=== PATIENT | male | born 1940 | race Caucasian/White ===

== ENCOUNTER 2023-11-18 10:05 | Outpatient (CLI) | payer MEDICARE, SELFPAY ==
--- NOTE | ~2023-11-18 | XR_ITS ---
EXAMINATION: XR chest 2V DATE: 11/18/2023 10:32 INDICATION: PICC line placement TECHNIQUE: frontal and lateral views of the chest were obtained. COMPARISON: None FINDINGS: Right upper extremity peripherally inserted central venous catheter (PICC) tip at the caudal superio r vena cava. Opacities at the bilateral lung bases with blunting of the bilateral costophrenic angle s and posterior sulci consistent with small right and tiny left pleural effusions with associated bas ilar atelectasis. No other airspace opacities, pulmonary edema or pneumothorax. Heart size is normal. Three lead pacemaker seen with leads projecting over the expected locations of the right atrial appe ndage, apex of the right ventricle and overlying the left ventricle likely having traversed the coron yrn sinus. IMPRESSION: 1. Right PICC line tip at the caudal superior vena cava. 2. Small right and very small left pleural effusions with associated basilar atelectasis although pne umonia not excludable. Reviewed, dictated and finalized at location B. IMPRESSION: 1. Right PICC line tip at the caudal superior vena cava. 2. Small right and very small left pleural effusions with associated basilar at electasis although pneumonia not excludable.
== END 2023-11-18 10:06 | disposition home or self-care (01) ==
PROVIDERS: PCP Family Medicine; Visit Provider Family Medicine
DX: Z45.2 Encounter for adjustment and management of vascular access device (principal); J90 Pleural effusion, not elsewhere classified
CPT/HCPCS: 71046

== ENCOUNTER 2024-03-12 14:16 | Outpatient (CLI) | payer MEDICARE, SELFPAY ==
--- NOTE | ~2024-03-12 | CT_ITS ---
EXAMINATION: CT brain wo/w con DATE: 03/12/2024 15:07 INDICATION: Unspecified dementia. TECHNIQUE: Computed tomography (CT) of the head was performed without and with 100 mL Omnipaque 350 i ntravenous contrast. The mA was adjusted according to patient size. Iterative reconstruction techniqu e was employed. The dose-length product was 1664.67 mGy-cm. COMPARISON: None FINDINGS: There is an old infarct in the right basal ganglia and adjacent white matter. There are sca ttered areas of low attenuation in the cerebral white matter. There is no intracranial hemorrhage, ac umkumiut infarction, or abnormal intracranial mass lesion. The ventricles are normal in size. The orbits a re normal. The paranasal sinuses are clear. The mastoid air cells are normal. IMPRESSION: 1. 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 2. Extensive nonspecific cerebral white matter disease, which likely represents chronic small vessel ischemic disease. Reviewed, dictated and finalized at location A. NCE FORCE SENIOR OFFICER
[2024-03-12 14:56] LABS: Estimated Glomerular Filt Rate > 60
== END 2024-03-12 14:17 | disposition home or self-care (01) ==
PROVIDERS: PCP Internal Medicine; Visit Provider Internal Medicine
DX: F03.90 Unspecified dementia, unspecified severity, without behavioral disturbance, psychotic disturbance, mood disturbance, and anxiety (principal); R90.82 White matter disease, unspecified
CPT/HCPCS: 70470; Q9967

== ENCOUNTER 2024-04-18 11:36 | Emergency (ER) | payer MEDICARE, SELFPAY ==
[2024-04-18] VITALS (13 sets, daily range): BP systolic 104–132; BP diastolic 49–64; PULSE 70–90; RESP 14–18; TEMP 36.6–36.7; O2SAT 95–100
--- OUTSIDE RECORDS SUMMARY | 2024-04-18 12:21 | XMS_ITS | Encounter Summary ---
Author Organization [facility] Address [address] [place] [address] Phone Care Team Providers Care Air Traffic Instructor Name Role Phone Jonah Cook MD Primary Care Provider [phone] Margarita Jaimes MD Unavailable [phone] Jeevan Gibson MD PhD Unavailable [phone] Olu Reis MD Unavailable +[phone] Brant Rodriguez DPM Unavailable + [phone] Cathi Freeman MD Unavailable Cesar Morris MD Primary Care Provider [phone] Serjio Pierre MD Primary Care Provider +[phone] Chris Gentile MD Primary Care Provider + [phone] Unknown, Notinfile Primary Care Provider Unavail able Tiana Hilario NP Primary Care Provider [phone] Encounter Details Date Type Department Care Team (Late st Contact Info) Description 04/27/2012 Orders Only [facility] ProviderPreston MD [address] [place] [address] Social History Tobacco Use Types Packs/Day Years Used Date Smoking Tobacco: Never Assessed Sex and Gender Information Value Date Recorded Sex Assigned at Male 05/11/2018 9:16 AM BUFFING MACHINE OPERATOR Legal Sex Male 1:34 AM BUFFING MACHINE OPERATOR Gender Identity Not on file Sexual Orientation Straight 05/11/2018 9: 16 AM BUFFING MACHINE OPERATOR documented as of this encounter Plan of Treatment Not on file documented as of this encounter Procedures Procedure Name Priority Date/Time Associated Diagnosis Comments CARDIOLOGY REPORT 04/27/2012 documented in this encounter Results * CARDIOLOGY REPORT (04/27/2012) Anatomical Region Laterality Modality Other Narrative 04/27/2012 Ordered by an unspecified provider. us Historical Provider [facility] JACOB ARTEAGA Final Result documented in this encounter Visit Diagnoses Not on filedocumented in this encounter Additional Health Concerns Infection Onset Date Last Indicated Resolved Time MDR gram neg/ESBL Comment:Contact 09/10/2021 10/19/2023 RSV, droplet 02/28/2023 02/28/2023 03/14/2023 3:05 AM BUFFING MACHINE OPERATOR COVID: Suspected 03/19/2023 03/19/2023 03/19/2023 9:02 AM BUFFING MACHINE OPERATOR COVID: Suspected 07/08/2023 07/08/2023 07/08/2023 10:20 PM CDT documented as of this encounter Care Teams Air Traffic Instructor Relationship Specialty Start Date End Date Jonah Cook MD [address] [address] PCP - General 01/31/10 02/18/22 Cesar Morris MD [address] [place] [address] PCP - General Internal Medicine 02/19/22 04/03/23 Serjio Pierre MD [address] [place] [address] PCP - General Internal Medicine 04/04/23 05/18/[address] [facility] [address] PCP - General Geriatric Medicine 09/03/23 10/09/23 Unknown, Notinfile PCP - General 10/19/23 01/11/24 Tiana Hilario, IMPORT SPECIALIST [address] [facility] [address] [place] [address] PCP - General Geriatric Medicine 01/12/24 Margarita Jaimes MD [address] [address] Referring Physician Endocrinology Diabetes & Metabolism 08/30/19 Jeevan Gibson MD PhD [address] [address] Referring Physician Cardiology 02/22/20 Olu Reis MD [address] [address] Referring Physician Cardiology 02/22/20 Brant Rodriguez DPM [address] [address] Referring Physician Podiatry 02/22/20 Cathi Freeman MD [address] [facility] [id number] [place] [address] Referring Physician Geriatric Medicine 10/09/20 documented as of this encounter
--- OUTSIDE RECORDS SUMMARY | 2024-04-18 12:21 | XMS_ITS | Encounter Summary ---
Author Organization [facility] Address [address] [place] [address] Phone Care Team Providers Care Front End Engineer Name Role Phone Jonah Cook MD Primary Care Provider [phone] Margarita Jaimes MD Unavailable [phone] Jeevan Gibson MD PhD Unavailable [phone] Olu Reis MD Unavailable +[phone] Brant Rodriguez DPM Unavailable + [phone] Cathi Freeman MD Unavailable Cesar Morris MD Primary Care Provider [phone] Serjio Pierre MD Primary Care Provider [phone] Chris Gentile MD Primary Care Provider + [phone] Unknown, Notinfile Primary Care Provider Unavail able Tiana Hilario NP Primary Care Provider [phone] Encounter Details Date Type Department Care Team (Late st Contact Info) Description 10/10/2014 Orders Only [facility] Provider, MD [facility] [place] [address] Social History Tobacco Use Types Packs/Day Years Used Date Smoking Tobacco: Never Alcohol Use Standard Drinks/Week Comments Yes 0 (1 standard drink = 0.6 oz pur e alcohol) Sex and Gender Information Value Date Recorded Sex Assigned at Male 05/11/2018 9:16 AM MULTIMEDIA PROJECT MANAGER Legal Sex Male 1:34 AM MULTIMEDIA PROJECT MANAGER Gender Identity Not on file Sexual Orientation Straight 05/11/2018 9: 16 AM MULTIMEDIA PROJECT MANAGER documented as of this encounter Plan of Treatment Not on file documented as of this encounter Procedures Procedure Name Priority Date/Time Associated Diagnosis Comments CARDIOLOGY REPORT 10/10/2014 documented in this encounter Results * CARDIOLOGY REPORT (10/10/2014) Anatomical Region Laterality Modality Other Narrative 10/10/2014 Ordered by an unspecified provider. us Historical Provider [facility] JACOB ARTEAGA Final Result documented in this encounter Visit Diagnoses Not on filedocumented in this encounter Additional Health Concerns Infection Onset Date Last Indicated Resolved Time MDR gram neg/ESBL Comment:Contact 09/10/2021 10/19/2023 RSV, droplet 02/28/2023 02/28/2023 03/14/2023 3:05 AM MULTIMEDIA PROJECT MANAGER COVID: Suspected 03/19/2023 03/19/2023 03/19/2023 9:02 AM MULTIMEDIA PROJECT MANAGER COVID: Suspected 07/08/2023 07/08/2023 07/08/2023 10:20 PM CDT documented as of this encounter Care Teams Front End Engineer Relationship Specialty Start Date End Date Jonah Cook MD [address] [facility] [address] [place] [address] PCP - General 01/31/10 02/18/22 Cesar Morris MD [address] [place] [address] PCP - General Internal Medicine 02/19/22 04/03/23 Serjio Pierre MD [address] [place] [address] PCP - General Internal Medicine 04/04/23 05/18/23 Chris Gentile MD [address] [facility] [address] [place] [address] PCP - General Geriatric Medicine 09/03/23 10/09/23 Unknown, Notinfile PCP - General 10/19/23 01/11/24 Tiana Hilario, DOMESTIC HELPER [address] [facility] [address] [place] [address] PCP - General Geriatric Medicine 01/12/24 Margarita Jaimes MD [address] [address] Referring Physician Endocrinology Diabetes & Metabolism 08/30/19 Jeeavn Gibson MD PhD [address] [address] Referring Physician Cardiology 02/22/20 Olu Reis MD [address] [address] Referring Physician Cardiology 02/22/20 Brant Rodriguez DPM [address] [address] Referring Physician Podiatry 02/22/20 Cathi Freeman MD [id number] [place] [address] Referring Physician Geriatric Medicine 10/09/20 documented as of this encounter
--- OUTSIDE RECORDS SUMMARY | 2024-04-18 12:21 | XMS_ITS | Encounter Summary ---
Author Organization [facility] Address [address] [place] [address] Phone Care Team Providers Care Yardmaster Name Role Phone Jonah Cook MD Primary Care Provider [phone] Margarita Jaimes MD Unavailable [phone] Jeevan Gibson MD PhD Unavailable [phone] Olu Reis MD Unavailable +[phone] Brant Rodriguez DPM Unavailable + [phone] Cathi Freeman MD Unavailable Cesar Morris MD Primary Care Provider [phone] Serjio Pierre MD Primary Care Provider [phone] Chris Gentile MD Primary Care Provider + [phone] Unknown, Notinfile Primary Care Provider Unavail able Tiana Hilario NP Primary Care Provider [phone] Encounter Details Date Type Department Care Team (Late st Contact Info) Description 10/14/2013 Orders Only [facility] Provider, MD Preston [facility] [place] [address] Social History Tobacco Use Types Packs/Day Years Used Date Smoking Tobacco: Never Alcohol Use Standard Drinks/Week Comments Yes 0 (1 standard drink = 0.6 oz pur e alcohol) Sex and Gender Information Value Date Recorded Sex Assigned at Male 05/11/2018 9:16 AM FLIPPING MACHINE OPERATOR Legal Sex Male 1:34 AM FLIPPING MACHINE OPERATOR Gender Identity Not on file Sexual Orientation Straight 05/11/2018 9: 16 AM FLIPPING MACHINE OPERATOR documented as of this encounter Plan of Treatment Not on file documented as of this encounter Procedures Procedure Name Priority Date/Time Associated Diagnosis Comments CARDIOLOGY REPORT 10/14/2013 documented in this encounter Results * CARDIOLOGY REPORT (10/14/2013) Anatomical Region Laterality Modality Other Narrative 10/14/2013 Ordered by an unspecified provider. us Historical Provider [facility] JACOB ARTEAGA Final Result documented in this encounter Visit Diagnoses Not on filedocumented in this encounter Additional Health Concerns Infection Onset Date Last Indicated Resolved Time MDR gram neg/ESBL Comment:Contact 09/10/2021 10/19/2023 RSV, droplet 02/28/2023 02/28/2023 03/14/2023 3:05 AM FLIPPING MACHINE OPERATOR COVID: Suspected 03/19/2023 03/19/2023 03/19/2023 9:02 AM FLIPPING MACHINE OPERATOR COVID: Suspected 07/08/2023 07/08/2023 07/08/2023 10:20 PM CDT documented as of this encounter Care Teams Yardmaster Relationship Specialty Start Date End Date Jonah Cook MD [address] [facility] [address] [place] [address] PCP - General 01/31/10 02/18/22 Cesar Morris MD [address] [place] [address] PCP - General Internal Medicine 02/19/22 04/03/23 Serjio Pierre MD [address] [place] [address] PCP - General Internal Medicine 04/04/23 05/18/23 Chris Gentile MD [address] [facility] [address] [place] [address] PCP - General Geriatric Medicine 09/03/23 10/09/23 Unknown, Notinfile PCP - General 10/19/23 01/11/24 Tiana Hilario, BROKERAGE COORDINATOR [address] [facility] [address] [place] [address] PCP - General Geriatric Medicine 01/12/24 Margarita Jaimes MD [address] [address] Referring Physician Endocrinology Diabetes & Metabolism 08/30/19 Jeevan Gibson MD PhD [address] [address] Referring Physician Cardiology 02/22/20 Olu Reis MD [address] [address] Referring Physician Cardiology 02/22/20 Brant Rodriguez DPM [address] [address] Referring Physician Podiatry 02/22/20 Cathi Freeman MD [id number] [place] [address] Referring Physician Geriatric Medicine 10/09/20 documented as of this encounter
--- OUTSIDE RECORDS SUMMARY | 2024-04-18 12:21 | XMS_ITS | Encounter Summary ---
Author Organization [facility] Address [address] [place] [address] Phone Care Team Providers Care Applications Tester Name Role Phone Jonah Cook MD Primary Care Provider [phone] Margarita Jaimes MD Unavailable [phone] Jeevan Gibson MD PhD Unavailable [phone] Olu Reis MD Unavailable +[phone] Brant Rodriguez DPM Unavailable + [phone] Cathi Freeman MD Unavailable Cesar Morris MD Primary Care Provider [phone] Serjio Pierre MD Primary Care Provider [phone] Chris Gentile MD Primary Care Provider + [phone] Unknown, Notinfile Primary Care Provider Unavail able Tiana Hilario NP Primary Care Provider [phone] Encounter Details Date Type Department Care Team (Late st Contact Info) Description 05/23/2015 Orders Only [facility] Provider, MD Preston [address] [place] [address] Social History Tobacco Use Types Packs/Day Years Used Date Smoking Tobacco: Never Alcohol Use Standard Drinks/Week Comments Yes 0 (1 standard drink = 0.6 oz pur e alcohol) Sex and Gender Information Value Date Recorded Sex Assigned at Male 05/11/2018 9:16 AM CRIME LABORATORY ANALYST Legal Sex Male 1:34 AM CRIME LABORATORY ANALYST Gender Identity Not on file Sexual Orientation Straight 05/11/2018 9: 16 AM CRIME LABORATORY ANALYST documented as of this encounter Plan of Treatment Not on file documented as of this encounter Procedures Procedure Name Priority Date/Time Associated Diagnosis Comments CARDIOLOGY REPORT 05/23/2015 documented in this encounter Results * CARDIOLOGY REPORT (05/23/2015) Anatomical Region Laterality Modality Other Narrative 05/23/2015 Ordered by an unspecified provider. us Historical Provider [facility] JACOB ARTEAGA Final Result documented in this encounter Visit Diagnoses Not on filedocumented in this encounter Additional Health Concerns Infection Onset Date Last Indicated Resolved Time MDR gram neg/ESBL Comment:Contact 09/10/2021 10/19/2023 RSV, droplet 02/28/2023 02/28/2023 03/14/2023 3:05 AM CRIME LABORATORY ANALYST COVID: Suspected 03/19/2023 03/19/2023 03/19/2023 9:02 AM CRIME LABORATORY ANALYST COVID: Suspected 07/08/2023 07/08/2023 07/08/2023 10:20 PM CDT documented as of this encounter Care Teams Applications Tester Relationship Specialty Start Date End Date Jonah Cook MD [address] [place] [address] PCP - General 01/31/10 02/18/22 Cesar Morris MD [address] [place] [address] PCP - General Internal Medicine 02/19/22 04/03/23 Serjio Pierre MD [address] [place] [address] PCP - General Internal Medicine 04/04/23 05/18/23 Chris Gentile MD [address] [facility] [address] [place] [address] PCP - General Geriatric Medicine 09/03/23 10/09/23 Unknown, Notinfile PCP - General 10/19/23 01/11/24 Tiana Hilario, ADVANCED REGISTERED NURSE [address] [facility] [address] [place] [address] PCP - General Geriatric Medicine 01/12/24 Margarita Jaimes MD [address] [address] Referring Physician Endocrinology Diabetes & Metabolism 08/30/19 Jeevan Gibson MD PhD [address] [address] Referring Physician Cardiology 02/22/20 Olu Reis MD [address] [address] Referring Physician Cardiology 02/22/20 Brant Rodriguez DPM [address] [address] Referring Physician Podiatry 02/22/20 Cathi Freeman MD [phone] [place] [address] Referring Physician Geriatric Medicine 10/09/20 documented as of this encounter
--- OUTSIDE RECORDS SUMMARY | 2024-04-18 12:21 | XMS_ITS | Encounter Summary ---
Author Organization [facility] Address [address] [place] [address] Phone Care Team Providers Care Terminal Makeup Operator Name Role Phone Jonah Cook MD Primary Care Provider [phone] Margarita Jaimes MD Unavailable [phone] Jeevan Gibson MD PhD Unavailable +[phone] Olu Reis MD Unavailable +[phone] Brant Rodriguez DPM Unavailable + [phone] Cathi Freeman MD Unavailable Cesar Morris MD Primary Care Provider [phone] Serjio Pierre MD Primary Care Provider +[phone] Chris Gentile MD Primary Care Provider + [phone] Unknown, Notinfile Primary Care Provider Unavail able Tiana Hilario NP Primary Care Provider [phone] Encounter Details Date Type Department Care Team (Late st Contact Info) Description 04/18/2014 Orders Only [facility] Provider, MD Preston [facility] [place] [address] Social History Tobacco Use Types Packs/Day Years Used Date Smoking Tobacco: Never Alcohol Use Standard Drinks/Week Comments Yes 0 (1 standard drink = 0.6 oz pur e alcohol) Sex and Gender Information Value Date Recorded Sex Assigned at Male 05/11/2018 9:16 AM SHIPYARD HELPER Legal Sex Male 1:34 AM SHIPYARD HELPER Gender Identity Not on file Sexual Orientation Straight 05/11/2018 9: 16 AM SHIPYARD HELPER documented as of this encounter Plan of Treatment Not on file documented as of this encounter Procedures Procedure Name Priority Date/Time Associated Diagnosis Comments CARDIOLOGY REPORT 04/18/2014 documented in this encounter Results * CARDIOLOGY REPORT (04/18/2014) Anatomical Region Laterality Modality Other Narrative 04/18/2014 Ordered by an unspecified provider. us Historical Provider [facility] JACOB ARTEAGA Final Result documented in this encounter Visit Diagnoses Not on filedocumented in this encounter Additional Health Concerns Infection Onset Date Last Indicated Resolved Time MDR gram neg/ESBL Comment:Contact 09/10/2021 10/19/2023 RSV, droplet 02/28/2023 02/28/2023 03/14/2023 3:05 AM SHIPYARD HELPER COVID: Suspected 03/19/2023 03/19/2023 03/19/2023 9:02 AM SHIPYARD HELPER COVID: Suspected 07/08/2023 07/08/2023 07/08/2023 10:20 PM CDT documented as of this encounter Care Teams Terminal Makeup Operator Relationship Specialty Start Date End Date Jonah Cook MD [address] [facility] [address] [place] [address] PCP - General 01/31/10 02/18/22 Cesar Morris MD [address] [place] [address] PCP - General Internal Medicine 02/19/22 04/03/23 Serjio Pierre MD [address] [place] [address] PCP - General Internal Medicine 04/04/23 05/18/23 Chris Gentile MD [address] [facility] [address] [place] [address] PCP - General Geriatric Medicine 09/03/23 10/09/23 Unknown, Notinfile PCP - General 10/19/23 01/11/24 Tiana Hilario, BULL LADLE TENDER [address] [facility] [address] [place] [address] PCP - General Geriatric Medicine 01/12/24 Margarita Jaimes MD [address] [address] Referring Physician Endocrinology Diabetes & Metabolism 08/30/19 Jeevan Gibson MD PhD [address] [address] Referring Physician Cardiology 02/22/20 Olu Reis MD [address] [address] Referring Physician Cardiology 02/22/20 Brant Rodriguez DPM [address] [address] Referring Physician Podiatry 02/22/20 Cathi Freeman MD [address] [phone] [place] [address] Referring Physician Geriatric Medicine 10/09/20 documented as of this encounter
--- OUTSIDE RECORDS SUMMARY | 2024-04-18 12:21 | XMS_ITS | Data Portability ---
Author Organization [place] [facility], Main Office Address [address] [place] [address] Care Team Providers Care Bootmaker Name Role Phone [facility] OTHER BEV RAMOS Clinical Cardiac Electrophysiolo gist LANDON NAJERA Urologist MILLY SANCHEZ Cement Fittings Maker BLAYNE HUNTER SI Neurologist Assessment Encounter Date Assessment Date Assessment LastModified by Organization Details LastModified Time 05/19/2023 05/19/2023 Patient presente d to office today for their Medicare Annual Wellness Visit. Education was provided on healthy nutrition, including a diet rich in fruits and vegetables, minimizing simple carbohydrates, salt, and saturated fats. Encouraged regular cardiovascular exercise such as walking at least 30 minutes daily, 5 times per week. Emphasized preventive health measures and educated pt on fall prevention and community-based lifestyle interventions to help reduce health risks and promote healthy living. 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 Not available 06/26/2023 18:22:29 Plan of Treatment Reminders Order Date Submit Date Provider Last Modified By Organization Details Last Modified Time Details Appointments None recorded. Lab None recorded. Referral nutritionis t/dietitian referral 2023 024 [email or web address] Not available 4 11:20:05 nutritionis t/dietitian referral 2023 024 [email or web address] Not available 4 11:20:05 physical therapist referral 2023 024 [email or web address] Not available 4 10:45:53 occupationa l therapist referral 2023 024 [email or web address] Not available 4 10:45:53 physical therapist referral 2023 024 [email or web address] Not available 4 11:20:05 occupationa l therapist referral 2023 024 [email or web address] Not available 4 11:20:05 Procedures None recorded. Surgeries None recorded. Imaging None recorded. Medication Orders aspirin 81 mg chewable tablet 2023 024 [email or web address] Not available 4 14:27:27 insulin lispro (U-100) 100 unit/mL subcutaneou s solution 2023 024 Not available 4 18:49:38 Jardiance 10 mg tablet 2023 024 Not available 4 18:49:31 buspirone 5 mg tablet 2023 024 [email or web address] Not available 4 14:27:27 escitalopra m 20 mg tablet 2023 024 [email or web address] Not available 4 14:27:27 quetiapine 25 mg tablet 2023 024 [email or web address] Not available 4 14:27:27 trazodone 50 mg tablet 2023 024 [email or web address] 7 Not available 4 14:27:28 finasteride 5 mg tablet 2023 024 [email or web address] Not available 4 14:27:28 methenamine hippurate 1 gram tablet 2023 024 [email or web address] Not available 4 14:27:27 cholecalcif sarah (vitamin D3) 125 mcg (5,000 unit) capsule 2023 024 [email or web address] Not available 4 14:27:27 sodium chloride 1,000 mg soluble tablet 2023 024 [email or web address] 7 Not available 4 14:27:27 pantoprazol e 40 mg tablet,nancy yed release 2023 024 [email or web address] 7 Not available 4 14:27:28 metoprolol succinate ER 25 mg tablet,exte nded release 24 hr 2023 024 [email or web address] Not available 4 14:27:27 Entresto 24 mg-26 mg tablet 2023 024 [email or web address] Not available 4 14:27:28 furosemide 40 mg tablet 2023 024 Not available 4 15:48:16 potassium chloride ER 20 mEq tablet,exte nded release 2023 024 [email or web address] Not available 4 14:27:27 spironolact one 25 mg tablet 2023 024 [email or web address] Not available 4 14:27:27 acetaminoph en 325 mg tablet 2023 024 [email or web address] Not available 4 11:20:28 trazodone 50 mg tablet 2023 024 ssaleeby Not available 4 11:20:30 methenamine hippurate 1 gram tablet 2023 024 ssaleeby Not available 4 11:20:26 empaglifloz in 25 mg tablet 2023 024 ssaleeby Not available 4 11:20:24 insulin glargine (U-100) 100 unit/mL (3 mL) subcutaneou s pen 2023 024 ssaleeby Not available 4 11:20:25 albuterol sulfate HFA 90 mcg/actuati on aerosol inhaler 2023 024 [email or web address] Not available 4 11:20:27 fluticasone propionate 50 mcg/actuati on nasal spray,suspe nsion 2023 024 ssaleeby Not available 4 11:20:29 pantoprazol e 40 mg tablet,nancy yed release 2023 024 ssaleeby Not available 4 11:20:29 ondansetron 4 mg disintegrat ing tablet 2023 024 ssaleeby Not available 4 11:20:29 sodium chloride 1,000 mg soluble tablet 2023 024 ssaleeby Not available 4 11:20:29 triamcinolo ne acetonide 0.1 % topical cream 2023 024 ssaleeby Not available 4 11:20:29 apixaban 5 mg tablet 2023 024 ssaleeby Not available 4 11:20:25 furosemide 40 mg tablet 2023 024 Not available 4 15:48:16 spironolact one 25 mg tablet 2023 024 ssaleeby Not available 4 11:20:26 sacubitril 24 mg-valsarta n 26 mg tablet 2023 024 ssaleeby Not available 4 11:20:26 potassium chloride ER 20 mEq tablet,exte nded release 2023 024 ssaleeby Not available 4 11:20:27 aspirin 81 mg chewable tablet 2023 024 ssaleeby Not available 4 11:20:27 cholecalcif sarah (vitamin D3) 125 mcg (5,000 unit) capsule 2023 024 ssaleeby Not available 4 11:20:30 metoprolol succinate ER 25 mg tablet,exte nded release 24 hr 2023 024 ssaleeby Not available 4 11:20:26 escitalopra m 20 mg tablet 2023 024 ssaleeby Not available 4 11:20:28 quetiapine 25 mg tablet 2023 024 ssaleeby Not available 4 11:20:25 buspirone 5 mg tablet 2023 024 ssaleeby Not available 4 11:20:28 white petrolatum- mineral oil 83 %-15 % eye ointment 2023 024 [email or web address] Not available 4 11:20:28 polyethylen e glycol 3350 17 gram oral powder packet 2023 024 ssaleeby Not available 4 11:20:28 docusate sodium 100 mg capsule 2023 024 ssaleeby Not available 4 11:20:28 tamsulosin 0.4 mg capsule 2023 024 ssaleeby Not available 4 11:20:26 finasteride 5 mg tablet 2023 024 ssaleeby Not available 4 11:20:27 insulin glargine (U-100) 100 unit/mL (3 mL) subcutaneou s pen 2023 024 [email or web address] Not available 4 16:17:02 nystatin 100,000 unit/gram topical powder 2023 024 [email or web address] Not available 4 16:17:02 nystatin 100,000 unit/gram topical ointment 2023 024 [email or web address] Not available 4 16:17:03 spironolact one 25 mg tablet 2023 024 [email or web address] Not available 4 16:17:02 furosemide 20 mg tablet 2023 024 [email or web address] Not available 16:17:02 Patient TargetsNo targets recorded. Patient Instructions Encounter Date Encounter Id Patient Instructions Last Modified By Organization Details Last Modified Time 05/19/2023 [id number] advance care planning: care instructions Not available 05/19/2023 14:27:28 medicare preventive services guide Not available 05/19/2023 14:27:27 Discussed and explained advance directives such as standard forms to the {{patient* caregiv er patient and caregiver}}. Face to face discussion lasted for a duration of {{less than 30 minutes greater than 30 minutes 19 minutes#}}. Not available 05/19/2023 14:25:25 06/13/2023 [id number] EMR, VS and rece nt labs reviewed. Results discussed with collaborative physician and nursing staff, patient and care team involved in decision making and agreeable to plan of care. I spent {{ 58#}} minutes providing care to the patient today. More than 50% of that time was spent in discussing the expected course of the disease, discussing prognosis, coordinating care and counseling of the patient/family. [email or web address] Not available 06/17/2023 15:13:29 06/20/2023 [id number] I spent {{16 17 18 19 20 2 1 22* 23 24 25}} minutes counseling and discussing advance directives and/or end of life care planning and decisions with the {{patient surrogat e patient and surrogate*}} today. I reviewed the current relevant diagnoses, treatment options, natural history, and prognosis and clarified the patient's goals of care. The patient has advance directives in place, his Marissa is his power of decontamination worker, and he wishes to be DNR per Marissa. Not available 06/26/2023 18:42:52 07/07/2023 [id number] I spent {{ 98#}} minutes providing care to the patient today. More than 50% of that time was spent in discussing the expected course of the disease, discussing prognosis, coordinating care and counseling of the patient/family. Not available 07/08/2023 15:45:05 Reason for Referral Physical Therapist Referral for Fall Referring Physician: Ajay Agrawal Internal Medicine, Encounter Date: 06/20/2023 Occupational Therapist Refer ral for Fall Referring Physician: Ajay Agrawal Internal Medicine, Encounter Date: 06/20/2023 Airline Pilot Flight Instructor/dietitian Refer ral for Diabetes mellitus Referring Physician: Ajay Agrawal Internal Medicine, Encounter Date: 06/20/2023 Airline Pilot Flight Instructor/dietitian Refer ral for Congestive heart failure Referring Physician: Ajay Agrawal Internal Medicine, Encounter Date: 06/20/2023 Physical Therapist Referral for Unable to walk Referring Physician: Ajay Agrawal Internal Medicine, Encounter Date: 06/20/2023 Occupational Therapist Refer ral for Unable to walk Referring Physician: Ajay Agrawal Internal Medicine, Encounter Date: 06/20/2023 Results Created Date Observation Date Name Description Value Unit Range Abnormal Flag Note LastModifiedBy Organization Detail LastModifiedTime 07/08/19 24 07/08/2023 XR, abdom en No observ ation record ed. Not Available 2023 23:04:50 Result Notes None recorded. Procedures Surgical History Date Name Laterality Status Provider Name and Address Organization Details Recorded Time implantation of cardiac [place] [address] [place], [address], [facility] [employer] [facility] 06/20/2023 14:36:44 lumbar puncture completed MAXIMO TRISTAN, ARJUN [address] [place], [address], [facility] [employer] [facility] 04/16/2023 14:54:56 [place] [address] [facility] [place], [address], [place] [facility] 04/16/2023 14:55:09 [place] [address] [place], [address], [facility] 06/26/2023 10:59:35 Imaging Results Imaging Date Name Status LastModified by Organiz ation Details LastModified Time 07/08/2023 XR, abdomen completed Information n ot available 07/08/2023 23:04:50 Procedure Notes None recorded. Medical Equipment None Reported. Allergies Allergen ID Allergen Name Allergen Category Reaction Reaction Severity Criticality Documentation Date Start Date Code Code System Note Provider Name and Address Organization Details Recorded Time 37136 cephalexi n medicatio n Not available Not available Not available 03/27/2023 2231 RxNorm Not Available Not Available Not Available Medications Name Sig Start Date Stop Date Status Note LastModified by Organization Details LastModified Time quetiapine 25 mg tablet Take 0.5 tablets every day by oral route. 2023 active Not Available Not Available Not Avai lable furosemide 40 mg tablet Take 1 tablet every day by oral route. 07/07 completed Not Available Not Available Not Available buspirone 5 mg tablet Take 0.5 tablets every day by oral route. 2023 active Not Available Not Available Not Avai lable acetaminoph en 325 mg tablet Take 2 tablets every 4 hours by oral route as needed. 2023 active Not Available Not Available Not Avai lable trazodone 50 mg tablet Take 0.5 tablets every day by oral route at bedtime. 2023 active Not Available Not Available Not Avai lable polyethylen e glycol 3350 17 gram oral powder packet Take 1 packet every day by oral route as needed. 2023 active Not Available Not Available Not Avai lable nystatin 100,000 unit/gram topical ointment Apply 1 applicati on twice a day by topical route. 2023 active Not Available Not Available Not Avai lable guaifenesin 100 mg/5 mL oral liquid Take 10 mL every 8 hours by oral route as needed. 04/18 completed Not Available Not Available Not Available triamcinolo ne acetonide 0.1 % topical cream Apply 1 applicati on twice a day by topical route as needed. 2023 active Not Available Not Available Not Avai lable spironolact one 25 mg tablet Take 12.5 mg every day by oral route. 2023 active Not Available Not Available Not Avai lable methenamine hippurate 1 gram tablet Take 1 tablet twice a day by oral route. 2023 active Not Available Not Available Not Avai lable ascorbic acid (vitamin C) 500 mg tablet Take 1 tablet twice a day by oral route. 06/25 completed Not Available Not Available Not Available tamsulosin 0.4 mg capsule Take 1 capsule every day by oral route. 2023 active Not Available Not Available Not Avai lable pantoprazol e 40 mg tablet,nancy yed release Take 1 tablet every day by oral route. 2023 active Not Available Not Available Not Avai lable docusate sodium 100 mg capsule Take 1 capsule every day by oral route. 2023 active Not Available Not Available Not Avai lable aspirin 81 mg chewable tablet Chew 1 tablet every day by oral route. 2023 active Not Available Not Available Not Avai lable furosemide 20 mg tablet Take 1 tablet every day by oral route. 2023 active Not Available Not Available Not Avai lable metoprolol succinate ER 25 mg tablet,exte nded release 24 hr Take 1 tablet every day by oral route. 2023 active Not Available Not Available Not Avai lable nystatin 100,000 unit/gram topical powder Apply 1 applicati on twice a day by topical route. 2023 active Not Available Not Available Not Avai lable insulin lispro (U-100) 100 unit/mL subcutaneou s solution Inject 1 sliding scale dose 3 times a day by subcutane ous route. 06/25 completed Not Available Not Available Not Available albuterol sulfate HFA 90 mcg/actuati on aerosol inhaler Inhale 2 puffs every 4 hours by inhalatio n route as needed. 2023 active Not Available Not Available Not Avai lable ondansetron 4 mg disintegrat ing tablet Place 1 tablet every 4 hours by transling ual route as needed. 2023 active Not Available Not Available Not Avai lable fluticasone propionate 50 mcg/actuati on nasal spray,suspe nsion [place] 1 spray every day by intranasa l route as needed. 2023 active Not Available Not Available Not Avai lable cholecalcif sarah (vitamin D3) 125 mcg (5,000 unit) capsule Take 1 capsule every week by oral route. 2023 active Not Available Not Available Not Avai lable finasteride 5 mg tablet Take 1 tablet every day by oral route. 2023 active Not Available Not Available Not Avai lable escitalopra m 20 mg tablet Take 1 tablet every day by oral route. 2023 active Not Available Not Available Not Avai lable sodium chloride 1,000 mg soluble tablet Take 500 mg twice a day by miscell. route. 2023 active Not Available Not Available Not Avai lable insulin glargine (U-100) 100 unit/mL (3 mL) subcutaneou s pen Inject 15 units every day by subcutane ous route. 2023 active Not Available Not Available Not Avai lable white petrolatum- mineral oil 83 %-15 % eye ointment Apply 1 applicati on every 4 hours by ophthalmi c route as needed. 2023 active Not Available Not Available Not Avai lable apixaban 5 mg tablet Take 1 tablet twice a day by oral route. 2023 active Not Available Not Available Not Avai lable menthol 4 % topical gel Apply 1 applicati on twice a day by topical route as needed. 04/18 completed Not Available Not Available Not Available potassium chloride ER 20 mEq tablet,exte nded release Take 1 tablet every day by oral route. 2023 active Not Available Not Available Not Avai lable empaglifloz in 25 mg tablet Take 1 tablet every day by oral route. 2023 active Not Available Not Available Not Avai lable empaglifloz in 10 mg tablet Take 1 tablet every day by oral route. 06/25 completed Not Available Not Available Not Available sacubitril 24 mg-valsarta n 26 mg tablet Take 1 tablet twice a day by oral route. 2023 active Not Available Not Available Not Avai lable Vitals Date Recorded Body height Body mass index (BMI) Body weight Heart rate Oxygen saturation Oxygen saturation in Arterial blood by Pulse oximetry Body temperature Systolic blood pressure Diastolic blood pressure Provider Name and Address Organization Details Last Updated DateTime 4 190.5 cm 29.2 kg/m2 617772. 18 g 76 /min 98 % 98 % 98.6 [degF] 106 mm[Hg] 74 mm[Hg] SOMMER MARTIN [address] [place], [address], [facility] [place] 4 13:56:36 Date Recorded Body height Provider Name an d Address Organization Details Last Updated DateTime 05/27/2023 190.5 cm SOMMER MARTIN [address] [place], [address], [facility] [place] 05/27/2023 21:55:47 Date Recorded Body height Body mass index (BMI) Body weight Heart rate Oxygen saturation Oxygen saturation in Arterial blood by Pulse oximetry Respiratory rate Body temperature Systolic blood pressure Diastolic blood pressure Provider Name and Address Organization Details Last Updated DateTime 4 190.5 cm 29.7 kg/m2 261131. 98 g 68 /min 97 % 97 % 20 /min 97.6 [degF] 108 mm[Hg] 60 mm[Hg] SOMMER MARTIN [address] [place], [address], [facility] [place] 4 11:35:54 Date Recorded Body height Provider Name an d Address Organization Details Last Updated DateTime 06/20/2023 190.5 [place] [address] [place], [address], [facility] [place] 06/20/2023 14:18:15 Date Recorded Body mass index (BMI) Body weight Heart rate Oxygen saturation Oxygen saturation in Arterial blood by Pulse oximetry Respiratory rate Body temperature Systolic blood pressure Diastolic blood pressure Provider Name and Address Organization Details Last Updated DateTime 4 29.6 kg/m2 158973. 39 g 90 /min 97 % 97 % 18 /min 97.9 [degF] 110 mm[Hg] 58 mm[Hg] Alysha Marr [place] - [facility] 4 16:42:28 Date Recorded Body height Heart rate Oxygen saturation Oxygen saturation in Arterial blood by Pulse oximetry Respiratory rate Body temperature Body mass index (BMI) Body weight Systolic blood pressure Diastolic blood pressure Provider Name and Address Organization Details Last Updated DateTime 4 190.5 cm 58 /min 95 % 95 % 18 /min 98.1 [degF] 3.4 kg/m2 22674.9 9 g 118 mm[Hg] 56 mm[Hg] Melida Akers [place] [facility] 4 10:12:35 Social History Question Answer Notes LastModified by Organizat ion Details LastModified Time Tobacco Smoking Status Never Smoker MAXIMO SCHNEIDER, ARJUN [address] [place], [address], [place] [facility] 04/16/2023 14:59:25 Do You Have An Advance Directive? Yes Information not available 06/26/2023 What Is Your Level Of Alcohol Consumption? None [email or web address] Information not available 04/16/2023 What Is Your Code Status? 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 No [email or web address] Information not available 04/16/2023 Live Alone Or With Others? With Others [facility] Since 08/2022 Information not available 06/20/2023 Do You Have A Caregiver? Yes Information not available 06/20/2023 Do You Have A Medical Power Of Hot Room Attendant? Yes Information not available 06/26/2023 What Is Your Relationship Status? Marissa Information not available 06/20/2023 Do You Use Any Illicit Or Recreational Drugs? No [email or web address] Information not available 04/16/2023 Sex: Unknown Functional Status None recorded. Mental Status None recorded. Family History Relationship Description Onset Age of this Age Resolved Age Notes LastModified by Organization Details LastModified Time Mother Primary malignant neoplasm of colon [email or web address] Not available 2023 14:55:43 Brother Type 2 diabetes mellitus Not available 2023 14:56:06 Brother Alcohol abuse [email or web address] Not available 2023 14:56:45 Brother Diabetes mellitus [email or web address] Not available 2023 14:58:27 Father Cerebrovascu lar accident [email or web address] Not available 09/2023 14:58:06 Father Heart disease [email or web address] Not available 2023 14:58:18 Sister Malignant neoplastic disease [email or web address] Not available 2023 14:58:55 Medical History Condition Response Psychiatric -- Anxiety Disorder Y Stroke (CVA) Y Urinary Tract Infection (UTI) Y Atrial Fibrillation Y COPD Y Cancer -- Skin Y Obesity Y Pacemaker / ICD Y Dysphagia Y Vitamin D Deficiency Y Sleep Apnea / GINO Y Cancer -- Prostate Y Parkinson's Disease Y Psychiatric -- Depression Y Back Pain Y Peripheral Vascular Disease (PVD) Y Benign Prostatic Hyperplasia (BPH) Y COVID-19 Y Diabetes Y Congestive Heart Failure (CHF) Y Hyperlipidemia Y Dementia Y Neuropathy Y Pulmonary Embolism Y Hypertension Y Past Encounters Encounter ID Performer Location Encounter Start Date Encounter Closed Date Diagnosis/Indication Diagnosis SNOMED-CT Code Diagnosis ICD10 Code Diagnosis Note [id number] [facility] [address] [place] [address] 04/14/2023 13:39:42 04/29/2023 12:14:05 Essential hypertension 89282023 I10 Metoprolol tartrate 25 mg immediate release - stopped at last hospital visit 42/5 hold parameter on Metoprolol , hold if SBP <100 .Fall in 2023 - ordered orthostati c VS x 1 check2/5 VS reviewed/s table. Asthenia 76963065 R53.1 weakness and incontinen ce - need for therapy.pa tient using wheelchair and sit/stand assist for transfers, non ambulatory recent hospitaliz ation and further worsening of weakness2/ 5 ordered PT/OT per patient and his 's request Infection caused by extended spectrum beta-lactamase producing Escherichia coli 093963131 Z16.12 recent hospitaliz ation for ESBL UTIthree admissions in March 2023 due to recurrent UTI06/2021 + UTI with hydronephr osis09/11/19 22 + UTI02/20/ 3 >100,000 E.Coli ESBL confirmed, not sensitive to any PO, required IV antibiotic 03/27/23 >100,000 E.coli ESBL confirmed, not sensitive to any PO, required IV antibiotic s Open wound of right lower leg [id number] 0716196 S81.801D two dime sized wounds on frost of right lower leg.patien t and said it is from hitting the sit to stand during transfers. on 02/21/23 - [facility] for care of these wounds and for getting a skin biopsy of the RLE.Wound Ulcer described as RLE 100% hypergranu lation 1x0.8 cm with scant exudate, sero-sangu ineous. Mechanical Debridemen t completed with NS and 4x4's.Curr ent Tx: Every 3 days and PRN: Clean with wound cleanser or NS, apply Xeroform and wrap with Kerlix.Andres lux consulted and following. Specialty Mattress in use.compli cated healing due to DM II with neuropathy .past Arterial Dopplers showed: mild to moderate PAD.On Fall precaution s.On Tylenol 650 mg Q 4 hours PRN for pain Peripheral neuropathy due to type 2 diabetes mellitus 6715240189 107 E11.42 complicate d healing and therapyusi ng wheelchair consistent ly, not ambulating using sit to stand for all transfers Atrial fibrillation 4943 6004 I48.91 trend heart rateson Eliquis 5 mg BID, 81 mg ASA daily, Metoprolol XL 25 mg ext release tab daily.sees Cardiologi st at [facility] on 07/18/22 and possibly on 01/23/23, Dr. Gavino Dewey .persisten t Oskar carrillo CBC, Lipid panel in January 2023.check PT/INR Urinary incontinence 165 269580 R32 chronic urinary incontinen ceApril 2021 - admitted for AMS due to UTIretenti on was >1 L with hydronephr osis present, ended up with Tom for 2 months, removed in August 2021, incontinen ce of urine since.on Flomax 2021, Hiprex started with Vit C.sees Urologist Dr. Landon Najera at [facility] , last visit 11/19/22 for UTI, LUTS, and Prostate Cancer.On Tamsulosin (Flomax) 0.4 mg every evening, Vit C 500mg BID with his Methenamin e(Hiprex) 1 gm BID.F/U visit with Urology on 11/21/23 with Radha Rooney DNP at [facility] in [place], [place] . History of malignant neoplasm of prostate [id number] Z85.46 history of Harley 6 prostate cancerdian osed 2010treate d with phytoestro gen herbal product (ProstaSol ) that caused hypogonadi smenlarge prostate, was [address] scan[address]2012 PSA 0.61/ PSA 0.96 Lower urin yrn tract symptoms due to benign prostatic hypertrophy [id number] 9101 N40.1 Dementia [id number] F03.90 on Lexapro 20mg daily Parkinson's disease 4904 9000 G20.A1 on Buspar 5 mg BIDon Depakote sprinkle/D ivalproex 125 mg BIDneed to check Depakote level on labs. Permanent cardiac pacemaker [id number] 03708 Z95.0 06/24/23 Cardiac device check at 1:15pm with [facility] Bev Ramos, Cardiologi , at that time as well. Congestive heart failure 19392714 I50.9 Albuterol inhaler 2 puffs Q 4 hours PRN for wheezingon Lasix 40 mg Dailyon 20 meq KCL dailyon Entresto (sacubitnl -valsartan 24-26 mg tab) 1 tab BIDon Spironolac tone 25 mg tablet daily Vitamin D deficiency 347 97488 E55.9 On daily Vit D 5,000 units Chronic ur inary tract infection 799397491 N39.0 follow with Urologist - see aboveCipro 500mg daily BID Constipation 12730142 K5 9.00 on Colace 100mg dailyMiral ax 17 gm [id number] Milk of Magneium PRN daily2/ and 2/7 denies constipati on Type 2 surya betes mellitus 28940047 E11.21 on Jardiance 10mg (empaglifl ozin) PO dailyon Lispro SSI starting at glucose 151, call if greater than 351 Benign pro static hyperplasia with outflow obstruction 492549470 N40.1 sees urologist - as noted aboveF/U visit with Dr.Paul Najera's IT APPLICATIONS ANALYST Radha on 11/21/23tak es Proscar (Finasteri de) 5 mg nightlyOn Tamsulosin (Flomax) 0.4 mg every evening, Vit C 500mg BID with his Methenamin e(Hiprex) 1 gm BID. Allergic rhinitis 545326 04 J30.9 on Albuterol PRNon Flonase 1 spray daily PRN Cough 34837318 R05.9 not sure if cough related to Allergies or CHF2/5 no cough heard today during examon Albuterol Inhaler PRNon Guifenesin 20mg/ml syrup, 10ml TID PRN Osteoarthritis 359861383 M19.90 bilateral kneesmenth ol 4% gel BID PRN to both knees Chronic hyponatremia 503 13930 E87.1 on sodium chloride 1 gm tab BID Insomnia 263526622 G47.0 0 discussed the importance of good sleep hygiene, including: * ensuring adequate exposure to natural light* keeping a consistent sleep schedule* limiting daytime naps to 30 minutes* avoiding stimulants such as caffeine close to bedtime* working hard in therapy/ex ercising to promote good quality sleep* steering clear of food right before sleep that can be disruptive * limit exposure to bright light in the evenings* turn off electronic devices at least 30 minutes before bedtimeon Trazadone 25 mg tab nightly [id number] MAXIMO SCHNEIDER, ARJUN [facility] ne: [address] [place] [address] 04/16/2023 17:05:02 04/29/2023 12:15:43 Essential hypertension 91733495 I10 Metoprolol tartrate 25 mg immediate release - stopped at last hospital visit 42/5 hold parameter on Metoprolol , hold if SBP <100 .Fall in 2023 - ordered orthostati c VS x 1 check2/ & 2/ VS reviewed/s table. Asthenia 40095869 R53.1 weakness and incontinen ce - need for therapy.pa tient using wheelchair and sit/stand assist for transfers, non ambulatory recent hospitaliz ation and further worsening of weakness2/ 5 ordered PT/OT per patient and his 's request Infection caused by extended spectrum beta-lactamase producing Escherichia coli 490415417 Z16.12 recent hospitaliz ation for ESBL UTIthree admissions in March 2023 due to recurrent UTI06/2021 + UTI with hydronephr osis09/11/19 22 + UTI 3 >100,000 E.Coli ESBL confirmed, not sensitive to any PO, required IV antibiotic 03/27/23 >100,000 E.coli ESBL confirmed, not sensitive to any PO, required IV antibiotic s2 no s/s of UTI today Open wound of right lower leg [id number] 9560516 S81.801D two dime sized wounds on frost of right lower leg.patien t and said it is from hitting the sit to stand during transfers. on 02/21/23 - [facility] for care of these wounds and for getting a skin biopsy of the RLE.Wound Ulcer described as RLE 100% hypergranu lation 1x0.8 cm with scant exudate, sero-sangu ineous. Mechanical Debridemen t completed with NS and 4x4's.Curr ent Tx: Every 3 days and PRN: Clean with wound cleanser or NS, apply Xeroform and wrap with Kerlix.Andres lux consulted and following. Specialty Mattress in use.compli cated healing due to DM II with neuropathy .past Arterial Dopplers showed: mild to moderate PAD.On Fall precaution s.On Tylenol 650 mg Q 4 hours PRN for pain2/[address] , RLE ulcer with scab in place, no redness. Peripheral neuropathy due to type 2 diabetes mellitus 2792756738 107 E11.42 complicate d healing and therapyusi ng wheelchair consistent ly, not ambulating using sit to stand for all transfers2 /7 recent glucose levels reviewed, A1C ordered for 04/22 Atrial fibrillation 4943 6004 I48.91 trend heart rateson Eliquis 5 mg BID, 81 mg ASA daily, Metoprolol XL 25 mg ext release tab daily.sees Cardiologi st at [facility] on 07/18/22 and possibly on 01/23/23, Dr. Gavino Muse-Sarahi .rosaline carrillo CBC, Lipid panel in January 2023.check PT/INR04/16 VS reviewed, stable. Urinary incontinence 165 130320 R32 chronic urinary incontinen ceApril 2021 - admitted for AMS due to UTIretenti on was >1 L with hydronephr osis present, ended up with Tom for 2 months, removed in August 2021, incontinen ce of urine since.on Flomax 2021, Hiprex started with Vit C.sees Urologist Dr. Landon Najera at [facility] , last visit 11/19/22 for UTI, LUTS, and Prostate Cancer.On Tamsulosin (Flomax) 0.4 mg every evening, Vit C 500mg BID with his Methenamin e(Hiprex) 1 gm BID.F/U visit with Urology on 11/21/23 with Radha Rooney DNP at [facility] surgery in [place], [place] . 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, was 92 [address] on June [address] scan.2012 PSA 0.61/ PSA 0.96 Lower urin yrn tract symptoms due to benign prostatic hypertrophy 1200400626 9101 N40.1 see plan above for urinary retention and UTIs Dementia 83850861 F03.90 on Lexapro 20mg daily04/16 cooperativ e, participat ing in activities , following commands, pleasant Parkinson's disease 4904 9000 G20.A1 on Buspar 5 mg BIDon Depakote sprinkle/D ivalproex 125 mg BIDneed to check Depakote level on labs.04/16 cooperativ e, participat ing in activities , following commands, pleasant Permanent cardiac pacemaker [id number] 04487 Z95.0 06/24/23 Cardiac device check at 1:15pm with [facility] in [facility] Dr. Bev Ramos, Cardiologi , at that time as well.04/16 VS reviewed, HR stable, regular Congestive heart failure 02110108 I50.9 Albuterol inhaler 2 puffs Q 4 hours PRN for wheezingon Lasix 40 mg Dailyon 20 meq KCL dailyon Entresto (sacubitnl -valsartan 24-26 mg tab) 1 tab BIDon Spironolac tone 25 mg tablet daily04/16 no wheezing, no crackles, no edema to BLEon daily weights Vitamin D deficiency 347 26801 E55.9 On daily Vit D 5,000 unitscheck ing level on labs 04/22 Chronic ur inary tract infection 598188167 N39.0 follow with Urologist - see aboveCipro 500mg daily BID completed now04/14 or 04/15 UA Flex collected and sent. Constipation 60655919 K5 9.00 on Colace 100mg dailyMiral ax 17 gm LOE01ev Milk of Magneium PRN daily04/14 and 04/16 denies constipati on Type 2 surya betes mellitus 56305201 E11.21 on Jardiance 10mg (empaglifl ozin) PO dailyon Lispro SSI starting at glucose 151, call if greater than 3512/7 recent glucose levels reviewed, A1C ordered for 04/22 Benign pro static hyperplasia with outflow obstruction 050136860 N40.1 sees urologist - as noted aboveF/U visit with Dr.Paul Najera's IT APPLICATIONS ANALYST Radha on 11/21/23tak es Proscar (Finasteri de) 5 mg nightlyOn Tamsulosin (Flomax) 0.4 mg every evening, Vit C 500mg BID with his Methenamin e(Hiprex) 1 gm BID. Allergic rhinitis 759505 04 J30.9 on Albuterol PRNon Flonase 1 spray daily PRN Cough 91272953 R05.9 not sure if cough related to Allergies or CHF2/5 no cough heard today during examon Albuterol Inhaler PRNon Guifenesin 20mg/ml syrup, 10ml TID PRN2/7 no cough today, no complaints or SOB Osteoarthritis 918788795 M19.90 bilateral kneesmenth ol 4% gel BID PRN to both knees Chronic hyponatremia 503 52425 E87.1 on sodium chloride 1 gm tab BID04/22 checking CMP Insomnia 376472177 G47.0 0 discussed the importance of good sleep hygiene, including: * ensuring adequate exposure to natural light* keeping a consistent sleep schedule* limiting daytime naps to 30 minutes* avoiding stimulants such as caffeine close to bedtime* working hard in therapy/ex ercising to promote good quality sleep* steering clear of food right before sleep that can be disruptive * limit exposure to bright light in the evenings* turn off electronic devices at least 30 minutes before bedtimeon Trazadone 25 mg tab nightly [id number] MAXIMO SCHNEIDER, IT APPLICATIONS ANALYST [facility] [place] ne: [address] [place] [address] 04/18/2023 15:41:01 04/29/2023 12:16:41 Essential hypertension 14942179 I10 Metoprolol tartrate 25 mg immediate release - stopped at last hospital visit 42/5 hold parameter on Metoprolol , hold if SBP <100 .Fall in 2023 - ordered orthostati c VS x 1 check/ & 04/16 VS reviewed/s table. Asthenia 88031600 R53.1 weakness and incontinen ce - need for therapy.pa tient using wheelchair and sit/stand assist for transfers, non ambulatory recent hospitaliz ation and further worsening of weakness04/14 ordered PT/OT per patient and his 's request Infection caused by extended spectrum beta-lactamase producing Escherichia coli 270373904 Z16.12 recent hospitaliz ation for ESBL UTIthree admissions in March 2023 due to recurrent UTI06/2021 + UTI with hydronephr osis09/11/19 22 + UTI 3 >100,000 E.Coli ESBL confirmed, not sensitive to any PO, required IV antibiotic 03/27/23 >100,000 E.coli ESBL confirmed, not sensitive to any PO, required IV antibiotic s2 no s/s of UTI today Open wound of right lower leg 0518175487 9706362 S81.801D two dime sized wounds on frost of right lower leg.patien t and said it is from hitting the sit to stand during transfers. on 02/21/23 - [facility] for care of these wounds and for getting a skin biopsy of the RLE.Wound Ulcer described as RLE 100% hypergranu lation 1x0.8 cm with scant exudate, sero-sangu ineous. Mechanical Debridemen t completed with NS and 4x4's.Curr ent Tx: Every 3 days and PRN: Clean with wound cleanser or NS, apply Xeroform and wrap with Kerlix.Andres lux consulted and following. Specialty Mattress in use.compli cated healing due to DM II with neuropathy .past Arterial Dopplers showed: mild to moderate PAD.On Fall precaution s.On Tylenol 650 mg Q 4 hours PRN for pain2/[address] , RLE ulcer with scab in place, no redness.ne ed to F/U and get biopsy done. Peripheral neuropathy due to type 2 diabetes mellitus 9125934400 107 E11.42 complicate d healing and therapyusi ng wheelchair consistent ly, not ambulating using sit to stand for all transfers recent glucose levels reviewed, A1C ordered for 04/22 Atrial fibrillation 4943 6004 I48.91 trend heart rateson Eliquis 5 mg BID, 81 mg ASA daily, Metoprolol XL 25 mg ext release tab daily.sees Cardiologi st at [facility] on 07/18/22 and possibly on 01/23/23, Dr. Gavino Dewey .persisten t Afibchecksavannah d CBC, Lipid panel in January 2023.check PT/INR04/16 and 04/18 Heart sounds rate and rhythm regular, VS reviewed, stable. Urinary incontinence 165 063153 R32 chronic urinary incontinen ceApril 2021 - admitted for AMS due to UTIretenti on was >1 L with hydronephr osis present, ended up with Tom for 2 months, removed in August 2021, incontinen ce of urine since.on Flomax 2021, Hiprex started with Vit C.sees Urologist Dr. Landon Najera at [facility] , last visit 11/19/22 for UTI, LUTS, and Prostate Cancer.On Tamsulosin (Flomax) 0.4 mg every evening, Vit C 500mg BID with his Methenamin e(Hiprex) 1 gm BID.F/U visit with Urology on 11/21/23 with Radha Rooney DNP at [facility] surgery in [place], [place] . 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, was [address] on [address] scan.2012 PSA 0.61/ PSA 0.96 Lower urin yrn tract symptoms due to benign prostatic hypertrophy 1176779504 9101 N40.1 see plan above for urinary retention and UTIs Dementia 99383442 F03.90 on Lexapro 20mg daily04/16 cooperativ e, participat ing in activities , following commands, pleasant Parkinson's disease 4904 9000 G20.A1 on Buspar 5 mg BID - 04/18trial weanto 2.5mg Buspar BID.on Depakote sprinkle/D ivalproex 125 mg BID - now off Depakotene ed to check Depakote level on labs.04/16 cooperativ e, participat ing in activities , following commands, pleasant Permanent cardiac pacemaker [id number] 66389 Z95.0 06/24/23 Cardiac device check at 1:15pm with [facility] in [facility] at that time as well.04/16 VS reviewed, HR stable, regular Congestive heart failure 82562247 I50.9 Albuterol inhaler 2 puffs Q 4 hours PRN for wheezingon Lasix 40 mg Dailyon 20 meq KCL dailyon Entresto (sacubitnl -valsartan 24-26 mg tab) 1 tab BIDon Spironolac tone 25 mg tablet daily04/16 no wheezing, no crackles, no edema to BLEon daily weights Vitamin D deficiency 347 80155 E55.9 On daily Vit D 5,000 unitscheck ing level on labs 04/22 Chronic ur inary tract infection 588112492 N39.0 follow with Urologist - see aboveCipro 500mg daily BID completed now04/14 or 04/15 UA Flex collected and sent. Constipation 26433388 K5 9.00 on Colace 100mg dailyMiral ax 17 gm FTJ30rx Milk of Magneium PRN daily - discontinu ed, not using, polypharma cy04/14 and 04/16 denies constipati on Type 2 surya betes mellitus 50139476 E11.21 on Jardiance 10mg (empaglifl ozin) PO dailyon Lispro SSI starting at glucose 151, call if greater than 3512/7 recent glucose levels reviewed, A1C ordered for 04/22 Benign pro static hyperplasia with outflow obstruction 476666324 N40.1 sees urologist - as noted aboveF/U visit with Dr.Paul Najera's IT APPLICATIONS ANALYST Radha on 11/21/23tak es Proscar (Finasteri de) 5 mg nightlyOn Tamsulosin (Flomax) 0.4 mg every evening, Vit C 500mg BID with his Hiprex.meek l try to get liquid Vit C as patient has trouble getting down large vit C tabs.Methe namine(Hip pamela) 1 gm BID - per Urology orders. Allergic rhinitis 940462 04 J30.9 on Albuterol PRNon Flonase 1 spray daily PRN - discontinu ed, not using, polypharma cy Cough 75457586 R05.9 not sure if cough related to Allergies or CHF2/5 no cough heard today during examon Albuterol Inhaler PRNon Guifenesin 20mg/ml syrup, 10ml TID PRN - discontinu ed, not using, polypharma cy04/16 no cough today, no complaints or SOB Osteoarthritis 884086459 M19.90 bilateral kneesmenth ol 4% gel BID PRN to both knees - discontinu ed, not using, polypharma cy Chronic hyponatremia 503 38053 E87.1 on sodium chloride 1 gm tab BID04/22 checking CMP Insomnia 626720848 G47.0 0 discussed the importance of good sleep hygiene, including: * ensuring adequate exposure to natural light* keeping a consistent sleep schedule* limiting daytime naps to 30 minutes* avoiding stimulants such as caffeine close to bedtime* working hard in therapy/ex ercising to promote good quality sleep* steering clear of food right before sleep that can be disruptive * limit exposure to bright light in the evenings* turn off electronic devices at least 30 minutes before bedtimeon Trazadone 25 mg tab nightly Gastroesop hageal reflux disease without esophagitis 809470278 K21.9 protonix 40 mg qday - [facility]act ic for stress ulcers due to lots of meds and stress of hospitaliz ation/nichols sitioning. would Discontinu e on 05/09/23 or before if patient continues to improve. [id number] MAXIMO SCHNEIDER NP [facility] [place] ne: [address] [place] [address] 04/28/2023 11:13:28 05/14/2023 02:15:01 Essential hypertension 75168067 I10 Metoprolol tartrate 25 mg immediate release - stopped at last hospital visit 42 hold parameter on Metoprolol , hold if SBP <100 .Fall in 2023 - ordered orthostati c VS x 1 check2/ & 04/16 VS reviewed/s table. Asthenia 08629136 R53.1 weakness and incontinen ce - need for therapy.pa tient using wheelchair and sit/stand assist for transfers, non ambulatory recent hospitaliz ation and further worsening of weakness04/14 ordered PT/OT per patient and his 's request Infection caused by extended spectrum beta-lactamase producing Escherichia coli 679429174 Z16.12 recent hospitaliz ation for ESBL UTIthree admissions in March 2023 due to recurrent UTI06/2021 + UTI with hydronephr osis09/11/19 22 + UTI 3 >100,000 E.Coli ESBL confirmed, not sensitive to any PO, required IV antibiotic 03/27/23 >100,000 E.coli ESBL confirmed, not sensitive to any PO, required IV antibiotic no s/s of UTI today Urine culture results showing ESBL E.Coli >100,000 that was only sensitive to 4 IV antibiotic s.04/26 pt sent to ER for IV antibiotic s due to 04/22 cx results. [facility] sent him back to [facility] with Doxy, no further workup done.04/27 IT APPLICATIONS ANALYST called [facility], spoke w/ED Dr. Montgomery who informed me that last ESBL cx at hospital were sensitive to Doxy. Dr. Montgomery also agreed pt. may need CT scan, ID and Urology consult, and f/u on the culture they collected in the ED on 04/26. Will call the hospital for those UrineCultu re results. no flank pain, no s/s of UTI or urosepsis, A&O x 3, denies dysuria or hematuria, eating and drinking well. CT abd/pelvis scheduled. Open wound of right lower leg [id number] 2647930 S81.801D two dime sized wounds on frost of right lower leg.patien t and said it is from hitting the sit to stand during transfers. on 02/21/23 - [facility] saw [facility] for care of these wounds and for getting a skin biopsy of the RLE.Wound Ulcer described as RLE 100% hypergranu lation 1x0.8 cm with scant exudate, sero-sangu ineous. Mechanical Debridemen t completed with NS and 4x4's.Curr ent Tx: Every 3 days and PRN: Clean with wound cleanser or NS, apply Xeroform and wrap with Kerlix.Andres lux consulted and following. Specialty Mattress in use.compli cated healing due to DM II with neuropathy .past Arterial Dopplers showed: mild to moderate PAD.On Fall precaution s.On Tylenol 650 mg Q 4 hours PRN for pain2/[address] , RLE ulcer with scab in place, no redness.ne ed to F/U and get biopsy done. Peripheral neuropathy due to type 2 diabetes mellitus 3577378985 107 E11.42 complicate d healing and therapyusi ng wheelchair consistent ly, not ambulating using sit to stand for all transfers2 recent glucose levels reviewed, A1C ordered for 04/22 Atrial fibrillation 4943 6004 I48.91 trend heart rateson Eliquis 5 mg BID, 81 mg ASA daily, Metoprolol XL 25 mg ext release tab daily.sees Cardiologi st at [facility] on 07/18/22 and possibly on 01/23/23, Dr. Gavino Dewey .persisten t Oskar d CBC, Lipid panel in January 2023.check PT/INR/7 and 04/18 Heart sounds rate and rhythm regular, VS reviewed, stable. Urinary incontinence 165 967020 R32 chronic urinary incontinen ceApril 2021 - admitted for AMS due to UTIretenti on was >1 L with hydronephr osis present, ended up with Tom for 2 months, removed in August 2021, incontinen ce of urine since.on Flomax 2021, Hiprex started with Vit C.sees Urologist Dr. Landon Najera at [facility] , last visit 11/19/22 for UTI, LUTS, and Prostate Cancer.On Tamsulosin (Flomax) 0.4 mg every evening, Vit C 500mg BID with his Methenamin e(Hiprex) [address] abd/pelvis scheduled. F/U visit with Urology on 11/21/23 with Radha Rooney DNP at [facility] surgery in [place], [place] . 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, was [address] scan.2012 PSA 0.61/ PSA 0.96 Lower urin yrn tract symptoms due to benign prostatic hypertrophy 1443825440 9101 N40.1 see plan above for urinary retention and UTIs Dementia 65917578 F03.90 on Lexapro 20mg daily04/16 cooperativ e, participat ing in activities , following commands, pleasant Parkinson's disease 4904 9000 G20.A1 on Buspar 5 mg BID - 04/18trial weanto 2.5mg Buspar BID.on Depakote sprinkle/D ivalproex 125 mg BID - now off Depakotene ed to check Depakote level on labs.04/16 cooperativ e, participat ing in activities , following commands, pleasant Permanent cardiac pacemaker [id number] 65738 Z95.0 06/24/23 Cardiac device check at 1:15pm with [facility] in [facility] Dr. Bev Ramos, Cardiologi , at that time as well.04/16 VS reviewed, HR stable, regular Congestive heart failure 27612952 I50.9 Albuterol inhaler 2 puffs Q 4 hours PRN for wheezingon Lasix 40 mg Dailyon 20 meq KCL dailyon Entresto (sacubitnl -valsartan 24-26 mg tab) 1 tab BIDon Spironolac tone 25 mg tablet daily04/16 no wheezing, no crackles, no edema to BLEon daily weights Vitamin D deficiency 347 22056 E55.9 On daily Vit D 5,000 unitscheck ing level on labs 04/22 Chronic ur inary tract infection 052795893 N39.0 follow with Urologist - see aboveCipro 500mg daily BID completed now04/14 or 04/15 UA Flex collected and sent. Constipation 96243742 K5 9.00 on Colace 100mg dailyMiral ax 17 gm HEQ65wj Milk of Magneium PRN daily - discontinu ed, not using, polypharma cy04/14 and 04/16 denies constipati on Type 2 surya betes mellitus 06323568 E11.21 on Jardiance 10mg (empaglifl ozin) PO dailyon Lispro SSI starting at glucose 151, call if greater than 3512/7 recent glucose levels reviewed, A1C ordered for 04/22 Benign pro static hyperplasia with outflow obstruction 586658432 N40.1 sees urologist - as noted aboveF/U visit with Dr.Paul Najera's IT APPLICATIONS ANALYST Radha on 11/21/23tak es Proscar (Finasteri de) 5 mg nightlyOn Tamsulosin (Flomax) 0.4 mg every evening, Vit C 500mg BID with his Hiprex.meek l try to get liquid Vit C as patient has trouble getting down large vit C tabs.Methe namine(Hip pamela) 1 gm BID - per Urology orders.05/08 10/31 CT abd/pelvis scheduled. Allergic rhinitis 071762 04 J30.9 on Albuterol PRNon Flonase 1 spray daily PRN - discontinu ed, not using, polypharma cy Cough 28942494 R05.9 not sure if cough related to Allergies or CHF2/5 no cough heard today during examon Albuterol Inhaler PRNon Guifenesin 20mg/ml syrup, 10ml TID PRN - discontinu ed, not using, polypharma cy04/16 no cough today, no complaints or SOB04/28/23 resolved. Osteoarthritis 050028806 M19.90 bilateral kneesmenth ol 4% gel BID PRN to both knees - discontinu ed, not using, polypharma cy Chronic hyponatremia 503 87236 E87.1 on sodium chloride 1 gm tab BID04/22 checking CMP Insomnia 559369615 G47.0 0 discussed the importance of good sleep hygiene, including: * ensuring adequate exposure to natural light* keeping a consistent sleep schedule* limiting daytime naps to 30 minutes* avoiding stimulants such as caffeine close to bedtime* working hard in therapy/ex ercising to promote good quality sleep* steering clear of food right before sleep that can be disruptive * limit exposure to bright light in the evenings* turn off electronic devices at least 30 minutes before bedtimeon Trazadone 25 mg tab nightly Gastroesop hageal reflux disease without esophagitis 214972541 K21.9 protonix 40 mg qday - started [facility] as prophylact ic for stress ulcers due to lots of meds and stress of hospitaliz ation/nichols sitioning. would Discontinu e on 05/09/23 or before if patient continues to improve. [id number] JOEL ANGELES, OMERP-C [facility] [place] ne: [address] [place] [address] 05/19/2023 13:53:59 05/19/2023 14:39:19 Adult health examination [id number] Z00.01 Routine labs ordered and reviewed, continue supportive care on long-term care unit Congestive heart failure 43351005 I50.9 no lower extremity edema on exam, recent increase in Lasix dose, stable today, continue b.i.d. Lasix 40 mg and Entresto, follow-up with cardiology as scheduled, recheck renal function Type 2 surya betes mellitus 12974093 Z79.4 recent A1c 8.0% not at goal, recent blood sugars reviewed and 140-160, will hold on adding basal dosing for now to avoid hypoglycem ia, continue Jardiance with mealtime sliding scale, repeat A1c in 3 months Major depr essive disorder 066487583 F32.9 mood and affect appropriat e on exam, continue Lexapro, Seroquel daily and buspirone and trazodone HS; consider GDR due to age and frailty History of malignant neoplasm of prostate 551097080 Z85.46 stable, denies symptoms, repeat PSA, follow-up urology Vitamin D deficiency 347 70787 E55.9 continue daily supplement , repeat vitamin-D level with routine labs History of cerebrovascular accident 040630070 Z86.73 functional impairment on exam, continue supportive care, daily aspirin, check lipid panel, maintain glycemic and BP control Essential hypertension 32744187 I10 continue metoprolol for BP goal less than 150 over less than 90 Gastroesop hageal reflux disease without esophagitis 826556824 K21.9 well controlled on PPI, continue Hyponatremia 85933476 E8 7.1 sodium 140 on recent labs, continue to monitor [id number] SOMMER MARTIN [facility] [place] ne: [address] [place] [address] 05/27/2023 21:55:06 06/06/2023 09:26:05 Suprapubic pain 402427808 R10.[address] reviewed, noted R hydronephr osisis with non obstructin g stone, no bladder scan available in facility, will have staff check post void residual via straight cath, urology f/u scheduled, does not feel he needs pain medication , will recheck UA and culture, continue finasterid e and flomax History of malignant neoplasm of prostate 687276292 Z85.46 follows with MD najera, stable of recent, continue to monitor output, notify provider of straight cath results post void, continue flomax and finasterid e Benign pro static hyperplasia without outflow obstruction 013533231 N40.0 continue flomax and finasterid e, monitor output and post void residual with urology f/u as scheduled Type 2 surya betes mellitus 89094551 Z79.4 stable on jardiance and mealtime SSI, most recent A1c 8.0% not at goal, recent blood sugars reviewed, no changes in regimen today [id number] SOMMER MARTIN [facility] [place] ne: The [address] [place] [address] 06/13/2023 12:31:12 06/29/2023 12:28:30 Paroxysmal atrial fibrillation 743185064 I48.0 rate controlled on metoprolol 25mg ER, will resume eliquis today as benefits outweight risk; will need held prior to urology procedure, this has been discussed with and patient, continue to follow with cardiology as scheduled Benign pro static hyperplasia 511938349 N40.1 stable on flomax and finasterid e with frequent UTIs, follows with urology Chronic di astolic heart failure 571943769 I50.32 known NICM with reduced EF, tolerating entresto and jardiance, continue spirinolac tone and lasix, monitor renal function, continue weekly weights and low salt diet, s/p AICD with risk for ventricula r arrhythmia Type 2 surya betes mellitus 07676537 Z79.4 stable on jardiance and mealtime SSI, most recent A1c 8.0% not at goal, recent blood sugars reviewed and stable, repeat HA1c 3mos from previous Calculus o f kidney and ureter 770874702 N20.2 f/u scheduled with MD Najera, recent CT with hydronephr osis, 9mm non obstructin g stone on R, straight cath post void with minimal urinary retention, continue to monitor output pending definitive stone treatment, eliquis will need held for this, continue flomax and finasterid e [id number] Ajay Agrawal MD [facility] ne: [address] [place] [address] 06/20/2023 11:48:55 06/29/2023 12:30:00 Dysphagia 99064549 R13.10 long-stand ing history of dysphagia patient was seen by [facility] Otolaryngo logy in June 2014 and Gastroente rology in December 2014 for dysphagia and an abnormal barium esophagram showing esophageal dysmotilit y with delayed esophageal emptying -- EGD was recommende d but it is unclear if he ever went through with the procedure Parkinson' s disease also on the differenti al speech therapy evaluation revealed aspiration by report and the patient was recommende d for minced and moist diet and a barium swallow patient and his have adamantly refused to downgrade his diet despite understand ing the risks of aspiration , infection, respirator y distress, and Fall R29.6 several falls non-injury falls recently, including this week poor safety awareness no apparent injuries on examinatio n neurologic checks per facility protocol patient currently on cholecalci ferol 5000 units twice a day vitamin D level 71 on 04-23-2023 decrease cholecalci ferol to 5000 units once a week repeat vitamin D3 level in the Fall therapy referral Diabetes mellitus 875711 09 E13.9 fingerstic k blood glucose log reviewed -- blood glucose readings are running on the high side but not extremely high hemoglobin A1c:8.0% on 04-23-2023 patient recently started on low-dose Lantus increase Jardiance to 25 mg once daily discontinu e insulin sliding scale check FSBS TID diabetic diet Dementia w ith behavioral disturbance 9847096324 103 F03.918 Marissa says that the patient has had cognitive impairment for >10 years but has not had a steep decline in his mental status history of possible normal pressure hydrocepha vee? I recommende d that the patient's and schedule neurology follow up for further evaluation Atrial fibrillation 3837 2166 I48.91 it was recently discovered that the patient's apixaban was discontinu ed by his primary prior primary care physician for unclear reasons apixaban recently restarted trend heart rates check CBC follow up with electrophy siology as directed Congestive heart failure 20418468 I50.9 echocardio gram on April 01, 2022 was remarkable for moderately reduced left ventricula r systolic function with an ejection fraction of 30-35%, moderate to severe global hypokinesi s, borderline reduced right ventricula r systolic function, aortic stenosis, and mild-to-mo derate mitral and tricuspid regurgitat ion. sodium chloride tablets not helping CHF decrease sodium chloride tablets to 500 mg twice daily, consider discontinu ing if sodium remains stable check weights frequently as per facility protocol cardiac diet check BMP check BNP Hypertensive disorder 38 418608 I10 trend blood pressures Recurrent urinary tract infection 908330349 N39.0 sees urology for BPH, recurrent urinary tract infections , and prostate cancer follow up with urology as directed Benign pro static hyperplasia with outflow obstruction 312587519 N40.1 sees urology for BPH, recurrent urinary tract infections , and prostate cancer follow up with urology as directed Unable to walk 305385778 R26.2 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 Marissa says that the patient stopped walking a few years ago after he contracted a severe COVID infection early on in the pandemic and has not walked since etiology unclear I recommende d that the patient's and schedule neurology follow up for further evaluation therapy referral Complete atrioventricular block 73406526 I44.2 history of complete heart block status post FOUNTAIN DISPENSER-D placement Peripheral angiopathy due to diabetes mellitus 945330810 E11.51 details unclear risks of aspirin therapy in addition to apixaban likely greater than benefit in this patient who falls frequently I asked patient's to ask his cardiologi st next week if he can discontinu e aspirin History of cerebrovascular accident 293319106 Z86.73 details unclear follow up with neurology as directed History of malignant neoplasm of prostate 028059600 Z85.46 sees urology for BPH, recurrent urinary tract infections , and prostate cancer follow up with urology as directed History of SARS-CoV-2 29 37124509 95550033 Z86.16 Marissa says that the patient stopped walking a few years ago after he contracted a severe COVID infection early on in the pandemic and has not walked since Chronic ob structive pulmonary disease 76279423 J44.9 details unclear patient never smoked by report Osteoarthritis 730499773 M19.90 Anxiety 93301110 F41.9 Major depr essive disorder 689717389 F32.9 Dry eyes 752418864 H04.1 23 Constipation 16800631 K5 9.00 discontinu e Milk of Magnesia start polyethyle ne glycol 17 g once daily as needed At [facility] risk of polypharmacy 451699163 Z91.89 decrease sodium chloride tablets to 500 mg twice daily, consider discontinu ing if sodium remains stable discontinu e insulin sliding scale decrease cholecalci ferol to 5000 units once a week discontinu e vitamin C discontinu e Milk of Magnesia consider discontinu ing medication s below Insomnia 242976764 G47.0 0 Parkinson's disease 4904 9000 G20.A1 details unclear does not seem to have typical signs and symptoms of Parkinson' s on examinatio n I recommende d that the patient's and schedule neurology follow up for further evaluation Normal pre ssure hydrocephalus 89432595 G91.2 concern for possible normal pressure hydrocepha vee for >10 years -- patient previously underwent a large volume spinal tap without lasting improvemen t patient was seen by neurosurge ry in April 2014 and possible shunt placement was discussed but not recommende d at the time patient was scheduled for follow up in about 4 months but it is unclear if he ever saw neurosurge ry again I recommende d that the patient's and schedule neurology follow up for further evaluation Neuropathy 257150389 G62 .9 details unclear follow up with neurology as directed Obstructiv e sleep apnea syndrome 70730681 G47.33 History of pulmonary embolus 867704189 Z86.711 details unclear continue apixaban Hyperlipidemia 01104764 E78.5 not currently on treatment check lipid profile with next blood draw [id number] Ajay Agrawal MD [facility] [place] ne: [address] [place] [address] 07/07/2023 09:38:05 07/12/2023 22:47:58 Normal pressure hydrocephalus 47868547 G91.2 concern for possible normal pressure hydrocepha vee for >10 years -- patient previously underwent a large volume spinal tap without lasting improvemen t patient was seen by neurosurge edwina in April 2014 and possible shunt placement was discussed but not recommende d at the time patient was scheduled for follow up in about 4 months but it is unclear if he ever saw neurosurge ry again I recommende d that the patient's Marissa schedule neurology follow up for further evaluation Marissa recently made an appointmen t with neurologis t Dr. Blayne Hunter at [facility] I will fax Dr. Hunter my recent Progress Notes to assist with his evaluation Parkinson's disease 7683 6689 G20.A1 details unclear does not seem to have typical signs and symptoms of Parkinson' s on examinatio n patient is currently not on any medication s for Parkinson' s I recommende d that the patient's Marissa schedule neurology follow up for further evaluation Marissa recently made an appointmen t with neurologrosales t Dr. Blayne Hunter at [facility] I will fax Dr. Hunter my recent Progress Notes to assist with his evaluation Hypotensive episode 6776 3001 I95.9 nursing staff report that his blood pressures have been running soft in the mornings patient has also had poor oral intake recently decrease furosemide 20 mg once daily decrease spironolac tone to 12.5 mg once daily encourage fluids Diabetes mellitus 416305 09 E13.9 insulin sliding scale recently discontinu ed and Jardiance increased to 25 mg once daily patient currently on insulin glargine 8 units once daily fingerstic k blood glucose log reviewed -- blood glucose readings are running on the high increase insulin glargine to 15 units once daily hemoglobin A1c:8.0% on 04-23-2023 check FSBS TID diabetic diet I recommende d repeating a hemoglobin A1c after the patient is on a stable diabetes regimen for 3 months Nausea and vomiting 3 1999 R11.2 etiology unclear differenti al includes aspiration secondary to dysphagia versus infection versus dehydratio n patient appears non-toxic and has no complaints , abdominal exam re-assurin g check CBC check CMP check CRP check amylase check lipase check CXR check KUB check urinalysis with reflex check SARS-CoV-2 rapid antigen test Congestive heart failure 26527801 I50.9 echocardio gram on April 01, 2022 was remarkable for moderately reduced left ventricula r systolic function with an ejection fraction of 30-35%, moderate to severe global hypokinesi s, borderline reduced right ventricula r systolic function, aortic stenosis, and mild-to-mo derate mitral and tricuspid regurgitat ion. patient appears somewhat dry at present decrease furosemide 20 mg once daily decrease spironolac tone to 12.5 mg once daily discontinu e sodium chloride tablets check weights frequently as per facility protocol cardiac diet check BNP At [facility] risk of polypharmacy 091161528 Z91.89 discontinu e sodium chloride tablets insulin sliding scale discontinu ed cholecalci ferol decreased to 5000 units once a week vitamin C discontinu ed Milk of Magnesia discontinu ed Candidiasi s of urogenital site 075132806 B37.49 nursing reports that the patient is constantly urinating and his perineal area is always wet extensive excoriated rash in his perineal area noted start nystatin ointment and powder twice daily Hyperkalemia 65853121 E8 7.5 potassium 5.0 likely secondary to a combinatio n of chronic kidney disease and medication effect decrease spironolac tone to 12.5 mg once daily encourage fluids Health Concerns Section Related Observation LastModified by Organization Detai ls LastModified Time None Recorded Concern Status LastModified by Organization Details LastModified Time None Recorded Advance Directives Directive Y: Payers Encounter Date Sequence Insurance Name Policy Number Policy Lopez Covered Member ID Lopez Member ID Guarantor Name 05/19/2023 2 [place]) [id number] Maida S Zipfel [id number] Maida Zipfel 05/19/2023 1 [place] Maida S Zipfel [id number] Maida Zipfel 05/27/2023 2 [place] [id number] Maida S Zipfel [id number] Maida Zipfel 05/27/2023 1 [place] Maida S Zipfel [id number] Maida Zipfel 06/13/2023 2 [place] [id number] Maida Delacruz Zipfel [id number] Maida Zipfel 06/13/2023 1 [place] Maida Delacruz Zipfel [id number] Maida Zipfel 06/20/2023 2 [place] [id number] Maida Delacruz Zipfel [id number] Maida Zipfel 06/20/2023 1 [place] Maida Delacruz Zipfel [id number] Maida Zipfel 07/07/2023 2 [place] [id number] Maida Delacruz Zipfel [id number] Maida Zipfel 07/07/2023 1 [place] Maida Delacruz Zipfel [id number] Maida Zipfel Notes Date Note Type Note Provider Name and Address Organization Details Recorded Time 05/19/2023 text/html Medicare Annual Wellness VisitReported bypatient.Diet and Nutrition:healthy diet Fracture Risk:no history of fractures Depression Risk:never feels sad, empty, or tearful Orientation:no disorientation to time; no disorientation to date; no disorientation to place Concentration and Memory:no decreased concentrating ability;memory lapses or loss Hearing:getting progressively worse Vision:worsening Instrumental Activities of Daily Living:unable to manage medications without assistance;unable to to prepare meals without assistance Falls Risk Assessment:no fall since last visit Home Safety:reviewed sun protection; has hand bars in the bathroom/shower; good lighting in the home patient seen for Medicare annual wellness visit today, he is sitting in wheelchair and common area on exam, awake and alert, denies complaints. Resides on long-term care unit due to functional impairments, CHF. Vital signs and weight reviewed and stable, routine labs ordered with recent results reviewed. No new concerns or issues per nursing staff. Patient able to answer screening questions appropriately and participate in exam.check CBCcheck CMPcheck fasting lipid profilecheck hemoglobin Z4Mdpdix TSHcheck vitamin Dcheck vitamin A35yecva folate SHEBA MARTIN-C [address] [place], [address], [facility] 05/19/2023 14:27:36 05/27/2023 text/html pt seen today fo r f/u on suprapubic pain, he is resting in bed on exam, awake and alert, reports lower abd pressure with urination, had outpatient abd/pelvis CT ordered by urology due to h/o recurrent UTIs, BPH, recent hospitalizations for UTI complications, completed PO doxycycline in april most recently for esbl Ecoli. Imaging shows moderate R hydronephrosis with no concern for obstructing stones. He has not followed up with urology since imaging. Denies fevers or chills, does get up at night to void. SOMMER MARTIN [address] [facility], [place], [address], [employer] [facility] 06/02/2023 21:23:45 06/13/2023 text/html Pt seen for foll ow up visit today , he is sitting in WC in common area on exam, awake and alert. This is an 83 y/o gentleman with known NICM, hypertension, atrial fibrillation, BPH and recurrent UTIs . He is followed by Dr Mcclain cardiology and Dr ramos s/p PPM with AICD. he was recently started on enresto and jardiance with severely reduced EF to 35%; he has tolerated meds well and renal function stable despite recent 9mm ureteral stone, plans for definitive stone tx per MD Najera.He did have hospitalizations x 2 this year for complicated UTI. Pt is seen today at request of who noticed on pt med list from facility that his eliquis was stopped on 04/04; this was prior to Dr Agrawal taking over primary care of facility; facility chart and Epic notes reviewed in depth with no clear reason for discontinuation of eliquis in pt with known Afib and h/o CVA.Pt denies complaints today, there has been no reported hematuria, fevers or other concerns per nursing staff. 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 The patient has a long-standing history of dementia. He was followed by [facility] neuromuscular clinic for gait instability, cognitive impairment, and peripheral neuropathy as far back as [address] Cathie Thrasher. There was concern for possible normal pressure hydrocephalus and he underwent a large volume spinal tap without lasting improvement. He was seen by neurosurgery in April 2014 and possible shunt placement was discussed but not recommended at the time. He was scheduled for follow up in about 4 months but it is unclear if he ever saw neurosurgery again. He was seen by [facility] Otolaryngology in June 2014 and Gastroenterology in December 2014 for dysphagia and an abnormal barium esophagram showing esophageal dysmotility with delayed esophageal emptying. An EGD was recommended but it is unclear if he ever went through with the procedure. The patient was seen at the [facility] by Dr. Cathi Freeman as recently as November 2020 for vascular dementia with behavioral disturbance, Parkinson's disease, and dysphagia. The patient has had multiple recent hospitalizations at [facility]. He was hospitalized from February 23-2022 for an ESBL E. coli UTI on a urine culture at [facility] and treated with intravenous meropenem even though he was reportedly asymptomatic, hypokalemia, and hypocalcemia. He was rehospitalized from March 05 to March 10 for altered mental status and hematuria, diagnosed with acute cystitis and RSV infection, and again treated with intravenous antibiotics. He was seen in the emergency department on March 19 after a fall. A head CT on March 19 showed no acute intracranial hemorrhage, evidence of chronic microvascular ischemic disease, and mild prominence of the ventricles which can be seen in the setting of normal pressure hydrocephalus. He was diagnosed with an urinary tract infection during this emergency department visit and treated with fosfomycin. He was re-hospitalized from April 03-2023 for an ESBL E. coli UTI on a urine culture at [facility] treated with intravenous meropenem and fosfomycin even though he was reportedly asymptomatic. He was again sent to the emergency department on April 26 for an ESBL E. coli UTI on a urine culture at [facility] and discharged on doxycycline. Of note, an echocardiogram on April 01, 2022 was remarkable for moderately reduced left ventricular systolic function with an ejection fraction of 30-35%, moderate to severe global hypokinesis, borderline reduced right ventricular systolic function, aortic stenosis, and [id number] mitral and tricuspid regurgitation. The patient is pleasantly confused and has no complaints today. I spoke at length with the patient's and power of decontamination worker Marissa, who says that the patient has had cognitive impairment for >10 years but has not had a steep decline in his mental status. From a physical perspective, Marissa says that the patient stopped walking a few years ago after he contracted a severe COVID infection early on in the pandemic and has not walked since. Nursing staff report that over the past few weeks the patient has had 2 episodes of severe choking during meals. Speech therapy evaluation revealed aspiration by report and the patient was recommended for minced and moist diet and a barium swallow. The patient and his have adamantly refused to downgrade his diet despite understanding the risks of aspiration, infection, respiratory distress, and . The patient has also had several falls non-injury falls and episodes of disruptive behaviors recently. Lastly, it was recently discovered that the patient's apixaban was discontinued by his primary prior primary care physician for unclear reasons. Laboratory data on April 22 was remarkable for a white count 7.6, hemoglobin 12.9, BNP 162, hemoglobin A1c 8.0%, TSH 4.565, vitamin D 71, valproic acid level <10, magnesium 1.9, BUN 33, [place] [address] [place], [address], [facility] 06/26/2023 18:49:06 07/07/2023 text/html I saw the patien t urgently today because nursing staff notified me of nausea and vomiting yesterday. Per the nurse's note: Resident c/o nausea and was observed spitting up clear emesis. findings reported to Dr. Agrawal. new orders received for zofran 4mg tid x1 day. dr agrawal expressed he would be in facility to see resident on 07/06. marissa present and aware of clinical situation and new orders. I also saw the patient today in follow up of his diabetes and normal pressure hydrocephalus and Parkinson's. His diabetes medication regimen was recently adjusted in an effort to get him off and insulin sliding scale. I interviewed the patient in the presence of his Marissa, who reports that she recently made an appointment with neurologist Dr. Blayne Hunter at [facility]. Marissa had many questions about the patient's care, which I answered. The patient is pleasantly confused and has no complaints today. Nursing staff report that his blood pressures have been running soft in the mornings and that he has had recent poor oral intake. Nursing also reports that the patient is constantly urinating and has an excoriated rash in his perineal area. Marissa is concerned that the patient has an urinary tract infection. Laboratory data on June 30 was remarkable for a white count 7.8, hemoglobin 13.6, BNP 101, lipid profile within normal limits except for HDL 104, sodium 137, potassium 5.0, BUN 26, and creatinine 1.1. Of note, the patient's sodium chloride tablets were decreased to 500 mg twice daily on June 19[place] [address] [place], [address], [facility] [place] - [facility] 07/08/2023 15:45:43
--- OUTSIDE RECORDS SUMMARY | 2024-04-18 12:21 | XMS_ITS | Data Portability ---
Author Organization [facility] SHADYBijan Robison Address [address] [facility] [address] Care Team Providers Care Supervising Law Enforcement Analyst Name Role Phone EILEEN TRIPATHI Primary Care Provider Assessment Encounter Date Assessment Date Assessment LastModified by Organization Details LastModified Time 03/26/2023 03/26/2023 83-year-old gentleman who has a history of nonischemic cardiomyopathy with severely impaired left-ventricular static function action fraction of 30 to 35% has no symptoms of shortness of breath. I will continue to treat him with spironolactone, Entresto, metoprolol and Lasix. I will check a basic metabolic profile in 1 week. I will repeat basic metabolic profile again in 3 months before follow-up. Hypertension, blood pressure is well-controlled. Permanent atrial fibrillation, continue beta-brett along with oral anticoagulation. 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 [email or web address] Not available 03/27/2023 13:42:50 Plan of Treatment Reminders Order Date Submit Date Provider Last Modified By Organization Details Last Modified Time Details Appointments None recorded . Lab BMP, serum or plasma 024 [facility], [address], [address], [place], [address], 4 08:39:05 CMP, serum or plasma 024 [facility]HENA[facility]X [employer] [facility] [employer] [facility], [address], [address], [place], [address], 4 09:33:46 CBC w/ auto diff 024 024 [facility] [employer] [facility], [address], [address], [place], [address], 4 09:33:46 lipid panel, serum 024 024 [facility] [employer] [facility], [address], [address], [place], [address], 4 09:33:45 Referral None recorded . Procedures None recorded . Surgeries None recorded . Imaging None recorded . Medication Orders None recorded . Patient TargetsNo targets recorded. Patient InstructionsNo instructions recorded. Reason for Referral None Reported. Medical Equipment None Reported. Medications Name Sig Start Date Stop Date Status Note LastModified by Organization Details LastModified Time quetiapine 25 mg tablet active Not Available Not Available Not Available furosemide 40 mg tablet active Not Available Not Available Not Available buspirone 5 mg tablet active Not Available Not Available Not Available trazodone 50 mg tablet active Not Available Not Available Not Available ciprofloxacin 500 mg tablet active Not Available Not Availabl e Not Available triamcinolone acetonide 0.1 % topical cream active Not Available Not Availabl e Not Available spironolactone 25 mg tablet active Not Available Not Available Not Available ceftriaxone 1 gram solution for injection active Not Available Not Availabl e Not Available methenamine hippurate 1 gram tablet active Not Available Not Available Not Available potassium chloride ER 20 mEq tablet,extended release(part/cry st) active Not Available Not Available Not Available tamsulosin 0.4 mg capsule active Not Available Not Available N ot Available metoprolol succinate ER 25 mg tablet,extended release 24 hr active Not Available Not Availabl e Not Available albuterol sulfate HFA 90 mcg/actuation aerosol inhaler active Not Available Not Availa ble Not Available ondansetron 4 mg disintegrating tablet active Not Available Not Available Not Available fluticasone propionate 50 mcg/actuation nasal spray,suspension active Not Available Not Avail able Not Available divalproex 125 mg capsule,delayed release sprinkle active Not Available Not Avail able Not Available doxycycline hyclate 100 mg tablet 06/15 completed Not Available Not Available Not Available finasteride 5 mg tablet active Not Available Not Available Not Available tobramycin 0.3 %-dexamethasone 0.1 % eye drops,suspension active Not Available Not Avail able Not Available escitalopram 10 mg tablet active Not Available Not Available No t Available escitalopram 20 mg tablet active Not Available Not Available No t Available metoprolol tartrate 25 mg tablet active Not Available Not Available Not Available spironolactone active Not Available No t Available Not Available ciprofloxacin 06/15 completed Not Available Not Available Not Available Humalog KwikPen (U-100) Insulin 100 unit/mL subcutaneous active Not Available Not Available Not Available BD AutoShield Duo Pen Needle 30 gauge x 05/23 active Not Available Not Avail able Not Available Eliquis 5 mg tablet active Not Available Not Available Not Available Jardiance 10 mg tablet active Not Available Not Available Not Available empagliflozin active Not Available Not Available Not Available Entresto 24 mg-26 mg tablet active Not Available Not Availa ble Not Available sacubitril-valsa rtan active Not Available Not Available Not Available Vitals Date Recorded Body weight Body mass index (BMI) Body height Systolic blood pressure Diastolic blood pressure Provider Name and Address Organization Details Last Updated DateTime 03/26/2023 94532.4 g 26.6 kg/m2 189.23 cm 124 mm[Hg] 84 mm[Hg] Karen Cutler MA [facility] 14:39:23 Social History Question Answer Notes LastModified by Organizat ion Details LastModified Time Tobacco Smoking Status Never Smoker Karen Cutler MA null, [facility] 03/26/2023 14:30:38 What Was The Date Of Your Most Recent Tobacco Screening? 03/26/2023 [email or web address] Information not available 03/26/2023 Sex: Unknown Functional Status None recorded. Mental Status None recorded. Family History Nothing Reported. Medical History No medical history recorded. Past Encounters Encounter ID Performer Location Encounter Start Date Encounter Closed Date Diagnosis/Indication Diagnosis SNOMED-CT Code Diagnosis ICD10 Code Diagnosis Note [id number] Gavino Dewey MD [facility] [place] [facility] [address] [facility] [place] [address] 03/26/2023 14:10:58 04/08/2023 14:41:44 Congestive heart failure 18070848 I50.9 Chronic at rial fibrillation 441315236 I48.20 Permanent cardiac pacemaker 3333367508 82648 Z95.0 Essential hypertension 02091989 I10 Health Concerns Section Related Observation LastModified by Organization Detai ls LastModified Time None Recorded Concern Status LastModified by Organization Details LastModified Time None Recorded Advance Directives Directive None Recorded Payers Encounter Date Sequence Insurance Name Policy Number Policy Lopez Covered Member ID Lopez Member ID Guarantor Name 03/26/2023 1 [place] Maida Sevillafel [id number] Maida Delacruz Zipfel 03/26/2023 1 [place] [id number] Maida Delacruz Zipfel [id number] Maida Sevillafel Notes Date Note Type Note Provider Name and Address Organization Details Recorded Time 03/26/2023 text/html 83-year-old gentleman who has a history of permanent atrial fibrillation, cardiomyopathy ejection fraction 30 to 35% and status post permanent pacemaker placement. He had an echocardiogram in March 2022 at that time ejection fraction was 30 to 35% with moderate to severe global hypokinesis. He also has a history of COVID.Today he denies complaints of chest pain tightness or pressure. He has no shortness of breath. No orthopnea and paroxysmal dyspnea. Gavino Dewey MD Attn: Accounting[address] [place], [address], [facility] [place] 03/27/2023 13:43:44
--- OUTSIDE RECORDS SUMMARY | 2024-04-18 12:21 | XMS_ITS | Encounter Summary ---
Author Organization [facility] Address [address] [place] [address] Phone Care Team Providers Care Production Line Technician Name Role Phone Jonah Cook MD Primary Care Provider [phone] Margarita Jaimes MD Unavailable [phone] Jeevan Gibson MD PhD Unavailable [phone] Olu Reis MD Unavailable [phone] Brant Rodriguez DPM Unavailable + [phone] Cathi Freeman MD Unavailable Cesar Morris MD Primary Care Provider [phone] Serjio Pierre MD Primary Care Provider [phone] Chris Gentile MD Primary Care Provider + [phone] Unknown, Notinfile Primary Care Provider Unavail able Tiana Hilario NP Primary Care Provider [phone] Encounter Details Date Type Department Care Team (Late st Contact Info) Description 04/16/2013 Orders Only [facility] Provider, MD [place] [address] Social History Tobacco Use Types Packs/Day Years Used Date Smoking Tobacco: Never Alcohol Use Standard Drinks/Week Comments Yes 0 (1 standard drink = 0.6 oz pur e alcohol) Sex and Gender Information Value Date Recorded Sex Assigned at Male 05/11/2018 9:16 AM BIODIESEL PLANT OPERATIONS ENGINEER Legal Sex Male 1:34 AM BIODIESEL PLANT OPERATIONS ENGINEER Gender Identity Not on file Sexual Orientation Straight 05/11/2018 9: 16 AM BIODIESEL PLANT OPERATIONS ENGINEER documented as of this encounter Plan of Treatment Not on file documented as of this encounter Procedures Procedure Name Priority Date/Time Associated Diagnosis Comments CARDIOLOGY REPORT 04/16/2013 documented in this encounter Results * CARDIOLOGY REPORT (04/16/2013) Anatomical Region Laterality Modality Other Narrative 04/16/2013 Ordered by an unspecified provider. us Historical Provider [facility] JACOB ARTEAGA Final Result documented in this encounter Visit Diagnoses Not on filedocumented in this encounter Additional Health Concerns Infection Onset Date Last Indicated Resolved Time MDR gram neg/ESBL Comment:Contact 09/10/2021 10/19/2023 RSV, droplet 02/28/2023 02/28/2023 03/14/2023 3:05 AM BIODIESEL PLANT OPERATIONS ENGINEER COVID: Suspected 03/19/2023 03/19/2023 03/19/2023 9:02 AM BIODIESEL PLANT OPERATIONS ENGINEER COVID: Suspected 07/08/2023 07/08/2023 07/08/2023 10:20 PM CDT documented as of this encounter Care Teams Production Line Technician Relationship Specialty Start Date End Date Jonah Cook MD [address] [facility] [address] [place] [address] PCP - General 01/31/10 02/18/22 Cesar Morris MD [address] [place] [address] PCP - General Internal Medicine 02/19/22 04/03/23 Serjio Pierre MD [address] [place] [address] PCP - General Internal Medicine 04/04/23 05/18/23 Chris Gentile MD [address] [place] [address] PCP - General Geriatric Medicine 09/03/23 10/09/23 Unknown, Notinfile PCP - General 10/19/23 01/11/24 Tiana Hilario, CREDIT CONTROL CLERK [address] [place] [address] PCP - General Geriatric Medicine 01/12/24 Margarita Jaimes MD [address] [address] Referring Physician Endocrinology Diabetes & Metabolism 08/30/19 Jeevan Gibson MD PhD [address] [address] Referring Physician Cardiology 02/22/20 Olu Reis MD [address] [address] Referring Physician Cardiology 02/22/20 Brant Rodriguez DPM [address] [address] Referring Physician Podiatry 02/22/20 Cathi Freeman MD [id number] [place] [address] Referring Physician Geriatric Medicine 10/09/20 documented as of this encounter
--- OUTSIDE RECORDS SUMMARY | 2024-04-18 12:21 | XMS_ITS | Encounter Summary ---
Author Organization [facility] Address [address] [place] [address] Phone Care Team Providers Care Certified Alcohol And Drug Counselor Name Role Phone Jonah Cook MD Primary Care Provider [phone] Margarita Jaimes MD Unavailable [phone] Jeevan Gibson MD PhD Unavailable [phone] Olu Reis MD Unavailable +[phone] Brant Rodriguez DPM Unavailable + [phone] Cathi Freeman MD Unavailable Cesar Morris MD Primary Care Provider [phone] Serjio Pierre MD Primary Care Provider [phone] Chris Gentile MD Primary Care Provider + [phone] Unknown, Notinfile Primary Care Provider Unavail able Tiana Hilario NP Primary Care Provider [phone] Encounter Details Date Type Department Care Team (Late st Contact Info) Description 05/24/2013 Orders Only [facility] Provider, MD Preston [facility] [place] [address] Social History Tobacco Use Types Packs/Day Years Used Date Smoking Tobacco: Never Alcohol Use Standard Drinks/Week Comments Yes 0 (1 standard drink = 0.6 oz pur e alcohol) Sex and Gender Information Value Date Recorded Sex Assigned at Male 05/11/2018 9:16 AM CASE FITTER Legal Sex Male 1:34 AM CASE FITTER Gender Identity Not on file Sexual Orientation Straight 05/11/2018 9: 16 AM CASE FITTER documented as of this encounter Plan of Treatment Not on file documented as of this encounter Procedures Procedure Name Priority Date/Time Associated Diagnosis Comments CARDIOLOGY REPORT 05/24/2013 documented in this encounter Results * CARDIOLOGY REPORT (05/24/2013) Anatomical Region Laterality Modality Other Narrative 05/24/2013 Ordered by an unspecified provider. us Historical Provider [facility] ARTEAGA Final Result documented in this encounter Visit Diagnoses Not on filedocumented in this encounter Additional Health Concerns Infection Onset Date Last Indicated Resolved Time MDR gram neg/ESBL Comment:Contact 09/10/2021 10/19/2023 RSV, droplet 02/28/2023 02/28/2023 03/14/2023 3:05 AM CASE FITTER COVID: Suspected 03/19/2023 03/19/2023 03/19/2023 9:02 AM CASE FITTER COVID: Suspected 07/08/2023 07/08/2023 07/08/2023 10:20 PM CDT documented as of this encounter Care Teams Certified Alcohol And Drug Counselor Relationship Specialty Start Date End Date Jonah Cook MD [address] [facility] [address] [place] [address] PCP - General 01/31/10 02/18/22 Cesar Morris MD [address] [place] [address] PCP - General Internal Medicine 02/19/22 04/03/23 Serjio Pierre MD [address] [place] [address] PCP - General Internal Medicine 04/04/23 05/18/23 Chris Gentile MD [address] [facility] [address] [place] [address] PCP - General Geriatric Medicine 09/03/23 10/09/23 Unknown, Notinfile PCP - General 10/19/23 01/11/24 Tiana Hilario, CASINO CASHIER [address] [facility] [address] [place] [address] PCP - General Geriatric Medicine 01/12/24 Margarita Jaimes MD [address] [address] Referring Physician Endocrinology Diabetes & Metabolism 08/30/19 Jeevan Gibson MD PhD [address] [address] Referring Physician Cardiology 02/22/20 Olu Reis MD [address] [address] Referring Physician Cardiology 02/22/20 Brant Rodriguez DPM [address] [address] Referring Physician Podiatry 02/22/20 Cathi Freeman MD [phone] [place] [address] Referring Physician Geriatric Medicine 10/09/20 documented as of this encounter
--- OUTSIDE RECORDS SUMMARY | 2024-04-18 12:21 | XMS_ITS | Encounter Summary ---
Author Organization [facility] Address [address] [place] [address] Phone Care Team Providers Care Hematology Specialist Name Role Phone Jonah Cook MD Primary Care Provider [phone] Margarita Jaimes MD Unavailable [phone] Jeevan Gibson MD PhD Unavailable [phone] Olu Reis MD Unavailable [phone] Brant Rodriguez DPM Unavailable + [phone] Catih Freeman MD Unavailable Cesar Morris MD Primary Care Provider [phone] Serjio Pierre MD Primary Care Provider [phone] Chris Gentile MD Primary Care Provider + [phone] Unknown, Notinfile Primary Care Provider Unavail able Tiana Hilario NP Primary Care Provider [phone] Encounter Details Date Type Department Care Team (Late st Contact Info) Description 10/16/2015 Orders Only [facility] Provider, MD Preston [facility] [place] [address] Social History Tobacco Use Types Packs/Day Years Used Date Smoking Tobacco: Never Alcohol Use Standard Drinks/Week Comments Yes 0 (1 standard drink = 0.6 oz pur e alcohol) Sex and Gender Information Value Date Recorded Sex Assigned at Male 05/11/2018 9:16 AM PLANNING AND ANALYSIS MANAGER Legal Sex Male 1:34 AM PLANNING AND ANALYSIS MANAGER Gender Identity Not on file Sexual Orientation Straight 05/11/2018 9: 16 AM PLANNING AND ANALYSIS MANAGER documented as of this encounter Plan of Treatment Not on file documented as of this encounter Procedures Procedure Name Priority Date/Time Associated Diagnosis Comments CARDIOLOGY REPORT 10/16/2015 documented in this encounter Results * CARDIOLOGY REPORT (10/16/2015) Anatomical Region Laterality Modality Other Narrative 10/16/2015 Ordered by an unspecified provider. us Historical Provider [facility]ACOB ARTEAGA Final Result documented in this encounter Visit Diagnoses Not on filedocumented in this encounter Additional Health Concerns Infection Onset Date Last Indicated Resolved Time MDR gram neg/ESBL Comment:Contact 09/10/2021 10/19/2023 RSV, droplet 02/28/2023 02/28/2023 03/14/2023 3:05 AM PLANNING AND ANALYSIS MANAGER COVID: Suspected 03/19/2023 03/19/2023 03/19/2023 9:02 AM PLANNING AND ANALYSIS MANAGER COVID: Suspected 07/08/2023 07/08/2023 07/08/2023 10:20 PM CDT documented as of this encounter Care Teams Hematology Specialist Relationship Specialty Start Date End Date Jonah Cook MD [address] [facility] [address] [place] [address] PCP - General 01/31/10 02/18/22 Cesar Morris MD [address] [place] [address] PCP - General Internal Medicine 02/19/22 04/03/23 Serjio Pierre MD [address] [place] [address] PCP - General Internal Medicine 04/04/23 05/18/23 Chris Gentile MD [address] [facility] [address] [place] [address] PCP - General Geriatric Medicine 09/03/23 10/09/23 Unknown, Notinfile PCP - General 10/19/23 01/11/24 Tiana Hilario, SPEEDOMETER INSPECTOR [address] [facility] [address] [place] [address] PCP - General Geriatric Medicine 01/12/24 Margarita Jaimes MD [address] [address] Referring Physician Endocrinology Diabetes & Metabolism 08/30/19 Jeevan Gibson MD PhD [address] [address] Referring Physician Cardiology 02/22/20 Olu Reis MD [address] [address] Referring Physician Cardiology 02/22/20 Brant Rodriguez DPM [address] [address] Referring Physician Podiatry 02/22/20 Cathi Freeman MD [phone] [place] [address] Referring Physician Geriatric Medicine 10/09/20 documented as of this encounter
--- OUTSIDE RECORDS SUMMARY | 2024-04-18 12:21 | XMS_ITS | Clinical Summary ---
Author Organization [facility] Address [address] [place] [address] Care Team Providers Care Passenger Service Agent Name Role Phone Jonah Cook MD Primary Care Provider Allergies No known active allergies Medications aspirin EC (ASPIRIN EC) 81 MG tablet Take 81 mg by mouth daily. Active atorvastatin 40 MG tablet Take 40 mg by mouth nightly at bedtime. Active carbidopa-levodopa 25-100 MG disintegrating tablet Take 1 tablet by mouth 3 (three) times daily. Active vitamin D3, cholecalciferol, 5000 UNITS capsule Take 5,000 Units by mouth daily. Active coenzyme Q-10 (CO Q-10) 100 MG capsule Take 200 mg by mouth daily. Active fluticasone propionate 50 MCG/ACT nasal spray 1 spray by Nasal route daily as needed for Rhinitis. Active insulin glargine 100 UNIT/ML injection (VIAL) Inject 36 Units into the skin nightly at bedtime. Active metoprolol tartrate 25 MG tablet Take 25 mg by mouth 2 (two) times daily. Active insulin aspart 100 UNIT/ML injection (VIAL) Inject 15 Units into the skin 3 (three) times daily before meals. 1 unit per every 25 points over 150 with a max daily dose of 110. 10 mL Active Active Problems Problem Noted Date Diagnosed Date Falls 03/07/2021 Diabetes mellitus ([facility]) 07/04/2020 Overview (03/07/2021): Last Assessment & Plan: Continue insulin. Dermatitis 04/27/2019 Overview (03/07/2021): Last Assessment & Plan: No evidence of cellulitis. Moisturize with vaseline. Use OTC cortisone OTC. Myalgia 04/27/2019 Acute cystitis 01/20/2019 Low back pain 01/19/2019 Overview (03/07/2021): Last Assessment & Plan: Will check urinalysis with reflex to culture Obesity (BMI 30-39.9) 08/28/2018 Neuropathy 03/24/2018 Weakness generalized 02/27/2018 Hyperlipidemia associated wi th type 2 diabetes mellitus ([facility]) 11/26/2017 Overview (03/07/2021): Last Assessment & Plan: Continue statin, work on glycemic control Parkinsonism ([facility]) 11/26/2017 Overview (03/07/2021): Last Assessment & Plan: Continue sinemet. Follow with Neurology. Adjustment and management of cardiac pacemaker 0 11/03/2017 Basal cell carcinoma (BCC) of skin of ear 2017 Basal cell carcinoma (BCC) of druze region 10/2017 History of nonmelanoma skin cancer 02/25/2017 Neoplastic disease 02/25/2017 Seborrheic keratoses 02/25/2017 Laryngopharyngeal reflux 08/26/2016 Obstructive sleep apnea syndrome 08/26/2016 Uncontrolled type 2 diabetes mellitus with hyperglycemia ([facility]) 05/22/2016 Overview (03/07/2021): Last Assessment & Plan: Glucoses within a reasonable margin of safety, so would not make any changes in his regimen at this time Muscle weakness of lower extremity 03/20/2016 Urinary incontinence 07/07/2015 Vitamin D deficiency 07/03/2015 Overview (03/07/2021): Last Assessment & Plan: Continue long-term supplement History of fall 06/20/2015 Overview (03/07/2021): Last Assessment & Plan: Patient has a history of falls and potential movement disorder, but has not been formally evaluated. In addition to getting a safer home, we are referring him to Neurology. This might also help explain why he has been fidgity. This will also guide on continuing his Sinemet. Vascular dementia ([facility]) 06/20/2015 Overview (03/07/2021): Last Assessment & Plan: Patient may experience some deficits with stress or electrolyte disturbances as was with his left leaning episodes. Will continue to monitor and emphasize safety to family. Achalasia of esophagus 12/28/2014 Dysphagia 06/30/2014 Overview (03/07/2021): Last Assessment & Plan: Patient is having chocking episodes and the is having to bend him over and push to get it out. This is dangerous and she was advised to call EMS next time. Patient would benefit from speech evaluation and modified barium swallow. Hydrocephalus ([facility]) 05/03/2014 Dementia ([facility]) 02/18/2014 Overview (03/07/2021): Last Assessment & Plan: As the patient continues to have functional decline, it will be important for his safety to be in a space that allows everything to be on one floor. This was reiterated to both the patient and his , and she seems to be motivated to find a new place. Hypertension 07/24/2013 Overview (03/07/2021): HYPERTENSION NOS Last Assessment & Plan: Hypertension is controlled. Continue current regimen. 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 Continue anticoagualtion. Complete atrioventricular block ([facility] ) 07/24/2010 Overview (03/07/2021): Last Assessment & Plan: S/P pacemaker. Follow with cardiology. Immunizations Name Administration Dates Next Due Tdap (Boostrix) 03/07/2021 Social History Tobacco Use Types Packs/Day Years Used Date Smoking Tobacco: Former Smokeless Tobacco: Never Alcohol Use Standard Drinks/Week Comments Never 0 (1 standard drink = 0.6 oz pur e alcohol) Sex and Gender Information Value Date Recorded Sex Assigned at Not on file Legal Sex Male 8:35 PM CDT Gender Identity Not on file Sexual Orientation Not on file Last Filed Vital Signs Vital Sign Reading Time Taken Comments Blood Pressure 152/88 03/09/2021 11:10 AM PROP WORKER Pulse 83 03/09/2021 11:10 AM PROP WORKER Temperature 36.7 C (98.1 F) 03/09/2021 11:10 AM PROP WORKER Respiratory Rate 22 03/09/2021 11:10 AM PROP WORKER Oxygen Saturation 94% 03/09/2021 11:10 AM PROP WORKER Inhaled Oxygen Concentration - - Weight 126 kg (277 lb 12.5 oz) 03/08/2021 4:18 A M PROP WORKER Height 190.5 cm (6' 3 ) 03/06/2021 11:23 PM PROP WORKER Body Mass Index 34.72 03/06/2021 11:23 PM PROP WORKER Plan of Treatment Health Maintenance Due Date Last Done Comments Diabetes: Retinopathy Eye Exam 01/26/1958 Zoster Vaccines (1 of 2) 01/26/1988 Annual Medicare Wellness Visit 2003 RSV Immunization or 60+ Years (1 - 1-dose 75+ series) 2013 Lipid Panel 01/15/2022 01/15/2021 Hemoglobin A1C 03/08/2022 09/06/2021, 02/09, 01/15/2021, Additional history exists COVID-19 Vaccine ( - season) 2023 Influenza Adult (#1) 2023 12/04/2018, 01/23/2018, 12/20/2016, Additional history exists PHQ-2 ([employer]) 03/10/2024 DTaP, Tdap and Td Vaccines (2 - Td or Tdap) 03/07/2031 03/07/2021 Pneumococcal Vaccine: 65+ Years Completed 07/17/2015, 11/15/2010 Meningococcal B Vaccine Aged Out No l onger eligible based on patient's age to complete this topic Meningococcal Vaccine Aged Out No gill lindsey eligible based on patient's age to complete this topic RSV Immunizations Under 20 Months Aged Out No longer eligible based on patient's age to complete this topic Procedures Procedure Name Priority Date/Time Associated Diagnosis Comments HEMOGLOBIN, GLYCOSYLATED Routine 09/06/2021 6:20 PM CDT DM hyperosmolarity type II ([facility]) from Last 3 Months or Most Recently Relevant to Health Maintenance Results * (ABNORMAL) HEMOGLOBIN, GLYCOSYLATED (09/06/2021 6:20 PM CDT) HGB A1C 6.3(H) <5.7 % 09/07/2021 12:52 AM CDT [facility] Comment: ADA GUIDELINES 2010 5.7 TO 6.4% INCREASED RISK OF DIABETES > OR = 6.5% CONSISTENT WITH DIABETES ESTIMATED AVG GLUCOSE 134 mg/dL 09/07/2021 12:52 AM CDT [facility] 09/06/2021 6:20 PM CDT Deborah Francois [employer] Final Result [facility] [address] [place] [address], from Last 3 Months or Most Recently Relevant to Health Maintenance Additional Health Concerns Infection Onset Date Last Indicated ESBL - Extended Spectrum Bet a-lactamase Comment:09/06/21 +ESBL Urine 09/09/2021 09/09/[address] [place] [address] MEDICARE [facility] Advance Directives Documents on File Type Date Recorded Patient Time Cycle Operator Expl anation Advance Directives and Living Will 03/11/2021 4:34 PM 06/23/2014 Signed PO A for Health Care * Full Code (Latest Code Status on File) Date Activated Date Inactivated Comments 03/07/2021 2:43 AM 03/09/2021 6:24 PM Care Teams Passenger Service Agent Relationship Specialty Start Date End Date Jonah Cook MD [address] [facility] [address] [place] [address] [facility] - General 06/13/15
--- NOTE | 2024-04-18 12:22 | ED_ITS ---
HPI - Male Genitourinary General Chief complaint: Urogenital-Male Stated complaint: blood in urine Time Seen by Provider: 04/18/24 12:03 History of Present Illness HPI Narrative: 84-year-old male with a past medical history including paroxysmal AFib on Eliquis, diabetes, CHF. Patient presents from his local [facility] for concerns of hematuria. Patient is alert oriented times 1-2 which is his baseline mentation from dementia. Patient herself has no acute complaints and denies any abdominal pain, back pain, penile pain or discharge. Denies any urinary tract infection symptoms such as dysuria, urgency, hesitancy. No testicular pain or swelling. No fever chills. Patient himself has no acute complaints at this time and otherwise appears well. No trauma or falls according to himself. Related Data Home Medications ?Medication ?Instructions ?Recorded ?Confirmed ?Last Taken ?Type divalproex 125 mg tablet,delayed 125 mg PO Q8H 10/29/23 02/18/24 Unknown History release (Depakote) Allergies Allergy/AdvReac Type Severity Reaction Status Date / Time cephalexin Allergy Unknown Verified 11/18/23 09:19 Review of Systems Review of Systems: As reviewed above in HPI [facility] Social History Social History Smoking status: Never smoker Exam Narrative: GENERAL: [Well-appearing, well-nourished, and in no acute distress.] HEAD: [Normocephalic, atraumatic.] EYES: [PERRLA and EOMI.] ENT: Nares clear, no rhinorrhea or epistaxis. Mucous membranes moist. NECK: Supple. CHEST: [Clear to auscultation. No respiratory distress.] HEART: [Regular rate and rhythm]. No murmur heard. [Normal peripheral pulses.] ABDOMEN: [Soft, nondistended], [nontender], [No rigidity or guarding] GENITOURINARY: No penile tenderness or erythema, no exudates or bleeding from the urethral meatus, no testicular pain, swelling or masses, no phimosis. No inguinal lymphadenopathy. EXTREMITIES: Normal range of motion. [No edema.] SKIN: Warm, dry, no rash. NEURO: [No focal deficits]. Alert and oriented [x1-2 at baseline.] PSYCH: [Normal mood and affect.] Course Vital Signs Vital signs: Vital Signs Temperature 36.7 C 04/18/24 11:54 Pulse Rate 77 04/18/24 11:54 Respiratory Rate 16 04/18/24 11:54 Blood Pressure 107/55 L 04/18/24 11:54 Pulse Oximetry 100 04/18/24 11:54 Oxygen Delivery Room Air 04/18/24 11:54 Temperature 36.7 C 04/18/24 11:54 Pulse Rate 77 04/18/24 11:54 Respiratory Rate 16 04/18/24 11:54 Blood Pressure 107/55 L 04/18/24 11:54 Pulse Oximetry 100 04/18/24 11:54 Oxygen Delivery Room Air 04/18/24 11:54 MDM - Male Genitourinary MDM Narrative Medical decision making narrative: 84-year-old male presenting from his [facility] facility for concerns of potential hematuria. Patient himself has no complaints and otherwise feels in his normal health. Denies any dysuria, urgency, frequency. No abdominal pain, back pain, flank pain. No fever. He is not sure why he was brought to the hospital. He is alert oriented times 1-2 at baseline but otherwise pleasant, calm cooperative. Not any distress. Examination is benign, no genitourinary lesions or masses on exam. Urinalysis was ordered to assess for hematuria or other concerns such as infection. Urinalysis shows copious white blood cells, bacteria and blood. Likely secondary to urinary tract infection with possible component of hemorrhagic cystitis. Culture sent. Patient was started on Bactrim, safe for discharge home given his stable vital signs, lack of acute complaints and overall benign exam. He will be sent home with 7 day course and instructed to follow up with his regular outpatient primary care provider or return with any new concerns. Medical Records Attestation: I reviewed the patient's medical records. Lab Data Attestation: I reviewed the patient's lab results. Labs: Lab Results 04/18/24 Range/Units 13:35 Urine Color Red H (Yellow) Urine Appearance Turbid H (Clear) Urine pH 6.0 (5.0-9.0) Ur Specific [place] 1.009 (1.001-1.035) Urine Protein 2+ H (Negative) mg/dL Urine Glucose (UA) Negative (Negative) mg/dL Urine Ketones Negative (Negative) mg/dL Ur Blood (Man) 3+ H (Negative) Urine Nitrate Negative (Negative) Urine Bilirubin Negative (Negative) Urine Urobilinogen 0.2 (<2.0) mg/dL Leukocyte Esterase Rfl 3+ H (Negative) IMELDA/UL Urine RBC >100 H (0-2) /hpf Urine WBC >100 H (0-3) /hpf Ur Squamous Epith Cells None seen (Few) /hpf Urine Bacteria 4+ H /hpf Urine Casts 0-2 Discharge Plan Discharge Clinical Impression: Acute UTI, Hematuria Patient Disposition: Home, Self-Care Condition: Stable Instructions: Antibiotic Form, Urinary Tract Infection in Men (ED), Hematuria (ED) Additional Instructions: Your urine appears to have a urinary tract infection with lots of white blood cells, bacteria and blood. We will treat this with an antibiotic and prescribed a 7 day course. Follow-up with your regular doctor, return with any new or worsening concerns such as developing fevers, abdominal pain, flank pain, difficulty urinating, any other concerns. Patient Language: Sinhala Prescriptions: New sulfamethoxazole-trimethoprim [Bactrim DS] 800-160 mg tablet 1 tablet PO Q12H Qty: 14 0RF No Action divalproex [Depakote] 125 mg tablet,delayed release (DR/EC) 125 mg PO Q8H Follow-up/Referrals: Lanny,Jonah Arthur DO [Primary Care Provider] - Time of Disposition: 14:04
--- OUTSIDE RECORDS SUMMARY | 2024-04-18 12:22 | XMS_ITS ---
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) ACTIVE 03/09/2021 HYPERLIPIDEMIA, UNSPECIFIED (E78.5 - ICD-10-CM) ACTIVE 03/09/2021 CYSTITIS, UNSPECIFIED WITHOU T HEMATURIA (N30.90 - ICD-10-CM) ACTIVE 03/09/2021 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 - ICD-10-CM) ACTI VE 03/09/2021 PAROXYSMAL ATRIAL FIBRILLATION (I48.0 - ICD-10-CM) ACT JOSE 03/09/2021 MALIGNANT NEOPLASM OF PROSTATE (C61 - ICD-10-CM) ACTIV E 03/09/2021 DERMATITIS, UNSPECIFIED (L30.9 - ICD-10-CM) ACTIVE 04/27/2019 MYALGIA, UNSPECIFIED SITE (M79.10 - ICD-10-CM) ACTIVE 04/27/2019 OBESITY, UNSPECIFIED (E66.9 - ICD-10-CM) ACTIVE 08/28/2018 POLYNEUROPATHY, UNSPECIFIED (G62.9 - ICD-10-CM) ACTIVE 03/24/2018 PARKINSON'S DISEASE (G20 - ICD-10-CM) ACTIVE 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 (C44.211 - ICD-10-CM) ACTIVE 03/17/2017 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 (C44.319 - ICD-10-CM) ACTIVE 03/17/2017 OTHER SEBORRHEIC KERATOSIS (L82.1 - ICD-10-CM) ACTIVE 02/25/2017 OBSTRUCTIVE SLEEP APNEA (VIJAYA LT) (PEDIATRIC) (G47.33 - ICD-10-CM) ACTIVE 08/26/2016 GASTRO-ESOPHAGEAL REFLUX DIS EASE WITHOUT ESOPHAGITIS (K21.9 - ICD-10-CM) ACTIVE 08/26/2016 VITAMIN D DEFICIENCY, UNSPECIFIED (E55.9 - ICD-10-CM) ACTIVE 07/03/2015 VASCULAR DEMENTIA, UNSPECIFI ED SEVERITY, WITHOUT BEHAVIORAL DISTURBANCE, PSYCHOTIC DISTURBANCE, MOOD DISTURBANCE, AND ANXIETY (F01.50 - ICD-10-CM) ACTIVE 06/20/2015 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, [address] [facility] [address] Component Value Range Date BILIRUBIN, TOTAL 0.9 mg/dL 0.2-1.2 05/29/2021 03:30 pm EDT GLUCOSE 69 05/29/2021 03:3 0 pm EDT CALCIUM 8.1 mg/dL 8.6-10.3mg/dL 05/29/2021 03: 30 pm EDT * CBC W/DIFF Performed by: [address], [place] [address] Component Value Range Date ANISOCYTOSIS 1+ NEGATIVE 05/29/2021 03:3 0 pm EDT NUCLEATED RBC 0.1 NRBC/100 WBC <1.0 05/29/2021 03:30 pm EDT * CMP-COMPREHENSIVE METABOLIC PNL Performed by: [address], [place] [address] Component Value Range Date CREATININE 2.4 mg/dL 0.7-1.3mg/dL 05/29/2021 03:3 0 pm EDT * CBC W/DIFF Performed by: [address], [place] [address] Component Value Range Date MPV 9.2 fL 6.5-12.0 05/29/2021 03:3 0 pm EDT * CMP-COMPREHENSIVE METABOLIC PNL Performed by: [address], [place] [address] Component Value Range Date BUN/CREATININE RATIO 12 6-25 022 03:30 pm EDT * CBC W/DIFF Performed by: [address], [place] [address] Component Value Range Date NEUTS (ABSOLUTE) 5.30 K/uL 1.50-7.60 05/29/2021 03:30 pm EDT EOS (ABSOLUTE) 0.30 K/uL 0.20-0.80 05/29/2021 03 :30 pm EDT MONOCYTES (ABSOLUTE) 0.90 K/uL 0.15-1.10 022 03:30 pm EDT * CMP-COMPREHENSIVE METABOLIC PNL Performed by: [address], [place] [address] Component Value Range Date A/G RATIO 0.8 0.8-2.0 05/29/2021 03:3 0 pm EDT * CBC W/DIFF Performed by: [address], [place] [address] Component Value Range Date RDW 17.0 % 11.0-16.0 05/29/2021 03:3 0 pm EDT NEUTROPHILS 66.5 % 40.0-80.0 05/29/2021 03:3 0 pm EDT BASO (ABSOLUTE) 0.10 K/uL 0.00-0.30 05/29/2021 0 3:30 pm EDT * CMP-COMPREHENSIVE METABOLIC PNL Performed by: [address], [place] [address] Component Value Range Date GYI-FQC-[id number] 26 mL/min/1.73 m2 >60 05/29/2021 03:30 pm EDT GFR- 31 mL/min/1.73 m2 >60 03:30 pm EDT * CBC W/DIFF Performed by: [address], [place] [address] Component Value Range Date MCV 92.4 fL 80.0-100.0 05/29/2021 03:3 0 pm EDT LYMPHS (ABSOLUTE) 1.40 K/uL 0.90-5.50 05/29/2021 03:30 pm EDT MONOCYTES 10.8 % 2.0-12.0 05/29/2021 03:3 0 pm EDT LYMPHS 17.0 % 13.0-48.0 05/29/2021 03:3 0 pm EDT BASO 1.6 % 0.0-2.0 05/29/2021 03:3 0 pm EDT EOS 4.1 % 0.0-8.0 05/29/2021 03:3 0 pm EDT * CMP-COMPREHENSIVE METABOLIC PNL Performed by: [address], [place] [address] Component Value Range Date POTASSIUM 3.9 mEq/L 3.5-5.3 05/29/2021 03:3 0 pm EDT * CBC W/DIFF Performed by: [address], [place] [address] Component Value Range Date HEMOGLOBIN 12.4 g/dL 14.0-18.0 05/29/2021 03:3 0 pm EDT * CMP-COMPREHENSIVE METABOLIC PNL Performed by: [address], [place] [address] Component Value Range Date BUN (UREA NITROGEN) 29 mg/dL 7-25 05/30/19 03:30 pm EDT SODIUM 139 mEq/L 135-145 05/29/2021 03:3 0 pm EDT * CBC W/DIFF Performed by: [address], [place] [address] Component Value Range Date RBC 4.22 M/cmm 4.00-6.60 05/29/2021 03:3 0 pm EDT MCHC 31.9 g/dL 31.0-36.5 05/29/2021 03:3 0 pm EDT * CMP-COMPREHENSIVE METABOLIC PNL Performed by: [address], [place] [address] Component Value Range Date CHLORIDE 100 mEq/L 98-110 05/29/2021 03:3 0 pm EDT CARBON DIOXIDE (CO2) 26 mEq/L 21-33 022 03:30 pm EDT * CBC W/DIFF Performed by: [address], [place] [address] Component Value Range Date MCH 29.4 pg 26.0-35.0 05/29/2021 03:3 0 pm EDT HEMATOCRIT 39.0 % 42.0-54.0 05/29/2021 03:3 0 pm EDT WBC 8.0 K/cmm 4.5-10.8 05/29/2021 03:3 0 pm EDT * CMP-COMPREHENSIVE METABOLIC PNL Performed by: [address], [place] [address] Component Value Range Date ALT (SGPT) 7 IU/L 4-55 05/29/2021 03:3 0 pm EDT * CBC W/DIFF Performed by: [address], [place] [address] Component Value Range Date PLATELET 224 K/cmm 150-450 05/29/2021 03:3 0 pm EDT * CMP-COMPREHENSIVE METABOLIC PNL Performed by: [address], [place] [address] Component Value Range Date AST (SGOT) 11 IU/L 4-40 05/29/2021 03:3 0 pm EDT ALBUMIN 2.5 g/dL 3.5-5.5 05/29/2021 03:3 0 pm EDT PROTEIN, TOTAL 5.6 g/dL 6.0-8.3 05/29/2021 03 :30 pm EDT ALKALINE PHOS 78 IU/L 34-136 05/29/2021 03: 30 pm EDT * URINALYSIS Performed by: [place] [address] [facility] [address], [address] [facility] [address] Component Value Range Date LEUKOCYTES,UR 3+ NEGATIVE 05/28/2021 04: 00 pm EDT PROTEIN,UR NEGATIVE NEGATIVE 05/28/2021 04:0 0 pm EDT RBC,UR 6-20 /HPF <6 05/28/2021 04:0 0 pm EDT BLOOD,UR 3+ NEGATIVE 05/28/2021 04:0 0 pm EDT WBC,UR 21-50 /HPF <6 05/28/2021 04:0 0 pm EDT NITRITE,UR NEGATIVE NEGATIVE 05/28/2021 04:0 0 pm EDT COLOR YELLOW YELLOW 05/28/2021 04:0 0 pm EDT EPITHELIAL CELL FEW NEGATIVE 05/28/2021 0 4:00 pm EDT HYALINE CASTS NEGATIVE NEGATIVE 05/28/2021 04: 00 pm EDT BACTERIA,UR MODERATE NEGATIVE 05/28/2021 04:0 0 pm EDT WBC CLUMPS PRESENT ABSENT 05/28/2021 04:0 0 pm EDT GLUCOSE,UR NEGATIVE NEGATIVE 05/28/2021 04:0 0 pm EDT SPECIFIC GRAVITY 1.008 1.001-1.030 05/28/2021 04:00 pm EDT UROBILINOGEN,UR NEGATIVE NEGATIVE 05/28/2021 0 4:00 pm EDT BILIRUBIN,UR NEGATIVE NEGATIVE 05/28/2021 04:0 0 pm EDT CLARITY HAZY CLEAR 05/28/2021 04:0 0 pm EDT PH, URINE 6.0 5.0-8.5 05/28/2021 04:0 0 pm EDT KETONES,UR NEGATIVE NEGATIVE 05/28/2021 04:0 0 pm EDT * Individual Tests: URINALYSIS / CULTURE, URINE Performed by: [address], [address] [facility] [id number] Component Value Range Date CULTURE, URINE . 05/28/2021 04 :00 pm EDT * CMP-COMPREHENSIVE METABOLIC PNL Performed by: [address] [address] Component Value Range Date CALCIUM 8.4 mg/dL 8.6-10.3mg/dL 05/07/2021 02: 11 pm EST GLUCOSE 92 05/07/2021 02:1 1 pm EST BILIRUBIN, TOTAL 0.7 mg/dL 0.2-1.2 05/07/2021 02:11 pm EST CREATININE 0.6 mg/dL 0.7-1.3mg/dL 05/07/2021 02:1 1 pm EST * CBC W/O DIFF Performed by: [place] [id number] Component Value Range Date MPV 9.7 fL 6.5-12.0 05/07/2021 02:1 1 pm EST * CMP-COMPREHENSIVE METABOLIC PNL Performed by: [address] [address] Component Value Range Date BUN/CREATININE RATIO 13 6-25 022 02:11 pm EST A/G RATIO 0.8 0.8-2.0 05/07/2021 02:1 1 pm EST * CBC W/O DIFF Performed by: [address] [address] Component Value Range Date MCV 91.1 fL 80.0-100.0 05/07/2021 02:1 1 pm EST * CMP-COMPREHENSIVE METABOLIC PNL Performed by: [address] [address] Component Value Range Date GFR- 156 mL/min/1.73 m2 >60 0 05/07/2021 02:11 pm EST KPT-XMG-FECSDER 129 mL/min/1.73 m2 >60 05/07/2021 02:11 pm EST ALKALINE PHOS 93 IU/L 34-136 05/07/2021 02: 11 pm EST * CBC W/O DIFF Performed by: [place] [id number] Component Value Range Date RDW 16.0 % 11.0-16.0 05/07/2021 02:1 1 pm EST * CMP-COMPREHENSIVE METABOLIC PNL Performed by: [address] [address] Component Value Range Date ALBUMIN 2.7 g/dL 3.5-5.5 05/07/2021 02:1 1 pm EST PROTEIN, TOTAL 6.2 g/dL 6.0-8.3 05/07/2021 02 :11 pm EST AST (SGOT) 16 IU/L 4-40 05/07/2021 02:1 1 pm EST * CBC W/O DIFF Performed by: [address] [address] Component Value Range Date PLATELET 190 K/cmm 150-450 05/07/2021 02:1 1 pm EST * CMP-COMPREHENSIVE METABOLIC PNL Performed by: [address] [address] Component Value Range Date ALT (SGPT) 11 IU/L 4-55 05/07/2021 02:1 1 pm EST * CBC W/O DIFF Performed by: [address] [address] Component Value Range Date WBC 7.2 K/cmm 4.5-10.8 05/07/2021 02:1 1 pm EST HEMATOCRIT 40.8 % 42.0-54.0 05/07/2021 02:1 1 pm EST MCH 29.8 pg 26.0-35.0 05/07/2021 02:1 1 pm EST MCHC 32.7 g/dL 31.0-36.5 05/07/2021 02:1 1 pm EST * CMP-COMPREHENSIVE METABOLIC PNL Performed by: [address] [address] Component Value Range Date CARBON DIOXIDE (CO2) 30 mEq/L 21-33 022 02:11 pm EST CHLORIDE 99 mEq/L 98-110 05/07/2021 02:1 1 pm EST * CBC W/O DIFF Performed by: [address] [address] Component Value Range Date RBC 4.48 M/cmm 4.00-6.60 05/07/2021 02:1 1 pm EST * CMP-COMPREHENSIVE METABOLIC PNL Performed by: [place] [id number] Component Value Range Date SODIUM 139 mEq/L 135-145 05/07/2021 02:1 1 pm EST BUN (UREA NITROGEN) 8 mg/dL 7-25 05/07/19 02:11 pm EST * CBC W/O DIFF Performed by: [place] [address] Component Value Range Date HEMOGLOBIN 13.3 g/dL 14.0-18.0 05/07/2021 02:1 1 pm EST * CMP-COMPREHENSIVE METABOLIC PNL Performed by: [place] [address] Component Value Range Date POTASSIUM 3.7 mEq/L 3.5-5.3 05/07/2021 02:1 1 pm EST * URINALYSIS Performed by: [place] [id number] Component Value Range Date COLOR MELISSA YELLOW 05/06/2021 04:3 4 pm EST LEUKOCYTES,UR 2+ NEGATIVE 05/06/2021 04: 34 pm EST BLOOD,UR 2+ NEGATIVE 05/06/2021 04:3 4 pm EST PROTEIN,UR NEGATIVE NEGATIVE 05/06/2021 04:3 4 pm EST WBC,UR >50 /HPF <6 05/06/2021 04:3 4 pm EST RBC,UR 6-20 /HPF <6 05/06/2021 04:3 4 pm EST NITRITE,UR POSITIVE NEGATIVE 05/06/2021 04:3 4 pm EST UROBILINOGEN,UR 2+ NEGATIVE 05/06/2021 0 4:34 pm EST SPECIFIC GRAVITY 1.018 1.001-1.030 05/06/2021 04:34 pm EST MUCOUS PRESENT ABSENT 05/06/2021 04:3 4 pm EST GLUCOSE,UR NEGATIVE NEGATIVE 05/06/2021 04:3 4 pm EST EPITHELIAL CELL FEW NEGATIVE 05/06/2021 0 4:34 pm EST KETONES,UR NEGATIVE NEGATIVE 05/06/2021 04:3 4 pm EST AMORPHOUS PRESENT ABSENT 05/06/2021 04:3 4 pm EST BACTERIA,UR FEW NEGATIVE 05/06/2021 04:3 4 pm EST CLARITY CLOUDY CLEAR 05/06/2021 04:3 4 pm EST HYALINE CASTS NEGATIVE NEGATIVE 05/06/2021 04: 34 pm EST WBC CLUMPS PRESENT ABSENT 05/06/2021 04:3 4 pm EST PH, URINE 5.0 5.0-8.5 05/06/2021 04:3 4 pm EST BILIRUBIN,UR NEGATIVE NEGATIVE 05/06/2021 04:3 4 pm EST * Individual Tests: URINALYSIS / CULTURE, URINE Performed by: [place] [id number] Component Value Range Date CULTURE, URINE . 05/06/2021 04 :34 pm EST * CMP-COMPREHENSIVE METABOLIC PNL Performed by: [place] [id number] Component Value Range Date CALCIUM 8.2 mg/dL 8.6-10.3mg/dL 05/03/2021 02: 07 pm EST BILIRUBIN, TOTAL 1.3 mg/dL 0.2-1.2 05/03/2021 02:07 pm EST CREATININE 0.6 mg/dL 0.7-1.3mg/dL 05/03/2021 02:0 7 pm EST GLUCOSE 102 05/03/2021 02:0 7 pm EST * CBC W/O DIFF Performed by: [place] [id number] Component Value Range Date MPV 9.5 fL 6.5-12.0 05/03/2021 02:0 7 pm EST HEMOGLOBIN 13.5 g/dL 14.0-18.0 05/03/2021 02:0 7 pm EST * CMP-COMPREHENSIVE METABOLIC PNL Performed by: [place] [id number] Component Value Range Date POTASSIUM 3.7 mEq/L 3.5-5.3 05/03/2021 02:0 7 pm EST BUN (UREA NITROGEN) 11 mg/dL 7-25 05/03/19 02:07 pm EST SODIUM 139 mEq/L 135-145 05/03/2021 02:0 7 pm EST * CBC W/O DIFF Performed by: [place] [id number] Component Value Range Date RBC 4.56 M/cmm 4.00-6.60 05/03/2021 02:0 7 pm EST * CMP-COMPREHENSIVE METABOLIC PNL Performed by: [place] [id number] Component Value Range Date CARBON DIOXIDE (CO2) 28 mEq/L 21-33 022 02:07 pm EST CHLORIDE 100 mEq/L 98-110 05/03/2021 02:0 7 pm EST * CBC W/O DIFF Performed by: [address] [address] Component Value Range Date MCH 29.6 pg 26.0-35.0 05/03/2021 02:0 7 pm EST MCHC 32.4 g/dL 31.0-36.5 05/03/2021 02:0 7 pm EST HEMATOCRIT 41.6 % 42.0-54.0 05/03/2021 02:0 7 pm EST WBC 6.2 K/cmm 4.5-10.8 05/03/2021 02:0 7 pm EST * CMP-COMPREHENSIVE METABOLIC PNL Performed by: [address] [address] Component Value Range Date ALT (SGPT) 11 IU/L 4-55 05/03/2021 02:0 7 pm EST * CBC W/O DIFF Performed by: [place] [id number] Component Value Range Date PLATELET 194 K/cmm 150-450 05/03/2021 02:0 7 pm EST * CMP-COMPREHENSIVE METABOLIC PNL Performed by: [address] [address] Component Value Range Date AST (SGOT) 15 IU/L 4-40 05/03/2021 02:0 7 pm EST ALBUMIN 2.6 g/dL 3.5-5.5 05/03/2021 02:0 7 pm EST PROTEIN, TOTAL 5.6 g/dL 6.0-8.3 05/03/2021 02 :07 pm EST ALKALINE PHOS 87 IU/L 34-136 05/03/2021 02: 07 pm EST * CBC W/O DIFF Performed by: [place] [id number] Component Value Range Date RDW 16.3 % 11.0-16.0 05/03/2021 02:0 7 pm EST * CMP-COMPREHENSIVE METABOLIC PNL Performed by: [address] [address] Component Value Range Date RUF-ORQ-DFDTZUB 129 mL/min/1.73 m2 >60 05/03/2021 02:07 pm EST GFR- 156 mL/min/1.73 m2 >60 0 05/03/2021 02:07 pm EST * CBC W/O DIFF Performed by: [address] [address] Component Value Range Date MCV 91.2 fL 80.0-100.0 05/03/2021 02:0 7 pm EST * CMP-COMPREHENSIVE METABOLIC PNL Performed by: [address] [address] Component Value Range Date BUN/CREATININE RATIO 18 6-25 022 02:07 pm EST A/G RATIO 0.9 0.8-2.0 05/03/2021 02:0 7 pm EST * Individual Tests: [facility] [place] Performed by: [address] [address] Component Value Range Date [facility], [place] * 04/10/2021 05:06 pm EST * Individual Tests: CULTURE, URINE Performed by: [place], [place] [address] [facility] [address] [facility] [address] Component Value Range Date CULTURE, URINE . 04/03/2021 02 :00 pm EST * CMP-COMPREHENSIVE METABOLIC PNL Performed by: [address] [address] Component Value Range Date CALCIUM 8.6 mg/dL 8.4-10.2 03/27/2021 06:0 6 pm EST BILIRUBIN, TOTAL 1.6 mg/dL 0.2-1.2 03/27/2021 06:06 pm EST CREATININE 0.6 mg/dL 0.6-1.3 03/27/2021 06:0 6 pm EST GLUCOSE 92 03/27/2021 06:0 6 pm EST * CBC W/DIFF Performed by: [address] [address] Component Value Range Date NUCLEATED RBC 0.1 NRBC/100 WBC <1.0 03/27/2021 06:06 pm EST MPV 9.8 fL 6.5-12.0 03/27/2021 06:0 6 pm EST * CMP-COMPREHENSIVE METABOLIC PNL Performed by: [address] [address] Component Value Range Date A/G RATIO 1.0 0.8-2.0 03/27/2021 06:0 6 pm EST * CBC W/DIFF Performed by: [address] [address] Component Value Range Date MCV 90.2 fL 80.0-100.0 03/27/2021 06:0 6 pm EST * CMP-COMPREHENSIVE METABOLIC PNL Performed by: [address] [address] Component Value Range Date BUN/CREATININE RATIO 20 6-34 022 06:06 pm EST * CBC W/DIFF Performed by: [place] [id number] Component Value Range Date EOS (ABSOLUTE) 0.10 K/uL 0.20-0.80 03/27/2021 06 :06 pm EST MONOCYTES (ABSOLUTE) 0.90 K/uL 0.15-1.10 022 06:06 pm EST EOS 1.7 % 0.0-8.0 03/27/2021 06:0 6 pm EST NEUTS (ABSOLUTE) 6.50 K/uL 1.50-7.60 03/27/2021 06:06 pm EST LYMPHS 14.3 % 13.0-48.0 03/27/2021 06:0 6 pm EST BASO 0.9 % 0.0-2.0 03/27/2021 06:0 6 pm EST LYMPHS (ABSOLUTE) 1.30 K/uL 0.90-5.50 03/27/2021 06:06 pm EST MONOCYTES 9.9 % 2.0-12.0 03/27/2021 06:0 6 pm EST * CMP-COMPREHENSIVE METABOLIC PNL Performed by: [address] [address] Component Value Range Date GFR- 156 mL/min/1.73 m2 >60 0 03/27/2021 06:06 pm EST * CBC W/DIFF Performed by: [place] [id number] Component Value Range Date BASO (ABSOLUTE) 0.10 K/uL 0.00-0.30 03/27/2021 0 6:06 pm EST * CMP-COMPREHENSIVE METABOLIC PNL Performed by: [place] [id number] Component Value Range Date UCE-LFM-JQICRDC 129 mL/min/1.73 m2 >60 03/27/2021 06:06 pm EST * CBC W/DIFF Performed by: [place] [id number] Component Value Range Date NEUTROPHILS 73.2 % 40.0-80.0 03/27/2021 06:0 6 pm EST RDW 14.3 % 11.0-16.0 03/27/2021 06:0 6 pm EST * CMP-COMPREHENSIVE METABOLIC PNL Performed by: [place] [id number] Component Value Range Date ALKALINE PHOS 97 IU/L 34-136 03/27/2021 06: 06 pm EST PROTEIN, TOTAL 6.2 g/dL 6.0-8.3 03/27/2021 06 :06 pm EST ALBUMIN 3.1 g/dL 3.5-5.5 03/27/2021 06:0 6 pm EST AST (SGOT) 24 IU/L 4-40 03/27/2021 06:0 6 pm EST * CBC W/DIFF Performed by: [address] [address] Component Value Range Date PLATELET 179 K/cmm 150-450 03/27/2021 06:0 6 pm EST HEMATOCRIT 45.2 % 42.0-54.0 03/27/2021 06:0 6 pm EST * CMP-COMPREHENSIVE METABOLIC PNL Performed by: [place] [id number] Component Value Range Date ALT (SGPT) 5 IU/L 4-55 03/27/2021 06:0 6 pm EST * CBC W/DIFF Performed by: [place] [id number] Component Value Range Date WBC 8.8 K/cmm 4.5-10.8 03/27/2021 06:0 6 pm EST MCHC 32.9 g/dL 31.0-36.5 03/27/2021 06:0 6 pm EST MCH 29.7 pg 26.0-35.0 03/27/2021 06:0 6 pm EST * CMP-COMPREHENSIVE METABOLIC PNL Performed by: [place] [id number] Component Value Range Date CHLORIDE 101 mEq/L 98-110 03/27/2021 06:0 6 pm EST * CBC W/DIFF Performed by: [place] [id number] Component Value Range Date RBC 5.01 M/cmm 4.00-6.60 03/27/2021 06:0 6 pm EST * CMP-COMPREHENSIVE METABOLIC PNL Performed by: [place] [id number] Component Value Range Date BUN (UREA NITROGEN) 12 mg/dL 7-25 03/27/19 22 06:06 pm EST CARBON DIOXIDE (CO2) 29 mEq/L 21-33 022 06:06 pm EST POTASSIUM 3.9 mEq/L 3.5-5.3 03/27/2021 06:0 6 pm EST SODIUM 140 mEq/L 136-145 03/27/2021 06:0 6 pm EST * CBC W/DIFF Performed by: [place] [id number] Component Value Range Date HEMOGLOBIN 14.9 g/dL 14.0-18.0 03/27/2021 06:0 6 pm EST * CBC W/DIFF Performed by: [address] [id number] Component Value Range Date HEMOGLOBIN 15.6 g/dL 14.0-18.0 03/15/2021 11:0 5 pm EST * CMP-COMPREHENSIVE METABOLIC PNL Performed by: [place] [id number] Component Value Range Date POTASSIUM 4.9 mEq/L 3.5-5.3 03/15/2021 11:0 5 pm EST SODIUM 132 mEq/L 136-145 03/15/2021 11:0 5 pm EST BUN (UREA NITROGEN) 14 mg/dL 7-25 03/15/19 22 11:05 pm EST CARBON DIOXIDE (CO2) 28 mEq/L 21-33 022 11:05 pm EST * CBC W/DIFF Performed by: [place] [id number] Component Value Range Date RBC 5.16 M/cmm 4.00-6.60 03/15/2021 11:0 5 pm EST * CMP-COMPREHENSIVE METABOLIC PNL Performed by: [place] [id number] Component Value Range Date CHLORIDE 93 mEq/L 98-110 03/15/2021 11:0 5 pm EST * CBC W/DIFF Performed by: [place] [id number] Component Value Range Date MCHC 34.1 g/dL 31.0-36.5 03/15/2021 11:0 5 pm EST MCH 30.2 pg 26.0-35.0 03/15/2021 11:0 5 pm EST HEMATOCRIT 45.8 % 42.0-54.0 03/15/2021 11:0 5 pm EST WBC 8.1 K/cmm 4.5-10.8 03/15/2021 11:0 5 pm EST * CMP-COMPREHENSIVE METABOLIC PNL Performed by: [place] [id number] Component Value Range Date ALT (SGPT) 30 IU/L 4-55 03/15/2021 11:0 5 pm EST * CBC W/DIFF Performed by: [place] [id number] Component Value Range Date PLATELET 135 K/cmm 150-450 03/15/2021 11:0 5 pm EST * CMP-COMPREHENSIVE METABOLIC PNL Performed by: [place] [id number] Component Value Range Date AST (SGOT) 38 IU/L 4-40 03/15/2021 11:0 5 pm EST ALBUMIN 3.2 g/dL 3.5-5.5 03/15/2021 11:0 5 pm EST PROTEIN, TOTAL 6.2 g/dL 6.0-8.3 03/15/2021 11 :05 pm EST ALKALINE PHOS 68 IU/L 34-136 03/15/2021 11: 05 pm EST * CBC W/DIFF Performed by: [place] [id number] Component Value Range Date RDW 13.8 % 11.0-16.0 03/15/2021 11:0 5 pm EST NEUTROPHILS 76.8 % 40.0-80.0 03/15/2021 11:0 5 pm EST * CMP-COMPREHENSIVE METABOLIC PNL Performed by: [place] [id number] Component Value Range Date TUU-DTI-VIMXWCR 159 mL/min/1.73 m2 >60 03/15/2021 11:05 pm EST GFR- 192 mL/min/1.73 m2 >60 0 03/15/2021 11:05 pm EST * CBC W/DIFF Performed by: [place] [id number] Component Value Range Date MCV 88.7 fL 80.0-100.0 03/15/2021 11:0 5 pm EST LYMPHS (ABSOLUTE) 1.00 K/uL 0.90-5.50 03/15/2021 11:05 pm EST MONOCYTES 8.2 % 2.0-12.0 03/15/2021 11:0 5 pm EST LYMPHS 12.3 % 13.0-48.0 03/15/2021 11:0 5 pm EST BASO 0.5 % 0.0-2.0 03/15/2021 11:0 5 pm EST EOS 2.2 % 0.0-8.0 03/15/2021 11:0 5 pm EST NEUTS (ABSOLUTE) 6.20 K/uL 1.50-7.60 03/15/2021 11:05 pm EST EOS (ABSOLUTE) 0.20 K/uL 0.20-0.80 03/15/2021 11 :05 pm EST MONOCYTES (ABSOLUTE) 0.70 K/uL 0.15-1.10 022 11:05 pm EST * CMP-COMPREHENSIVE METABOLIC PNL Performed by: [place] [id number] Component Value Range Date BUN/CREATININE RATIO 28 6-34 022 11:05 pm EST A/G RATIO 1.1 0.8-2.0 03/15/2021 11:0 5 pm EST * GLYCO-HGBA1C Performed by: [place] [id number] Component Value Range Date GLYCOHEMOGLOBIN-HGBA1C 8.0 % 4.1-6.1 03/15 11:05 pm EST * Individual Tests: CMP-COMPREHENSIVE METABOLIC PNL / LIPID PROFILE w/calc LDL / MAGNESIUM / GLYCO-HGBA1C / CBC W/DIFF / TSH 3-UL / VITAMIN D 25-OH TOTAL / TIQ-SAMPLE INTEGRITY ISSUE #2 Performed by: [place] [id number] Component Value Range Date TSH 3-UL 3.184 uIU/mL 0.340-5.600 03/15/2021 11:0 5 pm EST * CBC W/DIFF Performed by: [place] [id number] Component Value Range Date MPV 10.8 fL 6.5-12.0 03/15/2021 11:0 5 pm EST NUCLEATED RBC 1.2 NRBC/100 WBC <1.0 03/15/2021 11:05 pm EST * CMP-COMPREHENSIVE METABOLIC PNL Performed by: [place] [id number] Component Value Range Date CREATININE 0.5 mg/dL 0.6-1.3 03/15/2021 11:0 5 pm EST * LIPID PROFILE w/calc LDL Performed by: [place] [id number] Component Value Range Date CHOLESTEROL 111 mg/dL <200 03/15/2021 11:0 5 pm EST TRIGLYCERIDE 111 mg/dL <150 03/15/2021 11:0 5 pm EST HDL 32 mg/dL >40 03/15/2021 11:0 5 pm EST LDL CALCULATED 57 mg/dL <100 03/15/2021 11 :05 pm EST LDLc/HDL RATIO 1.8 <4:1 03/15/2021 11 :05 pm EST * GLYCO-HGBA1C Performed by: [address] [id number] Component Value Range Date eAG (Mean Glucose) 183 mg/dL <136 11:05 pm EST * LIPID PROFILE w/calc LDL Performed by: [address] [id number] Component Value Range Date VLDLc 22 mg/dL 5-40 03/15/2021 11:0 5 pm EST * Individual Tests: CMP-COMPREHENSIVE METABOLIC PNL / LIPID PROFILE w/calc LDL / MAGNESIUM / GLYCO-HGBA1C / CBC W/DIFF / TSH 3-UL / VITAMIN D 25-OH TOTAL / TIQ-SAMPLE INTEGRITY ISSUE #2 Performed by: [address] [id number] Component Value Range Date MAGNESIUM 1.9 mg/dL 1.5-2.5 03/15/2021 11:0 5 pm EST * TIQ-SAMPLE INTEGRITY ISSUE #2 Performed by: [address] [id number] Component Value Range Date TEST NAME BNP 03/15/2021 11:0 5 pm EST PROBLEM: SAMPLE INTEGRITY 03/15/2021 11:05 pm EST RESOLUTION: . 03/15/2021 11:0 5 pm EST LAB WILL REDRAW (DATE): SEE NOTES 08/2021 11:05 pm EST * CMP-COMPREHENSIVE METABOLIC PNL Performed by: [address] [id number] Component Value Range Date GLUCOSE 215 03/15/2021 11:0 5 pm EST CALCIUM 8.2 mg/dL 8.4-10.2 03/15/2021 11:0 5 pm EST BILIRUBIN, TOTAL 0.9 mg/dL 0.2-1.2 03/15/2021 11:05 pm EST * Individual Tests: CMP-COMPREHENSIVE METABOLIC PNL / LIPID PROFILE w/calc LDL / MAGNESIUM / GLYCO-HGBA1C / CBC W/DIFF / TSH 3-UL / VITAMIN D 25-OH TOTAL / TIQ-SAMPLE INTEGRITY ISSUE #2 Performed by: [place] [address] [facility] [id number] Component Value Range Date VITAMIN D, 25-OH TOTAL 26 30-100 03/15 11:05 pm EST * BILATERAL LOWER ARTERIAL DOPPLER Performed by: [facility] Component Value Range Date BILATERAL LOWER ARTERIAL DOPPLER Bilateral lower extremity arteries:TECHNIQUE: Adhikari scale, color flow and Doppler waveform analysis.COMPARISON: None.FINDINGS:Right: Mild plaque is noted within visualized arteriesARTERY VELOCITY WAVEFORMCFA 70 cm/sec BiphasicPFA 52 cm/sec BiphasicSFA 69 cm/sec TriphasicPopliteal 51 cm/sec TriphasicPost-Tib 57 cm/sec TriphasicLeft: Mild plaque is noted within visualized arteriesARTERY VELOCITY WAVEFORMCFA 65 cm/sec TriphasicPFA 50 cm/sec BiphasicSFA 51 cm/sec BiphasicPopliteal 44 cm/sec TriphasicPost-Tib 67 cm/sec TriphasicSurrounding soft tissues show no evidence of masses. There is no popliteal cyst. Visualized muscular tissue appears within normal limits. No inguinal or thigh lymph nodes are identified.IMPRESSION:1. Findings consistent with mild peripheral vascular disease without occlusion, right lower extremity.2. Findings consistent with mild peripheral vascular disease without occlusion, left lower extremity.3. Mild plaque is noted within visualized arteries, bilaterally.NNEKA:TECHNIQUE: Arterial pressures measured for upper and lower extremities.COMPARISON: None.FINDINGS:RightUpper Extremity Pressure (mmHg) : 128Lower Extremity Pressure (mmHg) : 159ABI : 1.14LeftUpper Extremity Pressure (mmHg) : 139Lower Extremity Pressure (mmHg) : 152ABI : 1.09IMPRESSION:See Note1. Right NNEKA of 1.14 compatible with normal right Ankle-Brachial Index. May represent a false negative result due to lack of compressibility of heavily calcified vessels given patient age. Correlation with Doppler is recommended.See Note2. Left NNEKA of 1.09 compatible with normal left Ankle-Brachial Index. May represent a false negative result due to lack of compressibility of heavily calcified vessels given patient age. Correlation with Doppler is recommended. 05/09/2021 05:23 am EST * R-FOOT Performed by: [facility] Component Value Range Date R-FOOT PROCEDURE RIGHT FOOT X-RAYS 4 viewsSee NoteFINDINGS RIGHT FOOT : Examination reveals mild soft tissue swelling and mild hallux valgus deformity with dorsiflexion of the toes and a small inferior calcaneal spur no evidence of recent fracture or dislocation . Clinical correlation is requested.IMPRESSION RIGHT FOOT : No recent fracture or dislocation. 03/29/2021 05:03 am EST * CHEST XRAY AP ONLY X-RAY Performed by: [facility] Component Value Range Date CHEST XRAY AP ONLY X-RAY Technique: Ches t, single viewComparison: None.See NoteFindings: A left sided pacemaker is present with dual leads. The cardiomediastinal silhouette is mildly prominent. Pulmonary vascularity is unremarkable. There are no focal infiltrates. The costophrenic angles are sharp with no pleural effusion. The bony mineralization is mildly decreased. Mild degenerative changes are noted in the gleno-humeral joints.Impression:1. No radiographic evidence of acute cardiopulmonary disease.2. Mild cardiomegaly.3. Mild degree of osteopenia.4. Mild osteoarthritis. 03/28/2021 02:27 am EST Encounters Encounter Performer Performer Role Encounter Diagnoses Location Date Discharge - Discharged / Transferred to [facility] - [place]) - Acute care [facility] [place] 03/09/2021 05:56 pm EST - 05/30/2021 07:30 pm EDT Reason For Referral Altered Mental Status Immunizations Vaccine Date SARS-COV-2 (COVID-19) Social History
--- OUTSIDE RECORDS SUMMARY | 2024-04-18 12:22 | XMS_ITS ---
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 Continue apixaban 5 mg p.o. b.i.d. Assessment & Plan (10/07/2023 4:17 PM CDT): Currently stable without evidence of RVR. Continue apixaban 5 mg p.o. b.i.d. Assessment & Plan (09/27/2023 7:30 AM CDT): Cont apixaban Assessment & Plan (07/30/2023 1:25 PM CDT): Chronic, stable; cont rx apixaban Unspecified diastolic (congestive) heart failure 04/15/2022 Dysphagia, oropharyngeal phase 04/10/2022 Difficulty in walking, not elsewhere classified 04/08/2022 Weakness 04/08/2022 Unspecified lack of coordination 02/07/2022 Personal history of COVID-19 12/27/2021 Moderate malnutrition (CMS/HCC) 09/17/2021 Unsteadiness on feet 07/06/2021 Chronic obstructive pulmonary disease, unspecifi ed 06/24/2021 Acute embolism and thrombosi s of unspecified deep veins of lower extremity, bilateral 06/18/2021 Cerebral infarction, unspecified 06/18/2021 Esophageal obstruction 06/18/2021 Neuromuscular dysfunction of bladder, unspecifie d 06/18/2021 Unspecified malignant neoplasm of skin, unspecif ied 06/18/2021 Acute kidney failure with tubular necrosis (CMS/ HCC) 06/18/2021 Typical atrial flutter (CMS/HCC) 06/18/2021 Benign prostatic hyperplasia with lower urinary tract symptoms 06/18/2021 Dysphagia following cerebral infarction 06/19/19 Presence of cardiac pacemaker 06/18/2021 Essential (primary) hypertension 06/18/2021 Hydrocephalus, unspecified 06/18/2021 Hyperlipidemia, unspecified 06/18/2021 Unspecified severe protein-calorie malnutrition 06/18/2021 Hereditary and idiopathic neuropathy, unspecifie d 06/18/2021 Obstructive sleep apnea (adult) (pediatric) 06/08 Parkinson's disease 06/18/2021 Chronic atrial fibrillation, unspecified 022 Peripheral vascular disease, unspecified 022 Type 2 diabetes mellitus with unspecified compli cations 06/18/2021 Major depressive disorder, recurrent, unspecifie d 06/17/2021 Unspecified abnormalities of gait and mobility 0 06/17/2021 Other lack of coordination 06/17/2021 Sinus tachycardia 05/31/2021 Recurrent UTI 05/30/2021 Assessment & Plan (10/08/2023 10:28 AM CDT): Chronic and stable. Continue methenamine Assessment & Plan (09/22/2023 10:40 AM CDT): Urology fu outpt. Continue Hiprex. Assessment & Plan (09/15/2023 11:48 AM CDT): Abx completed. Fu Urology outpt. Assessment & Plan (09/12/2023 10:55 AM CDT): Meropenum complete. IV line dc. Monitor for reoccurance. Fu outpt. Assessment & Plan (09/05/2023 1:38 PM CDT): Based on Urology procedure/notes will add 5 days to Meropenum. Does have ho recurrent UTI & Dr. Dickens wanting Jardiance dc. Can attempt to remove stent with helton next week. Dr. Dickens does recommend assisted helton but patient is resistant at this time. Assessment & Plan (09/01/2023 12:48 PM CDT): Continue Meropenum per cx. Have stent removal scheduled for 09/02. Repeat Ucx NGTD. Urology alerted. Assessment & Plan (08/28/2023 12:47 PM CDT): Multi-drug resistant. Will start on IV Meropenum per c/s. Have notified Dr. Chu of results & orders. Patient will need to fu with Urology for stent removal again dt UTI. Patient is urinating on own without pain or s/s of UTI. Assessment & Plan (08/27/2023 1:24 PM CDT): The urine culture is growing greater than 100,000 colonies of E coli, sensitivity pending. I have initiated Macrobid 100 mg p.o. b.i.d. x7 days. Assessment & Plan (08/11/2023 12:13 PM CDT): Started on Amoxicillin per prior to stent removal. Started 08/08. Assessment & Plan (08/05/2023 11:24 AM CDT): Repeat UCx shows +Enterococcus, discussed with Dr. Chu and he needs no treatment unless having sx. He denies sx. Will need abx prior to Urology procedure. Assessment & Plan (07/30/2023 1:29 PM CDT): Per this is chronic. Cont rx methenamine; is wondering if this can now be stopped. He has an appt w Dr Dickens in 2-3w and I encourage her to disc this w his . Assessment & Plan (04/29/2022 12:59 PM ASSISTED LIVING COORDINATOR): -Has had 1 confirmed, possibly 2-3 other UTI's in the last year requiring hospitalization. -Marissa () asked about medication to reduce occurrence. We discussed methenamine with vit C and they would like to try. I informed them that UTI's cannot be cured but sometimes can reduce frequency. They VU. PLAN: -Start methenamine 1g BID with vitamin C 500mg BID. -Will f/u in about 6 months. PVD (peripheral vascular disease) 05/17/2021 Assessment & Plan (10/08/2023 10:26 AM CDT): Chronic and stable. Continue apixaban Assessment & Plan (05/17/2021 10:47 AM ASSISTED LIVING COORDINATOR): Assessment/plan: Continue ASA and statin therapy. Bilateral segmental with ABIs ordered. Follow-up in 1-2 weeks. (Idiopathic) normal pressure hydrocephalus 03/09 Other abnormalities of gait and mobility 021 Assessment & Plan (09/29/2023 11:39 AM CDT): DC pending of ECF placement. Continues at baseline. Assessment & Plan (08/05/2023 11:28 AM CDT): Continue PT/OT. [facility]. COVID-19 virus vaccination refused 10/10/2020 Diabetes mellitus 07/04/2020 Assessment & Plan (10/08/2023 10:27 AM CDT): Chronic and currently stable. Continue insulin glargine and insulin lispro. Assessment & Plan (10/07/2023 4:17 PM CDT): Currently stable, continue insulin glargine and lispro. Assessment & Plan (09/15/2023 11:50 AM CDT): BS 107-250. Continue Lantus + SSI. Jardiance dc d/t recurrent UTIs/elevated glucose in urine. Assessment & Plan (07/31/2023 11:35 AM CDT): A1c 10. Continue Lantus + SSI + Jardiance. BS 110-185. Assessment & Plan (07/30/2023 1:29 PM CDT): Chronic, stable, monitor bg and follow up lab ordered. Cont rx insulin glargine and lispro. Assessment & Plan (05/17/2021 10:46 AM ASSISTED LIVING COORDINATOR): Assessment/plan: Insulin strict glucose control Assessment & Plan (07/04/2020 7:05 AM CDT): Continue insulin. Polyneuropathy, unspecified 03/24/2018 Hyperlipidemia associated with type 2 diabetes perlita santos 11/26/2017 Assessment & Plan (10/10/2020 8:02 AM CDT): Continue statin, work on glycemic control Assessment & Plan (07/04/2020 7:02 AM CDT): Continue insulin and Endocrinology care. Reviewed proper diet. Continue statin therapy;reviewed LDL was 84 on 12/29/19. Assessment & Plan (12/29/2019 2:04 PM CDT): Continue insulin and Endocrinology care. Reviewed proper diet. Continue statin therapy. Assessment & Plan (12/04/2018 1:54 PM CDT): Continue insulin and Endocrinology care. Reviewed proper diet. Continue statin therapy. Start aspirin. Assessment & Plan (07/03/2018 9:35 AM CDT): Continue statin, glycemic control Assessment & Plan (11/26/2017 7:07 AM CDT): Reviewed proper diet. Continue statin therapy. Reviewed recent LDL, 77,at goal. Parkinsonism 11/26/2017 Assessment & Plan (07/04/2020 7:02 AM CDT): Continue sinemet. Follow with Neurology. Assessment & Plan (12/29/2019 2:06 PM CDT): Continue sinemet. Follow with Neurology. Assessment & Plan (12/04/2018 1:37 PM CDT): Continue Sinemet and Neurology care. Assessment & Plan (11/26/2017 7:05 AM CDT): Continue Sinemet and follow with Neurology. Adjustment and management of cardiac pacemaker 0 11/03/2017 Basal cell carcinoma (BCC) of hinduism region 10/2017 Basal cell carcinoma (BCC) of skin of ear 2017 Neoplastic disease 02/25/2017 History of nonmelanoma skin cancer 02/25/2017 Laryngopharyngeal reflux 08/26/2016 Obstructive sleep apnea syndrome 08/26/2016 Gastroesophageal reflux disease without esophagi tis 08/26/2016 Incontinence of urine 07/07/2015 Assessment & Plan (10/22/2021 12:28 PM CDT): -Marissa reports he is also incontinent of stool. -Discussed possible addition of bladder medication for incontinence but discussed his incontinence if likely mostly related to memory, decreased ambulation and that medication may help reduce how much incontinence is occurring but not fully stop. I discussed that it is less common but can cause retention. -Decision made to hold off on additional medication. PLAN: -He is currently in rehab working with PT/OT. We will discuss possible trial of bladder medication if his ambulation improves. Vitamin D deficiency 07/03/2015 Assessment & Plan (10/10/2020 8:02 AM CDT): Continue long-term supplement Assessment & Plan (02/23/2020 10:37 AM ASSISTED LIVING COORDINATOR): Continue daily supplement Assessment & Plan (09/01/2019 8:28 AM CDT): Continue supplement Assessment & Plan (01/19/2019 1:00 PM ASSISTED LIVING COORDINATOR): Continue supplement, recheck labs Assessment & Plan (07/03/2018 9:35 AM CDT): Continue supplement History of fall 06/20/2015 Assessment & Plan (08/15/2023 1:04 PM CDT): Patient did slip from bed 6 & has been complaining of L rib pain since. Will obtain XR to ro. He does report better but asking for XR. Assessment & Plan (05/19/2020 5:35 AM ASSISTED LIVING COORDINATOR): Patient has a history of falls and potential movement disorder, but has not been formally evaluated. In addition to getting a safer home, we are referring him to Neurology. This might also help explain why he has been fidgity. This will also guide on continuing his Sinemet. Vascular dementia, unspecifi ed severity, without behavioral disturbance, psychotic disturbance, mood disturbance, and anxiety 06/20/2015 Assessment & Plan (09/29/2023 11:41 AM CDT): Memory at baseline. Stable on Lexapro & Trazodone, controlling anxiety & depression well. Assessment & Plan (08/11/2023 12:12 PM CDT): Memory continues to fluctuate. WC mobile thru facility. Behaviors stable. Continue Lexapro & Trazodone. Assessment & Plan (07/30/2023 1:38 PM CDT): His MOCA is 6/30 and I am informing him/. As previously discussed, needs to have this information as she meets w soc services for future planning. Cont rx lexapro and trazodone. wants us to avoid psychotrophics (except as a last resort). He was previously on seroquel and she is happy that he isn't currently on this. Achalasia of esophagus 12/28/2014 Essential (primary) hypertension 07/24/2013 Overview (06/12/2016): HYPERTENSION NOS Assessment & Plan (10/08/2023 10:27 AM CDT): Chronic and stable. Continue valsartan Assessment & Plan (09/27/2023 7:30 AM CDT): Stable, chronic; cont rx lasix, valsartan Assessment & Plan (09/22/2023 10:42 AM CDT): BP stable. Continue Lasix, Entresto. Assessment & Plan (09/15/2023 11:51 AM CDT): BP stable. DC Metoprolol. Assessment & Plan (09/12/2023 10:58 AM CDT): BP remains controlled as does pulse & volume status. Continue to hold Metoprolol. Jardiance dc by DAVONTE. Pt will need to fu with Cardio outpt. Assessment & Plan (09/01/2023 12:49 PM CDT): BP stable. Soft at times. Continue to monitor. Assessment & Plan (08/28/2023 12:49 PM CDT): BP stable. Continue Entresto, Lasix. Metoprolol on hold dt soft BP. Assessment & Plan (08/27/2023 1:25 PM CDT): This is currently stable and chronic problem. Continue valsartan. Assessment & Plan (08/26/2023 12:52 PM CDT): BP improved. Continue to hold metoprolol, continue lasix, entersto. Monitor. Assessment & Plan (08/18/2023 11:31 AM CDT): BP soft at times. Metoprolol on hold. Continues on Lasix, Entresto, Finasteride. Entresto held today. Will monitor. Assessment & Plan (08/11/2023 12:16 PM CDT): BP soft. Currently on Lasix, Metoprolol, Entresto. Will hold Metoprolol at this time. Monitor. Assessment & Plan (07/30/2023 1:26 PM CDT): Chronic, stable; cont rx metoprolol, valsartan Assessment & Plan (07/04/2020 7:01 AM CDT): Hypertension is controlled. Continue current regimen. Assessment & Plan (12/29/2019 2:04 PM CDT): Hypertension is controlled. Continue current regimen. Assessment & Plan (04/27/2019 12:44 PM ASSISTED LIVING COORDINATOR): Hypertension is controlled. Continue current regimen. Assessment & Plan (12/04/2018 1:36 PM CDT): Hypertension is controlled. Continue current regimen. Assessment & Plan (07/03/2018 9:35 AM CDT): Blood pressure within target, managed by other doctors. Assessment & Plan (11/26/2017 7:05 AM CDT): Hypertension is controlled. Continue current regimen. Class 2 severe obesity due t o excess calories with serious comorbidity and body mass index (BMI) of 36.0 to 36.9 in adult 08/28/2012 Assessment & Plan (11/26/2017 12:59 PM CDT): BMI is more than 30, reviewed calorie restrictions. Gonadotropin deficiency 05/22/2012 Malignant neoplasm of prostate 08/07/2010 Complete atrioventricular block ([facility]/HCC) 2010 Assessment & Plan (11/26/2017 7:06 AM CDT): S/P pacemaker. Follow with cardiology. Atrial flutter ([facility]) 07/24/2010 SSS (sick sinus syndrome) ([facility]) Chronic combined systolic an d diastolic congestive heart failure ([facility]) Assessment & Plan (10/07/2023 4:18 PM CDT): Currently stable. Please continue Entresto and furosemide Assessment & Plan (09/27/2023 7:30 AM CDT): Stable, cont rx entresto Assessment & Plan (09/22/2023 10:41 AM CDT): Compensated. Continue Lasix + Entresto. Will need Cardiology fu. Assessment & Plan (09/15/2023 11:50 AM CDT): Compensated.Continue Lasix + Entresto. Assessment & Plan (09/05/2023 1:40 PM CDT): Jardiance dc d/t recurrent UTIs elevated urine glucose. Will fu with Cardiology outpt. Continue Entersto + Lasix. Compensated. Assessment & Plan (07/30/2023 1:30 PM CDT): Chronic, stable; cont rx entresto, jardiance, lasix. Anxiety and depression History of pulmonary embolism Current Oncology Plans No current plan information found. Past Plans No past plan information found. Radiation Treatments * No radiation treatments are documented for this patient in [facility]. Treatments may have been administered in another system. Lifetime Dose Tracking * Chemical Lifetime Dose Automatic Entry Manual Entr y Fluoro Time 61.778 minutes 61.778 minutes 0 minutes Air kerma at the reference point (Ka,r) 2,939.55 mGy 2 ,387.55 mGy 552 mGy DLP 3,311 mGycm 3,311 mGycm 0 mGycm Resolved Problems Problem Noted Date Diagnosed Date Resolved Date Kidney stone 08/29/2023 09/05/2023 Rib pain 08/15/2023 09/05/2023 Assessment & Plan (08/18/2023 11:29 AM CDT): XR negative. Pain improved. Renal stone 07/18/2023 09/15/2023 Assessment & Plan (08/15/2023 1:03 PM CDT): FU Urology [facility] for 08/24. Keep. SS aware & scheduling. 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 Obstructive nephropathy 07/13/202309/07 Assessment & Plan (09/15/2023 11:49 AM CDT): Stent & helton removed 09/11. Voiding well on own. DC bladder scans. Assessment & Plan (09/12/2023 10:56 AM CDT): Stent & helton removed 09/11. Eliquis placed on hold for weekend. Voiding trial ordered. Assessment & Plan (09/08/2023 1:08 PM CDT): Will remove stent & helton 09/11. Urology is not wanting termite treater helper helton but patient is not. Will discuss with patient & prior to Friday. Will complete abx tomorrow for UTI & will dc midline after. Hematuria resolved will resume Eliquis. Assessment & Plan (09/05/2023 1:39 PM CDT): Hematuria noted after Urologic procedure will hold Eliquis & monitor. Assessment & Plan (08/26/2023 12:49 PM CDT): Patient had urology appt for stent removal 08/25. Unable to be done d/t cloudy urine & UA suggestive for UTI. He denies any s/s of infection. Will order labs for am, waiting for Ucx from appt to finalize & start abx. Monior closely. Assessment & Plan (08/11/2023 12:14 PM CDT): Stent removal 08/[address] Chu. Assessment & Plan (08/05/2023 11:24 AM CDT): S/p stent placed in right ureteral. Helton removed & voiding well s/p transfer. Patient to continue methenamine & fu with Urology 08/11 for removal. Patient will require amoxicillin bid x5days 4 days prior - ordered entered. Assessment & Plan (07/31/2023 11:35 AM CDT): S/p stent placed in right ureteral. Helton removed & voiding well s/p transfer. Patient to continue methenamine & fu with Urology 08/11 for removal. Patient will require amoxicillin bid x5days 4 days prior. Assessment & Plan (07/30/2023 1:40 PM CDT): asks for this visit to disc management of R ureteral stent. She has spoken w Dr Dickens's office and they are planning to see him in 2-3 wks. In turn, I have notified Evie in [facility] so this appt and transportation can be scheduled. He needs to cont rx methanmine until seeing Dr Dickens. Follow up lab ordered. Assessment & Plan (07/30/2023 1:24 PM CDT): This is subacute and improving. Will order follow up lab to monitor renal function and lytes. Will encourage follow up w DAVONTE Dickens in 2-3 wks for management of retained R ureteral stent. Fungemia 07/12/2023 07/31/2023 E coli bacteremia 07/10/2023 07/31/2023 Assessment & Plan (07/31/2023 11:28 AM CDT): Completed abx. Repeat CX NGTD. Hyperkalemia 07/09/2023 08/05/2023 Hyponatremia 07/09/2023 08/05/2023 Sepsis, due to unspecified o rganism, unspecified whether acute organ dysfunction present 07/08/2023 07/31/2023 UTI due to extended-spectrum beta lactamase (ESBL) producing Escherichia coli 04/03/20232023 Hematuria 03/06/2023 07/31/2023 Urinary tract infection in male 02/23/2023 07/31/2023 Pedal edema 03/31/2022 07/31/2023 Acute on chronic systolic heart failure 03/31/2022 02/23/2023 Orthostatic hypotension 07/18/202107/09 Severe malnutrition 05/31/2021 08/05/19 FLORINDA (acute kidney injury) 05/31/2021 Assessment & Plan (07/31/2023 11:29 AM CDT): Repeat labs pending for am. Monitor. Sepsis associated hypotension 05/31/2021 07/31/2023 Multiple open wounds of ankle 05/17/2021 02/23/2023 Assessment & Plan (05/17/2021 10:51 AM ASSISTED LIVING COORDINATOR): Assessment/plan: Pressure ulceration the lateral ankles likely from his bed. Continue local wound care with Betadine paint and offloading. Eventually he will likely need an MRI to rule out osteomyelitis. Cognitive communication deficit 03/09/2021 07/31/2023 Myalgia 04/27/2019 02/23/2023 Dermatitis 04/27/2019 02/23/2023 Assessment & Plan (04/27/2019 1:50 PM ASSISTED LIVING COORDINATOR): No evidence of cellulitis. Moisturize with vaseline. Use OTC cortisone OTC. Acute cystitis 01/20/2019 07/31/2023 Low back pain 01/19/2019 09/22/2023 Assessment & Plan (01/19/2019 1:19 PM ASSISTED LIVING COORDINATOR): Will check urinalysis with reflex to culture Obesity (BMI 30-39.9) 08/28/20182022 Neuropathy 03/24/2018 07/31/2023 Generalized weakness 02/27/2018 023 Actinic keratosis 02/25/2017 09/29/2023 Seborrheic keratoses 02/25/2017 024 Alzheimer's disease 10/01/2016 11/27/19 18 Uncontrolled type 2 diabetes mellitus with hyperglycemia 05/22/2016 02/23/2023 Assessment & Plan (10/10/2020 8:02 AM CDT): Glucoses within a reasonable margin of safety, so would not make any changes in his regimen at this time Assessment & Plan (02/23/2020 10:38 AM ASSISTED LIVING COORDINATOR): Glucoses a little high, but he has some cognitive issues and prone to falling, so need to minimize risk of hypoglycemia. We could safely increase his basal insulin a little, however. Assessment & Plan (09/01/2019 8:31 AM CDT): Most glucoses within a good range, one day had high afternoon glucoses. He needs to check more often, particularly in the afternoons and have some follow-up labs Assessment & Plan (01/19/2019 1:00 PM ASSISTED LIVING COORDINATOR): Glucoses within a good margin of safety, but a little high so he would benefit from a little more basal insulin Assessment & Plan (07/03/2018 9:35 AM CDT): Mild hyperglycemia, but maintaining a good margin of safety. I would not change therapy at this time Muscle weakness of lower extremity 03/20/2016 02/23/2023 Vascular dementia 06/20/2015 02/23/2023 Assessment & Plan (05/19/2020 5:38 AM ASSISTED LIVING COORDINATOR): Patient may experience some deficits with stress or electrolyte disturbances as was with his left leaning episodes. Will continue to monitor and emphasize safety to family. Assessment & Plan (02/23/2020 10:37 AM ASSISTED LIVING COORDINATOR): He is supported by his . Need to minimize risk of hypoglycemia Dysphagia 06/30/2014 09/08/2023 Assessment & Plan (05/19/2020 5:36 AM ASSISTED LIVING COORDINATOR): Patient is having chocking episodes and the is having to bend him over and push to get it out. This is dangerous and she was advised to call EMS next time. Patient would benefit from speech evaluation and modified barium swallow. Hydrocephalus 05/03/2014 07/31/2023 Dementia 02/18/2014 08/05/2023 Assessment & Plan (07/30/2023 1:27 PM CDT): His MOCA is 6/30 and advised. Cont rx trazodone. Assessment & Plan (05/19/2020 5:31 AM ASSISTED LIVING COORDINATOR): As the patient continues to have functional decline, it will be important for his safety to be in a space that allows everything to be on one floor. This was reiterated to both the patient and his , and she seems to be motivated to find a new place. Assessment & Plan (11/26/2017 7:05 AM CDT): Reviewed note from geriatric medication. Continue 24 hour care. PAF (paroxysmal atrial fibri llation) ([facility]) 07/24/2013 09/17/2022 Overview (06/14/2016): ATRIAL FIBRILLATION Assessment & Plan (05/17/2021 10:46 AM ASSISTED LIVING COORDINATOR): Assessment/plan: Metoprolol Assessment & Plan (04/27/2019 12:44 PM ASSISTED LIVING COORDINATOR): Continue rate control. Continue anticoagualtion. Assessment & Plan (12/04/2018 1:38 PM CDT): Continue metoprolol. S/p pacemaker. Assessment & Plan (11/26/2017 7:05 AM CDT): Continue rate control. Continue anticoagualtion. Diabetic hypoglycemia (CMS/HCC) 03/26/2013 02/23/2023 Pacemaker at end of battery life 10/27/2012 07/31/2023 Skin callus 05/04/2012 09/29/2023 Onychomycosis due to dermatophyte 05/04/2012 02/23/2023 BPH with obstruction/lower u rinary tract symptoms 02/23/2023 Assessment & Plan (04/29/2022 12:57 PM ASSISTED LIVING COORDINATOR): -On flomax. -PVR today was 13 mL. No signs of retention. -He is typically incontinent of urine. PLAN: -Continue tamsulosin. Assessment & Plan (10/22/2021 12:24 PM CDT): -He is now incontinent of urine. -PVR today was low at 22mL. -He has not symptoms of UTI (Marissa reports he typically has urgency and burning in penis with UTI's.) -He is incontinent of urine most of the time but if given urinal when he needs to void, he will use it. -Recent UTI likely catheter and diarrhea related. PLAN: -Continue flomax. -Encouraged pushing fluids (mostly water). -Good hygeine. -Will f/u in 6 months for further eval. Hypokalemia 07/31/2023 ESBL (extended spectrum beta -lactamase) producing bacteria infection 07/31/2023 Memory loss 07/31/2023
--- OUTSIDE RECORDS SUMMARY | 2024-04-18 12:22 | XMS_ITS ---
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) ACTIVE 06/18/2021 CEREBRAL INFARCTION, UNSPECIFIED (I63.9 - ICD-10-CM) A CTIVE 06/18/2021 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) ACTIVE 06/18/2021 DYSPHAGIA, OROPHARYNGEAL PHASE (R13.12 - ICD-10-CM) AC TIVE 04/10/2022 DIFFICULTY IN WALKING, NOT E LSEWHERE CLASSIFIED (R26.2 - ICD-10-CM) ACTIVE 04/08/2022 WEAKNESS (R53.1 - ICD-10-CM) ACTIVE 04/08/2022 UNSPECIFIED LACK OF COORDINATION (R27.9 - ICD-10-CM) A CTIVE 02/07/2022 UNSTEADINESS ON FEET (R26.81 - ICD-10-CM) ACTIVE 07/06/2021 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 - ICD-10-CM) ACTIVE 07/06/2021 OTHER ABNORMALITIES OF GAIT AND MOBILITY (R26.89 - ICD-10-CM) ACTIVE 07/05/2021 OTHER LACK OF COORDINATION (R27.8 - ICD-10-CM) ACTIVE 06/17/2021 UNSPECIFIED ABNORMALITIES OF GAIT AND MOBILITY (R26.9 - ICD-10-CM) ACTIVE 06/17/2021 PNEUMONIA, UNSPECIFIED ORGANISM (J18.9 - ICD-10-CM) AC TIVE 05/08/2022 PERSONAL HISTORY OF COVID-19 (Z86.16 - ICD-10-CM) ACTI VE 12/27/2021 TYPE 2 DIABETES MELLITUS WIT H UNSPECIFIED COMPLICATIONS (E11.8 - ICD-10-CM) ACTIVE 06/18/2021 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 - ICD-10-CM) ACTI VE 06/18/2021 MALIGNANT NEOPLASM OF PROSTATE (C61 - ICD-10-CM) ACTIV E 06/18/2021 ESSENTIAL (PRIMARY) HYPERTENSION (I10 - ICD-10-CM) ACT JOSE 06/18/2021 NEUROMUSCULAR DYSFUNCTION OF BLADDER, 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) ACTIVE 06/18/2021 UNSPECIFIED MALIGNANT NEOPLA SM OF SKIN, 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) ACTIVE 06/18/2021 CHRONIC ATRIAL FIBRILLATION, UNSPECIFIED (I48.20 - ICD-10-CM) ACTIVE 06/18/2021 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 - ICD-10-CM) ACTIVE 06/18/2021 HYDROCEPHALUS, 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 - ICD-10-CM) ACTIVE 06/18/2021 HYPERLIPIDEMIA, UNSPECIFIED (E78.5 - ICD-10-CM) ACTIVE 06/18/2021 OBSTRUCTIVE SLEEP APNEA (VIJAYA LT) (PEDIATRIC) (G47.33 - ICD-10-CM) ACTIVE 06/18/2021 HEREDITARY AND IDIOPATHIC NE UROPATHY, 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) ACTIVE 06/18/2021 PERIPHERAL VASCULAR DISEASE, UNSPECIFIED (I73.9 - ICD-10-CM) ACTIVE 06/18/2021 ACUTE KIDNEY FAILURE WITH TU BULAR NECROSIS (N17.0 - ICD-10-CM) ACTIVE 06/18/2021 BENIGN PROSTATIC HYPERPLASIA WITH LOWER URINARY TRACT SYMPTOMS (N40.1 - ICD-10-CM) ACTIVE 06/18/2021 PARKINSON'S DISEASE (G20 - ICD-10-CM) ACTIVE 01/2022 ESOPHAGEAL OBSTRUCTION (K22.2 - ICD-10-CM) ACTIVE 06/18/2021 ACUTE EMBOLISM AND THROMBOSI S OF UNSPECIFIED DEEP VEINS OF LOWER EXTREMITY, BILATERAL (I82.403 - ICD-10-CM) ACTIVE 06/18/2021 MAJOR DEPRESSIVE DISORDER, R ECURRENT, UNSPECIFIED (F33.9 - ICD-10-CM) ACTIVE 06/17/2021 Results * Individual Tests: [facility] [place] Performed by: [place] [address] [facility], [address] [place] [id number] Component Value Range Date [facility] [place] * 08/06/2022 01:08 pm EDT * BASIC MET PNL INCL GFR (BMP) Performed by: [place], [place] [id number] [place] [address], [address] [address] Component Value Range Date BUN/CREATININE RATIO 23 6-25 023 02:48 pm EDT GFR- 130 mL/min/1.73 m2 >60 0 07/25/2022 02:48 pm EDT FUJ-XWX-ZMNKYVT 107 mL/min/1.73 m2 >60 07/25/2022 02:48 pm EDT CARBON DIOXIDE (CO2) 30 mEq/L 21-33 023 02:48 pm EDT CHLORIDE 99 mEq/L 98-110 07/25/2022 02:4 8 pm EDT POTASSIUM 4.1 mEq/L 3.5-5.3 07/25/2022 02:4 8 pm EDT SODIUM 139 mEq/L 136-145 07/25/2022 02:4 8 pm EDT BUN (UREA NITROGEN) 16 mg/dL 7-25 07/26/19 23 02:48 pm EDT * Individual Tests: BASIC MET PNL INCL GFR (BMP) / GLYCO-HGBA1C / VITAMIN B12 / VITAMIN D 25-OH TOTAL Performed by: [place], [place] [id number] [place] [address], [address] [address] Component Value Range Date VITAMIN B12 304 pg/mL 211-911 07/25/2022 02:4 8 pm EDT * GLYCO-HGBA1C Performed by: [place], [place] [id number] [place] [address], [address] [facility] [address] Component Value Range Date eAG (Mean Glucose) 77 mg/dL 70-120 02:48 pm EDT * Individual Tests: BASIC MET PNL INCL GFR (BMP) / GLYCO-HGBA1C / VITAMIN B12 / VITAMIN D 25-OH TOTAL Performed by: [address], [place] [id number] Component Value Range Date VITAMIN D 25-OH TOTAL 51 ng/mL 30-100 2022 02:48 pm EDT * GLYCO-HGBA1C Performed by: [address], [place] [id number] Component Value Range Date GLYCOHEMOGLOBIN-HGBA1C 4.3 % 4.1-6.1 07/25 02:48 pm EDT * BASIC MET PNL INCL GFR (BMP) Performed by: [address], [address] [address] Component Value Range Date GLUCOSE 121 mg/dL 07/25/2022 02:4 8 pm EDT CALCIUM 9.2 mg/dL 8.6-10.3 07/25/2022 02:4 8 pm EDT CREATININE 0.7 mg/dL 0.7-1.3 07/25/2022 02:4 8 pm EDT * CBC W/DIFF Performed by: [address], [place] [id number] Component Value Range Date NUCLEATED RBC 0.1 NRBC/100 WBC <1.0 07/09/2022 01:28 pm EDT * CMP-COMPREHENSIVE METABOLIC PNL Performed by: [address], [place] [id number] Component Value Range Date CREATININE 0.8 mg/dL 0.7-1.3 07/09/2022 01:2 8 pm EDT BILIRUBIN, TOTAL 0.8 mg/dL 0.2-1.2 07/09/2022 01:28 pm EDT * LIPID PROFILE w/calc LDL Performed by: [address], [place] [id number] Component Value Range Date CHOLESTEROL 138 mg/dL <200 07/09/2022 01:2 8 pm EDT TRIGLYCERIDE 66 mg/dL <150 07/09/2022 01:2 8 pm EDT HDL 37 mg/dL >40 07/09/2022 01:2 8 pm EDT * CMP-COMPREHENSIVE METABOLIC PNL Performed by: [address], [place] [id number] Component Value Range Date CALCIUM 9.0 mg/dL 8.6-10.3 07/09/2022 01:2 8 pm EDT GLUCOSE 104 07/09/2022 01:2 8 pm EDT * CBC W/DIFF Performed by: [address], [place] [address] Component Value Range Date MPV 10.3 fL 6.5-12.0 07/09/2022 01:2 8 pm EDT * CMP-COMPREHENSIVE METABOLIC PNL Performed by: [address], [place] [address] Component Value Range Date A/G RATIO 1.0 0.8-2.0 07/09/2022 01:2 8 pm EDT * LIPID PROFILE w/calc LDL Performed by: [address], [place] [id number] Component Value Range Date VLDLc 13 mg/dL 5-40 07/09/2022 01:2 8 pm EDT * CBC W/DIFF Performed by: [address], [place] [address] Component Value Range Date ANISOCYTOSIS 1+ NEGATIVE 07/09/2022 01:2 8 pm EDT * LIPID PROFILE w/calc LDL Performed by: [address], [place] [address] Component Value Range Date LDL CALCULATED 88 mg/dL <100 07/09/2022 01 :28 pm EDT LDLc/HDL RATIO 2.4 <4:1 07/09/2022 01 :28 pm EDT * CBC W/DIFF Performed by: [address], [place] [address] Component Value Range Date RBC 3.99 M/cmm 4.00-6.60 07/09/2022 01:2 8 pm EDT MCHC 32.9 g/dL 31.0-36.5 07/09/2022 01:2 8 pm EDT MCH 29.4 pg 26.0-35.0 07/09/2022 01:2 8 pm EDT HEMATOCRIT 35.6 % 42.0-54.0 07/09/2022 01:2 8 pm EDT WBC 6.9 K/cmm 4.5-10.8 07/09/2022 01:2 8 pm EDT * CMP-COMPREHENSIVE METABOLIC PNL Performed by: [address], [place] [id number] Component Value Range Date ALT (SGPT) 12 IU/L 4-55 07/09/2022 01:2 8 pm EDT * CBC W/DIFF Performed by: [address], [place] [id number] Component Value Range Date PLATELET 146 K/cmm 150-450 07/09/2022 01:2 8 pm EDT * CMP-COMPREHENSIVE METABOLIC PNL Performed by: [address], [place] [id number] Component Value Range Date AST (SGOT) 16 IU/L 4-40 07/09/2022 01:2 8 pm EDT SODIUM 140 mEq/L 136-145 07/09/2022 01:2 8 pm EDT * CBC W/DIFF Performed by: [address], [place] [id number] Component Value Range Date HEMOGLOBIN 11.7 g/dL 14.0-18.0 07/09/2022 01:2 8 pm EDT * CMP-COMPREHENSIVE METABOLIC PNL Performed by: [address], [place] [id number] Component Value Range Date POTASSIUM 4.0 mEq/L 3.5-5.3 07/09/2022 01:2 8 pm EDT CHLORIDE 102 mEq/L 98-110 07/09/2022 01:2 8 pm EDT CARBON DIOXIDE (CO2) 30 mEq/L 21-33 023 01:28 pm EDT BUN (UREA NITROGEN) 22 mg/dL 7-25 07/10/19 23 01:28 pm EDT ALBUMIN 3.0 g/dL 3.5-5.5 07/09/2022 01:2 8 pm EDT PROTEIN, TOTAL 6.0 g/dL 6.0-8.3 07/09/2022 01 :28 pm EDT * CBC W/DIFF Performed by: [address], [place] [address] Component Value Range Date NEUTROPHILS 53.4 % 40.0-80.0 07/09/2022 01:2 8 pm EDT BASO (ABSOLUTE) 0.10 K/uL 0.00-0.30 07/09/2022 0 1:28 pm EDT * CMP-COMPREHENSIVE METABOLIC PNL Performed by: [address], [place] [address] Component Value Range Date ALKALINE PHOS 68 IU/L 34-136 07/09/2022 01: 28 pm EDT * CBC W/DIFF Performed by: [address], [place] [address] Component Value Range Date RDW 17.6 % 11.0-16.0 07/09/2022 01:2 8 pm EDT * CMP-COMPREHENSIVE METABOLIC PNL Performed by: [address], [place] [address] Component Value Range Date WZX-LVE-NITOFCW 92 mL/min/1.73 m2 >60 07/09/2022 01:28 pm EDT GFR- 111 mL/min/1.73 m2 >60 0 07/09/2022 01:28 pm EDT * CBC W/DIFF Performed by: [address], [place] [address] Component Value Range Date MCV 89.3 fL 80.0-100.0 07/09/2022 01:2 8 pm EDT LYMPHS (ABSOLUTE) 2.00 K/uL 0.90-5.50 07/09/2022 01:28 pm EDT BASO 1.0 % 0.0-2.0 07/09/2022 01:2 8 pm EDT EOS 5.8 % 0.0-8.0 07/09/2022 01:2 8 pm EDT MONOCYTES 10.6 % 2.0-12.0 07/09/2022 01:2 8 pm EDT LYMPHS 29.2 % 13.0-48.0 07/09/2022 01:2 8 pm EDT NEUTS (ABSOLUTE) 3.70 K/uL 1.50-7.60 07/09/2022 01:28 pm EDT EOS (ABSOLUTE) 0.40 K/uL 0.20-0.80 07/09/2022 01 :28 pm EDT MONOCYTES (ABSOLUTE) 0.70 K/uL 0.15-1.10 023 01:28 pm EDT * CMP-COMPREHENSIVE METABOLIC PNL Performed by: [address], [place] [address] Component Value Range Date BUN/CREATININE RATIO 28 6-25 023 01:28 pm EDT * UA W/CULTURE IF INDICATED Performed by: [address], [place] [address] Component Value Range Date UA TO CX TRIGGER CULTURE INDICATED 2022 03:33 pm EDT * Individual Tests: UA W/CULTURE IF INDICATED / CULTURE, URINE Performed by: [address], [place] [id number] Component Value Range Date CULTURE, URINE . 06/21/2022 03 :33 pm EDT * UA W/CULTURE IF INDICATED Performed by: [address], [place] [address] Component Value Range Date NITRITE,UR NEGATIVE NEGATIVE 06/21/2022 03:3 3 pm EDT COLOR YELLOW YELLOW 06/21/2022 03:3 3 pm EDT LEUKOCYTES,UR NEGATIVE NEGATIVE 06/21/2022 03: 33 pm EDT WBC,UR 21-50 /HPF <6 06/21/2022 03:3 3 pm EDT BLOOD,UR 3+ NEGATIVE 06/21/2022 03:3 3 pm EDT PROTEIN,UR NEGATIVE NEGATIVE 06/21/2022 03:3 3 pm EDT HYALINE CASTS NEGATIVE NEGATIVE 06/21/2022 03: 33 pm EDT EPITHELIAL CELL FEW NEGATIVE 06/21/2022 0 3:33 pm EDT BACTERIA,UR NEGATIVE NEGATIVE 06/21/2022 03:3 3 pm EDT RBC,UR >50 /HPF <6 06/21/2022 03:3 3 pm EDT GLUCOSE,UR NEGATIVE NEGATIVE 06/21/2022 03:3 3 pm EDT UROBILINOGEN,UR 2+ NEGATIVE 06/21/2022 0 3:33 pm EDT SPECIFIC GRAVITY 1.010 1.001-1.030 06/21/2022 03:33 pm EDT PH, URINE 7.0 5.0-8.5 06/21/2022 03:3 3 pm EDT KETONES,UR NEGATIVE NEGATIVE 06/21/2022 03:3 3 pm EDT CLARITY CLEAR CLEAR 06/21/2022 03:3 3 pm EDT BILIRUBIN,UR NEGATIVE NEGATIVE 06/21/2022 03:3 3 pm EDT * CMP-COMPREHENSIVE METABOLIC PNL Performed by: [address], [address] [address] Component Value Range Date BUN/CREATININE RATIO 23 6-25 023 12:54 pm EDT * CBC W/DIFF Performed by: [address], [address] [address] Component Value Range Date MONOCYTES (ABSOLUTE) 0.60 K/uL 0.15-1.10 023 12:54 pm EDT EOS 4.6 % 0.0-8.0 06/21/2022 12:5 4 pm EDT EOS (ABSOLUTE) 0.30 K/uL 0.20-0.80 06/21/2022 12 :54 pm EDT NEUTS (ABSOLUTE) 3.20 K/uL 1.50-7.60 06/21/2022 12:54 pm EDT LYMPHS 29.4 % 13.0-48.0 06/21/2022 12:5 4 pm EDT MONOCYTES 9.5 % 2.0-12.0 06/21/2022 12:5 4 pm EDT BASO 1.4 % 0.0-2.0 06/21/2022 12:5 4 pm EDT LYMPHS (ABSOLUTE) 1.70 K/uL 0.90-5.50 06/21/2022 12:54 pm EDT MCV 88.1 fL 80.0-100.0 06/21/2022 12:5 4 pm EDT * CMP-COMPREHENSIVE METABOLIC PNL Performed by: [address], [place] [id number] Component Value Range Date IJB-SIG-JHJGHAG 78 mL/min/1.73 m2 >60 06/21/2022 12:54 pm EDT * CBC W/DIFF Performed by: [address], [place] [address] Component Value Range Date BASO (ABSOLUTE) 0.10 K/uL 0.00-0.30 06/21/2022 1 2:54 pm EDT * CMP-COMPREHENSIVE METABOLIC PNL Performed by: [address], [place] [address] Component Value Range Date GFR- 95 mL/min/1.73 m2 >60 12:54 pm EDT ALKALINE PHOS 62 IU/L 34-136 06/21/2022 12: 54 pm EDT * CBC W/DIFF Performed by: [address], [place] [address] Component Value Range Date RDW 18.7 % 11.0-16.0 06/21/2022 12:5 4 pm EDT NEUTROPHILS 55.1 % 40.0-80.0 06/21/2022 12:5 4 pm EDT * CMP-COMPREHENSIVE METABOLIC PNL Performed by: [address], [place] [address] Component Value Range Date ALBUMIN 3.1 g/dL 3.5-5.5 06/21/2022 12:5 4 pm EDT PROTEIN, TOTAL 5.8 g/dL 6.0-8.3 06/21/2022 12 :54 pm EDT BUN (UREA NITROGEN) 16 mg/dL 7-25 06/22/19 23 12:54 pm EDT CARBON DIOXIDE (CO2) 29 mEq/L 21-33 023 12:54 pm EDT CHLORIDE 105 mEq/L 98-110 06/21/2022 12:5 4 pm EDT POTASSIUM 4.2 mEq/L 3.5-5.3 06/21/2022 12:5 4 pm EDT * CBC W/DIFF Performed by: [address], [place] [address] Component Value Range Date HEMOGLOBIN 11.0 g/dL 12.0-16.0 06/21/2022 12:5 4 pm EDT * CMP-COMPREHENSIVE METABOLIC PNL Performed by: [address], [place] [id number] Component Value Range Date SODIUM 142 mEq/L 136-145 06/21/2022 12:5 4 pm EDT AST (SGOT) 13 IU/L 4-40 06/21/2022 12:5 4 pm EDT * CBC W/DIFF Performed by: [address], [place] [address] Component Value Range Date PLATELET 148 K/cmm 150-450 06/21/2022 12:5 4 pm EDT * CMP-COMPREHENSIVE METABOLIC PNL Performed by: [address], [place] [address] Component Value Range Date ALT (SGPT) 9 IU/L 4-55 06/21/2022 12:5 4 pm EDT * CBC W/DIFF Performed by: [address], [place] [id number] Component Value Range Date WBC 5.8 K/cmm 4.5-10.8 06/21/2022 12:5 4 pm EDT HEMATOCRIT 33.3 % 36.0-48.0 06/21/2022 12:5 4 pm EDT MCH 29.2 pg 26.0-35.0 06/21/2022 12:5 4 pm EDT RBC 3.78 M/cmm 3.90-5.40 06/21/2022 12:5 4 pm EDT MCHC 33.1 g/dL 31.0-36.5 06/21/2022 12:5 4 pm EDT * CMP-COMPREHENSIVE METABOLIC PNL Performed by: [address], [place] [id number] Component Value Range Date CREATININE 0.7 mg/dL 0.6-1.2 06/21/2022 12:5 4 pm EDT * CBC W/DIFF Performed by: [address], [place] [address] Component Value Range Date NUCLEATED RBC 0.1 NRBC/100 WBC <1.0 06/21/2022 12:54 pm EDT * CMP-COMPREHENSIVE METABOLIC PNL Performed by: [address], [address] [address] Component Value Range Date GLUCOSE 118 06/21/2022 12:5 4 pm EDT CALCIUM 8.7 mg/dL 8.6-10.3 06/21/2022 12:5 4 pm EDT BILIRUBIN, TOTAL 1.3 mg/dL 0.2-1.2 06/21/2022 12:54 pm EDT * Individual Tests: CMP-COMPREHENSIVE METABOLIC PNL / CBC W/DIFF / B-NATRIURETIC PEP (BNP) Performed by: [address], [address] [address] Component Value Range Date B-NATRIURETIC PEP (BNP) 616 pg/mL 0-100 06/08 12:54 pm EDT * CBC W/DIFF Performed by: [address], [address] [address] Component Value Range Date MPV 10.2 fL 6.5-12.0 06/21/2022 12:5 4 pm EDT * CMP-COMPREHENSIVE METABOLIC PNL Performed by: [address], [address] [address] Component Value Range Date A/G RATIO 1.1 0.8-2.0 06/21/2022 12:5 4 pm EDT * CBC W/DIFF Performed by: [address], [address] [address] Component Value Range Date ANISOCYTOSIS 1+ NEGATIVE 06/21/2022 12:5 4 pm EDT * BASIC MET PNL INCL GFR (BMP) Performed by: [address], [address] [address] Component Value Range Date CALCIUM 8.6 mg/dL 8.6-10.3 05/21/2022 07:0 3 pm EDT GLUCOSE 112 05/21/2022 07:0 3 pm EDT CREATININE 0.8 mg/dL 0.7-1.3 05/21/2022 07:0 3 pm EDT SODIUM 142 mEq/L 136-145 05/21/2022 07:0 3 pm EDT POTASSIUM 3.5 mEq/L 3.5-5.3 05/21/2022 07:0 3 pm EDT CHLORIDE 101 mEq/L 98-110 05/21/2022 07:0 3 pm EDT CARBON DIOXIDE (CO2) 31 mEq/L - 023 07:03 pm EDT BUN (UREA NITROGEN) 12 mg/dL 7-05/22/19 23 07:03 pm EDT GFR- 111 mL/min/1.73 m2 >60 0 05/21/2022 07:03 pm EDT [id number]-JEW-[id number] 92 mL/min/1.73 m2 >60 05/21/2022 07:03 pm EDT BUN/CREATININE RATIO 15 6-25 023 07:03 pm EDT * Individual Tests: B-NATRIURETIC PEP (BNP) Performed by: [place], [place] [id number] [place] [address] LN, [address] [facility] [address] Component Value Range Date B-NATRIURETIC PEP (BNP) 527 pg/mL 0-100 04/11 01:25 pm EST * BASIC MET PNL INCL GFR (BMP) Performed by: [place], [place] [id number] [place] [address] LN, [address] [facility] [address] Component Value Range Date CREATININE 0.8 mg/dL 0.6-1.2 04/29/2022 01:1 7 pm EST GLUCOSE 129 04/29/2022 01:1 7 pm EST CALCIUM 8.8 mg/dL 8.6-10.3 04/29/2022 01:1 7 pm EST BUN/CREATININE RATIO 20 6- 023 01:17 pm EST GFR- 81 mL/min/1.73 m2 >60 01:17 pm EST [id number]-IHJ-BQIMBOL 67 mL/min/1.73 m2 >60 04/29/2022 01:17 pm EST BUN (UREA NITROGEN) 16 mg/dL 7-04/29/19 23 01:17 pm EST CARBON DIOXIDE (CO2) 30 mEq/L - 023 01:17 pm EST CHLORIDE 100 mEq/L 98-110 04/29/2022 01:1 7 pm EST POTASSIUM 3.7 mEq/L 3.5-5.3 04/29/2022 01:1 7 pm EST SODIUM 142 mEq/L 136-145 04/29/2022 01:1 7 pm EST * BASIC MET PNL INCL GFR (BMP) Performed by: [address], [address] [address] Component Value Range Date SODIUM 140 mEq/L 136-145 04/26/2022 04:3 1 pm EST POTASSIUM 3.5 mEq/L 3.5-5.3 04/26/2022 04:3 1 pm EST CHLORIDE 95 mEq/L 98-110 04/26/2022 04:3 1 pm EST CARBON DIOXIDE (CO2) 38 mEq/L - 023 04:31 pm EST BUN (UREA NITROGEN) 17 mg/dL -04/26/19 04:31 pm EST [id number]-BXO-[id number] 92 mL/min/1.73 m2 >60 04/26/2022 04:31 pm EST GFR- 111 mL/min/1.73 m2 >60 0 04/26/2022 04:31 pm EST BUN/CREATININE RATIO 21 - 023 04:31 pm EST GLUCOSE 114 04/26/2022 04:3 1 pm EST CALCIUM 8.4 mg/dL 8.6-10.3mg/dL 04/26/2022 04: 31 pm EST CREATININE 0.8 mg/dL 0.7-1.3 04/26/2022 04:3 1 pm EST * Individual Tests: BASIC MET PNL INCL GFR (BMP) / ProBNP Performed by: [address], [address] [id number] Component Value Range Date ProBNP 7805 pg/mL 04/26/2022 04:3 1 pm EST * CMP-COMPREHENSIVE METABOLIC PNL Performed by: [address], [address] [address] Component Value Range Date CREATININE 0.7 mg/dL 0.6-1.2 04/19/2022 02:0 7 pm EST BILIRUBIN, TOTAL 1.1 mg/dL 0.2-1.2 04/19/2022 02:07 pm EST CALCIUM 9.0 mg/dL 8.6-10.3mg/dL 04/19/2022 02: 07 pm EST GLUCOSE 192 04/19/2022 02:0 7 pm EST A/G RATIO 1.0 0.8-2.0 04/19/2022 02:0 7 pm EST BUN/CREATININE RATIO 20 6-25 023 02:07 pm EST PROTEIN, TOTAL 6.4 g/dL 6.0-8.3 04/19/2022 02 :07 pm EST ALBUMIN 3.2 g/dL 3.5-5.5 04/19/2022 02:0 7 pm EST ALKALINE PHOS 67 IU/L 34-136 04/19/2022 02: 07 pm EST GFR- 95 mL/min/1.73 m2 >60 02:07 pm EST [id number] 79 mL/min/1.73 m2 >60 04/19/2022 02:07 pm EST ALT (SGPT) 11 IU/L 4-55 04/19/2022 02:0 7 pm EST AST (SGOT) 17 IU/L 4-40 04/19/2022 02:0 7 pm EST BUN (UREA NITROGEN) 14 mg/dL 7-25 04/19/19 23 02:07 pm EST CARBON DIOXIDE (CO2) 31 mEq/L 21-33 023 02:07 pm EST CHLORIDE 93 mEq/L 98-110 04/19/2022 02:0 7 pm EST POTASSIUM 3.6 mEq/L 3.5-5.3 04/19/2022 02:0 7 pm EST SODIUM 137 mEq/L 136-145 04/19/2022 02:0 7 pm EST * Individual Tests: UA W/CULTURE IF INDICATED / CULTURE, URINE Performed by: [address], [address] [id number] Component Value Range Date CULTURE, URINE . 04/14/2022 03 :08 pm EST * UA W/CULTURE IF INDICATED Performed by: [address], [address] [id number] Component Value Range Date UA TO CX TRIGGER CULTURE INDICATED 2022 03:08 pm EST GLUCOSE,UR NEGATIVE NEGATIVE 04/14/2022 03:0 8 pm EST SPECIFIC GRAVITY 1.015 1.001-1.030 04/14/2022 03:08 pm EST MUCOUS PRESENT ABSENT 04/14/2022 03:0 8 pm EST UROBILINOGEN,UR NEGATIVE NEGATIVE 04/14/2022 0 3:08 pm EST PROTEIN,UR 2+ NEGATIVE 04/14/2022 03:0 8 pm EST RBC,UR >50 /HPF <6 04/14/2022 03:0 8 pm EST HYALINE CASTS NEGATIVE NEGATIVE 04/14/2022 03: 08 pm EST EPITHELIAL CELL NEGATIVE NEGATIVE 04/14/2022 0 3:08 pm EST BLOOD,UR 3+ NEGATIVE 04/14/2022 03:0 8 pm EST WBC,UR 21-50 /HPF <6 04/14/2022 03:0 8 pm EST LEUKOCYTES,UR NEGATIVE NEGATIVE 04/14/2022 03: 08 pm EST COLOR MELISSA YELLOW 04/14/2022 03:0 8 pm EST NITRITE,UR NEGATIVE NEGATIVE 04/14/2022 03:0 8 pm EST CLARITY CLEAR CLEAR 04/14/2022 03:0 8 pm EST BILIRUBIN,UR NEGATIVE NEGATIVE 04/14/2022 03:0 8 pm EST CALCIUM OXALATE CRYSTAL PRESENT ABSENT 07/2022 03:08 pm EST KETONES,UR NEGATIVE NEGATIVE 04/14/2022 03:0 8 pm EST BACTERIA,UR FEW NEGATIVE 04/14/2022 03:0 8 pm EST PH, URINE 7.0 5.0-8.5 04/14/2022 03:0 8 pm EST * CMP-COMPREHENSIVE METABOLIC PNL Performed by: [address], [address] [id number] Component Value Range Date GLUCOSE 140 04/11/2022 03:5 1 pm EST CREATININE 0.6 mg/dL 0.7-1.3 04/11/2022 03:5 1 pm EST * CBC W/DIFF Performed by: [address], [address] [id number] Component Value Range Date NUCLEATED RBC 0.1 NRBC/100 WBC <1.0 04/11/2022 03:51 pm EST * CMP-COMPREHENSIVE METABOLIC PNL Performed by: [address], [address] [id number] Component Value Range Date CALCIUM 8.8 mg/dL 8.6-10.3mg/dL 04/11/2022 03: 51 pm EST BILIRUBIN, TOTAL 1.0 mg/dL 0.2-1.2 04/11/2022 03:51 pm EST BUN/CREATININE RATIO 23 6-25 023 03:51 pm EST A/G RATIO 1.2 0.8-2.0 04/11/2022 03:5 1 pm EST * GLYCO-HGBA1C Performed by: [address], [place] [id number] Component Value Range Date GLYCOHEMOGLOBIN-HGBA1C 7.2 % 4.1-6.1 04/11 03:51 pm EST * CBC W/DIFF Performed by: [address], [place] [id number] Component Value Range Date MPV 10.4 fL 6.5-12.0 04/11/2022 03:5 1 pm EST * GLYCO-HGBA1C Performed by: [address], [place] [id number] Component Value Range Date eAG (Mean Glucose) 160 mg/dL <136 03:51 pm EST * Individual Tests: CMP-COMPREHENSIVE METABOLIC PNL / GLYCO-HGBA1C / CBC W/DIFF / VITAMIN D 25-OH TOTAL / UTO-SPECIMEN NOT COLLECTED Performed by: [address], [place] [id number] Component Value Range Date VITAMIN D, 25-OH TOTAL 26 SEE BELOW 04/11 03:51 pm EST * UTO-SPECIMEN NOT COLLECTED Performed by: [address], [place] [id number] Component Value Range Date NOTIFIED NURSE(NAME): NURSE UNSPECIFIED 0 04/11/2022 03:51 pm EST LAB WILL REDRAW (DATE): NURSE TO RESCHEDULE 04/11/2022 03:51 pm EST TESTS ORDERED: UA W/CULTURE IF INDICATED 04/11/2022 03:51 pm EST * CMP-COMPREHENSIVE METABOLIC PNL Performed by: [address], [address] [id number] Component Value Range Date SODIUM 137 mEq/L 136-145 04/11/2022 03:5 1 pm EST POTASSIUM 3.4 mEq/L 3.5-5.3 04/11/2022 03:5 1 pm EST * CBC W/DIFF Performed by: [address], [place] [id number] Component Value Range Date HEMOGLOBIN 11.9 g/dL 14.0-18.0 04/11/2022 03:5 1 pm EST * CMP-COMPREHENSIVE METABOLIC PNL Performed by: [address], [place] [id number] Component Value Range Date BUN (UREA NITROGEN) 14 mg/dL 7-25 04/11/19 23 03:51 pm EST CARBON DIOXIDE (CO2) 41 mEq/L 21-33 023 03:51 pm EST CHLORIDE 87 mEq/L 98-110 04/11/2022 03:5 1 pm EST * CBC W/DIFF Performed by: [address], [place] [id number] Component Value Range Date RBC 4.28 M/cmm 4.00-6.60 04/11/2022 03:5 1 pm EST MCHC 30.8 g/dL 31.0-36.5 04/11/2022 03:5 1 pm EST MCH 27.8 pg 26.0-35.0 04/11/2022 03:5 1 pm EST HEMATOCRIT 38.7 % 42.0-54.0 04/11/2022 03:5 1 pm EST * CMP-COMPREHENSIVE METABOLIC PNL Performed by: [address], [place] [id number] Component Value Range Date AST (SGOT) 17 IU/L 4-40 04/11/2022 03:5 1 pm EST * CBC W/DIFF Performed by: [address], [place] [id number] Component Value Range Date PLATELET 163 K/cmm 150-450 04/11/2022 03:5 1 pm EST * CMP-COMPREHENSIVE METABOLIC PNL Performed by: [address], [place] [id number] Component Value Range Date ALT (SGPT) 8 IU/L 4-55 04/11/2022 03:5 1 pm EST * CBC W/DIFF Performed by: [address], [place] [id number] Component Value Range Date WBC 6.9 K/cmm 4.5-10.8 04/11/2022 03:5 1 pm EST * CMP-COMPREHENSIVE METABOLIC PNL Performed by: [address], [place] [id number] Component Value Range Date GFR- 155 mL/min/1.73 m2 >60 0 04/11/2022 03:51 pm EST [id number] 128 mL/min/1.73 m2 >60 04/11/2022 03:51 pm EST * CBC W/DIFF Performed by: [address], [place] [id number] Component Value Range Date BASO (ABSOLUTE) 0.10 K/uL 0.00-0.30 04/11/2022 0 3:51 pm EST RDW 15.3 % 11.0-16.0 04/11/2022 03:5 1 pm EST * CMP-COMPREHENSIVE METABOLIC PNL Performed by: [address], [place] [id number] Component Value Range Date ALKALINE PHOS 60 IU/L 34-136 04/11/2022 03: 51 pm EST * CBC W/DIFF Performed by: [address], [place] [id number] Component Value Range Date NEUTROPHILS 67.5 % 40.0-80.0 04/11/2022 03:5 1 pm EST * CMP-COMPREHENSIVE METABOLIC PNL Performed by: [address], [place] [id number] Component Value Range Date ALBUMIN 3.2 g/dL 3.5-5.5 04/11/2022 03:5 1 pm EST PROTEIN, TOTAL 5.9 g/dL 6.0-8.3 04/11/2022 03 :51 pm EST * CBC W/DIFF Performed by: [address], [place] [address] Component Value Range Date MCV 90.3 fL 80.0-100.0 04/11/2022 03:5 1 pm EST LYMPHS (ABSOLUTE) 1.40 K/uL 0.90-5.50 04/11/2022 03:51 pm EST MONOCYTES 8.3 % 2.0-12.0 04/11/2022 03:5 1 pm EST BASO 0.9 % 0.0-2.0 04/11/2022 03:5 1 pm EST LYMPHS 20.0 % 13.0-48.0 04/11/2022 03:5 1 pm EST EOS (ABSOLUTE) 0.20 K/uL 0.20-0.80 04/11/2022 03 :51 pm EST EOS 3.3 % 0.0-8.0 04/11/2022 03:5 1 pm EST NEUTS (ABSOLUTE) 4.70 K/uL 1.50-7.60 04/11/2022 03:51 pm EST MONOCYTES (ABSOLUTE) 0.60 K/uL 0.15-1.10 023 03:51 pm EST * CMP-COMPREHENSIVE METABOLIC PNL Performed by: [place] [address] [facility], [place] [address] [facility] [address] Component Value Range Date ALBUMIN 3.6 g/dL 3.5-5.5 03/18/2022 05:2 2 pm EST ALKALINE PHOS 60 IU/L 34-136 03/18/2022 05: 22 pm EST PROTEIN, TOTAL 6.2 g/dL 6.0-8.3 03/18/2022 05 :22 pm EST ZYK-XNH-[id number] 107 mL/min/1.73 m2 >60 03/18/2022 05:22 pm EST GFR- 130 mL/min/1.73 m2 >60 0 03/18/2022 05:22 pm EST ALT (SGPT) 11 IU/L 4-55 03/18/2022 05:2 2 pm EST AST (SGOT) 13 IU/L 4-40 03/18/2022 05:2 2 pm EST CHLORIDE 98 mEq/L 98-110 03/18/2022 05:2 2 pm EST BUN (UREA NITROGEN) 12 mg/dL 7-25 03/18/19 23 05:22 pm EST CARBON DIOXIDE (CO2) 32 mEq/L 21-33 023 05:22 pm EST POTASSIUM 3.8 mEq/L 3.5-5.3 03/18/2022 05:2 2 pm EST SODIUM 138 mEq/L 136-145 03/18/2022 05:2 2 pm EST A/G RATIO 1.4 0.8-2.0 03/18/2022 05:2 2 pm EST BUN/CREATININE RATIO 17 6-25 023 05:22 pm EST BILIRUBIN, TOTAL 0.7 mg/dL 0.2-1.2 03/18/2022 05:22 pm EST CALCIUM 8.9 mg/dL 8.6-10.3mg/dL 03/18/2022 05: 22 pm EST CREATININE 0.7 mg/dL 0.7-1.3mg/dL 03/18/2022 05:2 2 pm EST GLUCOSE 158 03/18/2022 05:2 2 pm EST * CMP-COMPREHENSIVE METABOLIC PNL Performed by: [address], [address] [address] Component Value Range Date CREATININE 0.6 mg/dL 0.6-1.2mg/dL 03/07/2022 12:1 9 pm EST CALCIUM 8.7 mg/dL 8.6-10.3mg/dL 03/07/2022 12: 19 pm EST GLUCOSE 134 03/07/2022 12:1 9 pm EST BILIRUBIN, TOTAL 0.6 mg/dL 0.2-1.2 03/07/2022 12:19 pm EST * CBC W/DIFF Performed by: [address], [address] [address] Component Value Range Date MPV 10.1 fL 6.5-12.0 03/07/2022 12:1 9 pm EST * GLYCO-HGBA1C Performed by: [address], [address] [address] Component Value Range Date GLYCOHEMOGLOBIN-HGBA1C 6.5 % 4.1-6.1 03/07 12:19 pm EST * CMP-COMPREHENSIVE METABOLIC PNL Performed by: [address], [address] [address] Component Value Range Date BUN/CREATININE RATIO 20 6-25 022 12:19 pm EST A/G RATIO 1.3 0.8-2.0 03/07/2022 12:1 9 pm EST * GLYCO-HGBA1C Performed by: [address], [place] [address] Component Value Range Date eAG (Mean Glucose) 140 mg/dL <136 12:19 pm EST * CMP-COMPREHENSIVE METABOLIC PNL Performed by: [address], [place] [address] Component Value Range Date POTASSIUM 4.2 mEq/L 3.5-5.3 03/07/2022 12:1 9 pm EST SODIUM 136 mEq/L 136-145 03/07/2022 12:1 9 pm EST * CBC W/DIFF Performed by: [address], [place] [address] Component Value Range Date HEMOGLOBIN 11.4 g/dL 12.0-16.0 03/07/2022 12:1 9 pm EST * CMP-COMPREHENSIVE METABOLIC PNL Performed by: [address], [place] [address] Component Value Range Date BUN (UREA NITROGEN) 12 mg/dL 7-25 03/07/20 22 12:19 pm EST CARBON DIOXIDE (CO2) 30 mEq/L 21-33 022 12:19 pm EST CHLORIDE 98 mEq/L 98-110 03/07/2022 12:1 9 pm EST * CBC W/DIFF Performed by: [address], [place] [address] Component Value Range Date RBC 3.87 M/cmm 3.90-5.40 03/07/2022 12:1 9 pm EST HEMATOCRIT 35.5 % 36.0-48.0 03/07/2022 12:1 9 pm EST MCH 29.5 pg 26.0-35.0 03/07/2022 12:1 9 pm EST MCHC 32.2 g/dL 31.0-36.5 03/07/2022 12:1 9 pm EST PLATELET 188 K/cmm 150-450 03/07/2022 12:1 9 pm EST * CMP-COMPREHENSIVE METABOLIC PNL Performed by: [address], [place] [address] Component Value Range Date ALBUMIN 3.4 g/dL 3.5-5.5 03/07/2022 12:1 9 pm EST * CBC W/DIFF Performed by: [address], [place] [address] Component Value Range Date WBC 7.1 K/cmm 4.5-10.8 03/07/2022 12:1 9 pm EST * CMP-COMPREHENSIVE METABOLIC PNL Performed by: [address], [place] [address] Component Value Range Date ALT (SGPT) 10 IU/L 4-55 03/07/2022 12:1 9 pm EST GFR- 114 mL/min/1.73 m2 >60 1 12:19 pm EST * CBC W/DIFF Performed by: [address], [place] [address] Component Value Range Date RDW 14.2 % 11.0-16.0 03/07/2022 12:1 9 pm EST BASO (ABSOLUTE) 0.10 K/uL 0.00-0.30 03/07/2022 1 2:19 pm EST * CMP-COMPREHENSIVE METABOLIC PNL Performed by: [address], [place] [address] Component Value Range Date BVY-IVA-[id number] 94 mL/min/1.73 m2 >60 03/07/2022 12:19 pm EST * CBC W/DIFF Performed by: [address], [place] [address] Component Value Range Date NEUTROPHILS 54.8 % 40.0-80.0 03/07/2022 12:1 9 pm EST * CMP-COMPREHENSIVE METABOLIC PNL Performed by: [address], [place] [address] Component Value Range Date PROTEIN, TOTAL 6.1 g/dL 6.0-8.3 03/07/2022 12 :19 pm EST ALKALINE PHOS 62 IU/L 34-136 03/07/2022 12: 19 pm EST AST (SGOT) 14 IU/L 4-40 03/07/2022 12:1 9 pm EST * CBC W/DIFF Performed by: [facility], [place] [id number] [place] [address], [address] [address] Component Value Range Date MONOCYTES (ABSOLUTE) 0.60 K/uL 0.15-1.10 022 12:19 pm EST EOS (ABSOLUTE) 0.30 K/uL 0.20-0.80 03/07/2022 12 :19 pm EST NEUTS (ABSOLUTE) 3.90 K/uL 1.50-7.60 03/07/2022 12:19 pm EST EOS 4.3 % 0.0-8.0 03/07/2022 12:1 9 pm EST LYMPHS 31.6 % 13.0-48.0 03/07/2022 12:1 9 pm EST MONOCYTES 8.0 % 2.0-12.0 03/07/2022 12:1 9 pm EST BASO 1.3 % 0.0-2.0 03/07/2022 12:1 9 pm EST LYMPHS (ABSOLUTE) 2.30 K/uL 0.90-5.50 03/07/2022 12:19 pm EST MCV 91.7 fL 80.0-100.0 03/07/2022 12:1 9 pm EST * CBC W/DIFF Performed by: [address], [address] [address] Component Value Range Date MCV 91.2 fL 80.0-100.0 12/07/2021 01:4 4 pm EDT LYMPHS (ABSOLUTE) 2.40 K/uL 0.90-5.50 12/07/2021 01:44 pm EDT BASO 0.2 % 0.0-2.0 12/07/2021 01:4 4 pm EDT MONOCYTES 8.4 % 2.0-12.0 12/07/2021 01:4 4 pm EDT LYMPHS 33.7 % 13.0-48.0 12/07/2021 01:4 4 pm EDT NEUTS (ABSOLUTE) 3.70 K/uL 1.50-7.60 12/07/2021 01:44 pm EDT EOS 5.4 % 0.0-8.0 12/07/2021 01:4 4 pm EDT EOS (ABSOLUTE) 0.40 K/uL 0.20-0.80 12/07/2021 01 :44 pm EDT MONOCYTES (ABSOLUTE) 0.60 K/uL 0.15-1.10 022 01:44 pm EDT * CMP-COMPREHENSIVE METABOLIC PNL Performed by: [address], [address] [address] Component Value Range Date AST (SGOT) 13 IU/L 4-40 12/07/2021 01:4 4 pm EDT ALBUMIN 3.3 g/dL 3.5-5.5 12/07/2021 01:4 4 pm EDT PROTEIN, TOTAL 5.8 g/dL 6.0-8.3 12/07/2021 01 :44 pm EDT ALKALINE PHOS 53 IU/L 34-136 12/07/2021 01: 44 pm EDT * CBC W/DIFF Performed by: [address], [place] [id number] Component Value Range Date NEUTROPHILS 52.3 % 40.0-80.0 12/07/2021 01:4 4 pm EDT * CMP-COMPREHENSIVE METABOLIC PNL Performed by: [address], [address] [address] Component Value Range Date JCC-LAY-CTJOSHT 79 mL/min/1.73 m2 >60 12/07/2021 01:44 pm EDT * CBC W/DIFF Performed by: [address], [address] [address] Component Value Range Date RDW 14.4 % 11.0-16.0 12/07/2021 01:4 4 pm EDT * CMP-COMPREHENSIVE METABOLIC PNL Performed by: [address], [address] [address] Component Value Range Date GFR- 95 mL/min/1.73 m2 >60 01:44 pm EDT ALT (SGPT) 8 IU/L 4-55 12/07/2021 01:4 4 pm EDT * CBC W/DIFF Performed by: [address], [address] [address] Component Value Range Date WBC 7.0 K/cmm 4.5-10.8 12/07/2021 01:4 4 pm EDT PLATELET 179 K/cmm 150-450 12/07/2021 01:4 4 pm EDT MCHC 34.2 g/dL 31.0-36.5 12/07/2021 01:4 4 pm EDT MCH 31.2 pg 26.0-35.0 12/07/2021 01:4 4 pm EDT HEMATOCRIT 34.7 % 36.0-48.0 12/07/2021 01:4 4 pm EDT RBC 3.81 M/cmm 3.90-5.40 12/07/2021 01:4 4 pm EDT * CMP-COMPREHENSIVE METABOLIC PNL Performed by: [address], [place] [id number] Component Value Range Date CHLORIDE 100 mEq/L 98-110 12/07/2021 01:4 4 pm EDT CARBON DIOXIDE (CO2) 29 mEq/L 21-33 022 01:44 pm EDT BUN (UREA NITROGEN) 10 mg/dL 7-25 12/08/19 01:44 pm EDT * CBC W/DIFF Performed by: [address], [address] [address] Component Value Range Date HEMOGLOBIN 11.9 g/dL 12.0-16.0 12/07/2021 01:4 4 pm EDT * CMP-COMPREHENSIVE METABOLIC PNL Performed by: [address], [address] [address] Component Value Range Date SODIUM 138 mEq/L 136-145 12/07/2021 01:4 4 pm EDT POTASSIUM 4.0 mEq/L 3.5-5.3 12/07/2021 01:4 4 pm EDT BUN/CREATININE RATIO 14 6-25 022 01:44 pm EDT A/G RATIO 1.3 0.8-2.0 12/07/2021 01:4 4 pm EDT * CBC W/DIFF Performed by: [address], [address] [address] Component Value Range Date MPV 9.9 fL 6.5-12.0 12/07/2021 01:4 4 pm EDT * CMP-COMPREHENSIVE METABOLIC PNL Performed by: [facility], [place] [id number] [place] [address] LN, [address] [address] Component Value Range Date BILIRUBIN, TOTAL 0.4 mg/dL 0.2-1.2 12/07/2021 01:44 pm EDT CALCIUM 8.9 mg/dL 8.6-10.3mg/dL 12/07/2021 01: 44 pm EDT CREATININE 0.7 mg/dL 0.6-1.2mg/dL 12/07/2021 01:4 4 pm EDT GLUCOSE 129 12/07/2021 01:4 4 pm EDT * CBC W/DIFF Performed by: [facility], [place] [id number] [place] [address] LN, [address] [address] Component Value Range Date NUCLEATED RBC 0.2 NRBC/100 WBC <1.0 12/07/2021 01:44 pm EDT * GLYCO-HGBA1C Performed by: [address], [address] [address] Component Value Range Date eAG (Mean Glucose) 148 mg/dL <136 10:50 am EDT * Individual Tests: CMP-COMPREHENSIVE METABOLIC PNL / LIPID PROFILE w/calc LDL / GLYCO-HGBA1C / CBC W/DIFF / TSH 3-UL / VITAMIN D 25-OH TOTAL Performed by: [address], [address] [address] Component Value Range Date VITAMIN D, 25-OH TOTAL 25 SEE BELOW 10/26 10:50 am EDT * LIPID PROFILE w/calc LDL Performed by: [address], [address] [address] Component Value Range Date LDLc/HDL RATIO 3.0 <4:1 10/26/2021 10 :50 am EDT HDL 34 mg/dL >40 10/26/2021 10:5 0 am EDT LDL CALCULATED 100 mg/dL <100 10/26/2021 10 :50 am EDT VLDLc 20 mg/dL 5-40 10/26/2021 10:5 0 am EDT * CMP-COMPREHENSIVE METABOLIC PNL Performed by: [place] [address] [address], [facility] [address] [facility] [address] Component Value Range Date GLUCOSE 118 10/26/2021 10:5 0 am EDT CREATININE 0.8 mg/dL 0.6-1.2 10/26/2021 10:5 0 am EDT CALCIUM 9.1 mg/dL 8.4-10.2 10/26/2021 10:5 0 am EDT BILIRUBIN, TOTAL 0.5 mg/dL 0.2-1.2 10/26/2021 10:50 am EDT * LIPID PROFILE w/calc LDL Performed by: [address] [place], [facility] [address] [facility] [address] Component Value Range Date CHOLESTEROL 154 mg/dL <200 10/26/2021 10:5 0 am EDT TRIGLYCERIDE 98 mg/dL <150 10/26/2021 10:5 0 am EDT * Individual Tests: CMP-COMPREHENSIVE METABOLIC PNL / LIPID PROFILE w/calc LDL / GLYCO-HGBA1C / CBC W/DIFF / TSH 3-UL / VITAMIN D 25-OH TOTAL Performed by: [address] [place], [address] [address] Component Value Range Date TSH 3-UL 3.264 uIU/mL 0.340-5.600 10/26/2021 10:5 0 am EDT * CBC W/DIFF Performed by: [address], [address] [address] Component Value Range Date MPV 9.8 fL 6.5-12.0 10/26/2021 10:5 0 am EDT * GLYCO-HGBA1C Performed by: [address] [place], [address] [address] Component Value Range Date GLYCOHEMOGLOBIN-HGBA1C 6.8 % 4.1-6.1 10/26 10:50 am EDT * CMP-COMPREHENSIVE METABOLIC PNL Performed by: [address], [facility] [address] [facility] [address] Component Value Range Date BUN/CREATININE RATIO 11 6-25 022 10:50 am EDT A/G RATIO 1.3 0.8-2.0 10/26/2021 10:5 0 am EDT SODIUM 139 mEq/L 136-145 10/26/2021 10:5 0 am EDT * CBC W/DIFF Performed by: [address], [address] [address] Component Value Range Date HEMOGLOBIN 12.7 g/dL 14.0-18.0 10/26/2021 10:5 0 am EDT * CMP-COMPREHENSIVE METABOLIC PNL Performed by: [address], [address] [address] Component Value Range Date CARBON DIOXIDE (CO2) 26 mEq/L 21-33 10:50 am EDT POTASSIUM 4.1 mEq/L 3.5-5.3 10/26/2021 10:5 0 am EDT BUN (UREA NITROGEN) 9 mg/dL 7-25 10/27/19 10:50 am EDT CHLORIDE 104 mEq/L 98-110 10/26/2021 10:5 0 am EDT * CBC W/DIFF Performed by: [address], [address] [address] Component Value Range Date RBC 4.04 M/cmm 4.00-6.60 10/26/2021 10:5 0 am EDT MCH 31.3 pg 26.0-35.0 10/26/2021 10:5 0 am EDT MCHC 34.0 g/dL 31.0-36.5 10/26/2021 10:5 0 am EDT * CMP-COMPREHENSIVE METABOLIC PNL Performed by: [address], [address] [address] Component Value Range Date ALBUMIN 3.1 g/dL 3.5-5.5 10/26/2021 10:5 0 am EDT * CBC W/DIFF Performed by: [address], [address] [address] Component Value Range Date PLATELET 210 K/cmm 150-450 10/26/2021 10:5 0 am EDT WBC 9.1 K/cmm 4.5-10.8 10/26/2021 10:5 0 am EDT HEMATOCRIT 37.3 % 42.0-54.0 10/26/2021 10:5 0 am EDT * CMP-COMPREHENSIVE METABOLIC PNL Performed by: [place] [id number] Component Value Range Date ALT (SGPT) 9 IU/L 4-55 10/26/2021 10:5 0 am EDT * CBC W/DIFF Performed by: [place] [address] Component Value Range Date RDW 14.2 % 11.0-16.0 10/26/2021 10:5 0 am EDT * CMP-COMPREHENSIVE METABOLIC PNL Performed by: [place] [id number] Component Value Range Date TTX-MNY-JVOCUVX 92 mL/min/1.73 m2 >60 10/26/2021 10:50 am EDT * CBC W/DIFF Performed by: [place] [id number] Component Value Range Date BASO (ABSOLUTE) 0.10 K/uL 0.00-0.30 10/26/2021 1 0:50 am EDT NEUTROPHILS 52.9 % 40.0-80.0 10/26/2021 10:5 0 am EDT * CMP-COMPREHENSIVE METABOLIC PNL Performed by: [address], [place] [id number] Component Value Range Date PROTEIN, TOTAL 5.5 g/dL 6.0-8.3 10/26/2021 10 :50 am EDT ALKALINE PHOS 50 IU/L 34-136 10/26/2021 10: 50 am EDT AST (SGOT) 12 IU/L 4-40 10/26/2021 10:5 0 am EDT * CBC W/DIFF Performed by: [address] [place] [address] Component Value Range Date MONOCYTES (ABSOLUTE) 0.60 K/uL 0.15-1.10 022 10:50 am EDT EOS (ABSOLUTE) 0.50 K/uL 0.20-0.80 10/26/2021 10 :50 am EDT NEUTS (ABSOLUTE) 4.80 K/uL 1.50-7.60 10/26/2021 10:50 am EDT LYMPHS 34.0 % 13.0-48.0 10/26/2021 10:5 0 am EDT EOS 5.2 % 0.0-8.0 10/26/2021 10:5 0 am EDT BASO 1.3 % 0.0-2.0 10/26/2021 10:5 0 am EDT MONOCYTES 6.6 % 2.0-12.0 10/26/2021 10:5 0 am EDT LYMPHS (ABSOLUTE) 3.10 K/uL 0.90-5.50 10/26/2021 10:50 am EDT MCV 92.2 fL 80.0-100.0 10/26/2021 10:5 0 am EDT * CMP-COMPREHENSIVE METABOLIC PNL Performed by: [address], [address] [address] Component Value Range Date GFR- 112 mL/min/1.73 m2 >60 0 10/26/2021 10:50 am EDT * Individual Tests: [facility] [place] Performed by: [address], [address] [address] Component Value Range Date [facility] [place] * 10/17/2021 01:07 pm EDT * URINALYSIS Performed by: [address], [address] [address] Component Value Range Date COLOR YELLOW YELLOW 08/10/2021 05:3 9 pm EDT NITRITE,UR NEGATIVE NEGATIVE 08/10/2021 05:3 9 pm EDT WBC,UR >50 /HPF <6 08/10/2021 05:3 9 pm EDT LEUKOCYTES,UR 3+ NEGATIVE 08/10/2021 05: 39 pm EDT BLOOD,UR 1+ NEGATIVE 08/10/2021 05:3 9 pm EDT SPECIFIC GRAVITY 1.017 1.001-1.030 08/10/2021 05:39 pm EDT MUCOUS PRESENT ABSENT 08/10/2021 05:3 9 pm EDT GLUCOSE,UR NEGATIVE NEGATIVE 08/10/2021 05:3 9 pm EDT PROTEIN,UR 3+ NEGATIVE 08/10/2021 05:3 9 pm EDT RBC,UR >50 /HPF <6 08/10/2021 05:3 9 pm EDT UROBILINOGEN,UR NEGATIVE NEGATIVE 08/10/2021 0 5:39 pm EDT EPITHELIAL CELL NEGATIVE NEGATIVE 08/10/2021 0 5:39 pm EDT HYALINE CASTS NEGATIVE NEGATIVE 08/10/2021 05: 39 pm EDT KETONES,UR NEGATIVE NEGATIVE 08/10/2021 05:3 9 pm EDT AMORPHOUS PRESENT ABSENT 08/10/2021 05:3 9 pm EDT BACTERIA,UR MANY NEGATIVE 08/10/2021 05:3 9 pm EDT PH, URINE 9.0 5.0-8.5 08/10/2021 05:3 9 pm EDT BILIRUBIN,UR NEGATIVE NEGATIVE 08/10/2021 05:3 9 pm EDT CLARITY TURBID CLEAR 08/10/2021 05:3 9 pm EDT * Individual Tests: URINALYSIS / CULTURE, URINE Performed by: [facility], [place] [id number] [place] [address], [place] [facility] [address] Component Value Range Date CULTURE, URINE . 08/10/2021 05 :39 pm EDT * BASIC MET PNL INCL GFR (BMP) Performed by: [address], [facility] [address] [facility] [address] Component Value Range Date CALCIUM 9.0 mg/dL 8.6-10.3mg/dL 07/09/2021 12: 37 pm EDT GLUCOSE 105 07/09/2021 12:3 7 pm EDT CREATININE 0.8 mg/dL 0.7-1.3mg/dL 07/09/2021 12:3 7 pm EDT BUN/CREATININE RATIO 15 6-25 022 12:37 pm EDT GFR- 112 mL/min/1.73 m2 >60 0 07/09/2021 12:37 pm EDT RJY-ULR-AAEIQNO 92 mL/min/1.73 m2 >60 07/09/2021 12:37 pm EDT CHLORIDE 95 mEq/L 98-110 07/09/2021 12:3 7 pm EDT BUN (UREA NITROGEN) 12 mg/dL 7-25 07/10/19 22 12:37 pm EDT CARBON DIOXIDE (CO2) 29 mEq/L 21-33 022 12:37 pm EDT POTASSIUM 4.4 mEq/L 3.5-5.3 07/09/2021 12:3 7 pm EDT SODIUM 137 mEq/L 135-145 07/09/2021 12:3 7 pm EDT * LIPID PROFILE w/calc LDL Performed by: [address], [place] [address] Component Value Range Date VLDLc 27 mg/dL 5-40 06/25/2021 08:1 1 pm EDT HDL 39 mg/dL >40 06/25/2021 08:1 1 pm EDT LDL CALCULATED 99 mg/dL <100 06/25/2021 08 :11 pm EDT LDLc/HDL RATIO 2.5 <4:1 06/25/2021 08 :11 pm EDT CHOLESTEROL 165 mg/dL <200 06/25/2021 08:1 1 pm EDT TRIGLYCERIDE 137 mg/dL <150 06/25/2021 08:1 1 pm EDT * CBC W/DIFF Performed by: [address], [place] [id number] Component Value Range Date HEMOGLOBIN 12.6 g/dL 14.0-18.0 06/22/2021 04:0 9 pm EDT * CMP-COMPREHENSIVE METABOLIC PNL Performed by: [address], [address] [address] Component Value Range Date POTASSIUM 4.1 mEq/L 3.5-5.3 06/22/2021 04:0 9 pm EDT SODIUM 135 mEq/L 135-145 06/22/2021 04:0 9 pm EDT BUN (UREA NITROGEN) 11 mg/dL 7-25 06/23/19 22 04:09 pm EDT CARBON DIOXIDE (CO2) 32 mEq/L 21-33 022 04:09 pm EDT * CBC W/DIFF Performed by: [address], [place] [address] Component Value Range Date RBC 4.30 M/cmm 4.00-6.60 06/22/2021 04:0 9 pm EDT * CMP-COMPREHENSIVE METABOLIC PNL Performed by: [address], [place] [address] Component Value Range Date CHLORIDE 91 mEq/L 98-110 06/22/2021 04:0 9 pm EDT * CBC W/DIFF Performed by: [address], [place] [address] Component Value Range Date MCHC 31.9 g/dL 31.0-36.5 06/22/2021 04:0 9 pm EDT MCH 29.4 pg 26.0-35.0 06/22/2021 04:0 9 pm EDT HEMATOCRIT 39.6 % 42.0-54.0 06/22/2021 04:0 9 pm EDT WBC 6.5 K/cmm 4.5-10.8 06/22/2021 04:0 9 pm EDT * CMP-COMPREHENSIVE METABOLIC PNL Performed by: [address], [place] [id number] Component Value Range Date ALT (SGPT) 19 IU/L 4-55 06/22/2021 04:0 9 pm EDT * CBC W/DIFF Performed by: [address], [place] [id number] Component Value Range Date PLATELET 232 K/cmm 150-450 06/22/2021 04:0 9 pm EDT * CMP-COMPREHENSIVE METABOLIC PNL Performed by: [address], [place] [address] Component Value Range Date AST (SGOT) 38 IU/L 4-40 06/22/2021 04:0 9 pm EDT ALBUMIN 3.0 g/dL 3.5-5.5 06/22/2021 04:0 9 pm EDT PROTEIN, TOTAL 6.5 g/dL 6.0-8.3 06/22/2021 04 :09 pm EDT ALKALINE PHOS 70 IU/L 34-136 06/22/2021 04: 09 pm EDT * CBC W/DIFF Performed by: [address], [place] [id number] Component Value Range Date RDW 18.3 % 11.0-16.0 06/22/2021 04:0 9 pm EDT NEUTROPHILS 45.3 % 40.0-80.0 06/22/2021 04:0 9 pm EDT BASO (ABSOLUTE) 0.10 K/uL 0.00-0.30 06/22/2021 0 4:09 pm EDT * CMP-COMPREHENSIVE METABOLIC PNL Performed by: [address], [place] [id number] Component Value Range Date VVZ-VEX-HTAMNEB 108 mL/min/1.73 m2 >60 06/22/2021 04:09 pm EDT GFR- 130 mL/min/1.73 m2 >60 0 06/22/2021 04:09 pm EDT * CBC W/DIFF Performed by: [address], [place] [id number] Component Value Range Date MCV 92.1 fL 80.0-100.0 06/22/2021 04:0 9 pm EDT LYMPHS (ABSOLUTE) 2.30 K/uL 0.90-5.50 06/22/2021 04:09 pm EDT MONOCYTES 12.5 % 2.0-12.0 06/22/2021 04:0 9 pm EDT LYMPHS 34.9 % 13.0-48.0 06/22/2021 04:0 9 pm EDT BASO 1.3 % 0.0-2.0 06/22/2021 04:0 9 pm EDT EOS 6.0 % 0.0-8.0 06/22/2021 04:0 9 pm EDT NEUTS (ABSOLUTE) 2.90 K/uL 1.50-7.60 06/22/2021 04:09 pm EDT EOS (ABSOLUTE) 0.40 K/uL 0.20-0.80 06/22/2021 04 :09 pm EDT MONOCYTES (ABSOLUTE) 0.80 K/uL 0.15-1.10 022 04:09 pm EDT * CMP-COMPREHENSIVE METABOLIC PNL Performed by: [address], [place] [id number] Component Value Range Date BUN/CREATININE RATIO 16 6-25 022 04:09 pm EDT A/G RATIO 0.9 0.8-2.0 06/22/2021 04:0 9 pm EDT * GLYCO-HGBA1C Performed by: [address], [place] [id number] Component Value Range Date GLYCOHEMOGLOBIN-HGBA1C 6.2 % 4.1-6.1 06/22 04:09 pm EDT * Individual Tests: CMP-COMPREHENSIVE METABOLIC PNL / GLYCO-HGBA1C / CBC W/DIFF / TSH 3-UL / VITAMIN D 25-OH TOTAL Performed by: [address], [place] [id number] Component Value Range Date TSH 3-UL 8.415 uIU/mL 0.340-5.600 06/22/2021 04:0 9 pm EDT * CBC W/DIFF Performed by: [address], [place] [id number] Component Value Range Date MPV 9.6 fL 6.5-12.0 06/22/2021 04:0 9 pm EDT * CMP-COMPREHENSIVE METABOLIC PNL Performed by: [address], [place] [id number] Component Value Range Date CREATININE 0.7 mg/dL 0.7-1.3mg/dL 06/22/2021 04:0 9 pm EDT GLUCOSE 82 06/22/2021 04:0 9 pm EDT CALCIUM 9.1 mg/dL 8.6-10.3mg/dL 06/22/2021 04: 09 pm EDT BILIRUBIN, TOTAL 0.8 mg/dL 0.2-1.2 06/22/2021 04:09 pm EDT * GLYCO-HGBA1C Performed by: [address], [place] [id number] Component Value Range Date eAG (Mean Glucose) 131 mg/dL <136 04:09 pm EDT * CBC W/DIFF Performed by: [facility] [place] [id number] [place] [address] LN, [address] [address] Component Value Range Date ANISOCYTOSIS 1+ NEGATIVE 06/22/2021 04:0 9 pm EDT * Individual Tests: CMP-COMPREHENSIVE METABOLIC PNL / GLYCO-HGBA1C / CBC W/DIFF / TSH 3-UL / VITAMIN D 25-OH TOTAL Performed by: [facility] [place] [place] [id number] [place] [address] LN, [facility] [address] [facility] [id number] Component Value Range Date VITAMIN D, 25-OH TOTAL 28 SEE BELOW 06/22 04:09 pm EDT Encounters Encounter Performer Performer Role Encounter Diagnoses Location Date [facility] 06/17/2021 08:10 pm EDT - 07/18/2021 05:53 pm EDT Leave - [facility] 07/24/2021 10:24 pm EDT - 09/10/2021 03:30 pm EDT Discharge - Discharged / Transferred to [facility] [place] 09/18/2021 06:40 pm EDT - 03/31/2022 04:45 pm EST Discharge - Discharged / Transferred to [facility] 04/08/2022 03:45 pm EST - 06/06/2022 07:40 am EDT Discharge - Discharged / Transferred to [facility] 06/13/2022 07:10 pm EDT - 08/26/2022 11:15 am EDT Immunizations Vaccine Date Influenza 12/20/2021 01:00 am EDT Influenza 12/29/2019 01:00 am EDT TB 1 Step [place] (PPD) 12/07/2021 01:00 am EDT PCV-13/Prevnar 13 11/14/2021 10:06 am EDT COVID Dose 1 06/25/2021 12:45 pm EDT COVID Dose 2 07/27/2021 01:00 am EDT COVID Booster 12/07/2021 01:00 am EDT Social History
--- OUTSIDE RECORDS SUMMARY | 2024-04-18 12:22 | XMS_ITS | Clinical Summary ---
Author Organization [facility] [place] Lenz [place] nsion Address [address] [place] [address] Care Team Providers [employer]ica Name Role Phone Margarita Jaimes MD Unavailable [phone] Jeevan Gibson MD PhD Unavailable [phone] Olu Reis MD Unavailable [phone] Brant Rodriguez DPM Unavailable [phone] Cathi Freeman MD Unavailable Tiana Hilario NP Primary Care Provider [phone] Allergies Active Allergy Reactions Criticality Noted Date Comments Cephalexin Unknown 09/10/2021 Per pt's facility pt is allergic to Keflex, pt denies allergy. Patient has tolerated ceftriaxone and cefepime in the past. Medications cholecalciferol (VITAMIN D-3) 5,000 unit capsule Take 1 capsule (5,000 Units total) by mouth once a week Takes on Friday03/16/19 20 Active ondansetron (ZOFRAN) 4 mg tablet Take 1 tablet (4 mg total) by mouth every 4 (four) hours as needed for nausea or vomiting Has not been taking Active insulin lispro (HumaLOG, ADMELOG) 100 unit/mL vial for injection Inject 0-12 Units under the skin 3 (three) times a day before meals Sliding scale BG level: directions 0-70: Notify MD and initiate hypoglycemia protocol < 170: 0 units 170-200: 2 units 201-250: 4 units 251-300: 6 units 301-350: 8 units 351 to 400: 10 units 400 or greater: 10 units and call MD Active acetaminophen (TYLENOL) 325 mg tablet Take 2 tablets (650 mg total) by mouth 3 (three) times a day Active traZODone (DESYREL) 50 mg tablet Take 1 tablet (50 mg total) by mouth nightly PER [facility] [place] MEDICATION LIST Active docusate sodium (COLACE) 100 mg capsule Take 1 capsule (100 mg total) by mouth 2 (two) times a day Active menthol 4 % gel Apply 1 Application topically 2 (two) times a day as needed (bilateral knees) Active triamcinolone (KENALOG) 0.1 % cream Apply 1 g topically 2 (two) times a day as needed for irritation or rash Active finasteride (PROSCAR) 5 mg tablet Take 1 tablet (5 mg total) by mouth nightly Active apixaban (ELIQUIS) 5 mg tablet Take 1 tablet (5 mg total) by mouth 2 (two) times a day Active insulin glargine (LANTUS) 100 unit/mL (3 mL) pen for injection Inject 15 Units under the skin nightly 12 units given HS per surgery instructions Active furosemide (LASIX) 20 mg tablet Take 1 tablet (20 mg total) by mouth daily Active polyethylene glycol (MIRALAX) 17 gram packetIndications:co nstipation Take 1 packet (17 g total) by mouth daily Active nystatin ointment Apply 1 Application topically 2 (two) times a day Tania area Active albuterol HFA (PROVENTIL HFA,VENTOLIN HFA,PROAIR HFA) 90 mcg/actuation inhaler Inhale 2 puffs every 4 (four) hours as needed for wheezing Rescue inhaler - has not had to use 07/26/19 24 Active magnesium hydroxide (CONCENTRATED MILK OF MAGNESIA) suspension 2,400 mg/10 mL Take 15 mL by mouth nightly Active cyanocobalamin (Vitamin B-12) 1,000 mcg/mL injection Inject 1 mL (1,000 mcg total) into the muscle as instructed every 7 days On Fridays Active sacubitriL-valsartan (ENTRESTO) 24-26 mg tabletIndications:ch ronic heart failure Take 1 tablet by mouth 2 (two) times a day Active omeprazole (PriLOSEC) 20 mg capsule Take 1 capsule (20 mg total) by mouth daily Active peg 400-propylene glycol (SYSTANE) 0.4-0.3 % ophthalmic solution Administer 1 drop into both eyes every 4 (four) hours as needed (dry eye) Active citalopram (CeleXA) 10 mg tablet 01/09/[address] (DEPAKOTE) 250 mg EC tablet 01/05/20 24 Active methenamine (HIPREX) 1 gram tablet 01/09/20 24 Active bisacodyl EC (DULCOLAX EC) 5 mg EC tabletIndications:co nstipation Take 4 tablets (20 mg total) by mouth daily for 7 days 28 tablet 01/12/20 24 Active oxyBUTYnin (DITROPAN) 5 mg tablet Take 1 tablet (5 mg total) by mouth 3 (three) times a day for 5 days 15 tablet 01/12/20 24 Active metoprolol XL (TOPROL-XL) 25 mg extended release tabletIndications:Ca rdiac resynchronization therapy pacemaker (HANDWRITING EXPERT-P) in place,PVC's (premature ventricular contractions),Perman ent atrial fibrillation (CMS/HCC) (HCC) Take 1 tablet (25 mg total) by mouth daily 90 tablet 3 01/20/20 24 025 Active Active Problems Problem Noted Date Diagnosed Date Palliative care by specialist 07/10/2023 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 Dr. Dickens does recommend jail [place] but patient is resistant at this [...] . Assessment & Plan (04/29/2022 12:59 PM RESEARCH CONTRACTS SUPERVISOR): -Has had 1 confirmed, possibly 2-3 other [...] apixaban Assessment & Plan (05/17/2021 10:47 AM RESEARCH CONTRACTS SUPERVISOR): Assessment/plan: Continue ASA and statin therapy. Bilateral [...] lispro. Assessment & Plan (05/17/2021 10:46 AM RESEARCH CONTRACTS SUPERVISOR): Assessment/plan: Insulin strict glucose control Assessment & [...] 0 11/03/2017 Basal cell carcinoma (BCC) of advent region 10/2017 Basal cell carcinoma (BCC) of [...] supplement Assessment & Plan (02/23/2020 10:37 AM RESEARCH CONTRACTS SUPERVISOR): Continue daily supplement Assessment & Plan (09/01/2019 8:28 AM CDT): Continue supplement Assessment & Plan (01/19/2019 1:00 PM RESEARCH CONTRACTS SUPERVISOR): Continue supplement, recheck labs Assessment & Plan (07/03/2018 9:35 AM CDT): Continue supplement History of fall 06/20/2015 Assessment & Plan (08/15/2023 1:04 PM CDT): Patient did slip from bed 6/ & has been complaining of L rib pain since. Will obtain XR to ro. He does report better but asking for XR. Assessment & Plan (05/19/2020 5:35 AM RESEARCH CONTRACTS SUPERVISOR): Patient has a history of falls and [...] have this information as she [facility] [place] [facility] [place]. Cont rx lexapro [...] (09/22/2023 10:42 AM CDT): BP stable. Continue Lasalisha, Entresto. Assessment & Plan (09/15/2023 11:51 AM [...] regimen. Assessment & Plan (04/27/2019 12:44 PM RESEARCH CONTRACTS SUPERVISOR): Hypertension is controlled. Continue current regimen. Assessment [...] neoplasm of prostate 08/07/2010 Complete atrioventricular block ([facility]/HCC) 2010 Assessment & Plan (11/26/2017 7:06 AM CDT): S/P pacemaker. Follow with cardiology. Atrial flutter ([facility]) 07/24/2010 SSS (sick sinus syndrome) ([facility]) Chronic combined systolic an d diastolic congestive heart failure ([facility]) Assessment & Plan (10/07/2023 4:18 PM CDT): [...] Anxiety and depression History of pulmonary embolism Resolved Problems Problem Noted Date Diagnosed Date Resolved Date Kidney stone 08/29/2023 09/05/2023 Rib pain 08/15/2023 09/05/2023 Assessment & Plan (08/18/2023 11:29 AM CDT): XR negative. Pain improved. Renal stone 07/18/2023 09/15/2023 Assessment & Plan (08/15/2023 1:03 PM CDT): FU Urology shyann for 08/24. Keep. SS aware & scheduling. [...] [place] 09/11. 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 Will discuss [...] systolic heart failure 03/31/2022 02/23/2023 Orthostatic hypotension 07/18/2021 0505/2023 Severe malnutrition 05/31/2021 08/05/19 FLORINDA (acute kidney injury) 05/31/2021 Assessment & Plan (07/31/2023 11:29 AM CDT): Repeat labs pending for am. Monitor. Sepsis associated hypotension 05/31/2021 07/31/2023 Multiple open wounds of ankle 05/17/2021 02/23/2023 Assessment & Plan (05/17/2021 10:51 AM RESEARCH CONTRACTS SUPERVISOR): Assessment/plan: Pressure ulceration the lateral ankles likely from his bed. Continue local wound care with Betadine paint and offloading. Eventually he will likely need an MRI to rule out osteomyelitis. Cognitive communication deficit 03/09/2021 07/31/2023 Myalgia 04/27/2019 02/23/2023 Dermatitis 04/27/2019 02/23/2023 Assessment & Plan (04/27/2019 1:50 PM RESEARCH CONTRACTS SUPERVISOR): No evidence of cellulitis. Moisturize with vaseline. Use OTC cortisone OTC. Acute cystitis 01/20/2019 07/31/2023 Low back pain 01/19/2019 09/22/2023 Assessment & Plan (01/19/2019 1:19 PM RESEARCH CONTRACTS SUPERVISOR): Will check urinalysis with reflex to culture Obesity (BMI 30-39.9) 08/28/20182022 Neuropathy 03/24/2018 07/31/2023 Generalized weakness 02/27/2018 023 Actinic keratosis 02/25/2017 09/29/2023 Seborrheic keratoses 02/25/2017 07/22/2 024 Alzheimer's disease 10/01/2016 11/27/19 18 Uncontrolled type 2 diabetes mellitus with hyperglycemia 05/22/2016 02/23/2023 Assessment & Plan (10/10/2020 8:02 AM CDT): Glucoses within a reasonable margin of safety, so would not make any changes in his regimen at this time Assessment & Plan (02/23/2020 10:38 AM RESEARCH CONTRACTS SUPERVISOR): Glucoses a little high, but he has [...] labs Assessment & Plan (01/19/2019 1:00 PM RESEARCH CONTRACTS SUPERVISOR): Glucoses within a good margin of safety, but a little high so he would benefit from a little more basal insulin Assessment & Plan (07/03/2018 9:35 AM CDT): Mild hyperglycemia, but maintaining a good margin of safety. I would not change therapy at this time Muscle weakness of lower extremity 03/20/2016 02/23/2023 Vascular dementia 06/20/2015 02/23/2023 Assessment & Plan (05/19/2020 5:38 AM RESEARCH CONTRACTS SUPERVISOR): Patient may experience some deficits with stress or electrolyte disturbances as was with his left leaning episodes. Will continue to monitor and emphasize safety to family. Assessment & Plan (02/23/2020 10:37 AM RESEARCH CONTRACTS SUPERVISOR): He is supported by his . Need to minimize risk of hypoglycemia Dysphagia 06/30/2014 09/08/2023 Assessment & Plan (05/19/2020 5:36 AM RESEARCH CONTRACTS SUPERVISOR): Patient is having chocking episodes and the [...] trazodone. Assessment & Plan (05/19/2020 5:31 AM RESEARCH CONTRACTS SUPERVISOR): As the patient continues to have functional [...] hour care. PAF (paroxysmal atrial fibri llation) ([facility]) 07/24/2013 09/17/2022 Overview (06/14/2016): ATRIAL FIBRILLATION Assessment & Plan (05/17/2021 10:46 AM RESEARCH CONTRACTS SUPERVISOR): Assessment/plan: Metoprolol Assessment & Plan (04/27/2019 12:44 PM RESEARCH CONTRACTS SUPERVISOR): Continue rate control. Continue anticoagualtion. Assessment & Plan (12/04/2018 1:38 PM CDT): Continue metoprolol. S/p pacemaker. Assessment & Plan (11/26/2017 7:05 AM CDT): Continue rate control. Continue anticoagualtion. Diabetic hypoglycemia ([facility]) 03/26/2013 02/23/2023 Pacemaker at end of battery life 10/27/2012 07/31/2023 Skin callus 05/04/2012 09/29/2023 Onychomycosis due to dermatophyte 05/04/2012 02/23/2023 BPH with obstruction/lower u rinary tract symptoms 02/23/2023 Assessment & Plan (04/29/2022 12:57 PM RESEARCH CONTRACTS SUPERVISOR): -On flomax. -PVR today was 13 mL. [...] producing bacteria infection 07/31/2023 Memory loss 07/31/2023 Encounters Date Type Department Care Team Description 02/17/2024 11:00 AM RESEARCH CONTRACTS SUPERVISOR Office Visit [facility] Radiology, Interventional Radiology [address] [place] [id number] Elizabeth Vela PA BPH with obstruction/lower urinary tract symptoms (Primary Dx); Frequent UTI; Urinary retention 01/22/2024 3:40 PM RESEARCH CONTRACTS SUPERVISOR Office Visit [facility] Surgery [address] [place] [address] Landon Dickens MD BPH with obstruction/lower urinary tract symptoms (Primary Dx) 01/22/2024 Telephone [facility] Radiology [address] [place] [address] Franci Luciano RN 01/20/2024 1:00 PM RESEARCH CONTRACTS SUPERVISOR Office Visit [facility] Cardiology [address] [place] [address] Jared Hernandez MD Complete atrioventricular block (CMS/HCC) (HCC) (Primary Dx); Cardiac resynchronization therapy pacemaker (HANDWRITING EXPERT-P) in place; PVC's (premature ventricular contractions); Permanent atrial fibrillation (CMS/HCC) (HCC) 01/20/2024 12:30 PM RESEARCH CONTRACTS SUPERVISOR Ancillary Procedure [facility] Cardiology [facility] [place] [address] SSS (sick sinus syndrome) (CMS/HCC) (HCC); Complete atrioventricular block (CMS/HCC) (HCC); Cardiac resynchronization therapy pacemaker (HANDWRITING EXPERT-P) in place; Permanent atrial fibrillation (CMS/HCC) (HCC); Atrial flutter, unspecified type (HCC) 01/20/2024 Orders Only [facility] Cardiology [facility] [place] [address] Jared Hernandez MD Complete atrioventricular block (CMS/HCC) (HCC) (Primary Dx); SSS (sick sinus syndrome) (CMS/HCC) (HCC); Cardiac resynchronization therapy pacemaker (HANDWRITING EXPERT-P) in place; Permanent atrial fibrillation (CMS/HCC) (HCC); Sinus node dysfunction (CMS/HCC) (HCC) from Last 3 Months Immunizations Name Administration Dates Next Due Influenza, Quadrivalent, Hig h Dose, Preservative Free, Intrr 02/28/2023,12/29/2019 Influenza, Quadrivalent, Spl it, Intramuscular 03/14/2014 Influenza, Quadrivalent, Spl it, Preservative Free, Intramuscular 02/06/2016 Influenza, Trivalent, High D ose, Split, Preservative Free, Intramuscular 12/04/2018,01/23/2018,12/20/2016,12/29 Influenza, Trivalent, Preser vative Free, Intramuscular 02/06/2016,12/16/2012 Pneumococcal Conjugate PCV 13 07/17/2015 Pneumococcal Polysaccharide PPV23 11/15/2010 Surgical History Surgery Date Site/Laterality Comments CARDIAC PACEMAKER PLACEMENT Cardiac pacemaker TONSILLECTOMY Tonsillectomy SD THERAPEUTIC SPINAL PUNCTU RE DRAINAGE CSF Spinal Tap For Drainage Of Fluid - 2012 (Added by TW Conv) CYSTOSCOPY W/ URETEROSCOPY W / LITHOTRIPSY 07/25/2023 Right W/ STENT EXCHANGE CYSTOSCOPY 07/11/2023 Right CYSTOSCOPY PLACEMENT RIGHT URETERAL STENT; RETROGRADE PYELOGRAM EMBOLIZATION ORGAN ISCHEMIA OR INFARCTION 01/12/2024 N/A Medical History Medical History Date Comments Malignant neoplasm of prostate (HCC) Cancer, prostate Malignant neoplasm of skin Cance r, skin Personal history of other me ntal and behavioral disorders History of anxiety - (Added by TW Conv) Encounter for adjustment and management of other part of cardiac pacemaker Fitting and adjustment of ca rdiac pacemaker - (Added by TW Conv) Encounter for adjustment and management of other part of cardiac pacemaker Adjustment and management of cardiac pacemaker - (Added by TW Conv) Hypertension CHF (congestive heart failur e) ([facility]/HCC) (HCC) GERD (gastroesophageal reflux disease) 2021 Benign prostatic hyperplasia 2006 Diabetes mellitus ([facility]) 2004 Type 2 diabetes mellitus ([facility]) Peripheral neuropathy From knees to feet on both legs Dependent on wheelchair Incontinent of urine and stool w ears depends Dementia (HCC) Wound, open, buttock 2023 WOUNDS NOTED IN CHART TO BILATERAL BUTTOCK AND HEEL Broken tooth; Root display 09/01/2023 Per W meghann. To be fixed 09/04/23. Urinary tract infection Arrhythmia Anemia Obesity Sleep apnea Family History Medical History Relation Name Comments Alcohol abuse Brother 1 Edson Diabetes type II Brother 1 Edson Family hist ory of type 2 diabetes mellitus - 2 brothers (Added by TW Conv) Diabetes Brother 2 Family history of diabetes mellitus - (Added by TW Conv) Diabetes Brother 3 Jasbir Heart disease Father Agnellus Family history of cardiac disorder - (Added by TW Conv) Hypertension Father Agnellus Family history of hypertension - (Added by TW Conv) Stroke Father Agnellus Family history of cerebrovascular accident (CVA) - (Added by TW Conv) Colon cancer Mother Cancer, colon; /Colon cancer - (Added by TW Conv) Diabetes type II Other 1 Family hist ory of type 2 diabetes mellitus - 2 brothers (Added by TW Conv) Cancer Other 2 Cancer - (Added by TW Conv) Cancer Sister HOT TOP LINER HELPER Cancer - (Added by TW Conv) Relation Name Status Comments Brother 1 Edson Brother 2 Brother 3 Jasbir Father Agnellus Mother Alive Other 1 Other 2 Sister HOT TOP LINER HELPER Social History Tobacco Use Types Packs/Day Years Used Date Smoking Tobacco: Never Smokeless Tobacco: Never Tobacco Cessation:Counseling Given: Not Answered Alcohol Use Standard Drinks/Week Comments Not Currently 0 (1 standard drink = 0.6 oz pur e alcohol) [facility] Utilities Answer Date Recorded In the past 12 months has th e electric, gas, oil, or water [employer] threatened to shut off services in your home? No 07/09/2023 Social Connection and Isolation Panel [NHANES] A nswer Date Recorded In a typical week, how many times do you talk on the phone with family, friends, or neighbors? Three times a week 07/09/2023 How often do you get togethe r with friends or relatives? Three times a week 07/09/2023 How often do you attend chur ch or yarsani services? Never 07/09/2023 Do you belong to any clubs o r organizations such as baptist groups, unions, fraternal or athletic groups, or school groups? No 07/09/2023 How often do you attend meet ings of the clubs or organizations you belong to? Never 07/09/2023 Are you , , di vorced, , never , or living with a partner? 07/09/2023 AUDIT-C Answer Date Recorded Q1: How often do you have a drink containing alcohol? Never 09/03/2023 Q2: How many drinks containi ng alcohol do you have on a typical day when you are drinking? Patient does not drink Q3: How often do you have si x or more drinks on one occasion? Never 09/03/2023 Overall Financial Resource Strain (CARDIA) Answe r Date Recorded How hard is it for you to pa y for the very basics like food, housing, medical care, and heating? Not hard at all 07/09/2023 PHQ-2 Answer Date Recorded PHQ-2 Total Score (If total score is 3 or more points, staff should administer the PHQ-9) 0 07/04/2020 Hunger Vital Sign Answer Date Recorded Within the past 12 months, y ou worried that your food would run out before you got the money to buy more. Never true 07/09/19 24 Within the past 12 months, t he food you bought just didn't last and you didn't have money to get more. Never true 07/09/2023 PRAPARE - Transportation Answer Date Re corded In the past 12 months, has l ack of transportation kept you from medical appointments or from getting medications? No 03/2023 In the past 12 months, has l ack of transportation kept you from meetings, work, or from getting things needed for daily living? No 07/09/2023 Housing Stability Vital Sign Answer Mendoza e Recorded In the last 12 months, was t here a time when you were not able to pay the mortgage or rent on time? No 07/09/2023 In the last 12 months, how many places have you lived? 1 07/09/2023 In the last 12 months, was t here a time when you did not have a steady place to sleep or slept in a assisted (including now)? No 07/09/2023 Personal Safety Answer Date Recorded Have you ever been in or are you currently in a harmful physical or emotional relationship or is someone making you feel afraid or unsafe? Denies 01/12/2024 Sex and Gender Information Value Date Recorded Sex Assigned at Male 05/11/2018 9:16 AM RESEARCH CONTRACTS SUPERVISOR Legal Sex Male 1:34 AM RESEARCH CONTRACTS SUPERVISOR Gender Identity Not on file Sexual Orientation Straight 05/11/2018 9: 16 AM RESEARCH CONTRACTS SUPERVISOR Obstetrics History Last Filed Vital Signs Vital Sign Reading Time Taken Comments Blood Pressure 104/60 01/20/2024 12:35 PM RESEARCH CONTRACTS SUPERVISOR Pulse 64 01/20/2024 12:35 PM RESEARCH CONTRACTS SUPERVISOR Temperature 36 C (96.8 F) 01/12/2024 1:05 PM RESEARCH CONTRACTS SUPERVISOR Respiratory Rate 14 01/12/2024 2:10 PM RESEARCH CONTRACTS SUPERVISOR Oxygen Saturation 99% 01/20/2024 12:35 PM RESEARCH CONTRACTS SUPERVISOR Inhaled Oxygen Concentration - - Weight 108 kg (238 lb) 02/17/2024 11:07 AM RESEARCH CONTRACTS SUPERVISOR Height 190.5 cm (6' 3 ) 02/17/2024 11:07 AM RESEARCH CONTRACTS SUPERVISOR Body Mass Index 29.75 02/17/2024 11:07 AM RESEARCH CONTRACTS SUPERVISOR Plan of Treatment Health Maintenance Due Date Last Done Comments Dilated Eye Exam 1938 Hepatitis B Screening 01/26/1956 Zoster Vaccine (1 of 2) 01/26/1988 Well Visit 65+ 2003 Albumin Creatinine Ratio, Urine 02/02/2020 02/01/2019, 01/19/2019, 10/01/2017 Foot Exam 12/28/2020 12/29/2019, 01/08, 12/04/2018, Additional history exists Depression Screening 07/04/2021 07/04/2020, 12/04/2018, 11/26/2017, Additional history exists Covid-19 Vaccine (2 - 2023-2 5 season) 2023 06/25/2021 Influenza Vaccine (#1) 2023 , 12/29/2019, 12/04/2018, Additional history exists Hemoglobin A1C 01/09/2024 07/09/2023, 02/07, 04/03/2022, Additional history exists Lipid Panel 06/08/2024 06/09/2023, 11/2022, 01/15/2023, Additional history exists Fall Risk Assessment 01/11/2025 01/12/2024, 07/04/2020, 12/04/2018, Additional history exists eGFR 01/11/2025 01/12/2024, 10/08, 09/08/2023, Additional history exists DTaP/Tdap/Td Vaccine (2 - Td or Tdap) 03/07/2031 03/07/2021 Pneumococcal vaccine 65+ Completed 022, 07/17/2015, 11/15/2010 Medical Devices Implanted Type Area Front Office Developer Device Identifier Shelf Expiration Date Model / Serial / Lot Pacemaker Pacemaker Left: Chest Lead Pacing Acuity X4 Irox [id number] Titanium Dexamethasone Acetate 4 Cm Space L95 Cm Od3.9-5.2 Fr Odsec2.6 Fr Left Ventricular Otw Quadripolar Long Straight Taper Tip Accept .081 In Guide Catheter [id number] Implanted:Qty: 1 on 06/06/2022 by Jared Hernandez MD at [facility] Quipper Anisha [id number] 08/21/2023 [id number] / [id number] / [employer] C.R.M. Valitude X4 Latitude Nxt Hf Perspectiv Easyview 2.6fr 4.45x6.17cm U128 - [id number] - [id number] Implanted:Qty: 1 on 06/06/2022 by Jared Hernandez MD at [facility] Quipper C.R.M. [id number] 10/04/2023 [id number] / [id number] / Medtronic Inc Tyrx Absorbable Antibacterial Envelope-Large 3.3x2.9in [id number] - [id number] Implanted:Qty: 1 on 06/06/2022 by Jared Hernandez MD at [facility] Med[employer]onic Inc [id number] / / [employer]. Medical Anisha Angio-Seal Vip 6fr Closere Device [id number] - [id number] Implanted:Qty: 1 on 01/12/2024 at [facility] [employer] Medical Anisha 05/11/2024 [id number] / / [id number] Quipper Anisha Coil Embo Detach Soft Embold [id number] Sterile Latex-Free [id number] - [id number] Implanted:Qty: 1 on 01/12/2024 at [facility] Quipper Anisha 07/09/2026 [id number] / / [id number] [facility] [employer] Embosphere Prefill Saline Syringe Compressible Nonaggregate S420gh - [id number] Implanted:Qty: 1 on 01/12/2024 at [facility] [employer] 10/23/2026 [id number] / / [id number] Medtronic Inc Coil Embolization Coated Detachable Helical Concerto [id number] Nylon Xz-3-79-Munday - [id number] Implanted:Qty: 1 on 01/12/2024 at [facility] Medtronic Inc 11/07/2025 NV-4-10- HELIX / / [id number] Medtronic Inc Coil Embolization Coated Detachable Helical Concerto 2ioq9xy Nylon Hu-9-8-Munday - [id number] Implanted:Qty: 1 on 01/12/2024 at [facility] Med[employer]onic Inc 06/16/2026 NV-4-8-H ELIX / / [id number] Explanted Type Area Front Office Developer Device Identifier Shelf Expiration Date Model / Serial / Lot [employer] Inc [id number] 6fr 22cm 145cm Radiopaque Positioner Filiform Flexible Tip - [id number] Implanted:Qty: 1 on 07/11/2023 by Dre Chu MD at [facility] Explanted:Qty: 1 on 07/25/2023 by Dre Chu MD Stent Right: Ureter [employer] [id number] 03/21/2026 [id number] / / [id number] [employer] [id number] 6fr 22cm 145cm Radiopaque Positioner Filiform Flexible Tip - [id number] Implanted:Qty: 1 on 07/25/2023 by Dre Chu MD at [facility] [facility] Explanted:08/09 by Landon Dickens MD (Quantity not on file) Right: U[employer] [id number] 03/21/2026 [id number] / / [id number] Description:Removed by patie nt via string [employer] [id number] 6fr 26cm 145cm Radiopaque Positioner Filiform Flexible Tip - [id number] Implanted:Qty: 1 on 09/03/2023 by Landon Dickens MD at [facility] Explanted:Qty: 1 on 09/08/2023 Right: Kidney [employer] [id number] 04/18/2026 [id number] / / [id number] Description:Removed by patie nt at home via string Procedures Procedure Name Priority Date/Time Associated Diagnosis Comments MEASURE POST VOID RESIDUAL Routine 01/22/2024 2:52 PM [employer]EARCH CONTRACTS SUPERVISOR BPH with obstruction/lower urinary tract symptoms EGFR Routine 01/12/2024 7:33 AM [employer]EARCH [employer] SUPERVISOR Atrial flutter, unspecified type (HCC) HEMOGLOBIN A1C Routine 07/09/2023 7:45 AM CDT LIPID PANEL Routine 06/09/2023 1:29 PM CDT Lipid screening ALBUMIN CREATININE RATIO, URINE Routine 02/01/2019 10:44 AM [employer]EARCH CONTRACTS SUPERVISOR Low back pain without sciatica, unspecified back pain laterality, unspecified chronicity from Last 3 Months or Most Recently Relevant to Health Maintenance Results * Measure post void residual (01/22/2024 2:52 PM [employer]EARCH CONTRACTS SUPERVISOR) Narrative Sarah Castro, A - 01/22/2024 2:52 PM [employer]EARCH [employer] SUPERVISOR Measurement of Post Void Residual urine and/or bladder capacity PVR = 50 ml Landon Dickens MD NURSING ASSESSMENTS Final Result * eGFR (01/12/2024 7:33 AM RESEARCH CONTRACTS SUPERVISOR) eGFR 62 >=60 mL/min/1. 73 m2 Comment: Interpretive Data Reference Interval Normal >/= 90 mL/min/1.73m2 Mildly decreased* 60 - 89 mL/min/1.73m2 Mildly to moderately decreased 45 - 59 mL/min/1.73m2 Moderately to severely decreased 30 - 44 mL/min/1.73m2 Severely decreased 15 - 29 mL/min/1.73m2 Kidney Failure < 15 mL/min/1.73m2 *Relative to young adult level Estimated glomerular filtration rate is determined by the 2020 CKD-EPI equation recommended by the National Kidney Foundation (A Unifying Approach to GFR Estimation: Recommendations of the NKF-ASK Task Force on Reassessing the Inclusion of Race in Diagnosing Kidney Disease, JASN 2020). The CKD-EPI equation should not be used for patients with unstable renal function and has not been validated in children and those over 70. Current interpretive data was last reviewed 2021. Blood 01/12/2024 7:33 AM RESEARCH CONTRACTS SUPERVISOR 01/12/2024 8:07 AM RESEARCH CONTRACTS SUPERVISOR us Alton Delaney MD LAB BLOOD ORDERABLES Final Result [facility] [place] [address] * (ABNORMAL) Hemoglobin A1c (07/09/2023 7:45 AM CDT) Hgb A1C 10.0(H) 4.0 - 5.6 % Estimated Average Glucose 240 mg/dL [facility] Comment: The ADA recommends reporting an estimated Average Glucose (eAG) with all Hemoglobin A1c results using the equation derived from a study of 507 normal and diabetic adults. Minority populations were underrepresented and children were not included. (Diabetes Care 31:5765-9178, 2008). The eAG is not equivalent to a fasting glucose. Blood 07/09/2023 7:45 AM CDT 07/09/2023 8:15 AM CDT us Aleksey Dawn MD LAB BLOOD ORDERABLES Final Result [facility] [id number] [facility] Department [place] [address] * Lipid panel (06/09/2023 1:29 PM CDT) Cholesterol 154 30 - 199 mg/dL Comment: Interpretive Data Ages < or = 19 years Acceptable: <170 mg/dL Borderline high: 170-199 mg/dL High: >or= 200 mg/dL Ages > or = 20 years Desirable: <200 mg/dL Borderline high: 200-239 mg/dL High: >or= 240 mg/dL Literature References: 1. Expert Panel on Integrated Guidelines for Cardiovascular Health and Risk Reduction in Children and Adolescents. Pediatrics 2011;128:S213 2. NCEP Expert Panel. Circulation 2004;110:227 Current Interpretive Data was last revised on 2017. Triglycerides 68 <=149 mg/dL PRATIBHA Comment: Interpretive Data Ages < or = 9 years Acceptable: <75 mg/dL Borderline high: 75-99 mg/dL High: >or= 100 mg/dL Ages 10 to 20 years Acceptable: <90 mg/dL Borderline high: 90-129 mg/dL High: >or= 130 mg/dL Ages > or = 20 years Desirable: <150 mg/dL Borderline high: 150-199 mg/dL High: 200-499 mg/dL Very high: >or= 499 mg/dL Literature References: 1. Expert Panel on Integrated Guidelines for Cardiovascular Health and Risk Reduction in Children and Adolescents. Pediatrics 2011;128:S213 2. NCEP Expert Panel. Circulation 2004;110:227 Current Interpretive Data was last revised on 2017. HDL 50 >=40 mg/dL PRAT[facility] Comment: Interpretive Data Ages < or = 19 years Acceptable: >45 mg/dL Borderline low: 40-45 mg/dL Low: <40 mg/dL Ages > or = 20 years Desirable: >or= 60 mg/dL Low: <40 mg/dL Literature References: 1. Expert Panel on Integrated Guidelines for Cardiovascular Health and Risk Reduction in Children and Adolescents. Pediatrics 2011;128:S213 2. NCEP Expert Panel. Circulation 2004;110:227 Current Interpretive Data was last revised on 2017. LDL, calculated 90 <=129 mg/dL PRAT[facility]HA MARS Comment: Interpretive Data Ages < or = 19 years Acceptable: <110 mg/dL Borderline high: 110-129 mg/dL High: >or= 130 mg/dL Ages > or = 20 years Optimal: <100 mg/dL Near optimal: 100-129 mg/dL Borderline high: 130-159 mg/dL High: >160 mg/dL Literature References: 1. Expert Panel on Integrated Guidelines for Cardiovascular Health and Risk Reduction in Children and Adolescents. Pediatrics 2011;128:S213 2. NCEP Expert Panel. Circulation 2004;110:227 Current Interpretive Data was last revised on 2017. Non-HDL Cholesterol 104 mg/dL [facility] MARS Comment: Interpretive Data Ages < or = 19 years Acceptable: <120 mg/dL Borderline high: 120-144 mg/dL High: >145 mg/dL Ages > or = 20 years When triglycerides are >200 mg/dL, Non-HDL cholesterol is a secondary target of therapy with treatment goals that are 30 mg/dL greater than the LDL cholesterol target. Literature References: 1. Expert Panel on Integrated Guidelines for Cardiovascular Health and Risk Reduction in Children and Adolescents. Pediatrics 2011;128:S213 2. NCEP Expert Panel. Circulation 2004;110:227 Current Interpretive Data was last revised on 2017. Chol/HDL ratio 3 [facility] Blood 06/09/2023 1:29 PM CDT 06/09/2023 1:50 PM CDT Narrative [facility] - 06/09/2023 2:27 PM CDT Has the patient been fasting for 8 hours or more?->Yes us Gavino Dewey MD LAB BLOOD ORDERABLES Fi nal Result [facility] [id number] [facility] Department [place] [address] * Albumin Creatinine Ratio, Urine (02/01/2019 10:44 AM RESEARCH CONTRACTS SUPERVISOR) Creatinine ur 151.4 Not Estab. mg/dL [facility] - 01 Microalbumin, ur 12.6 Not Estab. ug/mL [facility] - 01 Microalbumin/cre at ratio 8.3 0.0 - 30.0 mg/g creat [facility] - 01 Comment: Normal: 0.0 - 30.0 Albuminuria: 31.0 - 300.0 Clinical albuminuria: >300.0 Urine 02/01/2019 10:4 4 AM RESEARCH CONTRACTS SUPERVISOR 02/01/2019 Narrative [facility] - 02/05/2019 12:08 PM RESEARCH CONTRACTS SUPERVISOR Performed at: - [facility] [address] [id number] Channel Executive: Percy Aguilar PhD, Phone: [phone] Margarita Jaimes MD LAB URINE ORDERABLES Final Result Performing Organization Address City/State/[facility] Co or Phone Number [facility] from Last 3 Months or Most Recently Relevant to Health Maintenance Additional Health Concerns Infection Onset Date Last Indicated MDR gram neg/ESBL Comment:Contact 09/10/2021 10/19/2023 [place] [address] MEDICARE [facility] MEDICARE SUPPLEMENT MEDICARE [facility] MEDICARE BLUE CROSS MEDICARE SUPPLEMENT Advance Directives For more information, please contact: [phone] Documents on File Type Date Recorded Patient Launch Check Out Expl anation ADVANCE DIRECTIVE 10/21/2023 1:10 PM POLST - Phys Order for PT Preferences ADVANCE DIRECTIVE 09/19/2021 4:04 PM POLST - Phys Order for PT Preferences ADVANCE DIRECTIVE 06/01/2021 3:02 PM Power of Cargo And Ramp Services Manager-Medical ADVANCE DIRECTIVE 03/18/2019 3:08 PM Power of Cargo And Ramp Services Manager - Medical * Full Code (Latest Code Status on File) Date Activated Date Inactivated Comments 01/12/2024 8:07 AM 01/13/2024 5:13 AM * LIMITED - No CPR Date Activated Date Inactivated Comments 07/10/2023 11:23 AM 07/28/2023 3:42 PM Question Answer Comments Provide aggressive medical m anagement before a full cardiopulmonary arrest occurs. Use antibiotics, IV Fluids, and medical treatment unless specifically selected below: No intubationNo non-invasive ventilationNo cardioversionNo internal / external pacemakerNo vasopressors * LIMITED - No CPR Date Activated Date Inactivated Comments 07/09/2023 12:58 AM 07/10/2023 11:23 AM Question Answer Comments Provide aggressive medical m anagement before a full cardiopulmonary arrest occurs. Use antibiotics, IV Fluids, and medical treatment unless specifically selected below: No intubationNo non-invasive ventilation * LIMITED - No CPR Date Activated Date Inactivated Comments 04/04/2023 2:46 AM 04/08/2023 8:06 PM Question Answer Comments Provide aggressive medical m anagement before a full cardiopulmonary arrest occurs. Use antibiotics, IV Fluids, and medical treatment unless specifically selected below: No non-invasive ventilationNo intubationNo cardioversionNo internal / external pacemaker * Comfort Care Only - DO NOT Resuscitate Date Activated Date Inactivated Comments 04/03/2023 10:03 PM 04/04/2023 2:46 AM Care Teams [employer] Relationship Specialty Start Date End Date Tiana Hilario, OPEN END SPINNING OPERATOR [id number] [place] [address] PCP - General Geriatric Medicine 01/12/24 Margarita Jaimes MD Referring Physician Endocrinology Diabetes & Metabolism 08/30/19 Jeevan Gibson MD PhD Referring Physician Cardiology 02/22/20 Oul Reis MD Referring Physician Cardiology 02/22/20 Brant Rodriguez DPM Referring Physician Podiatry 02/22/20 Cathi Freeman MD [address] [facility] [id number] [place] [address] Referring Physician Geriatric Medicine 10/09/20
--- OUTSIDE RECORDS SUMMARY | 2024-04-18 12:22 | XMS_ITS | Referral Summary ---
Author Organization [facility] Carolina Lenz Exte nsion Address [address] [facility] [place] [address] Care Team Providers Care Batter Mixer Name Role Phone Margarita Jaimes MD Unavailable [phone] Jeevan Gibson MD PhD Unavailable [phone] Olu Reis MD Unavailable [phone] Brant Rodriguez DPM Unavailable [phone] Cathi Freeman MD Unavailable Tiana Hilario NP Primary Care Provider [phone] Encounters Date Type Department Care Team Description 02/17/2024 11:00 AM CONTROL CHEMIST Office Visit [facility] Radiology, Interventional Radiology [address] [place] [address] Elizabeth Vela PA BPH with obstruction/lower urinary tract symptoms (Primary Dx); Frequent UTI; Urinary retention 01/22/2024 Telephone [facility] Radiology [address] [place] [address] Franci Luciano, ROLF 01/22/2024 3:40 PM CONTROL CHEMIST Office Visit [facility] Surgery [address] [place] [address] [place] [phone] Landon Dickens MD BPH with obstruction/lower urinary tract symptoms (Primary Dx) 01/20/2024 Orders Only [facility] Cardiology [address] [place] [address] [address] [place] [phone] Jared Hernandez MD Complete atrioventricular block (CMS/HCC) (HCC) (Primary Dx); SSS (sick sinus syndrome) (CMS/HCC) (HCC); Cardiac resynchronization therapy pacemaker (FUR LINER-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; Permanent atrial fibrillation (CMS/HCC) (HCC); Sinus node dysfunction (CMS/HCC) (HCC) 01/20/2024 12:30 PM CONTROL CHEMIST Ancillary Procedure [facility] Cardiology [address] [place] [address] [address] [place] [phone] SSS (sick sinus syndrome) (CMS/HCC) (HCC); Complete atrioventricular block (CMS/HCC) (HCC); Cardiac resynchronization therapy pacemaker (FUR LINER-P) in place; Permanent atrial fibrillation (CMS/HCC) (HCC); Atrial flutter, unspecified type (HCC) 01/20/2024 1:00 PM CONTROL CHEMIST Office Visit [facility] Cardiology [address] [place] [address] [phone] Jared Hernandez MD Complete atrioventricular block (CMS/HCC) (HCC) (Primary Dx); Cardiac resynchronization therapy pacemaker (FUR LINER-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; PVC's (premature ventricular contractions); Permanent atrial fibrillation (CMS/HCC) (HCC) from Last 3 Months Allergies Active Allergy Reactions Criticality Noted Date [...] (50 mg total) by mouth nightly PER [facility] MEDICATION LIST Active docusate sodium (COLACE) 100 [...] extended release tabletIndications:Ca rdiac resynchronization therapy pacemaker (FUR LINER-P) in place,PVC's (premature ventricular contractions),Perman ent atrial fibrillation (CMS/HCC) (HCC) Take 1 tablet (25 mg total) by mouth daily 90 tablet 3 01/20/20 24 025 Active Active Problems Problem Noted Date Diagnosed Date Palliative care by specialist 07/10/2023 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 Dr. Dickens does recommend custodial helton but patient is resistant at this [...] . Assessment & Plan (04/29/2022 12:59 PM CONTROL CHEMIST): -Has had 1 confirmed, possibly 2-3 other [...] apixaban Assessment & Plan (05/17/2021 10:47 AM CONTROL CHEMIST): Assessment/plan: Continue ASA and statin therapy. Bilateral [...] lispro. Assessment & Plan (05/17/2021 10:46 AM CONTROL CHEMIST): Assessment/plan: Insulin strict glucose control Assessment & [...] 0 11/03/2017 Basal cell carcinoma (BCC) of zoroastrian region 10/2017 Basal cell carcinoma (BCC) of [...] supplement Assessment & Plan (02/23/2020 10:37 AM CONTROL CHEMIST): Continue daily supplement Assessment & Plan (09/01/2019 8:28 AM CDT): Continue supplement Assessment & Plan (01/19/2019 1:00 PM CONTROL CHEMIST): Continue supplement, recheck labs Assessment & Plan (07/03/2018 9:35 AM CDT): Continue supplement History of fall 06/20/2015 Assessment & Plan (08/15/2023 1:04 PM CDT): Patient did slip from bed 08/12 & has been complaining of L rib pain since. Will obtain XR to ro. He does report better but asking for XR. Assessment & Plan (05/19/2020 5:35 AM CONTROL CHEMIST): Patient has a history of falls and [...] have this information as she meets w [facility] for future planning. Cont rx lexapro [...] regimen. Assessment & Plan (04/27/2019 12:44 PM CONTROL CHEMIST): Hypertension is controlled. Continue current regimen. Assessment [...] neoplasm of prostate 08/07/2010 Complete atrioventricular block ([facility]/HCC) 2010 Assessment & Plan (11/26/2017 7:06 AM CDT): S/P pacemaker. Follow with cardiology. Atrial flutter ([facility]) 07/24/2010 SSS (sick sinus syndrome) ([facility]) Chronic combined systolic an d diastolic congestive heart failure ([facility]) Assessment & Plan (10/07/2023 4:18 PM CDT): [...] & helton 09/11. Urology is not wanting custodial helton but patient is not. Will discuss [...] 02/23/2023 Assessment & Plan (05/17/2021 10:51 AM CONTROL CHEMIST): Assessment/plan: Pressure ulceration the lateral ankles likely from his bed. Continue local wound care with Betadine paint and offloading. Eventually he will likely need an MRI to rule out osteomyelitis. Cognitive communication deficit 03/09/2021 07/31/2023 Myalgia 04/27/2019 02/23/2023 Dermatitis 04/27/2019 02/23/2023 Assessment & Plan (04/27/2019 1:50 PM CONTROL CHEMIST): No evidence of cellulitis. Moisturize with vaseline. Use OTC cortisone OTC. Acute cystitis 01/20/2019 07/31/2023 Low back pain 01/19/2019 09/22/2023 Assessment & Plan (01/19/2019 1:19 PM CONTROL CHEMIST): Will check urinalysis with reflex to culture [...] time Assessment & Plan (02/23/2020 10:38 AM CONTROL CHEMIST): Glucoses a little high, but he has [...] labs Assessment & Plan (01/19/2019 1:00 PM CONTROL CHEMIST): Glucoses within a good margin of safety, but a little high so he would benefit from a little more basal insulin Assessment & Plan (07/03/2018 9:35 AM CDT): Mild hyperglycemia, but maintaining a good margin of safety. I would not change therapy at this time Muscle weakness of lower extremity 03/20/2016 02/23/2023 Vascular dementia 06/20/2015 02/23/2023 Assessment & Plan (05/19/2020 5:38 AM CONTROL CHEMIST): Patient may experience some deficits with stress or electrolyte disturbances as was with his left leaning episodes. Will continue to monitor and emphasize safety to family. Assessment & Plan (02/23/2020 10:37 AM CONTROL CHEMIST): He is supported by his . Need to minimize risk of hypoglycemia Dysphagia 06/30/2014 09/08/2023 Assessment & Plan (05/19/2020 5:36 AM CONTROL CHEMIST): Patient is having chocking episodes and the [...] trazodone. Assessment & Plan (05/19/2020 5:31 AM CONTROL CHEMIST): As the patient continues to have functional [...] hour care. PAF (paroxysmal atrial fibri llation) ([facility]) 07/24/2013 09/17/2022 Overview (06/14/2016): ATRIAL FIBRILLATION Assessment & Plan (05/17/2021 10:46 AM CONTROL CHEMIST): Assessment/plan: Metoprolol Assessment & Plan (04/27/2019 12:44 PM CONTROL CHEMIST): Continue rate control. Continue anticoagualtion. Assessment & Plan (12/04/2018 1:38 PM CDT): Continue metoprolol. S/p pacemaker. Assessment & Plan (11/26/2017 7:05 AM CDT): Continue rate control. Continue anticoagualtion. Diabetic hypoglycemia ([facility]) 03/26/2013 02/23/2023 Pacemaker at end of battery life 10/27/2012 07/31/2023 Skin callus 05/04/2012 09/29/2023 Onychomycosis due to dermatophyte 05/04/2012 02/23/2023 BPH with obstruction/lower u rinary tract symptoms 02/23/2023 Assessment & Plan (04/29/2022 12:57 PM CONTROL CHEMIST): -On flomax. -PVR today was 13 mL. [...] producing bacteria infection 07/31/2023 Memory loss 07/31/2023 Immunizations Name Administration Dates Next Due Influenza, Quadrivalent, Hig h Dose, Preservative Free, Intrr 02/28/2023,12/29/2019 Influenza, Quadrivalent, Spl it, Intramuscular 03/14/2014 Influenza, Quadrivalent, Spl it, Preservative Free, Intramuscular 02/06/2016 Influenza, Trivalent, High D ose, Split, Preservative Free, Intramuscular 12/04/2018,01/23/2018,12/20/2016,12/29 Influenza, Trivalent, Preser vative Free, Intramuscular 02/06/2016,12/16/2012 Pneumococcal Conjugate PCV 13 07/17/2015 Pneumococcal Polysaccharide PPV23 11/15/2010 Social History Tobacco Use Types Packs/Day Years Used Date Smoking Tobacco: Never Smokeless Tobacco: Never Tobacco Cessation:Counseling Given: Not Answered Alcohol Use Standard Drinks/Week Comments Not Currently 0 (1 standard drink = 0.6 oz pur e alcohol) [facility] Utilities Answer Date Recorded In the past 12 months has [employer], gas, oil, or water Placed threatened to shut off services in your [...] often do you attend chur ch or christian services? Never 07/09/2023 Do you belong to any clubs o r organizations such as pentecostal groups, unions, fraternal or athletic groups, or [...] place to sleep or slept in a chcf (including now)? No 07/09/2023 Personal Safety Answer Date Recorded Have you ever been in or are you currently in a harmful physical or emotional relationship or is someone making you feel afraid or unsafe? Denies 01/12/2024 Sex and Gender Information Value Date Recorded Sex Assigned at Male 05/11/2018 9:16 AM CONTROL CHEMIST Legal Sex Male 1:34 AM CONTROL CHEMIST Gender Identity Not on file Sexual Orientation Straight 05/11/2018 9 :16 AM CONTROL CHEMIST Last Filed Vital Signs Vital Sign Reading Time Taken Comments Blood Pressure 104/60 01/20/2024 12:35 PM CONTROL CHEMIST Pulse 64 01/20/2024 12:35 PM CONTROL CHEMIST Temperature 36 C (96.8 F) 01/12/2024 1:05 PM CONTROL CHEMIST Respiratory Rate 14 01/12/2024 2:10 PM CONTROL CHEMIST Oxygen Saturation 99% 01/20/2024 12:35 PM CONTROL CHEMIST Inhaled Oxygen Concentration - - Weight 108 kg (238 lb) 02/17/2024 11:07 AM CONTROL CHEMIST Height 190.5 cm (6' 3 ) 02/17/2024 11:07 AM CONTROL CHEMIST Body Mass Index 29.75 02/17/2024 11:07 AM CONTROL CHEMIST Plan of Treatment Not on file Medical Devices Implanted Type Area Research Subject Device Identifier Shelf Expiration Date Model / Serial / Lot Pacemaker Pacemaker Left: Chest Lead Pacing Acuity X4 Irox [id number] Titanium Dexamethasone Acetate 4 Cm Space L95 Cm Od3.9-5.2 Fr Odsec2.6 Fr Left Ventricular Otw Quadripolar Long Straight Taper Tip Accept .081 In Guide Catheter Is4-Ll Implanted:Qty: 1 on 06/06/2022 by Jared Hernandez MD at [facility] [employer] Anisha [id number] 08/21/2023 [id number] / [id number] / [place] [employer] C.R.M. Valitude X4 Latitude Nxt Hf Perspectiv Easyview 2.6fr 4.45x6.17cm U128 - [id number] - [id number] Implanted:Qty: 1 on 06/06/2022 by Jared Hernandez MD at [facility] [employer] C.[employer].M. [id number] 10/04/2023 28 / [id number] / Med[employer] Inc Tyrx Absorbable Antibacterial Envelope-Large 3.3x2.9in [id number] - [id number] Implanted:Qty: 1 on 06/06/2022 by Jared Hernandez MD at [facility] [employer] [id number] / / JANZZ Anisha Angio-Seal Vip 6fr Closere Device [id number] - [id number] Implanted:Qty: 1 on 01/12/2024 at [facility] [employer] Anisha 05/11/2024 [id number] / / [id number] Skiin Fundementals Coil Embo Detach Soft Embold 2bsz4vv Sterile Latex-Free [id number] - [id number] Implanted:Qty: 1 on 01/12/2024 at [facility] [employer] Anisha 07/09/2026 [id number] / / [id number] [employer] Embosphere Prefill Saline Syringe Compressible Nonaggregate S420gh - [id number] Implanted:Qty: 1 on 01/12/2024 at [facility] [employer] 10/23/2026 [id number] / / [id number] Medtronic Inc Coil Embolization Coated Detachable Helical Concerto [id number] Nylon De-5-70-[place] - [id number] Implanted:Qty: 1 on 01/12/2024 at [facility] [employer] 11/07/2025 NV-4-10- HELIX / / [id number] Med[employer]onic Inc Coil Embolization Coated Detachable Helical Concerto [id number] Nylon Ae-6-7-[place] - [id number] Implanted:Qty: 1 on 01/12/2024 at [facility] [employer] 06/16/2026 NV-4-8-H ELIX / / [id number] Explanted Type Area Research Subject Device Identifier Shelf Expiration Date Model / Serial / Lot [employer] [id number] 6fr 22cm 145cm Radiopaque Positioner Filiform Flexible Tip - [id number] Implanted:Qty: 1 on 07/11/2023 by Dre Chu MD at [facility] Explanted:Qty: 1 on 07/25/2023 by Dre Chu MD Stent Right: Ureter [employer] [id number] 03/21/2026 [id number] / / [id number] [employer] [id number] 6fr 22cm 145cm Radiopaque Positioner Filiform Flexible Tip - [id number] Implanted:Qty: 1 on 07/25/2023 by Dre Chu MD at [facility] Explanted:08/09 by Landon Dickens MD (Quantity not on file) Right: Ureter [employer] [id number] 03/21/2026 [id number] / / [id number] Description:Removed by patie nt via string [employer] [id number] 6fr 26cm 145cm Radiopaque Positioner Filiform Flexible Tip - [id number] Implanted:Qty: 1 on 09/03/2023 by Landon Dickens MD at [facility] Explanted:Qty: 1 on 09/08/2023 Right: Kidney [employer] [id number] 04/18/2026 [id number] / / [id number] Description:Removed by patie nt at home via string Procedures Procedure Name Priority Date/Time Associated Diagnosis Comments MEASURE POST VOID RESIDUAL Routine 01/22/2024 2:52 PM CONTROL CHEMIST BPH with obstruction/lower urinary tract symptoms EGFR Routine 01/12/2024 7:33 AM CONTROL CHEMIST Atrial flutter, unspecified type (HCC) HEMOGLOBIN A1C Routine 07/09/2023 7:45 AM CDT LIPID PANEL Routine 06/09/2023 1:29 PM CDT Lipid screening ALBUMIN CREATININE RATIO, URINE Routine 02/01/2019 10:44 AM CONTROL CHEMIST Low back pain without sciatica, unspecified back pain laterality, unspecified chronicity from Last 3 Months or Most Recently Relevant to Health Maintenance Results * Measure post void residual (01/22/2024 2:52 PM CONTROL CHEMIST) Narrative Sarah Castro, RMA - 01/22/2024 2:52 PM CONTROL CHEMIST Measurement of Post Void Residual urine and/or bladder capacity PVR = 50 ml us Landon Dickens MD NURSING ASSESSMENTS Final Result * eGFR (01/12/2024 7:33 AM CONTROL CHEMIST) eGFR 62 >=60 mL/min/1. 73 m2 Comment: [...] last reviewed 2021. Blood 01/12/2024 7:33 AM CONTROL CHEMIST 01/12/2024 8:07 AM CONTROL CHEMIST us Alton Delaney MD LAB BLOOD ORDERABLES Final Result [facility] [address] [facility] Department [place] [address] * (ABNORMAL) Hemoglobin A1c (07/09/2023 7:45 AM CDT) Hgb A1C 10.0(H) 4.0 - 5.6 % Estimated Average Glucose 240 mg/dL [facility] Comment: The ADA recommends reporting an estimated Average Glucose (eAG) with all Hemoglobin A1c results using the equation derived from a study of 507 normal and diabetic adults. Minority populations were underrepresented and children were not included. (Diabetes Care 31:0786-2712, 2008). The eAG is not equivalent to a fasting glucose. Blood 07/09/2023 7:45 AM CDT 07/09/2023 8:15 AM CDT Aleksey Dawn MD LAB BLOOD ORDERABLES Final Result [facility] [address] [facility] Department [place] [address] * Lipid panel (06/09/2023 1:29 PM CDT) [...] on 2017. Triglycerides 68 <=149 mg/dL [facility] MARS Comment: Interpretive Data Ages [...] on 2017. HDL 50 >=40 mg/dL [facility] MARS Comment: Interpretive Data Ages [...] 2017. LDL, calculated 90 <=129 mg/dL [facility] Comment: Interpretive Data Ages < [...] on 2017. Non-HDL Cholesterol 104 mg/dL [facility] Comment: Interpretive Data Ages < [...] been fasting for 8 hours or more?->Yes Gavino Nely Dewey MD LAB BLOOD ORDERABLES Fi nal Result Performing Organization Address City/State/[facility] Co de Phone Number [facility] [address] [facility] Department [place] [address] * Albumin Creatinine Ratio, Urine (02/01/2019 10:44 AM CONTROL CHEMIST) Creatinine ur 151.4 Not Estab. mg/dL [facility] - 01 Microalbumin, ur 12.6 Not Estab. ug/mL [facility] - 01 Microalbumin/cre at ratio 8.3 0.0 - 30.0 mg/g creat [facility] - 01 Comment: Normal: 0.0 - 30.0 Albuminuria: 31.0 - 300.0 Clinical albuminuria: >300.0 Urine 02/01/2019 10:4 4 AM CONTROL CHEMIST 02/01/2019 Narrative [facility] - 02/05/2019 12:08 PM CONTROL CHEMIST Performed at: [address] [place], [place] [id number] System Auditor: Percy Aguilar PhD, Phone: [phone] Margarita Jaimes MD LAB URINE ORDERABLES Final Result Performing Organization Address City/[facility] Co de Phone Number [facility] - 01 from Last 3 Months or Most Recently Relevant to Health Maintenance Additional Health Concerns Infection Onset Date Last Indicated MDR gram neg/ESBL Comment:Contact 09/10/2021 10/19/2023 [place] [address] MEDICARE BLUE CROSS MEDICARE SUPPLEMENT MEDICARE [facility] MEDICARE [facility] [place] [address] [place] [address] Advance Directives For more information, please contact: [phone] Documents on File Type Date Recorded Patient Control Tower Radio Operator Expl anation ADVANCE DIRECTIVE 10/21/2023 1:10 PM POLST - Phys Order for PT Preferences ADVANCE DIRECTIVE 09/19/2021 4:04 PM POLST - Phys Order for PT Preferences ADVANCE DIRECTIVE 06/01/2021 3:02 PM Power of Industrial Economist-Medical ADVANCE DIRECTIVE 03/18/2019 3:08 PM Power of Industrial Economist - Medical * Full Code (Latest Code [...] 10:03 PM 04/04/2023 2:46 AM Care Teams Batter Mixer Relationship Specialty Start Date End Date Tiana Hilario, CASEWORK MANAGER [address] [place] [address] PCP - General Geriatric Medicine 01/12/24 Margarita Jaimes MD Referring Physician Endocrinology Diabetes & Metabolism 08/30/19 Jeevan Gibson MD PhD Referring Physician Cardiology 02/22/20 Olu Reis MD Referring Physician Cardiology 02/22/20 Brant Rodriguez DPM Referring Physician Podiatry 02/22/20 Cathi Freeman MD [address] [facility] [phone] [place] [address] Referring Physician Geriatric Medicine 10/09/20
[2024-04-18 13:48] LABS: Bacteria Urine 4+ /hpf; Non Pathogenic Casts 0-2; RBC Urine >100 /hpf (0-2); Squamous Epithelial Cell Urine None Seen /hpf (Few); WBC Urine >100 /hpf (0-3)
[2024-04-18 13:51] LABS: Add Urine Microscopic? YES; Appearance Urine Turbid (Clear); Bilirubin Urine Negative (Negative); Blood Urine 3+ (Negative); Color Urine Red (Yellow); Glucose Urine UA Negative (Negative); Ketones Urine Negative (Negative); Leukocyte Esterase Ur 3+ LEU/UL (Negative); Nitrate Urine Negative (Negative); Protein Urine 2+ mg/dL (Negative); Specific Grav Ur 1.009 (1.001-1.035); Urobilinogen Urine 0.2 mg/dL (<2.0)
[2024-04-18] MEDS: SULFAMETHOXAZOLE/TRIMETHOPRIM 800/160 MG DS TABLET 1 TAB PO (19:23)
== END 2024-04-18 19:36 ==
PROVIDERS: Emergency Provider Student in an Organized Health Care Education/Training Program; PCP Internal Medicine
DX: N39.0 Urinary tract infection, site not specified (principal); R31.9 Hematuria, unspecified; I48.0 Paroxysmal atrial fibrillation; I50.9 Heart failure, unspecified; E11.9 Type 2 diabetes mellitus without complications; Z79.01 Long term (current) use of anticoagulants; Z79.899 Other long term (current) drug therapy
CPT/HCPCS: 81001; 87086; 87186; 99283; A9270

== ENCOUNTER 2024-09-04 08:04 | Inpatient (IN) | payer MEDICARE, SELFPAY ==
--- NOTE | ~2024-09-04 | CT_ITS ---
EXAMINATION: CT brain wo con DATE: 09/04/2024 09:26 INDICATION: Altered mental status TECHNIQUE: Computed tomography (CT) of the head was performed without intravenous contrast. Sagittal and coronal reconstructions were performed. The mA was adjusted according to patient size. Iterative reconstruction technique was employed. The dose-length product was 681.00 mGy-cm. COMPARISON: head CT dated 03/12/2024 FINDINGS: No acute intracranial hemorrhage, acute infarction or abnormal extra axial fluid collection. Unchange d small old lacunar infarcts in the right basal ganglia and adjacent right frontal lobe keene radiat a. There is moderate scattered white matter hypoattenuation consistent with chronic small vessel isch emic disease. Symmetric prominence of the sulci and ventricles consistent with moderate to severe kirstie tral predominantage-appropriate diffuse cerebral volume loss. No mass/mass effect. The orbits, parana darryn sinuses and mastoid air cells are normal. IMPRESSION: 1. 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 No acute intracranial process. 2. Age-related changes including moderate severe central predominant diffuse volume loss and moderate scattered white matter hypoattenuation consistent with chronic small vessel ischemic disease. Reviewed, dictated and finalized at location A. IMPRESSION: 1. Unchanged old infarcts in the right basal ganglia and right frontal lobe cor hayden radiata. No acute intracranial process. 2. Age-related changes including moderate severe central predominant diffuse vo lume loss and moderate scattered white matter hypoattenuation consistent with c hronic small vessel ischemic disease.
--- NOTE | ~2024-09-04 | XR_ITS ---
EXAMINATION: XR chest 1V DATE: 09/04/2024 10:53 INDICATION: Altered mental status TECHNIQUE: frontal view of the chest was obtained. COMPARISON: Chest radiograph dated 11/18/23 FINDINGS: Linear discoid atelectasis/scarring in the right mid and upper lung zones. Blunting at the right cost ophrenic angle which could represent a small right pleural effusion or additional pleural parenchymal scarring. Left lung is clear. No pulmonary edema, pneumothorax or left-sided pleural effusion. Heart size is normal. Three lead pacemaker seen with leads projecting over the expected locations of the r ight atrial appendage, apex of the right ventricle and overlying the left ventricle likely having tra versed the coronary sinus. IMPRESSION: 1. Small right pleural effusion versus pleural parenchymal scarring at the right costophrenic angle w ith additional linear discoid atelectasis/scarring in the right mid and upper lung zones. Reviewed, dictated and finalized at location A. IMPRESSION: 1. Small right pleural effusion versus pleural parenchymal scarring at the righ t costophrenic angle with additional linear discoid atelectasis/scarring in the right mid and upper lung zones.
[2024-09-04 08:06] VITALS: BP 133/69; PULSE 71; RESP 18; TEMP 36.4; O2SAT 99
[2024-09-04 08:57] LABS: Add Urine Microscopic? YES; Appearance Urine Turbid (Clear); Glucose Urine UA Negative (Negative); Leukocyte Esterase Ur 3+ LEU/UL (Negative); Nitrate Urine Positive (Negative); Non Pathogenic Casts 0-2; Specific Grav Ur 1.011 (1.001-1.035)
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
[2024-09-04 10:01] LABS: Hematocrit 39.5 % (42.0-52.0); Hemoglobin 12.5 g/dL (14.0-18.0); Immature Granulocyte Percent A 0.3 % (0-0.5); Lymphocytes Absolute Auto 1.19 K/mm3 (0.9-3.2); Mean Corpuscular HGB Conc 31.6 g/dl (32-36); Mean Corpuscular Hemoglobin 30.6 pg (26-34); Mean Corpuscular Volume 96.6 fl (80-100); Nucleated Red Blood Cells Absolute Auto 0.000 K/mm3 (0.0-0.012); Nucleated Red Blood Cells Perc 0.0 % (0.0-0.2); Platelet Count Result 187 k/mm3 (150-375); Red Blood Count 4.09 M/mm3 (4.6-6.20); White Blood Count 6.4 K/mm3 (4.5-10.0)
[2024-09-04 10:13] LABS: Alanine Aminotransferase 15 U/L (6-50); Albumin Level 3.9 g/dL (3.5-5.1); Alkaline Phosphatase 71 U/L (38-126); Anion Gap 9 mmol/L (4-12); Aspartate Amino Transferase 24 U/L (17-59); Bilirubin,Total 0.4 mg/dL (0.2-1.3); Blood Urea Nitrogen 31 mg/dL (9-20); Calcium 9.3 mg/dL (8.4-10.2); Carbon Dioxide 31 mmol/L (22-30); Chloride 100 mmol/L (98-107); Estimated CRCL calculation 48 ml/min; Estimated Glomerular Filt Rate 59; Glucose 101 mg/dL (65-110); Potassium 4.2 mmol/L (3.4-5.0); Sodium 140 mmol/L (137-145); Total Protein 8.3 g/dL (6.3-8.2)
[2024-09-04] MEDS: MEROPENEM 1 GM/NS 100 ML 1 GM/100 ML BAG IVPB (11:18)
[2024-09-04 11:20] VITALS: BP 142/80; PULSE 70; RESP 20; O2SAT 100
[2024-09-04 11:42] LABS: Influenza A QL RT-PCR Negative (Negative); Influenza B QL RT-PCR Negative (Negative); RSV RNA, RT-PCR Negative (Negative); SARS-CoV-2 RNA PCR Negative (Negative)
--- NOTE | 2024-09-04 12:02 | P.HP_ITS ---
H&P: HPI History of Present Illness Date/Time: 09/04/24 12:02 Chief Complaint: UTI Narrative: 84-year-old male with a PMHx: of anemia, dementia, impaired mobility. Patient is being admitted for altered mental status per long term patient was becoming very combative with staff. Patient is unable to provide history, son by the bedside reports he was told by long term the patient was complaining of having difficulty with urination as well as increased agitation. He reports patient has a history of recurrent urinary tract infections. ED Work-up reveals: UA positive for blood, nitrates, leukocyte Esterase, >100 WBC, 4+ urine bacteria, viral PCR is negative. Chest x-ray reveals small right pleural effusion versus pleural parenchymal scarring at the right costophrenic angle with additional linear discoid atelectasis/scarring in the right mid and upper lung zones. Head CT reveals 1. 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 No acute intracranial process. 2. Age-related changes including moderate severe central predominant diffuse volume loss and moderate scattered white matter hypoattenuation consistent with chronic small vessel ischemic disease. Urine is indicative infection. Patient has history of ESBL that is only sensitive to meropenem. Patient started on meropenem. Will be admitted hospital for IV antibiotics. Review of Systems Review of Systems: ROS unobtainable: Yes unobtainable due to mental status PMFSH Social History Social History Smoking status: Never smoker Meds Home Medications and Allergies Home Medications ?Medication ?Instructions ?Recorded ?Confirmed ?Type divalproex 125 mg tablet,delayed 125 mg PO Q8H 10/29/23 09/04/24 History release (Depakote) albuterol sulfate 90 mcg/actuation 2 puff inhalation Q4H PRN 09/04/24 09/04/24 History aerosol inhaler shortness of breath apixaban 5 mg tablet (Eliquis) 5 mg PO BID 09/04/24 09/04/24 History citalopram 10 mg tablet 10 mg PO .bedtime 09/04/24 09/04/24 History finasteride 5 mg tablet 5 mg PO .evening 09/04/24 09/04/24 History insulin aspart U-100 100 unit/mL 1 sliding scale dose subcut 09/04/24 09/04/24 History subcutaneous solution (Novolog USEASDIRECTD U-100 Insulin aspart) methenamine hippurate 1 gram tablet 1 g PO BID 09/04/24 09/04/24 History metoprolol succinate 25 mg 25 mg PO DAILY 09/04/24 09/04/24 History tablet,extended release 24 hr omeprazole 20 mg capsule,delayed 20 mg PO DAILY 09/04/24 09/04/24 History release sacubitril 24 mg-valsartan 26 mg 1 tablet PO BID 09/04/24 09/04/24 History tablet (Entresto) spironolactone 25 mg tablet 25 mg PO DAILY 09/04/24 09/04/24 History torsemide 10 mg tablet 10 mg PO DAILY 09/04/24 09/04/24 History Allergies Allergy/AdvReac Type Severity Reaction Status Date / Time cephalexin Allergy Unknown Verified 09/04/24 11:17 Vital Signs Vital Signs - 24 hr 09/04/24 08:06 09/04/24 11:20 Temperature 97.5 F L Pulse Rate 71 70 Respiratory Rate 18 20 Blood Pressure 133/69 142/80 H Pulse Oximetry 99 100 Oxygen Delivery Room Air Exam Narrative: APPEARANCE: No apparent distress. Son by the bedside Head: atraumatic. EYES: EOMI, NOSE: Atraumatic NECK: Trachea midline RESPIRATORY: No increased rate of breathing clear to auscultation CARDIOVASCULAR: RRR, no peripheral edema ABDOMINAL: distended tender to palpation MUSCULOSKELETAl: No obvious deformities NEURO: Alert. Moving 4/4 extremities SKIN:: Warm, dry. Normal color PSYCHIATRIC: Normal affect H&P: Results Labs Labs: Short CBC 09/04/24 Range/Units 09:54 WBC 6.4 (4.5-10.0) K/mm3 Hgb 12.5 L (14.0-18.0) g/dL Hct 39.5 L (42.0-52.0) % Plt Count 187 (150-375) k/mm3 [facility] 09/04/24 09:54 Sodium 140 Potassium 4.2 Chloride 100 Carbon Dioxide 31 H BUN 31 H Creatinine 1.17 Glucose 101 Calcium 9.3 Liver Function 09/04/24 Range/Units 09:54 Total Bilirubin 0.4 (0.2-1.3) mg/dL AST 24 (17-59) U/L ALT 15 (6-50) U/L Alkaline Phosphatase 71 (38-126) U/L Albumin 3.9 (3.5-5.1) g/dL Urine 09/04/24 Range/Units 08:46 Urine Color Yellow (Yellow) Urine Appearance Turbid H (Clear) Urine pH 6.0 (5.0-9.0) Ur Specific [place] 1.011 (1.001-1.035) Urine Protein Trace (Negative) mg/dL Urine Glucose (UA) Negative (Negative) mg/dL Pulse Oximetry SpO2 results: 98%l RA Attestation: I personally reviewed and interpreted this pulse oximetry as follo ws: Assessment and Plan Assessment and plan (1) Acute UTI: Code(s): N39.0 - Urinary tract infection, site not specified Status: Acute Assessment and Plan: Urine is indicative infection. hx of ESBL that is only sensitive to meropenem. -continue 1 g meropenem Q 12 -monitor/record I&O -bladder scan q.8 p.r.n. 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: Code(s): Z22.358 - Carrier of other Enterobacterales Status: Acute Assessment and Plan: hx of ESBL urine cultures pending -start meropenem 1gm q 12 hrs (3) Dementia with psychosis: Code(s): F03.92 - Unspecified dementia, unspecified severity, with psychotic disturbance Status: Acute Assessment and Plan: -chronic -initiate safety precautions (4) Abnormality of gait: Code(s): R26.9 - Unspecified abnormalities of gait and mobility Status: Acute (5) Type 2 diabetes mellitus: Code(s): E11.9 - Type 2 diabetes mellitus without complications Status: Acute Assessment and Plan: Unknown last A1c -bedside glucose management -check A1c (6) Chronic systolic heart failure: Code(s): I50.22 - Chronic systolic (congestive) heart failure Status: Acute Assessment and Plan: chronic, stable -continue home medications Plan Continue home medications: hold methenamine (not on formulary) VTE Prophylaxis: Eliquis DIET: Regular Anticipated hospital stay: > 2 days Code Status: DNR Quality VTE Prophylaxis VTE prophylaxis: pharmacologic ordered Hospitalist [facility] Advance Care Plan I have confirmed that the patient's Advanced Care Plan is present, code status is documented, or surrogate decision maker is listed in patient medical record.: Yes Medication Reconciliation I have utilized all available resources to obtain, update and review the patients current medications (includes all prescriptions, OTC, herbals, cannabis, and nutritional supplements).: Yes
[2024-09-04 12:35] VITALS: PULSE 68; RESP 18; O2SAT 98
--- NOTE | 2024-09-04 12:41 | PC.NURSE ---
This RN called [facility] for nurse to nurse report and gave update on pt status and plan of care. Spoke to Consuelo.
[2024-09-04 14:00] VITALS: BP 130/45; PULSE 69; RESP 16; TEMP 36.1; O2SAT 100
[2024-09-04] MEDS: SODIUM CHLORIDE 0.9% IV 1,000 ML 100 ML IV CONT (15:06)
[2024-09-04] MEDS: DIVALPROEX SODIUM DR 125 MG TABEC PO ×2 (18:08→21:10)
[2024-09-04] MEDS: APIXABAN 5 MG TABLET PO (18:08)
[2024-09-04] MEDS: INSULIN ASPART (*BKC) 100 UNITS/ML SUB-Q (18:09)
[2024-09-04] MEDS: CITALOPRAM HYDROBROMIDE 10 MG TABLET PO (21:10)
[2024-09-04] MEDS: FINASTERIDE 5 MG TABLET PO (21:10)
[2024-09-04] MEDS: SACUBITRIL/VALSARTAN 24-26 MG TABLET 1 TAB PO (21:10)
[2024-09-04 22:19] VITALS: BP 141/78; PULSE 94; RESP 18; TEMP 36.3; O2SAT 93
[2024-09-05] MEDS: MEROPENEM 1 GM/NS 100 ML 1 GM/100 ML BAG IVPB ×3 (00:03→21:40)
[2024-09-05] MEDS: DIVALPROEX SODIUM DR 125 MG TABEC PO ×3 (06:02→21:28)
[2024-09-05 06:05] VITALS: BP 125/55; PULSE 70; RESP 13; TEMP 36.2; O2SAT 97
[2024-09-05 07:10] LABS: Hematocrit 36.4 % (42.0-52.0); Hemoglobin 11.5 g/dL (14.0-18.0); Immature Granulocyte Percent A 0.4 % (0-0.5); Lymphocytes Absolute Auto 1.55 K/mm3 (0.9-3.2); Mean Corpuscular HGB Conc 31.6 g/dl (32-36); Mean Corpuscular Hemoglobin 30.3 pg (26-34); Mean Corpuscular Volume 96.0 fl (80-100); Nucleated Red Blood Cells Absolute Auto 0.000 K/mm3 (0.0-0.012); Nucleated Red Blood Cells Perc 0.0 % (0.0-0.2); Platelet Count Result 190 k/mm3 (150-375); Red Blood Count 3.79 M/mm3 (4.6-6.20); White Blood Count 8.5 K/mm3 (4.5-10.0)
[2024-09-05 07:21] LABS: Anion Gap 7 mmol/L (4-12); Blood Urea Nitrogen 27 mg/dL (9-20); Calcium 8.9 mg/dL (8.4-10.2); Carbon Dioxide 27 mmol/L (22-30); Chloride 103 mmol/L (98-107); Estimated CRCL calculation 53 ml/min; Estimated Glomerular Filt Rate > 60; Glucose 172 mg/dL (65-110); Potassium 4.2 mmol/L (3.4-5.0); Sodium 137 mmol/L (137-145)
[2024-09-05 07:35] LABS: Hemoglobin A1C 7.6 % (<5.7)
[2024-09-05] MEDS: SODIUM CHLORIDE 0.9% IV 1,000 ML 100 ML IV CONT (08:06)
[2024-09-05 08:08] VITALS: PULSE 70
[2024-09-05] MEDS: METOPROLOL SUCCINATE EXT REL 25 MG TABCR PO (08:08)
[2024-09-05] MEDS: SPIRONOLACTONE 25 MG TABLET PO (08:08)
[2024-09-05] MEDS: TORSEMIDE 10 MG TABLET PO (08:08)
[2024-09-05] MEDS: APIXABAN 5 MG TABLET PO ×2 (08:08→16:07)
[2024-09-05] MEDS: SACUBITRIL/VALSARTAN 24-26 MG TABLET 1 TAB PO ×2 (08:08→21:28)
[2024-09-05] MEDS: PANTOPRAZOLE 40 MG TABLET PO (08:08)
--- NOTE | 2024-09-05 09:31 | PM.IMPN ---
Progress Note: A&P Assessment and Plan (1) Acute UTI: Code(s): N39.0 - Urinary tract infection, site not specified Status: Acute Assessment and Plan: Patient presented with altered mental status and grossly abnormal UA as well as foul-smelling urine. He is unable to indicate any acute urinary symptoms. WBC is within normal limits. He is afebrile. Urine culture is pending at this time. Currently on meropenem given history of ESBL. This may indicate asymptomatic bacteriuria versus colonization, however given he is unable to provide reliable history, will continue with antibiotics pending urine culture. Monitor urine output He is on methenamine hippurate in for recurrent UTIs. This is non formulary. 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 halfway resident. Mental status is stable at this time with no acute disturbance (4) Type 2 diabetes mellitus: Code(s): E11.9 - Type 2 diabetes mellitus without complications Status: Acute Assessment and Plan: A1c is 7.6. Blood sugar stable during admission. Continue sliding scale insulin, hypoglycemic protocol, diabetic diet. Monitor glucose trends (5) Chronic systolic heart failure: Code(s): I50.22 - Chronic systolic (congestive) heart failure Status: Acute Assessment and Plan: Not in acute exacerbation. Continue home medications including metoprolol, Entresto, spironolactone (6) BPH (benign prostatic hyperplasia): Code(s): N40.0 - Benign prostatic hyperplasia without lower urinary tract symptoms Status: Suspected Assessment and Plan: Suspected BPH given patient is on finasteride. Check bladder scan to ensure he is emptying well. Incomplete emptying can contribute to UTI. Subjective Date/time seen: 09/05/24 09:31 Interval history: Patient is doing well at this time. He is currently eating breakfast. He denies any pain. Denies nausea, vomiting, fever, or chills. Denies shortness of breath, cough, or chest pain. Denies headache, dizziness, lightheadedness. He is unable to indicate any bothersome urinary symptoms. He states he has not urinated since he has been here and he is not sure if he is using depends or how he is voiding. Reports no bowel movements since admission. He is reportedly A&O x1 at baseline. Today he is able to states that he is at [facility] and knows the month and year after 1 missed attempt. He becomes easily frustrated by being asked questions. Review of Systems Review of Systems: All systems reviewed & are unremarkable except as noted in HPI and below Exam Narrative: Neuro: awake, alert and oriented x2, speech clear, no focal neuro deficits noted HEENMT: normocephalic, atraumatic, EOMI, sclerae anicteric, moist oral mucosa Neck: supple, no lymphadenopathy Respiratory: Post expiratory wheeze bilaterally, no crackles or rhonchi, nonlabored breathing Cardio: regular rate, regular rhythm Abdomen: nondistended, normoactive bowel sounds, soft, nontender to palpation Extremities: no edema, erythema, cyanosis, clubbing, or tenderness to palpation, DP pulses 2+ bilaterally Skin: no rashes or lesions, warm and dry Psych: appropriate mood and affect, no agitation, judgment and insight intact Objective Data Vital Signs Vital Signs: Vital Signs - 24 hr 09/04/24 11:20 09/04/24 12:35 09/04/24 14:00 Temperature 96.9 F L Pulse Rate 70 68 69 Respiratory Rate 20 18 16 Blood Pressure 142/80 H 130/45 L Pulse Oximetry 100 98 100 Oxygen Delivery 09/04/24 21:10 09/04/24 22:19 09/05/24 06:05 Temperature 97.4 F L 97.2 F L Pulse Rate 94 70 Respiratory Rate 18 13 Blood Pressure 141/78 H 125/55 L Pulse Oximetry 93 97 Oxygen Delivery Room Air 09/05/24 08:08 Temperature Pulse Rate 70 Respiratory Rate Blood Pressure Pulse Oximetry Oxygen Delivery Intake/Output Intake/Output: Intake & Output 09/02/24 09/03/24 09/04/24 09/05/24 23:59 23:59 23:59 23:59 Intake Total 100 1300 Balance 100 1300 Meds/Results Medications: Active Medications Generic Name Dose Route Start Last Admin Trade Name Freq PRN Reason Stop Dose Admin Albuterol 2 puff 09/04/24 13:51 Albuterol Sulfate (*Sp) Aerosol 1 Puff INHALATION Q4HRT PRN shortness of breath Apixaban 5 mg 09/04/24 17:00 09/05/24 08:08 Apixaban 5 Mg Tablet PO 5 mg BID KEITH Administration Citalopram Hydrobromide 10 mg 09/04/24 21:00 09/04/24 21:10 Citalopram Hydrobromide 10 Mg Tablet PO 10 mg HS KEITH Administration Dextrose 12.5 gm 09/04/24 14:08 Dextrose 50% 25 Gm/50 Ml Syringe IV PUSH PRN PRN Hypoglycemia Protocol Divalproex Sodium 125 mg 09/04/24 14:00 09/05/24 06:[address] 125 Mg Tabec PO 125 mg Q8HR KEITH Administration Finasteride 5 mg 09/04/24 21:00 09/04/24 21:10 Finasteride 5 Mg Tablet PO 5 mg HS KEITH Administration Glucagon 1 mg 09/04/24 14:08 Glucagon For Inj 1 Mg Vial IM PRN PRN Hypoglycemia Protocol Glucose 15 gm 09/04/24 14:08 Glucose Oral Gel 15 Gm Of Glucse In 37.5 Gm Tube PO PRN PRN Hypoglycemia Protocol Meropenem 1 gm in 100 mls @ 200 mls/hr 09/04/24 21:00 09/05/24 08:09 IVPB 200 mls/hr Q12HR KEITH Administration Sodium Chloride 1,000 mls @ 100 mls/hr 09/04/24 13:55 09/05/24 08:06 Normal Saline Iv IV CONT 100 mls/hr .Q10H KEITH Administration Dextrose 1,000 mls @ 100 mls/hr 09/04/24 14:08 Dextrose 5% 1,000 Ml IVPB PRN PRN Hypoglycemia Protocol Insulin Aspart 2 - 5 units 09/04/24 17:00 09/05/24 08:07 Insulin Aspart (*Bkc) 100 Units/Ml SUB-Q Not Given TIDWM KEITH Protocol Insulin Aspart 1 - 2 units 09/04/24 21:00 09/04/24 21:13 Insulin Aspart (*Bkc) 100 Units/Ml SUB-Q Not Given HS KEITH Protocol Metoprolol Succinate 25 mg 09/05/24 09:00 09/05/24 08:08 Metoprolol Succinate Ext Rel 25 Mg Tabcr PO 25 mg DAILY KEITH Administration Pantoprazole Sodium 40 mg 06/29/25 09:00 09/05/24 08:08 Pantoprazole 40 Mg Tablet PO 40 mg QAM KEITH Administration Sacubitril/Valsartan 1 tab 09/04/24 21:00 09/05/24 08:08 Sacubitril/Valsartan 24-26 Mg Tablet PO 1 tab Q12HR KEITH Administration Spironolactone 25 mg 09/05/24 09:00 09/05/24 08:08 Spironolactone 25 Mg Tablet PO 25 mg DAILY KEITH Administration Torsemide 10 mg 09/05/24 09:00 09/05/24 08:08 Torsemide 10 Mg Tablet PO 10 mg DAILY KEITH Administration Radiology Results: ITS Impressions Head CT 09/04/24 09:31 IMPRESSION: 1. 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 No acute intracranial process. 2. Age-related changes including moderate severe central predominant diffuse volume loss and moderate scattered white matter hypoattenuation consistent with chronic small vessel ischemic disease. Chest X-Ray 09/04/24 11:02 IMPRESSION: 1. Small right pleural effusion versus pleural parenchymal scarring at the right costophrenic angle with additional linear discoid atelectasis/scarring in the right mid and upper lung zones. Labs Labs: Laboratory Results - last 24 hr 09/04/24 09/04/24 09/04/24 09:54 11:02 16:46 WBC 6.4 RBC 4.09 L Hgb 12.5 L Hct 39.5 L MCV 96.6 MCH 30.6 MCHC 31.6 L RDW 12.9 Plt Count 187 MPV 10.4 Immature Gran % (Auto) 0.3 Neut % (Auto) 66.5 Lymph % (Auto) 18.5 Rooks % (Auto) 10.3 H Eos % (Auto) 3.6 Baso % (Auto) 0.8 Lymph # (Auto) 1.19 Rooks # (Auto) 0.7 H Eos # (Auto) 0.2 Baso # (Auto) 0.1 Abs Immat Gran (auto) 0.02 Absolute Neuts (auto) 4.3 Absolute Nucleated RBC 0.000 Nucleated RBC % 0.0 Sodium 140 Potassium 4.2 Chloride 100 Carbon Dioxide 31 H Anion Gap 9 BUN 31 H Creatinine 1.17 Estim Creat Clear Calc 48 Estimated GFR 59 Glucose 101 POC Capillary Glucose 212 H Hemoglobin A1c Lactic Acid 1.2 Calcium 9.3 Total Bilirubin 0.4 AST 24 ALT 15 Alkaline Phosphatase 71 Total Protein 8.3 H Albumin 3.9 Influenza A (RT-PCR) Negative Influenza B (RT-PCR) Negative RSV (RT-PCR) Negative SARS-CoV-2 RNA (RT-PCR) Negative 09/04/24 09/05/24 09/05/24 21:12 06:16 08:07 WBC 8.5 RBC 3.79 L Hgb 11.5 L Hct 36.4 L MCV 96.0 MCH 30.3 MCHC 31.6 L RDW 13.2 Plt Count 190 MPV 11.1 H Immature Gran % (Auto) 0.4 Neut % (Auto) 69.3 Lymph % (Auto) 18.3 Rooks % (Auto) 9.9 H Eos % (Auto) 1.7 Baso % (Auto) 0.4 Lymph # (Auto) 1.55 Rooks # (Auto) 0.8 H Eos # (Auto) 0.1 Baso # (Auto) 0.0 Abs Immat Gran (auto) 0.03 Absolute Neuts (auto) 5.9 Absolute Nucleated RBC 0.000 Nucleated RBC % 0.0 Sodium 137 Potassium 4.2 Chloride 103 Carbon Dioxide 27 Anion Gap 7 BUN 27 H Creatinine 1.07 Estim Creat Clear Calc 53 Estimated GFR > 60 Glucose 172 H POC Capillary Glucose 185 H 186 H Hemoglobin A1c 7.6 H Lactic Acid Calcium 8.9 Total Bilirubin AST ALT Alkaline Phosphatase Total Protein Albumin Influenza A (RT-PCR) Influenza B (RT-PCR) RSV (RT-PCR) SARS-CoV-2 RNA (RT-PCR) Quality VTE Prophylaxis VTE prophylaxis: pharmacologic ordered
[2024-09-05] MEDS: INSULIN ASPART (*BKC) 100 UNITS/ML SUB-Q ×2 (12:20→21:28)
[2024-09-05 14:00] VITALS: BP 112/47; PULSE 59; RESP 20; TEMP 36.1; O2SAT 96
[2024-09-05] MEDS: FINASTERIDE 5 MG TABLET PO (21:27)
[2024-09-05] MEDS: CITALOPRAM HYDROBROMIDE 10 MG TABLET PO (21:27)
[2024-09-05 22:00] VITALS: BP 144/58; PULSE 70; RESP 18; TEMP 36.4; O2SAT 98
[2024-09-06] MEDS: DIVALPROEX SODIUM DR 125 MG TABEC PO ×3 (06:15→21:59)
[2024-09-06 06:42] LABS: Hematocrit 37.3 % (42.0-52.0); Hemoglobin 11.8 g/dL (14.0-18.0); Immature Granulocyte Percent A 0.3 % (0-0.5); Lymphocytes Absolute Auto 1.85 K/mm3 (0.9-3.2); Mean Corpuscular HGB Conc 31.6 g/dl (32-36); Mean Corpuscular Hemoglobin 30.6 pg (26-34); Mean Corpuscular Volume 96.6 fl (80-100); Nucleated Red Blood Cells Absolute Auto 0.000 K/mm3 (0.0-0.012); Nucleated Red Blood Cells Perc 0.0 % (0.0-0.2); Platelet Count Result 176 k/mm3 (150-375); Red Blood Count 3.86 M/mm3 (4.6-6.20); White Blood Count 7.7 K/mm3 (4.5-10.0)
[2024-09-06 06:56] LABS: Anion Gap 7 mmol/L (4-12); Blood Urea Nitrogen 23 mg/dL (9-20); Calcium 8.9 mg/dL (8.4-10.2); Carbon Dioxide 27 mmol/L (22-30); Chloride 103 mmol/L (98-107); Estimated CRCL calculation 57 ml/min; Estimated Glomerular Filt Rate > 60; Glucose 172 mg/dL (65-110); Potassium 4.0 mmol/L (3.4-5.0); Sodium 137 mmol/L (137-145)
[2024-09-06] MEDS: SPIRONOLACTONE 25 MG TABLET PO (08:29)
[2024-09-06] MEDS: TORSEMIDE 10 MG TABLET PO (08:29)
[2024-09-06] MEDS: PANTOPRAZOLE 40 MG TABLET PO (08:29)
[2024-09-06] MEDS: APIXABAN 5 MG TABLET PO ×2 (08:29→17:22)
[2024-09-06 08:30] VITALS: PULSE 70
[2024-09-06] MEDS: METOPROLOL SUCCINATE EXT REL 25 MG TABCR PO (08:30)
[2024-09-06] MEDS: SACUBITRIL/VALSARTAN 24-26 MG TABLET 1 TAB PO ×2 (08:30→21:59)
[2024-09-06] MEDS: MEROPENEM 1 GM/NS 100 ML 1 GM/100 ML BAG IVPB ×3 (08:32→22:01)
[2024-09-06] MEDS: INSULIN ASPART (*BKC) 100 UNITS/ML SUB-Q (12:14)
--- NOTE | 2024-09-06 13:03 | P.PNIM_ITS ---
Progress Note: A&P Assessment and Plan (1) Acute UTI: Code(s): N39.0 - Urinary tract infection, site not specified Status: Acute Assessment and Plan: Patient presented with altered mental status and grossly abnormal UA as well as foul-smelling urine. WBC is within normal limits. He is afebrile. -Urine culture with gram neg bacilli. Currently on meropenem given history of ESBL. -This may indicate asymptomatic bacteriuria versus colonization, however given he is unable to provide reliable history, will continue with antibiotics pending urine culture. Monitor urine output -He is on methenamine hippurate in for recurrent UTIs. This is non formulary. Continue upon discharge -He is on Depakote for behavior problems, not seizures. Will not need to cover with Keppra due to seizure lowering threshold of taking Depakote with meropenem. 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 detention resident. -Mental status is stable at this time with no acute disturbance (4) Type 2 diabetes mellitus: Code(s): E11.9 - Type 2 diabetes mellitus without complications Status: Acute Assessment and Plan: -A1c is 7.6. Blood sugar stable during admission. Continue sliding scale insulin, hypoglycemic protocol, diabetic diet. Monitor glucose trends (5) Chronic systolic heart failure: Code(s): I50.22 - Chronic systolic (congestive) heart failure Status: Acute Assessment and Plan: -Not in acute exacerbation. Continue home medications including metoprolol, Entresto, spironolactone (6) BPH (benign prostatic hyperplasia): Code(s): N40.0 - Benign prostatic hyperplasia without lower urinary tract symptoms Status: Suspected Assessment and Plan: -Suspected BPH given patient is on finasteride. Check bladder scan to ensure he is emptying well. -Incomplete emptying can contribute to UTI. Subjective Date/time seen: 09/06/24 13:03 Interval history: Maida, AKAnh Bill, is being treated for UTI with meropenem due to history of E coli ESBL. She waiting on urine culture to finalize. He if he has similar infection he will likely need PICC line and home IV antibiotics at custodial. Waiting for culture to finalize and then he should be okay to discharge. Care coordination aware of this. Exam Narrative: GENERAL: Comfortable, no acute distress HENMT: moist mucous membranes EYES: EOM intact b/l NECK: no lymphadenopathy RESPIRATORY: clear to auscultation, no increased respiratory effort CARDIO: Regular rate and rhythm SKIN/EXTREMITIES: no rashes, no edema, no redness or tenderness NEURO: PROM intact, answers questions appropriately Objective Data Vital Signs Vital Signs: Vital Signs - 24 hr 09/05/24 14:00 09/05/24 21:40 09/05/24 22:00 Temperature 96.9 F L 97.6 F Pulse Rate 59 L 70 Respiratory Rate 20 18 Blood Pressure 112/47 L 144/58 H Pulse Oximetry 96 98 Oxygen Delivery Room Air 09/06/24 08:00 09/06/24 08:30 Temperature Pulse Rate 70 Respiratory Rate Blood Pressure Pulse Oximetry Oxygen Delivery Room Air Intake/Output Intake/Output: Intake & Output 09/03/24 09/04/24 09/05/24 09/06/24 23:59 23:59 23:59 23:59 Intake Total 100 2455 480 Output Total 600 Balance 100 2455 -120 Meds/Results Medications: Active Medications Generic Name Dose Route Start Last Admin Trade Name Freq PRN Reason Stop Dose Admin Albuterol 2 puff 09/04/24 13:51 Albuterol Sulfate (*Sp) Aerosol 1 Puff INHALATION Q4HRT PRN shortness of breath Apixaban 5 mg 09/04/24 17:00 09/06/24 08:29 Apixaban 5 Mg Tablet PO 5 mg BID KEITH Administration Citalopram Hydrobromide 10 mg 09/04/24 21:00 09/05/24 21:27 Citalopram Hydrobromide 10 Mg Tablet PO 10 mg HS KEITH Administration Dextrose 12.5 gm 09/04/24 14:08 Dextrose 50% 25 Gm/50 Ml Syringe IV PUSH PRN PRN Hypoglycemia Protocol Divalproex Sodium 125 mg 09/04/24 14:00 09/06/24 06:[address] 125 Mg Tabec PO 125 mg Q8HR KEITH Administration Finasteride 5 mg 09/04/24 21:00 09/05/24 21:27 Finasteride 5 Mg Tablet PO 5 mg HS KEITH Administration Glucagon 1 mg 09/04/24 14:08 Glucagon For Inj 1 Mg Vial IM PRN PRN Hypoglycemia Protocol Glucose 15 gm 09/04/24 14:08 Glucose Oral Gel 15 Gm Of Glucse In 37.5 Gm Tube PO PRN PRN Hypoglycemia Protocol Dextrose 1,000 mls @ 100 mls/hr 09/04/24 14:08 Dextrose 5% 1,000 Ml IVPB PRN PRN Hypoglycemia Protocol Meropenem 1 gm in 100 mls @ 200 mls/hr 09/06/24 15:00 IVPB 09/10/24 22:29 Q8HR KEITH Insulin Aspart 2 - 5 units 09/04/24 17:00 09/06/24 12:14 Insulin Aspart (*Bkc) 100 Units/Ml SUB-Q 3 units TIDWM KEITH Administration Protocol Insulin Aspart 1 - 2 units 09/04/24 21:00 09/05/24 21:28 Insulin Aspart (*Bkc) 100 Units/Ml SUB-Q 1 units HS KEITH Administration Protocol Levetiracetam 500 mg 09/06/24 09:00 09/06/24 10:12 Levetiracetam 500 Mg Tablet PO 09/12/24 21:01 Not Given Q12HR KEITH Metoprolol Succinate 25 mg 09/05/24 09:00 09/06/24 08:30 Metoprolol Succinate Ext Rel 25 Mg Tabcr PO 25 mg DAILY KEITH Administration Pantoprazole Sodium 40 mg 09/05/24 09:00 09/06/24 08:29 Pantoprazole 40 Mg Tablet PO 40 mg QAM KEITH Administration Sacubitril/Valsartan 1 tab 09/04/24 21:00 09/06/24 08:30 Sacubitril/Valsartan 24-26 Mg Tablet PO 1 tab Q12HR KEITH Administration Spironolactone 25 mg 09/05/24 09:00 09/06/24 08:29 Spironolactone 25 Mg Tablet PO 25 mg DAILY KEITH Administration Torsemide 10 mg 09/05/24 09:00 09/06/24 08:29 Torsemide 10 Mg Tablet PO 10 mg DAILY KEITH Administration Radiology Results: ITS Impressions Head CT 09/04/24 09:31 IMPRESSION: 1. 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 No acute intracranial process. 2. Age-related changes including moderate severe central predominant diffuse volume loss and moderate scattered white matter hypoattenuation consistent with chronic small vessel ischemic disease. Chest X-Ray 09/04/24 11:02 IMPRESSION: 1. Small right pleural effusion versus pleural parenchymal scarring at the right costophrenic angle with additional linear discoid atelectasis/scarring in the right mid and upper lung zones. Labs Labs: Laboratory Results - last 24 hr 09/05/24 09/05/24 09/06/24 16:26 21:00 06:11 WBC 7.7 RBC 3.86 L Hgb 11.8 L Hct 37.3 L MCV 96.6 MCH 30.6 MCHC 31.6 L RDW 13.1 Plt Count 176 MPV 10.8 H Immature Gran % (Auto) 0.3 Neut % (Auto) 60.6 Lymph % (Auto) 24.1 [place] % (Auto) 10.2 H Eos % (Auto) 4.0 Baso % (Auto) 0.8 Lymph # (Auto) 1.85 [place] # (Auto) 0.8 H Eos # (Auto) 0.3 Baso # (Auto) 0.1 Abs Immat Gran (auto) 0.02 Absolute Neuts (auto) 4.7 Absolute Nucleated RBC 0.000 Nucleated RBC % 0.0 Sodium 137 Potassium 4.0 Chloride 103 Carbon Dioxide 27 Anion Gap 7 BUN 23 H Creatinine 0.99 Estim Creat Clear Calc 57 Estimated GFR > 60 Glucose 172 H POC Capillary Glucose 180 H 220 H Calcium 8.9 09/06/24 09/06/24 07:57 11:53 WBC RBC Hgb Hct MCV MCH MCHC RDW Plt Count MPV Immature Gran % (Auto) Neut % (Auto) Lymph % (Auto) [place] % (Auto) Eos % (Auto) Baso % (Auto) Lymph # (Auto) [place] # (Auto) Eos # (Auto) Baso # (Auto) Abs Immat Gran (auto) Absolute Neuts (auto) Absolute Nucleated RBC Nucleated RBC % Sodium Potassium Chloride Carbon Dioxide Anion Gap BUN Creatinine Estim Creat Clear Calc Estimated GFR Glucose POC Capillary Glucose 167 H 262 H Calcium
[2024-09-06 14:00] VITALS: BP 99/55; PULSE 72; RESP 18; TEMP 36.2; O2SAT 99
[2024-09-06] MEDS: FINASTERIDE 5 MG TABLET PO (21:59)
[2024-09-06] MEDS: CITALOPRAM HYDROBROMIDE 10 MG TABLET PO (21:59)
[2024-09-06 22:00] VITALS: BP 101/59; PULSE 76; RESP 18; TEMP 36.4; O2SAT 98
[2024-09-07] MEDS: MEROPENEM 1 GM/NS 100 ML 1 GM/100 ML BAG IVPB ×2 (05:20→13:53)
[2024-09-07] MEDS: DIVALPROEX SODIUM DR 125 MG TABEC PO ×2 (05:20→13:53)
[2024-09-07 06:17] LABS: Hematocrit 37.0 % (42.0-52.0); Hemoglobin 12.0 g/dL (14.0-18.0); Immature Granulocyte Percent A 0.2 % (0-0.5); Lymphocytes Absolute Auto 2.00 K/mm3 (0.9-3.2); Mean Corpuscular HGB Conc 32.4 g/dl (32-36); Mean Corpuscular Hemoglobin 31.1 pg (26-34); Mean Corpuscular Volume 95.9 fl (80-100); Nucleated Red Blood Cells Absolute Auto 0.000 K/mm3 (0.0-0.012); Nucleated Red Blood Cells Perc 0.0 % (0.0-0.2); Platelet Count Result 192 k/mm3 (150-375); Red Blood Count 3.86 M/mm3 (4.6-6.20); White Blood Count 9.9 K/mm3 (4.5-10.0)
[2024-09-07 06:30] LABS: Anion Gap 8 mmol/L (4-12); Blood Urea Nitrogen 24 mg/dL (9-20); Calcium 8.9 mg/dL (8.4-10.2); Carbon Dioxide 29 mmol/L (22-30); Chloride 100 mmol/L (98-107); Estimated CRCL calculation 56 ml/min; Estimated Glomerular Filt Rate > 60; Glucose 176 mg/dL (65-110); Potassium 4.0 mmol/L (3.4-5.0); Sodium 137 mmol/L (137-145)
--- NOTE | 2024-09-07 08:19 | P.PNIM_ITS ---
Progress Note: A&P Assessment and Plan (1) Acute UTI: Code(s): N39.0 - Urinary tract infection, site not specified Status: Acute Assessment and Plan: Patient presented with altered mental status and grossly abnormal UA as well as foul-smelling urine -Drug resistant UTI, on day 3 of meropenem which is sensitive. -remains afebrile, lactic acid nml on admission. No blood cultures needed. Suspect he will need 3-5 days of abx tx -This may indicate asymptomatic bacteriuria versus colonization, however given he is unable to provide reliable history and per nursing staff was not at baseline -He is on methenamine hippurate in for recurrent UTIs. This is non formulary. Continue upon discharge -He is on Depakote for behavior problems, not seizures. Will not need to cover with Keppra due to seizure lowering threshold of taking Depakote with meropenem. 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 alf resident. -Mental status is stable at this time with no acute disturbance (4) Type 2 diabetes mellitus: Code(s): E11.9 - Type 2 diabetes mellitus without complications Status: Acute Assessment and Plan: -Last glucose 170 -A1c is 7.6. - Continue sliding scale insulin, hypoglycemic protocol, diabetic diet. Monitor glucose trends (5) Chronic systolic heart failure: Code(s): I50.22 - Chronic systolic (congestive) heart failure Status: Acute Assessment and Plan: -Not in acute exacerbation. Continue home medications including metoprolol, Entresto, spironolactone (6) BPH (benign prostatic hyperplasia): Code(s): N40.0 - Benign prostatic hyperplasia without lower urinary tract symptoms Status: Suspected Assessment and Plan: -Suspected BPH given patient is on finasteride Time Spent With Patient Time with patient: 25 - 35 minutes Subjective Date/time seen: 09/07/24 08:19 Interval history: Pt is a Review of Systems Review of Systems: All systems reviewed & are unremarkable except as noted in HPI and below Exam Narrative: General: Well developed well nourished patient in NAD HEENT: normocephalic Neck: supple Neuro: Alert and oriented x CV:RRR Resp:CTA Abd: Soft, non distended. No pain to palpation. Positive bowel sounds Extremities: No swelling, erythema, or pain to palpation. Objective Data Vital Signs Vital Signs: Vital Signs - 24 hr 09/06/24 08:30 09/06/24 14:00 09/06/24 21:59 Temperature 97.2 F L Pulse Rate 70 72 Respiratory Rate 18 Blood Pressure 99/55 L Pulse Oximetry 99 Oxygen Delivery Room Air 09/06/24 22:00 Temperature 97.6 F Pulse Rate 76 Respiratory Rate 18 Blood Pressure 101/59 L Pulse Oximetry 98 Oxygen Delivery Intake/Output Intake/Output: Intake & Output 09/04/24 09/05/24 09/06/24 09/07/24 23:59 23:59 23:59 23:59 Intake Total 100 2455 920 500 Output Total 1600 400 Balance 100 2455 -680 100 Meds/Results Medications: Active Medications Generic Name Dose Route Start Last Admin Trade Name Freq PRN Reason Stop Dose Admin Albuterol 2 puff 09/04/24 13:51 Albuterol Sulfate (*Sp) Aerosol 1 Puff INHALATION Q4HRT PRN shortness of breath Apixaban 5 mg 09/04/24 17:00 09/06/24 17:22 Apixaban 5 Mg Tablet PO 5 mg BID KEITH Administration Citalopram Hydrobromide 10 mg 09/04/24 21:00 09/06/24 21:59 Citalopram Hydrobromide 10 Mg Tablet PO 10 mg HS KEITH Administration Dextrose 12.5 gm 09/04/24 14:08 Dextrose 50% 25 Gm/50 Ml Syringe IV PUSH PRN PRN Hypoglycemia Protocol Divalproex Sodium 125 mg 09/04/24 14:00 09/07/24 05:[address] 125 Mg Tabec PO 125 mg Q8HR KEITH Administration Finasteride 5 mg 09/04/24 21:00 09/06/24 21:59 Finasteride 5 Mg Tablet PO 5 mg HS KEITH Administration Glucagon 1 mg 09/04/24 14:08 Glucagon For Inj 1 Mg Vial IM PRN PRN Hypoglycemia Protocol Glucose 15 gm 09/04/24 14:08 Glucose Oral Gel 15 Gm Of Glucse In 37.5 Gm Tube PO PRN PRN Hypoglycemia Protocol Dextrose 1,000 mls @ 100 mls/hr 09/04/24 14:08 Dextrose 5% 1,000 Ml IVPB PRN PRN Hypoglycemia Protocol Meropenem 1 gm in 100 mls @ 200 mls/hr 09/06/24 15:00 09/07/24 05:50 IVPB 09/10/24 22:29 Infused Q8HR KEITH Infusion Insulin Aspart 2 - 5 units 09/04/24 17:00 09/06/24 17:17 Insulin Aspart (*Bkc) 100 Units/Ml SUB-Q Not Given TIDWM KEITH Protocol Insulin Aspart 1 - 2 units 09/04/24 21:00 09/06/24 22:00 Insulin Aspart (*Bkc) 100 Units/Ml SUB-Q Not Given HS KEITH Protocol Levetiracetam 500 mg 09/06/24 09:00 09/06/24 21:59 Levetiracetam 500 Mg Tablet PO 09/12/24 21:01 500 mg Q12HR KEITH Administration Metoprolol Succinate 25 mg 09/05/24 09:00 09/06/24 08:30 Metoprolol Succinate Ext Rel 25 Mg Tabcr PO 25 mg DAILY KEITH Administration Pantoprazole Sodium 40 mg 09/05/24 09:00 09/06/24 08:29 Pantoprazole 40 Mg Tablet PO 40 mg QAM KEITH Administration Sacubitril/Valsartan 1 tab 09/04/24 21:00 09/06/24 21:59 Sacubitril/Valsartan 24-26 Mg Tablet PO 1 tab Q12HR KEITH Administration Spironolactone 25 mg 09/05/24 09:00 09/06/24 08:29 Spironolactone 25 Mg Tablet PO 25 mg DAILY KEITH Administration Torsemide 10 mg 09/05/24 09:00 09/06/24 08:29 Torsemide 10 Mg Tablet PO 10 mg DAILY KEITH Administration Radiology Results: ITS Impressions Head CT 09/04/24 09:31 IMPRESSION: 1. 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 No acute intracranial process. 2. Age-related changes including moderate severe central predominant diffuse volume loss and moderate scattered white matter hypoattenuation consistent with chronic small vessel ischemic disease. Chest X-Ray 09/04/24 11:02 IMPRESSION: 1. Small right pleural effusion versus pleural parenchymal scarring at the right costophrenic angle with additional linear discoid atelectasis/scarring in the right mid and upper lung zones. Labs Labs: Laboratory Results - last 24 hr 09/06/24 09/06/24 09/06/24 11:53 16:59 21:19 WBC RBC Hgb Hct MCV MCH MCHC RDW Plt Count MPV Immature Gran % (Auto) Neut % (Auto) Lymph % (Auto) [place] % (Auto) Eos % (Auto) Baso % (Auto) Lymph # (Auto) [place] # (Auto) Eos # (Auto) Baso # (Auto) Abs Immat Gran (auto) Absolute Neuts (auto) Absolute Nucleated RBC Nucleated RBC % Sodium Potassium Chloride Carbon Dioxide Anion Gap BUN Creatinine Estim Creat Clear Calc Estimated GFR Glucose POC Capillary Glucose 262 H 195 H 182 H Calcium 09/07/24 09/07/24 05:57 07:53 WBC 9.9 RBC 3.86 L Hgb 12.0 L Hct 37.0 L MCV 95.9 MCH 31.1 MCHC 32.4 RDW 12.9 Plt Count 192 MPV 10.4 Immature Gran % (Auto) 0.2 Neut % (Auto) 67.5 Lymph % (Auto) 20.3 [place] % (Auto) 8.6 H Eos % (Auto) 2.8 Baso % (Auto) 0.6 Lymph # (Auto) 2.00 [place] # (Auto) 0.9 H Eos # (Auto) 0.3 Baso # (Auto) 0.1 Abs Immat Gran (auto) 0.02 Absolute Neuts (auto) 6.7 Absolute Nucleated RBC 0.000 Nucleated RBC % 0.0 Sodium 137 Potassium 4.0 Chloride 100 Carbon Dioxide 29 Anion Gap 8 BUN 24 H Creatinine 1.00 Estim Creat Clear Calc 56 Estimated GFR > 60 Glucose 176 H POC Capillary Glucose 170 H Calcium 8.9 Quality VTE Prophylaxis VTE prophylaxis: mechanical ordered
[2024-09-07] MEDS: PANTOPRAZOLE 40 MG TABLET PO (08:25)
[2024-09-07] MEDS: METOPROLOL SUCCINATE EXT REL 25 MG TABCR PO (08:25)
[2024-09-07] MEDS: SPIRONOLACTONE 25 MG TABLET PO (08:25)
[2024-09-07] MEDS: APIXABAN 5 MG TABLET PO (08:25)
[2024-09-07] MEDS: TORSEMIDE 10 MG TABLET PO (08:25)
[2024-09-07] MEDS: SACUBITRIL/VALSARTAN 24-26 MG TABLET 1 TAB PO (08:25)
[2024-09-07 09:30] VITALS: BP 109/54; PULSE 70; RESP 17; TEMP 35.8; O2SAT 99
--- NOTE | 2024-09-07 11:29 | PM.DS ---
DS: Admitting Diagnosis Discharge Date 09/07/24 Admitting Diagnosis UTI DS: Discharge Diagnosis Discharge Diagnosis (1) Acute UTI: Code(s): N39.0 - Urinary tract infection, site not specified Status: Acute Assessment and Plan: Patient presented with altered mental status and grossly abnormal UA as well as foul-smelling urine -Drug resistant UTI, on day 3 of meropenem which is sensitive. -remains afebrile, lactic acid nml on admission. No blood cultures needed. Plan for 7 days total of abx. Midline placed and ertapenem prescribed -He is on methenamine hippurate in for recurrent UTIs. This is non formulary. Continue upon discharge -He is on Depakote for behavior problems, not seizures. Will not need to cover with Keppra due to seizure lowering threshold of taking Depakote with meropenem. 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 [facility] resident. -Mental status is stable at this time with no acute disturbance (4) Type 2 diabetes mellitus: Code(s): E11.9 - Type 2 diabetes mellitus without complications Status: Acute Assessment and Plan: -Last glucose 170 -A1c is 7.6. - Continue home regimen (5) Chronic systolic heart failure: Code(s): I50.22 - Chronic systolic (congestive) heart failure Status: Acute Assessment and Plan: -Not in acute exacerbation. Continue home medications including metoprolol, Entresto, spironolactone (6) BPH (benign prostatic hyperplasia): Code(s): N40.0 - Benign prostatic hyperplasia without lower urinary tract symptoms Status: Suspected Assessment and Plan: -continue finasteride Plan pt states he has a hx of afib and is on eliquis for such DS: Summary Hospital Course Hospital Course: Patient is an 84-year-old male who was admitted to [facility] for altered mental status after becoming very combative with staff at his senior living. Urine culture revealed UTI and antibiotics were started. Patient did well and returned to his baseline with treatment. His urine culture grew ESBL and he will be discharged with a midline to complete his antibiotics with ertapenem once daily for 4 more days. He is to continue all his home medications. He was educated about the worrisome signs and symptoms to come back to emergency room for and was discharged stable condition. I called and discussed the plan of care with Marissa. Time Spent with Patient Time attestation: Total time spent providing and/or coordinating discharge services:35 Time spent: Greater than 30 minutes Exam Narrative: General: Overweight pt in NAD HEENT: normocephalic Neck: supple Neuro: Alert and oriented to self, birthday, place, year and president but not month. CV:RRR Resp:CTA bilaterally Abd: Soft, non distended. No pain to palpation. Positive bowel sounds Extremities: No swelling, erythema, or pain to palpation to LE. DS: Data Data Completed and Pending Labs on day of discharge: Labs from last 24 hours 09/07/24 09/07/24 09/06/24 07:53 05:57 21:19 WBC 9.9 RBC 3.86 L Hgb 12.0 L Hct 37.0 L MCV 95.9 MCH 31.1 MCHC 32.4 RDW 12.9 Plt Count 192 MPV 10.4 Immature Gran % (Auto) 0.2 Neut % (Auto) 67.5 Lymph % (Auto) 20.3 [place] % (Auto) 8.6 H Eos % (Auto) 2.8 Baso % (Auto) 0.6 Lymph # (Auto) 2.00 [place] # (Auto) 0.9 H Eos # (Auto) 0.3 Baso # (Auto) 0.1 Abs Immat Gran (auto) 0.02 Absolute Neuts (auto) 6.7 Absolute Nucleated RBC 0.000 Nucleated RBC % 0.0 Sodium 137 Potassium 4.0 Chloride 100 Carbon Dioxide 29 Anion Gap 8 BUN 24 H Creatinine 1.00 Estim Creat Clear Calc 56 Estimated GFR > 60 Glucose 176 H POC Capillary Glucose 170 H 182 H Calcium 8.9 09/06/24 09/06/24 16:59 11:53 WBC RBC Hgb Hct MCV MCH MCHC RDW Plt Count MPV Immature Gran % (Auto) Neut % (Auto) Lymph % (Auto) [place] % (Auto) Eos % (Auto) Baso % (Auto) Lymph # (Auto) [place] # (Auto) Eos # (Auto) Baso # (Auto) Abs Immat Gran (auto) Absolute Neuts (auto) Absolute Nucleated RBC Nucleated RBC % Sodium Potassium Chloride Carbon Dioxide Anion Gap BUN Creatinine Estim Creat Clear Calc Estimated GFR Glucose POC Capillary Glucose 195 H 262 H Calcium Discharge Plan Discharge Attending physician on discharge: Malik Spicer Discharging Clinician: Jennifer Sarmiento Patient Disposition: SNF Activity: no preference Diet: diabetic Discharge Instructions: General Medicine Discharge Instructions: -Follow up with facility provider in 1-2 weeks about this stay -Monitor for diarrhea and let them know if this starts -Signs and symptoms of low blood sugar include: Shakiness, dizziness, nausea, confusion, sweating, stomach aches and dizziness. If the symptoms occur you need to check your blood sugar. If it is less than 70, drink some juice with sugar in it or eat some sugary candy. Recheck in 20 minutes. If your blood sugar keeps being low (less than 70), come to the emergency room Worrisome signs and symptoms to come back to emergency room for:chest pain, shortness of breath, confusion, fevers 100.4 or great, progressive significant weakness or any other worrisome symptoms Patient Language: Ma[place] Stand Alone Forms: General Discharge Information Discharge Medications: New ertapenem 1 gram [place] 1 g IV DAILY 4 Days Continued divalproex [Depakote] 125 mg tablet,delayed release (DR/EC) 125 mg PO Q8H citalopram 10 mg tablet 10 mg PO .bedtime torsemide 10 mg tablet 10 mg PO DAILY spironolactone 25 mg tablet 25 mg PO DAILY methenamine hippurate 1 gram tablet 1 g PO BID metoprolol succinate 25 mg tablet extended release 24 hr 25 mg PO DAILY albuterol sulfate 90 mcg/actuation HFA aerosol inhaler 2 puff INHALATION Q4H PRN (Reason: shortness of breath) finasteride 5 mg tablet 5 mg PO .evening Eliquis 5 mg tablet 5 mg PO BID Entresto 24-26 mg tablet 1 tablet PO BID omeprazole 20 mg capsule,delayed release(DR/EC) 20 mg PO DAILY insulin aspart U-100 [Novolog U-100 Insulin aspart] 100 unit/mL solution 1 sliding scale dose subcut USEASDIRECTD Rx Instructions: If blood sugar less than 60 call . Blood sugar 170-200 give 2 units, blood sugar 201-250 give 4 units, blood sugar 251-300 give 6 units, blood sugar 301-350 give 8 units, blood sugar 351-400 give 10 units if blood sugar is greater than 400 call MD. Date of admission: 09/04/24 11:40 Primary Care Provider: Lanny,Jonah Arthur Admitting Provider: Kirti Amaro Attending physician on admission: Jennifer Sarmiento Condition: Stable
[2024-09-07] MEDS: INSULIN ASPART (*BKC) 100 UNITS/ML SUB-Q (12:35)
[2024-09-07] MEDS: LIDOCAINE 1% LOCAL INJ 2 ML AMPUL 5 ML INFILTRATE (13:30)
[2024-09-07] MEDS: SALINE LOCK FLUSH 10 ML IV PUSH (14:05)
[2024-09-07 14:07] VITALS: BP 100/53; PULSE 70; RESP 16; TEMP 36.2; O2SAT 98
== END 2024-09-07 15:58 | DRG 690 ==
LOC: ANHED 11:43 → ANH3MEDSUR 12:52
PROVIDERS: Nurse Practitioner; Admitting Provider Internal Medicine; Emergency Provider Emergency Medicine; PCP Internal Medicine; Visit Provider Physician Assistant
DX: N39.0 Urinary tract infection, site not specified (principal); F03.92 Unspecified dementia, unspecified severity, with psychotic disturbance; I50.22 Chronic systolic (congestive) heart failure; Z16.12 Extended spectrum beta lactamase (ESBL) resistance; B96.20 Unspecified Escherichia coli [E. coli] as the cause of diseases classified elsewhere; D64.9 Anemia, unspecified; E11.9 Type 2 diabetes mellitus without complications; I48.91 Unspecified atrial fibrillation; N40.0 Benign prostatic hyperplasia without lower urinary tract symptoms; R26.9 Unspecified abnormalities of gait and mobility; Z20.822 Contact with and (suspected) exposure to COVID-19; Z79.01 Long term (current) use of anticoagulants; Z79.4 Long term (current) use of insulin; Z66 Do not resuscitate
CPT/HCPCS: 36410; 36415; 70450; 71045; 80048; 80053; 81001; 82948; 83036; 83605; 85025; 87086; 87186; 87637; 96365; 99285; A9270; C1751; J1815; J2003; J2185; J7030

== ENCOUNTER 2024-09-09 09:25 | Emergency (ER) | payer MEDICARE, SELFPAY ==
[2024-09-09] VITALS (9 sets, daily range): BP systolic 103–115; BP diastolic 52–64; PULSE 70; RESP 12–21; TEMP 36.4; O2SAT 98–100
--- NOTE | ~2024-09-09 | CT_ITS ---
EXAMINATION: CT abdomen pelvis w con DATE: 09/09/2024 11:17 INDICATION: Lower abdominal pain. Constipation. TECHNIQUE: Computed tomography (CT) of the abdomen and pelvis was performed with 100 mL Omnipaque-350 intravenous contrast. Automated exposure control and iterative reconstruction technique were employe d. The dose-length product was 1663.00 mGy-cm. COMPARISON: 11/02/2015 FINDINGS: Very small right pleural effusion with pleural parenchymal scarring at the periphery of the basilar r ight middle and lower lobes. Additional mild atelectasis/scarring along the left lung base. Mild card iomegaly. No pericardial effusion. Aortic valve calcification. Cardiac pacemaker leads at the right a trium, right ventricle and in a coronary vein overlying the anterior wall of the left ventricle havin g traversed the coronary sinus. There are couple hepatic cysts measuring up to 1.8 cm the left hepatic lobe. Cluster of a few small c alcifications in the left hepatic lobe consistent with sequela of chronic granulomatous disease. Blad yumiko, spleen, pancreas and right adrenal gland are normal. Unchanged 1.2 cm left adrenal adenoma. Bila teral renal cysts the largest a 5.6 exophytic cyst arising from the lateral left kidney. There is mil d scattered colonic diverticulosis without adjacent inflammatory change to suggest diverticulitis. Mo derate amount of predominantly distal colonic stool which measures 7.1 x 6.6 cm maximal diameter at t he rectum consistent with given history of constipation. Small bowel and appendix are normal. Tom c atheter in the incompletely distended bladder. Prostatomegaly measuring 5.4 x 4.9 cm. No free intrape ritoneal gas or fluid. No pathologically enlarged abdominal or pelvic lymphadenopathy. . There is lisa cified atherosclerosis of the normal caliber aorta and many of the other arteries. Moderate thoracic and severe lumbar spondylosis with bridging osteophytes at multiple levels consistent with diffuse id iopathic skeletal hyperostosis (DISH). Stable appearance of a chronic T12 compression fracture with 4 0% anterior vertebral body height loss. IMPRESSION: 1. Moderate amount of predominately distal colonic stool consistent with provided history of constipa tion. No other acute intra-abdominal/pelvic process. 2. Very small right pleural effusion with associated peripheral pleural parenchymal scarring the righ t lower lung. 3. Mild cardiomegaly. 4. Prostatomegaly. Reviewed, dictated and finalized at location B. IMPRESSION: 1. Moderate amount of predominately distal colonic stool consistent with provid ed history of constipation. No other acute intra-abdominal/pelvic process. 2. Very small right pleural effusion with associated peripheral pleural parench ymal scarring the right lower lung. 3. Mild cardiomegaly. 4. Prostatomegaly.
--- OUTSIDE RECORDS SUMMARY | 2024-09-09 09:38 | XMS_ITS | Encounter Summary ---
Author Organization [facility] Address [address] [place] [address] Phone Care Team Providers Care Revenue Research Analyst Name Role Phone Jonah Cook MD Primary Care Provider [phone] Margarita Jaimes MD Unavailable [phone] Jeevan Gibson MD PhD Unavailable [phone] Olu Reis MD Unavailable [phone] Brant Rodriguez DPM Unavailable + [phone] Cathi Freeman MD Unavailable Cesar Morris MD Primary Care Provider [phone] Serjio Pierre MD Primary Care Provider [phone] Chris Gentile MD Primary Care Provider + [phone] Unknown, Notinfile Primary Care Provider Unavail able Tiana Hilario NP Primary Care Provider [phone] Encounter Details Date Type Department Care Team (Late st Contact Info) Description 05/24/2013 Orders Only [facility] Provider, MD [place] [address] Social History Tobacco Use Types Packs/Day Years Used Date Smoking Tobacco: Never Alcohol Use Standard Drinks/Week Comments Yes 0 (1 standard drink = 0.6 oz pur e alcohol) Sex and Gender Information Value Date Recorded Sex Assigned at Male 05/11/2018 9:16 AM E LEARNING DESIGNER Legal Sex Male 1:34 AM E LEARNING DESIGNER Gender Identity Not on file Sexual Orientation Straight 05/11/2018 9: 16 AM E LEARNING DESIGNER documented as of this encounter Plan of [...] RSV, droplet 02/28/2023 02/28/2023 03/14/2023 3:05 AM E LEARNING DESIGNER COVID: Suspected 03/19/2023 03/19/2023 03/19/2023 9:02 AM E LEARNING DESIGNER COVID: Suspected 07/08/2023 07/08/2023 07/08/2023 10:20 PM CDT documented as of this encounter Care Teams Revenue Research Analyst Relationship Specialty Start Date End Date Jonah Cook MD [address] [facility] [address] [place] [address] PCP - General 01/31/10 02/18/22 Cesar Morris MD [address] [place] [address] PCP - General Internal Medicine 02/19/22 04/03/23 Serjio Pierre MD [address] [place] [address] PCP - General Internal Medicine 04/04/23 05/18/23 Chirs Gentile MD [address] [facility] [address] [place] [address] PCP - General Geriatric Medicine 09/03/23 10/09/23 Unknown, Notinfile PCP - General 10/19/23 01/11/24 Tiana Hilario, ACCOUNT DEVELOPMENT ASSOCIATE [address] [facility] [address] [place] [address] PCP - General Geriatric Medicine 01/12/24 Margarita Jaimes MD [address] [address] Referring Physician Endocrinology Diabetes & Metabolism 08/30/19 Jeevan Gibson MD PhD [address] [address] Referring Physician Cardiology 02/22/20 Olu Reis MD [address] [address] Referring Physician Cardiology 02/22/20 Brant Rodriguez DPM [address] [address] Referring Physician Podiatry 02/22/20 Cathi Freeman MD [phone] [place] [address] Referring Physician Geriatric Medicine 10/09/20 documented as of this encounter
--- OUTSIDE RECORDS SUMMARY | 2024-09-09 09:38 | XMS_ITS | Data Portability ---
Author Organization [place] - [facility], Main Office Address [id number] [place] [address] Care Team Providers Care Information Director Name Role Phone [facility] OTHER BEV RAMOS Clinical Cardiac Electrophysiolo gist LANDON NAJERA Urologist MILLY SANCHEZ Career Agent BLAYNE HUNTER SI Neurologist Assessment Encounter Date [...] reduce health risks and promote healthy living. 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 Imaging None recorded. Medication Orders insulin glargine (U-100) 100 unit/mL (3 mL) [...] 2023 024 [email or web address] Not available 4 16:17:02 acetaminoph en 325 mg tablet 2023 024 [...] hr 2023 024 [email or web address] Not available 14:27:27 Entresto 24 mg-26 mg tablet [email or web address] Not available 14:27:28 furosemide 40 mg tablet 2023 Not available 15:48:16 potassium chloride ER 20 mEq tablet,exte nded release [email or web address] Not available 14:27:27 spironolact one 25 mg tablet [email or web address] Not available 14:27:27 Patient TargetsNo targets recorded. Patient Instructions Encounter Date Encounter Id Patient Instructions Last Modified By Organization Details Last Modified Time 05/19/2023 [id number] advance care planning: care instructions Not available 05/19/2023 14:27:28 medicare preventive services guide Not available 05/19/2023 14:27:27 Discussed and explained advance directives such as standard forms to the patient. Face to face discussion lasted for a duration of 19 minutes. [email or web address] Not available 05/19/2023 14:25:25 06/13/2023 [id number] EMR, VS and rece nt labs reviewed. Results discussed with collaborative physician and nursing staff, patient and care team involved in decision making and agreeable to plan of care. I spent 58 minutes providing care to the patient today. More than 50% of that time was spent in discussing the expected course of the disease, discussing prognosis, coordinating care and counseling of the patient/family. [email or web address] Not available 06/17/2023 15:13:29 06/20/2023 [id number] I spent 22 minut es counseling and discussing advance directives and/or end of life care planning and decisions with the patient and surrogate today. I reviewed the current relevant diagnoses, treatment options, natural history, and prognosis and clarified the patient's goals of care. The patient has advance directives in place, his Marissa is his power of mergers and acquisitions attorney, and he wishes to be DNR per Marissa. Not available 06/26/2023 18:42:52 07/07/2023 [id number] I spent 98 minut es providing care to the patient today. More [...] Ajay Agrawal Internal Medicine, Encounter Date: 06/20/2023 Hand Alterations Tailor/dietitian Refer ral for Diabetes mellitus Referring Physician: Ajay Agrawal Internal Medicine, Encounter Date: 06/20/2023 Hand Alterations Tailor/dietitian Refer ral for Congestive heart failure Referring [...] of cardiac [place] [address] [place], [address], [place] 06/20/2023 14:36:44 lumbar puncture completed Maximo Ken [facility] 04/16/2023 14:54:56 tonsillectomy completed Maximo Ken [facility] 04/16/2023 14:55:09 [place] [address] [place], [address], [place] 06/26/2023 10:59:35 Imaging Results None recorded. Procedure Notes None recorded. Medical Equipment None Reported. Allergies Allergen ID Allergen Name Allergen Category Reaction Reaction Severity Criticality Documentation Date Start Date Code Code System Note Provider Name and Address Organization Details Recorded Time 09973 cephalexi n medicatio n Not available Not available Not available 03/27/20232230 RxNorm Mckenzie Lo[place] null, [place] - [facility] 11:53:14 Medications Name Sig Start Date Stop Date [...] propionate 50 mcg/actuati on nasal spray,suspe nsion [place] 1 spray every day by intranasa l [...] blood by Pulse oximetry Body temperature Systolic And Diastolic Provider Name and Address Organization Details Last Updated DateTime 4 190.5 cm 29.2 kg/m2 845451. 18 g 76 /min 98 % 98 % 98.6 [degF] 106/74 mm[Hg] JOEL ANGELESSOMMER [address] [place], [address], [facility] 4 13:56:36 Date Recorded Body height Provider Name an d Address Organization Details Last Updated DateTime 05/27/2023 190.5 cm JOEL ANGELESSOMMER [address] [place], [address], [facility] 05/27/2023 21:55:47 Date Recorded Body height Body mass index (BMI) Body weight Heart rate Oxygen saturation Oxygen saturation in Arterial blood by Pulse oximetry Respiratory rate Body temperature Systolic And Diastolic Provider Name and Address Organization Details Last Updated DateTime 4 190.5 cm 29.7 kg/m2 898913. 98 g 68 /min 97 % 97 % 20 /min 97.6 [degF] 108/60 mm[Hg] JOEL ANGELESSOMMER [address] [place], [address], [facility] 4 11:35:54 Date Recorded Body height Provider Name an d Address Organization Details Last Updated DateTime 06/20/2023 190.5 [place] [address] [place], [address], [facility] 06/20/2023 14:18:15 Date Recorded Body mass index (BMI) Body weight Heart rate Oxygen saturation Oxygen saturation in Arterial blood by Pulse oximetry Respiratory rate Body temperature Systolic And Diastolic Provider Name and Address Organization Details Last Updated DateTime 4 29.6 kg/m2 257919. 39 g 90 /min 97 % 97 % 18 /min 97.9 [degF] 110/58 mm[Hg] Alysha Tejinder [facility] 16:42:28 Date Recorded Body height Heart rate Oxygen saturation Oxygen saturation in Arterial blood by Pulse oximetry Respiratory rate Body temperature Body mass index (BMI) Body weight Systolic And Diastolic Provider Name and Address Organization Details Last Updated DateTime 4 190.5 cm 58 /min 95 % 95 % 18 /min 98.1 [degF] 3.4 kg/m2 31765.9 9 g 118/56 mm[Hg] Melida Akers [place] - [facility] 10:12:35 Social History Question Answer Notes LastModified by [email or web address] Details LastModified Time Tobacco Smoking Status Never Smoker Maximo Jesus [place], [place] - [facility] 04/16/2023 14:59:25 Do You Have An Advance Directive? Yes Information not available 06/26/2023 What Is Your Code Status? 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 No [email or web address] Information not available 04/16/2023 Live Alone Or With Others? With Others [facility] Since 08/2022 Information not available 06/20/2023 Do You Have A Caregiver? Yes Information not available 06/20/2023 Do You Have A Medical Power Of Control Clerk Auditing? Yes Information not available 06/26/2023 What Is Your Relationship Status? Marissa Information not available 06/20/2023 Sex: Unknown Functional Status Question Answer Note LastModified by [employer] Details LastModified Time Do you use any illicit or recreational drugs? No Information not available 04/16/2023 What is your level of alcohol consumption? None [email or web address] Information not available 04/16/2023 Mental Status None recorded. Family History Relationship Description Onset Age of this Age Resolved Age Notes LastModified by Organization Details LastModified Time Mother Primary malignant neoplasm of colon Not available 2023 14:55:43 Brother Type 2 diabetes mellitus [email or web address] Not available 2023 14:56:06 Brother Harmful pattern of use of alcohol Not available 2023 14:56:45 Brother Diabetes mellitus Not available 2023 14:58:27 Father Cerebrovascu lar accident [email or web address] Not available 09/2023 14:58:06 Father Heart disease [email or web address] Not available 2023 14:58:18 Sister Malignant neoplastic disease [email or web address] Not available 2023 14:58:55 Medical History Condition Response Psychiatric -- Anxiety Disorder Y Urinary Tract Infection (UTI) Y Stroke (CVA) Y Atrial Fibrillation Y Parkinson's Disease Y Psychiatric -- Depression Y COPD Y Cancer -- Skin Y Back Pain Y Peripheral Vascular Disease (PVD) Y Benign Prostatic Hyperplasia (BPH) Y COVID-19 Y Diabetes Y Obesity Y Pacemaker / ICD Y Congestive Heart Failure (CHF) Y Dysphagia Y Hyperlipidemia Y Dementia Y Vitamin D Deficiency Y Neuropathy Y Pulmonary Embolism Y Sleep Apnea / GINO Y Cancer -- Prostate Y Hypertension Y Past Encounters Encounter ID Performer Location Encounter Start Date Encounter Closed Date Diagnosis/Indication Diagnosis SNOMED-CT Code Diagnosis ICD10 Code Diagnosis Note [id number] MAXIMO KEN NP [facility] ne: [address] [place] [address] 04/14/2023 13:39:42 04/29/2023 12:14:05 Essential hypertension 95781458 I10 Metoprolol tartrate 25 mg immediate release - stopped at last hospital visit 42/5 hold parameter on Metoprolol , hold if SBP <100 .Fall in 2023 - ordered orthostati c VS x 1 check2/5 VS reviewed/s table. Asthenia 78202856 R53.1 weakness and incontinen ce - need for therapy.hina preston using wheelchair and sit/stand assist for transfers, non ambulatory recent hospitaliz ation and further worsening of weakness2/ 5 ordered PT/OT per patient and his 's request Infection caused by extended spectrum beta-lactamase producing Escherichia coli 488811277 Z16.12 recent hospitaliz ation for ESBL UTIthree admissions in March 2023 due to recurrent UTI06/2021 + UTI with hydronephr osis09/11/19 22 + UTI 3 >100,000 E.Coli ESBL confirmed, not sensitive to any PO, required IV antibiotic 03/27/23 >100,000 E.coli ESBL confirmed, not sensitive to any PO, required IV antibiotic s Open wound of right lower leg 7757693121 9367990 S81.801D two dime sized wounds on frost [...] neuropathy due to type 2 diabetes mellitus 1278952498 107 E11.42 complicate d healing and therapyusi ng wheelchair consistent ly, not ambulating using sit to stand for all transfers Atrial fibrillation 4943 6004 I48.91 trend heart rateson Eliquis 5 mg BID, 81 mg ASA daily, Metoprolol XL 25 mg ext release tab daily.sees Cardiologi st at [facility] on 07/18/22 and possibly on 01/23/23, Dr. Gavino Dewey .persisten t Oskar d CBC, Lipid panel in January 2023.check PT/INR Urinary incontinence 165 937377 R32 chronic urinary incontinen ceApril 2021 - admitted for AMS due to UTIretenti on was >1 L with hydronephr osis present, ended up with Tom for 2 months, removed in August 2021, incontinen ce of urine since.on Flomax 2021, Hiprex started with Vit C.sees Urologist Dr. Landon Najera at [facility] , last visit 11/19/22 for UTI, LUTS, and Prostate Cancer.On Tamsulosin (Flomax) 0.4 mg every evening, Vit C 500mg BID with his Methenamin e(Hiprex) 1 gm BID.F/U visit with Urology on 11/21/23 with Radha Rooney DNP at [facility] surgery in [place], [place] . 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 Permanent cardiac pacemaker 7069230001 01823 Z95.0 06/24/23 Cardiac device check at 1:15pm with [facility] in [facility] Dr. Bev Ramos, Cardiologi , at that time as well. Congestive heart failure 27942873 I50.9 Albuterol inhaler 2 puffs Q 4 hours PRN for wheezingon Lasix 40 mg Dailyon 20 meq KCL dailyon Entresto (sacubitnl -valsartan 24-26 mg tab) 1 tab BIDon Spironolac tone 25 mg tablet daily Vitamin D deficiency 347 22858 E55.9 On daily Vit D 5,000 units Chronic ur inary tract infection 702186140 N39.0 follow with Urologist - see aboveCipro 500mg daily BID Constipation 11386151 K5 9.00 on Colace 100mg dailyMiral ax 17 gm VNA11an Milk of Magneium PRN daily2/5 and 2/7 denies constipati on Type 2 surya betes mellitus 54620380 E11.21 on Jardiance 10mg (empaglifl ozin) PO dailyon Lispro SSI starting at glucose 151, call if greater than 351 Benign pro static hyperplasia with outflow obstruction 236635559 N40.1 sees urologist - as noted aboveF/U visit with Dr.Paul Najera's ETL DATA ARCHITECT Radha on 11/21/23tak es Proscar (Finasteri de) 5 mg nightlyOn Tamsulosin (Flomax) 0.4 mg every evening, Vit C 500mg BID with his Methenamin e(Hiprex) 1 gm BID. Allergic rhinitis 248582 04 J30.9 on Albuterol PRNon Flonase 1 spray daily PRN Cough 10380203 R05.9 not sure if cough related to Allergies or CHF2/5 no cough heard today during examon Albuterol Inhaler PRNon Guifenesin 20mg/ml syrup, 10ml TID PRN Osteoarthritis 080515418 M19.90 bilateral kneesmenth ol 4% gel BID PRN to both knees Chronic hyponatremia 503 68324 E87.1 on sodium chloride 1 gm tab BID Insomnia 763030662 G47.0 0 discussed the importance of good [...] before bedtimeon Trazadone 25 mg tab nightly [id number] MAXIMO KEN NP [facility] ne: [address] [address] 04/16/2023 17:05:02 04/29/2023 12:15:43 Essential hypertension 91715383 I10 Metoprolol tartrate 25 mg immediate release - stopped at last hospital visit 42/5 hold parameter on Metoprolol , hold if SBP <100 .Fall in 2023 - ordered orthostati c VS x 1 check2/ & 04/16 VS reviewed/s table. Asthenia 78244673 R53.1 weakness and incontinen ce - need for therapy.hina preston using wheelchair and sit/stand assist for transfers, non ambulatory recent hospitaliz ation and further worsening of weakness04/14 ordered PT/OT per patient and his 's request Infection caused by extended spectrum beta-lactamase producing Escherichia coli 829297180 Z16.12 recent hospitaliz ation for ESBL UTIthree admissions in March 2023 due to recurrent UTI06/2021 + UTI with hydronephr osis09/11/19 22 + UTI 3 >100,000 E.Coli ESBL confirmed, not sensitive to any PO, required IV antibiotic 03/27/23 >100,000 E.coli ESBL confirmed, not sensitive to any PO, required IV antibiotic s2/7 no s/s of UTI today Open wound of right lower leg 5690090608 2300750 S81.801D two dime sized wounds on frost [...] neuropathy due to type 2 diabetes mellitus 4550178821 107 E11.42 complicate d healing and therapyusi ng wheelchair consistent ly, not ambulating using sit to stand for all transfers recent glucose levels reviewed, A1C ordered for 04/22 Atrial fibrillation 4943 6004 I48.91 trend heart rateson Eliquis 5 mg BID, 81 mg ASA daily, Metoprolol XL 25 mg ext release tab daily.sees Cardiologi st at [facility] on 07/18/22 and possibly on 01/23/23, Dr. Gavino Dewey .persisten t Afibchesilas d CBC, Lipid panel in January 2023.check PT/INR2/7 VS reviewed, stable. Urinary incontinence 165 671145 R32 chronic urinary incontinen ceApril 2021 - admitted for AMS due to UTIretenti on was >1 L with hydronephr osis present, ended up with Tom for 2 months, removed in August 2021, incontinen ce of urine since.on Flomax 2021, Hiprex started with Vit C.sees Urologist Dr. Landon Najera at [facility] , last visit 11/19/22 for UTI, LUTS, and Prostate Cancer.On Tamsulosin (Flomax) 0.4 mg every evening, Vit C 500mg BID with his Methenamin e(Hiprex) 1 gm BID.F/U visit with Urology on 11/21/23 with Radha Rooney DNP at [facility] surgery in [place], [place] . 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, was [address] on [address] scan.2012 PSA 0.61/ PSA 0.96 Lower urin yrn tract symptoms due to benign prostatic hypertrophy 5711933552 9101 N40.1 see plan above for urinary retention and UTIs Dementia 23962926 F03.90 on Lexapro 20mg daily04/16 cooperativ e, participat ing in activities , following commands, pleasant Parkinson's disease 4904 9000 G20.A1 on Buspar 5 mg BIDon Depakote sprinkle/D ivalproex 125 mg BIDneed to check Depakote level on labs.04/16 cooperativ e, participat ing in activities , following commands, pleasant Permanent cardiac pacemaker 8608128365 15703 Z95.0 06/24/23 Cardiac device check at 1:15pm with [facility] in [facility] Dr. Bev Ramos, Cardiologi , at that time as well.04/16 VS reviewed, HR stable, regular Congestive heart failure 15684529 I50.9 Albuterol inhaler 2 puffs Q 4 hours PRN for wheezingon Lasix 40 mg Dailyon 20 meq KCL dailyon Entresto (sacubitnl -valsartan 24-26 mg tab) 1 tab BIDon Spironolac tone 25 mg tablet daily04/16 no wheezing, no crackles, no edema to BLEon daily weights Vitamin D deficiency 347 92331 E55.9 On daily Vit D 5,000 unitscheck ing level on labs 04/22 Chronic ur inary tract infection 049995770 N39.0 follow with Urologist - see aboveCipro 500mg daily BID completed now04/14 or 04/15 UA Flex collected and sent. Constipation 71445186 K5 9.00 on Colace 100mg dailyMiral ax 17 gm [id number] Milk of Magneium PRN daily2 and 04/16 denies constipati on Type 2 surya betes mellitus 89151041 E11.21 on Jardiance 10mg (empaglifl ozin) PO dailyon Lispro SSI starting at glucose 151, call if greater than 3512/7 recent glucose levels reviewed, A1C ordered for 04/22 Benign pro static hyperplasia with outflow obstruction 722143827 N40.1 sees urologist - as noted aboveF/U visit with Dr.Paul Najera's ETL DATA ARCHITECT Radha on 11/21/23tak es Proscar (Finasteri de) 5 mg nightlyOn Tamsulosin (Flomax) 0.4 mg every evening, Vit C 500mg BID with his Methenamin e(Hiprex) 1 gm BID. Allergic rhinitis 417957 04 J30.9 on Albuterol PRNon Flonase 1 spray daily PRN Cough 44947708 R05.9 not sure if cough related to Allergies or CHF/ no cough heard today during examon Albuterol Inhaler PRNon Guifenesin 20mg/ml syrup, 10ml TID PRN2/7 no cough today, no complaints or SOB Osteoarthritis 752769638 M19.90 bilateral kneesmenth ol 4% gel BID PRN to both knees Chronic hyponatremia 503 12907 E87.1 on sodium chloride 1 gm tab BID04/22 checking CMP Insomnia 013399805 G47.0 0 discussed the importance of good [...] before bedtimeon Trazadone 25 mg tab nightly [id number] MAXIMO KEN, ARJUN [facility] ne: [address] [place] [address] 04/18/2023 15:41:01 04/29/2023 12:16:41 Essential hypertension 14800204 I10 Metoprolol tartrate 25 mg immediate release - stopped at last hospital visit1/1/2 42/5 hold parameter on Metoprolol , hold if SBP <100 .Fall in 2023 - ordered orthostati c VS x 1 check2/5 & 2/ VS reviewed/s table. Asthenia 40254274 R53.1 weakness and incontinen ce - need for therapy.pa tient using wheelchair and sit/stand assist for transfers, non ambulatory recent hospitaliz ation and further worsening of weakness04/14 ordered PT/OT per patient and his 's request Infection caused by extended spectrum beta-lactamase producing Escherichia coli 878353517 Z16.12 recent hospitaliz ation for ESBL UTIthree admissions in March 2023 due to recurrent UTI06/2021 + UTI with hydronephr osis09/11/19 22 + UTI02/20/ 3 >100,000 E.Coli ESBL confirmed, not sensitive to any PO, required IV antibiotic 03/27/23 >100,000 E.coli ESBL confirmed, not sensitive to any PO, required IV antibiotic s2/ no s/s of UTI today Open wound of right lower leg 9179918924 2999771 S81.801D two dime sized wounds on frost [...] neuropathy due to type 2 diabetes mellitus 8071724349 107 E11.42 complicate d healing and therapyusi ng wheelchair consistent ly, not ambulating using sit to stand for all transfers2 /7 recent glucose levels reviewed, A1C ordered for 04/22 Atrial fibrillation 4943 6004 I48.91 trend heart rateson Eliquis 5 mg BID, 81 mg ASA daily, Metoprolol XL 25 mg ext release tab daily.sees Cardiologi st at [facility] on 07/18/22 and possibly on 01/23/23, Dr. Gavino Dewey .persisten t Afibchecke d CBC, Lipid panel in January 2023.check PT/INR04/16 and 04/18 Heart sounds rate and rhythm regular, VS reviewed, stable. Urinary incontinence 165 415594 R32 chronic urinary incontinen ceApril 2021 - admitted for AMS due to UTIretenti on was >1 L with hydronephr osis present, ended up with Tom for 2 months, removed in August 2021, incontinen ce of urine since.on Flomax 2021, Hiprex started with Vit C.sees Urologist Dr. Landon Najera at [facility] , last visit 11/19/22 for UTI, LUTS, and Prostate Cancer.On Tamsulosin (Flomax) 0.4 mg every evening, Vit C 500mg BID with his Methenamin e(Hiprex) 1 gm BID.F/U visit with Urology on 11/21/23 with Radha Rooney DNP at [facility] surgery in [place], [place] . 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, was [address] scan.2012 PSA 0.61/ PSA 0.96 Lower urin yrn tract symptoms due to benign prostatic hypertrophy 7789521584 9101 N40.1 see plan above for urinary retention and UTIs Dementia 72829330 F03.90 on Lexapro 20mg daily04/16 cooperativ e, participat ing in activities , following commands, pleasant Parkinson's disease 4934 9000 G20.A1 on Buspar 5 mg BID - 04/18trial weanto 2.5mg Buspar BID.on Depakote sprinkle/D ivalproex 125 mg BID - now off Depakotene ed to check Depakote level on labs.04/16 cooperativ e, participat ing in activities , following commands, pleasant Permanent cardiac pacemaker 1051927917 45293 Z95.0 06/24/23 Cardiac device check at 1:15pm with [facility] in [facility] Dr. Bev Ramos, Cardiologi , at that time as well.04/16 VS reviewed, HR stable, regular Congestive heart failure 23337169 I50.9 Albuterol inhaler 2 puffs Q 4 hours PRN for wheezingon Lasix 40 mg Dailyon 20 meq KCL dailyon Entresto (sacubitnl -valsartan 24-26 mg tab) 1 tab BIDon Spironolac tone 25 mg tablet daily04/16 no wheezing, no crackles, no edema to BLEon daily weights Vitamin D deficiency 347 63568 E55.9 On daily Vit D 5,000 unitscheck ing level on labs 04/22 Chronic ur inary tract infection 424403392 N39.0 follow with Urologist - see aboveCipro 500mg daily BID completed now04/14 or 04/15 UA Flex collected and sent. Constipation 47535258 K5 9.00 on Colace 100mg dailyMiral ax 17 gm [id number] Milk of Magneium PRN daily - discontinu ed, not using, polypharma cy04/14 and 04/16 denies constipati on Type 2 surya betes mellitus 91048673 E11.21 on Jardiance 10mg (empaglifl ozin) PO dailyon Lispro SSI starting at glucose 151, call if greater than 3512/7 recent glucose levels reviewed, A1C ordered for 04/22 Benign pro static hyperplasia with outflow obstruction 042690369 N40.1 sees urologist - as noted aboveF/U visit with Dr.Paul Najera's ETL DATA ARCHITECT Radha on 11/21/23tak es Proscar (Finasteri de) 5 mg nightlyOn Tamsulosin (Flomax) 0.4 mg every evening, Vit C 500mg BID with his Hiprex.meek l try to get liquid Vit C as patient has trouble getting down large vit C tabs.Methe namine(Hip pamela) 1 gm BID - per Urology orders. Allergic rhinitis 542455 04 J30.9 on Albuterol PRNon Flonase 1 spray daily PRN - discontinu ed, not using, polypharma cy Cough 55178902 R05.9 not sure if cough related to Allergies or CHF2/5 no cough heard today during examon Albuterol Inhaler PRNon Guifenesin 20mg/ml syrup, 10ml TID PRN - discontinu ed, not using, polypharma cy2 no cough today, no complaints or SOB Osteoarthritis 947836535 M19.90 bilateral kneesmenth ol 4% gel BID PRN to both knees - discontinu ed, not using, polypharma cy Chronic hyponatremia 503 74620 E87.1 on sodium chloride 1 gm tab BID04/22 checking CMP Insomnia 136931457 G47.0 0 discussed the importance of good [...] nightly Gastroesop hageal reflux disease without esophagitis 983752934 K21.9 protonix 40 mg qday - [facility] for stress ulcers due to lots of meds and stress of hospitaliz ation/nichols sitioning. would Discontinu e on 05/09/23 or before if patient continues to improve. [id number] MAXIMO KEN NP [facility] ne: [address] [place] [address] 04/28/2023 11:13:28 05/14/2023 02:15:01 Essential hypertension 05230796 I10 Metoprolol tartrate 25 mg immediate release - stopped at last hospital visit 42/5 hold parameter on Metoprolol , hold if SBP <100 .Fall in 2023 - ordered orthostati c VS x 1 check2/5 & 2/ VS reviewed/s table. Asthenia 32164112 R53.1 weakness and incontinen ce - need for therapy.pa tient using wheelchair and sit/stand assist for transfers, non ambulatory recent hospitaliz ation and further worsening of weakness2/ 5 ordered PT/OT per patient and his 's request Infection caused by extended spectrum beta-lactamase producing Escherichia coli 266585380 Z16.12 recent hospitaliz ation for ESBL UTIthree admissions in March 2023 due to recurrent UTI06/2021 + UTI with hydronephr osis09/11/19 22 + UTI 3 >100,000 E.Coli ESBL confirmed, not sensitive to any PO, required IV antibiotic 03/27/23 >100,000 E.coli ESBL confirmed, not sensitive to any PO, required IV antibiotic s2 no s/s of UTI today Urine culture results showing ESBL E.Coli >100,000 that was only sensitive to 4 IV antibiotic s.04/26 pt sent to ER for IV antibiotic s due to 04/22 cx results. [facility], [facility] him back to [facility] with Doxy, no further workup done.04/27 ETL DATA ARCHITECT called [facility], spoke w/ED Dr. Montgomery who [...] scheduled. Open wound of right lower leg [id number] 3781512 S81.801D two dime sized wounds on frost [...] NS, apply Xeroform and wrap with Kerlix.Andres bushian consulted and following. Specialty Mattress in use.compli cated healing due to DM II with neuropathy .past Arterial Dopplers showed: mild to moderate PAD.On Fall precaution s.On Tylenol 650 mg Q 4 hours PRN for pain2/[address] , RLE ulcer with scab in place, no redness.ne ed to F/U and get biopsy done. Peripheral neuropathy due to type 2 diabetes mellitus 9007531057 107 E11.42 complicate d healing and therapyusi ng wheelchair consistent ly, not ambulating using sit to stand for all transfers recent glucose levels reviewed, A1C ordered for 04/22 Atrial fibrillation 4943 6004 I48.91 trend heart rateson Eliquis 5 mg BID, 81 mg ASA daily, Metoprolol XL 25 mg ext release tab daily.sees Cardiologi st at [facility] on 07/18/22 and possibly on 01/23/23, Dr. Gavino Dewey .persisten t Afbrookechesilas d CBC, Lipid panel in January 2023.check PT/INR04/16 and 04/18 Heart sounds rate and rhythm regular, VS reviewed, stable. Urinary incontinence 165 414793 R32 chronic urinary incontinen ceApril 2021 - admitted for AMS due to UTIretenti on was >1 L with hydronephr osis present, ended up with Tom for 2 months, removed in August 2021, incontinen ce of urine since.on Flomax 2021, Hiprex started with Vit C.sees Urologist Dr. Landon Najera at [facility] , last visit 11/19/22 for UTI, LUTS, and Prostate Cancer.On Tamsulosin (Flomax) 0.4 mg every evening, Vit C 500mg BID with his Methenamin e(Hiprex) 1 gm BID.05/25/ 4 CT abd/pelvis scheduled. F/U visit with Urology on 11/21/23 with Radha Rooney DNP at [facility] surgery in [place], [place] . History of malignant neoplasm of prostate 762261280 Z85.46 history of Harley 6 prostate cancerdian osed 2010treate d with phytoestro gen herbal product (ProstaSol ) that caused hypogonadi smenlarge prostate, was [address] on [address] scan.2012 PSA 0.61/ PSA 0.96 Lower urin yrn tract symptoms due to benign prostatic hypertrophy 6397453625 9101 N40.1 see plan above for urinary retention and UTIs Dementia 99730336 F03.90 on Lexapro 20mg daily04/16 cooperativ e, participat ing in activities , following commands, pleasant Parkinson's disease 4904 9000 G20.A1 on Buspar 5 mg BID - 04/18trial weanto 2.5mg Buspar BID.on Depakote sprinkle/D ivalproex 125 mg BID - now off Depakotene ed to check Depakote level on labs.04/16 cooperativ e, participat ing in activities , following commands, pleasant Permanent cardiac pacemaker [id number] 87814 Z95.0 06/24/23 Cardiac device check at 1:15pm with [facility] in [facility] Dr. Bev Ramos, Cardiologi , at that time as well.04/16 VS reviewed, HR stable, regular Congestive heart failure 49112888 I50.9 Albuterol inhaler 2 puffs Q 4 hours PRN for wheezingon Lasix 40 mg Dailyon 20 meq KCL dailyon Entresto (sacubitnl -valsartan 24-26 mg tab) 1 tab BIDon Spironolac tone 25 mg tablet daily04/16 no wheezing, no crackles, no edema to BLEon daily weights Vitamin D deficiency 347 77446 E55.9 On daily Vit D 5,000 unitscheck ing level on labs 04/22 Chronic ur inary tract infection 904006802 N39.0 follow with Urologist - see aboveCipro 500mg daily BID completed now04/14 or 04/15 UA Flex collected and sent. Constipation 18879023 K5 9.00 on Colace 100mg dailyMiral ax 17 gm UEU63je Milk of Magneium PRN daily - discontinu ed, not using, polypharma cy04/14 and 04/16 denies constipati on Type 2 surya betes mellitus 01251797 E11.21 on Jardiance 10mg (empaglifl ozin) PO dailyon Lispro SSI starting at glucose 151, call if greater than 3512/7 recent glucose levels reviewed, A1C ordered for 04/22 Benign pro static hyperplasia with outflow obstruction 505055167 N40.1 sees urologist - as noted aboveF/U visit with Dr.Paul Najera's ETL DATA ARCHITECT Radha on 11/21/23tak es Proscar (Finasteri de) 5 mg nightlyOn Tamsulosin (Flomax) 0.4 mg every evening, Vit C 500mg BID with his Hiprex.meek reese try to get liquid Vit C as patient has trouble getting down large vit C tabs.Methe namine(Hip pamela) 1 gm BID - per Urology orders.05/08 10/31 CT abd/pelvis scheduled. Allergic rhinitis 647227 04 J30.9 on Albuterol PRNon Flonase 1 spray daily PRN - discontinu ed, not using, polypharma cy Cough 45191347 R05.9 not sure if cough related to Allergies or CHF2/5 no cough heard today during examon Albuterol Inhaler PRNon Guifenesin 20mg/ml syrup, 10ml TID PRN - discontinu ed, not using, polypharma cy04/16 no cough today, no complaints or SOB04/28/23 resolved. Osteoarthritis 613263617 M19.90 bilateral kneesmenth ol 4% gel BID PRN to both knees - discontinu ed, not using, polypharma cy Chronic hyponatremia 503 52322 E87.1 on sodium chloride 1 gm tab BID04/22 checking CMP Insomnia 615009534 G47.0 0 discussed the importance of good [...] nightly Gastroesop hageal reflux disease without esophagitis 401402234 K21.9 protonix 40 mg qday - started [facility] as prophylact ic for stress ulcers due to lots of meds and stress of hospitaliz ation/nichols sitioning. would Discontinu e on 05/09/23 or before if patient continues to improve. [id number] JOEL ANGELES, OMERP-C [facility] [place] ne: [address] [place] [address] 05/19/2023 13:53:59 05/19/2023 14:39:19 Adult health examination 548850171 Z00.01 Routine labs ordered and reviewed, continue supportive care on long-term care unit Congestive heart failure 29258544 I50.9 no lower extremity edema on exam, recent increase in Lasix dose, stable today, continue b.i.d. Lasix 40 mg and Entresto, follow-up with cardiology as scheduled, recheck renal function Type 2 surya betes mellitus 73067227 Z79.4 recent A1c 8.0% not at goal, recent blood sugars reviewed and 140-160, will hold on adding basal dosing for now to avoid hypoglycem ia, continue Jardiance with mealtime sliding scale, repeat A1c in 3 months Major depr essive disorder 213163598 F32.9 mood and affect appropriat e on exam, continue Lexapro, Seroquel daily and buspirone and trazodone HS; consider GDR due to age and frailty History of malignant neoplasm of prostate 685059135 Z85.46 stable, denies symptoms, repeat PSA, follow-up urology Vitamin D deficiency 347 17530 E55.9 continue daily supplement , repeat vitamin-D level with routine labs History of cerebrovascular accident 488898000 Z86.73 functional impairment on exam, continue supportive care, daily aspirin, check lipid panel, maintain glycemic and BP control Essential hypertension 78173745 I10 continue metoprolol for BP goal less than 150 over less than 90 Gastroesop hageal reflux disease without esophagitis 166710986 K21.9 well controlled on PPI, continue Hyponatremia 59881331 E8 7.1 sodium 140 on recent labs, continue to monitor [id number] SOMMER MARTIN [facility] [place] ne: [facility] [address] [facility] [place] [address] 05/27/2023 21:55:06 06/06/2023 09:26:05 Suprapubic pain 580490633 R10.[address] reviewed, noted R hydronephr osisis with non obstructin g stone, no bladder scan available in facility, will have staff check post void residual via straight cath, urology f/u scheduled, does not feel he needs pain medication , will recheck UA and culture, continue finasterid e and flomax History of malignant neoplasm of prostate 017483910 Z85.46 follows with MD najera, stable of recent, continue to monitor output, notify provider of straight cath results post void, continue flomax and finasterid e Benign pro static hyperplasia without outflow obstruction 428352632 N40.0 continue flomax and finasterid e, monitor output and post void residual with urology f/u as scheduled Type 2 surya betes mellitus 44894652 Z79.4 stable on jardiance and mealtime SSI, most recent A1c 8.0% not at goal, recent blood sugars reviewed, no changes in regimen today [id number] SHEBA MARTIN-Bello [facility] [place] ne: The [address] [place] [address] 06/13/2023 12:31:12 06/29/2023 12:28:30 Paroxysmal atrial fibrillation 536357466 I48.0 rate controlled on metoprolol 25mg ER, will resume eliquis today as benefits outweight risk; will need held prior to urology procedure, this has been discussed with and patient, continue to follow with cardiology as scheduled Benign pro static hyperplasia 021078928 N40.1 stable on flomax and finasterid e with frequent UTIs, follows with urology Chronic di astolic heart failure 008751322 I50.32 known NICM with reduced EF, tolerating entresto and jardiance, continue spirinolac tone and lasix, monitor renal function, continue weekly weights and low salt diet, s/p AICD with risk for ventricula r arrhythmia Type 2 surya betes mellitus 18058563 Z79.4 stable on jardiance and mealtime SSI, most recent A1c 8.0% not at goal, recent blood sugars reviewed and stable, repeat HA1c 3mos from previous Calculus o f kidney and ureter 060473304 N20.2 f/u scheduled with MD Najera, recent CT with hydronephr osis, 9mm non obstructin g stone on R, straight cath post void with minimal urinary retention, continue to monitor output pending definitive stone treatment, eliquis will need held for this, continue flomax and finasterid e [id number] Ajay Agrawal MD [facility] [place] ne: [address] [place] [address] 06/20/2023 11:48:55 06/29/2023 12:30:00 Dysphagia 37717999 R13.10 long-stand ing history of dysphagia patient was seen by [facility] Otolaryngo logy in June 2014 and Gastroente [...] in the Fall therapy referral Diabetes mellitus 001979 09 E13.9 fingerstic k blood glucose log reviewed -- blood glucose readings are running on the high side but not extremely high hemoglobin A1c:8.0% on 04-23-2023 patient recently started on low-dose Lantus increase Jardiance to 25 mg once daily discontinu e insulin sliding scale check FSBS TID diabetic diet Dementia w ith behavioral disturbance 2276691697 103 F03.918 Marissa says that the patient has had cognitive impairment for >10 years but has not had a steep decline in his mental status history of possible normal pressure hydrocepha vee? I recommende d that the patient's and schedule neurology follow up for further evaluation Atrial fibrillation 4528 1488 I48.91 it was recently discovered that the patient's apixaban was discontinu ed by his primary prior primary care physician for unclear reasons apixaban recently restarted trend heart rates check CBC follow up with electrophy siology as directed Congestive heart failure 00900194 I50.9 echocardio gram on April 01, 2022 [...] check BMP check BNP Hypertensive disorder 38 693101 I10 trend blood pressures Recurrent urinary tract infection 797559806 N39.0 sees urology for BPH, recurrent urinary tract infections , and prostate cancer follow up with urology as directed Benign pro static hyperplasia with outflow obstruction 605933008 N40.1 sees urology for BPH, recurrent urinary tract infections , and prostate cancer follow up with urology as directed Unable to walk 978127939 R26.2 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 Marissa says that the patient stopped walking a few years ago after he contracted a severe COVID infection early on in the pandemic and has not walked since etiology unclear I recommende d that the patient's and schedule neurology follow up for further evaluation therapy referral Complete atrioventricular block 41852234 I44.2 history of complete heart block status post DIE CASTING MACHINE OPERATOR-D placement Peripheral angiopathy due to diabetes mellitus 023328275 E11.51 details unclear risks of aspirin therapy in addition to apixaban likely greater than benefit in this patient who falls frequently I asked patient's to ask his cardiologi st next week if he can discontinu e aspirin History of cerebrovascular accident 038122063 Z86.73 details unclear follow up with neurology as directed History of malignant neoplasm of prostate 068542484 Z85.46 sees urology for BPH, recurrent urinary tract infections , and prostate cancer follow up with urology as directed History of SARS-CoV-2 29 09266915 34368900 Z86.16 Marissa says that the patient stopped walking a few years ago after he contracted a severe COVID infection early on in the pandemic and has not walked since Chronic ob structive pulmonary disease 63708251 J44.9 details unclear patient never smoked by report Osteoarthritis 092826529 M19.90 Anxiety 61772807 F41.9 Major depr essive disorder 533287133 F32.9 Dry eyes 239000539 H04.1 23 Constipation 94455793 K5 9.00 discontinu e Milk of Magnesia start polyethyle ne glycol 17 g once daily as needed At [facility] risk of polypharmacy 719051294 Z91.89 decrease sodium chloride tablets to 500 mg twice daily, consider discontinu ing if sodium remains stable discontinu e insulin sliding scale decrease cholecalci ferol to 5000 units once a week discontinu e vitamin C discontinu e Milk of Magnesia consider discontinu ing medication s below Insomnia 828257318 G47.0 0 Parkinson's disease 4904 9000 G20.A1 details unclear does not seem to have typical signs and symptoms of Parkinson' s on examinatio n I recommende d that the patient's and schedule neurology follow up for further evaluation Normal pre ssure hydrocephalus 70008847 G91.2 concern for possible normal pressure hydrocepha [...] neurology follow up for further evaluation Neuropathy 257896398 G62 .9 details unclear follow up with neurology as directed Obstructiv e sleep apnea syndrome 50502322 G47.33 History of pulmonary embolus 126595361 Z86.711 details unclear continue apixaban Hyperlipidemia 01979099 E78.5 not currently on treatment check lipid profile with next blood draw [id number] Ajay Agrawal MD [facility] ne: [address] [place] [address] 07/07/2023 09:38:05 07/12/2023 22:47:58 Normal pressure hydrocephalus 33094123 G91.2 concern for possible normal pressure hydrocepha [...] with neurologis t Dr. Blayne Hunter at [facility] I will fax Dr. Hunter my recent Progress Notes to assist with his evaluation Parkinson's disease 0184 9920 G20.A1 details unclear does not seem to have typical signs and symptoms of Parkinson' s on examinatio n patient is currently not on any medication s for Parkinson' s I recommende d that the patient's Marissa schedule neurology follow up for further evaluation Marissa recently made an appointmen t with neurologis t Dr. Blayne Hunter at [facility] I will fax Dr. Hunter my recent Progress Notes to assist with his evaluation Hypotensive episode 6776 3001 I95.9 nursing staff report that his blood pressures have been running soft in the mornings patient has also had poor oral intake recently decrease furosemide 20 mg once daily decrease spironolac tone to 12.5 mg once daily encourage fluids Diabetes mellitus 471652 09 E13.9 insulin sliding scale recently discontinu [...] regimen for 3 months Nausea and vomiting 1692 1999 R11.2 etiology unclear differenti al includes aspiration secondary to dysphagia versus infection versus dehydratio n patient appears non-toxic and has no complaints , abdominal exam re-assurin g check CBC check CMP check CRP check amylase check lipase check CXR check KUB check urinalysis with reflex check SARS-CoV-2 rapid antigen test Congestive heart failure 95589779 I50.9 echocardio gram on April 01, 2022 [...] facility protocol cardiac diet check BNP At [facility] risk of polypharmacy 527486999 Z91.89 discontinu e sodium chloride tablets insulin sliding scale discontinu ed cholecalci ferol decreased to 5000 units once a week vitamin C discontinu ed Milk of Magnesia discontinu ed Candidiasi s of urogenital site 707537603 B37.49 nursing reports that the patient is constantly urinating and his perineal area is always wet extensive excoriated rash in his perineal area noted start nystatin ointment and powder twice daily Hyperkalemia 86442707 E8 7.5 potassium 5.0 likely secondary to a combinatio n of chronic kidney disease and medication effect decrease spironolac tone to 12.5 mg once daily encourage fluids Health Concerns Section Related Observation LastModified by Organization Detai ls LastModified Time None Recorded Concern Status LastModified by Organization Details LastModified Time None Recorded Advance Directives Directive Y: Payers Insurance Date Sequence Insurance Name Policy Number Policy Lopez Covered Member ID Lopez Member ID Guarantor Name 07/12/2023 COMPMED Maida Zipfel [id number] Maida Zipfel 07/13/2023 2 [place] [id number] Maida Delacruz Zipfel [id number] Maida Zipfel 07/12/2023 [place] Maida Delacruz Zipfel [id number] Maida Zipfel 07/16/2023 1 [place] Maida Delacruz Zipfel [id number] Maida Zipfel 07/12/2023 1 [place] Maida Delacruz Zipfel [id number] Maida Zipfel Notes Date Note Type [...] exam.check CBCcheck CMPcheck fasting lipid profilecheck hemoglobin Y4Colgeo TSHcheck vitamin Dcheck vitamin W02kdszl folate JOEL ANGELESSOMMER [address] [facility], [place], [address], [employer] [facility] 05/19/2023 14:27:36 05/27/2023 text/html pt [...] does get up at night to void. JOEL ANGELESSOMMER [address] [facility], [place], [address], [employer] [facility] 06/02/2023 21:23:45 06/13/2023 text/html Pt seen for [...] fevers or other concerns per nursing staff. 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 The patient has a long-standing history of dementia. He was followed by [facility] neuromuscular clinic for gait instability, cognitive impairment, [...] saw neurosurgery again. He was seen by [facility] Otolaryngology in June 2014 and Gastroenterology in December 2014 for dysphagia and an abnormal barium esophagram showing esophageal dysmotility with delayed esophageal emptying. An EGD was recommended but it is unclear if he ever went through with the procedure. The patient was seen at the [facility] Medicine by Dr. Cathi Freeman as recently as November 2020 for vascular dementia with behavioral disturbance, Parkinson's disease, and dysphagia. The patient has had multiple recent hospitalizations at [facility]. He was hospitalized from February 23-2022 for an ESBL E. coli UTI on a urine culture at [facility] and treated with intravenous meropenem even though [...] coli UTI on a urine culture at [facility] treated with intravenous meropenem and fosfomycin even though he was reportedly asymptomatic. He was again sent to the emergency department on April 26 for an ESBL E. coli UTI on a urine culture at [facility] and discharged on doxycycline. Of note, an echocardiogram on April 01, 2022 was remarkable for moderately reduced left ventricular systolic function with an ejection fraction of 30-35%, moderate to severe global hypokinesis, borderline reduced right ventricular systolic function, aortic stenosis, and mobn-td-[id number] mitral and tricuspid regurgitation. The patient is pleasantly confused and has no complaints today. I spoke at length with the patient's and power of mergers and acquisitions attorney Marissa, who says that the patient has [...] 33, and [place] 1[place] [address], [place], [address], [employer] [facility] 06/26/2023 18:49:06 07/07/2023 text/html I [...] appointment with neurologist Dr. Blayne Hunter at [facility]. Marissa had many questions about the patient's [...] 500 mg twice daily on [place] [address], [place], [address], [employer] [facility] 07/08/2023 15:45:43
--- OUTSIDE RECORDS SUMMARY | 2024-09-09 09:38 | XMS_ITS | Clinical Summary ---
Author Organization [facility] [place] Lenz Ext[place] nsion Address [address] [place] [address] Care Team Providers Care It Associate Name Role Phone Margarita Jaimes MD Unavailable [phone] Jeevan Gibson MD PhD Unavailable [phone] Olu Reis MD Unavailable [phone] Brant Rodriguez DPM Unavailable [phone] Cathi Freeman MD Unavailable Tiana Hilario NP Primary Care Provider [phone] Allergies Active Allergy Reactions Criticality Noted Date [...] (50 mg total) by mouth nightly PER [facility] MEDICATION L[facility] Active docusate sodium (COLACE) 100 [...] extended release tabletIndications:Ca rdiac resynchronization therapy pacemaker ([employer] HEAD FORMER-P) in place,PVC's (premature ventricular contractions),Perman ent atrial fibrillation (HCC) Take 1 tablet (25 mg total) by mouth daily 90 tablet 3 01/20/20 24 025 Active Active Problems Problem Noted Date Diagnosed Date Palliative care by specialist 07/10/2023 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 PVC's (premature ventricular contractions) 12/17 Cardiac resynchronization th erapy pacemaker (GOLF [employer] HEAD FORMER-P) in place 09/17/2022 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 continuous churn current use of anticoagulant therapy 0 09/17/2022 Permanent atrial fibrillation 09/17/2022 S/P ICD (internal cardiac defibrillator) procedu re 06/06/2022 Sinus node dysfunction 06/06/2022 Pneumonia, unspecified organism 05/08/2022 Persistent atrial [...] Personal history of COVID-19 12/27/2021 Moderate malnutrition 09/17/2021 Unsteadiness on feet 07/06/2021 Chronic obstructive pulmonary disease, unspecifi ed 06/24/2021 Acute embolism and thrombosi s of unspecified deep veins of lower extremity, bilateral 06/18/2021 Cerebral infarction, unspecified 06/18/2021 Esophageal obstruction 06/18/2021 Neuromuscular dysfunction of bladder, unspecifie d 06/18/2021 Unspecified malignant neoplasm of skin, unspecif ied 06/18/2021 Acute kidney failure with tubular necrosis 06/18 Typical atrial flutter 06/18/2021 Benign prostatic hyperplasia with lower urinary [...] [place] next week. Dr. Dickens does recommend long term care administrator [place] but patient is resistant at this [...] . Assessment & Plan (04/29/2022 12:59 PM ARCH CUSHION PRESS OPERATOR): -Has had 1 confirmed, possibly 2-3 other [...] apixaban Assessment & Plan (05/17/2021 10:47 AM ARCH CUSHION PRESS OPERATOR): Assessment/plan: Continue ASA and statin therapy. Bilateral [...] lispro. Assessment & Plan (05/17/2021 10:46 AM ARCH CUSHION PRESS OPERATOR): Assessment/plan: Insulin strict glucose control Assessment & Plan (07/04/2020 7:05 AM CDT): Continue insulin. Polyneuropathy, unspecified 03/24/2018 Hyperlipidemia associated with type 2 diabetes m ellitus 11/26/2017 Assessment & Plan (10/10/2020 8:02 AM [...] 0 11/03/2017 Basal cell carcinoma (BCC) of jewish region 10/2017 Basal cell carcinoma (BCC) of [...] supplement Assessment & Plan (02/23/2020 10:37 AM ARCH CUSHION PRESS OPERATOR): Continue daily supplement Assessment & Plan (09/01/2019 8:28 AM CDT): Continue supplement Assessment & Plan (01/19/2019 1:00 PM ARCH CUSHION PRESS OPERATOR): Continue supplement, recheck labs Assessment & Plan (07/03/2018 9:35 AM CDT): Continue supplement History of fall 06/20/2015 Assessment & Plan (08/15/2023 1:04 PM CDT): Patient did slip from bed 6 & has been complaining of L rib pain since. Will obtain XR to ro. He does report better but asking for XR. Assessment & Plan (05/19/2020 5:35 AM ARCH CUSHION PRESS OPERATOR): Patient has a history of falls and [...] have this information as she meets w [facility] for future planning. Cont rx lexapro [...] regimen. Assessment & Plan (04/27/2019 12:44 PM ARCH CUSHION PRESS OPERATOR): Hypertension is controlled. Continue current regimen. Assessment [...] neoplasm of prostate 08/07/2010 Complete atrioventricular block 07/24/2010 Assessment & Plan (11/26/2017 7:06 AM CDT): S/P pacemaker. Follow with cardiology. Atrial flutter 07/24/2010 SSS (sick sinus syndrome) Chronic combined systolic an d diastolic congestive heart failure Assessment & Plan (10/07/2023 4:18 PM CDT): [...] & [place] 09/11. Urology is not wanting senior care [place] but patient is not. Will discuss [...] Orthostatic hypotension 07/18/202107/09 Severe malnutrition 05/31/2021 08/05/19 24 FLORINDA (acute kidney injury) 05/31/2021 Assessment & Plan (07/31/2023 11:29 AM CDT): Repeat labs pending for am. Monitor. Sepsis associated hypotension 05/31/2021 07/31/2023 Multiple open wounds of ankle 05/17/2021 02/23/2023 Assessment & Plan (05/17/2021 10:51 AM ARCH CUSHION PRESS OPERATOR): Assessment/plan: Pressure ulceration the lateral ankles likely from his bed. Continue local wound care with Betadine paint and offloading. Eventually he will likely need an MRI to rule out osteomyelitis. Cognitive communication deficit 03/09/2021 07/31/2023 Myalgia 04/27/2019 02/23/2023 Dermatitis 04/27/2019 02/23/2023 Assessment & Plan (04/27/2019 1:50 PM ARCH CUSHION PRESS OPERATOR): No evidence of cellulitis. Moisturize with vaseline. Use OTC cortisone OTC. Acute cystitis 01/20/2019 07/31/2023 Low back pain 01/19/2019 09/22/2023 Assessment & Plan (01/19/2019 1:19 PM ARCH CUSHION PRESS OPERATOR): Will check urinalysis with reflex to culture [...] time Assessment & Plan (02/23/2020 10:38 AM ARCH CUSHION PRESS OPERATOR): Glucoses a little high, but he has [...] labs Assessment & Plan (01/19/2019 1:00 PM ARCH CUSHION PRESS OPERATOR): Glucoses within a good margin of safety, but a little high so he would benefit from a little more basal insulin Assessment & Plan (07/03/2018 9:35 AM CDT): Mild hyperglycemia, but maintaining a good margin of safety. I would not change therapy at this time Muscle weakness of lower extremity 03/20/2016 02/23/2023 Vascular dementia 06/20/2015 02/23/2023 Assessment & Plan (05/19/2020 5:38 AM ARCH CUSHION PRESS OPERATOR): Patient may experience some deficits with stress or electrolyte disturbances as was with his left leaning episodes. Will continue to monitor and emphasize safety to family. Assessment & Plan (02/23/2020 10:37 AM ARCH CUSHION PRESS OPERATOR): He is supported by his . Need to minimize risk of hypoglycemia Dysphagia 06/30/2014 09/08/2023 Assessment & Plan (05/19/2020 5:36 AM ARCH CUSHION PRESS OPERATOR): Patient is having chocking episodes and the [...] trazodone. Assessment & Plan (05/19/2020 5:31 AM ARCH CUSHION PRESS OPERATOR): As the patient continues to have functional [...] Continue 24 hour care. PAF (paroxysmal atrial fibrillation) 07/24/2013 09/17/2022 Overview (06/14/2016): ATRIAL FIBRILLATION Assessment & Plan (05/17/2021 10:46 AM ARCH CUSHION PRESS OPERATOR): Assessment/plan: Metoprolol Assessment & Plan (04/27/2019 12:44 PM ARCH CUSHION PRESS OPERATOR): Continue rate control. Continue anticoagualtion. Assessment & Plan (12/04/2018 1:38 PM CDT): Continue metoprolol. S/p pacemaker. Assessment & Plan (11/26/2017 7:05 AM CDT): Continue rate control. Continue anticoagualtion. Diabetic hypoglycemia 03/26/20132022 Pacemaker at end of battery life 10/27/2012 07/31/2023 Skin callus 05/04/2012 09/29/2023 Onychomycosis due to dermatophyte 05/04/2012 02/23/2023 BPH with obstruction/lower u rinary tract symptoms 02/23/2023 Assessment & Plan (04/29/2022 12:57 PM ARCH CUSHION PRESS OPERATOR): -On flomax. -PVR today was 13 mL. [...] Encounters Date Type Department Care Team Description 06/14/2024 7:30 AM CDT Ancillary Procedure [facility] Cardiology [address] [address] Complete atrioventricular block (HCC); Cardiac resynchronization therapy pacemaker (GOLF [employer] HEAD FORMER-P) in place; Permanent atrial fibrillation (HCC) from Last 3 Months Immunizations Immunization Administration Dates Next Due Influenza, Quadrivalent, Hig [...] CARDIAC PACEMAKER PLACEMENT Cardiac pacemaker TONSILLECTOMY Tonsillectomy MS THERAPEUTIC SPINAL PUNCTU RE DRAINAGE CSF Spinal [...] by TW Conv) Hypertension CHF (congestive heart failure) (HCC) GERD (gastroesophageal reflux disease) 2021 Benign prostatic hyperplasia 2006 Diabetes mellitus (HCC) 2004 Type 2 diabetes mellitus (HCC) Peripheral neuropathy From knees to feet on [...] - (Added by TW Conv) Cancer Sister PROFESSOR OF [employer]IMINAL JUSTICE Cancer - (Added by TW Conv) Relation Name Status Comments Brother 1 Edson Brother 2 Brother 3 Jasbir Father Agnellus Mother Alive Other 1 Other 2 Sister PROFESSOR OF [employer]IMINAL JUSTICE Social History Tobacco Use Types Packs/Day Years Used Date Smoking Tobacco: Never Smokeless Tobacco: Never Tobacco Cessation:Counseling Given: Not Answered Alcohol Use Standard Drinks/Week Comments Not Currently 0 (1 standard drink = 0.6 oz pur e alcohol) [facility] Utilities Answer Date Recorded In the past 12 months has th e electric, gas, oil, or water [employer] threatened to shut off services in your [...] often do you attend chur ch or samaritan services? Never 07/09/2023 Do you belong to any clubs o r organizations such as judaism groups, unions, fraternal or athletic groups, or [...] place to sleep or slept in a senior living (including now)? No 07/09/2023 Personal Safety Answer Date Recorded Have you ever been in or are you currently in a harmful physical or emotional relationship or is someone making you feel afraid or unsafe? Denies 01/12/2024 Sex and Gender Information Value Date Recorded Sex Assigned at Male 05/11/2018 9:16 AM ARCH CUSHION PRESS OPERATOR Legal Sex Male 1:34 AM ARCH CUSHION PRESS OPERATOR Gender Identity Not on file Sexual Orientation Straight 05/11/2018 9: 16 AM ARCH CUSHION PRESS OPERATOR Obstetrics History Last Filed Vital Signs Vital Sign Reading Time Taken Comments Blood Pressure 104/60 01/20/2024 12:35 PM ARCH CUSHION PRESS OPERATOR Pulse 64 01/20/2024 12:35 PM ARCH CUSHION PRESS OPERATOR Temperature 36 C (96.8 F) 01/12/2024 1:05 PM ARCH CUSHION PRESS OPERATOR Respiratory Rate 14 01/12/2024 2:10 PM ARCH CUSHION PRESS OPERATOR Oxygen Saturation 99% 01/20/2024 12:35 PM ARCH CUSHION PRESS OPERATOR Inhaled Oxygen Concentration - - Weight 108 kg (238 lb) 02/17/2024 11:07 AM ARCH CUSHION PRESS OPERATOR Height 190.5 cm (6' 3) 02/17/2024 11:07 AM ARCH CUSHION PRESS OPERATOR Body Mass Index 29.75 02/17/2024 11:07 AM ARCH CUSHION PRESS OPERATOR Plan of Treatment Health Maintenance Due Date Last Done Comments Dilated Eye Exam 1938 Hepatitis B Screening 01/26/1956 Zoster Vaccine (1 of 2) 01/26/1988 Well Visit 65+ 2003 Albumin Creatinine Ratio, Urine 02/02/2020 02/01/2019, 01/19/2019, 10/01/2017 Foot Exam 12/28/2020 12/29/2019, 01/08, 12/04/2018, Additional history exists Depression Screening 07/04/2021 07/04/2020, 12/04/2018, 11/26/2017, Additional history exists Hemoglobin A1C 01/09/2024 07/09/2023, 02/07, 04/03/2022, Additional history exists Lipid Panel 06/08/2024 06/09/2023, 11/2022, 01/15/2023, Additional history exists Influenza Vaccine (#1) 2024 , 12/29/2019, 12/04/2018, Additional history exists Fall Risk Assessment 01/11/2025 01/12/2024, 07/04/2020, 12/04/2018, Additional history exists eGFR 01/11/2025 01/12/2024, 10/08, 09/08/2023, Additional history exists DTaP/Tdap/Td Vaccine (2 - Td or Tdap) 03/07/2031 03/07/2021 Pneumococcal vaccine 65+ Completed 07/17/2015, 10/2010 Medical Devices Implanted Type Area Dewer Device Identifier Shelf Expiration Date Model / Serial / Lot Pacemaker Pacemaker Left: Chest Lead Pacing Acuity X4 Irox [id number] Titanium Dexamethasone Acetate 4 Cm Space L95 Cm Od3.9-5.2 Fr Odsec2.6 Fr Left Ventricular Otw Quadripolar Long Straight Taper Tip Accept .081 In Guide Catheter Is4-Ll Implanted:Qty: 1 on 06/06/2022 by Jared Irving MD at [facility] [employer] Anisha [id number] 08/21/2023 [id number] / [id number] / [employer] C.R.M. Valitude X4 Latitude Nxt Hf Perspectiv Easyview 2.6fr 4.45x6.17cm U128 - [id number] - [id number] Implanted:Qty: 1 on 06/06/2022 by Jared Irving MD at [facility] [employer] C.R.M. [id number] 10/04/2023 U128 / [id number] / Medtronic Inc Tyrx Absorbable Antibacterial Envelope-Large 3.3x2.9in [id number] - [id number] Implanted:Qty: 1 on 06/06/2022 by Jared Irving MD at [facility] [employer] Inc [id number] / / Terumo [employer] Anisha Angio-Seal Vip 6fr Closere Device [id number] - [id number] Implanted:Qty: 1 on 01/12/2024 at [facility] [employer] Anisha 05/11/2024 [id number] / / [id number] [employer] Anisha Coil Embo Detach Soft Embold 2eeo1ji Sterile Latex-Free [id number] - [id number] Implanted:Qty: 1 on 01/12/2024 at [facility] [employer] Anisha 07/09/2026 [id number] / / [id number] [facility] [place] Embosphere Prefill Saline Syringe Compressible Nonaggregate S420gh - [id number] Implanted:Qty: 1 on 01/12/2024 at [facility] [employer] 10/23/2026 [id number] / / [id number] Medtronic Inc Coil Embolization Coated Detachable Helical Concerto 9ymz11vl Nylon Fk-6-14-[place] - [id number] Implanted:Qty: 1 on 01/12/2024 at [facility] [employer] Inc 11/07/2025 NV-4-10- HELIX / / [id number] Medtronic Inc Coil Embolization Coated Detachable Helical Concerto 7klu2qf Nylon Tm-1-2-[place] - [id number] Implanted:Qty: 1 on 01/12/2024 at [facility] [employer] Inc 06/16/2026 NV-4-8-H ELIX / / [id number] Explanted Type Area Dewer Device Identifier Shelf Expiration Date Model / Serial / Lot Remitly Medical Inc [id number] 6fr 22cm 145cm Radiopaque Positioner Filiform Flexible Tip - [id number] Implanted:Qty: 1 on 07/11/2023 by Dre Chu MD at [facility] Explanted:Qty: 1 on 07/25/2023 by Dre Chu MD Stent Right: Ureter Cook [employer] Inc [id number] 03/21/2026 [id number] / / [id number] Cook [employer] Inc [id number] 6fr 22cm 145cm Radiopaque Positioner Filiform Flexible Tip - [id number] Implanted:Qty: 1 on 07/25/2023 by Dre Chu MD at [facility] Explanted:08/09 by Landon Dickens MD (Quantity not on file) Right: Ureter [employer] Inc [id number] 03/21/2026 [id number] / / [id number] Description:Removed by patisavannah gudino via string Remitly Medical Inc [id number] 6fr 26cm 145cm Radiopaque Positioner Filiform Flexible Tip - [id number] Implanted:Qty: 1 on 09/03/2023 by Landon Dickens MD at [facility] Explanted:Qty: 1 on 09/08/2023 Right: Kidney [employer] Inc [id number] 04/18/2026 [id number] / / [id number] Description:Removed by patie nt at home via string Procedures Procedure Name Priority Date/Time Associated Diagnosis Comments DEVICE CHECK - REMOTE Routine 06/14/2024 9:52 AM CDT Complete atrioventricular block (HCC) Cardiac resynchronization therapy pacemaker (GOLF [employer] HEAD FORMER-P) in place Permanent atrial fibrillation (HCC) EGFR Routine 01/12/2024 7:33 AM ARCH CUSHION PRESS OPERATOR Atrial flutter, unspecified type (HCC) HEMOGLOBIN A1C Routine 07/09/2023 7:45 AM CDT LIPID PANEL Routine 06/09/2023 1:29 PM CDT Lipid screening ALBUMIN CREATININE RATIO, URINE Routine 02/01/2019 10:44 AM ARCH CUSHION PRESS OPERATOR Low back pain without sciatica, unspecified back pain laterality, unspecified chronicity from Last 3 Months or Most Recently Relevant to Health Maintenance Results * DEVICE CHECK - REMOTE (06/14/2024 9:52 AM CDT) Anatomical Region Laterality Modality Other Narrative 07/23/2024 3:48 PM CDT Table formatting from the original result was not included. Patient ID: Nancy Grover is a 84 y.o. male. This patient has a(n) [employer] cardiac resynchronization therapy pacemaker. They had a routine remote transmission on 06/14/2024. Device implant indications: CHB, AF, NICM Interrogation of the patient's device demonstrates the following: Presenting EGM: BIV paced @ 72 bpm Mode: VVIR 70 bpm Device Settings Right Atrium Right Ventricle Left Ventricle Sensitivity 0.15 mV 2.5 mV Pacing output Off 2.1 V @ 0.4 ms 5.5 V @ 1.5 ms Testing Measurements Right Atrium Right Ventricle Left Ventricle Sensitivity Not measured Not measured Impedance 427 ohms 591 ohms 1002 ohms Pacing threshold Not measured Not measured Not measured Pacing % 94% 95% Battery Status: 2.5 years to JESIKA. Episodes last 90 days: No high ventricular rate episode(s). Comments: Programming appropriate for device measurements. Measured data stable. See attached report. Medications: Anticoagulant(s): apixaban Antiarrhythmic(s): metoprolol succinate Plan: Remote device checks quarterly, as scheduled. In-office device check scheduled on 01/26/2025. Valerie Lazar RN Rolly Pang MD [facility] C[facility] PROCEDU RES Final Result * eGFR (01/12/2024 7:33 AM ARCH CUSHION PRESS OPERATOR) eGFR 62 >=60 mL/min/1. 73 m2 Comment: [...] last reviewed 2021. Blood 01/12/2024 7:33 AM ARCH CUSHION PRESS OPERATOR 01/12/2024 8:07 AM ARCH CUSHION PRESS OPERATOR us Alton Delaney MD LAB BLOOD ORDERABLES Final Result Performing Organization Address City/[facility] Co de Phone Number PRATIBHA LIMONH [facility] Department [place] [address] * (ABNORMAL) Hemoglobin A1c (07/09/2023 7:45 AM CDT) Hgb A1C 10.0(H) 4.0 - 5.6 % Estimated Average Glucose 240 mg/dL PRATIBHA Comment: The ADA recommends reporting an estimated Average Glucose (eAG) with all Hemoglobin A1c results using the equation derived from a study of 507 normal and diabetic adults. Minority populations were underrepresented and children were not included. (Diabetes Care 31:7483-0461, 2008). The eAG is not equivalent to a fasting glucose. Blood 07/09/2023 7:45 AM CDT 07/09/2023 8:15 AM CDT us Aleksey Dawn MD LAB BLOOD ORDERABLES Final Result Performing Organization Address City/[facility] Co de Phone Number PRATIBHA [address] Department [place] [address] * Lipid panel (06/09/2023 1:29 PM CDT) [...] 2017. LDL, calculated 90 <=129 mg/dL PRATIBHA AMRS Comment: Interpretive Data Ages < or = [...] revised on 2017. Chol/HDL ratio 3 PRATIBHA MARS Blood 06/09/2023 1:29 PM CDT 06/09/2023 1:50 PM CDT Narrative PRATIBHA - 06/09/2023 2:27 PM CDT Has the patient been fasting for 8 hours or more?->Yes us Gavino Dewey MD LAB BLOOD ORDERABLES Fi nal Result Performing Organization Address City/[facility]/ZIP Co de Phone Number PRATIBHA [address] Department [place] [address] * Albumin Creatinine Ratio, Urine (02/01/2019 10:44 AM ARCH CUSHION PRESS OPERATOR) Creatinine ur 151.4 Not Estab. mg/dL [facility] - 01 Microalbumin, ur 12.6 Not Estab. ug/mL [facility] - 01 Microalbumin/cre at ratio 8.3 0.0 - 30.0 mg/g creat [facility] - 01 Comment: Normal: 0.0 - 30.0 Albuminuria: 31.0 - 300.0 Clinical albuminuria: >300.0 Urine 02/01/2019 10:4 4 AM ARCH CUSHION PRESS OPERATOR 02/01/2019 Narrative [facility] - 02/05/2019 12:08 PM ARCH CUSHION PRESS OPERATOR Performed at: - [facility] [address] [id number] [employer]idential [employer] Assistant: Percy Aguilar PhD, Phone: [phone] us Margarita Jaimes MD LAB URINE ORDERABLES Final Result Performing Organization Address City/[facility] Co de Phone Number [facility] - 01 from Last 3 Months or Most Recently Relevant to Health Maintenance Additional Health Concerns Infection Onset Date Last Indicated MDR gram neg/ESBL Comment:Contact 09/10/2021 10/19/2023 Insurance MEDICARE BLUE CROSS MEDICARE SUPPLEMENT MEDICARE [facility] MEDICARE [facility] MEDICARE SUPPLEMENT Advance Directives For more information, please contact: [phone] Documents on File Type Date Recorded Patient Tortilla Maker Expl anation ADVANCE DIRECTIVE 10/21/2023 1:10 PM POLST - Phys Order for PT Preferences ADVANCE DIRECTIVE 09/19/2021 4:04 PM POLST - Phys Order for PT Preferences ADVANCE DIRECTIVE 06/01/2021 3:02 PM Power of Rehab Director Occupational Therapist-Medical ADVANCE DIRECTIVE 03/18/2019 3:08 PM Power of Rehab Director Occupational Therapist - Medical * Full Code (Latest Code [...] 10:03 PM 04/04/2023 2:46 AM Care Teams It Associate Relationship Specialty Start Date End Date Tiana Hilario NP [address] [facility] [address] [address] PCP - General Geriatric Medicine 01/12/24 Margarita Jaimes MD Referring Physician Endocrinology Diabetes & Metabolism 08/30/19 Jeevan Gibson MD PhD Referring Physician Cardiology 02/22/20 Olu Reis MD Referring Physician Cardiology 02/22/20 Brant Rodriguez DPM Referring Physician Podiatry 02/22/20 Cathi Freeman MD [phone] [place] [address] Referring Physician Geriatric Medicine 10/09/20
--- OUTSIDE RECORDS SUMMARY | 2024-09-09 09:38 | XMS_ITS | Encounter Summary ---
Author Organization [facility] Address [address] [place] [id number] Care Team Providers Care Copy Operator Name Role Phone Olu Suero MD Primary Care Provider [phone] Reason for Visit * Reason Onset Date Comments Information 08/24/2024 Encounter Details Date Type Department Care Team (Late st Contact Info) Description 08/24/[address] [address] Tsering Hedrick RN Information Social History Tobacco Use Types Packs/Day Years Used Date Smoking Tobacco: Former Smokeless Tobacco: Current Chew Alcohol Use Standard Drinks/Week Comments Never 0 (1 standard drink = 0.6 oz pur e alcohol) Sex and Gender Information Value Date Recorded Sex Assigned at Not on file Legal Sex Male 8:35 PM CDT Gender Identity Not on file Sexual Orientation Not on file documented as of this encounter Functional Status * RETIRED Are you deaf or do you have serious difficulty hearing Answer Date of Assessment Author Status No 03/07/2021 7:00 PM DIRECTOR DATA ARCHITECTURE Activ e * RETIRED Are you blind or do you have serious difficulty seeing, even when wearing glasses? Answer Date of Assessment Author Status No 03/07/2021 7:00 PM DIRECTOR DATA ARCHITECTURE Activ e * Do you have serious difficulty walking or climbing stairs? Answer Date of Assessment Author Status Yes 03/07/2021 7:00 PM Sushma Neves RN Active * Do you have difficulty dressing or bathing? Answer Date of Assessment Author Status No 03/07/2021 7:00 PM Sushma Neves RN Active * Because of a physical, mental, or emotional condition, do you have difficulty doing errands alone such as visiting a doctor's office or shopping? Answer Date of Assessment Author Status No 03/07/2021 7:00 PM Sushma Neves RN Active documented as of this encounter Mental Status * Because of a physical, mental, or emotional condition, do you have serious difficulty concentrating, remembering, or making decisions? Answer Entry Date Author Status No 03/07/2021 7:00 PM Sushma Neves RN Active documented in this encounter Progress Notes * Tsering Hedrick RN - 08/24/2024 6:00 PM CDT Katie, can you please have the patient's Latitude transferred to our practice, schedule transmission, and order a new ID card with Dr. Douglas name, thanks Tsering documented in this encounter Plan of Treatment Upcoming Encounters Date Type Department Care Team (Late st Contact Info) Description 11/30/2024 2:00 PM CDT Office Visit [facility], [address] [address] Alethea Harrington PA [address] [facility] [address] [place] [address] 12/20/2024 11:05 AM CDT Allied Health/Nurse Visit [facility], [address] [address] Olu Suero MD [facility]. [address] [id number] documented as of this encounter Visit Diagnoses Not on filedocumented in this encounter Additional Health Concerns Infection Onset Date Last Indicated Resolved Time ESBL - Extended Spectrum Bet a-lactamase Comment:09/06/21 +ESBL Urine 09/09/2021 09/09/2021 documented as of this encounter Care Teams Copy Operator Relationship Specialty Start Date End Date Olu Suero MD [address] [place] [address] PCP - General CLINICAL CARDIAC ELECTROPHYSIOLOGY 08/24/24 documented as of this encounter
--- OUTSIDE RECORDS SUMMARY | 2024-09-09 09:38 | XMS_ITS | Encounter Summary ---
Author Organization [facility] Address [address] [place] [address] Phone Care Team Providers Care Garment Folder Name Role Phone Jonah Cook MD Primary Care Provider [phone] Margarita Jaimes MD Unavailable +[phone] Jeevan Gibson MD PhD Unavailable +[phone] Olu Reis MD Unavailable +[phone] Brant Rodriguez DPM Unavailable + [phone] Cathi Freeman MD Unavailable Cesar Morris MD Primary Care Provider [phone] Serjio Pierre MD Primary Care Provider +[phone] Chris Gentile MD Primary Care Provider + [phone] Unknown, Notinfile Primary Care Provider Unavail able Tiana Hilario NP Primary Care Provider [phone] Encounter Details Date Type Department Care Team (Late st Contact Info) Description 04/27/2012 Orders Only [facility] ProviderPreston MD [address] [place] [address] Social History Tobacco Use Types Packs/Day Years Used Date Smoking Tobacco: Never Assessed Sex and Gender Information Value Date Recorded Sex Assigned at Male 05/11/2018 9:16 AM SENIOR PHARMACY TECHNICIAN Legal Sex Male 1:34 AM SENIOR PHARMACY TECHNICIAN Gender Identity Not on file Sexual Orientation Straight 05/11/2018 9: 16 AM SENIOR PHARMACY TECHNICIAN documented as of this encounter Plan of [...] RSV, droplet 02/28/2023 02/28/2023 03/14/2023 3:05 AM SENIOR PHARMACY TECHNICIAN COVID: Suspected 03/19/2023 03/19/2023 03/19/2023 9:02 AM SENIOR PHARMACY TECHNICIAN COVID: Suspected 07/08/2023 07/08/2023 07/08/2023 10:20 PM CDT documented as of this encounter Care Teams Garment Folder Relationship Specialty Start Date End Date Jonah Cook MD [address] [address] PCP - General 01/31/10 02/18/22 Cesar Morris MD [address] [place] [address] PCP - General Internal Medicine 02/19/22 04/03/23 Serjio Pierre MD [address] [place] [address] PCP - General Internal Medicine 04/04/23 05/18/23 Chris Gentile MD [facility] [address] PCP - General Geriatric Medicine 09/03/23 10/09/23 Unknown, Notinfile PCP - General 10/19/23 01/11/24 Tiana Hilario, DIRECTOR OF MARKETING [address] [facility] [address] [place] [address] PCP - General Geriatric Medicine 01/12/24 Margarita Jaimes MD [address] [address] Referring Physician Endocrinology Diabetes & Metabolism 08/30/19 Jeevan Gibson MD PhD [address] [address] Referring Physician Cardiology 02/22/20 Olu Reis MD [address] [address] Referring Physician Cardiology 02/22/20 Brant Rodriguez DPM [address] [address] Referring Physician Podiatry 02/22/20 Cathi Freeman MD [address] [facility] [id number] [place] [address] Referring Physician Geriatric Medicine 10/09/20 documented as of this encounter
--- OUTSIDE RECORDS SUMMARY | 2024-09-09 09:38 | XMS_ITS | Encounter Summary ---
Author Organization [facility] Address [address] [place] [address] Phone Care Team Providers Care Waiter Waitress Name Role Phone Jonah Cook MD Primary Care Provider [phone] Margarita Jaimes MD Unavailable +[phone] Jeevan Gibson MD PhD Unavailable +[phone] Olu Reis MD Unavailable +[phone] Brant Rodriguez DPM Unavailable + [phone] Cathi Freeman MD Unavailable Cesar Morris MD Primary Care Provider [phone] Serjio Pierre MD Primary Care Provider +[phone] Chris Gentile MD Primary Care Provider + [phone] Unknown, Notinfile Primary Care Provider Unavail able Tiana Hilario NP Primary Care Provider [phone] Encounter Details Date Type Department Care Team (Late st Contact Info) Description 10/14/2013 Orders Only [facility] Provider, MD Preston [facility] [place] [address] Social History Tobacco Use Types Packs/Day Years Used Date Smoking Tobacco: Never Alcohol Use Standard Drinks/Week Comments Yes 0 (1 standard drink = 0.6 oz pur e alcohol) Sex and Gender Information Value Date Recorded Sex Assigned at Male 05/11/2018 9:16 AM PAINT GRINDER Legal Sex Male 1:34 AM PAINT GRINDER Gender Identity Not on file Sexual Orientation Straight 05/11/2018 9: 16 AM PAINT GRINDER documented as of this encounter Plan of Treatment Not on file documented as of this encounter Procedures Procedure Name Priority Date/Time Associated Diagnosis Comments CARDIOLOGY REPORT 10/14/2013 documented in this encounter Results * CARDIOLOGY REPORT (10/14/2013) Anatomical Region Laterality Modality Other Narrative 10/14/2013 Ordered by an unspecified provider. us Historical Provider [facility] JACBO ARTEAGA Final Result documented in this encounter Visit Diagnoses Not on filedocumented in this encounter Additional Health Concerns Infection Onset Date Last Indicated Resolved Time MDR gram neg/ESBL Comment:Contact 09/10/2021 10/19/2023 RSV, droplet 02/28/2023 02/28/2023 03/14/2023 3:05 AM PAINT GRINDER COVID: Suspected 03/19/2023 03/19/2023 03/19/2023 9:02 AM PAINT GRINDER COVID: Suspected 07/08/2023 07/08/2023 07/08/2023 10:20 PM CDT documented as of this encounter Care Teams Waiter Waitress Relationship Specialty Start Date End Date Jonah Cook MD [address] [facility] [address] [place] [address] PCP - General 01/31/10 02/18/22 Cesar Morris MD [address] [place] [address] PCP - General Internal Medicine 02/19/22 04/03/23 Serjio Pierre MD [address] [place] [address] PCP - General Internal Medicine 04/04/23 05/18/23 Chris Gentile MD [address] [facility] [address] [place] [address] PCP - General Geriatric Medicine 09/03/23 10/09/23 Unknown, Notinfile PCP - General 10/19/23 01/11/24 Tiana Hilario, CAD DETAILER [address] [facility] [address] [place] [address] PCP - General Geriatric Medicine 01/12/24 Margarita Jaimes MD [address] [address] Referring Physician Endocrinology Diabetes & Metabolism 08/30/19 Jeevan Gibson MD PhD [address] [address] Referring Physician Cardiology 02/22/20 Olu Reis MD [address] [address] Referring Physician Cardiology 02/22/20 Brant Rodriguez DPM [address] [address] Referring Physician Podiatry 02/22/20 Cathi Freeman MD [id number] [place] [address] Referring Physician Geriatric Medicine 10/09/20 documented as of this encounter
--- OUTSIDE RECORDS SUMMARY | 2024-09-09 09:38 | XMS_ITS | Encounter Summary ---
Author Organization [facility] Address [address] [place] [address] Phone Care Team Providers Care Locomotive Driver Name Role Phone Jonah Cook MD Primary Care Provider [phone] Margarita Jaimes MD Unavailable [phone] Jeevan Gibson MD PhD Unavailable +[phone] Olu Reis MD Unavailable +[phone] Brant Rodriguez DPM Unavailable + [phone] Cathi Freeman MD Unavailable Cesar Morris MD Primary Care Provider [phone] Serjio Pierre MD Primary Care Provider +[phone] Chris Gentile MD Primary Care Provider + [phone] Unknown, Notinfile Primary Care Provider Unavail able Tiana Hilario NP Primary Care Provider [phone] Encounter Details Date Type Department Care Team (Late st Contact Info) Description 04/18/2014 Orders Only [facility] Provider, MD Preston [facility] [address] Social History Tobacco Use Types Packs/Day Years Used Date Smoking Tobacco: Never Alcohol Use Standard Drinks/Week Comments Yes 0 (1 standard drink = 0.6 oz pur e alcohol) Sex and Gender Information Value Date Recorded Sex Assigned at Male 05/11/2018 9:16 AM LABOR TRAINING MANAGER Legal Sex Male 1:34 AM LABOR TRAINING MANAGER Gender Identity Not on file Sexual Orientation Straight 05/11/2018 9: 16 AM LABOR TRAINING MANAGER documented as of this encounter Plan [...] RSV, droplet 02/28/2023 02/28/2023 03/14/2023 3:05 AM LABOR TRAINING MANAGER COVID: Suspected 03/19/2023 03/19/2023 03/19/2023 9:02 AM LABOR TRAINING MANAGER COVID: Suspected 07/08/2023 07/08/2023 07/08/2023 10:20 PM CDT documented as of this encounter Care Teams Locomotive Driver Relationship Specialty Start Date End Date Jonah Cook MD [address] [facility] [address] [place] [address] PCP - General 01/31/10 02/18/22 Cesar Morris MD [address] [place] [address] PCP - General Internal Medicine 02/19/22 04/03/23 Serjio Pierre MD [address] [place] [address] PCP - General Internal Medicine 04/04/23 05/18/23 Chris Gentile MD [address] [facility] [address] [place] [address] PCP - General Geriatric Medicine 09/03/23 10/09/23 Unknown, Notinfile PCP - General 10/19/23 01/11/24 Tiana Hilario, COIL CLEANER [address] [facility] [address] [place] [address] PCP - General Geriatric Medicine 01/12/24 Margarita Jaimes MD [address] [address] Referring Physician Endocrinology Diabetes & Metabolism 08/30/19 Jeevan Gibson MD PhD [address] [address] Referring Physician Cardiology 02/22/20 Olu Reis MD [address] [address] Referring Physician Cardiology 02/22/20 Brant Rodriguez DPM [address] [address] Referring Physician Podiatry 02/22/20 Cathi Freeman MD [id number] [place] [address] Referring Physician Geriatric Medicine 10/09/20 documented as of this encounter
--- OUTSIDE RECORDS SUMMARY | 2024-09-09 09:38 | XMS_ITS | Encounter Summary ---
Author Organization [facility] Address [address] [place] [address] Phone Care Team Providers Care Barrel Rifler Hook Name Role Phone Jonah Cook MD Primary Care Provider [phone] Margarita Jaimes MD Unavailable [phone] Jeevan Gibson MD PhD Unavailable +[phone] Olu Reis MD Unavailable +[phone] Brant Rodriguez DPM Unavailable + [phone] Cathi Freeman MD Unavailable Cesar Morris MD Primary Care Provider [phone] Serjio Pierre MD Primary Care Provider +[phone] Chris Gentile MD Primary Care Provider + [phone] Unknown, Notinfile Primary Care Provider Unavail able Tiana Hilario NP Primary Care Provider [phone] Encounter Details Date Type Department Care Team (Late st Contact Info) Description 04/16/2013 Orders Only [facility] Provider, MD Preston [facility] [place] [address] Social History Tobacco Use Types Packs/Day Years Used Date Smoking Tobacco: Never Alcohol Use Standard Drinks/Week Comments Yes 0 (1 standard drink = 0.6 oz pur e alcohol) Sex and Gender Information Value Date Recorded Sex Assigned at Male 05/11/2018 9:16 AM ERECTING CRANE OPERATOR Legal Sex Male 1:34 AM ERECTING CRANE OPERATOR Gender Identity Not on file Sexual Orientation Straight 05/11/2018 9: 16 AM ERECTING CRANE OPERATOR documented as of this encounter Plan [...] RSV, droplet 02/28/2023 02/28/2023 03/14/2023 3:05 AM ERECTING CRANE OPERATOR COVID: Suspected 03/19/2023 03/19/2023 03/19/2023 9:02 AM ERECTING CRANE OPERATOR COVID: Suspected 07/08/2023 07/08/2023 07/08/2023 10:20 PM CDT documented as of this encounter Care Teams Barrel Rifler Hook Relationship Specialty Start Date End Date Jonah Cook MD [address] [facility] [address] [place] [address] PCP - General 01/31/10 02/18/22 Cesar Morris MD [address] [place] [address] PCP - General Internal Medicine 02/19/22 04/03/23 Serjio Pierre MD [address] [place] [address] PCP - General Internal Medicine 04/04/23 05/18/23 Chris Gentile MD [address] [facility] [address] [place] [address] PCP - General Geriatric Medicine 09/03/23 10/09/23 Unknown, Notinfile PCP - General 10/19/23 01/11/24 Tiana Hilario, BLOOD BANK LABORATORY PROFESSIONAL [address] [facility] [address] [place] [address] PCP - General Geriatric Medicine 01/12/24 Margarita Jaimes MD [address] [address] Referring Physician Endocrinology Diabetes & Metabolism 08/30/19 Jeevan Gibson MD PhD [address] [address] Referring Physician Cardiology 02/22/20 Olu Reis MD [address] [address] Referring Physician Cardiology 02/22/20 Brant Rodriguez DPM [address] [address] Referring Physician Podiatry 02/22/20 Cathi Freeman MD [id number] [place] [address] Referring Physician Geriatric Medicine 10/09/20 documented as of this encounter
--- OUTSIDE RECORDS SUMMARY | 2024-09-09 09:38 | XMS_ITS | Encounter Summary ---
Author Organization [facility] Address [address] [place] [address] Phone Care Team Providers Care Television Reporter Name Role Phone Jonah Cook MD Primary Care Provider [phone] Margarita Jaimes MD Unavailable [phone] Jeevan Gibson MD PhD Unavailable +[phone] Olu Reis MD Unavailable +[phone] Brant Rodriguez DPM Unavailable + [phone] Cathi Freeman MD Unavailable Cesar Morris MD Primary Care Provider +[phone] Serjio Pierre MD Primary Care Provider +[phone] Chris Gentile MD Primary Care Provider + [phone] Unknown, Notinfile Primary Care Provider Unavail able Tiana Hilario NP Primary Care Provider +[phone] Encounter Details Date Type Department Care Team (Late st Contact Info) Description 10/10/2014 Orders Only [facility] Provider, MD Preston [facility] [place] [address] Social History Tobacco Use Types Packs/Day Years Used Date Smoking Tobacco: Never Alcohol Use Standard Drinks/Week Comments Yes 0 (1 standard drink = 0.6 oz pur e alcohol) Sex and Gender Information Value Date Recorded Sex Assigned at Male 05/11/2018 9:16 AM SUPERVISOR INSTRUMENT REPAIR Legal Sex Male 1:34 AM SUPERVISOR INSTRUMENT REPAIR Gender Identity Not on file Sexual Orientation Straight 05/11/2018 9: 16 AM SUPERVISOR INSTRUMENT REPAIR documented as of this encounter Plan of [...] RSV, droplet 02/28/2023 02/28/2023 03/14/2023 3:05 AM SUPERVISOR INSTRUMENT REPAIR COVID: Suspected 03/19/2023 03/19/2023 03/19/2023 9:02 AM SUPERVISOR INSTRUMENT REPAIR COVID: Suspected 07/08/2023 07/08/2023 07/08/2023 10:20 PM CDT documented as of this encounter Care Teams Television Reporter Relationship Specialty Start Date End Date Jonah Cook MD [address] [facility] [address] [place] [address] PCP - General 01/31/10 02/18/22 Cesar Morris MD [address] [place] [address] PCP - General Internal Medicine 02/19/22 04/03/23 Serjio Pierre MD [address] [place] [address] PCP - General Internal Medicine 04/04/23 05/18/23 Chris Gentile MD [address] [facility] [address] [place] [address] PCP - General Geriatric Medicine 09/03/23 10/09/23 Unknown, Notinfile PCP - General 10/19/23 01/11/24 Tiana Hilario, CARGO AND RAMP SERVICES MANAGER [address] [facility] [address] [place] [address] PCP - General Geriatric Medicine 01/12/24 Margarita Jaimes MD [address] [address] Referring Physician Endocrinology Diabetes & Metabolism 08/30/19 Jeevan Gibson MD PhD [address] [address] Referring Physician Cardiology 02/22/20 Olu Reis MD [address] [address] Referring Physician Cardiology 02/22/20 Brant Rodriguez DPM [address] [address] Referring Physician Podiatry 02/22/20 Cathi Freeman MD [id number] [place] [address] Referring Physician Geriatric Medicine 10/09/20 documented as of this encounter
--- OUTSIDE RECORDS SUMMARY | 2024-09-09 09:38 | XMS_ITS | Encounter Summary ---
Author Organization [facility] Address [address] [place] [address] Phone Care Team Providers Care Natural Developer Name Role Phone Jonah Cook MD Primary Care Provider [phone] Margarita Jaimes MD Unavailable [phone] Jeevan Gibson MD PhD Unavailable +[phone] Olu Reis MD Unavailable +[phone] Brant Rodriguez DPM Unavailable + [phone] Cathi Freeman MD Unavailable Cesar Morris MD Primary Care Provider [phone] Serjio Pierre MD Primary Care Provider +[phone] Chris Gentile MD Primary Care Provider + [phone] Unknown, Notinfile Primary Care Provider Unavail able Tiana Hilario NP Primary Care Provider +[phone] Encounter Details Date Type Department Care Team (Late st Contact Info) Description 10/16/2015 Orders Only [facility] Provider, MD Preston [facility] [address] Social History Tobacco Use Types Packs/Day Years Used Date Smoking Tobacco: Never Alcohol Use Standard Drinks/Week Comments Yes 0 (1 standard drink = 0.6 oz pur e alcohol) Sex and Gender Information Value Date Recorded Sex Assigned at Male 05/11/2018 9:16 AM UPSET OPERATOR Legal Sex Male 1:34 AM UPSET OPERATOR Gender Identity Not on file Sexual Orientation Straight 05/11/2018 9: 16 AM UPSET OPERATOR documented as of this encounter Plan [...] RSV, droplet 02/28/2023 02/28/2023 03/14/2023 3:05 AM UPSET OPERATOR COVID: Suspected 03/19/2023 03/19/2023 03/19/2023 9:02 AM UPSET OPERATOR COVID: Suspected 07/08/2023 07/08/2023 07/08/2023 10:20 PM CDT documented as of this encounter Care Teams Natural Developer Relationship Specialty Start Date End Date Jonah Cook MD [address] [facility] [address] [place] [address] PCP - General 01/31/10 02/18/22 Cesar Morris MD [address] [place] [address] PCP - General Internal Medicine 02/19/22 04/03/23 Serjio Pierre MD [address] [place] [address] PCP - General Internal Medicine 04/04/23 05/18/23 Chris Gentile MD [address] [facility] [address] [place] [address] PCP - General Geriatric Medicine 09/03/23 10/09/23 Unknown, Notinfile PCP - General 10/19/23 01/11/24 Tiana Hilario, AGRICULTURAL PRODUCE COMMISSION AGENT [address] [facility] [address] [place] [address] PCP - General Geriatric Medicine 01/12/24 Margarita Jaimes MD [address] [address] Referring Physician Endocrinology Diabetes & Metabolism 08/30/19 Jeevan Gibson MD PhD [address] [address] Referring Physician Cardiology 02/22/20 Olu Reis MD [address] [address] Referring Physician Cardiology 02/22/20 Brant Rodriguez DPM [address] [address] Referring Physician Podiatry 02/22/20 Cathi Freeman MD [id number] [place] [address] Referring Physician Geriatric Medicine 10/09/20 documented as of this encounter
--- OUTSIDE RECORDS SUMMARY | 2024-09-09 09:38 | XMS_ITS ---
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 Dr. Dickens does recommend halfway helton but patient is resistant at this [...] . Assessment & Plan (04/29/2022 12:59 PM GAME MASTER): -Has had 1 confirmed, possibly 2-3 other [...] apixaban Assessment & Plan (05/17/2021 10:47 AM GAME MASTER): Assessment/plan: Continue ASA and statin therapy. Bilateral [...] lispro. Assessment & Plan (05/17/2021 10:46 AM GAME MASTER): Assessment/plan: Insulin strict glucose control Assessment & [...] 0 11/03/2017 Basal cell carcinoma (BCC) of mandaeism region 10/2017 Basal cell carcinoma (BCC) of [...] supplement Assessment & Plan (02/23/2020 10:37 AM GAME MASTER): Continue daily supplement Assessment & Plan (09/01/2019 8:28 AM CDT): Continue supplement Assessment & Plan (01/19/2019 1:00 PM GAME MASTER): Continue supplement, recheck labs Assessment & Plan (07/03/2018 9:35 AM CDT): Continue supplement History of fall 06/20/2015 Assessment & Plan (08/15/2023 1:04 PM CDT): Patient did slip from bed 08/12 & has been complaining of L rib pain since. Will obtain XR to ro. He does report better but asking for XR. Assessment & Plan (05/19/2020 5:35 AM GAME MASTER): Patient has a history of falls and [...] have this information as she meets [facility] for future planning. Cont rx lexapro [...] regimen. Assessment & Plan (04/27/2019 12:44 PM GAME MASTER): Hypertension is controlled. Continue current regimen. Assessment [...] and depression History of pulmonary embolism Current Treatment and Therapy Plans No current plan information found. Past Treatment and Therapy Plans No past plan information found. Lifetime Dose Tracking * Chemical Lifetime Dose [...] & helton 09/11. Urology is not wanting halfway helton but patient is not. Will discuss [...] 02/23/2023 Assessment & Plan (05/17/2021 10:51 AM GAME MASTER): Assessment/plan: Pressure ulceration the lateral ankles likely from his bed. Continue local wound care with Betadine paint and offloading. Eventually he will likely need an MRI to rule out osteomyelitis. Cognitive communication deficit 03/09/2021 07/31/2023 Myalgia 04/27/2019 02/23/2023 Dermatitis 04/27/2019 02/23/2023 Assessment & Plan (04/27/2019 1:50 PM GAME MASTER): No evidence of cellulitis. Moisturize with vaseline. Use OTC cortisone OTC. Acute cystitis 01/20/2019 07/31/2023 Low back pain 01/19/2019 09/22/2023 Assessment & Plan (01/19/2019 1:19 PM GAME MASTER): Will check urinalysis with reflex to culture [...] time Assessment & Plan (02/23/2020 10:38 AM GAME MASTER): Glucoses a little high, but he has [...] labs Assessment & Plan (01/19/2019 1:00 PM GAME MASTER): Glucoses within a good margin of safety, but a little high so he would benefit from a little more basal insulin Assessment & Plan (07/03/2018 9:35 AM CDT): Mild hyperglycemia, but maintaining a good margin of safety. I would not change therapy at this time Muscle weakness of lower extremity 03/20/2016 02/23/2023 Vascular dementia 06/20/2015 02/23/2023 Assessment & Plan (05/19/2020 5:38 AM GAME MASTER): Patient may experience some deficits with stress or electrolyte disturbances as was with his left leaning episodes. Will continue to monitor and emphasize safety to family. Assessment & Plan (02/23/2020 10:37 AM GAME MASTER): He is supported by his . Need to minimize risk of hypoglycemia Dysphagia 06/30/2014 09/08/2023 Assessment & Plan (05/19/2020 5:36 AM GAME MASTER): Patient is having chocking episodes and the [...] trazodone. Assessment & Plan (05/19/2020 5:31 AM GAME MASTER): As the patient continues to have functional [...] FIBRILLATION Assessment & Plan (05/17/2021 10:46 AM GAME MASTER): Assessment/plan: Metoprolol Assessment & Plan (04/27/2019 12:44 PM GAME MASTER): Continue rate control. Continue anticoagualtion. Assessment & Plan (12/04/2018 1:38 PM CDT): Continue metoprolol. S/p pacemaker. Assessment & Plan (11/26/2017 7:05 AM CDT): Continue rate control. Continue anticoagualtion. 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 -PVR today was 13 mL. [...]
--- OUTSIDE RECORDS SUMMARY | 2024-09-09 09:38 | XMS_ITS | Encounter Summary ---
Author Organization [facility] Address [address] [place] [address] Phone Care Team Providers Care Back Hoe Operator Name Role Phone Jonah Cook MD Primary Care Provider [phone] Margarita Jaimes MD Unavailable [phone] Jeevan Gibson MD PhD Unavailable [phone] Olu Reis MD Unavailable [phone] Brant Rodriguez DPM Unavailable + [phone] Cathi Freeman MD Unavailable Cesar Morris MD Primary Care Provider [phone] Serjio Pierre MD Primary Care Provider [phone] Chris Gentile MD Primary Care Provider + [phone] Unknown, Notinfile Primary Care Provider Unavail able Tiana Hilario NP Primary Care Provider [phone] Encounter Details Date Type Department Care Team (Late st Contact Info) Description 05/23/2015 Orders Only [facility] Provider, MD Preston [address] [place] [address] Social History Tobacco Use Types Packs/Day Years Used Date Smoking Tobacco: Never Alcohol Use Standard Drinks/Week Comments Yes 0 (1 standard drink = 0.6 oz pur e alcohol) Sex and Gender Information Value Date Recorded Sex Assigned at Male 05/11/2018 9:16 AM CARDIAC MONITOR TECHNICIAN Legal Sex Male 1:34 AM CARDIAC MONITOR TECHNICIAN Gender Identity Not on file Sexual Orientation Straight 05/11/2018 9: 16 AM CARDIAC MONITOR TECHNICIAN documented as of this encounter Plan [...] RSV, droplet 02/28/2023 02/28/2023 03/14/2023 3:05 AM CARDIAC MONITOR TECHNICIAN COVID: Suspected 03/19/2023 03/19/2023 03/19/2023 9:02 AM CARDIAC MONITOR TECHNICIAN COVID: Suspected 07/08/2023 07/08/2023 07/08/2023 10:20 PM CDT documented as of this encounter Care Teams Back Hoe Operator Relationship Specialty Start Date End Date Jonah Cook MD [id number] [place] [address] PCP - General 01/31/10 02/18/22 Cesar Morris MD [address] [place] [address] PCP - General Internal Medicine 02/19/22 04/03/23 Serjio Pierre MD [address] [place] [address] PCP - General Internal Medicine 04/04/23 05/18/23 Chris Gentile MD [address] [facility] [address] [address] [place] [address] PCP - General Geriatric Medicine 09/03/23 10/09/23 Unknown, Notinfile PCP - General 10/19/23 01/11/24 Tiana Hilario, [facility] [address] [facility] [address] [place] [address] PCP - General Geriatric Medicine 01/12/24 Margarita Jaimes MD [address] [address] Referring Physician Endocrinology Diabetes & Metabolism 08/30/19 Jeevan Gibson MD PhD [address] [address] Referring Physician Cardiology 02/22/20 Olu Reis MD [address] [address] Referring Physician Cardiology 02/22/20 Brant Rodriguez DPM [address] [address] Referring Physician Podiatry 02/22/20 Cathi Freeman MD [phone] [place] [address] Referring Physician Geriatric Medicine 10/09/20 documented as of this encounter
--- OUTSIDE RECORDS SUMMARY | 2024-09-09 09:38 | XMS_ITS | Clinical Summary ---
Author Organization [facility] Address [address] [place] [address] Care Team Providers Care Fisher Trot Line Name Role Phone Evgeny Rossi MD Primary Care Provider [phone] Allergies Active Allergy Reactions Criticality Noted Date Comments Cephalexin Nausea Only,GI Upset,Unknown Low 08/16/2021 Per pt's facility pt is allergic to Keflex, pt denies allergy. Patient has tolerated ceftriaxone and cefepime in the past. Medications aspirin EC (ASPIRIN EC) 81 MG tablet Take 81 mg by mouth daily. Active atorvastatin 40 MG tablet Take 40 mg by mouth nightly at bedtime. Active vitamin D3, cholecalciferol, 5000 UNITS capsule Take 5,000 Units by mouth daily. Active metoprolol tartrate 25 MG tablet Take 25 mg by mouth 2 (two) times daily. Active insulin aspart 100 UNIT/ML injection (VIAL) Inject 15 Units into the skin 3 (three) times daily before meals. 1 unit per every 25 points over 150 with a max daily dose of 110. 10 mL 021 Active acetaminophen (TYLENOL) 325 MG tablet Take 2 tablets (650 mg total) by mouth 3 (three) times daily. Active albuterol sulfate HFA 108 (90 Base) MCG/ACT inhaler every 4 (four) hours as needed. Active menthol (BIOFREEZE) 4 % topical gel Apply 1 Application topically. Active citalopram (CELEXA) 10 MG tablet daily. 024 Active divalproex EC (DEPAKOTE) 250 MG tablet 2 (two) times daily. 10/28/2 024 Active Docusate Sodium (DSS) 100 MG Cap Take 100 mg by mouth 2 (two) times daily. Active ELIQUIS 5 MG tablet 2 (two) times daily. Active ENTRESTO 24-26 MG tablet 2 (two) times daily. Active finasteride (PROSCAR) 5 MG tablet daily. Active methenamine (HIPREX) 1 g tablet Active metoprolol succinate ER (TOPROL-XL) 25 MG 24 hr tablet Active magnesium hydroxide (MILK OF MAGNESIA CONCENTRATE) 2400 MG/10ML suspension Take 15 mLs by mouth daily. Active omeprazole (PRILOSEC) 20 MG capsule Take 1 capsule (20 mg total) by mouth daily. Active ondansetron (ZOFRAN-ODT) 4 MG disintegrating tablet every 8 (eight) hours as needed. Active spironolactone (ALDACTONE) 25 MG tablet daily. Active torsemide (DEMADEX) 10 MG tablet daily. Active Polyethyl Glycol-Propyl Glycol (SYSTANE) 0.4-0.3 % ophthalmic solution Apply 1 drop to eye. Active Melatonin 10 MG Cap Take by mouth nightly. Active cranberry 450 MG Tab tablet Take 1 tablet (450 mg total) by mouth daily. Active Menthol-Zinc Oxide 0.44-20 % Ointment Apply topically as needed. Active Insulin Glargine, 2 Unit Dial, (TOUJEO MAX SOLOSTAR) 300 UNIT/ML Solution Pen-injector Inject into the skin every evening. Active carbidopa-levodop a 25-100 MG disintegrating tablet Take 1 tablet by mouth 3 (three) times daily. 2024 Discontinued coenzyme Q-10 (CO Q-10) 100 MG capsule Take 200 mg by mouth daily. 2024 Discontinued fluticasone propionate 50 MCG/ACT nasal spray 1 spray by Nasal route daily as needed for Rhinitis. 2024 Discontinued insulin glargine 100 UNIT/ML injection (VIAL) Inject 36 Units into the skin nightly at bedtime. 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 Sinus tachycardia 05/31/2021 Falls 03/07/2021 Diabetes mellitus ([facility]) 07/04/2020 Overview (03/07/2021): Last Assessment & Plan: [...] associated wi th type 2 diabetes mellitus ([facility]) 11/26/2017 Overview (03/07/2021): Last Assessment & Plan: Continue statin, work on glycemic control Parkinsonism ([facility]) 11/26/2017 Overview (03/07/2021): Last Assessment & Plan: Continue sinemet. Follow with Neurology. Adjustment and management of cardiac pacemaker 0 11/03/2017 Basal cell carcinoma (BCC) of skin of ear 2017 Basal cell carcinoma (BCC) of evangelical region 10/2017 History of nonmelanoma skin cancer 02/25/2017 Neoplastic disease 02/25/2017 Seborrheic keratoses 02/25/2017 Laryngopharyngeal reflux 08/26/2016 Obstructive sleep apnea syndrome 08/26/2016 Gastroesophageal reflux disease without esophagi tis 08/26/2016 Uncontrolled type 2 diabetes mellitus with hyperglycemia ([facility]) 05/22/2016 Overview (03/07/2021): Last Assessment & [...] guide on continuing his Sinemet. Vascular dementia 06/20/2015 Overview (03/07/2021): Last Assessment & Plan: [...] speech evaluation and modified barium swallow. Hydrocephalus ([facility]) 05/03/2014 Dementia 02/18/2014 Overview (03/07/2021): Last Assessment & Plan: [...] is controlled. Continue current regimen. 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 Continue anticoagualtion. Complete atrioventricular block ([facility] ) 07/24/2010 Encounters Date Type Department Care Team Description 08/24/2024 2:48 PM CDT - 08/24/2024 11:59 PM CDT Hospital Encounter [facility] [place] [address] Evgeny Rossi MD Discharge Disposition: Home or Self Care (Routine Discharge) 08/24/2024 2:48 PM CDT - 08/24/2024 11:59 PM CDT Hospital Encounter [facility] [place] [address] Evgeny Rossi MD Discharge Disposition: Home or Self Care (Routine Discharge) 08/24/2024 1:45 PM CDT [facility], [address] [address] Evgeny Rossi MD Sick Sinus Syndrome (BS PACER) 08/24/2024 Telephone [facility], [address] [address] Tsering Hedrick RN Information 08/24/2024 Results Follow-Up [facility], [address] [address] Dee Gates RN XR CHEST PA+LAT, TSH, COMPREHENSIVE METABOLIC PANEL, PRO BNP ([facility]) 08/24/2024 Orders Only [facility], [address] [address] Jennifer Eckert CMA 08/24/2024 Travel 07/06/2024 Telephone [facility], [address] [address] Evgeny Rossi MD Appointment Request from Last 3 Months Immunizations Immunization Administration Dates Next Due Tdap (Boostrix) 03/07/2021 Family History Medical History Relation Comments CT Father Relation Status Comments Father Mother Social History Tobacco Use Types Packs/Day Years Used Date Smoking Tobacco: Former Smokeless Tobacco: Current Chew Tobacco Cessation:Ready to Q uit: Not Asked; Counseling Given: Not Answered Alcohol Use Standard Drinks/Week Comments Never 0 (1 standard drink = 0.6 oz pur e alcohol) Sex and Gender Information Value Date Recorded Sex Assigned at Not on file Legal Sex Male 8:35 PM CDT Gender Identity Not on file Sexual Orientation Not on file Last Filed Vital Signs Vital Sign Reading Time Taken Comments Blood Pressure 104/60 08/24/2024 1:29 PM CDT Pulse 69 08/24/2024 1:29 PM CDT Temperature 36.7 C (98.1 F) 03/09/2021 11:10 AM ROLLER CLEANER Respiratory Rate 22 03/09/2021 11:10 AM ROLLER CLEANER Oxygen Saturation 95% 08/24/2024 1:29 PM CDT Inhaled Oxygen Concentration - - Weight 126 kg (277 lb 12.5 oz) 03/08/2021 4:18 A M ROLLER CLEANER Height 190.5 cm (6' 3) 08/24/2024 1:29 PM CDT Body Mass Index 34.72 03/06/2021 11:23 PM ROLLER CLEANER Plan of Treatment Upcoming Encounters Date Type Department Care Team (Late st Contact Info) Description 11/30/2024 2:00 PM CDT [facility] Visit [facility], [address] [address] Alethea Harrington PA [address] [facility] [address] [place] [id number] 12/20/2024 11:05 AM CDT Allied Health/Nurse Visit [facility], [address] [id number] Evgeny Rossi MD [facility]. [address] [id number] Health Maintenance Due Date Last Done Comments Diabetes: Retinopathy Eye Exam 01/26/1958 Zoster Vaccines (1 of 2) 01/26/1988 Annual Medicare Wellness Visit 2003 RSV Immunization or 60+ Years (1 - 1-dose 75+ series) 2013 Lipid Panel 01/15/2022 01/15/2021 Hemoglobin A1C 10/09/2023 07/09/2023, 02/07, 04/03/2022, Additional history exists COVID-19 Vaccine ( season) 2023 12/07/2021, 07/27/2021, 06/25/2021 PHQ-2 ([facility]ician [facility]) 03/10/2024 DTaP, Tdap and Td Vaccines (2 - Td or Tdap) 03/07/2031 03/07/2021 Pneumococcal Vaccine: 50+ Years Completed 11/14/2021, 07/17/2015, 11/15/2010 Meningococcal B Vaccine Aged Out No l onger eligible based on patient's age to complete this topic Meningococcal Vaccine Aged Out No gill lindsey eligible based on patient's age to complete this topic RSV Immunizations Under 20 Months Aged Out No longer eligible based on patient's age to complete this topic Medical Devices Implanted Type Area Informatics Spec Device Identifier Shelf Expiration Date Model / Serial / Lot Rv Lead Znoikvd-Bp-0/ 16/2004 Implanted:Qty : 1 on 06/24/2003 by Jeevan Gibson MD Lead Implant Ventricle [employer] [id number] / [id number] / Ra Lead Vkxorss-Fj-9/ 16/2004 Implanted:Qty : 1 on 06/24/2003 by Jeevan Gibson MD Lead Implant Atrium [employer] [id number] / [id number] / Lv Lead Boanqfb-Ox-2/ 30/2023 Implanted:Qty : 1 on 06/06/2022 by Jared Hernandez MD Lead Implant [employer] [id number] / [id number] / Description:CS lead Pacemaker-Bs- [facility]-06/06 Implanted:Qty : 1 on 06/06/2022 by Jared Hernandez MD Pacemaker [employer] [id number] / [id number] / Description:Not on advisory Procedures Procedure Name Priority Date/Time Associated Diagnosis Comments XR CHEST PA+LAT Routine 08/24/2024 3:21 PM CDT CHF (congestive heart failure) ([facility] HHS/HCC) PRO-BRAIN NATRIURETIC PEPTIDE Routine 08/24/2024 2:58 PM CDT CHF (congestive heart failure) ([facility] HHS/[facility]) COMPREHENSIVE METABOLIC PANEL Routine 08/24/2024 2:58 PM CDT CHF (congestive heart failure) ([facility]HS/[facility]) THYROID STIM HORMONE TSH Routine 025 2:58 PM CDT CHF (congestive heart failure) ([facility]) ELECTROCARDIOGRAM (NON MIDMARK ACQUIRED) Routine 08/24/2024 2:24 PM CDT SSS (sick sinus syndrome) ([facility]) HEMOGLOBIN, GLYCOSYLATED Routine 022 6:20 PM CDT DM hyperosmolarity type II from Last 3 Months or Most Recently Relevant to Health Maintenance Results * XR CHEST PA+LAT (08/24/2024 3:21 PM CDT) Anatomical Region Laterality Modality Chest Radiographic Radha ging 08/24/2024 3:33 PM CDT Impressions 08/24/2024 3:33 PM CDT =====IMPRESSION:===== No acute findings. Possible pulmonary nodule right upper lobe. Nonemergent CT chest without contrast recommended. Ordered By: EVGENY ROSSI Interpreted By: Ady Isaac, 08/24/2024 3:33 PM Narrative 08/24/2024 3:33 PM CDT [address] [address] EXAMINATION: PA AND LATERAL CHEST Exam date/time: 08/24/2024 2:58 PM Reason For Exam: Congestive heart failure Comparison: 02/04/2014 Technique: 2 views. Findings: Heart size normal. Proximal airways unremarkable. No pneumothorax or pleural effusion. Possible pulmonary nodule right upper lobe. Atherosclerosis. Moderate degenerative changes of the spine. Procedure Note Ady Isaac MD - 08/24/[address] [address] EXAMINATION: PA AND LATERAL CHEST Exam date/time: 08/24/2024 2:58 PM Reason For Exam: Congestive heart failure Comparison: 02/04/2014 Technique: 2 views. Findings: Heart size normal. Proximal airways unremarkable. Nopneumothorax or pleural effusion. Possible pulmonary nodule right upper lobe. Atherosclerosis. Moderate degenerative changes of the spine. =====IMPRESSION:===== No acute findings. Possible pulmonary nodule right upper lobe. NonemergentCT chest without contrast recommended. Ordered By: EVGENY ROSSI Interpreted By: Ady Isaac, 08/24/2024 3:33 PM Evgeny Rossi MD GENERAL IMAGING Final Resul t * (ABNORMAL) PRO BNP ([facility]) (08/24/2024 2:58 PM CDT) PRO-B TYPE NATRIURETIC PEPTIDE 1,267(H) <450 PG/ML 08/24/2024 4:31 PM CDT [facility] Comment: CUT POINTS ESTABLISHED BY [employer]NATIONAL [employer] ON NT PROBNP (ICON) STUDY (2006). AGE INDEPENDENT: <300 PG/ML HAS A 99% NEGATIVE PREDICTIVE VALUE FOR EXCLUDING ACUTE CHF <50 YEARS: >450 PG/ML IS CONSISTENT WITH ACUTE CHF 50-75 YEARS: >900 PG/ML IS CONSISTENT WITH ACUTE CHF >75 YEARS: >1800 PG/ML IS CONSISTENT WITH ACUTE CHF IN PATIENTS WITH RENAL INSUFFICIENCY (GFR <60), >1200 PG/ML YIELDS A DIAGNOSTIC SENSITIVITY AND SPECIFICITY OF 89% AND 72% FOR ACUTE CHF. 08/24/2024 2:58 PM CDT us Evgeny Rossi MD LABORATORY Final Resul t [facility] [address] [place] [address], [place] [phone] * (ABNORMAL) COMPREHENSIVE METABOLIC PANEL (08/24/2024 2:58 PM CDT) [facility] GLUCOSE 143(H) 70 - 99 MG/DL 08/24/2024 4:31 PM CDT [facility] BUN 28(H) 7 - 18 MG/DL 08/24/2024 4:31 PM CDT [facility] CREATININE S/P/B 1.03 0.7 - 1.3 MG/DL 08/24/2024 4:31 PM CDT [facility] SODIUM S/P/B 136 136 - 145 MMOL/L 08/24/2024 4:31 PM CDT [facility] POTASSIUM S/P/B 5.0 3.5 - 5.1 MMOL/L 08/24/2024 4:31 PM CDT [facility] CHLORIDE S/P/B 101 97 - 115 MMOL/L 08/24/2024 4:31 PM CDT [facility] CO2 28.6 21 - 32 MMOL/L 08/24/2024 4:31 PM CDT [facility] CALCIUM S/P/B 9.3 8.5 - 10.1 MG/DL 08/24/2024 4:31 PM CDT [facility] BILIRUBIN TOTAL S/P/B 0.3 0.2 - 1.2 MG/DL 08/24/2024 4:31 PM CDT [facility] Comment: THIS ASSAY IS NOT RECOMMENDED FOR PATIENTS UNDERGOING TREATMENT WITH ELTROMBOPAG DUE TO THE POTENTIAL FOR FALSELY ELEVATED RESULTS. TOTAL PROTEIN S/P/B 7.8 6.4 - 8.2 G/DL 08/24/2024 4:31 PM CDT [facility] ALBUMIN S/P/B 3.0(L) 3.4 - 5.0 G/DL 08/24/2024 4:31 PM CDT [facility] AST 13(L) 15 - 37 U/L 08/24/2024 4:31 PM CDT [facility] ALT 16 16 - 60 U/L 08/24/2024 4:31 PM CDT [facility] ALKALINE PHOSPHATASE S/P/B 83 50 - 136 U/L 08/24/2024 4:31 PM CDT [facility] ANION GAP 6.4 2 - 10 MMOL/L 08/24/2024 4:31 PM CDT [facility] BUN CREATININE RATIO 27.2(H) 6 - 26 08/24/2024 4:31 PM CDT [facility] A/G RATIO 0.6(L) 1.0 - 2.0 RATIO 08/24/2024 4:31 PM T [facility] GFR ESTIMATE 71(L) >90 ML/MIN/1.7 3 M2 08/24/2024 4:31 PM CDT [facility] Comment: NOTE: eGFR is not calculated for patients <18 years of age or gender unknown. This is an estimated GFR calculation using the new CKD EPI creatinine equation without race and so does not require a correction factor for race. This estimated GFR should not be used for calculating drug doses. 08/24/2024 2:58 PM CDT us Evgeny Rossi MD LABORATORY Final Resul t [facility] [address] [place] [address], [place] [phone] * TSH (08/24/2024 2:58 PM CDT) TSH 3.480 0.358 - 3.74 uIU/ML 08/24/2024 4:31 PM CDT [facility] Comment: HIGH DOSES OF BIOTIN MAY INTERFERE WITH THIS TEST RESULT. CORRELATION TO CLINICAL HISTORY AND PRESENTATION RECOMMENDED. 08/24/2024 2:58 PM CDT Evgeny Rossi MD LABORATORY Final Resul t [facility] [address] [place] [address], * ELECTROCARDIOGRAM (08/24/2024 2:24 PM CDT) 08/24/2024 2:24 PM CDT Narrative [facility] - 08/25/2024 7:56 PM CDT [facility] Test Date: 2024-08-24 Pat Name: NANCY COLLEENPARMINDER Department: 112 Room: Gender: Male Component Lab Tech: : 1940 Requested By: EVGENY ROSSI Order Number: [id number] Reading ANDERSON Rossi Measurements Intervals [place] Rate: 70 P: 0 NH: 0 QRS: -76 QRSD: 211 T: 102 QT: 503 QTc: 543 Interpretive Statements ELECTRONIC VENTRICULAR PACEMAKER ABNORMAL RHYTHM ECG Procedure Note Evgeny Rossi MD - 08/25/2024 [facility] Test Date: 2024-08-24 Pat Name: NANCY GROVER Department: 112 Room: Gender: Male Component Lab Tech: : 1940 Requested By: EVGENY ROSSI Order Number: [id number] Reading ANDERSON Rossi Measurements Intervals [place] Rate: 70 P: 0 NH: 0 QRS: -76 QRSD: 211 T: 102 QT: 503 QTc: 543 Interpretive Statements ELECTRONIC VENTRICULAR PACEMAKER ABNORMAL RHYTHM ECG Evgeny Rossi MD PROCEDURES-ORDERABLE NO BUNNY RGE Final Result Performing Organization Address City/[facility]/ZIP Co de Phone Number [facility] * (ABNORMAL) HEMOGLOBIN, GLYCOSYLATED (09/06/2021 6:20 PM CDT) HGB A1C 6.3(H) <5.7 % 09/07/2021 12:52 AM CDT [facility] Comment: ADA GUIDELINES 2010 5.7 TO 6.4% INCREASED RISK OF DIABETES > OR = 6.5% CONSISTENT WITH DIABETES ESTIMATED AVG GLUCOSE 134 mg/dL 09/07/2021 12:52 AM CDT [facility] 09/06/2021 6:20 PM CDT Deborah Parrish NP LABORATORY Final Result Performing Organization Address [facility] de Phone Number [facility] [address] [place] [address], from Last 3 Months or Most Recently Relevant to Health Maintenance Additional Health Concerns Infection Onset Date Last Indicated ESBL - Extended Spectrum Bet a-lactamase Comment:09/06/21 +ESBL Urine 09/09/2021 09/09/[address] [place] [address] MEDICARE [facility] Advance Directives Documents on File Type Date Recorded 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
--- OUTSIDE RECORDS SUMMARY | 2024-09-09 09:38 | XMS_ITS | Referral Summary ---
Author Organization [facility] [place] Lenz [place] nsion Address [address] [place] [address] Care Team Providers Care House Nurse Name Role Phone Margarita Jaimes MD Unavailable [phone] Jeevan Gibson MD PhD Unavailable [phone] Olu Reis MD Unavailable [phone] Brant Rodriguez DPM Unavailable + [phone] Cathi Freeman MD Unavailable Tiana Hilario NP Primary Care Provider [phone] Encounters Date Type Department Care Team Description 06/14/2024 7:30 AM CDT Ancillary Procedure [facility] Cardiology [address] [facility] [address] [address] Complete atrioventricular block (HCC); Cardiac resynchronization therapy pacemaker (TRACK REPAIR PERSON-P) in place; Permanent atrial fibrillation (HCC) from Last 3 Months Allergies Active [...] (50 mg total) by mouth nightly PER [facility]ICATION [facility] Active docusate sodium (COLACE) 100 [...] extended release tabletIndications:Ca rdiac resynchronization therapy pacemaker (TRACK REPAIR PERSON-P) in place,PVC's (premature ventricular contractions),Perman ent atrial fibrillation (HCC) Take 1 tablet (25 mg total) by mouth daily 90 tablet 3 01/20/20 24 025 Active Active Problems Problem Noted Date Diagnosed Date Palliative care by specialist 07/10/2023 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 Dr. Dickens does recommend intermediate school teacher helton but patient is resistant at this [...] . Assessment & Plan (04/29/2022 12:59 PM REVIT DRAFTER): -Has had 1 confirmed, possibly 2-3 other [...] apixaban Assessment & Plan (05/17/2021 10:47 AM REVIT DRAFTER): Assessment/plan: Continue ASA and statin therapy. Bilateral [...] lispro. Assessment & Plan (05/17/2021 10:46 AM REVIT DRAFTER): Assessment/plan: Insulin strict glucose control Assessment & [...] 0 11/03/2017 Basal cell carcinoma (BCC) of congregation region 10/2017 Basal cell carcinoma (BCC) of [...] supplement Assessment & Plan (02/23/2020 10:37 AM REVIT DRAFTER): Continue daily supplement Assessment & Plan (09/01/2019 8:28 AM CDT): Continue supplement Assessment & Plan (01/19/2019 1:00 PM REVIT DRAFTER): Continue supplement, recheck labs Assessment & Plan (07/03/2018 9:35 AM CDT): Continue supplement History of fall 06/20/2015 Assessment & Plan (08/15/2023 1:04 PM CDT): Patient did slip from bed 6/ & has been complaining of L rib pain since. Will obtain XR to ro. He does report better but asking for XR. Assessment & Plan (05/19/2020 5:35 AM REVIT DRAFTER): Patient has a history of falls and [...] Continue to hold Metoprolol. Jardiance dc by . Pt will need to fu with Cardio [...] regimen. Assessment & Plan (04/27/2019 12:44 PM REVIT DRAFTER): Hypertension is controlled. Continue current regimen. Assessment [...] & helton 09/11. Urology is not wanting prison helton but patient is not. Will discuss [...] 02/23/2023 Assessment & Plan (05/17/2021 10:51 AM REVIT DRAFTER): Assessment/plan: Pressure ulceration the lateral ankles likely from his bed. Continue local wound care with Betadine paint and offloading. Eventually he will likely need an MRI to rule out osteomyelitis. Cognitive communication deficit 03/09/2021 07/31/2023 Myalgia 04/27/2019 02/23/2023 Dermatitis 04/27/2019 02/23/2023 Assessment & Plan (04/27/2019 1:50 PM REVIT DRAFTER): No evidence of cellulitis. Moisturize with vaseline. Use OTC cortisone OTC. Acute cystitis 01/20/2019 07/31/2023 Low back pain 01/19/2019 09/22/2023 Assessment & Plan (01/19/2019 1:19 PM REVIT DRAFTER): Will check urinalysis with reflex to culture Obesity (BMI 30-39.9) 08/28/20182022 Neuropathy 03/24/2018 07/31/2023 Generalized weakness 02/27/2018 12/17/2 023 Actinic keratosis 02/25/2017 09/29/2023 Seborrheic keratoses 02/25/2017 024 Alzheimer's disease 10/01/2016 11/27/19 18 Uncontrolled type 2 diabetes mellitus with hyperglycemia 05/22/2016 02/23/2023 Assessment & Plan (10/10/2020 8:02 AM CDT): Glucoses within a reasonable margin of safety, so would not make any changes in his regimen at this time Assessment & Plan (02/23/2020 10:38 AM REVIT DRAFTER): Glucoses a little high, but he has [...] labs Assessment & Plan (01/19/2019 1:00 PM REVIT DRAFTER): Glucoses within a good margin of safety, but a little high so he would benefit from a little more basal insulin Assessment & Plan (07/03/2018 9:35 AM CDT): Mild hyperglycemia, but maintaining a good margin of safety. I would not change therapy at this time Muscle weakness of lower extremity 03/20/2016 02/23/2023 Vascular dementia 06/20/2015 02/23/2023 Assessment & Plan (05/19/2020 5:38 AM REVIT DRAFTER): Patient may experience some deficits with stress or electrolyte disturbances as was with his left leaning episodes. Will continue to monitor and emphasize safety to family. Assessment & Plan (02/23/2020 10:37 AM REVIT DRAFTER): He is supported by his . Need to minimize risk of hypoglycemia Dysphagia 06/30/2014 09/08/2023 Assessment & Plan (05/19/2020 5:36 AM REVIT DRAFTER): Patient is having chocking episodes and the [...] trazodone. Assessment & Plan (05/19/2020 5:31 AM REVIT DRAFTER): As the patient continues to have functional [...] FIBRILLATION Assessment & Plan (05/17/2021 10:46 AM REVIT DRAFTER): Assessment/plan: Metoprolol Assessment & Plan (04/27/2019 12:44 PM REVIT DRAFTER): Continue rate control. Continue anticoagualtion. Assessment & Plan (12/04/2018 1:38 PM CDT): Continue metoprolol. S/p pacemaker. Assessment & Plan (11/26/2017 7:05 AM CDT): Continue rate control. Continue anticoagualtion. Diabetic hypoglycemia 03/26/20132022 Pacemaker at end of battery life 10/27/2012 07/31/2023 Skin callus 05/04/2012 09/29/2023 Onychomycosis due to dermatophyte 05/04/2012 02/23/2023 BPH with obstruction/lower u rinary tract symptoms 02/23/2023 Assessment & Plan (04/29/2022 12:57 PM REVIT DRAFTER): -On flomax. -PVR today was 13 mL. [...] bacteria infection 07/31/2023 Memory loss 07/31/2023 Immunizations Immunization Administration Dates Next Due Influenza, [...] drink = 0.6 oz pur e alcohol) [facility] Utilities Answer Date Recorded In the past 12 months has [employer], oil, or water [employer] threatened to shut off services in your [...] any clubs o r organizations such as zoroastrian groups, unions, fraternal or athletic groups, or [...] place to sleep or slept in a snf (including now)? No 07/09/2023 Personal Safety Answer Date Recorded Have you ever been in or are you currently in a harmful physical or emotional relationship or is someone making you feel afraid or unsafe? Denies 01/12/2024 Sex and Gender Information Value Date Recorded Sex Assigned at Male 05/11/2018 9:16 AM REVIT DRAFTER Legal Sex Male 1:34 AM REVIT DRAFTER Gender Identity Not on file Sexual Orientation Straight 05/11/2018 9: 16 AM REVIT DRAFTER Last Filed Vital Signs Vital Sign Reading Time Taken Comments Blood Pressure 104/60 01/20/2024 12:35 PM REVIT DRAFTER Pulse 64 01/20/2024 12:35 PM REVIT DRAFTER Temperature 36 C (96.8 F) 01/12/2024 1:05 PM REVIT DRAFTER Respiratory Rate 14 01/12/2024 2:10 PM REVIT DRAFTER Oxygen Saturation 99% 01/20/2024 12:35 PM REVIT DRAFTER Inhaled Oxygen Concentration - - Weight 108 kg (238 lb) 02/17/2024 11:07 AM REVIT DRAFTER Height 190.5 cm (6' 3) 02/17/2024 11:07 AM REVIT DRAFTER Body Mass Index 29.75 02/17/2024 11:07 AM REVIT DRAFTER Plan of Treatment Not on file Medical Devices Implanted Type Area Senior Commissary Agent Device Identifier Shelf Expiration Date Model / Serial / Lot Pacemaker Pacemaker Left: Chest Lead Pacing Acuity X4 Irox [id number] Titanium Dexamethasone Acetate 4 Cm Space L95 Cm Od3.9-5.2 Fr Odsec2.6 Fr Left Ventricular Otw Quadripolar Long Straight Taper Tip Accept .081 In Guide Catheter Is4-Ll Implanted:Qty: 1 on 06/06/2022 by Jared Irving MD at [facility] In [employer] Anisha [id number] 08/21/2023 [id number] / [id number] / Xapo Scientific C.R.M. Valitude X4 Latitude Nxt Hf Perspectiv Easyview 2.6fr 4.45x6.17cm U128 - [id number] - [id number] Implanted:Qty: 1 on 06/06/2022 by Jared Irving MD at [facility] Scientific C.R.M. [id number] 10/04/2023 U128 / [id number] / Medtronic Inc Tyrx Absorbable Antibacterial Envelope-Large 3.3x2.9in [id number] - [id number] Implanted:Qty: 1 on 06/06/2022 by Jared Irving MD at [facility] Medtronic Inc [id number] / / TerNetskope Medical Anisha Angio-Seal Vip 6fr Closere Device [id number] - [id number] Implanted:Qty: 1 on 01/12/2024 at [facility] [employer] Anisha 05/11/2024 [id number] / / [id number] Packet Digital Coil Embo Detach Soft Embold 3maf4ei Sterile Latex-Free [id number] - [id number] Implanted:Qty: 1 on 01/12/2024 at [facility] In [employer] Anisha 07/09/2026 [id number] / / [id number] [facility] Make YES! Happen Embosphere Prefill Saline Syringe Compressible Nonaggregate S420gh - [id number] Implanted:Qty: 1 on 01/12/2024 at [facility] Easy Metrics 10/23/2026 S420GH / / [id number] Medtronic Inc Coil Embolization Coated Detachable Helical Concerto [id number] Nylon Li-3-20-[place] - [id number] Implanted:Qty: 1 on 01/12/2024 at [facility] Medtronic Inc 11/07/2025 NV-4-10- HELIX / / [id number] Medtronic Inc Coil Embolization Coated Detachable Helical Concerto 4rjv0kt Nylon Cr-0-9-[place] - [id number] Implanted:Qty: 1 on 01/12/2024 at [facility] Medtronic Inc 06/16/2026 NV-4-8-H ELIX / / [id number] Explanted Type Area Senior Commissary Agent Device Identifier Shelf Expiration Date Model / Serial / Lot Cook Medical Inc [id number] 6fr 22cm 145cm Radiopaque Positioner Filiform Flexible Tip - [id number] Implanted:Qty: 1 on 07/11/2023 by Dre Chu MD at [facility] Explanted:Qty: 1 on 07/25/2023 by Dre Chu MD Stent Right: Ureter [employer] Inc [id number] 03/21/2026 [id number] / / [id number] Cook Medical Inc [id number] 6fr 22cm 145cm Radiopaque Positioner Filiform Flexible Tip - [id number] Implanted:Qty: 1 on 07/25/2023 by Dre Chu MD at [facility] Explanted:08/09 by Landon Dickens MD (Quantity not on file) Right: Ureter [employer] Inc [id number] 03/21/2026 [id number] / / [id number] Description:Removed by patisavannah gudino via string Variation [employer] Medical Inc [id number] 6fr 26cm 145cm Radiopaque Positioner Filiform Flexible Tip - [id number] Implanted:Qty: 1 on 09/03/2023 by Landon Dickens MD at [facility] Explanted:Qty: 1 on 09/08/2023 Right: Kidney Cook Medical Inc [id number] 04/18/2026 [id number] / / [id number] Description:Removed by patie nt at home via string Procedures Procedure Name Priority Date/Time Associated Diagnosis Comments DEVICE CHECK - REMOTE Routine 06/14/2024 9:52 AM CDT Complete atrioventricular block (HCC) Cardiac resynchronization therapy pacemaker (TRACK REPAIR PERSON-P) in place Permanent atrial fibrillation (HCC) EGFR Routine 01/12/2024 7:33 AM REVIT DRAFTER Atrial flutter, unspecified type (HCC) HEMOGLOBIN A1C Routine 07/09/2023 7:45 AM CDT LIPID PANEL Routine 06/09/2023 1:29 PM CDT Lipid screening ALBUMIN CREATININE RATIO, URINE Routine 02/01/2019 10:44 AM REVIT DRAFTER Low back pain without sciatica, unspecified back pain laterality, unspecified chronicity from Last 3 Months or Most Recently Relevant to Health Maintenance Results * DEVICE CHECK - REMOTE (06/14/2024 9:52 AM CDT) Anatomical Region Laterality Modality Other Narrative 07/23/2024 3:48 PM CDT Table formatting from the original result was not included. Patient ID: Nancy Villareal is a 84 y.o. male. This patient has a(n) [place] [employer] cardiac resynchronization therapy pacemaker. They had [...] Final Result * eGFR (01/12/2024 7:33 AM REVIT DRAFTER) eGFR 62 >=60 mL/min/1. 73 m2 Comment: [...] last reviewed 2021. Blood 01/12/2024 7:33 AM REVIT DRAFTER 01/12/2024 8:07 AM REVIT DRAFTER Alton Delaney MD LAB BLOOD ORDERABLES Final Result PRATIBHA [facility] Department [place] [address] * (ABNORMAL) Hemoglobin A1c (07/09/2023 7:45 AM CDT) Hgb A1C 10.0(H) 4.0 - 5.6 % Estimated Average Glucose 240 mg/dL PRATIBHA MARS Comment: The ADA recommends reporting an estimated Average Glucose (eAG) with all Hemoglobin A1c results using the equation derived from a study of 507 normal and diabetic adults. Minority populations were underrepresented and children were not included. (Diabetes Care 31:2493-9832, 2008). The eAG is not equivalent to a fasting glucose. Blood 07/09/2023 7:45 AM CDT 07/09/2023 8:15 AM CDT us Aleksey Dawn MD LAB BLOOD ORDERABLES Final Result PRATIBHA [address] [facility] Department [place] [address] * Lipid panel (06/09/2023 1:29 PM CDT) [...] fasting for 8 hours or more?->Yes Gavino Dewey MD LAB BLOOD ORDERABLES Fi nal Result PRATIBHA [address] [facility] Department [place] [address] * Albumin Creatinine Ratio, Urine (02/01/2019 10:44 AM REVIT DRAFTER) Creatinine ur 151.4 Not Estab. mg/dL [facility] - 01 Microalbumin, ur 12.6 Not Estab. ug/mL [facility] - 01 Microalbumin/cre at ratio 8.3 0.0 - 30.0 mg/g creat [facility] - 01 Comment: Normal: 0.0 - 30.0 Albuminuria: 31.0 - 300.0 Clinical albuminuria: >300.0 Urine 02/01/2019 10:4 4 AM REVIT DRAFTER 02/01/2019 Narrative [facility] - 02/05/2019 12:08 PM REVIT DRAFTER Performed at: [facility] [address] [id number] Glazing Department Supervisor: Percy Aguilar PhD, Phone: [phone] Margarita Jaimes MD LAB URINE ORDERABLES Final Result Performing Organization Address City/State/[facility] Phone Number [facility] - 01 from Last 3 Months or Most Recently Relevant to Health Maintenance Additional Health Concerns Infection Onset Date Last Indicated MDR gram neg/ESBL Comment:Contact 09/10/2021 10/19/2023 Insurance MEDICARE [facility] MEDICARE SUPPLEMENT MEDICARE [facility] [address] MEDICARE BLUE CROSS MEDICARE SUPPLEMENT Advance Directives For more information, please contact: [phone] Documents on File Type Date Recorded Patient Pediatric Orthodontist Expl anation ADVANCE DIRECTIVE 10/21/2023 1:10 PM POLST - Phys Order for PT Preferences ADVANCE DIRECTIVE 09/19/2021 4:04 PM POLST - Phys Order for PT Preferences ADVANCE DIRECTIVE 06/01/2021 3:02 PM Power of Mailing Clerk-Medical ADVANCE DIRECTIVE 03/18/2019 3:08 PM Power of Mailing Clerk - Medical * Full Code (Latest Code [...] 10:03 PM 04/04/2023 2:46 AM Care Teams House Nurse Relationship Specialty Start Date End Date Tiana Hilario NP [address] [address] [place] [address] PCP - General Geriatric Medicine 01/12/24 Margarita Jaimes MD Referring Physician Endocrinology Diabetes & Metabolism 08/30/19 Jeevan Gibson MD PhD Referring Physician Cardiology 02/22/20 Olu Reis MD Referring Physician Cardiology 02/22/20 Brant Rodriguez DPM Referring Physician Podiatry 02/22/20 Cathi Freeman MD [id number] [place] [address] Referring Physician Geriatric Medicine 10/09/20
--- OUTSIDE RECORDS SUMMARY | 2024-09-09 09:39 | XMS_ITS | Data Portability ---
Author Organization [facility] Address [address] [place] [address] Care Team Providers Care Internal Affairs Commander Name Role Phone BHUMI EILEEN Primary Care Provider [phone] Assessment Encounter Date Assessment Date Assessment LastModified [...] . Lab BMP, serum or plasma 024 ATHENAFAX [facility], [address], [address], [place], [address], 4 08:39:05 CMP, serum or plasma 024 ATHENAFAX [facility], [address], [address], [place], [address], 4 09:33:46 CBC w/ auto diff 024 024 ATHENAFAX [facility], [address], [address], [place], [address], 4 09:33:46 lipid panel, serum 024 024 ATHENAFAX [facility], [address], [address], [place], [address], 4 09:33:45 Referral None recorded . Procedures [...] Available potassium chloride ER 20 mEq tablet,extended release(part/ st) active Not Available Not Available Not [...] Body mass index (BMI) Body height Systolic And Diastolic Provider Name and Address Organization Details Last Updated DateTime 03/26/2023 28916.4 g 26.6 kg/m2 189.23 cm 124/84 mm[Hg] Karen Cutler MA [facility] 03/26/2023 14:39:23 Social History Question Answer Notes LastModified by Organizat ion Details LastModified Time Tobacco Smoking Status Never Smoker Karen Cutler MA null, [facility] 03/26/2023 14:30:38 What Was The Date Of Your Most Recent Tobacco Screening? 03/26/2023 [email or web address] Information not available 03/26/2023 Sex: Unknown Functional Status None recorded. Mental Status None recorded. Family History Nothing Reported. Medical History No medical history recorded. Past Encounters Encounter ID Performer Location Encounter Start Date Encounter Closed Date Diagnosis/Indication Diagnosis SNOMED-CT Code Diagnosis ICD10 Code Diagnosis Note [id number] Gavino Dewey MD [facility] [place] [facility] [address] [facility] [place] [address] 03/26/2023 14:10:58 04/08/2023 14:41:44 Congestive heart failure 13133237 I50.9 Chronic at rial fibrillation 077527359 I48.20 Permanent cardiac pacemaker 8161256895 25698 Z95.0 Essential hypertension 48103282 I10 Health Concerns Section Related Observation LastModified by Organization Detai ls LastModified Time None Recorded Concern Status LastModified by Organization Details LastModified Time None Recorded Advance Directives Directive None Recorded Payers Insurance Date Sequence Insurance Name Policy Number Policy Lopez Covered Member ID Lopez Member ID Guarantor Name 02/26/2024 1 [place] [id number] Maida Delacruz Zipfel [id number] Maida Delacruz Zipfel 02/26/2024 1 [place] Maida Delacruz Zipfel [id number] Maida S Zipfel 02/26/2024 [place] [facility] NONE Maida Delacruz Zipfel [id number] Maida S Zipfel 03/26/2023 1 [place] (MEDICARE SUPPLEMENT) [id number] Maida Zipfel [id number] Maida S Zipfel Notes Date Note Type Note Provider [...] dyspnea. Gavino Dewey MD Attn: Accounting[address] [place], [address], [place] 03/27/2023 13:43:44
--- NOTE | 2024-09-09 10:00 | PC.NURSE ---
SPOKE WITH NURSE AT [facility] WHO REPORTS THAT PT HASN'T URINATED SINCE FRIDAY NIGHT. UNKNOWN LAST BM.
--- NOTE | 2024-09-09 10:05 | ED.GENADULT ---
HPI - General Adult General Chief complaint: Recheck/Abnormal Lab/Rx Stated complaint: pulled out PICC line Time Seen by Provider: 09/09/24 09:32 Source: patient and old records reviewed Mode of arrival: EMS Limitations: no limitations History of Present Illness HPI narrative: Patient is an 84-year-old male who presents the ED via EMS with report of dislodged PICC line. Patient is a resident of [facility]. Patient was recently admitted to the hospital here, found to have urinary tract infection. Has history of multi-drug resistant E coli. Was started on IV ertapenem, received PICC line in left upper extremity to return to long term. Patient reportedly removed his PICC line yesterday. [facility] did administer IM ertapenem today, but he was sent here today as long term staff also reported that patient has not urinated or had a bowel movement in 3 days. He does have hx of previous retention. Denies abd pain, N/V. Denies fevers. Related Data Home Medications ?Medication ?Instructions ?Recorded ?Confirmed ?Last Taken ?Type divalproex 125 mg tablet,delayed 125 mg PO Q8H 10/29/23 09/04/24 Unknown History release (Depakote) albuterol sulfate 90 mcg/actuation 2 puff inhalation Q4H PRN 09/04/24 09/04/24 Unknown History aerosol inhaler shortness of breath apixaban 5 mg tablet (Eliquis) 5 mg PO BID 09/04/24 09/04/24 Unknown History citalopram 10 mg tablet 10 mg PO .bedtime 09/04/24 09/04/24 Unknown History finasteride 5 mg tablet 5 mg PO .evening 09/04/24 09/04/24 Unknown History insulin aspart U-100 100 unit/mL 1 sliding scale dose subcut 09/04/24 09/04/24 Unknown History subcutaneous solution (Novolog USEASDIRECTD U-100 Insulin aspart) methenamine hippurate 1 gram tablet 1 g PO BID 09/04/24 09/04/24 Unknown History metoprolol succinate 25 mg 25 mg PO DAILY 09/04/24 09/04/24 Unknown History tablet,extended release 24 hr omeprazole 20 mg capsule,delayed 20 mg PO DAILY 09/04/24 09/04/24 Unknown History release sacubitril 24 mg-valsartan 26 mg 1 tablet PO BID 09/04/24 09/04/24 Unknown History tablet (Entresto) spironolactone 25 mg tablet 25 mg PO DAILY 09/04/24 09/04/24 Unknown History torsemide 10 mg tablet 10 mg PO DAILY 09/04/24 09/04/24 Unknown History Allergies Allergy/AdvReac Type Severity Reaction Status Date / Time cephalexin Allergy Unknown Verified 09/04/24 11:17 Review of Systems Review of Systems: All systems reviewed & are unremarkable except as noted in HPI. All systems reviewed & are unremarkable except as noted in HPI and below PMFSH Social History Social History Smoking status: Never smoker Alcohol intake: never Substance use: never Substance use type: does not use Do You Feel Safe in your Home?: Yes Lack of Transportation: No Lack of Food: Never True Current Housing: I Have Housing Concerned About Future Housing: No Difficulty Paying Gas/Electric Bills: No Difficulty Paying for Meds: No Currently Unemployed: No Education: High School Diploma/GED Difficulty w/ Childcare or Family Care: No Spiritual care concerns: No Exam Narrative: GENERAL: Elderly, well-nourished, non-toxic, in no acute distress. HEAD: Normocephalic, atraumatic. RESPIRATORY: Airway patent, respirations nonlabored. Clear to auscultation bilaterally, no rales, rhonchi, wheezing. CARDIOVASCULAR: Regular rate and rhythm without murmurs, rubs, or gallops. ABDOMINAL: Mild fullness throughout abdomen, soft. TTP throughout lower abdomen. Normoactive BS. MUSCULOSKELETAL: Moves all extremities. No gross deformities. SKIN: Warm, dry, normal color. NEURO: Alert, able to answer questions. Speech clear. No ataxic movements. PSYCHIATRIC: Appropriate mood and affect. Normal interaction. Course Vital Signs Vital signs: Vital Signs Temperature 97.5 F L 09/09/24 09:26 Pulse Rate 70 09/09/24 09:26 Respiratory Rate 16 09/09/24 09:26 Blood Pressure 103/52 L 09/09/24 09:26 Pulse Oximetry 99 09/09/24 09:26 Oxygen Delivery Room Air 09/09/24 09:26 Temperature 97.5 F L 09/09/24 09:26 Pulse Rate 70 09/09/24 12:30 Respiratory Rate 21 H 09/09/24 12:30 Blood Pressure 114/62 09/09/24 12:01 Pulse Oximetry 98 09/09/24 10:01 Oxygen Delivery Room Air 09/09/24 09:26 Medical Decision Making MDM Narrative Medical decision making narrative: Patient presented to ED with concern for dislodged PICC line. Currently receiving ertapenem for multidrug resistant UTI. Resident at local assisted living facility. Reportedly removed PICC himself over facility staff was able to give IM version of medication. Facility staff also reported lack of urination/bowel movement for the past 3 days. Vital signs are stable upon arrival. Blood pressure borderline, but stable, MAPs above 60. Fluids ordered. Patient was bladder scanned and found to have > 450ml of urine. Tom catheter was placed. UA here today shows improvement of infection. Re-sent for cx today. Laboratory studies today reassuring. No leukocytosis. Stable H&H kidney function. Consistent with previous records. CT scan of abdomen/pelvis was obtained and showing evidence of constipation, no other concerning findings. No obstruction. Patient felt to be safe for discharge back to facility to continue IM ertapenem, continuous Tom catheter, and received bowel regimen there. Discussed bowel regimen on paperwork. Discussed need for follow-up with Urology for Tom catheter removal. Patient otherwise has remained stable throughout ED stay. Return precautions discussed on paperwork. Patient discharged in stable condition. Medical Records Medical records reviewed: Yes I reviewed the external patient's medical records. Vital Signs Vital Signs: Vital Signs Temperature 97.5 F L 09/09/24 09:26 Pulse Rate 70 09/09/24 09:26 Respiratory Rate 16 09/09/24 09:26 Blood Pressure 103/52 L 09/09/24 09:26 Pulse Oximetry 99 09/09/24 09:26 Oxygen Delivery Room Air 09/09/24 09:26 Temperature 97.5 F L 09/09/24 09:26 Pulse Rate 70 09/09/24 12:30 Respiratory Rate 21 H 09/09/24 12:30 Blood Pressure 114/62 09/09/24 12:01 Pulse Oximetry 98 09/09/24 10:01 Oxygen Delivery Room Air 09/09/24 09:26 Lab Data Lab results reviewed: Yes I reviewed the patient's lab results. 09/09/24 10:44 07/03/25 10:44 Labs: Lab Results 09/09/24 Range/Units 10:44 WBC 9.1 (4.5-10.0) K/mm3 RBC 3.96 L (4.6-6.20) M/mm3 Hgb 12.1 L (14.0-18.0) g/dL Hct 38.5 L (42.0-52.0) % MCV 97.2 (80-100) fl MCH 30.6 (26-34) pg MCHC 31.4 L (32-36) g/dl RDW 12.8 (11.5-14.5) % Plt Count 199 (150-375) k/mm3 MPV 10.2 (7.4-10.4) fl Immature Gran % (Auto) 0.3 (0-0.5) % Neut % (Auto) 74.5 H (45.5-73.1) % Lymph % (Auto) 13.9 L (18.3-44.2) % [place] % (Auto) 7.4 (2.6-8.5) % Eos % (Auto) 3.5 (0-4.4) % Baso % (Auto) 0.4 (0.2-1.2) % Lymph # (Auto) 1.26 (0.9-3.2) K/mm3 [place] # (Auto) 0.7 H (0.1-0.6) K/mm3 Eos # (Auto) 0.3 (0-0.3) K/mm3 Baso # (Auto) 0.0 (0.0-0.1) K/mm3 Abs Immat Gran (auto) 0.03 (0.00-0.031) K/mm3 Absolute Neuts (auto) 6.8 H (1.3-6.7) K/mm3 Absolute Nucleated RBC 0.000 (0.0-0.012) K/mm3 Nucleated RBC % 0.0 (0.0-0.2) % Sodium 137 (137-145) mmol/L Potassium 4.3 (3.4-5.0) mmol/L Chloride 98 (98-107) mmol/L Carbon Dioxide 32 H (22-30) mmol/L Anion Gap 7 (4-12) mmol/L BUN 30 H (9-20) mg/dL Creatinine 1.06 (0.7-1.3) mg/dL Estim Creat Clear Calc Not Reportable Estimated GFR > 60 (59 - ) Glucose 197 H (65-110) mg/dL Calcium 9.1 (8.4-10.2) mg/dL Total Bilirubin 0.4 (0.2-1.3) mg/dL AST 26 (17-59) U/L ALT 16 (6-50) U/L Alkaline Phosphatase 71 (38-126) U/L Total Protein 7.7 (6.3-8.2) g/dL Albumin 3.7 (3.5-5.1) g/dL Urine Color Yellow (Yellow) Urine Appearance Clear (Clear) Urine pH 6.0 (5.0-9.0) Ur Specific [place] 1.012 (1.001-1.035) Urine Protein Negative (Negative) mg/dL Urine Glucose (UA) Negative (Negative) mg/dL Urine Ketones Negative (Negative) mg/dL Ur Blood (Man) Negative (Negative) Urine Nitrate Negative (Negative) Urine Bilirubin Negative (Negative) Urine Urobilinogen 0.2 (<2.0) mg/dL Leukocyte Esterase Rfl Trace H (Negative) IMELDA/UL Urine RBC 0-2 (0-2) /hpf Urine WBC 6-10 H (0-3) /hpf Ur Squamous Epith Cells None seen (Few) /hpf Urine Bacteria None seen /hpf Urine Casts 3-5 Imaging Data Attestation: I personally reviewed and interpreted this imaging study as follows: Radiologist's impression: ITS Impressions Abdomen/Pelvis CT 09/09/24 11:39 IMPRESSION: 1. Moderate amount of predominately distal colonic stool consistent with provided history of constipation. No other acute intra-abdominal/pelvic process. 2. Very small right pleural effusion with associated peripheral pleural parenchymal scarring the right lower lung. 3. Mild cardiomegaly. 4. Prostatomegaly. Discharge Plan Discharge Clinical Impression: Acute urinary retention Urinary tract infection Qualifiers: Urinary tract infection type: acute cystitis Hematuria presence: without hematuria Qualified Code(s): N30.00 - Acute cystitis without hematuria Constipation Qualifiers: Constipation type: unspecified constipation type Qualified Code(s): K59.00 - Constipation, unspecified Patient Disposition: NH [facility]/Asst Living Condition: Stable Instructions: Antibiotic Form, Constipation (ED), Urinary Retention in Men (ED), Urinary Tract Infection in Men (ED) Additional Instructions: Continue course of ertapenem as directed for urinary tract infection. Patient had Tom catheter placed today for urinary retention. He will need to follow-up with urology within 1 week for Tom catheter removal. Patient was found to be constipated today. Recommend MiraLax and Dulcolax daily as needed for constipation. Encourage patient to drink plenty of fluids. Return patient to the ED for new or worsening concerns. Patient Language: Indonesian Prescriptions: New polyethylene glycol 3350 [Miralax] 17 gram/dose powder 17 g PO DAILY Qty: 119 0RF bisacodyl [Dulcolax (bisacodyl)] 5 mg tablet,delayed release (DR/EC) 5 mg PO ONCE PRN (Reason: constipation) Qty: 10 0RF No Action divalproex [Depakote] 125 mg tablet,delayed release (DR/EC) 125 mg PO Q8H citalopram 10 mg tablet 10 mg PO .bedtime torsemide 10 mg tablet 10 mg PO DAILY spironolactone 25 mg tablet 25 mg PO DAILY methenamine hippurate 1 gram tablet 1 g PO BID metoprolol succinate 25 mg tablet extended release 24 hr 25 mg PO DAILY albuterol sulfate 90 mcg/actuation HFA aerosol inhaler 2 puff INHALATION Q4H PRN (Reason: shortness of breath) finasteride 5 mg tablet 5 mg PO .evening Eliquis 5 mg tablet 5 mg PO BID Entresto 24-26 mg tablet 1 tablet PO BID omeprazole 20 mg capsule,delayed release(DR/EC) 20 mg PO DAILY insulin aspart U-100 [Novolog U-100 Insulin aspart] 100 unit/mL solution 1 sliding scale dose subcut USEASDIRECTD Rx Instructions: If blood sugar less than 60 call MD. Blood sugar 170-200 give 2 units, blood sugar 201-250 give 4 units, blood sugar 251-300 give 6 units, blood sugar 301-350 give 8 units, blood sugar 351-400 give 10 units if blood sugar is greater than 400 call MD. ertapenem 1 gram recon soln 1 g IV DAILY 4 Days Follow-up/Referrals: Lanny,Jonah Arthur DO [Primary Care Provider] - Chris Hall MD [Physician] - (Urology) Time of Disposition: 12:33
[2024-09-09 10:51] LABS: Hematocrit 38.5 % (42.0-52.0); Hemoglobin 12.1 g/dL (14.0-18.0); Immature Granulocyte Percent A 0.3 % (0-0.5); Lymphocytes Absolute Auto 1.26 K/mm3 (0.9-3.2); Mean Corpuscular HGB Conc 31.4 g/dl (32-36); Mean Corpuscular Hemoglobin 30.6 pg (26-34); Mean Corpuscular Volume 97.2 fl (80-100); Nucleated Red Blood Cells Absolute Auto 0.000 K/mm3 (0.0-0.012); Nucleated Red Blood Cells Perc 0.0 % (0.0-0.2); Platelet Count Result 199 k/mm3 (150-375); Red Blood Count 3.96 M/mm3 (4.6-6.20); White Blood Count 9.1 K/mm3 (4.5-10.0)
[2024-09-09] MEDS: SODIUM CHLORIDE 0.9% IV 500 ML 999 ML IV CONT (10:54)
[2024-09-09 10:56] LABS: Add Urine Microscopic? YES; Appearance Urine Clear (Clear); Glucose Urine UA Negative (Negative); Leukocyte Esterase Ur Trace LEU/UL (Negative); Nitrate Urine Negative (Negative); Specific Grav Ur 1.012 (1.001-1.035)
[2024-09-09 11:01] LABS: Alanine Aminotransferase 16 U/L (6-50); Albumin Level 3.7 g/dL (3.5-5.1); Alkaline Phosphatase 71 U/L (38-126); Anion Gap 7 mmol/L (4-12); Aspartate Amino Transferase 26 U/L (17-59); Bilirubin,Total 0.4 mg/dL (0.2-1.3); Blood Urea Nitrogen 30 mg/dL (9-20); Calcium 9.1 mg/dL (8.4-10.2); Carbon Dioxide 32 mmol/L (22-30); Chloride 98 mmol/L (98-107); Estimated Glomerular Filt Rate > 60; Glucose 197 mg/dL (65-110); Potassium 4.3 mmol/L (3.4-5.0); Sodium 137 mmol/L (137-145); Total Protein 7.7 g/dL (6.3-8.2)
== END 2024-09-09 14:05 ==
PROVIDERS: Emergency Provider Physician Assistant; PCP Internal Medicine
DX: R33.9 Retention of urine, unspecified (principal); N30.00 Acute cystitis without hematuria; T82.524A Displacement of infusion catheter, initial encounter; K59.00 Constipation, unspecified; Y83.8 Other surgical procedures as the cause of abnormal reaction of the patient, or of later complication, without mention of misadventure at the time of the procedure
CPT/HCPCS: 36415; 74177; 80053; 81001; 85025; 87086; 99284; C1751; J7040; Q9967

== ENCOUNTER 2024-11-14 08:23 | Inpatient (IN) | payer MEDICARE, SELFPAY ==
--- NOTE | ~2024-11-14 | CT_ITS ---
EXAMINATION: CT brain wo clint, 11/14/2024 8:42 CDT HISTORY: Aggression, AMS COMPARISON: No comparisons available. Technique: Axial images obtained of the brain without contrast. One or more of the following dose reduction techniques were used: automated exposure control, adjustment of the mA and/or kV according to patient size, use of iterative reconstruction technique. Findings: No acute infarct or parenchymal hemorrhage. Remote bilateral basal ganglion lacunar infarcts No abnormal mass or mass effect. No midline shift. No extra-axial fluid collections. No hydrocephalus. Mastoid air cells unremarkable. Sinuses and orbits unremarkable. No acute fracture. No significant facial or scalp soft tissue swelling evident. No radiopaque foreign body is seen. Impression: 1.No acute intracranial abnormality. Reviewed, dictated and finalized at location A. Impression: 1.No acute intracranial abnormality.
--- OUTSIDE RECORDS SUMMARY | 2024-11-14 08:39 | XMS_ITS | Encounter Summary ---
Author Organization [facility] Address [address] [place] [address] Phone Care Team Providers Care Infection Control Specialist Name Role Phone Jonah Cook MD Primary Care Provider [phone] Margarita Jaimes MD Unavailable [phone] Jeevan Gibson MD PhD Unavailable [phone] Olu Reis MD Unavailable [phone] Brant Rodriguez DPM Unavailable + [phone] Cathi Freeman MD Unavailable Cesar Morris MD Primary Care Provider [phone]- [phone] Serjio Pierre MD Primary Care Provider [phone]- [phone] Chris Gentile MD Primary Care Provider [phone] Unknown, Notinfile Primary Care Provider Unavail able Tiana Hilario NP Primary Care Provider [phone] Encounter Details Date Type Department Care Team (Late st Contact Info) Description 10/14/2013 Orders Only [facility] Provider, MD Preston [facility] [place] [address] Social History Tobacco Use Types Packs/Day Years Used Date Smoking Tobacco: Never Alcohol Use Standard Drinks/Week Comments Yes 0 (1 standard drink = 0.6 oz pur e alcohol) Sex and Gender Information Value Date Recorded Sex Assigned at Male 05/11/2018 9:16 AM FREIGHT MANAGER Legal Sex Male 1:34 AM FREIGHT MANAGER Gender Identity Not on file Sexual Orientation Straight 05/11/2018 9: 16 AM FREIGHT MANAGER documented as of this encounter Plan [...] Indicated Resolved Time 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 - Adama ANDERSON, RN 09/17/24 Contact 09/10/2021 10/19/2023 RSV, droplet 02/28/2023 02/28/2023 03/14/2023 3:05 AM FREIGHT MANAGER COVID: Suspected 03/19/2023 03/19/2023 03/19/2023 9:02 AM FREIGHT MANAGER COVID: Suspected 07/08/2023 07/08/2023 07/08/2023 10:20 PM CDT documented as of this encounter Care Teams Infection Control Specialist Relationship Specialty Start Date End Date Jonah Cook MD [address] [facility] [address] [place] [address] PCP - General 01/31/10 02/18/22 Cesar Morris MD [address] [place] [address] PCP - General Internal Medicine 02/19/22 04/03/23 Serjio Pierre MD [address] [place] [address] PCP - General Internal Medicine 04/04/23 05/18/23 Chris Gentile MD [address] [facility] [address] [place] [address] PCP - General Geriatric Medicine 09/03/23 10/09/23 Unknown, Notinfile PCP - General 10/19/23 01/11/24 Tiana Hilario NP [address] [facility] [address] [place] [address] PCP - General Geriatric Medicine 01/12/24 Margarita Jaimes MD [address] [address] Referring Physician Endocrinology Diabetes & Metabolism 08/30/19 Jeevan Gibson MD PhD [address] [address] Referring Physician Cardiology 02/22/20 Olu Reis MD [address] [address] Referring Physician Cardiology 02/22/20 Brant Rodriguez DPM [address] [address] Referring Physician Podiatry 02/22/20 Cathi Freeman MD [address] [facility] [id number] [place] [address] Referring Physician Geriatric Medicine 10/09/20 documented as of this encounter
--- OUTSIDE RECORDS SUMMARY | 2024-11-14 08:39 | XMS_ITS | Encounter Summary ---
Author Organization [facility] Address [address] [place] [address] Phone Care Team Providers Care Registered Radiation Therapist Name Role Phone Jonah Cook MD Primary Care Provider [phone] Margarita Jaimes MD Unavailable [phone] Jeevan Gibson MD PhD Unavailable [phone] Olu Reis MD Unavailable [phone] Brant Rodriguez DPM Unavailable + [phone] Cathi Freeman MD Unavailable Cesar Morris MD Primary Care Provider [phone] Serjio Pierre MD Primary Care Provider [phone]- [phone] Chris Gentile MD Primary Care Provider [phone] Unknown, Notinfile Primary Care Provider Unavail able Tiana Hilario NP Primary Care Provider [phone] Encounter Details Date Type Department Care Team (Late st Contact Info) Description 05/24/2013 Orders Only [facility] Provider, MD Preston [facility] [place] [address] Social History Tobacco Use Types Packs/Day Years Used Date Smoking Tobacco: Never Alcohol Use Standard Drinks/Week Comments Yes 0 (1 standard drink = 0.6 oz pur e alcohol) Sex and Gender Information Value Date Recorded Sex Assigned at Male 05/11/2018 9:16 AM NUCLEAR OPERATOR Legal Sex Male 1:34 AM NUCLEAR OPERATOR Gender Identity Not on file Sexual Orientation Straight 05/11/2018 9: 16 AM NUCLEAR OPERATOR documented as of this encounter Plan [...] RSV, droplet 02/28/2023 02/28/2023 03/14/2023 3:05 AM NUCLEAR OPERATOR COVID: Suspected 03/19/2023 03/19/2023 03/19/2023 9:02 AM NUCLEAR OPERATOR COVID: Suspected 07/08/2023 07/08/2023 07/08/2023 10:20 PM CDT documented as of this encounter Care Teams Registered Radiation Therapist Relationship Specialty Start Date End Date Jonah Cook MD [address] [facility] [address] [place] [address] PCP - General 01/31/10 02/18/22 Cesar Morris MD [address] [place] [address] PCP - General Internal Medicine 02/19/22 04/03/23 Serjio Pierre MD [address] [place] [address] PCP - General Internal Medicine 04/04/23 05/18/23 Chris Gentile MD [address] [facility] [address] [place] [address] PCP - General Geriatric Medicine 09/03/23 10/09/23 Unknown, Notinfile PCP - General 10/19/23 01/11/24 Tiana Hilario NP [address] [facility] [address] [place] [address] PCP - General Geriatric Medicine 01/12/24 Margarita Jaimes MD [address] [address] Referring Physician Endocrinology Diabetes & Metabolism 08/30/19 Jeevan Gibson MD PhD [address] [address] Referring Physician Cardiology 02/22/20 Olu Reis MD [address] [address] Referring Physician Cardiology 02/22/20 Brant Rodriguez DPM [address] [address] Referring Physician Podiatry 02/22/20 Cathi Freeman MD [address] [facility] [phone] [place] [address] Referring Physician Geriatric Medicine 10/09/20 documented as of this encounter
--- OUTSIDE RECORDS SUMMARY | 2024-11-14 08:39 | XMS_ITS | Encounter Summary ---
Author Organization [facility] Address [address] [place] [address] Phone Care Team Providers Care Log Truck Driver Name Role Phone Jonah Cook MD Primary Care Provider [phone] Margarita Jaimes MD Unavailable [phone] Jeevan Gibson MD PhD Unavailable [phone] Olu Reis MD Unavailable [phone] Brant Rodriguez DPM Unavailable + [phone] Cathi Freeman MD Unavailable Cesar Morris MD Primary Care Provider [phone]- [phone] Serjio Pierre MD Primary Care Provider [phone]- [phone] Chris Gentile MD Primary Care Provider [phone] Unknown, Notinfile Primary Care Provider Unavail able Tiana Hilario NP Primary Care Provider [phone] Encounter Details Date Type Department Care Team (Late st Contact Info) Description 04/18/2014 Orders Only [facility] Provider, MD Preston [facility] [place] [address] Social History Tobacco Use Types Packs/Day Years Used Date Smoking Tobacco: Never Alcohol Use Standard Drinks/Week Comments Yes 0 (1 standard drink = 0.6 oz pur e alcohol) Sex and Gender Information Value Date Recorded Sex Assigned at Male 05/11/2018 9:16 AM UNDER WATER ASSISTANT Legal Sex Male 1:34 AM UNDER WATER ASSISTANT Gender Identity Not on file Sexual Orientation Straight 05/11/2018 9: 16 AM UNDER WATER ASSISTANT documented as of this encounter Plan of [...] RSV, droplet 02/28/2023 02/28/2023 03/14/2023 3:05 AM UNDER WATER ASSISTANT COVID: Suspected 03/19/2023 03/19/2023 03/19/2023 9:02 AM UNDER WATER ASSISTANT COVID: Suspected 07/08/2023 07/08/2023 07/08/2023 10:20 PM CDT documented as of this encounter Care Teams Log Truck Driver Relationship Specialty Start Date End Date Jonah Cook MD [address] [facility] [address] [place] [address] PCP - General 01/31/10 02/18/22 Cesar Morris MD [address] [place] [address] PCP - General Internal Medicine 02/19/22 04/03/23 Serjio Pierre MD [address] [place] [address] PCP - General Internal Medicine 04/04/23 05/18/23 Chris Gentile MD [address] [facility] [address] [place] [address] PCP - General Geriatric Medicine 09/03/23 10/09/23 Unknown, Notinfile PCP - General 10/19/23 01/11/24 Tiana Hilario NP [address] [facility] [address] [place] [address] PCP - General Geriatric Medicine 01/12/24 Margarita Jaimes MD [address] [address] Referring Physician Endocrinology Diabetes & Metabolism 08/30/19 Jeevan Gibson MD PhD [address] [address] Referring Physician Cardiology 02/22/20 lOu Reis MD [address] [address] Referring Physician Cardiology 02/22/20 Brant Rodriguez DPM [address] [address] Referring Physician Podiatry 02/22/20 Cathi Freeman MD [address] [facility] [phone] [place] [address] Referring Physician Geriatric Medicine 10/09/20 documented as of this encounter
--- OUTSIDE RECORDS SUMMARY | 2024-11-14 08:39 | XMS_ITS | Encounter Summary ---
Author Organization [facility] Address [address] [place] [address] Phone Care Team Providers Care Registered Nurse Midwife Name Role Phone Jonah Cook MD Primary Care Provider [phone] Margarita Jaimes MD Unavailable +[phone] Jeevan Gibson MD PhD Unavailable [phone] Olu Reis MD Unavailable +[phone] Brant Rodriguez DPM Unavailable + [phone] Cathi Freeman MD Unavailable Cesar Morris MD Primary Care Provider [phone] Serjio Pierre MD Primary Care Provider +- [phone] Chris Gentile MD Primary Care Provider + [phone] Unknown, Notinfile Primary Care Provider Unavail able Tiana Hilario NP Primary Care Provider [phone] Encounter Details Date Type Department Care Team (Late st Contact Info) Description 04/27/2012 Orders Only [facility] ProviderPreston MD [address] [place] [address] Social History Tobacco Use Types Packs/Day Years Used Date Smoking Tobacco: Never Assessed Sex and Gender Information Value Date Recorded Sex Assigned at Male 05/11/2018 9:16 AM TECHNICAL PROJECT MANAGER Legal Sex Male 1:34 AM TECHNICAL PROJECT MANAGER Gender Identity Not on file Sexual Orientation Straight 05/11/2018 9: 16 AM TECHNICAL PROJECT MANAGER documented as of this encounter [...] RSV, droplet 02/28/2023 02/28/2023 03/14/2023 3:05 AM TECHNICAL PROJECT MANAGER COVID: Suspected 03/19/2023 03/19/2023 03/19/2023 9:02 AM TECHNICAL PROJECT MANAGER COVID: Suspected 07/08/2023 07/08/2023 07/08/2023 10:20 PM CDT documented as of this encounter Care Teams Registered Nurse Midwife Relationship Specialty Start Date End Date Jonah Cook MD [address] [facility] [address], [place] [address] PCP - General 01/31/10 02/18/22 Cesar Morris MD [address] [place] [address] PCP - General Internal Medicine 02/19/22 04/03/23 Serjio Pierre MD [address] [place] [address] PCP - General Internal Medicine 04/04/23 05/18/23 Chris Gentile MD [address] [facility] [address] [place] [address] PCP - General Geriatric Medicine 09/03/23 10/09/23 Unknown, Notinfile PCP - General 10/19/23 01/11/24 Tiana Hilario, DIRECTOR [facility] [address] [facility] [address] [place] [address] PCP - General Geriatric Medicine 01/12/24 Mragarita Jaimes MD [address] [address] Referring Physician Endocrinology Diabetes & Metabolism 08/30/19 Jeevan Gibson MD PhD [address] [address] Referring Physician Cardiology 02/22/20 Olu Reis MD [address] [address] Referring Physician Cardiology 02/22/20 Brant Rodriguez DPM [address] [address] Referring Physician Podiatry 02/22/20 Cathi Freeman MD [address] [facility] [address]75[address] [place] [address] Referring Physician Geriatric Medicine 10/09/20 documented as of this encounter
--- OUTSIDE RECORDS SUMMARY | 2024-11-14 08:40 | XMS_ITS | Encounter Summary ---
Author Organization [facility] Address [address] [place] [address] Phone Care Team Providers Care Head Kiln Operator Name Role Phone Jonah Cook MD Primary Care Provider [phone] Margarita Jaimes MD Unavailable [phone] Jeevan Gibson MD PhD Unavailable [phone] Olu Reis MD Unavailable +[phone] Brant Rodriguez DPM Unavailable + [phone] Cathi Freeman MD Unavailable Cesar Morris MD Primary Care Provider +- [phone] Serjio Pierre MD Primary Care Provider +- [phone] Chris Gentile MD Primary Care Provider + [phone] Unknown, Notinfile Primary Care Provider Unavail able Tiana Hilario NP Primary Care Provider [phone] Encounter Details Date Type Department Care Team (Late st Contact Info) Description 04/16/2013 Orders Only [facility] Provider, MD Preston [facility] [place] [address] Social History Tobacco Use Types Packs/Day Years Used Date Smoking Tobacco: Never Alcohol Use Standard Drinks/Week Comments Yes 0 (1 standard drink = 0.6 oz pur e alcohol) Sex and Gender Information Value Date Recorded Sex Assigned at Male 05/11/2018 9:16 AM WATCH DIAL PRINTER Legal Sex Male 1:34 AM WATCH DIAL PRINTER Gender Identity Not on file Sexual Orientation Straight 05/11/2018 9: 16 AM WATCH DIAL PRINTER documented as of this encounter Plan of [...] RSV, droplet 02/28/2023 02/28/2023 03/14/2023 3:05 AM WATCH DIAL PRINTER COVID: Suspected 03/19/2023 03/19/2023 03/19/2023 9:02 AM WATCH DIAL PRINTER COVID: Suspected 07/08/2023 07/08/2023 07/08/2023 10:20 PM CDT documented as of this encounter Care Teams Head Kiln Operator Relationship Specialty Start Date End Date Jonah Cook MD [address] [facility] [address] [place] [address] PCP - General 01/31/10 02/18/22 Cesar Morris MD [address] [place] [address] PCP - General Internal Medicine 02/19/22 04/03/23 Serjio Pierre MD [address] [place] [address] PCP - General Internal Medicine 04/04/23 05/18/23 Chris Gentile MD [address] [facility] [address] [place] [address] PCP - General Geriatric Medicine 09/03/23 10/09/23 Unknown, Notinfile PCP - General 10/19/23 01/11/24 Tiana Hilario NP [address] [facility] [address] [place] [address] PCP - General Geriatric Medicine 01/12/24 Margarita Jaimes MD [address] [address] Referring Physician Endocrinology Diabetes & Metabolism 08/30/19 Jeevan Gibson MD PhD [address] [address] Referring Physician Cardiology 02/22/20 Olu Reis MD [address] [address] Referring Physician Cardiology 02/22/20 Brant Rodriguez DPM [address] [address] Referring Physician Podiatry 02/22/20 Cathi Freeman MD [address] [facility] [address]75[address] [place] [address] Referring Physician Geriatric Medicine 10/09/20 documented as of this encounter
--- OUTSIDE RECORDS SUMMARY | 2024-11-14 08:40 | XMS_ITS | Encounter Summary ---
Author Organization [facility] Address [address] [place] [address] Phone Care Team Providers Care Systems Development Consultant Name Role Phone Jonah Cook MD Primary Care Provider [phone] Margarita Jaimes MD Unavailable [phone] Jeevan Gibson MD PhD Unavailable [phone] Olu Reis MD Unavailable +[phone] Brant Rodriguez DPM Unavailable + [phone] Cathi Freeman MD Unavailable Cesar Morris MD Primary Care Provider +- [phone] Serjio Pierre MD Primary Care Provider +- [phone] Chris Gentile MD Primary Care Provider + [phone] Unknown, Notinfile Primary Care Provider Unavail able Tiana Hilario NP Primary Care Provider [phone] Encounter Details Date Type Department Care Team (Late st Contact Info) Description 10/16/2015 Orders Only [facility] Provider, MD Preston [place] [address] Social History Tobacco Use Types Packs/Day Years Used Date Smoking Tobacco: Never Alcohol Use Standard Drinks/Week Comments Yes 0 (1 standard drink = 0.6 oz pur e alcohol) Sex and Gender Information Value Date Recorded Sex Assigned at Male 05/11/2018 9:16 AM POLISHER DIAL Legal Sex Male 1:34 AM POLISHER DIAL Gender Identity Not on file Sexual Orientation Straight 05/11/2018 9: 16 AM POLISHER DIAL documented as of this encounter Plan of [...] RSV, droplet 02/28/2023 02/28/2023 03/14/2023 3:05 AM POLISHER DIAL COVID: Suspected 03/19/2023 03/19/2023 03/19/2023 9:02 AM POLISHER DIAL COVID: Suspected 07/08/2023 07/08/2023 07/08/2023 10:20 PM CDT documented as of this encounter Care Teams Systems Development Consultant Relationship Specialty Start Date End Date Jonah Cook MD [address] [facility] [address] [place] [address] PCP - General 01/31/10 02/18/22 Cesar Morris MD [address] [place] [address] PCP - General Internal Medicine 02/19/22 04/03/23 Serjio Pierre MD [address] [place] [address] PCP - General Internal Medicine 04/04/23 05/18/23 Chris Gentile MD [address] [facility] [address] [place] [address] PCP - General Geriatric Medicine 09/03/23 10/09/23 Unknown, Notinfile PCP - General 10/19/23 01/11/24 Tiana Hilario NP [address] [facility] [address] [place] [address] PCP - General Geriatric Medicine 01/12/24 Margarita Jaimes MD [address] [address] Referring Physician Endocrinology Diabetes & Metabolism 08/30/19 Jeevan Gibson MD PhD [address] [address] Referring Physician Cardiology 02/22/20 Olu Reis MD [address] [address] Referring Physician Cardiology 02/22/20 Brant Rodriguez DPM [address] [address] Referring Physician Podiatry 02/22/20 Cathi Freeman MD [address] [facility] [phone] [place] [address] Referring Physician Geriatric Medicine 10/09/20 documented as of this encounter
--- OUTSIDE RECORDS SUMMARY | 2024-11-14 08:40 | XMS_ITS ---
Author Organization [facility] Address [address] [facility] [place] [address] Care Team Providers Care Hat Blocker Name Role Phone Margarita Jaimes MD Unavailable +[phone] Jeevan Gibson MD PhD Unavailable [phone] Olu Reis MD Unavailable +[phone] Brant RodriguezM Unavailable +- [phone] Cathi Freeman MD Unavailable Tiana Hilario NP Primary Care Provider [phone] Active Problems Problem Noted Date Diagnosed Date Palliative care by specialist 07/10/2023 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 Dr. Dickens does recommend terminologist helton but patient is resistant at this [...] . Assessment & Plan (04/29/2022 12:59 PM [employer]): -Has had 1 confirmed, possibly 2-3 other [...] apixaban Assessment & Plan (05/17/2021 10:47 AM [employer]): Assessment/plan: Continue ASA and statin therapy. Bilateral [...] lispro. Assessment & Plan (05/17/2021 10:46 AM [employer]): Assessment/plan: Insulin strict glucose control Assessment & [...] 0 11/03/2017 Basal cell carcinoma (BCC) of zoroastrianism region 10/2017 Basal cell carcinoma (BCC) of [...] supplement Assessment & Plan (02/23/2020 10:37 AM [employer]): Continue daily supplement Assessment & Plan (09/01/2019 8:28 AM CDT): Continue supplement Assessment & Plan (01/19/2019 1:00 PM [employer]): Continue supplement, recheck labs Assessment & Plan (07/03/2018 9:35 AM CDT): Continue supplement History of fall 06/20/2015 Assessment & Plan (08/15/2023 1:04 PM CDT): Patient did slip from bed 08/12 & has been complaining of L rib pain since. Will obtain XR to ro. He does report better but asking for XR. Assessment & Plan (05/19/2020 5:35 AM [employer]): Patient has a history of falls and [...] have this information as she meets w [facility] for future planning. Cont rx lexapro [...] regimen. Assessment & Plan (04/27/2019 12:44 PM [employer]): Hypertension is controlled. Continue current regimen. Assessment [...] Automatic Entry Manual Entr y Fluoro Time 87.678 minutes 61.778 minutes 25.9 minute s Air kerma at the reference point (Ka,r) 2,939.55 mGy 2 ,387.55 mGy 552 mGy DLP 3,311 mGycm 3,311 mGycm 0 mGycm DAP 117 Gy-cm2 0 Gy-cm2 117 Gy-cm2 Resolved Problems Problem Noted Date Diagnosed Date [...] & helton 09/11. Urology is not wanting detention helton but patient is not. Will discuss [...] 02/23/2023 Assessment & Plan (05/17/2021 10:51 AM [employer]): Assessment/plan: Pressure ulceration the lateral ankles likely from his bed. Continue local wound care with Betadine paint and offloading. Eventually he will likely need an MRI to rule out osteomyelitis. Cognitive communication deficit 03/09/2021 07/31/2023 Myalgia 04/27/2019 02/23/2023 Dermatitis 04/27/2019 02/23/2023 Assessment & Plan (04/27/2019 1:50 PM [employer]): No evidence of cellulitis. Moisturize with vaseline. Use OTC cortisone OTC. Acute cystitis 01/20/2019 07/31/2023 Low back pain 01/19/2019 09/22/2023 Assessment & Plan (01/19/2019 1:19 PM [employer]): Will check urinalysis with reflex to culture [...] time Assessment & Plan (02/23/2020 10:38 AM [employer]): Glucoses a little high, but he has [...] labs Assessment & Plan (01/19/2019 1:00 PM [employer]): Glucoses within a good margin of safety, but a little high so he would benefit from a little more basal insulin Assessment & Plan (07/03/2018 9:35 AM CDT): Mild hyperglycemia, but maintaining a good margin of safety. I would not change therapy at this time Muscle weakness of lower extremity 03/20/2016 02/23/2023 Vascular dementia 06/20/2015 02/23/2023 Assessment & Plan (05/19/2020 5:38 AM [employer]): Patient may experience some deficits with stress or electrolyte disturbances as was with his left leaning episodes. Will continue to monitor and emphasize safety to family. Assessment & Plan (02/23/2020 10:37 AM [employer]): He is supported by his . Need to minimize risk of hypoglycemia Dysphagia 06/30/2014 09/08/2023 Assessment & Plan (05/19/2020 5:36 AM [employer]): Patient is having chocking episodes and the [...] trazodone. Assessment & Plan (05/19/2020 5:31 AM [employer]): As the patient continues to have functional [...] FIBRILLATION Assessment & Plan (05/17/2021 10:46 AM [employer]): Assessment/plan: Metoprolol Assessment & Plan (04/27/2019 12:44 PM [employer]): Continue rate control. Continue anticoagualtion. Assessment & Plan (12/04/2018 1:38 PM CDT): Continue metoprolol. S/p pacemaker. Assessment & Plan (11/26/2017 7:05 AM CDT): Continue rate control. Continue anticoagualtion. 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 -PVR today was 13 mL. [...]
--- OUTSIDE RECORDS SUMMARY | 2024-11-14 08:40 | XMS_ITS | Encounter Summary ---
Author Organization [facility] Address [address] [place] [address] Phone Care Team Providers Care Mechanist Name Role Phone Jonah Cook MD Primary Care Provider [phone] Margarita Jaimes MD Unavailable [phone] Jeevan Gibson MD PhD Unavailable [phone] Olu Reis MD Unavailable +[phone] Brant Rodriguez DPM Unavailable + [phone] Cathi Freeman MD Unavailable Cesar Morris MD Primary Care Provider [phone] Serjio Pierre MD Primary Care Provider +- [phone] Chris Gentile MD Primary Care Provider + [phone] Unknown, Notinfile Primary Care Provider Unavail able Tiana Hilario NP Primary Care Provider [phone] Encounter Details Date Type Department Care Team (Late st Contact Info) Description 05/23/2015 Orders Only [facility] Provider, MD Preston [facility] [place] [address] Social History Tobacco Use Types Packs/Day Years Used Date Smoking Tobacco: Never Alcohol Use Standard Drinks/Week Comments Yes 0 (1 standard drink = 0.6 oz pur e alcohol) Sex and Gender Information Value Date Recorded Sex Assigned at Male 05/11/2018 9:16 AM SECURITY RESEARCHER Legal Sex Male 1:34 AM SECURITY RESEARCHER Gender Identity Not on file Sexual Orientation Straight 05/11/2018 9: 16 AM SECURITY RESEARCHER documented as of this encounter Plan of [...] RSV, droplet 02/28/2023 02/28/2023 03/14/2023 3:05 AM SECURITY RESEARCHER COVID: Suspected 03/19/2023 03/19/2023 03/19/2023 9:02 AM SECURITY RESEARCHER COVID: Suspected 07/08/2023 07/08/2023 07/08/2023 10:20 PM CDT documented as of this encounter Care Teams Mechanist Relationship Specialty Start Date End Date Jonah Cook MD [address] [facility] [address] [place] [address] PCP - General 01/31/10 02/18/22 Cesar Morris MD [address] [place] [address] PCP - General Internal Medicine 02/19/22 04/03/23 Serjio Pierre MD [address] [place] [address] PCP - General Internal Medicine 04/04/23 05/18/23 Chris Gentile MD [address] [facility] [address] [place] [address] PCP - General Geriatric Medicine 09/03/23 10/09/23 Unknown, Notinfile PCP - General 10/19/23 01/11/24 Tiana Hilario NP [address] [facility] [address] [place] [address] PCP - General Geriatric Medicine 01/12/24 Margarita Jaimes MD [address] [address] Referring Physician Endocrinology Diabetes & Metabolism 08/30/19 Jeevan Gibson MD PhD [address] [address] Referring Physician Cardiology 02/22/20 Olu Reis MD [address] [address] Referring Physician Cardiology 02/22/20 Brant Rodriguez DPM [address] [address] Referring Physician Podiatry 02/22/20 Cathi Freeman MD [address] [facility] 90-75-555 [place] [address] Referring Physician Geriatric Medicine 10/09/20 documented as of this encounter
--- OUTSIDE RECORDS SUMMARY | 2024-11-14 08:40 | XMS_ITS | Encounter Summary ---
Author Organization [facility] Address [address] [place] [address] Phone Care Team Providers Care Pediatric Audiologist Name Role Phone Jonah Cook MD Primary Care Provider [phone] Margarita Jaimes MD Unavailable [phone] Jeevan Gibson MD PhD Unavailable [phone] Olu Reis MD Unavailable +[phone] Brant Rodriguez DPM Unavailable + [phone] Cathi Freeman MD Unavailable Cesar Morris MD Primary Care Provider +- [phone] Serjio Pierre MD Primary Care Provider +- [phone] Chris Gentile MD Primary Care Provider + [phone] Unknown, Notinfile Primary Care Provider Unavail able Tiana Hilario NP Primary Care Provider [phone] Encounter Details Date Type Department Care Team (Late st Contact Info) Description 10/10/2014 Orders Only [facility] Provider, MD Preston [facility] [place] [address] Social History Tobacco Use Types Packs/Day Years Used Date Smoking Tobacco: Never Alcohol Use Standard Drinks/Week Comments Yes 0 (1 standard drink = 0.6 oz pur e alcohol) Sex and Gender Information Value Date Recorded Sex Assigned at Male 05/11/2018 9:16 AM RAILROAD FIRER Legal Sex Male 1:34 AM RAILROAD FIRER Gender Identity Not on file Sexual Orientation Straight 05/11/2018 9: 16 AM RAILROAD FIRER documented as of this encounter Plan of [...] RSV, droplet 02/28/2023 02/28/2023 03/14/2023 3:05 AM RAILROAD FIRER COVID: Suspected 03/19/2023 03/19/2023 03/19/2023 9:02 AM RAILROAD FIRER COVID: Suspected 07/08/2023 07/08/2023 07/08/2023 10:20 PM CDT documented as of this encounter Care Teams Pediatric Audiologist Relationship Specialty Start Date End Date Jonah Cook MD [address] [facility] [address] [place] [address] PCP - General 01/31/10 02/18/22 Cesar Morris MD [address] [place] [address] PCP - General Internal Medicine 02/19/22 04/03/23 Serjio Pierre MD [address] [place] [address] PCP - General Internal Medicine 04/04/23 05/18/23 Chris Gentile MD [address] [facility] [address] [place] [address] PCP - General Geriatric Medicine 09/03/23 10/09/23 Unknown, Notinfile PCP - General 10/19/23 01/11/24 Tiana Hilario NP [address] [facility] [address] [place] [address] PCP - General Geriatric Medicine 01/12/24 Margarita Jaimes MD [address] [address] Referring Physician Endocrinology Diabetes & Metabolism 08/30/19 Jeevan Gibson MD PhD [address] [address] Referring Physician Cardiology 02/22/20 Olu Reis MD [address] [address] Referring Physician Cardiology 02/22/20 Brant Rodriguez DPM [address] [address] Referring Physician Podiatry 02/22/20 Cathi Freeman MD [address] [facility] [phone] [place] [address] Referring Physician Geriatric Medicine 10/09/20 documented as of this encounter
--- OUTSIDE RECORDS SUMMARY | 2024-11-14 08:40 | XMS_ITS | Clinical Summary ---
Author Organization [facility] [place] nsion Address [address] [place] [address] Care Team Providers Care Machine Helper Name Role Phone Margarita Jaimes MD Unavailable [phone] Jeevan Gibson MD PhD Unavailable [phone] Olu Reis MD Unavailable [phone] Brant RodriguezM Unavailable [phone] Cathi Freeman MD Unavailable Tiana Hilario NP Primary Care Provider [phone] Allergies Active Allergy Reactions Criticality Noted Date [...] (50 mg total) by mouth nightly [place] [facility] [place] Active docusate sodium (COLACE) 100 [...] extended release tabletIndications:Ca rdiac resynchronization therapy pacemaker (CHAIR MENDER-P) in place,PVC's (premature ventricular contractions),Perman ent atrial fibrillation (HCC) Take 1 tablet (25 mg total) by mouth daily 90 tablet 3 01/20/20 24 025 Active Active Problems Problem Noted Date Diagnosed Date Palliative care by specialist 07/10/2023 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 Dr. Dickens does recommend [facility] [place] but patient is resistant at this [...] . Assessment & Plan (04/29/2022 12:59 PM FILM REPLACEMENT ORDERER): -Has had 1 confirmed, possibly 2-3 other [...] apixaban Assessment & Plan (05/17/2021 10:47 AM FILM REPLACEMENT ORDERER): Assessment/plan: Continue ASA and statin therapy. Bilateral [...] lispro. Assessment & Plan (05/17/2021 10:46 AM FILM REPLACEMENT ORDERER): Assessment/plan: Insulin strict glucose control Assessment & [...] 0 11/03/2017 Basal cell carcinoma (BCC) of mormonism region 10/2017 Basal cell carcinoma (BCC) of [...] supplement Assessment & Plan (02/23/2020 10:37 AM FILM REPLACEMENT ORDERER): Continue daily supplement Assessment & Plan (09/01/2019 8:28 AM CDT): Continue supplement Assessment & Plan (01/19/2019 1:00 PM FILM REPLACEMENT ORDERER): Continue supplement, recheck labs Assessment & Plan (07/03/2018 9:35 AM CDT): Continue supplement History of fall 06/20/2015 Assessment & Plan (08/15/2023 1:04 PM CDT): Patient did slip from bed 6 & has been complaining of L rib pain since. Will obtain XR to ro. He does report better but asking for XR. Assessment & Plan (05/19/2020 5:35 AM FILM REPLACEMENT ORDERER): Patient has a history of falls and [...] have this information as she meets w [facility] for future planning. Cont rx lexapro [...] regimen. Assessment & Plan (04/27/2019 12:44 PM FILM REPLACEMENT ORDERER): Hypertension is controlled. Continue current regimen. Assessment [...] & helton 09/11. Urology is not wanting exterminator helper helton but patient is not. Will [...] 02/23/2023 Assessment & Plan (05/17/2021 10:51 AM FILM REPLACEMENT ORDERER): Assessment/plan: Pressure ulceration the lateral ankles likely from his bed. Continue local wound care with Betadine paint and offloading. Eventually he will likely need an MRI to rule out osteomyelitis. Cognitive communication deficit 03/09/2021 07/31/2023 Myalgia 04/27/2019 02/23/2023 Dermatitis 04/27/2019 02/23/2023 Assessment & Plan (04/27/2019 1:50 PM FILM REPLACEMENT ORDERER): No evidence of cellulitis. Moisturize with vaseline. Use OTC cortisone OTC. Acute cystitis 01/20/2019 07/31/2023 Low back pain 01/19/2019 09/22/2023 Assessment & Plan (01/19/2019 1:19 PM FILM REPLACEMENT ORDERER): Will check urinalysis with reflex to culture [...] time Assessment & Plan (02/23/2020 10:38 AM FILM REPLACEMENT ORDERER): Glucoses a little high, but he has [...] labs Assessment & Plan (01/19/2019 1:00 PM FILM REPLACEMENT ORDERER): Glucoses within a good margin of safety, but a little high so he would benefit from a little more basal insulin Assessment & Plan (07/03/2018 9:35 AM CDT): Mild hyperglycemia, but maintaining a good margin of safety. I would not change therapy at this time Muscle weakness of lower extremity 03/20/2016 02/23/2023 Vascular dementia 06/20/2015 02/23/2023 Assessment & Plan (05/19/2020 5:38 AM FILM REPLACEMENT ORDERER): Patient may experience some deficits with stress or electrolyte disturbances as was with his left leaning episodes. Will continue to monitor and emphasize safety to family. Assessment & Plan (02/23/2020 10:37 AM FILM REPLACEMENT ORDERER): He is supported by his . Need to minimize risk of hypoglycemia Dysphagia 06/30/2014 09/08/2023 Assessment & Plan (05/19/2020 5:36 AM FILM REPLACEMENT ORDERER): Patient is having chocking episodes and the [...] trazodone. Assessment & Plan (05/19/2020 5:31 AM FILM REPLACEMENT ORDERER): As the patient continues to have functional [...] FIBRILLATION Assessment & Plan (05/17/2021 10:46 AM FILM REPLACEMENT ORDERER): Assessment/plan: Metoprolol Assessment & Plan (04/27/2019 12:44 PM FILM REPLACEMENT ORDERER): Continue rate control. Continue anticoagualtion. Assessment & Plan (12/04/2018 1:38 PM CDT): Continue metoprolol. S/p pacemaker. Assessment & Plan (11/26/2017 7:05 AM CDT): Continue rate control. Continue anticoagualtion. Diabetic hypoglycemia 03/26/20132022 Pacemaker at end of battery life 10/27/2012 07/31/2023 Skin callus 05/04/2012 09/29/2023 Onychomycosis due to dermatophyte 05/04/2012 02/23/2023 BPH with obstruction/lower u rinary tract symptoms 02/23/2023 Assessment & Plan (04/29/2022 12:57 PM FILM REPLACEMENT ORDERER): -On flomax. -PVR today was 13 mL. [...] Encounters Date Type Department Care Team Description 10/06/2024 Home Care Visit [address] [place] [address] Eber Hoyos, RN CASE COMMUNICATION 10/05/2024 2:00 PM CDT Home Care Visit [address] [place] [address] Brianne Siegel MSW [facility] INFORMATIONAL VISIT 09/14/2024 Telephone [facility] Radiology [address] [place] [address] Franci Luciano, ROLF from Last 3 Months Immunizations Immunization Administration [...] CARDIAC PACEMAKER PLACEMENT Cardiac pacemaker TONSILLECTOMY Tonsillectomy MT THERAPEUTIC SPINAL PUNCTU RE DRAINAGE CSF Spinal [...] TW Conv) Hypertension CHF (congestive heart failure) ([facility]) GERD (gastroesophageal reflux disease) 2021 Benign prostatic hyperplasia 2006 Diabetes mellitus ([facility]) 2004 Type 2 diabetes mellitus Peripheral neuropathy From knees to feet on both legs Dependent on wheelchair Incontinent of urine and stool w ears depends Dementia ([facility]) Wound, open, buttock 2023 WOUNDS NOTED IN [...] - (Added by TW Conv) Cancer Sister TREE FARMER Cancer - (Added by TW Conv) Relation Name Status Comments Brother 1 Edson Brother 2 Brother 3 Jasbir Father Agnellus Mother Alive Other 1 Other 2 Sister TREE FARMER Social History Tobacco Use Types Packs/Day Years Used Date Smoking Tobacco: Never Smokeless Tobacco: Never Tobacco Cessation:Counseling Given: Not Answered Alcohol Use Standard Drinks/Week Comments Not Currently 0 (1 standard drink = 0.6 oz pur e alcohol) [facility] Utilities Answer Date Recorded In the past 12 months has e electric, gas, oil, or water company threatened to shut off services in your home? No 07/09/2023 Social Connection and Isolation Panel Answer Date Recorded In a typical week, how many times do you talk on the phone with family, friends, or neighbors? Three times a week 07/09/2023 How often do you get togethe r with friends or relatives? Three times a week 07/09/2023 How often do you attend chur ch or scientologist services? Never 07/09/2023 Do you belong to any clubs o r organizations such as yazidism groups, unions, fraternal or athletic groups, or [...] place to sleep or slept in a skilled nursing (including now)? No 07/09/2023 Personal Safety Answer Date Recorded Have you ever been in or are you currently in a harmful physical or emotional relationship or is someone making you feel afraid or unsafe? Denies 01/12/2024 Sex and Gender Information Value Date Recorded Sex Assigned at Male 05/11/2018 9:16 AM FILM REPLACEMENT ORDERER Legal Sex Male 1:34 AM FILM REPLACEMENT ORDERER Gender Identity Not on file Sexual Orientation Straight 05/11/2018 9: 16 AM FILM REPLACEMENT ORDERER Obstetrics History Last Filed Vital Signs Vital Sign Reading Time Taken Comments Blood Pressure 104/60 01/20/2024 12:35 PM FILM REPLACEMENT ORDERER Pulse 64 01/20/2024 12:35 PM FILM REPLACEMENT ORDERER Temperature 36 C (96.8 F) 01/12/2024 1:05 PM FILM REPLACEMENT ORDERER Respiratory Rate 14 01/12/2024 2:10 PM FILM REPLACEMENT ORDERER Oxygen Saturation 99% 01/20/2024 12:35 PM FILM REPLACEMENT ORDERER Inhaled Oxygen Concentration - - Weight 108 kg (238 lb) 02/17/2024 11:07 AM FILM REPLACEMENT ORDERER Height 190.5 cm (6' 3) 02/17/2024 11:07 AM FILM REPLACEMENT ORDERER Body Mass Index 29.75 02/17/2024 11:07 AM FILM REPLACEMENT ORDERER Plan of Treatment Health Maintenance Due Date [...] 06/08/2024 06/09/2023, 11/2022, 01/15/2023, Additional history exists Covid-19 Vaccine (2 - 2024-2 6 season) 2024 06/25/2021 Influenza Vaccine (#1) 2024 , 12/29/2019, 12/04/2018, Additional history exists Fall Risk Assessment 01/11/2025 01/12/2024, 07/04/2020, 12/04/2018, Additional history exists eGFR 01/11/2025 01/12/2024, 10/08, 09/08/2023, Additional history exists DTaP/Tdap/Td Vaccine (2 - Td or Tdap) 03/07/2031 03/07/2021 Pneumococcal vaccine 65+ Completed 022, 07/17/2015, 11/15/2010 Medical Devices Implanted Type Area Brick Tender Device Identifier Shelf Expiration Date Model / Serial / Lot Pacemaker Pacemaker Left: Chest Lead Pacing Acuity X4 Irox [id number] Titanium Dexamethasone Acetate 4 Cm Space L95 Cm Od3.9-5.2 Fr Odsec2.6 Fr Left Ventricular Otw Quadripolar Long Straight Taper Tip Accept .081 In Guide Catheter Is4-[id number] Implanted:Qty: 1 on 06/06/2022 by Jared Hernandez MD at [facility] Scientific Anisha [id number] 08/21/2023 [id number] / [id number] / [employer] C.R.M. Valitude X4 Latitude Nxt Hf Perspectiv Easyview 2.6fr 4.45x6.17cm U128 - [id number] - [id number] Implanted:Qty: 1 on 06/06/2022 by Jared Hernandez MD at [facility] C.R.M. [id number] 10/04/2023 [id number] / [id number] / Medtronic Inc Tyrx Absorbable Antibacterial Envelope-Large 3.3x2.9in [id number] - [id number] Implanted:Qty: 1 on 06/06/2022 by Jared Hernandez MD at [facility] Medtronic [facility] [id number] / / [employer]ast Angio-Seal Vip 6fr Closere Device [id number] - [id number] Implanted:Qty: 1 on 01/12/2024 at [facility] [employer] 05/11/2024 [id number] / / [id number] Wix Coil Embo Detach Soft Embold 3yom3ci Sterile Latex-Free [id number] - [id number] Implanted:Qty: 1 on 01/12/2024 at [facility] Wix 07/09/2026 [id number] / / [id number] [facility] [place] Reseach Embosphere Prefill Saline Syringe Compressible Nonaggregate S420gh - [id number] Implanted:Qty: 1 on 01/12/2024 at [facility] InfluAds 10/23/2026 S420GH / / [id number] Medtronic Ledzworld Coil Embolization Coated Detachable Helical Concerto 3iex13lu Nylon Gl-2-47-[place] - [id number] Implanted:Qty: 1 on 01/12/2024 at [facility] Medtronic Inc 11/07/2025 NV-4-10- HELIX / / [id number] Medtronic Inc Coil Embolization Coated Detachable Helical Concerto 4ieo6zt Nylon Eg-9-3-[place] - [id number] Implanted:Qty: 1 on 01/12/2024 at [facility] Medtronic Inc 06/16/2026 NV-4-8-H ELIX / / [id number] Explanted Type Area Brick Tender Device Identifier Shelf Expiration Date Model / Serial / Lot [id number] [id number] 6fr 22cm 145cm Radiopaque Positioner Filiform Flexible Tip - [id number] Implanted:Qty: 1 on 07/11/2023 by Dre Chu MD at [facility] Explanted:Qty: 1 on 07/25/2023 by Dre Chu MD Stent Right: Ureter [employer] [id number] 03/21/2026 [id number] / / [id number] [employer] [id number] 6fr 22cm 145cm Radiopaque Positioner Filiform Flexible Tip - [id number] Implanted:Qty: 1 on 07/25/2023 by Dre Chu MD at [facility] Explanted:08/09 by Landon Dickens MD (Quantity not on file) Right: Ureter [employer] [id number] 03/21/2026 [id number] / / [id number] Description:Removed by patie nt via string [employer] [id number] 6fr 26cm 145cm Radiopaque Positioner Filiform Flexible Tip - [id number] Implanted:Qty: 1 on 09/03/2023 by Landon Dickens MD at [facility] Explanted:Qty: 1 on 09/08/2023 Right: Kidney [employer] [id number] 04/18/2026 [id number] / / [id number] Description:Removed by patie nt at home via string Procedures Procedure Name Priority Date/Time Associated Diagnosis Comments EGFR Routine 01/12/2024 7:33 AM FILM REPLACEMENT ORDERER Atrial flutter, unspecified type (HCC) HEMOGLOBIN A1C Routine 07/09/2023 7:45 AM CDT LIPID PANEL Routine 06/09/2023 1:29 PM CDT Lipid screening ALBUMIN CREATININE RATIO, URINE Routine 02/01/2019 10:44 AM FILM REPLACEMENT ORDERER Low back pain without sciatica, unspecified back pain laterality, unspecified chronicity from Last 3 Months or Most Recently Relevant to Health Maintenance Results * eGFR (01/12/2024 7:33 AM FILM REPLACEMENT ORDERER) eGFR 62 >=60 mL/min/1. 73 m2 Comment: [...] last reviewed 2021. Blood 01/12/2024 7:33 AM FILM REPLACEMENT ORDERER 01/12/2024 8:07 AM FILM REPLACEMENT ORDERER us Alton Delaney MD LAB BLOOD ORDERABLES Final Result [facility] Department [place] [address] * (ABNORMAL) Hemoglobin A1c (07/09/2023 7:45 AM CDT) Hgb A1C 10.0(H) 4.0 - 5.6 % Estimated Average Glucose 240 mg/dL [facility]ARS Comment: The ADA recommends reporting an estimated Average Glucose (eAG) with all Hemoglobin A1c results using the equation derived from a study of 507 normal and diabetic adults. Minority populations were underrepresented and children were not included. (Diabetes Care 31:0020-6041, 2008). The eAG is not equivalent to a fasting glucose. Blood 07/09/2023 7:45 AM CDT 07/09/2023 8:15 AM CDT us Aleksey Dawn MD LAB BLOOD ORDERABLES Final Result [facility] [address] [facility] [place] [address] * Lipid panel (06/09/2023 1:29 PM CDT) [...] last revised on 2017. Chol[facility]HDL [facility] 3 [facility] Blood 06/09/2023 1:29 PM CDT 06/09/2023 1:50 PM CDT Narrative [facility] - 06/09/2023 2:27 PM CDT Has the patient been fasting for 8 hours or more?->Yes Gavino Dewey MD LAB BLOOD ORDERABLES Fi nal Result [facility] [address] [facility] Department [place] [address] * Albumin Creatinine Ratio, Urine (02/01/2019 10:44 AM FILM REPLACEMENT ORDERER) Creatinine ur 151.4 Not Estab. mg/dL [facility] - 01 Microalbumin, ur 12.6 Not Estab. ug/mL [facility] - 01 Microalbumin/cre at ratio 8.3 0.0 - 30.0 mg/g creat [facility] - 01 Comment: Normal: 0.0 - 30.0 Albuminuria: 31.0 - 300.0 Clinical albuminuria: >300.0 Urine 02/01/2019 10:4 4 AM FILM REPLACEMENT ORDERER 02/01/2019 Narrative [facility] - 02/05/2019 12:08 PM FILM REPLACEMENT ORDERER Performed at: 01 - [facility] [id number] Director Security Risk Management: Percy Aguilar PhD, Phone: [phone] us Margarita Jaimes MD LAB URINE ORDERABLES Final Result Performing Organization Address City/State/[facility] [[email or web address]] Co de Phone Number [facility] - from Last 3 Months or Most Recently Relevant to Health Maintenance Additional Health Concerns Infection Onset Date Last Indicated 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 - Adama ANDERSON RN 09/17/24 Contact 09/10/2021 10/19/2023 Insurance MEDICARE [facility] MEDICARE SUPPLEMENT MEDICARE [facility] TRADITIONAL MEDICARE [facility] MEDICARE SUPPLEMENT Advance Directives For more information, please contact: [phone] Documents on File Type Date Recorded Patient Bead Trimmer Expl anation ADVANCE DIRECTIVE 10/21/2023 1:10 PM POLST - Phys Order for PT Preferences ADVANCE DIRECTIVE 09/19/2021 4:04 PM POLST - Phys Order for PT Preferences ADVANCE DIRECTIVE 06/01/2021 3:02 PM Power of Living Skills Advisor-Medical ADVANCE DIRECTIVE 03/18/2019 3:08 PM Power of Living Skills Advisor - Medical * Full Code (Latest Code [...] 10:03 PM 04/04/2023 2:46 AM Care Teams Machine Helper Relationship Specialty Start Date End Date Tiana Hilario NP [address] [place] [address] PCP - General Geriatric Medicine 01/12/24 Margarita Jaimes MD Referring Physician Endocrinology Diabetes & Metabolism 08/30/19 Jeevan Gibson MD PhD Referring Physician Cardiology 02/22/20 Olu Reis MD Referring Physician Cardiology 02/22/20 Brant Rodriguez DPM Referring Physician Podiatry 02/22/20 Cathi Freeman MD [address] [facility] [phone] [place] [address] Referring Physician Geriatric Medicine 10/09/20
[2024-11-14 08:44] VITALS: BP 114/68; PULSE 72; RESP 16; TEMP 36.6; O2SAT 98
--- NOTE | 2024-11-14 08:48 | ED.GENADULT ---
HPI - General Adult General Chief complaint: Urogenital-Male Stated complaint: psych Time Seen by Provider: 11/14/24 08:33 History of Present Illness HPI narrative: 84-year-old male history of dementia presented to the emergency department for evaluation for increased aggression. Patient was reportedly verbally aggressive and combative have at formerly [facility] facility. Upon to the arrival emergency department patient and smiling and well-appearing and denies any complaints. Patient denies any falls or injuries. Related Data Home Medications ?Medication ?Instructions ?Recorded ?Confirmed ?Last Taken ?Type divalproex 125 mg tablet,delayed 125 mg PO Q12H 10/29/23 11/14/24 Unknown History release (Depakote) albuterol sulfate 90 mcg/actuation 2 puff inhalation Q4H PRN 09/04/24 11/14/24 Unknown History aerosol inhaler shortness of breath apixaban 5 mg tablet (Eliquis) 5 mg PO BID 09/04/24 11/14/24 Unknown History citalopram 10 mg tablet 10 mg PO .bedtime 09/04/24 11/14/24 Unknown History finasteride 5 mg tablet 5 mg PO .evening 09/04/24 11/14/24 Unknown History insulin aspart U-100 100 unit/mL 1 sliding scale dose subcut 09/04/24 11/14/24 Unknown History subcutaneous solution (Novolog USEASDIRECTD U-100 Insulin aspart) methenamine hippurate 1 gram tablet 1 g PO BID 09/04/24 11/14/24 Unknown History metoprolol succinate 25 mg 25 mg PO DAILY 09/04/24 11/14/24 Unknown History tablet,extended release 24 hr omeprazole 20 mg capsule,delayed 20 mg PO DAILY 09/04/24 11/14/24 Unknown History release sacubitril 24 mg-valsartan 26 mg 1 tablet PO Q12H 09/04/24 11/14/24 Unknown History tablet (Entresto) spironolactone 25 mg tablet 25 mg PO DAILY 09/04/24 11/14/24 Unknown History torsemide 10 mg tablet 10 mg PO DAILY 09/04/24 11/14/24 Unknown History insulin glargine U-300 conc 300 18 unit subcut HS 11/14/24 11/14/24 Unknown History unit/mL (1.5 mL) subcutaneous pen (Toujeo SoloStar U-300 Insulin) Allergies Allergy/AdvReac Type Severity Reaction Status Date / Time cephalexin Allergy Unknown Verified 09/04/24 11:17 Review of Systems Review of Systems: All systems reviewed & are unremarkable except as noted in HPI and below PMFSH Social History Social History Smoking status: Never smoker Alcohol intake: never Substance use: never Substance use type: does not use Do You Feel Safe in your Home?: Yes Lack of Transportation: No Lack of Food: Never True Current Housing: I Have Housing Concerned About Future Housing: No Difficulty Paying Gas/Electric Bills: No Difficulty Paying for Meds: No Currently Unemployed: No Education: High School Diploma/GED Difficulty w/ Childcare or Family Care: No Spiritual care concerns: No Exam Narrative: APPEARANCE: Well appearing, no pain, no distress, well-nourished. HEAD: normocephalic, atraumatic. EYES: PERRLA/EOMI, conjunctivae clear. NOSE: Normal no drainage EARS:TMS clear with good light reflex. THROAT: Pharynx clear, no exudate. NECK: Supple. No adenopathy, no masses. RESPIRATORY: Airway patent, respirations nonlabored. Clear to auscultation bilaterally, no rales, rhonchi, wheezing. CARDIOVASCULAR: Regular rate and rhythm without murmurs rubs or gallops. ABDOMINAL: Soft, nontender, nondistended, normal bowel sounds MUSCULOSKELETAL: Moves all extremities. Strength/ROM intact, No edema, No calf tenderness. NEURO: Alert. Cranial nerves II through XII intact. Good gait. Good coordination SKIN: Warm, dry. Normal Color Course Vital Signs Vital signs: Vital Signs Temperature 97.8 F 11/14/24 08:44 Pulse Rate 72 11/14/24 08:44 Respiratory Rate 16 11/14/24 08:44 Blood Pressure 114/68 11/14/24 08:44 Pulse Oximetry 98 11/14/24 08:44 Oxygen Delivery Room Air 11/14/24 08:44 Temperature 97.0 F L 11/14/24 14:00 Pulse Rate 70 11/14/24 14:00 Respiratory Rate 18 11/14/24 14:00 Blood Pressure 131/63 11/14/24 14:00 Pulse Oximetry 100 11/14/24 14:00 Oxygen Delivery Room Air 11/14/24 08:44 Medical Decision Making [facility] Narrative Medical decision making narrative: 84-year-old male present to the emergency department for evaluation for altered mental status increased agitation. Patient is afebrile with no leukocytosis, no significant abnormalities on his CMP, patient's urine cath sample was significant for urinary tract infection. Patient's previous urine cultures show multiple antibiotic resistance and does show sensitivities to [place] abdomen meropenem. Blood cultures were ordered and patient was started on meropenem. Head CT was negative for acute intracranial abnormality with no tracheal hemorrhage. Case was discussed with the hospitalist patient was accepted for admission for IV antibiotics. Differential Diagnosis Differential Diagnosis: Subdural hematoma, subarachnoid hemorrhage, UTI Vital Signs Vital Signs: Vital Signs Temperature 97.8 F 11/14/24 08:44 Pulse Rate 72 11/14/24 08:44 Respiratory Rate 16 11/14/24 08:44 Blood Pressure 114/68 11/14/24 08:44 Pulse Oximetry 98 11/14/24 08:44 Oxygen Delivery Room Air 11/14/24 08:44 Temperature 97.0 F L 11/14/24 14:00 Pulse Rate 70 11/14/24 14:00 Respiratory Rate 18 11/14/24 14:00 Blood Pressure 131/63 11/14/24 14:00 Pulse Oximetry 100 11/14/24 14:00 Oxygen Delivery Room Air 11/14/24 08:44 Lab Data Lab results reviewed: Yes I reviewed the patient's lab results. 11/14/24 08:40 11/14/24 08:40 Labs: Lab Results 11/14/24 Range/Units 08:40 WBC 7.9 (4.5-10.0) K/mm3 RBC 3.84 L (4.6-6.20) M/mm3 Hgb 11.7 L (14.0-18.0) g/dL Hct 36.8 L (42.0-52.0) % MCV 95.8 (80-100) fl MCH 30.5 (26-34) pg MCHC 31.8 L (32-36) g/dl RDW 13.4 (11.5-14.5) % Plt Count 180 (150-375) k/mm3 MPV 10.6 H (7.4-10.4) fl Immature Gran % (Auto) 0.3 (0-0.5) % Neut % (Auto) 63.6 (45.5-73.1) % Lymph % (Auto) 22.5 (18.3-44.2) % [place] % (Auto) 9.6 H (2.6-8.5) % Eos % (Auto) 3.4 (0-4.4) % Baso % (Auto) 0.6 (0.2-1.2) % Lymph # (Auto) 1.78 (0.9-3.2) K/mm3 [place] # (Auto) 0.8 H (0.1-0.6) K/mm3 Eos # (Auto) 0.3 (0-0.3) K/mm3 Baso # (Auto) 0.1 (0.0-0.1) K/mm3 Abs Immat Gran (auto) 0.02 (0.00-0.031) K/mm3 Absolute Neuts (auto) 5.0 (1.3-6.7) K/mm3 Absolute Nucleated RBC 0.000 (0.0-0.012) K/mm3 Nucleated RBC % 0.0 (0.0-0.2) % Sodium 136 L (137-145) mmol/L Potassium 4.3 (3.4-5.0) mmol/L Chloride 100 (98-107) mmol/L Carbon Dioxide 28 (22-30) mmol/L Anion Gap 8 (4-12) mmol/L BUN 30 H (9-20) mg/dL Creatinine 0.93 (0.7-1.3) mg/dL Estim Creat Clear Calc 68 ml/min Estimated GFR > 60 (59 - ) Glucose 174 H (65-110) mg/dL Calcium 8.6 (8.4-10.2) mg/dL Total Bilirubin 0.7 (0.2-1.3) mg/dL AST 26 (17-59) U/L ALT 15 (6-50) U/L Alkaline Phosphatase 66 (38-126) U/L Total Protein 7.2 (6.3-8.2) g/dL Albumin 3.5 (3.5-5.1) g/dL Urine Color Yellow (Yellow) Urine Appearance Cloudy H (Clear) Urine pH 6.5 (5.0-9.0) Ur Specific [place] 1.017 (1.001-1.035) Urine Protein Trace (Negative) mg/dL Urine Glucose (UA) Negative (Negative) mg/dL Urine Ketones Negative (Negative) mg/dL Ur Blood (Man) 1+ H (Negative) Urine Nitrate Positive H (Negative) Urine Bilirubin Negative (Negative) Urine Urobilinogen 1.0 (<2.0) mg/dL Add Ur Microanalysis Reviewed Leukocyte Esterase Rfl 3+ H (Negative) IMELDA/UL Urine RBC 3-5 H (0-2) /hpf Urine WBC >100 H (0-3) /hpf Ur Squamous Epith Cells None seen (Few) /hpf Urine Bacteria 1+ H /hpf Urine Casts 3-5 Imaging Data My impression: CT brain-No acute intracranial abnormality. Discharge Plan Discharge Clinical Impression: AMS (altered mental status), Agitation, Urinary tract infection Patient Disposition: Still a Patient Condition: Serious
[2024-11-14 08:50] LABS: Hematocrit 36.8 % (42.0-52.0); Hemoglobin 11.7 g/dL (14.0-18.0); Immature Granulocyte Percent A 0.3 % (0-0.5); Lymphocytes Absolute Auto 1.78 K/mm3 (0.9-3.2); Mean Corpuscular HGB Conc 31.8 g/dl (32-36); Mean Corpuscular Hemoglobin 30.5 pg (26-34); Mean Corpuscular Volume 95.8 fl (80-100); Nucleated Red Blood Cells Absolute Auto 0.000 K/mm3 (0.0-0.012); Nucleated Red Blood Cells Perc 0.0 % (0.0-0.2); Platelet Count Result 180 k/mm3 (150-375); Red Blood Count 3.84 M/mm3 (4.6-6.20); White Blood Count 7.9 K/mm3 (4.5-10.0)
[2024-11-14 09:01] LABS: Alanine Aminotransferase 15 U/L (6-50); Albumin Level 3.5 g/dL (3.5-5.1); Alkaline Phosphatase 66 U/L (38-126); Anion Gap 8 mmol/L (4-12); Aspartate Amino Transferase 26 U/L (17-59); Bilirubin,Total 0.7 mg/dL (0.2-1.3); Blood Urea Nitrogen 30 mg/dL (9-20); Calcium 8.6 mg/dL (8.4-10.2); Carbon Dioxide 28 mmol/L (22-30); Chloride 100 mmol/L (98-107); Estimated CRCL calculation 68 ml/min; Estimated Glomerular Filt Rate > 60; Glucose 174 mg/dL (65-110); Potassium 4.3 mmol/L (3.4-5.0); Sodium 136 mmol/L (137-145); Total Protein 7.2 g/dL (6.3-8.2)
[2024-11-14 09:07] LABS: Glucose Urine UA Negative (Negative); Leukocyte Esterase Ur 3+ LEU/UL (Negative); Nitrate Urine Positive (Negative); Specific Grav Ur 1.017 (1.001-1.035)
[2024-11-14 09:08] LABS: Need Manual Microscopic Reviewed
[2024-11-14 09:09] LABS: Add Urine Microscopic? YES; Appearance Urine Cloudy (Clear)
[2024-11-14 09:30] VITALS: BP 126/68; PULSE 72; RESP 16; TEMP 36.6; O2SAT 99
[2024-11-14] MEDS: MEROPENEM 1 GM in SODIUM CHLORIDE 0.9% IV 100 ML 200 ML IVPB ×2 (09:56→17:38)
[2024-11-14 10:01] VITALS: BP 129/65; PULSE 74; RESP 16; TEMP 36.5; O2SAT 99
[2024-11-14 12:05] VITALS: BMI 31.1
--- NOTE | 2024-11-14 13:50 | PM.IMHP ---
H&P: HPI History of Present Illness Date/Time: 11/14/24 13:50 Chief Complaint: Mental status change. Narrative: 84 years old male with history of multiple medical problems resident of [facility] was admitted through the emergency room with complaints of mental status change. According to the ER report and family patient was doing fine until yesterday. He started having hallucination and mental status change. Patient was also reportedly abusive to the staff. In ER however patient was not abusive and was smiling and answering questions appropriately. According to the family this is happened the past whenever he developed urinary tract infection. At present time patient is lying comfortably in the bed and denies any complaints. He in the ER patient was found to have UTI and was given antibiotic and transferred to floor for further evaluation treatment. Patient denies any shortness of breath or chest pain. Review of Systems Review of Systems: All systems reviewed & are unremarkable except as noted in HPI and below PMFSH Social History Social History Smoking status: Never smoker Alcohol intake: never Substance use: never Substance use type: does not use Do You Feel Safe in your Home?: Yes Lack of Transportation: No Lack of Food: Never True Current Housing: I Have Housing Concerned About Future Housing: No Difficulty Paying Gas/Electric Bills: No Difficulty Paying for Meds: No Currently Unemployed: No Education: High School Diploma/GED Difficulty w/ Childcare or Family Care: No Spiritual care concerns: No Meds Home Medications and Allergies Home Medications ?Medication ?Instructions ?Recorded ?Confirmed ?Type divalproex 125 mg tablet,delayed 125 mg PO Q12H 10/29/23 11/14/24 History release (Depakote) albuterol sulfate 90 mcg/actuation 2 puff inhalation Q4H PRN 09/04/24 11/14/24 History aerosol inhaler shortness of breath apixaban 5 mg tablet (Eliquis) 5 mg PO BID 09/04/24 11/14/24 History citalopram 10 mg tablet 10 mg PO .bedtime 09/04/24 11/14/24 History finasteride 5 mg tablet 5 mg PO .evening 09/04/24 11/14/24 History insulin aspart U-100 100 unit/mL 1 sliding scale dose subcut 09/04/24 11/14/24 History subcutaneous solution (Novolog USEASDIRECTD U-100 Insulin aspart) methenamine hippurate 1 gram tablet 1 g PO BID 09/04/24 11/14/24 History metoprolol succinate 25 mg 25 mg PO DAILY 09/04/24 11/14/24 History tablet,extended release 24 hr omeprazole 20 mg capsule,delayed 20 mg PO DAILY 09/04/24 11/14/24 History release sacubitril 24 mg-valsartan 26 mg 1 tablet PO Q12H 09/04/24 11/14/24 History tablet (Entresto) spironolactone 25 mg tablet 25 mg PO DAILY 09/04/24 11/14/24 History torsemide 10 mg tablet 10 mg PO DAILY 09/04/24 11/14/24 History bisacodyl 5 mg tablet,delayed 5 mg PO ONCE PRN constipation #10 09/09/24 11/14/24 Rx release (Dulcolax (bisacodyl)) tabs polyethylene glycol 3350 17 17 g PO DAILY #119 grams 09/09/24 11/14/24 Rx gram/dose oral powder (Miralax) insulin glargine U-300 conc 300 18 unit subcut HS 11/14/24 11/14/24 History unit/mL (1.5 mL) subcutaneous pen (Toujeo SoloStar U-300 Insulin) Allergies Allergy/AdvReac Type Severity Reaction Status Date / Time cephalexin Allergy Unknown Verified 09/04/24 11:17 Vital Signs Vital Signs - 24 hr 11/14/24 08:44 11/14/24 09:30 11/14/24 10:01 Temperature 36.6 C 36.6 C 36.5 C Pulse Rate 72 72 74 Respiratory Rate 16 16 16 Blood Pressure 114/68 126/68 129/65 Pulse Oximetry 98 99 99 Oxygen Delivery Room Air Exam Narrative: APPEARANCE: Well appearing, no pain, no distress, well-nourished. HEAD: normocephalic, atraumatic. EYES: PERRLA/EOMI, conjunctivae clear. NOSE: Normal no drainage EARS:TMS clear with good light reflex. THROAT: Pharynx clear, no exudate. NECK: Supple. No adenopathy, no masses. RESPIRATORY: Airway patent, respirations nonlabored. Clear to auscultation bilaterally, no rales, rhonchi, wheezing. CARDIOVASCULAR: Regular rate and rhythm without murmurs rubs or gallops. ABDOMINAL: Soft, nontender, nondistended, normal bowel sounds MUSCULOSKELETAL: Moves all extremities. Strength/ROM intact, No edema, No calf tenderness. NEURO: Alert. Cranial nerves II through XII intact. Good gait. Good coordination SKIN: Warm, dry. Normal [place] H&P: Results Labs Labs: Short CBC 11/14/24 Range/Units 08:40 WBC 7.9 (4.5-10.0) K/mm3 Hgb 11.7 L (14.0-18.0) g/dL Hct 36.8 L (42.0-52.0) % Plt Count 180 (150-375) k/mm3 BMP 11/14/24 08:40 Sodium 136 L Potassium 4.3 Chloride 100 Carbon Dioxide 28 BUN 30 H Creatinine 0.93 Glucose 174 H Calcium 8.6 Liver Function 11/14/24 Range/Units 08:40 Total Bilirubin 0.7 (0.2-1.3) mg/dL AST 26 (17-59) U/L ALT 15 (6-50) U/L Alkaline Phosphatase 66 (38-126) U/L Albumin 3.5 (3.5-5.1) g/dL Urine 11/14/24 Range/Units 08:40 Urine Color Yellow (Yellow) Urine Appearance Cloudy H (Clear) Urine pH 6.5 (5.0-9.0) Ur Specific [place] 1.017 (1.001-1.035) Urine Protein Trace (Negative) mg/dL Urine Glucose (UA) Negative (Negative) mg/dL Assessment and Plan Assessment and plan (1) Acute UTI: Code(s): N39.0 - Urinary tract infection, site not specified Status: Acute Assessment and Plan: Blood culture, urine culture. With history of ESBL in the past. Will start patient on meropenem. (2) Chronic systolic (congestive) heart failure: Code(s): I50.22 - Chronic systolic (congestive) heart failure Status: Acute Assessment and Plan: Stable on current medications, will continue current treatment. (3) Type 2 diabetes mellitus: Code(s): E11.9 - Type 2 diabetes mellitus without complications Status: Acute Assessment and Plan: Stable on current medications, will continue current treatment. (4) BPH (benign prostatic hyperplasia): Code(s): N40.0 - Benign prostatic hyperplasia without lower urinary tract symptoms Status: Suspected Assessment and Plan: Stable on current medications, will continue current treatment. (5) Anemia, unspecified: Code(s): D64.9 - Anemia, unspecified Status: Acute Assessment and Plan: Stable on current medications, will continue current treatment. (6) Dementia with psychosis: Code(s): F03.92 - Unspecified dementia, unspecified severity, with psychotic disturbance Status: Acute Assessment and Plan: Stable on current medications, will continue current treatment. Plan Case discussed with family in detail. Agreed with current plan of care and treatment. Patient is 84 years old male presented with urine tract infection. Plan is to admit for 23 hour observation. Continue home medication. DVT prophylaxis started. Code status DNR. Patient care will be transferred to hospitalist on-call after admission. Quality VTE Prophylaxis VTE prophylaxis: pharmacologic ordered
[2024-11-14 14:00] VITALS: BP 131/63; PULSE 70; RESP 18; TEMP 36.1; O2SAT 100
[2024-11-14] MEDS: ALPRAZolam (*CRX) 0.5 MG TABLET PO (17:05)
[2024-11-14] MEDS: FINASTERIDE 5 MG TABLET PO (17:38)
[2024-11-14 19:53] VITALS: O2SAT 99
[2024-11-14] MEDS: CITALOPRAM HYDROBROMIDE 10 MG TABLET PO (20:01)
[2024-11-14] MEDS: SACUBITRIL/VALSARTAN 24-26 MG TABLET 1 TAB PO (20:01)
[2024-11-14] MEDS: APIXABAN 5 MG TABLET PO (20:01)
[2024-11-14] MEDS: DIVALPROEX SODIUM DR 125 MG TABEC PO (20:01)
[2024-11-14] MEDS: INSULIN GLARGINE (*BKC) 100 UNITS/ML 14 UNITS SUB-Q (20:03)
[2024-11-14] MEDS: INSULIN ASPART (*BKC) 100 UNITS/ML SUB-Q (20:03)
[2024-11-14 20:07] VITALS: BP 143/58; PULSE 70; RESP 16; TEMP 36.6; O2SAT 100
[2024-11-15] MEDS: MEROPENEM 1 GM in SODIUM CHLORIDE 0.9% IV 100 ML 200 ML IVPB ×3 (02:41→17:19)
[2024-11-15 05:37] VITALS: BP 149/76; PULSE 70; RESP 16; TEMP 37; O2SAT 100
--- NOTE | 2024-11-15 07:14 | P.PNIM_ITS ---
Progress Note: A&P Assessment and Plan (1) Acute UTI: Code(s): N39.0 - Urinary tract infection, site not specified Status: Acute Assessment and Plan: f/u Blood culture f/u urine culture with history of ESBL in the past Continue IV meropenem. AM labs (2) Chronic systolic (congestive) heart failure: Code(s): I50.22 - Chronic systolic (congestive) heart failure Status: Acute Assessment and Plan: no signs of acute exacerbation continue Entresto continue spironolactone and torsemide (3) Type 2 diabetes mellitus: Code(s): E11.9 - Type 2 diabetes mellitus without complications Status: Acute Assessment and Plan: accu checks avoid hypoglycemia Lantus 14 units daily Aspart sliding scale (4) BPH (benign prostatic hyperplasia): Code(s): N40.0 - Benign prostatic hyperplasia without lower urinary tract symptoms Status: Suspected Assessment and Plan: Stable on current medications, will continue current treatment. (5) Anemia, unspecified: Code(s): D64.9 - Anemia, unspecified Status: Acute Assessment and Plan: Stable on current medications, will continue current treatment. (6) Dementia with psychosis: Code(s): F03.92 - Unspecified dementia, unspecified severity, with psychotic disturbance Status: Acute Assessment and Plan: Stable on current medications, will continue current treatment. Subjective Date/time seen: 11/15/24 07:14 Interval history: Patient is a 84 year old male with PMH of chronic systolic heart failure, DM type 2, dementia and recurrent UTIs. Patient is a resident of [facility]. Patient was sent to the ER with complaints of mental status changes and hallucinations. Patient was admitted for IV antibiotics. Patients UA indicative of infection. Patient has a history of ESBL UTIs and was started on IV meropenem pending urine culture results. Patient was seen in his room, lying in bed, in no acute distress. Patient denies acute pain. Review of Systems Review of Systems: All systems reviewed & are unremarkable except as noted in HPI and below Exam Narrative: APPEARANCE: Well appearing, no pain, no distress, well-nourished. HEAD: normocephalic, atraumatic. EYES: PERRLA/EOMI, conjunctivae clear. NOSE: Normal no drainage EARS:TMS clear with good light reflex. THROAT: Pharynx clear, no exudate. NECK: Supple. No adenopathy, no masses. RESPIRATORY: Airway patent, respirations nonlabored. Clear to auscultation bilaterally, no rales, rhonchi, wheezing. CARDIOVASCULAR: Regular rate and rhythm without murmurs rubs or gallops. ABDOMINAL: Soft, nontender, nondistended, normal bowel sounds MUSCULOSKELETAL: Moves all extremities. Strength/ROM intact, No edema, No calf tenderness. NEURO: Alert. Cranial nerves II through XII intact. Good gait. Good coordination SKIN: Warm, dry. Normal [place] Objective Data Vital Signs Vital Signs: Vital Signs - 24 hr 11/14/24 08:44 11/14/24 09:30 11/14/24 10:01 Temperature 97.8 F 97.8 F 97.7 F Pulse Rate 72 72 74 Respiratory Rate 16 16 16 Blood Pressure 114/68 126/68 129/65 Pulse Oximetry 98 99 99 Oxygen Delivery Room Air 11/14/24 14:00 11/14/24 17:59 11/14/24 19:53 Temperature 97.0 F L Pulse Rate 70 Respiratory Rate 18 Blood Pressure 131/63 Pulse Oximetry 100 99 Oxygen Delivery Room Air Room Air 11/14/24 20:07 11/14/24 20:10 11/15/24 05:37 Temperature 97.9 F 98.6 F Pulse Rate 70 70 Respiratory Rate 16 16 Blood Pressure 143/58 H 149/76 H Pulse Oximetry 100 100 Oxygen Delivery Room Air Intake/Output Intake/Output: Intake & Output 11/12/24 11/13/24 11/14/24 11/15/24 23:59 23:59 23:59 23:59 Intake Total 680 600 Balance 680 600 Meds/Results Medications: Active Medications Generic Name Dose Route Start Last Admin Trade Name Freq PRN Reason Stop Dose Admin Albuterol 2 puff 11/14/24 13:48 Albuterol Sulfate (*Sp) Aerosol 1 Puff INHALATION Q4H PRN Shortness Of Breath Apixaban 5 mg 11/14/24 21:00 11/14/24 20:01 Apixaban 5 Mg Tablet PO 5 mg Q12HR KEITH Administration Bisacodyl 5 mg 11/14/24 13:48 Bisacodyl 5 Mg Tablet Ec PO DAILY PRN Constipation Citalopram Hydrobromide 10 mg 11/14/24 21:00 11/14/24 20:01 Citalopram Hydrobromide 10 Mg Tablet PO 10 mg HS KEITH Administration Dextrose 12.5 gm 11/14/24 14:14 Dextrose 50% 25 Gm/50 Ml Syringe IV PUSH PRN PRN Hypoglycemia Protocol Divalproex Sodium 125 mg 11/14/24 21:00 11/14/24 20:[address] 125 Mg Tabec PO 125 mg Q12H KEITH Administration Finasteride 5 mg 11/14/24 17:00 11/14/24 17:38 Finasteride 5 Mg Tablet PO 5 mg DAILY@1700 KEITH Administration Glucagon 1 mg 11/14/24 14:14 Glucagon For Inj 1 Mg Vial IM PRN PRN Hypoglycemia Protocol Glucose 15 gm 11/14/24 14:14 Glucose Oral Gel 15 Gm Of Glucse In 37.5 Gm Tube PO PRN PRN Hypoglycemia Protocol Meropenem 1 gm/ Sodium 100 mls @ 200 mls/hr 11/14/24 18:00 11/15/24 03:11 Chloride IVPB Infused Q8H KEITH Infusion Dextrose 1,000 mls @ 100 mls/hr 11/14/24 14:14 Dextrose 5% 1,000 Ml IVPB PRN PRN Hypoglycemia Protocol Insulin Aspart 1 - 2 units 11/14/24 21:00 11/14/24 20:03 Insulin Aspart (*Bkc) 100 Units/Ml SUB-Q 1 units HS KEITH Administration Protocol Insulin Aspart 2 - 5 units 11/14/24 17:00 11/14/24 17:26 Insulin Aspart (*Bkc) 100 Units/Ml SUB-Q Not Given TIDWM COUNT INCLUDES THE [facility] Protocol Insulin Glargine 14 units 11/14/24 21:00 11/14/24 20:03 Insulin Glargine (*Bkc) 100 Units/Ml SUB-Q 14 units HS KEITH Administration Metoprolol Succinate 25 mg 11/15/24 09:00 Metoprolol Succinate Ext Rel 25 Mg Tabcr PO DAILY KEITH Methenamine 1 gm 11/14/24 17:00 11/14/24 17:38 Hippurate 1 Gram PO 12/14/24 16:59 1 gm Tablet BID KEITH Administration Pantoprazole Sodium 40 mg 11/15/24 09:00 Pantoprazole 40 Mg Tablet PO QAM KEITH Polyethylene Glycol 17 gm 11/15/24 09:00 Polyethylene Glycol 3350 17 Gm Powd.Pack PO DAILY COUNT INCLUDES THE [facility] Sacubitril/Valsartan 1 tab 11/14/24 21:00 11/14/24 20:01 Sacubitril/Valsartan 24-26 Mg Tablet PO 1 tab Q12H KEITH Administration Spironolactone 25 mg 11/15/24 09:00 Spironolactone 25 Mg Tablet PO DAILY COUNT INCLUDES THE [facility] Torsemide 10 mg 11/15/24 09:00 Torsemide 10 Mg Tablet PO DAILY COUNT INCLUDES THE [facility] Radiology Results: ITS Impressions Head CT 11/14/24 10:38 Impression: 1.No acute intracranial abnormality. Labs Labs: Laboratory Results - last 24 hr 11/14/24 11/14/24 08:40 20:00 WBC 7.9 RBC 3.84 L Hgb 11.7 L Hct 36.8 L MCV 95.8 MCH 30.5 MCHC 31.8 L RDW 13.4 Plt Count 180 MPV 10.6 H Immature Gran % (Auto) 0.3 Neut % (Auto) 63.6 Lymph % (Auto) 22.5 [place] % (Auto) 9.6 H Eos % (Auto) 3.4 Baso % (Auto) 0.6 Lymph # (Auto) 1.78 [place] # (Auto) 0.8 H Eos # (Auto) 0.3 Baso # (Auto) 0.1 Abs Immat Gran (auto) 0.02 Absolute Neuts (auto) 5.0 Absolute Nucleated RBC 0.000 Nucleated RBC % 0.0 Sodium 136 L Potassium 4.3 Chloride 100 Carbon Dioxide 28 Anion Gap 8 BUN 30 H Creatinine 0.93 Estim Creat Clear Calc 68 Estimated GFR > 60 Glucose 174 H POC Capillary Glucose 218 H Calcium 8.6 Total Bilirubin 0.7 AST 26 ALT 15 Alkaline Phosphatase 66 Total Protein 7.2 Albumin 3.5 Urine Color Yellow Urine Appearance Cloudy H Urine pH 6.5 Ur Specific [place] 1.017 Urine Protein Trace Urine Glucose (UA) Negative Urine Ketones Negative Ur Blood (Man) 1+ H Urine Nitrate Positive H Urine Bilirubin Negative Urine Urobilinogen 1.0 Add Ur Microanalysis Reviewed Leukocyte Esterase Rfl 3+ H Urine RBC 3-5 H Urine WBC >100 H Ur Squamous Epith Cells None seen Urine Bacteria 1+ H Urine Casts 3-5 Quality VTE Prophylaxis VTE prophylaxis: pharmacologic ordered
[2024-11-15] MEDS: APIXABAN 5 MG TABLET PO ×2 (09:56→20:21)
[2024-11-15] MEDS: PANTOPRAZOLE 40 MG TABLET PO (09:56)
[2024-11-15] MEDS: METOPROLOL SUCCINATE EXT REL 25 MG TABCR PO (09:57)
[2024-11-15] MEDS: DIVALPROEX SODIUM DR 125 MG TABEC PO ×2 (09:57→20:21)
[2024-11-15] MEDS: TORSEMIDE 10 MG TABLET PO (09:57)
[2024-11-15] MEDS: SACUBITRIL/VALSARTAN 24-26 MG TABLET 1 TAB PO ×2 (09:57→20:21)
[2024-11-15] MEDS: SPIRONOLACTONE 25 MG TABLET PO (09:57)
[2024-11-15] MEDS: INSULIN ASPART (*BKC) 100 UNITS/ML SUB-Q (12:41)
[2024-11-15 14:00] VITALS: BP 122/69; PULSE 70; RESP 18; TEMP 36.1; O2SAT 100
[2024-11-15] MEDS: FINASTERIDE 5 MG TABLET PO (17:18)
[2024-11-15 20:18] VITALS: BP 106/92; PULSE 70; RESP 20; TEMP 36.3; O2SAT 98
[2024-11-15] MEDS: INSULIN GLARGINE (*BKC) 100 UNITS/ML 14 UNITS SUB-Q (20:21)
[2024-11-15] MEDS: CITALOPRAM HYDROBROMIDE 10 MG TABLET PO (20:21)
[2024-11-16] MEDS: MEROPENEM 1 GM in SODIUM CHLORIDE 0.9% IV 100 ML 200 ML IVPB ×4 (01:08→22:36)
[2024-11-16 05:37] VITALS: BP 129/64; PULSE 67; RESP 16; TEMP 37.2; O2SAT 95
[2024-11-16 05:56] LABS: Hematocrit 40.6 % (42.0-52.0); Hemoglobin 12.8 g/dL (14.0-18.0); Immature Granulocyte Percent A 0.4 % (0-0.5); Lymphocytes Absolute Auto 1.41 K/mm3 (0.9-3.2); Mean Corpuscular HGB Conc 31.5 g/dl (32-36); Mean Corpuscular Hemoglobin 30.9 pg (26-34); Mean Corpuscular Volume 98.1 fl (80-100); Nucleated Red Blood Cells Absolute Auto 0.000 K/mm3 (0.0-0.012); Nucleated Red Blood Cells Perc 0.0 % (0.0-0.2); Platelet Count Result 206 k/mm3 (150-375); Red Blood Count 4.14 M/mm3 (4.6-6.20); White Blood Count 8.0 K/mm3 (4.5-10.0)
[2024-11-16 06:25] LABS: Alanine Aminotransferase 11 U/L (6-50); Anion Gap 6 mmol/L (4-12); Bilirubin,Total 0.6 mg/dL (0.2-1.3); Blood Urea Nitrogen 18 mg/dL (9-20); Calcium 9.0 mg/dL (8.4-10.2); Carbon Dioxide 30 mmol/L (22-30); Chloride 98 mmol/L (98-107); Estimated CRCL calculation 79 ml/min; Estimated Glomerular Filt Rate > 60; Glucose 159 mg/dL (65-110); Sodium 134 mmol/L (137-145)
[2024-11-16 06:31] LABS: Albumin Level 3.6 g/dL (3.5-5.1); Alkaline Phosphatase 75 U/L (38-126); Aspartate Amino Transferase 21 U/L (17-59); Potassium 4.2 mmol/L (3.4-5.0); Total Protein 7.2 g/dL (6.3-8.2)
--- NOTE | 2024-11-16 07:38 | P.PNIM_ITS ---
Progress Note: A&P Assessment and Plan (1) Acute UTI: Code(s): N39.0 - Urinary tract infection, site not specified Status: Acute Assessment and Plan: f/u Blood culture f/u urine culture, gram negative bacilli isolated monitor for final ID and sensitivities with history of ESBL in the past Continue IV meropenem. AM labs (2) Chronic systolic (congestive) heart failure: Code(s): I50.22 - Chronic systolic (congestive) heart failure Status: Acute Assessment and Plan: no signs of acute exacerbation continue Entresto continue spironolactone and torsemide (3) Type 2 diabetes mellitus: Code(s): E11.9 - Type 2 diabetes mellitus without complications Status: Acute Assessment and Plan: accu checks avoid hypoglycemia Lantus 14 units daily Aspart sliding scale (4) BPH (benign prostatic hyperplasia): Code(s): N40.0 - Benign prostatic hyperplasia without lower urinary tract symptoms Status: Suspected Assessment and Plan: Stable on current medications, will continue current treatment. (5) Anemia, unspecified: Code(s): D64.9 - Anemia, unspecified Status: Acute Assessment and Plan: Stable on current medications, will continue current treatment. monitor H&H (6) Dementia with psychosis: Code(s): F03.92 - Unspecified dementia, unspecified severity, with psychotic disturbance Status: Acute Assessment and Plan: Stable on current medications, will continue current treatment. patient continued on Depakote for behaviors at group home Meropenem reduces the efficacy of Depakote immensely and lowers the seizure threshold, patient started on PO Keppra x 7 days Subjective Date/time seen: 11/16/24 07:38 Interval history: Patient is a 84 year old male with PMH of chronic systolic heart failure, DM type 2, dementia and recurrent UTIs. Patient is a resident of [facility]. Patient was sent to the ER with complaints of mental status changes and hallucinations. Patient was admitted for IV antibiotics. Patients UA indicative of infection. Patient has a history of ESBL UTIs and was started on IV meropenem pending urine culture results. Patient was seen in his room, lying in bed, in no acute distress. Patient denies acute pain. Patient's urine culture has isolated gram negative bacilli, await final ID and sensitivities. Patient continues on the Meropenem and is also on Depakote for behaviors from the group home. Since Meropenem lowers the effectiveness of Depakote significantly and increases the patient's seizure threshold patient will be started on PO Keppra for 7 days. This was discussed with the pharmacist. Patient denies pain. Patient denies acute complaints. Patient tolerating diet. Await urine culture results to determine if IV antibiotics will be needed on discharge. Review of Systems Review of Systems: All systems reviewed & are unremarkable except as noted in HPI and below Exam Narrative: APPEARANCE: Well appearing, no pain, no distress, well-nourished. HEAD: normocephalic, atraumatic. EYES: PERRLA/EOMI, conjunctivae clear. NOSE: Normal no drainage EARS:TMS clear with good light reflex. THROAT: Pharynx clear, no exudate. NECK: Supple. No adenopathy, no masses. RESPIRATORY: Airway patent, respirations nonlabored. Clear to auscultation bilaterally, no rales, rhonchi, wheezing. CARDIOVASCULAR: Regular rate and rhythm without murmurs rubs or gallops. ABDOMINAL: Soft, nontender, nondistended, normal bowel sounds MUSCULOSKELETAL: Moves all extremities. Strength/ROM intact, No edema, No calf tenderness. NEURO: Alert. Cranial nerves II through XII intact. Good gait. Good coordination SKIN: Warm, dry. Normal [place] Objective Data Vital Signs Vital Signs: Vital Signs - 24 hr 11/15/24 14:00 11/15/24 20:18 11/15/24 20:29 Temperature 96.9 F L 97.3 F L Pulse Rate 70 70 Respiratory Rate 18 20 Blood Pressure 122/69 106/92 H Pulse Oximetry 100 98 Oxygen Delivery Room Air 11/16/24 05:37 Temperature 99 F Pulse Rate 67 Respiratory Rate 16 Blood Pressure 129/64 Pulse Oximetry 95 Oxygen Delivery Intake/Output Intake/Output: Intake & Output 11/13/24 11/14/24 11/15/24 11/16/24 23:59 23:59 23:59 23:59 Intake Total 680 1520 650 Balance 680 1520 650 Meds/Results Medications: Active Medications Generic Name Dose Route Start Last Admin Trade Name Freq PRN Reason Stop Dose Admin Albuterol 2 puff 11/14/24 13:48 Albuterol Sulfate (*Sp) Aerosol 1 Puff INHALATION Q4H PRN Shortness Of Breath Apixaban 5 mg 11/14/24 21:00 11/15/24 20:21 Apixaban 5 Mg Tablet PO 5 mg Q12HR KEITH Administration Bisacodyl 5 mg 11/14/24 13:48 Bisacodyl 5 Mg Tablet Ec PO DAILY PRN Constipation Citalopram Hydrobromide 10 mg 11/14/24 21:00 11/15/24 20:21 Citalopram Hydrobromide 10 Mg Tablet PO 10 mg HS KEITH Administration Dextrose 12.5 gm 11/14/24 14:14 Dextrose 50% 25 Gm/50 Ml Syringe IV PUSH PRN PRN Hypoglycemia Protocol Divalproex Sodium 125 mg 11/14/24 21:00 11/15/24 20:[address] 125 Mg Tabec PO 125 mg Q12H KEITH Administration Finasteride 5 mg 11/14/24 17:00 11/15/24 17:18 Finasteride 5 Mg Tablet PO 5 mg DAILY@1700 KEITH Administration Glucagon 1 mg 11/14/24 14:14 Glucagon For Inj 1 Mg Vial IM PRN PRN Hypoglycemia Protocol Glucose 15 gm 11/14/24 14:14 Glucose Oral Gel 15 Gm Of Glucse In 37.5 Gm Tube PO PRN PRN Hypoglycemia Protocol Meropenem 1 gm/ Sodium 100 mls @ 200 mls/hr 11/14/24 18:00 11/16/24 01:38 Chloride IVPB Infused Q8H KEITH Infusion Dextrose 1,000 mls @ 100 mls/hr 11/14/24 14:14 Dextrose 5% 1,000 Ml IVPB PRN PRN Hypoglycemia Protocol Insulin Aspart 1 - 2 units 11/14/24 21:00 11/15/24 20:22 Insulin Aspart (*Bkc) 100 Units/Ml SUB-Q Not Given HS KEITH Protocol Insulin Aspart 2 - 5 units 11/14/24 17:00 11/15/24 17:14 Insulin Aspart (*Bkc) 100 Units/Ml SUB-Q Not Given TIDWM [facility] Protocol Insulin Glargine 14 units 11/14/24 21:00 11/15/24 20:21 Insulin Glargine (*Bkc) 100 Units/Ml SUB-Q 14 units HS KEITH Administration Metoprolol Succinate 25 mg 11/15/24 09:00 11/15/24 09:57 Metoprolol Succinate Ext Rel 25 Mg Tabcr PO 25 mg DAILY KEITH Administration Methenamine 1 gm 11/14/24 17:00 11/15/24 17:52 Hippurate 1 Gram PO 12/14/24 16:59 1 gm Tablet BID KEITH Administration Pantoprazole Sodium 40 mg 11/15/24 09:00 11/15/24 09:56 Pantoprazole 40 Mg Tablet PO 40 mg QAM KEITH Administration Polyethylene Glycol 17 gm 11/15/24 09:00 11/15/24 09:57 Polyethylene Glycol 3350 17 Gm Powd.Pack PO 17 gm DAILY KEITH Administration Sacubitril/Valsartan 1 tab 11/14/24 21:00 11/15/24 20:21 Sacubitril/Valsartan 24-26 Mg Tablet PO 1 tab Q12H KEITH Administration Spironolactone 25 mg 11/15/24 09:00 11/15/24 09:57 Spironolactone 25 Mg Tablet PO 25 mg DAILY KEITH Administration Torsemide 10 mg 11/15/24 09:00 11/15/24 09:57 Torsemide 10 Mg Tablet PO 10 mg DAILY KEITH Administration Radiology Results: ITS Impressions Head CT 11/14/24 10:38 Impression: 1.No acute intracranial abnormality. Labs Labs: Laboratory Results - last 24 hr 11/15/24 11/15/24 11/15/24 11:53 16:54 20:16 WBC RBC Hgb Hct MCV MCH MCHC RDW Plt Count MPV Immature Gran % (Auto) Neut % (Auto) Lymph % (Auto) [place] % (Auto) Eos % (Auto) Baso % (Auto) Lymph # (Auto) [place] # (Auto) Eos # (Auto) Baso # (Auto) Abs Immat Gran (auto) Absolute Neuts (auto) Absolute Nucleated RBC Nucleated RBC % Sodium Potassium Chloride Carbon Dioxide Anion Gap BUN Creatinine Estim Creat Clear Calc Estimated GFR Glucose POC Capillary Glucose 203 H 158 H 190 H Calcium Total Bilirubin AST ALT Alkaline Phosphatase Total Protein Albumin 11/16/24 05:32 WBC 8.0 RBC 4.14 L Hgb 12.8 L Hct 40.6 L MCV 98.1 MCH 30.9 MCHC 31.5 L RDW 13.5 Plt Count 206 MPV 11.4 H Immature Gran % (Auto) 0.4 Neut % (Auto) 70.5 Lymph % (Auto) 17.6 L [place] % (Auto) 8.0 Eos % (Auto) 2.9 Baso % (Auto) 0.6 Lymph # (Auto) 1.41 [place] # (Auto) 0.6 Eos # (Auto) 0.2 Baso # (Auto) 0.1 Abs Immat Gran (auto) 0.03 Absolute Neuts (auto) 5.7 Absolute Nucleated RBC 0.000 Nucleated RBC % 0.0 Sodium 134 L Potassium 4.2 Chloride 98 Carbon Dioxide 30 Anion Gap 6 BUN 18 D Creatinine 0.79 Estim Creat Clear Calc 79 Estimated GFR > 60 Glucose 159 H POC Capillary Glucose Calcium 9.0 Total Bilirubin 0.6 AST 21 ALT 11 Alkaline Phosphatase 75 Total Protein 7.2 Albumin 3.6 Quality VTE Prophylaxis VTE prophylaxis: pharmacologic ordered
[2024-11-16] MEDS: SACUBITRIL/VALSARTAN 24-26 MG TABLET 1 TAB PO ×2 (10:14→21:59)
[2024-11-16] MEDS: METOPROLOL SUCCINATE EXT REL 25 MG TABCR PO (10:15)
[2024-11-16] MEDS: PANTOPRAZOLE 40 MG TABLET PO (10:15)
[2024-11-16] MEDS: TORSEMIDE 10 MG TABLET PO (10:15)
[2024-11-16] MEDS: APIXABAN 5 MG TABLET PO ×2 (10:16→21:59)
[2024-11-16] MEDS: DIVALPROEX SODIUM DR 125 MG TABEC PO ×2 (10:16→21:59)
[2024-11-16] MEDS: SPIRONOLACTONE 25 MG TABLET PO (10:16)
[2024-11-16 14:00] VITALS: BP 122/70; PULSE 70; RESP 19; TEMP 37.3; O2SAT 97
[2024-11-16] MEDS: FINASTERIDE 5 MG TABLET PO (18:00)
[2024-11-16 19:36] VITALS: PULSE 80; RESP 20; O2SAT 98
[2024-11-16 20:00] VITALS: PULSE 72; RESP 16; O2SAT 100
[2024-11-16 21:50] VITALS: BP 119/58; PULSE 72; RESP 16; TEMP 36.3; O2SAT 100
[2024-11-16] MEDS: CITALOPRAM HYDROBROMIDE 10 MG TABLET PO (22:01)
[2024-11-16] MEDS: INSULIN ASPART (*BKC) 100 UNITS/ML SUB-Q (22:08)
[2024-11-16] MEDS: INSULIN GLARGINE (*BKC) 100 UNITS/ML 14 UNITS SUB-Q (22:09)
[2024-11-17] MEDS: MEROPENEM 1 GM in SODIUM CHLORIDE 0.9% IV 100 ML 200 ML IVPB ×3 (05:37→21:47)
[2024-11-17 06:35] VITALS: BP 128/59; PULSE 82; RESP 16; TEMP 36.6; O2SAT 100
[2024-11-17 06:40] LABS: Hematocrit 39.1 % (42.0-52.0); Hemoglobin 12.4 g/dL (14.0-18.0); Immature Granulocyte Percent A 0.3 % (0-0.5); Lymphocytes Absolute Auto 1.84 K/mm3 (0.9-3.2); Mean Corpuscular HGB Conc 31.7 g/dl (32-36); Mean Corpuscular Hemoglobin 30.1 pg (26-34); Mean Corpuscular Volume 94.9 fl (80-100); Nucleated Red Blood Cells Absolute Auto 0.000 K/mm3 (0.0-0.012); Nucleated Red Blood Cells Perc 0.0 % (0.0-0.2); Platelet Count Result 198 k/mm3 (150-375); Red Blood Count 4.12 M/mm3 (4.6-6.20); White Blood Count 7.2 K/mm3 (4.5-10.0)
[2024-11-17 06:54] LABS: Alanine Aminotransferase 14 U/L (6-50); Albumin Level 3.5 g/dL (3.5-5.1); Alkaline Phosphatase 87 U/L (38-126); Anion Gap 6 mmol/L (4-12); Aspartate Amino Transferase 19 U/L (17-59); Bilirubin,Total 0.4 mg/dL (0.2-1.3); Blood Urea Nitrogen 21 mg/dL (9-20); Calcium 9.1 mg/dL (8.4-10.2); Carbon Dioxide 31 mmol/L (22-30); Chloride 99 mmol/L (98-107); Estimated CRCL calculation 61 ml/min; Estimated Glomerular Filt Rate > 60; Glucose 160 mg/dL (65-110); Potassium 4.2 mmol/L (3.4-5.0); Sodium 136 mmol/L (137-145); Total Protein 7.2 g/dL (6.3-8.2)
[2024-11-17 08:00] VITALS: O2SAT 100
[2024-11-17 09:00] VITALS: PULSE 70
[2024-11-17] MEDS: APIXABAN 5 MG TABLET PO ×2 (09:00→21:46)
[2024-11-17] MEDS: METOPROLOL SUCCINATE EXT REL 25 MG TABCR PO (09:00)
[2024-11-17] MEDS: DIVALPROEX SODIUM DR 125 MG TABEC PO ×2 (09:00→21:46)
[2024-11-17] MEDS: TORSEMIDE 10 MG TABLET PO (09:01)
[2024-11-17] MEDS: PANTOPRAZOLE 40 MG TABLET PO (09:01)
[2024-11-17] MEDS: SPIRONOLACTONE 25 MG TABLET PO (09:01)
[2024-11-17] MEDS: SACUBITRIL/VALSARTAN 24-26 MG TABLET 1 TAB PO ×2 (09:01→21:47)
[2024-11-17] MEDS: INSULIN ASPART (*BKC) 100 UNITS/ML SUB-Q (12:36)
--- NOTE | 2024-11-17 13:49 | PC.NURSE ---
Patient had blood glucose of 421 for lunch today was unable to contact provider at the time was told by another provider to give sliding scale 5 units.
[2024-11-17 14:00] VITALS: BP 116/60; PULSE 70; RESP 18; TEMP 36.2; O2SAT 99
--- NOTE | 2024-11-17 15:51 | P.PNIM_ITS ---
Progress Note: A&P Assessment and Plan (1) Acute UTI: Code(s): N39.0 - Urinary tract infection, site not specified Status: Acute Assessment and Plan: Patient with recurrent UTIs previous history of ESBL * Blood culture NGTD * urine culture Providencia stuartii ESBL * monitor for final ID and sensitivities * Will continue IV meropenem will get final dose ertapenem Friday11/20/2024 (2) Chronic systolic (congestive) heart failure: Code(s): I50.22 - Chronic systolic (congestive) heart failure Status: Acute Assessment and Plan: no signs of acute exacerbation * continue Entresto * continue spironolactone and torsemide (3) Type 2 diabetes mellitus: Code(s): E11.9 - Type 2 diabetes mellitus without complications Status: Acute Assessment and Plan: * accu checks a.c. HS * Hypoglycemic protocol * Lantus 14 units daily * SSI * Diabetic diet (4) BPH (benign prostatic hyperplasia): Code(s): N40.0 - Benign prostatic hyperplasia without lower urinary tract symptoms Status: Suspected Assessment and Plan: Stable on current medications, will continue current treatment. Today had episode of some retention * Continued with Proscar will add Flomax * Continue with postvoid bladder scans (5) Dementia with psychosis: Code(s): F03.92 - Unspecified dementia, unspecified severity, with psychotic disturbance Status: Acute Assessment and Plan: Stable on current medications, will continue current treatment. * patient continued on Depakote for behaviors at shelter * Meropenem reduces the efficacy of Depakote immensely and lowers the seizure threshold, patient started on PO Keppra x 7 days Plan Code status: Full code per patient DVT prophylaxis: Eliquis Stress ulcer prophylaxis: Protonix 40 daily PT/OT notes: SNF/bed ridden Disposition: Patient continues admission to the medical unit currently being treated for ESBL in the urine will need to continue with IV meropenem due to sensitivities will return to senior care facility when medically stable. Time Spent With Patient Time with patient: 15 - 25 minutes Subjective Date/time seen: 11/17/24 15:51 Interval history: Patient is a 84 year old male with PMH of chronic systolic heart failure, DM type 2, dementia and recurrent UTIs. Patient is a resident of [facility]. Patient was sent to the ER with complaints of mental status changes and hallucinations. Patient was admitted for IV antibiotics. Patients UA indicative of infection. Patient has a history of ESBL UTIs and was started on IV meropenem pending urine culture results. Patient was seen in his room, lying in bed, in no acute distress. Patient was admitted for further treatment of urinary tract infection 11/17/2024: Patient with no acute complaints today denies any complications of voiding patient denies any chest pain, shortness a breath, nausea, vomiting or difficulties defecating. No fevers or chills Review of Systems Review of Systems: All systems reviewed & are unremarkable except as noted in HPI and below Exam Narrative: APPEARANCE: NAD NECK: Supple. RESPIRATORY: nonlabored. Clear to auscultation bilaterally CARDIOVASCULAR: RRR ABDOMINAL: Soft, nontender, nondistended, normal bowel sounds MUSCULOSKELETAL: Moves all extremities. Strength/ROM intact, bed-bound SKIN: Warm, dry. Normal [place] Objective Data Vital Signs Vital Signs: Vital Signs - 24 hr 11/16/24 19:36 11/16/24 20:00 11/16/24 21:50 Temperature 97.4 F L Pulse Rate 80 72 72 Respiratory Rate 20 16 16 Blood Pressure 119/58 L Pulse Oximetry 98 100 100 Oxygen Delivery Room Air Room Air Fraction of Inspired Oxygen 21 11/17/24 01:07 11/17/24 06:35 11/17/24 08:00 Temperature 97.8 F Pulse Rate 82 Respiratory Rate 16 Blood Pressure 128/59 L Pulse Oximetry 100 100 Oxygen Delivery Room Air Room Air Fraction of Inspired Oxygen 11/17/24 08:00 11/17/24 09:00 11/17/24 14:00 Temperature 97.2 F L Pulse Rate 70 70 Respiratory Rate 18 Blood Pressure 116/60 Pulse Oximetry 99 Oxygen Delivery Room Air Fraction of Inspired Oxygen Intake/Output Intake/Output: Intake & Output 11/14/24 11/15/24 11/16/24 11/17/24 23:59 23:59 23:59 23:59 Intake Total 680 1520 1740 1250 Balance 680 1520 1740 1250 Meds/Results Medications: Active Medications Generic Name Dose Route Start Last Admin Trade Name Freq PRN Reason Stop Dose Admin Albuterol 2 puff 11/14/24 13:48 Albuterol Sulfate (*Sp) Aerosol 1 Puff INHALATION Q4H PRN Shortness Of Breath Apixaban 5 mg 11/14/24 21:00 11/17/24 09:00 Apixaban 5 Mg Tablet PO 5 mg Q12HR KEITH Administration Bisacodyl 5 mg 11/14/24 13:48 Bisacodyl 5 Mg Tablet Ec PO DAILY PRN Constipation Citalopram Hydrobromide 10 mg 11/14/24 21:00 11/16/24 22:01 Citalopram Hydrobromide 10 Mg Tablet PO 10 mg HS KEITH Administration Dextrose 12.5 gm 11/14/24 14:14 Dextrose 50% 25 Gm/50 Ml Syringe IV PUSH PRN PRN Hypoglycemia Protocol Divalproex Sodium 125 mg 11/14/24 21:00 11/17/24 09:[address] 125 Mg Tabec PO 125 mg Q12H KEITH Administration Finasteride 5 mg 11/14/24 17:00 11/16/24 18:00 Finasteride 5 Mg Tablet PO 5 mg DAILY@1700 KEITH Administration Glucagon 1 mg 11/14/24 14:14 Glucagon For Inj 1 Mg Vial IM PRN PRN Hypoglycemia Protocol Glucose 15 gm 11/14/24 14:14 Glucose Oral Gel 15 Gm Of Glucse In 37.5 Gm Tube PO PRN PRN Hypoglycemia Protocol Dextrose 1,000 mls @ 100 mls/hr 11/14/24 14:14 Dextrose 5% 1,000 Ml IVPB PRN PRN Hypoglycemia Protocol Meropenem 1 gm/ Sodium 100 mls @ 200 mls/hr 11/16/24 22:25 11/17/24 14:42 Chloride IVPB 11/19/24 22:29 200 mls/hr Q8HR KEITH Administration Ertapenem 1 gm/ Sodium 50 mls @ 100 mls/hr 11/20/24 08:00 Chloride IVPB 11/20/24 08:29 ONCE ONE Insulin Aspart 1 - 2 units 11/14/24 21:00 11/16/24 22:08 Insulin Aspart (*Bkc) 100 Units/Ml SUB-Q 1 units HS KEITH Administration Protocol Insulin Aspart 2 - 5 units 11/14/24 17:00 11/17/24 12:36 Insulin Aspart (*Bkc) 100 Units/Ml SUB-Q 5 units TIDWM KEITH Administration Protocol Insulin Glargine 14 units 11/14/24 21:00 11/16/24 22:09 Insulin Glargine (*Bkc) 100 Units/Ml SUB-Q 14 units HS KEITH Administration Levetiracetam 500 mg 11/16/24 09:30 11/17/24 09:01 Levetiracetam 500 Mg Tablet PO 11/22/24 21:01 500 mg Q12HR KEITH Administration Metoprolol Succinate 25 mg 11/15/24 09:00 11/17/24 09:00 Metoprolol Succinate Ext Rel 25 Mg Tabcr PO 25 mg DAILY KEITH Administration Methenamine 1 gm 11/14/24 17:00 11/17/24 10:27 Hippurate 1 Gram PO 12/14/24 16:59 1 gm Tablet BID KEITH Administration Pantoprazole Sodium 40 mg 11/15/24 09:00 11/17/24 09:01 Pantoprazole 40 Mg Tablet PO 40 mg QAM KEITH Administration Polyethylene Glycol 17 gm 11/15/24 09:00 11/17/24 09:01 Polyethylene Glycol 3350 17 Gm Powd.Pack PO Not Given DAILY KEITH Sacubitril/Valsartan 1 tab 11/14/24 21:00 11/17/24 09:01 Sacubitril/Valsartan 24-26 Mg Tablet PO 1 tab Q12H KEITH Administration Spironolactone 25 mg 11/15/24 09:00 11/17/24 09:01 Spironolactone 25 Mg Tablet PO 25 mg DAILY KEITH Administration Torsemide 10 mg 11/15/24 09:00 11/17/24 09:01 Torsemide 10 Mg Tablet PO 10 mg DAILY KEITH Administration Radiology Results: ITS Impressions Head CT 11/14/24 10:38 Impression: 1.No acute intracranial abnormality. Labs Labs: Laboratory Results - last 24 hr 11/16/24 11/16/24 11/17/24 16:42 21:52 06:09 WBC 7.2 RBC 4.12 L Hgb 12.4 L Hct 39.1 L MCV 94.9 MCH 30.1 MCHC 31.7 L RDW 13.6 Plt Count 198 MPV 10.5 H Immature Gran % (Auto) 0.3 Neut % (Auto) 61.2 Lymph % (Auto) 25.6 [place] % (Auto) 9.0 H Eos % (Auto) 3.3 Baso % (Auto) 0.6 Lymph # (Auto) 1.84 [place] # (Auto) 0.7 H Eos # (Auto) 0.2 Baso # (Auto) 0.0 Abs Immat Gran (auto) 0.02 Absolute Neuts (auto) 4.4 Absolute Nucleated RBC 0.000 Nucleated RBC % 0.0 Sodium 136 L Potassium 4.2 Chloride 99 Carbon Dioxide 31 H Anion Gap 6 BUN 21 H Creatinine 1.05 Estim Creat Clear Calc 61 Estimated GFR > 60 Glucose 160 H POC Capillary Glucose 162 H 201 H Calcium 9.1 Total Bilirubin 0.4 AST 19 ALT 14 Alkaline Phosphatase 87 Total Protein 7.2 Albumin 3.5 11/17/24 11/17/24 07:49 11:53 WBC RBC Hgb Hct MCV MCH MCHC RDW Plt Count MPV Immature Gran % (Auto) Neut % (Auto) Lymph % (Auto) [place] % (Auto) Eos % (Auto) Baso % (Auto) Lymph # (Auto) [place] # (Auto) Eos # (Auto) Baso # (Auto) Abs Immat Gran (auto) Absolute Neuts (auto) Absolute Nucleated RBC Nucleated RBC % Sodium Potassium Chloride Carbon Dioxide Anion Gap BUN Creatinine Estim Creat Clear Calc Estimated GFR Glucose POC Capillary Glucose 169 H 421 H Calcium Total Bilirubin AST ALT Alkaline Phosphatase Total Protein Albumin Quality VTE Prophylaxis VTE prophylaxis: pharmacologic ordered -Patient's previous records reviewed on admission -ER notes reviewed in detail on admission -discussed all findings and current treatment plan with patient/Family/POA -Consultations reviewed for recommendations -Patient's disposition for safe discharge discussed with caser shoe parts Dictation performed by [employer] direct speech recognition software, therefore shooter helper variants and typographical errors may occur. Hospitalist MIPS Advance Care Plan I have confirmed that the patient's Advanced Care Plan is present, code status is documented, or surrogate decision maker is listed in patient medical record.: Yes Medication Reconciliation I have utilized all available resources to obtain, update and review the patients current medications (includes all prescriptions, OTC, herbals, cannabis, and nutritional supplements).: Yes The patient is not eligible for med reconciliation; the patient is in a emergent medical situation where delaying treatment would jeopardize the patients health.: No
[2024-11-17] MEDS: FINASTERIDE 5 MG TABLET PO (16:34)
[2024-11-17] MEDS: TAMSULOSIN HCL 0.4 MG CAPSULE PO (16:34)
[2024-11-17 20:09] VITALS: O2SAT 96
[2024-11-17] MEDS: CITALOPRAM HYDROBROMIDE 10 MG TABLET PO (21:46)
[2024-11-17 22:00] VITALS: BP 97/51; PULSE 70; RESP 20; TEMP 36.9; O2SAT 96
[2024-11-17] MEDS: INSULIN GLARGINE (*BKC) 100 UNITS/ML 14 UNITS SUB-Q (22:01)
[2024-11-18 05:26] VITALS: BP 108/56; PULSE 56; RESP 16; TEMP 36.7; O2SAT 98
[2024-11-18] MEDS: MEROPENEM 1 GM in SODIUM CHLORIDE 0.9% IV 100 ML 200 ML IVPB ×3 (05:51→22:30)
[2024-11-18 08:00] VITALS: PULSE 70; O2SAT 95
[2024-11-18] MEDS: APIXABAN 5 MG TABLET PO ×2 (09:12→20:29)
[2024-11-18] MEDS: DIVALPROEX SODIUM DR 125 MG TABEC PO ×2 (09:12→20:29)
[2024-11-18 09:14] VITALS: PULSE 70
[2024-11-18] MEDS: METOPROLOL SUCCINATE EXT REL 25 MG TABCR PO (09:14)
[2024-11-18] MEDS: PANTOPRAZOLE 40 MG TABLET PO (09:15)
[2024-11-18] MEDS: TAMSULOSIN HCL 0.4 MG CAPSULE PO (09:16)
[2024-11-18] MEDS: SACUBITRIL/VALSARTAN 24-26 MG TABLET 1 TAB PO ×2 (09:16→20:30)
[2024-11-18] MEDS: SPIRONOLACTONE 25 MG TABLET PO (09:16)
[2024-11-18] MEDS: TORSEMIDE 10 MG TABLET PO (09:16)
[2024-11-18 09:27] LABS: Hematocrit 37.6 % (42.0-52.0); Hemoglobin 11.9 g/dL (14.0-18.0); Mean Corpuscular HGB Conc 31.6 g/dl (32-36); Mean Corpuscular Hemoglobin 30.1 pg (26-34); Mean Corpuscular Volume 95.2 fl (80-100); Platelet Count Result 192 k/mm3 (150-375); Red Blood Count 3.95 M/mm3 (4.6-6.20); White Blood Count 8.0 K/mm3 (4.5-10.0)
[2024-11-18 10:15] LABS: Alanine Aminotransferase 11 U/L (6-50); Albumin Level 3.4 g/dL (3.5-5.1); Alkaline Phosphatase 79 U/L (38-126); Anion Gap 4 mmol/L (4-12); Aspartate Amino Transferase 19 U/L (17-59); Bilirubin,Total 0.5 mg/dL (0.2-1.3); Blood Urea Nitrogen 26 mg/dL (9-20); Calcium 9.1 mg/dL (8.4-10.2); Carbon Dioxide 33 mmol/L (22-30); Chloride 101 mmol/L (98-107); Estimated CRCL calculation 58 ml/min; Estimated Glomerular Filt Rate > 60; Glucose 152 mg/dL (65-110); Potassium 4.4 mmol/L (3.4-5.0); Sodium 138 mmol/L (137-145); Total Protein 7.1 g/dL (6.3-8.2)
[2024-11-18 14:00] VITALS: BP 150/96; PULSE 70; RESP 20; TEMP 37; O2SAT 94
--- NOTE | 2024-11-18 14:27 | P.PNIM_ITS ---
Progress Note: A&P Assessment and Plan (1) Acute UTI: Code(s): N39.0 - Urinary tract infection, site not specified <Derek Norris, Student - Last Filed: 11/18/24 15:23> Status: Acute <Derek Norris, Student - Last Filed: 11/18/24 15:23> Assessment and Plan: Patient with recurrent UTIs previous history of ESBL * Blood culture NGTD * urine culture Providencia stuartii ESBL * monitor for final ID and sensitivities * Will continue IV meropenem will get final dose ertapenem Friday11/20/2024 <Derek Norris, - Last Filed: 11/18/24 15:23> (2) Chronic systolic (congestive) heart failure: Code(s): I50.22 - Chronic systolic (congestive) heart failure <Derek Norris, Student - Last Filed: 11/18/24 15:23> Status: Acute <Derek Norris, - Last Filed: 11/18/24 15:23> Assessment and Plan: no signs of acute exacerbation * continue Entresto * continue spironolactone and torsemide <Derek Norris, Student - Last Filed: 11/18/24 15:23> (3) Type 2 diabetes mellitus: Code(s): E11.9 - Type 2 diabetes mellitus without complications <Derek Norris, Student - Last Filed: 11/18/24 15:23> Status: Acute <Derek Norris, Student - Last Filed: 11/18/24 15:23> Assessment and Plan: * accu checks a.c. HS * Hypoglycemic protocol * Lantus 14 units daily * SSI * Diabetic diet <Derek Norris, Student - Last Filed: 11/18/24 15:23> (4) BPH (benign prostatic hyperplasia): Code(s): N40.0 - Benign prostatic hyperplasia without lower urinary tract symptoms <Derek Norris, Student - Last Filed: 11/18/24 15:23> Status: Suspected <Derek Norris, Student - Last Filed: 11/18/24 15:23> Assessment and Plan: Stable on current medications, will continue current treatment. * Continued with Proscar will add Flomax * Continue with postvoid bladder scans * No further retention <Derek Norris, Student - Last Filed: 11/18/24 15:23> (5) Dementia with psychosis: Code(s): F03.92 - Unspecified dementia, unspecified severity, with psychotic disturbance <Derek Norris, Student - Last Filed: 11/18/24 15:23> Status: Acute <Derek Norris, Student - Last Filed: 11/18/24 15:23> Assessment and Plan: Stable on current medications, will continue current treatment. * patient continued on Depakote for behaviors at correction * Meropenem reduces the efficacy of Depakote immensely and lowers the seizure threshold, patient started on PO Keppra x 7 days <Derek Norris Student - Last Filed: 11/18/24 15:23> Assessment and Plan: Code status: Full code per patient DVT prophylaxis: Eliquis Stress ulcer prophylaxis: Protonix 40 daily PT/OT notes: SNF/bed ridden Disposition: Patient continues admission to the medical unit currently being treated for ESBL in the urine will need to continue with IV meropenem due to sensitivities will return to half-way facility when medically stable. <Derek Norris Student - Last Filed: 11/18/24 15:23> Subjective Date/time seen: 11/18/24 14:27 <Derek Norris Student - Last Filed: 11/18/24 15:23> Interval history: No acute events overnight. Patient evaluated today in no acute distress however he is upset that he is still in the hospital. Patient removed his own IV catheter but after I discussed the importance of continued antibiotic therapy he allowed nursing to insert a new catheter. <Derek Norris Student - Last Filed: 11/18/24 15:23> 11/18/2024: No acute events overnight. Patient evaluated today in no acute distress however he is upset that he is still in the hospital. Patient removed his own IV catheter but after I discussed the importance of continued antibiotic therapy he allowed nursing to insert a new catheter. <Izzy Kennedy, CHIEF YEOMAN - Last Filed: 11/18/24 15:27> Review of Systems Review of Systems: All systems reviewed & are unremarkable except as noted in HPI and below <Derek Norris Student - Last Filed: 11/18/24 15:23> Psychiatric: Psychiatric: Reports behavioral changes (agitated) <Derek Norris Student - Last Filed: 11/18/24 15:23> Exam Const: General: comfortable <Derek W. Ketterer, Student - Last Filed: 11/18/24 15:23> HENMT: Ears: TM's normal bilaterally <Derek Norris Student - Last Filed: 11/18/24 15:23> Face/Nose/Sinus: Normal nares present <Derek Norris Student - Last Filed: 11/18/24 15:23> Mouth: Yes moist mucous membranes <Derek Norris Student - Last Filed: 11/18/24 15:23> Eyes: General: appearance normal, both eyes and all related structures <Derek Norris Student - Last Filed: 11/18/24 15:23> Sclera: sclerae normal <Derek Norris, Student - Last Filed: 11/18/24 15:23> Pupils: Equal, round and reactive pupils present <Derek Norris - Last Filed: 11/18/24 15:23> Neck: Neck: supple and no JVD <Derek Norris - Last Filed: 11/18/24 15:23> Resp: Effort & Inspection: normal respiratory effort <Derek Norris - Last Filed: 11/18/24 15:23> Cardio: Rate: regular rate <Derek Norris Student - Last Filed: 11/18/24 15:23> Rhythm: regular rhythm <Derek Norris - Last Filed: 11/18/24 15:23> GI: GI Palp: Yes Soft to palpation <Derek Norris - Last Filed: 11/18/24 15:23> Auscultation: normal bowel sounds <Derek Norris - Last Filed: 11/18/24 15:23> Skin: General skin exam: normal color <Derek Norris - Last Filed: 11/18/24 15:23> Neuro: General: gait normal (non-ambulatory) <Derek Norris Student - Last Filed: 11/18/24 15:23> Motor exam (neuro): Abnormal motor strength present (lower extremity weakness) <Derek Norris Student - Last Filed: 11/18/24 15:23> Extrem: General: normal to inspection <Derek Norris Student - Last Filed: 11/18/24 15:23> Psych: Other: agitated <Derek Norris Student - Last Filed: 11/18/24 15:23> Objective Data Vital Signs Vital Signs: Vital Signs - 24 hr 11/17/24 20:00 11/17/24 20:09 11/17/24 22:00 Temperature 98.5 F Pulse Rate 70 Respiratory Rate 20 Blood Pressure 97/51 L Pulse Oximetry 96 96 Oxygen Delivery Room Air Room Air 11/18/24 05:26 11/18/24 08:00 11/18/24 09:14 Temperature 98.0 F Pulse Rate 56 L 70 70 Respiratory Rate 16 Blood Pressure 108/56 L Pulse Oximetry 98 95 Oxygen Delivery Room Air <Derek Norris Student - Last Filed: 11/18/24 15:23> Intake/Output Intake/Output: Intake & Output 11/15/24 11/16/24 11/17/24 11/18/24 23:59 23:59 23:59 23:59 Intake Total 1520 1740 1690 700 Output Total 400 Balance 1520 1740 1290 700 <Derek Norris, Student - Last Filed: 11/18/24 15:23> Meds/Results Medications: Active Medications Generic Name Dose Route Start Last Admin Trade Name Freq PRN Reason Stop Dose Admin Albuterol 2 puff 11/14/24 13:48 Albuterol Sulfate (*Sp) Aerosol 1 Puff INHALATION Q4H PRN Shortness Of Breath Apixaban 5 mg 11/14/24 21:00 11/18/24 09:12 Apixaban 5 Mg Tablet PO 5 mg Q12HR KEITH Administration Bisacodyl 5 mg 11/14/24 13:48 Bisacodyl 5 Mg Tablet Ec PO DAILY PRN Constipation Citalopram Hydrobromide 10 mg 11/14/24 21:00 11/17/24 21:46 Citalopram Hydrobromide 10 Mg Tablet PO 10 mg HS KEITH Administration Dextrose 12.5 gm 11/14/24 14:14 Dextrose 50% 25 Gm/50 Ml Syringe IV PUSH PRN PRN Hypoglycemia Protocol Divalproex Sodium 125 mg 11/14/24 21:00 11/18/24 09:[address] 125 Mg Tabec PO 125 mg Q12H KEITH Administration Finasteride 5 mg 11/14/24 17:00 11/17/24 16:34 Finasteride 5 Mg Tablet PO 5 mg DAILY@1700 KEITH Administration Glucagon 1 mg 11/14/24 14:14 Glucagon For Inj 1 Mg Vial IM PRN PRN Hypoglycemia Protocol Glucose 15 gm 11/14/24 14:14 Glucose Oral Gel 15 Gm Of Glucse In 37.5 Gm Tube PO PRN PRN Hypoglycemia Protocol Dextrose 1,000 mls @ 100 mls/hr 11/14/24 14:14 Dextrose 5% 1,000 Ml IVPB PRN PRN Hypoglycemia Protocol Meropenem 1 gm/ Sodium 100 mls @ 200 mls/hr 11/16/24 22:25 11/18/24 13:37 Chloride IVPB 11/19/24 22:29 Infused Q8HR KEITH Infusion Ertapenem 1 gm/ Sodium 50 mls @ 100 mls/hr 11/20/24 08:00 Chloride IVPB 11/20/24 08:29 ONCE ONE Insulin Aspart 1 - 2 units 11/14/24 21:00 11/17/24 21:59 Insulin Aspart (*Bkc) 100 Units/Ml SUB-Q Not Given HS [facility] Protocol Insulin Aspart 2 - 5 units 11/14/24 17:00 11/18/24 12:02 Insulin Aspart (*Bkc) 100 Units/Ml SUB-Q Not Given TIDWM [facility] Protocol Insulin Glargine 14 units 11/14/24 21:00 11/17/24 22:01 Insulin Glargine (*Bkc) 100 Units/Ml SUB-Q 14 units HS KEITH Administration Levetiracetam 500 mg 11/16/24 09:30 11/18/24 09:13 Levetiracetam 500 Mg Tablet PO 11/22/24 21:01 500 mg Q12HR KEITH Administration Metoprolol Succinate 25 mg 11/15/24 09:00 11/18/24 09:14 Metoprolol Succinate Ext Rel 25 Mg Tabcr PO 25 mg DAILY KEITH Administration Methenamine 1 gm 11/14/24 17:00 11/18/24 09:14 Hippurate 1 Gram PO 12/14/24 16:59 1 gm Tablet BID KEITH Administration Pantoprazole Sodium 40 mg 11/15/24 09:00 11/18/24 09:15 Pantoprazole 40 Mg Tablet PO 40 mg QAM KEITH Administration Polyethylene Glycol 17 gm 11/15/24 09:00 11/18/24 09:16 Polyethylene Glycol 3350 17 Gm Powd.Pack PO 17 gm DAILY KEITH Administration Sacubitril/Valsartan 1 tab 11/14/24 21:00 11/18/24 09:16 Sacubitril/Valsartan 24-26 Mg Tablet PO 1 tab Q12H KEITH Administration Spironolactone 25 mg 11/15/24 09:00 11/18/24 09:16 Spironolactone 25 Mg Tablet PO 25 mg DAILY KEITH Administration Tamsulosin HCl 0.4 mg 11/17/24 16:00 11/18/24 09:16 Tamsulosin Hcl 0.4 Mg Capsule PO 0.4 mg QAM KEITH Administration Torsemide 10 mg 11/15/24 09:00 11/18/24 09:16 Torsemide 10 Mg Tablet PO 10 mg DAILY KEITH Administration <Derek Norris, Student - Last Filed: 11/18/24 15:23> Radiology Results: ITS Impressions Head CT 11/14/24 10:38 Impression: 1.No acute intracranial abnormality. <Derek Norris, Student - Last Filed: 11/18/24 15:23> Labs Labs: Laboratory Results - last 24 hr 11/17/24 11/17/24 11/18/24 17:09 21:48 07:57 WBC RBC Hgb Hct MCV MCH MCHC RDW Plt Count MPV Sodium Potassium Chloride Carbon Dioxide Anion Gap BUN Creatinine Estim Creat Clear Calc Estimated GFR Glucose POC Capillary Glucose 163 H 140 H 155 H Calcium Total Bilirubin AST ALT Alkaline Phosphatase Total Protein Albumin 11/18/24 11/18/24 09:03 11:58 WBC 8.0 RBC 3.95 L Hgb 11.9 L Hct 37.6 L MCV 95.2 MCH 30.1 MCHC 31.6 L RDW 13.5 Plt Count 192 MPV 10.7 H Sodium 138 Potassium 4.4 Chloride 101 Carbon Dioxide 33 H Anion Gap 4 BUN 26 H Creatinine 1.10 Estim Creat Clear Calc 58 Estimated GFR > 60 Glucose 152 H POC Capillary Glucose 186 H Calcium 9.1 Total Bilirubin 0.5 AST 19 ALT 11 Alkaline Phosphatase 79 Total Protein 7.1 Albumin 3.4 L <Derek Norris Student - Last Filed: 11/18/24 15:23> Quality VTE Prophylaxis VTE prophylaxis: pharmacologic ordered <Derek Norris, - Last Filed: 11/18/24 15:23> Hospitalist MIPS Advance Care Plan I have confirmed that the patient's Advanced Care Plan is present, code status is documented, or surrogate decision maker is listed in patient medical record.: Yes <Derek Norris, - Last Filed: 11/18/24 15:23> Medication Reconciliation I have utilized all available resources to obtain, update and review the patients current medications (includes all prescriptions, OTC, herbals, cannabis, and nutritional supplements).: Yes <Derek Norris Student - Last Filed: 11/18/24 15:23> The patient is not eligible for med reconciliation; the patient is in a emergent medical situation where delaying treatment would jeopardize the patients health.: No <Derek Norris, Student - Last Filed: 11/18/24 15:23>
[2024-11-18] MEDS: ALPRAZolam (*CRX) 0.5 MG TABLET PO (15:07)
[2024-11-18] MEDS: FINASTERIDE 5 MG TABLET PO (17:30)
[2024-11-18] MEDS: CITALOPRAM HYDROBROMIDE 10 MG TABLET PO (20:29)
[2024-11-18] MEDS: INSULIN GLARGINE (*BKC) 100 UNITS/ML 14 UNITS SUB-Q (20:36)
[2024-11-18 22:00] VITALS: BP 105/53; PULSE 71; RESP 16; TEMP 36.6; O2SAT 95
[2024-11-19] MEDS: MEROPENEM 1 GM in SODIUM CHLORIDE 0.9% IV 100 ML 200 ML IVPB ×3 (05:11→22:45)
[2024-11-19 06:00] VITALS: BP 106/61; PULSE 72; RESP 18; TEMP 36.6; O2SAT 99
[2024-11-19 06:59] LABS: Hematocrit 38.0 % (42.0-52.0); Hemoglobin 12.1 g/dL (14.0-18.0); Mean Corpuscular HGB Conc 31.8 g/dl (32-36); Mean Corpuscular Hemoglobin 30.5 pg (26-34); Mean Corpuscular Volume 95.7 fl (80-100); Platelet Count Result 200 k/mm3 (150-375); Red Blood Count 3.97 M/mm3 (4.6-6.20); White Blood Count 7.6 K/mm3 (4.5-10.0)
[2024-11-19 07:27] LABS: Alanine Aminotransferase 12 U/L (6-50); Albumin Level 3.5 g/dL (3.5-5.1); Alkaline Phosphatase 81 U/L (38-126); Anion Gap 8 mmol/L (4-12); Aspartate Amino Transferase 23 U/L (17-59); Bilirubin,Total 0.5 mg/dL (0.2-1.3); Blood Urea Nitrogen 28 mg/dL (9-20); Calcium 8.8 mg/dL (8.4-10.2); Carbon Dioxide 30 mmol/L (22-30); Chloride 99 mmol/L (98-107); Estimated CRCL calculation 59 ml/min; Estimated Glomerular Filt Rate > 60; Glucose 149 mg/dL (65-110); Magnesium 2.0 mg/dL (1.6-2.3); Potassium 3.9 mmol/L (3.4-5.0); Sodium 137 mmol/L (137-145); Total Protein 7.3 g/dL (6.3-8.2)
[2024-11-19] MEDS: TAMSULOSIN HCL 0.4 MG CAPSULE PO (09:40)
[2024-11-19] MEDS: TORSEMIDE 10 MG TABLET PO (09:40)
[2024-11-19] MEDS: PANTOPRAZOLE 40 MG TABLET PO (09:40)
[2024-11-19 09:41] VITALS: PULSE 70
[2024-11-19] MEDS: METOPROLOL SUCCINATE EXT REL 25 MG TABCR PO (09:41)
[2024-11-19] MEDS: DIVALPROEX SODIUM DR 125 MG TABEC PO ×2 (09:42→21:48)
[2024-11-19] MEDS: APIXABAN 5 MG TABLET PO ×2 (09:42→21:48)
[2024-11-19] MEDS: SACUBITRIL/VALSARTAN 24-26 MG TABLET 1 TAB PO ×2 (09:42→21:48)
[2024-11-19] MEDS: ALPRAZolam (*CRX) 0.5 MG TABLET PO ×2 (09:42→13:33)
[2024-11-19] MEDS: SPIRONOLACTONE 25 MG TABLET PO (09:42)
[2024-11-19] MEDS: INSULIN ASPART (*BKC) 100 UNITS/ML SUB-Q ×2 (12:22→21:49)
--- NOTE | 2024-11-19 13:32 | P.PNIM_ITS ---
Progress Note: A&P Assessment and Plan (1) Acute UTI: Code(s): N39.0 - Urinary tract infection, site not specified <Derek Norris, Student - Last Filed: 11/19/24 13:37> Status: Acute <Derek Norris, Student - Last Filed: 11/19/24 13:37> Assessment and Plan: Patient with recurrent UTIs previous history of ESBL * Blood culture NGTD * urine culture Providencia stuartii ESBL * monitor for final ID and sensitivities * Will continue IV meropenem will get final dose ertapenem Friday11/20/2024 <Derek Norris, - Last Filed: 11/19/24 13:37> (2) Chronic systolic (congestive) heart failure: Code(s): I50.22 - Chronic systolic (congestive) heart failure <Derek Norris, - Last Filed: 11/19/24 13:37> Status: Acute <Derek Norris, - Last Filed: 11/19/24 13:37> Assessment and Plan: no signs of acute exacerbation * continue Entresto * continue spironolactone and torsemide <Derek Norris, - Last Filed: 11/19/24 13:37> (3) Type 2 diabetes mellitus: Code(s): E11.9 - Type 2 diabetes mellitus without complications <Derek Norris, Student - Last Filed: 11/19/24 13:37> Status: Acute <Derek Norris, Student - Last Filed: 11/19/24 13:37> Assessment and Plan: * accu checks a.c. HS * Hypoglycemic protocol * Lantus 14 units daily * SSI * Diabetic diet <Derek Norris, Student - Last Filed: 11/19/24 13:37> (4) BPH (benign prostatic hyperplasia): Code(s): N40.0 - Benign prostatic hyperplasia without lower urinary tract symptoms <Derek Norris, Student - Last Filed: 11/19/24 13:37> Status: Suspected <Derek Norris, Student - Last Filed: 11/19/24 13:37> Assessment and Plan: Stable on current medications, will continue current treatment. * Continued with Proscar will add Flomax * Continue with postvoid bladder scans * No further retention <Derek Norris, Student - Last Filed: 11/19/24 13:37> (5) Dementia with psychosis: Code(s): F03.92 - Unspecified dementia, unspecified severity, with psychotic disturbance <Derek Norris, Student - Last Filed: 11/19/24 13:37> Status: Acute <Derek Norris, Student - Last Filed: 11/19/24 13:37> Assessment and Plan: Stable on current medications, will continue current treatment. * patient continued on Depakote for behaviors at half-way * Meropenem reduces the efficacy of Depakote immensely and lowers the seizure threshold, patient started on PO Keppra x 7 days <Derek Norris - Last Filed: 11/19/24 13:37> Assessment and Plan: Code status: Full code per patient DVT prophylaxis: Eliquis Stress ulcer prophylaxis: Protonix 40 daily PT/OT notes: SNF/bed ridden Disposition: Patient continues admission to the medical unit currently being treated for ESBL in the urine will need to continue with IV meropenem due to sensitivities will return to care home facility when medically stable. <Robyn Guerra - Last Filed: 11/19/24 13:37> Time Spent With Patient Time with patient: 25 - 35 minutes <Derek Norris Student - Last Filed: 11/19/24 13:37> Subjective Date/time seen: 11/19/24 13:32 <Derek Norris - Last Filed: 11/19/24 13:37> Interval history: No events reported overnight. Patient is no acute distress and is seen eating lunch at the time of my examination. Denies chest pain, shortness of breath and abdominal pain. <Derek Norris - Last Filed: 11/19/24 13:37> Review of Systems Review of Systems: All systems reviewed & are unremarkable except as noted in HPI and below <Derek Norris - Last Filed: 11/19/24 13:37> Exam Const: General: comfortable <Derek Norris - Last Filed: 11/19/24 13:37> HENMT: Ears: TM's normal bilaterally <Derek Norris - Last Filed: 11/19/24 13:37> Face/Nose/Sinus: Normal nares present <Derek Norris Student - Last Filed: 11/19/24 13:37> Mouth: Yes moist mucous membranes <Derek W. Ketterer, Student - Last Filed: 11/19/24 13:37> Eyes: General: appearance normal, both eyes and all related structures <Derek Morenoosmarroger, Student - Last Filed: 11/19/24 13:37> Sclera: sclerae normal <Derek Norris Student - Last Filed: 11/19/24 13:37> Pupils: Equal, round and reactive pupils present <Derek Morenoosmarroger Student - Last Filed: 11/19/24 13:37> Neck: Neck: supple and no JVD <Derek Morenoosmarroger, Student - Last Filed: 11/19/24 13:37> Resp: Effort & Inspection: normal respiratory effort <Derek Morenoosmarroger, Student - Last Filed: 11/19/24 13:37> Cardio: Rate: regular rate <Derek Morenoosmarroger - Last Filed: 11/19/24 13:37> Rhythm: regular rhythm <Derek Morenoosmarroger - Last Filed: 11/19/24 13:37> GI: Auscultation: normal bowel sounds <Derek Morenoosmarroger - Last Filed: 11/19/24 13:37> Skin: General skin exam: normal color <Derek Norris - Last Filed: 11/19/24 13:37> Neuro: General: Unable to assess gait (non-ambulatory) <Derek Morenoosmarroger Student - Last Filed: 11/19/24 13:37> Cranial nerves: Yes Equal, round and reactive pupils present <Derek Morenosteven - Last Filed: 11/19/24 13:37> Motor exam (neuro): Abnormal motor strength present (lower extremity weakness) <Derek AcevedoCullen Tiffaniesteven Student - Last Filed: 11/19/24 13:37> Extrem: General: normal to inspection <Derek AcevedoCullen Tiffaniesteven - Last Filed: 11/19/24 13:37> Psych: Affect: normal affect <Derek CurtisCullen Tiffaniesteven Student - Last Filed: 11/19/24 13:37> Attitude: cooperative <Derek CurtisCullen Norris Student - Last Filed: 11/19/24 13:37> Objective Data Vital Signs Vital Signs: Vital Signs - 24 hr 11/18/24 14:00 11/18/24 20:42 11/18/24 22:00 Temperature 98.6 F 97.8 F Pulse Rate 70 71 Respiratory Rate 20 16 Blood Pressure 150/96 H 105/53 L Pulse Oximetry 94 95 Oxygen Delivery Room Air 11/19/24 06:00 11/19/24 08:00 11/19/24 09:41 Temperature 97.9 F Pulse Rate 72 70 Respiratory Rate 18 Blood Pressure 106/61 Pulse Oximetry 99 Oxygen Delivery Room Air <Derek Norris, Student - Last Filed: 11/19/24 13:37> Intake/Output Intake/Output: Intake & Output 11/16/24 11/17/24 11/18/24 11/19/24 23:59 23:59 23:59 23:59 Intake Total 1740 1690 1770 680 Output Total 400 Balance 1740 1290 1770 680 <Derek Norris, Student - Last Filed: 11/19/24 13:37> Meds/Results Medications: Active Medications Generic Name Dose Route Start Last Admin Trade Name Freq PRN Reason Stop Dose Admin Albuterol 2 puff 11/14/24 13:48 Albuterol Sulfate (*Sp) Aerosol 1 Puff INHALATION Q4H PRN Shortness Of Breath Alprazolam 0.5 mg 11/18/24 14:59 11/19/24 09:42 Alprazolam (*Crx) 0.5 Mg Tablet PO 0.5 mg TID PRN Administration Anxiety Apixaban 5 mg 11/14/24 21:00 11/19/24 09:42 Apixaban 5 Mg Tablet PO 5 mg Q12HR KEITH Administration Bisacodyl 5 mg 11/14/24 13:48 Bisacodyl 5 Mg Tablet Ec PO DAILY PRN Constipation Citalopram Hydrobromide 10 mg 11/14/24 21:00 11/18/24 20:29 Citalopram Hydrobromide 10 Mg Tablet PO 10 mg HS KEITH Administration Dextrose 12.5 gm 11/14/24 14:14 Dextrose 50% 25 Gm/50 Ml Syringe IV PUSH PRN PRN Hypoglycemia Protocol Divalproex Sodium 125 mg 11/14/24 21:00 11/19/24 09:[address] 125 Mg Tabec PO 125 mg Q12H KEITH Administration Finasteride 5 mg 11/14/24 17:00 11/18/24 17:30 Finasteride 5 Mg Tablet PO 5 mg DAILY@1700 KEITH Administration Glucagon 1 mg 11/14/24 14:14 Glucagon For Inj 1 Mg Vial IM PRN PRN Hypoglycemia Protocol Glucose 15 gm 11/14/24 14:14 Glucose Oral Gel 15 Gm Of Glucse In 37.5 Gm Tube PO PRN PRN Hypoglycemia Protocol Dextrose 1,000 mls @ 100 mls/hr 11/14/24 14:14 Dextrose 5% 1,000 Ml IVPB PRN PRN Hypoglycemia Protocol Meropenem 1 gm/ Sodium 100 mls @ 200 mls/hr 11/16/24 22:25 11/19/24 05:41 Chloride IVPB 11/19/24 22:29 Infused Q8HR KEITH Infusion Ertapenem 1 gm/ Sodium 50 mls @ 100 mls/hr 11/20/24 08:00 Chloride IVPB 11/20/24 08:29 ONCE ONE Insulin Aspart 1 - 2 units 11/14/24 21:00 11/18/24 20:37 Insulin Aspart (*Bkc) 100 Units/Ml SUB-Q Not Given HS KEITH Protocol Insulin Aspart 2 - 5 units 11/14/24 17:00 11/19/24 12:22 Insulin Aspart (*Bkc) 100 Units/Ml SUB-Q 2 units TIDWM KEITH Administration Protocol Insulin Glargine 14 units 11/14/24 21:00 11/18/24 20:36 Insulin Glargine (*Bkc) 100 Units/Ml SUB-Q 14 units HS KEITH Administration Levetiracetam 500 mg 11/16/24 09:30 11/19/24 09:42 Levetiracetam 500 Mg Tablet PO 11/22/24 21:01 500 mg Q12HR KEITH Administration Metoprolol Succinate 25 mg 11/15/24 09:00 11/19/24 09:41 Metoprolol Succinate Ext Rel 25 Mg Tabcr PO 25 mg DAILY KEITH Administration Methenamine 1 gm 11/14/24 17:00 11/19/24 09:42 Hippurate 1 Gram PO 12/14/24 16:59 1 gm Tablet BID KEITH Administration Pantoprazole Sodium 40 mg 11/15/24 09:00 11/19/24 09:40 Pantoprazole 40 Mg Tablet PO 40 mg QAM KEITH Administration Polyethylene Glycol 17 gm 11/15/24 09:00 11/19/24 09:42 Polyethylene Glycol 3350 17 Gm Powd.Pack PO 17 gm DAILY KEITH Administration Sacubitril/Valsartan 1 tab 11/14/24 21:00 11/19/24 09:42 Sacubitril/Valsartan 24-26 Mg Tablet PO 1 tab Q12H KEITH Administration Spironolactone 25 mg 11/15/24 09:00 11/19/24 09:42 Spironolactone 25 Mg Tablet PO 25 mg DAILY KEITH Administration Tamsulosin HCl 0.4 mg 11/17/24 16:00 11/19/24 09:40 Tamsulosin Hcl 0.4 Mg Capsule PO 0.4 mg QAM KEITH Administration Torsemide 10 mg 11/15/24 09:00 11/19/24 09:40 Torsemide 10 Mg Tablet PO 10 mg DAILY KEITH Administration Trazodone HCl 50 mg 11/18/24 21:00 11/18/24 20:30 Trazodone Hcl 50 Mg Tablet PO 50 mg HS KEITH Administration <Derek Norris, Student - Last Filed: 11/19/24 13:37> Radiology Results: ITS Impressions Head CT 11/14/24 10:38 Impression: 1.No acute intracranial abnormality. <Derek Norris, Student - Last Filed: 11/19/24 13:37> Labs Labs: Laboratory Results - last 24 hr 11/18/24 11/18/24 11/19/24 16:46 20:19 06:00 WBC 7.6 RBC 3.97 L Hgb 12.1 L Hct 38.0 L MCV 95.7 MCH 30.5 MCHC 31.8 L RDW 13.5 Plt Count 200 MPV 10.8 H Sodium 137 Potassium 3.9 Chloride 99 Carbon Dioxide 30 Anion Gap 8 BUN 28 H Creatinine 1.09 Estim Creat Clear Calc 59 Estimated GFR > 60 Glucose 149 H POC Capillary Glucose 160 H 184 H Calcium 8.8 Magnesium 2.0 Total Bilirubin 0.5 AST 23 ALT 12 Alkaline Phosphatase 81 Total Protein 7.3 Albumin 3.5 11/19/24 11/19/24 07:56 12:08 WBC RBC Hgb Hct MCV MCH MCHC RDW Plt Count MPV Sodium Potassium Chloride Carbon Dioxide Anion Gap BUN Creatinine Estim Creat Clear Calc Estimated GFR Glucose POC Capillary Glucose 150 H 211 H Calcium Magnesium Total Bilirubin AST ALT Alkaline Phosphatase Total Protein Albumin <Robyn Guerra - Last Filed: 11/19/24 13:37> Quality VTE Prophylaxis VTE prophylaxis: pharmacologic ordered <Robyn Guerra - Last Filed: 11/19/24 13:37> Hospitalist [facility] Advance Care Plan I have confirmed that the patient's Advanced Care Plan is present, code status is documented, or surrogate decision maker is listed in patient medical record.: Yes <Robyn Guerra - Last Filed: 11/19/24 13:37> Medication Reconciliation I have utilized all available resources to obtain, update and review the patients current medications (includes all prescriptions, OTC, herbals, cannabis, and nutritional supplements).: Yes <Robyn Guerra - Last Filed: 11/19/24 13:37> The patient is not eligible for med reconciliation; the patient is in a emergent medical situation where delaying treatment would jeopardize the patients health.: No <Robyn Guerra - Last Filed: 11/19/24 13:37> Attestation Supervising Provider Attestation I have personally reviewed and assessed patient agree with the following documentation <Izzy Kennedy APRN - Last Filed: 11/19/24 15:11>
[2024-11-19 14:00] VITALS: BP 90/72; PULSE 70; RESP 20; TEMP 36.1; O2SAT 97
[2024-11-19 21:21] VITALS: BP 94/62; PULSE 70; RESP 20; TEMP 36.7; O2SAT 98
[2024-11-19] MEDS: CITALOPRAM HYDROBROMIDE 10 MG TABLET PO (21:48)
[2024-11-19] MEDS: INSULIN GLARGINE (*BKC) 100 UNITS/ML 14 UNITS SUB-Q (21:48)
[2024-11-20 06:00] VITALS: BP 105/53; PULSE 70; RESP 20; TEMP 36.4; O2SAT 96
[2024-11-20 06:38] LABS: Hematocrit 36.3 % (42.0-52.0); Hemoglobin 11.4 g/dL (14.0-18.0); Mean Corpuscular HGB Conc 31.4 g/dl (32-36); Mean Corpuscular Hemoglobin 30.3 pg (26-34); Mean Corpuscular Volume 96.5 fl (80-100); Platelet Count Result 186 k/mm3 (150-375); Red Blood Count 3.76 M/mm3 (4.6-6.20); White Blood Count 8.0 K/mm3 (4.5-10.0)
[2024-11-20 06:58] LABS: Alanine Aminotransferase 12 U/L (6-50); Albumin Level 3.4 g/dL (3.5-5.1); Alkaline Phosphatase 85 U/L (38-126); Anion Gap 7 mmol/L (4-12); Aspartate Amino Transferase 21 U/L (17-59); Bilirubin,Total 0.4 mg/dL (0.2-1.3); Blood Urea Nitrogen 30 mg/dL (9-20); Calcium 9.0 mg/dL (8.4-10.2); Carbon Dioxide 30 mmol/L (22-30); Chloride 100 mmol/L (98-107); Estimated CRCL calculation 64 ml/min; Estimated Glomerular Filt Rate > 60; Glucose 160 mg/dL (65-110); Magnesium 2.0 mg/dL (1.6-2.3); Potassium 3.9 mmol/L (3.4-5.0); Sodium 137 mmol/L (137-145); Total Protein 7.1 g/dL (6.3-8.2)
[2024-11-20 09:36] VITALS: PULSE 70
[2024-11-20] MEDS: PANTOPRAZOLE 40 MG TABLET PO (09:36)
[2024-11-20] MEDS: APIXABAN 5 MG TABLET PO (09:36)
[2024-11-20] MEDS: SPIRONOLACTONE 25 MG TABLET PO (09:36)
[2024-11-20] MEDS: METOPROLOL SUCCINATE EXT REL 25 MG TABCR PO (09:36)
[2024-11-20] MEDS: SACUBITRIL/VALSARTAN 24-26 MG TABLET 1 TAB PO (09:36)
[2024-11-20] MEDS: DIVALPROEX SODIUM DR 125 MG TABEC PO (09:37)
[2024-11-20] MEDS: TORSEMIDE 10 MG TABLET PO (09:37)
[2024-11-20] MEDS: TAMSULOSIN HCL 0.4 MG CAPSULE PO (09:37)
[2024-11-20] MEDS: ERTAPENEM SODIUM 1 GM in SODIUM CHLORIDE 0.9% IV 50 ML 100 ML IVPB (09:45)
--- NOTE | 2024-11-20 11:38 | P.DS_ITS ---
DS: Admitting Diagnosis Discharge Date 11/20/2024 Admitting Diagnosis AMS/UTI/CHF/dementia DS: Discharge Diagnosis Discharge Diagnosis (1) Acute UTI: Code(s): N39.0 - Urinary tract infection, site not specified Status: Acute (2) Chronic systolic (congestive) heart failure: Code(s): I50.22 - Chronic systolic (congestive) heart failure Status: Acute (3) Type 2 diabetes mellitus: Code(s): E11.9 - Type 2 diabetes mellitus without complications Status: Acute (4) BPH (benign prostatic hyperplasia): Code(s): N40.0 - Benign prostatic hyperplasia without lower urinary tract symptoms Status: Suspected (5) Dementia with psychosis: Code(s): F03.92 - Unspecified dementia, unspecified severity, with psychotic disturbance Status: Acute DS: Summary Hospital Course Reason for hospitalization: AMS/UTI/CHF/dementia Hospital Course: Admission: Patient was a 84 years old male with history of multiple medical problems resident of [facility] was admitted through the emergency room with complaints of mental status change. According to the ER report and family patient was doing fine until the day prior to arrival to the ED. He started having hallucination and mental status change. Patient was also reportedly abusive to the staff. In ER however patient was not abusive and was smiling and answering questions appropriately. According to the family this is happened the past whenever he developed urinary tract infection. At present time patient is lying comfortably in the bed and denies any complaints. He in the ER patient was found to have UTI and was given antibiotic and transferred to floor for further evaluation treatment. Hospital Course: Patient was admitted to the medical unit and started treatment for his recurrent UTI 's. Per previous cultures patient has history of ESBL and was transitioned to meropenem IV for coverage. Patient labs remained unremarkable and vitals stable. Patient follow-up culture was Providencia stuartii ESBL and he was continued on coverage for complicated UTI. Patient received final dose of Ertapenem day of discharge. was at bedside and had long conversation on ways to reduce recurrent UTIS. Patient does follow with urology outpatient and has scheduled appt after discharge. Patient was discharged back to SNF. Status at Discharge Functional status at discharge: wheelchair bound Overall status at discharge: patient is back to baseline Time Spent with Patient Time attestation: Total time spent providing and/or coordinating discharge services: Time spent: Greater than 30 minutes Exam Narrative: APPEARANCE: NAD NECK: Supple. RESPIRATORY: nonlabored. Clear to auscultation bilaterally CARDIOVASCULAR: RRR ABDOMINAL: Soft, nontender, nondistended, normal bowel sounds MUSCULOSKELETAL: Moves all extremities. Strength/ROM intact, bed-bound SKIN: Warm, dry. Normal Color DS: Data Data Completed and Pending Labs on day of discharge: Labs from last 24 hours 11/20/24 11/20/24 11/19/24 07:42 05:12 21:06 WBC 8.0 RBC 3.76 L Hgb 11.4 L Hct 36.3 L MCV 96.5 MCH 30.3 MCHC 31.4 L RDW 13.6 Plt Count 186 MPV 10.8 H Sodium 137 Potassium 3.9 Chloride 100 Carbon Dioxide 30 Anion Gap 7 BUN 30 H Creatinine 0.99 Estim Creat Clear Calc 64 Estimated GFR > 60 Glucose 160 H POC Capillary Glucose 196 H 222 H Calcium 9.0 Magnesium 2.0 Total Bilirubin 0.4 AST 21 ALT 12 Alkaline Phosphatase 85 Total Protein 7.1 Albumin 3.4 L 11/19/24 11/19/24 16:28 12:08 WBC RBC Hgb Hct MCV MCH MCHC RDW Plt Count MPV Sodium Potassium Chloride Carbon Dioxide Anion Gap BUN Creatinine Estim Creat Clear Calc Estimated GFR Glucose POC Capillary Glucose 185 H 211 H Calcium Magnesium Total Bilirubin AST ALT Alkaline Phosphatase Total Protein Albumin Preliminary micro results at discharge 11/14/24 10:37 Blood Culture - Preliminary Blood 11/14/24 10:13 Blood Culture - Preliminary Blood Discharge Plan Discharge Attending physician on discharge: Blossom Quinn Consulting providers: Derek Norris; Merrill Hummel; Destiny Ruvalcaba; Gavino Alvarez Discharging Clinician: Izzy Kennedy Anticipated Discharge Date/Time: 11/20/24 13:02 Patient Disposition: SNF Activity: as tolerated Diet: diabetic Discharge Instructions: 1). UTI (ESBL) * You have completed your antibiotic treatment during your hospitalization How can you care for yourself at home? ? Keep track of any new symptoms or changes in your symptoms. ? Rest until you feel better. ? Be safe with medicines. Take your medicines exactly as prescribed. Call your doctor if you think you are having a problem with your medicine. ? Do not drive after taking a prescription pain medicine. ? Ensure to follow-up with primary care physician as indicated and provide updated medication list provided to you at discharge. When should you call for help? Call 911 anytime you think you may need emergency care. For example, call if: ? You passed out (lost consciousness). Call your doctor now or seek immediate medical care if: ? You have new symptoms like fever, difficulty breathing, Chest pain, vomiting, or rash. ? You have new or different pain. ? You are confused and are having trouble thinking clearly. ? Your symptoms are getting worse. Watch closely for changes in your health, and be sure to contact your doctor if: ? You do not get better as expected. Patient Instructions: Urinary Tract Infection in Men (DC) Patient Language: Tongan Stand Alone Forms: General Discharge Information, Detention Discharge Follow-up/Referrals: Lanny,Jonah Arthur DO [Primary Care Provider, Unknown] - 2 Weeks Discharge Medications: New trazodone 50 mg Tablet 50 mg PO HS Qty: 30 0RF alprazolam 0.5 mg Tablet 0.5 mg PO TID PRN (Reason: Anxiety) Qty: 10 0RF tamsulosin 0.4 mg Capsule 0.4 mg PO QAM Qty: 30 0RF Continued divalproex [Depakote] 125 mg tablet,delayed release (DR/EC) 125 mg PO Q12H insulin glargine U-300 conc [Toujeo SoloStar U-300 Insulin] 300 unit/mL (1.5 mL) insulin pen 18 unit SUBCUT HS citalopram 10 mg tablet 10 mg PO .bedtime torsemide 10 mg tablet 10 mg PO DAILY spironolactone 25 mg tablet 25 mg PO DAILY methenamine hippurate 1 gram tablet 1 g PO BID metoprolol succinate 25 mg tablet extended release 24 hr 25 mg PO DAILY albuterol sulfate 90 mcg/actuation HFA aerosol inhaler 2 puff INHALATION Q4H PRN (Reason: shortness of breath) finasteride 5 mg tablet 5 mg PO .evening Eliquis 5 mg tablet 5 mg PO BID sacubitril-valsartan [Entresto] 24-26 mg tablet 1 tablet PO Q12H omeprazole 20 mg capsule,delayed release(DR/EC) 20 mg PO DAILY insulin aspart U-100 [Novolog U-100 Insulin aspart] 100 unit/mL solution 1 sliding scale dose subcut USEASDIRECTD Rx Instructions: If blood sugar less than 60 call MD. Blood sugar 170-200 give 2 units, blood sugar 201-250 give 4 units, blood sugar 251-300 give 6 units, blood sugar 301- 350 give 8 units, blood sugar 351-400 give 10 units if blood sugar is greater than 400 call MD. polyethylene glycol 3350 [Miralax] 17 gram/dose powder 17 g PO DAILY Qty: 119 0RF bisacodyl [Dulcolax (bisacodyl)] 5 mg tablet,delayed release (DR/EC) 5 mg PO ONCE PRN (Reason: constipation) Qty: 10 0RF No Action nitrofurantoin monohyd/m-cryst [Macrobid] 100 mg capsule 100 mg PO Q12H 5 Days Qty: 10 0RF Rx Instructions: must administer with a meal/food Date of admission: 11/15/24 08:45 Primary Care Provider: Lanny,Jonah Arthru Admitting Provider: Kirti Amaro Attending physician on admission: Izzy Kennedy Condition: Improved Quality VTE Prophylaxis VTE prophylaxis: pharmacologic ordered -Patient's previous records reviewed on admission -ER notes reviewed in detail on admission -discussed all findings and current treatment plan with patient/Family/POA -Consultations reviewed for recommendations -Patient's disposition for safe discharge discussed with bottle caser Dictation performed by Taggo direct speech recognition software, therefore assessor variants and typographical errors may occur. Hospitalist MIPS Heart Failure (Exclusion) Patient has history of Heart Transplant or Left Ventricular Assistive Device?: No IF YES, STOP HERE Heart Failure (Qualifier) Patient has current or prior documentation of LVEF less than or equal to 40%, or mod/servere depressed LVSF?: No IF NO, STOP HERE
[2024-11-20] MEDS: INSULIN ASPART (*BKC) 100 UNITS/ML SUB-Q (12:17)
[2024-11-20 15:33] LABS: Influenza A QL RT-PCR Negative (Negative); Influenza B QL RT-PCR Negative (Negative); RSV RNA, RT-PCR Negative (Negative); SARS-CoV-2 RNA PCR Negative (Negative)
[2024-11-20] MEDS: FINASTERIDE 5 MG TABLET PO (16:34)
== END 2024-11-20 17:40 | DRG 690 ==
LOC: ANHED 09:44 → ANH3MEDSUR 09:59
PROVIDERS: Nurse Practitioner Adult Health; Admitting Provider Internal Medicine; Emergency Provider Emergency Medicine; PCP Internal Medicine; Visit Provider Nurse Practitioner Family
DX: N39.0 Urinary tract infection, site not specified (principal); F03.92 Unspecified dementia, unspecified severity, with psychotic disturbance; I50.22 Chronic systolic (congestive) heart failure; E11.9 Type 2 diabetes mellitus without complications; D64.9 Anemia, unspecified; N40.0 Benign prostatic hyperplasia without lower urinary tract symptoms; R45.1 Restlessness and agitation; Z20.822 Contact with and (suspected) exposure to COVID-19; Z79.4 Long term (current) use of insulin; Z79.84 Long term (current) use of oral hypoglycemic drugs; Z87.440 Personal history of urinary (tract) infections; Z99.3 Dependence on wheelchair; B96.89 Other specified bacterial agents as the cause of diseases classified elsewhere; Z79.01 Long term (current) use of anticoagulants
CPT/HCPCS: 36415; 70450; 80053; 81001; 82948; 83735; 85025; 85027; 87040; 87086; 87186; 87637; 96365; 99285; A9270; G0378; J1335; J1815; J2185

== ENCOUNTER 2024-11-23 07:00 | Emergency (ER) | payer MEDICARE, SELFPAY ==
[2024-11-23] VITALS (32 sets, daily range): BP systolic 107–125; BP diastolic 55–86; PULSE 50–77; RESP 12–20; TEMP 36.7; O2SAT 96–100
--- NOTE | 2024-11-23 07:16 | ED.GENADULT ---
HPI - General Adult General Chief complaint: Unspecified Stated complaint: agitated Time Seen by Provider: 11/23/24 07:12 Source: patient and EMS Mode of arrival: EMS Limitations: no limitations History of Present Illness HPI narrative: 84 years old white male came from residential because got agitated and verbal altercation with staff. In the ED patient denying any symptoms. He is awake, alert oriented x4, denying any fever, chills, nausea, vomiting, chest pain, shortness of breath, back pain, abdominal pain or urinary symptoms., history of depression and anxiety Related Data Home Medications ?Medication ?Instructions ?Recorded ?Confirmed ?Last Taken ?Type divalproex 125 mg tablet,delayed 125 mg PO Q12H 10/29/23 11/14/24 Unknown History release (Depakote) albuterol sulfate 90 mcg/actuation 2 puff inhalation Q4H PRN 09/04/24 11/14/24 Unknown History aerosol inhaler shortness of breath apixaban 5 mg tablet (Eliquis) 5 mg PO BID 09/04/24 11/14/24 Unknown History citalopram 10 mg tablet 10 mg PO .bedtime 09/04/24 11/14/24 Unknown History finasteride 5 mg tablet 5 mg PO .evening 09/04/24 11/14/24 Unknown History insulin aspart U-100 100 unit/mL 1 sliding scale dose subcut 09/04/24 11/14/24 Unknown History subcutaneous solution (Novolog USEASDIRECTD U-100 Insulin aspart) methenamine hippurate 1 gram tablet 1 g PO BID 09/04/24 11/14/24 Unknown History metoprolol succinate 25 mg 25 mg PO DAILY 09/04/24 11/14/24 Unknown History tablet,extended release 24 hr omeprazole 20 mg capsule,delayed 20 mg PO DAILY 09/04/24 11/14/24 Unknown History release sacubitril 24 mg-valsartan 26 mg 1 tablet PO Q12H 09/04/24 11/14/24 Unknown History tablet (Entresto) spironolactone 25 mg tablet 25 mg PO DAILY 09/04/24 11/14/24 Unknown History torsemide 10 mg tablet 10 mg PO DAILY 09/04/24 11/14/24 Unknown History insulin glargine U-300 conc 300 18 unit subcut 11/14/24 11/14/24 Unknown History unit/mL (1.5 mL) subcutaneous pen (Toujeo SoloStar U-300 Insulin) Allergies Allergy/AdvReac Type Severity Reaction Status Date / Time cephalexin Allergy Unknown Verified 11/23/24 07:10 Review of Systems Review of Systems: All systems reviewed & are unremarkable except as noted in HPI and below PMFSH Social History Social History Smoking status: Never smoker Alcohol intake: never Substance use: never Substance use type: does not use Do You Feel Safe in your Home?: Yes Lack of Transportation: No Lack of Food: Never True Current Housing: I Have Housing Concerned About Future Housing: No Difficulty Paying Gas/Electric Bills: No Difficulty Paying for Meds: No Currently Unemployed: No Education: High School Diploma/GED Difficulty w/ Childcare or Family Care: No Spiritual care concerns: No Exam Narrative: General appearance: Well-developed, well-nourished , very pleasant, smiling and joking most of the time, does not look in pain or distress Skin: Normal color Head: Normocephalic, nontraumatic Eyes: Clear conjunctiva ENT: Oropharynx normal, ears normal, nose normal Neck: Supple, nontender Chest and respiratory: Airway patent, no respiratory distress, no accessory muscle use Heart: Regular rate/rhythm Abdomen: Soft, nontender, no organomegaly, quiet bowel sounds Vascular: Normal peripheral pulses, normal capillary refill. Musculoskeletal: Normal range of motion, nontender back Neurologic: Alert and oriented ?3, [employer] is normal as tested, no gross motor deficit Course Vital Signs Vital signs: Vital Signs Temperature 36.7 C 11/23/24 07:02 Pulse Rate 50 L 11/23/24 07:02 Respiratory Rate 16 11/23/24 07:02 Blood Pressure 107/55 L 11/23/24 07:02 Pulse Oximetry 100 11/23/24 07:02 Oxygen Delivery Room Air 11/23/24 07:02 Temperature 36.7 C 11/23/24 07:02 Pulse Rate 50 L 11/23/24 07:02 Respiratory Rate 16 11/23/24 07:02 Blood Pressure 107/55 L 11/23/24 07:02 Pulse Oximetry 100 11/23/24 07:02 Oxygen Delivery Room Air 11/23/24 07:02 Medical Decision Making MDM Narrative Medical decision making narrative: patient came with verbal altercation with some of the staff at the residential, in the ED patient currently awake, alert oriented x4, in no complain. Vital signs showing heart rate of 50 otherwise stable Physical examination is unremarkable Workup today showed asymptomatic urinary tract infection. I will discharge patient on Macrobid just in case of agitation secondary to urinary tract infection. Patient is allergic to to Cipro and penicillin Differential Diagnosis Differential Diagnosis: agitation, electrolyte imbalance, dehydration, urinary tract infection. History of depression anxiety and insomnia which could be the underlying cause of intermittent agitation Vital Signs Vital Signs: Vital Signs Temperature 36.7 C 11/23/24 07:02 Pulse Rate 50 L 11/23/24 07:02 Respiratory Rate 16 11/23/24 07:02 Blood Pressure 107/55 L 11/23/24 07:02 Pulse Oximetry 100 11/23/24 07:02 Oxygen Delivery Room Air 11/23/24 07:02 Temperature 36.7 C 11/23/24 07:02 Pulse Rate 50 L 11/23/24 07:02 Respiratory Rate 16 11/23/24 07:02 Blood Pressure 107/55 L 11/23/24 07:02 Pulse Oximetry 100 11/23/24 07:02 Oxygen Delivery Room Air 11/23/24 07:02 Lab Data 11/23/24 08:21 11/23/24 08:21 Labs: Lab Results 11/23/24 11/23/24 Range/Units 08:21 08:58 WBC 7.5 (4.5-10.0) K/mm3 RBC 3.86 L (4.6-6.20) M/mm3 Hgb 11.9 L (14.0-18.0) g/dL Hct 36.9 L (42.0-52.0) % MCV 95.6 (80-100) fl MCH 30.8 (26-34) pg MCHC 32.2 (32-36) g/dl RDW 13.2 (11.5-14.5) % Plt Count 195 (150-375) k/mm3 MPV 10.8 H (7.4-10.4) fl Immature Gran % (Auto) 0.4 (0-0.5) % Neut % (Auto) 69.6 (45.5-73.1) % Lymph % (Auto) 18.4 (18.3-44.2) % [place] % (Auto) 7.6 (2.6-8.5) % Eos % (Auto) 3.5 (0-4.4) % Baso % (Auto) 0.5 (0.2-1.2) % Lymph # (Auto) 1.37 (0.9-3.2) K/mm3 [place] # (Auto) 0.6 (0.1-0.6) K/mm3 Eos # (Auto) 0.3 (0-0.3) K/mm3 Baso # (Auto) 0.0 (0.0-0.1) K/mm3 Abs Immat Gran (auto) 0.03 (0.00-0.031) K/mm3 Absolute Neuts (auto) 5.2 (1.3-6.7) K/mm3 Absolute Nucleated RBC 0.000 (0.0-0.012) K/mm3 Nucleated RBC % 0.0 (0.0-0.2) % Sodium 135 L (137-145) mmol/L Potassium 4.2 (3.4-5.0) mmol/L Chloride 98 (98-107) mmol/L Carbon Dioxide 31 H (22-30) mmol/L Anion Gap 6 (4-12) mmol/L BUN 40 H D (9-20) mg/dL Creatinine 1.04 (0.7-1.3) mg/dL Estim Creat Clear Calc 54 ml/min Estimated GFR > 60 (59 - ) Glucose 166 H (65-110) mg/dL Calcium 9.1 (8.4-10.2) mg/dL Total Bilirubin 0.6 (0.2-1.3) mg/dL AST 26 (17-59) U/L ALT 15 (6-50) U/L Alkaline Phosphatase 92 (38-126) U/L Total Protein 7.6 (6.3-8.2) g/dL Albumin 3.6 (3.5-5.1) g/dL Urine Color Yellow (Yellow) Urine Appearance Clear (Clear) Urine pH 6.0 (5.0-9.0) Ur Specific [place] 1.013 (1.001-1.035) Urine Protein Negative (Negative) mg/dL Urine Glucose (UA) Negative (Negative) mg/dL Urine Ketones Negative (Negative) mg/dL Ur Blood (Man) Negative (Negative) Urine Nitrate Negative (Negative) Urine Bilirubin Negative (Negative) Urine Urobilinogen 0.2 (<2.0) mg/dL Leukocyte Esterase Rfl 1+ H (Negative) IMELDA/UL Urine RBC 0-2 (0-2) /hpf Urine WBC 11-20 H (0-3) /hpf Ur Squamous Epith Cells None seen (Few) /hpf Urine Bacteria None seen /hpf Urine Casts 0-2 Critical Care Time Critical Care Time Critical Care Time: No Discharge Plan Discharge Clinical Impression: Agitation, Acute UTI Patient Disposition: NH Long-Term/Asst Living Condition: Stable Instructions: Urinary Tract Infection in Men (ED), Urinary Tract Infection in Men (DC) Additional Instructions: Return if symptoms are worsening , call your family physician for appointment, take Tylenol as as needed for aches and pain, continue home medications. Patient Language: Macanese Prescriptions: New nitrofurantoin monohyd/m-cryst [Macrobid] 100 mg capsule 100 mg PO Q12H 5 Days Qty: 10 0RF Rx Instructions: must administer with a meal/food No Action divalproex [Depakote] 125 mg tablet,delayed release (DR/EC) 125 mg PO Q12H insulin glargine U-300 conc [Toujeo SoloStar U-300 Insulin] 300 unit/mL (1.5 mL) insulin pen 18 unit SUBCUT HS trazodone 50 mg Tablet 50 mg PO HS Qty: 30 0RF alprazolam 0.5 mg Tablet 0.5 mg PO TID PRN (Reason: Anxiety) Qty: 10 0RF tamsulosin 0.4 mg Capsule 0.4 mg PO QAM Qty: 30 0RF citalopram 10 mg tablet 10 mg PO .bedtime torsemide 10 mg tablet 10 mg PO DAILY spironolactone 25 mg tablet 25 mg PO DAILY methenamine hippurate 1 gram tablet 1 g PO BID metoprolol succinate 25 mg tablet extended release 24 hr 25 mg PO DAILY albuterol sulfate 90 mcg/actuation HFA aerosol inhaler 2 puff INHALATION Q4H PRN (Reason: shortness of breath) finasteride 5 mg tablet 5 mg PO .evening Eliquis 5 mg tablet 5 mg PO BID sacubitril-valsartan [Entresto] 24-26 mg tablet 1 tablet PO Q12H omeprazole 20 mg capsule,delayed release(DR/EC) 20 mg PO DAILY insulin aspart U-100 [Novolog U-100 Insulin aspart] 100 unit/mL solution 1 sliding scale dose subcut USEASDIRECTD Rx Instructions: If blood sugar less than 60 call MD. Blood sugar 170-200 give 2 units, blood sugar 201-250 give 4 units, blood sugar 251-300 give 6 units, blood sugar 301-350 give 8 units, blood sugar 351-400 give 10 units if blood sugar is greater than 400 call MD. polyethylene glycol 3350 [Miralax] 17 gram/dose powder 17 g PO DAILY Qty: 119 0RF bisacodyl [Dulcolax (bisacodyl)] 5 mg tablet,delayed release (DR/EC) 5 mg PO ONCE PRN (Reason: constipation) Qty: 10 0RF Follow-up/Referrals: Lanny,Jonah Arthur DO [Primary Care Provider, Unknown]
[2024-11-23 08:31] LABS: Hematocrit 36.9 % (42.0-52.0); Hemoglobin 11.9 g/dL (14.0-18.0); Immature Granulocyte Percent A 0.4 % (0-0.5); Lymphocytes Absolute Auto 1.37 K/mm3 (0.9-3.2); Mean Corpuscular HGB Conc 32.2 g/dl (32-36); Mean Corpuscular Hemoglobin 30.8 pg (26-34); Mean Corpuscular Volume 95.6 fl (80-100); Nucleated Red Blood Cells Absolute Auto 0.000 K/mm3 (0.0-0.012); Nucleated Red Blood Cells Perc 0.0 % (0.0-0.2); Platelet Count Result 195 k/mm3 (150-375); Red Blood Count 3.86 M/mm3 (4.6-6.20); White Blood Count 7.5 K/mm3 (4.5-10.0)
[2024-11-23 08:55] LABS: Alanine Aminotransferase 15 U/L (6-50); Albumin Level 3.6 g/dL (3.5-5.1); Alkaline Phosphatase 92 U/L (38-126); Anion Gap 6 mmol/L (4-12); Aspartate Amino Transferase 26 U/L (17-59); Bilirubin,Total 0.6 mg/dL (0.2-1.3); Blood Urea Nitrogen 40 mg/dL (9-20); Calcium 9.1 mg/dL (8.4-10.2); Carbon Dioxide 31 mmol/L (22-30); Chloride 98 mmol/L (98-107); Estimated CRCL calculation 54 ml/min; Estimated Glomerular Filt Rate > 60; Glucose 166 mg/dL (65-110); Potassium 4.2 mmol/L (3.4-5.0); Sodium 135 mmol/L (137-145); Total Protein 7.6 g/dL (6.3-8.2)
[2024-11-23 09:05] LABS: Add Urine Microscopic? YES; Appearance Urine Clear (Clear); Glucose Urine UA Negative (Negative); Leukocyte Esterase Ur 1+ LEU/UL (Negative); Nitrate Urine Negative (Negative); Non Pathogenic Casts 0-2; Specific Grav Ur 1.013 (1.001-1.035)
== END 2024-11-23 11:30 ==
PROVIDERS: Emergency Provider Emergency Medicine; PCP Internal Medicine
DX: N39.0 Urinary tract infection, site not specified (principal); R45.1 Restlessness and agitation
CPT/HCPCS: 36415; 80053; 81001; 85025; 87086; 99283

== ENCOUNTER 2025-02-26 19:15 | Emergency (ER) | payer MEDICARE, SELFPAY ==
--- NOTE | ~2025-02-26 | XR_ITS ---
XR chest 1V 02/26/2025 20:05 Indication: Status post fall. Procedure: AP portable chest Comparison: 09/04/2024 Findings: Cardiomegaly. Pacemaker leads are stable. There is patchy right-sided airspace disease, suspicious for pneumonia. Possible small effusions. No pneumothorax. No acute osseous abnormality. Impression: 1: Patchy right-sided airspace disease suspicious for pneumonia. Clinically correlate. Reviewed, dictated and finalized at location O. CLE DRIVER Impression: 1: Patchy right-sided airspace disease suspicious for pneumonia. Clinically cor relate.
--- NOTE | ~2025-02-26 | XR_ITS ---
Examination: XR pelvis 1-2V Clinical History: fall Comparison: CT abdomen pelvis 09/09/2024 Technique: 2 views right hip Findings/impression: 1. No fracture or dislocation right hip, given suboptimal positioning. Reviewed, dictated and finalized at location R. ING MACHINE OPERATOR AUTOMATIC
--- NOTE | ~2025-02-26 | XR_ITS ---
Examination: XR shoulder RT min 2V Clinical History: fall Comparison: None Technique: 2 views right shoulder Findings/impression: 1. No fracture or dislocation right shoulder given 2 view series. Reviewed, dictated and finalized at location R. SUPERVISOR
--- NOTE | ~2025-02-26 | CT_ITS ---
EXAMINATION: CT thoracic lumbar wo con DATE: 02/26/2025 20:20 INDICATION: Fall TECHNIQUE: Computed tomography (CT) of the thoracic and lumbar spine was performed without intravenous contrast. Automated exposure control and iterative reconstruction technique were employed. The dose-length product was 2133.96 mGy-cm. COMPARISON: None FINDINGS: Thoracic spine: 15 degree thoracic dextroscoliosis. Sagittal alignment is normal. There is an acute fracture extending obliquely from the anterosuperior to the posteroinferior across the T9 vertebral body. There is mild separation at the fracture plane along the superior endplate. No other acute fractures identified. Chronic T12 burst fracture with 40% anterior vertebral body height loss and with mild retropulsion resulting in minimal central canal stenosis at this level. No other fractures identified. Moderate thoracic spondylosis with bridging osteophytes at multiple levels consistent with diffuse idiopathic skeletal hyperostosis (DISH). Additional minimal central canal stenosis/with endplate osteophytes at T8-T9. Multilevel moderate thoracic facet osteoarthritis which contributes to minimal to mild central canal stenosis at a few levels most prominent bilaterally at T9-T10. Mild atelectasis at the medial left lower lobe and dependent right lower lobe. Additional discoid atelectasis in the right upper and lower lobes. 3-lead cardiac pacemaker with lead tips extending to the right atrium, right ventricle and coronary vein overlying the anterolateral wall of the left ventricle. Few small calcified gallstones in the dependent neck of the gallbladder. Lumbar spine: Alignment is normal. Vertebral body heights are normal. No acute fracture. There is bridging or nearly bridging osteophytes throughout the lumbar spine with developing fusion across the moderately narrowed L2-L3, L4-L5 and L5-S1 disc spaces. Mild disc height loss at T12-L1 and L3-L4. Multilevel severe lumbar facet osteoarthritis many with additional developing fusion across the margins. This contributes to moderate neural foraminal stenosis bilaterally at L3-L4 through L5-S1 with mild neural from stenosis bilaterally at L1-L2 and L2-L3. Ankylosis across the bilateral sacroiliac joints. There are couple surgical clips in the deep pelvis. IMPRESSION: 1. Minimally displaced oblique fracture extending across the T9 vertebral body. 2. Moderate thoracic and lumbar spondylosis with bridging osteophytes at multiple levels consistent with diffuse idiopathic skeletal hyperostosis (DISH). 3. Cholelithiasis. Reviewed, dictated and finalized at location A. GER OF WAREHOUSE IMPRESSION: 1. Minimally displaced oblique fracture extending across the T9 vertebral body. 2. Moderate thoracic and lumbar spondylosis with bridging osteophytes at multip le levels consistent with diffuse idiopathic skeletal hyperostosis (DISH). 3. Cholelithiasis.
--- NOTE | ~2025-02-26 | CT_ITS ---
CT HEAD NON-CONTRAST CT C-SPINE Clinical History: intractable new headache Comparison: CT brain 11/14/2024 Technique: Unenhanced axial images skull base to vertex. Coronal, sagittal reformats. Axial images thoracic inlet to skull base. Sagittal and coronal reformats. CT images acquired with automatic exposure control for dose reduction DLP: 908 mGy-cm Findings: Head: Age-related atrophy. Chronic infarct right basal ganglia. Chronic white matter microvascular ischemic changes Sulci, ventricles: Ventricles remain dilated slightly out of proportion to ventricles. No intracerebral hemorrhage. No evidence acute territorial infarct. No mass effect, midline shift, intra-/extra-axial fluid collection. Bony calvarium intact. Visualized paranasal sinuses: Clear. Mastoid air cells: Clear. C-spine: No acute fracture or listhesis. Vertebral bodies normal height and alignment. Moderate degenerative changes. Disc spaces maintained. Prevertebral soft tissues within normal limits. Visualized lung apices: Minimal fluid or pleural thickening right side. Visualized thyroid: Unremarkable. No enlarged cervical nodes. IMPRESSION: HEAD: 1. No acute intracranial findings. C-SPINE: 1. No acute fracture. Reviewed, dictated and finalized at location R. [employer] IMPRESSION: HEAD: 1. No acute intracranial findings. C-SPINE: 1. No acute fracture.
[2025-02-26 19:23] VITALS: BP 131/60; PULSE 71; RESP 18; O2SAT 100
--- NOTE | 2025-02-26 19:24 | ED.BACK ---
HPI - Back Pain/Injury General Chief Complaint: Back Pain/Injury Stated Complaint: Back Pain after fall Time Seen by Provider: 02/26/25 19:24 History of Present Illness HPI Narrative: 85-year-old male with numerous chronic medical conditions not limited to dementia presents by EMS from facility with concern for unwitnessed fall. Patient states ?I am going to run out of here?. He denies any pain. Specifically denies any leg pain abdominal pain headache shortness of breath extremity pain. No collateral history available at bedside. Per EMS report the patient was complaining of back pain right shoulder pain and may have hit his head and is on blood thinners Related Data Home Medications ?Medication ?Instructions ?Recorded ?Confirmed ?Last Taken ?Type divalproex 125 mg tablet,delayed 125 mg PO Q12H 10/29/23 11/14/24 Unknown History release (Depakote) albuterol sulfate 90 mcg/actuation 2 puff inhalation Q4H PRN 09/04/24 11/14/24 Unknown History aerosol inhaler shortness of breath apixaban 5 mg tablet (Eliquis) 5 mg PO BID 09/04/24 11/14/24 Unknown History citalopram 10 mg tablet 10 mg PO .bedtime 09/04/24 11/14/24 Unknown History finasteride 5 mg tablet 5 mg PO .evening 09/04/24 11/14/24 Unknown History insulin aspart U-100 100 unit/mL 1 sliding scale dose subcut 09/04/24 11/14/24 Unknown History subcutaneous solution (Novolog USEASDIRECTD U-100 Insulin aspart) methenamine hippurate 1 gram tablet 1 g PO BID 09/04/24 11/14/24 Unknown History metoprolol succinate 25 mg 25 mg PO DAILY 09/04/24 11/14/24 Unknown History tablet,extended release 24 hr omeprazole 20 mg capsule,delayed 20 mg PO DAILY 09/04/24 11/14/24 Unknown History release sacubitril 24 mg-valsartan 26 mg 1 tablet PO Q12H 09/04/24 11/14/24 Unknown History tablet (Entresto) spironolactone 25 mg tablet 25 mg PO DAILY 09/04/24 11/14/24 Unknown History torsemide 10 mg tablet 10 mg PO DAILY 09/04/24 11/14/24 Unknown History insulin glargine U-300 conc 300 18 unit subcut HS 11/14/24 11/14/24 Unknown History unit/mL (1.5 mL) subcutaneous pen (Toujeo SoloStar U-300 Insulin) Allergies Allergy/AdvReac Type Severity Reaction Status Date / Time cephalexin Allergy Unknown Verified 11/23/24 07:10 Review of Systems Review of Systems: All systems reviewed & are unremarkable except as noted in HPI and below PMFSH Social History Social History Smoking status: Never smoker Alcohol intake: never Substance use: never Substance use type: does not use Lack of Transportation: No Lack of Food: Never True Current Housing: I Have Housing Concerned About Future Housing: No Difficulty Paying Gas/Electric Bills: No Difficulty Paying for Meds: No Currently Unemployed: No Education: High School Diploma/GED Difficulty w/ Childcare or Family Care: No Spiritual care concerns: No Exam Narrative: EXAMINATION OF ORGAN SYSTEMS/BODY AREAS: Constitutional: Vital signs per nursing GENERAL:No acute distress, non-toxic appearing. HEAD: Normal with no signs of head trauma. EYES: EOMI, conjunctiva normal ENT: Hearing grossly intact LUNGS: Nonlabored breathing. Clear to auscultation bilaterally HEART: Regular rate and rhythm 2+ radial pulses ABD: Soft, nontender to palpation EXT: Patient is tender in the right shoulder but no obvious deformity muscle compartments are soft 2+ radial pulses. The right hip seems to be slightly tender palpation no foreshortening. Rest of the extremities were palpated without deformity or tenderness. There is some midline thoracic tenderness but no step-off no overlying skin changes. Chest wall stable pelvis stable. SKIN: No rashes or lesions. NEURO: Patient is alert oriented to self and place, is unsure of the year. Otherwise he follows commands moves all 4 extremities cranial nerves 2-12 intact. PSYCH: Normal affect Course Vital Signs Vital signs: Vital Signs Pulse Rate 71 02/26/25 19:23 Respiratory Rate 18 02/26/25 19:23 Blood Pressure 131/60 02/26/25 19:23 Pulse Oximetry 100 02/26/25 19:23 Oxygen Delivery Room Air 02/26/25 19:23 Temperature 36.8 C 02/26/25 21:43 Pulse Rate 70 02/26/25 22:04 Respiratory Rate 19 02/26/25 22:04 Blood Pressure 127/62 02/26/25 21:43 Pulse Oximetry 98 02/26/25 21:43 Oxygen Delivery Room Air 02/26/25 19:23 [facility] Differential Diagnosis Differential Diagnosis: 85-year-old male with numerous chronic medical conditions presents with right shoulder pain and back pain after what was reportedly unwitnessed fall at a long-term care facility. He appears to be at his baseline mental status per review the MR is no collateral bedside. Does appear to have a frequent history of complicated UTIs, given his tenderness on exam will get CT imaging of his entire spine head given he is on blood thinners and unclear whether he has had trauma. Right shoulder x-ray pelvis x-ray and chest x-ray and plain for evaluation for basic labs and imaging. Results and re-evaluation Patient's labs reviewed within acceptable limits. He has no bacteriuria urine with wbc's itches a chronic colonizer. He is without any urinary tract infection symptoms. His CT scan shows a an acute T9 vertebral body fracture. The patient is neurologically intact. I called and discussed the case with Dr. Kincaid, who agrees that given the patient's advanced age comorbidities and he is somewhat agitated at baseline with his dementia that a TLSO brace is probably not in his best interest. Will send the patient back to long-term care facility with the information for brace should his pain not be tolerable. Currently he feels improved he denies any back pain he wants go back home. Medical Records I have reviewed the following patient records and this information was taken into consideration when formulating the assessment and plan.: previous labs, previous ER visits, previous hospitalizations and previous clinic visits Lab Data [facility] Lab Attestation statement: I personally reviewed the patient's lab results. 02/26/25 20:23 02/26/25 22:12 Labs: Lab Results 02/26/25 02/26/25 02/26/25 Range/Units 20:23 22:12 22:23 WBC 10.7 H (4.5-10.0) K/mm3 RBC 4.25 L (4.6-6.20) M/mm3 Hgb 12.7 L (14.0-18.0) g/dL Hct 39.0 L (42.0-52.0) % MCV 91.8 (80-100) fl MCH 29.9 (26-34) pg MCHC 32.6 (32-36) g/dl RDW 14.2 (11.5-14.5) % Plt Count 228 (150-375) k/mm3 MPV 11.1 H (7.4-10.4) fl Immature Gran % (Auto) 0.4 (0-0.5) % Neut % (Auto) 71.4 (45.5-73.1) % Lymph % (Auto) 17.9 L (18.3-44.2) % Scott % (Auto) 7.4 (2.6-8.5) % Eos % (Auto) 2.3 (0-4.4) % Baso % (Auto) 0.6 (0.2-1.2) % Lymph # (Auto) 1.92 (0.9-3.2) K/mm3 Scott # (Auto) 0.8 H (0.1-0.6) K/mm3 Eos # (Auto) 0.3 (0-0.3) K/mm3 Baso # (Auto) 0.1 (0.0-0.1) K/mm3 Abs Immat Gran (auto) 0.04 H (0.00-0.031) K/mm3 Absolute Neuts (auto) 7.7 H (1.3-6.7) K/mm3 Absolute Nucleated RBC 0.000 (0.0-0.012) K/mm3 Nucleated RBC % 0.0 (0.0-0.2) % PT 14.9 H (11.1-14.7) Seconds INR 1.2 Sodium 135 L (137-145) mmol/L Potassium 4.8 (3.4-5.0) mmol/L Chloride 100 (98-107) mmol/L Carbon Dioxide 30 (22-30) mmol/L Anion Gap 5 (4-12) mmol/L BUN 36 H (9-20) mg/dL Creatinine 0.94 (0.7-1.3) mg/dL Estim Creat Clear Calc 58 ml/min Estimated GFR > 60 (59 - ) Glucose 186 H (65-110) mg/dL Calcium 9.1 (8.4-10.2) mg/dL Total Bilirubin 0.7 (0.2-1.3) mg/dL AST 26 (17-59) U/L ALT 14 (6-50) U/L Alkaline Phosphatase 89 (38-126) U/L Total Protein 7.9 (6.3-8.2) g/dL Albumin 3.8 (3.5-5.1) g/dL Lipase 35 (23-300) U/L Urine Color Yellow (Yellow) Urine Appearance Cloudy H (Clear) Urine pH 6.5 (5.0-9.0) Ur Specific [place] 1.014 (1.001-1.035) Urine Protein Negative (Negative) mg/dL Urine Glucose (UA) Negative (Negative) mg/dL Urine Ketones Negative (Negative) mg/dL Ur Blood (Man) Trace (Negative) Urine Nitrate Negative (Negative) Urine Bilirubin Negative (Negative) Urine Urobilinogen 0.2 (<2.0) mg/dL Add Ur Microanalysis Reviewed Leukocyte Esterase Rfl 3+ H (Negative) IMELDA/UL Urine RBC 0-2 (0-2) /hpf Urine WBC >100 H (0-3) /hpf Ur Squamous Epith Cells None seen (Few) /hpf Urine Bacteria Rare /hpf Urine Casts 0-2 Imaging Data Attestation: I personally reviewed and interpreted this imaging study as follows: Discharge Plan Discharge Clinical Impression: Fall, Acute UTI, Fracture of thoracic spine Patient Disposition: Home Condition: Improved Instructions: Antibiotic Form, Vertebral Compression Fracture (ED), Acute Low Back Pain (ED), Contusion in Adults (ED) Patient Language: Italian Prescriptions: No Action divalproex [Depakote] 125 mg tablet,delayed release (DR/EC) 125 mg PO Q12H insulin glargine U-300 conc [Toujeo SoloStar U-300 Insulin] 300 unit/mL (1.5 mL) insulin pen 18 unit SUBCUT HS trazodone 50 mg Tablet 50 mg PO HS Qty: 30 0RF alprazolam 0.5 mg Tablet 0.5 mg PO TID PRN (Reason: Anxiety) Qty: 10 0RF tamsulosin 0.4 mg Capsule 0.4 mg PO QAM Qty: 30 0RF nitrofurantoin monohyd/m-cryst [Macrobid] 100 mg capsule 100 mg PO Q12H 5 Days Qty: 10 0RF Rx Instructions: must administer with a meal/food citalopram 10 mg tablet 10 mg PO .bedtime torsemide 10 mg tablet 10 mg PO DAILY spironolactone 25 mg tablet 25 mg PO DAILY methenamine hippurate 1 gram tablet 1 g PO BID metoprolol succinate 25 mg tablet extended release 24 hr 25 mg PO DAILY albuterol sulfate 90 mcg/actuation HFA aerosol inhaler 2 puff INHALATION Q4H PRN (Reason: shortness of breath) finasteride 5 mg tablet 5 mg PO .evening Eliquis 5 mg tablet 5 mg PO BID sacubitril-valsartan [Entresto] 24-26 mg tablet 1 tablet PO Q12H omeprazole 20 mg capsule,delayed release(DR/EC) 20 mg PO DAILY insulin aspart U-100 [Novolog U-100 Insulin aspart] 100 unit/mL solution 1 sliding scale dose subcut USEASDIRECTD Rx Instructions: If blood sugar less than 60 call MD. Blood sugar 170-200 give 2 units, blood sugar 201-250 give 4 units, blood sugar 251-300 give 6 units, blood sugar 301-350 give 8 units, blood sugar 351-400 give 10 units if blood sugar is greater than 400 call MD. polyethylene glycol 3350 [Miralax] 17 gram/dose powder 17 g PO DAILY Qty: 119 0RF bisacodyl [Dulcolax (bisacodyl)] 5 mg tablet,delayed release (DR/EC) 5 mg PO ONCE PRN (Reason: constipation) Qty: 10 0RF Follow-up/Referrals: Lanny,Jonah Arthur DO [Primary Care Provider, Unknown] Time of Disposition: 23:40
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
--- OUTSIDE RECORDS SUMMARY | 2025-02-26 19:56 | XMS_ITS | Patient Health Record ---
Author Organization [facility] Address [address] [place] [address] [id number] Care Team Providers Care Inspector And Clerk Name Role Phone DR. EILEEN TAYLOR Primary Care Provider [phone] jessica Mya Unavailable [phone] Mona Angelo Unavailable [phone] MR. Vira Aleman Unavailable [phone] Allergies Allergen (clinical drug ingredient) Drug/Non Drug Allergy documented on EMR Reaction Allergy Type Onset Date Status cephalexin Cephalexin Unknown Drug Allergy Activ e Results Component Value Reference Range Notes Hemoglobin A1c Reviewed date:01/05/2025 02:43:51 PM Interpretation: Performing Lab: Notes/Report: CBC Reviewed date:06/16/2024 01:08:17 PM Interpretation: Performing Lab: Notes/Report: Comp. Metabolic Panel (14) Reviewed date:06/16/2024 01:08:35 PM Interpretation: Performing Lab: Notes/Report: Valproic Acid (Depakote),S Reviewed date:06/16/2024 01:08:56 PM Interpretation: Performing Lab: Notes/Report: CBC With Differential/Platel et Reviewed date:07/13/2024 12:18:59 PM Interpretation: Performing Lab: Notes/Report: Comp. Metabolic Panel (14) Reviewed date:07/13/2024 12:19:19 PM Interpretation: Performing Lab: Notes/Report: Valproic Acid (Depakote),S Reviewed date:07/13/2024 12:19:38 PM Interpretation: Performing Lab: Notes/Report: Reason For Referral Reason Esophageal Dysphagia Diagnosis 1 Esophageal dysphagia (R13.19) Referral Organization [facility] Referring Provider First Name EILEEN Referring Provider Last Name BRANDON Referring Provider Speciality Internal M edicine Referred Organization [facility] Referred Address [address] [place] [address],[facility], Referred Provider Specialty Ear, nose an d throat surgeon General Notes Mady Sandoval 025 11:09:54 AM CUSTOM DECORATING CONSULTANT >patient refused Referral Priority Routine Reason psych to eval and tr eat Diagnosis 1 Anxiety disorder, un specified (F41.9) Diagnosis 2 Unspecified dementia , unspecified severity, without behavioral disturbance, psychotic disturbance, mood disturbance, and anxiety (F03.90) Diagnosis 3 Altered mental statu s, unspecified (R41.82) Referral Organization [facility] Referring Provider First Name Mona Referring Provider Last Name Petey Referred Organization [facility] Referred Address [address],[facility], Referred Provider Specialty Psychiatry General Notes Mady Sandoval 025 03:51:26 PM CUSTOM DECORATING CONSULTANT >12/02/2024 12:17 PM POA stated she does not want resident to have Rexulti and does not want resident to see compression molding machine setter at this time. Cesilia García aware. Registered Nurse (RN) Melia Figueroa floor covering installer Priority Routine Medications Medication SIG (Take, Route, Frequency, Duration) Notes Start Date End Date Status Arginaid - Packet amt: 1 packet; oral With Meals Orally Active LORazepam 0.5 MG Tablet 1 tablet at bedt traci Orally Once a day; Duration: 14 days Give at 2100 02/12/2025 Active Eliquis 5 MG Tablet 1 tablet Orally twic e a day Active Docusate Sodium 100 MG Tablet 1 tablet as needed Orally Once a day Active CeleXA 10 MG Tablet 1 tablet Orally Once a day Active Methenamine Hippurate 1 GM Tablet 1 tablet Orally Twice a day Active Menthol (Topical Analgesic) 4 % Cream as directed Externally twice a day As needed Active Finasteride 5 MG Tablet 1 tablet Orally Once a day in the evening Active Entresto 24-26 MG Tablet 1 tablet Orally Twice a day Active Gabapentin 100 MG Capsule amt: 1 capsule; oral Special Instructions: Give 100mg PO daily at HS for diabetic neuropathy. At Bedtime Orally Once a day Active Omeprazole 20 MG Capsule Delayed Release 1 capsule 1/2 to 1 hour before morning meal Orally Once a day Active Milk of Magnesia 400 MG/5ML Suspension 15 mL Orally Once a day Active Metoprolol Succinate ER 25 MG Tablet Extended Release 24 Hour 1 tablet Orally Once a day Active Triamcinolone Acetonide 0.1 % Cream 1 application Externally twice a day As needed Active Torsemide 10 MG Tablet 1 tablet Orally O nce a day Active Systane 0.4-0.3 % Solution 1 drop in each eye Ophthalmic every 4 hrs As needed Active Spironolactone 25 MG Tablet 1 tablet Orally once a day Active ALPRAZolam 0.5 MG Tablet 1 tablet Orally daily at 10pm 02/11/2025 Active Toujeo SoloStar 300 UNIT/ML Solution Pen-injector inject 18 units Subcutaneous at bedtime Active Ipratropium Oglesby 0.02 % Solution amt: 1 vial; inhalation As Needed Inhalation Active NovoLOG 100 UNIT/ML Solution as directed Injection before meals per sliding scale 170 - 200 = 2 units, 201 - 250 = 4 units, 251 - 300 = 6 units, 301 - 350 = 8 units, 351 - 400 = 10 units, greater than 400 = call MD Active Calmoseptine 0.44-20.6 % Ointment as directed Externally twice a day As needed Active Bisacodyl 5 MG Tablet Delayed Release 1 tablet as needed Orally Once a day Active MiraLax 17 GM Packet 1 packet mixed with 8 ounces of fluid Orally Once a day Active Biofreeze Professional 5 % Gel apply to shoulders and arms Externally three times a day As needed Active Ondansetron 4 MG Tablet Disintegrating 1 tablet on the tongue and allow to dissolve Orally every 4 hrs As needed Active Albuterol 90 MCG/ACT Aerosol Solution 2 puffs Inhalation every 4 hrs As needed Active Acetaminophen 325 MG Tablet 2 tablets Orally three times a day As needed Active Melatonin 10 MG Tablet 1 capsule Orally nightly Active Social History Tobacco Use: Social History Observation Description Date Details (start date - stop date) Never Smoker NA - NA Social History Drug/Alcohol: Social Info Question Answer Notes Drugs Have you used drugs other than those for medical reasons in the past 12 months? No AUDIT-C (Standard) Did you have a drink containing alcohol in the past year? No Points 0 Interpretation Negative Tobacco Use: Social Info Question Answer Notes Tobacco Control (Standard) Tobacco use: Nonsmoker Tobacco use other than smoking: Are you an other tobac co user? No Problems Problem Type SNOMED Code ICD Code Onset Dates Problem Status W/U Status Risk Notes Problem Malignant neoplasm of prostate (111290642) Malignant neoplasm of prostate (C61) Active confirmed Problem Anemia (554115289) Anemia, unspecified (D64.9) Active confirmed Problem Thrombocytopenia (297721895) Thrombocytopenia, unspecified (D69.6) Active confirmed Problem Polyneuropathy due to type 2 diabetes mellitus (187856680) Type 2 diabetes mellitus with diabetic polyneuropathy (E11.42) Active confirmed Problem Anxiety disorder (274885144) Anxiety disorder, unspecified (F41.9) Active confirmed Problem Insomnia (245673765) Insomnia, unspecified (G47.00) Active confirmed Problem Tear film insufficiency (47670061) Dry eye syndrome of unspecified lacrimal gland (H04.129) Active confirmed Problem Essential hypertension (31624836) Essential (primary) hypertension (I10) Active confirmed Problem Atrial fibrillation (34769393) Unspecified atrial fibrillation (I48.91) Active confirmed Problem Chronic combined systolic and diastolic heart failure (785159246955614) 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) Active confirmed Problem Gastro-esophageal reflux disease without esophagitis (228368508) Gastro-esophageal reflux disease without esophagitis (K21.9) Active confirmed Problem Constipation (32381248) Constipation, unspecified (K59.00) Active confirmed Problem Hydronephrosis with renal and ureteral calculous obstruction (N13.2) Active confirmed Problem Obstructive uropathy (6302211) Other obstructive and reflux uropathy (N13.8) Active confirmed Problem Dysphagia (75105651) Dysphagia, unspecified (R13.10) Active confirmed Problem Oropharyngeal dysphagia (69959936) Dysphagia, oropharyngeal phase (R13.12) Active confirmed Problem Abnormal gait (39931348) Unsteadiness on feet (R26.81) Active confirmed Problem Abnormal gait (77215937) Other abnormalities of gait and mobility (R26.89) Active confirmed Problem Lack of coordination (505683661) Other lack of coordination (R27.8) Active confirmed Problem Altered mental status (972036871) Altered mental status, unspecified (R41.82) Active confirmed Problem Cognitive communication disorder (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) Cognitive communication deficit (R41.841) Active confirmed Problem Cardiac pacemaker in situ (730664230) Presence of cardiac pacemaker (Z95.0) Active confirmed Problem Benign prostatic hypertrophy without outflow obstruction (224342195) Benign prostatic hyperplasia without lower urinary tract symptoms (N40.0) Active confirmed Problem Anxiety due to dementia (finding) (089376428) Dementia in other diseases classified elsewhere, moderate, with anxiety (F02.B4) Active confirmed Problem Dementia (93567301) Unspecified dementia, unspecified severity, without behavioral disturbance, psychotic disturbance, mood disturbance, and anxiety (F03.90) Active confirmed Problem Dementia (disorder) (07977801) Unspecified dementia, unspecified severity, with agitation (F03.911) Active confirmed Vital Signs Heart Rate 76 /min 01/05/2025 Temperature 97.3 degrees Fahrenheit 01/05/2025 Respiratory Rate 20 /min 01/05/2025 Height-cm 190.5 cm 12/03/2024 Oximetry 94 % 01/05/2025 Blood pressure diastolic 65 mm Hg 01/05/2025 Weight-kg 109.77 kg 12/03/2024 Height 75 in 12/03/2024 Blood pressure systolic 118 mm Hg 01/05/2025 Weight 242 lbs 12/03/2024 BMI 30.24 kg/m2 12/03/2024 Encounters Encounter Location Date Provider Diagnosis [address] [address] 03/11/2024 EILEEN TAYLOR Essential (primary) hypertension I10 and Type 2 diabetes mellitus with diabetic polyneuropathy E11.[address] [address] 04/20/2024 Mona Angelo Unspecified dementia , unspecified severity, with agitation F03.911 ; Type 2 diabetes mellitus with diabetic polyneuropathy E11.42 ; Essential (primary) hypertension I10 ; Chronic combined systolic (congestive) and diastolic (congestive) heart failure I50.42 and Gastro-esophageal reflux disease without esophagitis K21.[address] [address] 04/22/2024 Mona Angelo UTI (urinary tract infection), uncomplicated N39.[address] [address] 05/22/2024 EILEEN TAYLOR Type 2 diabetes mellitus with diabetic polyneuropathy E11.42 and Essential (primary) hypertension I10 [address] [address] 06/18/2024 Mya Bc Type 2 diabetes mellitus with diabetic polyneuropathy E11.42 ; Essential (primary) hypertension I10 ; Chronic combined systolic (congestive) and diastolic (congestive) heart failure I50.42 ; Gastro-esophageal reflux disease without esophagitis K21.9 ; Unspecified dementia, unspecified severity, with agitation F03.911 ; Anxiety disorder, unspecified F41.9 ; Unspecified atrial fibrillation I48.91 and Other abnormalities of gait and mobility R26.[address] [address] 07/22/2024 EILEEN TAYLOR [place] [id number] 08/13/2024 Mona Angelo Unspecified dementia , unspecified severity, with agitation F03.911 ; Type 2 diabetes mellitus with diabetic polyneuropathy E11.42 ; Essential (primary) hypertension I10 ; Chronic combined systolic (congestive) and diastolic (congestive) heart failure I50.42 and Gastro-esophageal reflux disease without esophagitis K21.[address] [address] 09/15/2024 Mona Angelo Acute UTI (urinary tract infection) N39.0 ; Retention of urine, unspecified R33.9 and Altered mental status, unspecified R41.[address] [address] 09/17/2024 Mona Angelo Unspecified dementia , unspecified severity, with agitation F03.911 ; Type 2 diabetes mellitus with diabetic polyneuropathy E11.42 ; Essential (primary) hypertension I10 ; Chronic combined systolic (congestive) and diastolic (congestive) heart failure I50.42 ; Gastro-esophageal reflux disease without esophagitis K21.9 and Retention of urine, unspecified R33.[address] [address] 09/21/2024 Mona Angelo Unspecified dementia , unspecified severity, with agitation F03.911 ; Type 2 diabetes mellitus with diabetic polyneuropathy E11.42 ; Essential (primary) hypertension I10 ; Chronic combined systolic (congestive) and diastolic (congestive) heart failure I50.42 ; Gastro-esophageal reflux disease without esophagitis K21.9 and Dysphagia, unspecified R13.10 [place] [address] 09/23/2024 Mona Angelo Unspecified dementia , unspecified severity, with agitation F03.911 ; Type 2 diabetes mellitus with diabetic polyneuropathy E11.42 ; Essential (primary) hypertension I10 ; Chronic combined systolic (congestive) and diastolic (congestive) heart failure I50.42 ; Gastro-esophageal reflux disease without esophagitis K21.9 and Dysphagia, unspecified R13.10 [place] [address] 09/24/2024 [place] [address] 09/28/2024 Mona Angelo Unspecified dementia , unspecified severity, with agitation F03.911 ; Type 2 diabetes mellitus with diabetic polyneuropathy E11.42 ; Essential (primary) hypertension I10 ; Chronic combined systolic (congestive) and diastolic (congestive) heart failure I50.42 ; Gastro-esophageal reflux disease without esophagitis K21.9 and Dysphagia, unspecified R13.10 [place] [address] 09/30/2024 Mona Angelo Unspecified dementia , unspecified severity, with agitation F03.911 ; Type 2 diabetes mellitus with diabetic polyneuropathy E11.42 ; Essential (primary) hypertension I10 ; Chronic combined systolic (congestive) and diastolic (congestive) heart failure I50.42 ; Gastro-esophageal reflux disease without esophagitis K21.9 and Dysphagia, unspecified R13.10 [place] [address] 10/05/2024 Mona Angelo Unspecified dementia , unspecified severity, with agitation F03.911 ; Type 2 diabetes mellitus with diabetic polyneuropathy E11.42 ; Essential (primary) hypertension I10 ; Chronic combined systolic (congestive) and diastolic (congestive) heart failure I50.42 ; Gastro-esophageal reflux disease without esophagitis K21.9 and Dysphagia, unspecified R13.10 [place] [address] 10/07/2024 Mona Agnelo Unspecified dementia , unspecified severity, with agitation F03.911 ; Type 2 diabetes mellitus with diabetic polyneuropathy E11.42 ; Essential (primary) hypertension I10 ; Chronic combined systolic (congestive) and diastolic (congestive) heart failure I50.42 ; Gastro-esophageal reflux disease without esophagitis K21.9 and Dysphagia, unspecified R13.[address] [address] 10/12/2024 Mona Angelo Unspecified dementia , unspecified severity, with agitation F03.911 ; Type 2 diabetes mellitus with diabetic polyneuropathy E11.42 ; Essential (primary) hypertension I10 ; Chronic combined systolic (congestive) and diastolic (congestive) heart failure I50.42 ; Gastro-esophageal reflux disease without esophagitis K21.9 and Dysphagia, unspecified R13.10 [place] [id number] 11/04/2024 Mona Angelo Unspecified dementia , unspecified severity, with agitation F03.911 ; Type 2 diabetes mellitus with diabetic polyneuropathy E11.42 ; Essential (primary) hypertension I10 ; Chronic combined systolic (congestive) and diastolic (congestive) heart failure I50.42 ; Gastro-esophageal reflux disease without esophagitis K21.9 and Dysphagia, unspecified R13.10 [place] [id number] 11/26/2024 Mona Petey Acute UTI N39.0 and Behavior concern R46.89 [place] [id number] 12/01/2024 Mona Petey Acute UTI N39.0 ; Behavior concern R46.89 and Physical deconditioning R53.[address] [address] 12/03/2024 Chinedum [place]we Physical deconditioning R53.81 and Behavior concern R46.[address] [address] 12/15/2024 EILEEN TAYLOR [address] [address] 12/24/2024 Mona Angelo Unspecified dementia , unspecified severity, with agitation F03.[address] [address] 01/05/2025 Mona Angelo Unspecified dementia , unspecified severity, with agitation F03.911 ; Type 2 diabetes mellitus with diabetic polyneuropathy E11.42 ; Essential (primary) hypertension I10 ; Chronic combined systolic (congestive) and diastolic (congestive) heart failure I50.42 ; Gastro-esophageal reflux disease without esophagitis K21.9 and Dysphagia, unspecified R13.10 [place] [address] [address] 02/06/2025 EILEEN TAYLOR [place] [address] [address] 02/26/2025 [place] [address] [address] 02/27/2024 Mona Angelo [place] [address] [place] [address] 03/05/2024 EILEEN TAYLOR [place] [address] [address] 03/09/2024 EILEEN [place] [address] [address] 03/10/2024 [place] [address] [address] 03/12/2024 EILEEN [place] [address] [place] [address] 03/21/2024 ELIEEN [place] [address] [address] 04/06/2024 EILEEN TAYLOR [place] [address] [address] 04/14/2024 EILEEN [place] [address] [address] 04/18/2024 Mya Yancey [place] [address] [place] [id number] 04/19/2024 [place] [address] [place] [address] 04/20/2024 EILEEN [facility] [address] [id number] 04/20/2024 Mon[facility] [address] [id number] 04/22/2024 Mona Angelo [place] [address] [place] [id number] 05/12/2024 EILEEN TAYLOR [place] [address] [place] [address] 05/15/2024 [place] [address] [place] [address] 05/17/2024 Mon[facility] [address] [place] [id number] 06/07/2024 [facility]ILEEN [facility] [address] [place] [id number] 06/16/2024 [place] [address] [place] [address] 06/17/2024 Myajewell Yancey [place] [address] [place] [address] 06/18/2024 [place] [address] [place] [address] 06/24/2024 Mona Angelo [place] [address] [place] [address] 06/25/2024 Mona [place] [address] [place] [address] 07/21/2024 EILEEN TAYLOR [place] [address] [place] [address] 07/26/2024 Mona Davis [place] [address] [place] [address] 08/03/2024 EILEEN TAYLOR [place] [address] [place] [address] 08/13/2024 [facility] [address] [place] [id number] 08/13/2024 Mona Petey [place] [address] [place] [id number] 08/15/2024 Mya Bc [place] [address] [place] [address] 08/26/2024 EILEEN TAYLOR [place] [address] [place] [address] 09/09/2024 EILEEN TAYLOR [place] [address] [place] [address] 09/10/2024 EILEEN TAYLOR [place] [address] [place] [id number] 09/12/2024 EILEEN TAYLOR [place] [address] [place] [address] 09/15/2024 [facility] [address] [place] [id number] 09/15/2024 Mona Angelo [facility] [address] [place] [address] 09/17/2024 EILEEN TAYLOR [facility] [address] [id number] 09/17/2024 Mona Angelo [place] [address] [place] [address] 09/21/2024 EILEEN TAYLOR [place] [address] [place] [id number] 09/21/2024 EILEEN TAYLOR [facility] [address] [id number] 09/21/2024 Mona Angelo [place] [address] [place] [id number] 09/22/2024 EILEEN TAYLOR [place] [address] [place] [address] 09/23/2024 [place] [address] [place] [address] 09/28/2024 EILEEN TAYLOR [facility] [address] [id number] 09/28/2024 Mona [place] [address] [place] [address] 09/29/2024 EILEEN TAYLOR [facility] [address] [id number] 09/30/2024 Mona [place] [address] [place] [address] 10/05/2024 EILEEN TAYLOR [facility] [address] [id number] 10/05/2024 [place] [address] [place] [address] 10/06/2024 EILEEN TAYLOR [facility] [address] [id number] 10/07/2024 [place] [address] [place] [address] 10/09/2024 EILEEN TAYLOR [facility] [address] [id number] 10/12/2024 [place] [address] [place] [id number] 11/03/2024 EILEEN TAYLOR [facility] [address] [id number] 11/04/2024 [facility] [address] [place] [address] 11/13/2024 EILEEN Jimenes [facility] [address] [place] [address] 11/23/2024 EILEEN Jimenes [facility] [address] [place] [address] 11/25/2024 EILEEN Jimenes [place] [address] [address] [place] [address] 11/29/2024 Mona Angelo [facility] [address] [place] [address] 11/30/2024 EILEEN Jimenes [facility] [address] [place] [address] 12/02/2024 EILEEN Jimenes [place] [address] [address] [place] [address] 12/10/2024 EILEEN Jimenes [place] [address] [place] [address] 12/10/2024 EILEEN Jimenes [place] [address] [place] [address] 12/15/2024 EILEEN Jimenes [facility] [address] [place] [address] 12/15/2024 EILEEN Jimenes [facility] [address] [place] [address] 12/23/2024 EILEEN Jimenes [place] [address] [place] [address] 01/03/2025 EILEEN Jimenes [facility] [address] [place] [address] 01/03/2025 EILEEN Jimenes [facility] [address] [place] [address] 01/31/2025 EILEEN Jimenes [facility] [address] [place] [address] 02/01/2025 EILEEN Jimenes [facility] [address] [place] [address] 02/04/2025 Mona Angelo [facility] [address] [place] [address] 02/04/2025 Mona Angelo [facility] [address] [place] [address] 02/07/2025 [facility] [address] [id number] 02/11/2025 Mona Angelo [place] [address] [address] 02/12/2025 Mya Jimenes [place] [address] [address] 02/13/2025 EILEEN TAYLOR Assessments Encounter Date Diagnosis (ICD Code) Assessment Notes Treatment Notes Treatment Clinical Notes Section Notes 03/11/2024 Essential (primary) hypertension (ICD-10 - I10) 04/20/2024 Type 2 diabetes mellitus with diabetic polyneuropathy (ICD-10 - E11.42) No labs on file. Mangaged with insulin. Will order A1C on next visit. 04/20/2024 Unspecified dementia, unspecified severity, with agitation (ICD-10 - F03.911) A&Ox1, able to make needs known. No reports of behaviors or outburts. Well managed on current medication regimen. Continue with current treatment plan and monitoring. Draw Depakote level on next lab day. 04/22/2024 UTI (urinary tract infection), uncomplicated (ICD-10 - N39.0) He was seen in the ED on 04/18 for blood in his urine. UA showed copious WBC, bacteria, and blood, was sent for culture, but he was discharged on Bactrim 800/160 BID x 7days. He denies any urinary symptoms at this time. Encouraged to drinks lots of water. 05/22/2024 Type 2 diabetes mellitus with diabetic polyneuropathy (ICD-10 - E11.42) 06/18/2024 Type 2 diabetes mellitus with diabetic polyneuropathy (ICD-10 - E11.42) Continue to monitor closely. Next visit he'll need a hemoglobin A1C drawn. 06/18/2024 Essential (primary) hypertension (ICD-10 - I10) Continue to monitor closely. 09/15/2024 Acute UTI (urinary tract infection) (ICD-10 - N39.0) The patient was admitted form 10/04/2024 to 09/07/2024 for a UTI. He was discharged with a PICC line with IV antibiotics for four days. The patient removed PICC line by himself once arriving back to the facility and then medication was changed to IM. No signs and symptoms of UTI at this time. He does have a Tom in place. 09/17/2024 Type 2 diabetes mellitus with diabetic polyneuropathy (ICD-10 - E11.42) No labs on file. Mangaged with insulin. A1c that was ordered in April was never drawn. A1c has yet to be drawn. On , his glucose was 140. On next visit, I will order an A1c. 09/17/2024 Unspecified dementia, unspecified severity, with agitation (ICD-10 - F03.911) A&Ox1, able to make needs known. No reports of behaviors or outburts. Well managed on current medication regimen. Continue with current treatment plan and monitoring. 09/21/2024 Type 2 diabetes mellitus with diabetic polyneuropathy (ICD-10 - E11.42) No labs on file. Mangaged with insulin. A1c that was ordered in April was never drawn. A1c has yet to be drawn. On , his glucose was 140. Draw A1c on next lab date. 09/21/2024 Unspecified dementia, unspecified severity, with agitation (ICD-10 - F03.911) A&Ox1, able to make needs known. No reports of behaviors or outburts. Well managed on current medication regimen. Continue with current treatment plan and monitoring. 09/23/2024 Unspecified dementia, unspecified severity, with agitation (ICD-10 - F03.911) A&Ox1, able to make needs known. No reports of behaviors or outburts. Well managed on current medication regimen. Continue with current treatment plan and monitoring. 09/28/2024 Unspecified dementia, unspecified severity, with agitation (ICD-10 - F03.911) A&Ox1, able to make needs known. No reports of behaviors or outburts. Well managed on current medication regimen. Continue with current treatment plan and monitoring. 09/30/2024 Unspecified dementia, unspecified severity, with agitation (ICD-10 - F03.911) A&Ox1, able to make needs known. No reports of behaviors or outburts. Well managed on current medication regimen. Continue with current treatment plan and monitoring. 10/05/2024 Unspecified dementia, unspecified severity, with agitation (ICD-10 - F03.911) A&Ox1, able to make needs known. No reports of behaviors or outburts. Well managed on current medication regimen. Continue with current treatment plan and monitoring. 10/07/2024 Unspecified dementia, unspecified severity, with agitation (ICD-10 - F03.911) A&Ox1, able to make needs known. No reports of behaviors or outburts. Well managed on current medication regimen. Continue with current treatment plan and monitoring. 10/12/2024 Unspecified dementia, unspecified severity, with agitation (ICD-10 - F03.911) A&Ox1, able to make needs known. No reports of behaviors or outburts. Well managed on current medication regimen. Continue with current treatment plan and monitoring. 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 No reports of behaviors or outburts. Well managed on current medication regimen. Continue with current treatment plan and monitoring. 11/26/2024 Acute UTI (ICD-10 - N39.0) Patient was hospitalized on 11/15 to 11/20 for a UTI and received IV meropenem. Patient was also seen in the emergency room on 11/23 and was determined to have another UTI and was given p.o. Macrobid 100 mg q12 x5 days. Patient denies having any signs and symptoms of a UTI at this time. 11/26/2024 Behavior concern (ICD-10 - R46.89) Patient was sent to the hospital 2 times due to his behaviors. He has been cussing and yelling, as well as trying to hit staff and other residents. Continue to monitor patient and update with any changes. Patient is also followed by psych. 12/01/2024 Acute UTI (ICD-10 - N39.0) Patient was hospitalized on 11/24 to 11/20 for a UTI and received IV meropenem. Patient was also seen in the emergency room on 11/23 and was determined to have another UTI and was given p.o. Macrobid 100 mg q12 x5 days. Patient denies having any signs and symptoms of a UTI at this time. 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 Unable to express exactly what is not feeling right, provider tried to ask questions to figure out what was not feeling right, but patient became more agitated and asked provider to leave him alone. Staff report patient has not had much change in his agitation since the medication changes last week. Continue to monitor and update with any changes. 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 No reports of behaviors or outburts. Well managed on current medication regimen. Continue with current treatment plan and monitoring. 09/15/2024 Retention of urine, unspecified (ICD-10 - R33.9) Tom catheter was placed at hospital due to urine retention. Per hospital discharged, they said to remove in one week. Order given today to remove Tom for a voiding trial, if does not void in 8 hours, replace the Tom. Follow-up with urology. 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 Staff report patient has been agitated and aggressive towards staff and yells at other residents. Patient is no longer being followed by psych per family's request. Medications have been discontinued. Continue to monitor patient and update with any changes. 09/15/2024 Altered mental status, unspecified (ICD-10 - R41.82) The patient was seen at [facility] for a psych evaluation. No orders were given. The patient did not have any outbursts or issues while in the emergency room and they could not find anything. 01/05/2025 Type 2 diabetes mellitus with diabetic polyneuropathy (ICD-10 - E11.42) On 12/13/2024, A1c was 8.1%, which had increased since the 09/22/2024 of 7.9%. At the time of results, an order was given to increase his Toujeo insulin to 20 units at bedtime. To send a blood pressure log in one week and repeat A1c in three months. Blood glucose log has not been received. We will follow-up with staff. 12/01/2024 Behavior concern (ICD-10 - R46.89) Patient was sent to the hospital 2 times due to his behaviors. He has been cussing and yelling, as well as trying to hit staff and other residents. Continue to monitor patient and update with any changes. Patient is also followed by psych. 12/03/2024 Physical deconditioning (ICD-10 - R53.81) -continue PT/OT 12/03/2024 Behavior concern (ICD-10 - R46.89) Patient is followed by psych. 12/01/2024 Physical deconditioning (ICD-10 - R53.81) Patient is working with PT and OT for strengthening and mobility. He reports therapy is going good. Utilizes a wheelchair for ambulation. 11/04/2024 Type 2 diabetes mellitus with diabetic polyneuropathy (ICD-10 - E11.42) 09-22-24 A1C was 7.9%. Last A1C that was found before that was 11-04-23=6.9%. Order given 09/23/24 to increase long-acting insulin to 18 units at bedtime. Repeat A1c in three months. 10/12/2024 Type 2 diabetes mellitus with diabetic polyneuropathy (ICD-10 - E11.42) 09-22-24 A1C was 7.9%. Last A1C that was found before that was 11-04-23=6.9%. Order given 09/23/24 to increase long-acting insulin to 18 units at bedtime. Repeat A1c in three months. Blood glucose log was reviewed today. Sugars running in the upper 100s and then 200s. Order given to increase his sliding scale insulin by 1 unit per catagory and to send blood glucose in one week for review. 10/07/2024 Type 2 diabetes mellitus with diabetic polyneuropathy (ICD-10 - E11.42) 09-22-24 A1C was 7.9%. Last A1C that was found before that was 11-04-23=6.9%. Order given 09/23/24 to increase long-acting insulin to 18 units at bedtime. Repeat A1c in three months. Blood glucose log was reviewed today. Sugars running in the upper 100s and then 200s. Order given to increase his sliding scale insulin by 1 unit per catagory and to send blood glucose in one week for review. 10/05/2024 Type 2 diabetes mellitus with diabetic polyneuropathy (ICD-10 - E11.42) 09-22-24 A1C was 7.9%. Last A1C that was found before that was 11-04-23=6.9%. Order given 09/23/24 to increase long-acting insulin to 18 units at bedtime. Repeat A1c in three months. Blood glucose log was reviewed today. Sugars running in the upper 100s and then 200s. Order given to increase his sliding scale insulin by 1 unit per catagory and to send blood glucose in one week for review. 09/30/2024 Type 2 diabetes mellitus with diabetic polyneuropathy (ICD-10 - E11.42) 09-22-24 A1C was 7.9%. Last A1C that was found before that was 11-04-23=6.9%. Order given 09/23/24 to increase long-acting insulin to 18 units at bedtime. Send blood glucose log in one week and then repeat the A1C in three months. 09/28/2024 Type 2 diabetes mellitus with diabetic polyneuropathy (ICD-10 - E11.42) No labs on file. Managed with insulin. A1c that was ordered in April was never drawn. A1c has yet to be drawn. On , his glucose was 140. 7-16-25 A1C was 7.9%. Last A1C that was found before that was 11-04-23=6.9%. Order given 09/23/24 to increase long-acting insulin to 18 units at bedtime. Send blood glucose log in one week and then repeat the A1C in three months. 09/23/2024 Type 2 diabetes mellitus with diabetic polyneuropathy (ICD-10 - E11.42) No labs on file. Managed with insulin. A1c that was ordered in April was never drawn. A1c has yet to be drawn. On , his glucose was 140. 7-16-25 A1C was 7.9%. Last A1C that was found was 11-04-23=6.9%.Orde r given to increase long-acting insulin to 18 units at bedtime. Send blood glucose log in one week and then repeat the A1C in three months. 09/21/2024 Essential (primary) hypertension (ICD-10 - I10) BP stable. Well managed on current medication regimen. Continue with current treatment plan and monitoring. 09/17/2024 Essential (primary) hypertension (ICD-10 - I10) BP stable. Well managed on current medication regimen. Continue with current treatment plan and monitoring. 08/13/2024 Type 2 diabetes mellitus with diabetic polyneuropathy (ICD-10 - E11.42) No labs on file. Mangaged with insulin. A1c that was ordered in April was never drawn. We will have office send order to have A1c drawn on next lab day. 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 03/11/2024 Type 2 diabetes mellitus with diabetic polyneuropathy (ICD-10 - E11.42) 05/22/2024 Essential (primary) hypertension (ICD-10 - I10) 04/20/2024 Essential (primary) hypertension (ICD-10 - I10) BP stable. Well managed on current medication regimen. Continue with current treatment plan and monitoring. 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 Well managed on current medication regimen. Continue with current treatment plan and monitoring. 06/18/2024 Gastro-esophageal reflux disease without esophagitis (ICD-10 - K21.9) Continue to monitor closely. 08/13/2024 Essential (primary) hypertension (ICD-10 - I10) BP stable. Well managed on current medication regimen. Continue with current treatment plan and monitoring. 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 Well managed on current medication regimen. Continue with current treatment plan and monitoring. 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 Well managed on current medication regimen. Continue with current treatment plan and monitoring. 09/23/2024 Essential (primary) hypertension (ICD-10 - I10) BP stable. Well managed on current medication regimen. Continue with current treatment plan and monitoring. 09/28/2024 Essential (primary) hypertension (ICD-10 - I10) BP stable. Well managed on current medication regimen. Continue with current treatment plan and monitoring. 09/30/2024 Essential (primary) hypertension (ICD-10 - I10) BP stable. Well managed on current medication regimen. Continue with current treatment plan and monitoring. 10/05/2024 Essential (primary) hypertension (ICD-10 - I10) BP stable. Well managed on current medication regimen. Continue with current treatment plan and monitoring. 10/07/2024 Essential (primary) hypertension (ICD-10 - I10) BP stable. Well managed on current medication regimen. Continue with current treatment plan and monitoring. 10/12/2024 Essential (primary) hypertension (ICD-10 - I10) BP stable. Well managed on current medication regimen. Continue with current treatment plan and monitoring. 11/04/2024 Essential (primary) hypertension (ICD-10 - I10) BP stable. Well managed on current medication regimen. Continue with current treatment plan and monitoring. 01/05/2025 Essential (primary) hypertension (ICD-10 - I10) BP stable. Well managed on current medication regimen. Continue with current treatment plan and monitoring. 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 Well managed on current medication regimen. Continue with current treatment plan and monitoring. 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 Well managed on current medication regimen. Continue with current treatment plan and monitoring. 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 Well managed on current medication regimen. Continue with current treatment plan and monitoring. 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 Well managed on current medication regimen. Continue with current treatment plan and monitoring. 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 Well managed on current medication regimen. Continue with current treatment plan and monitoring. 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 Well managed on current medication regimen. Continue with current treatment plan and monitoring. 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 Well managed on current medication regimen. Continue with current treatment plan and monitoring. 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 Well managed on current medication regimen. Continue with current treatment plan and monitoring. 09/21/2024 Gastro-esophageal reflux disease without esophagitis (ICD-10 - K21.9) Denies any issues at this time. Well managed on current medication regimen. Continue with current treatment plan and monitoring. 09/17/2024 Gastro-esophageal reflux disease without esophagitis (ICD-10 - K21.9) Denies any issues at this time. Well managed on current medication regimen. Continue with current treatment plan and monitoring. 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 Well managed on current medication regimen. Continue with current treatment plan and monitoring. 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 04/20/2024 Gastro-esophageal reflux disease without esophagitis (ICD-10 - K21.9) Denies any issues at this time. Well managed on current medication regimen. Continue with current treatment plan and monitoring. 06/18/2024 Anxiety disorder, unspecified (ICD-10 - F41.9) Continue to monitor closely. 08/13/2024 Gastro-esophageal reflux disease without esophagitis (ICD-10 - K21.9) Denies any issues at this time. Well managed on current medication regimen. Continue with current treatment plan and monitoring. 09/17/2024 Retention of urine, unspecified (ICD-10 - R33.9) The patient's Tom was removed on 09/15/2024, no problems have been noted. Continue to monitor for any signs and symptoms of urine retention again. 09/21/2024 Dysphagia, unspecified (ICD-10 - R13.10) Staff reports that the patient has been coughing after getting medications and while eating. They did have a swallow study done, and they recommended that the patient see a specialist. Order given today for a referral for ENT due to the swallow study's recommendations. 09/23/2024 Gastro-esophageal reflux disease without esophagitis (ICD-10 - K21.9) Denies any issues at this time. Well managed on current medication regimen. Continue with current treatment plan and monitoring. 09/28/2024 Gastro-esophageal reflux disease without esophagitis (ICD-10 - K21.9) Denies any issues at this time. Well managed on current medication regimen. Continue with current treatment plan and monitoring. 09/30/2024 Gastro-esophageal reflux disease without esophagitis (ICD-10 - K21.9) Denies any issues at this time. Well managed on current medication regimen. Continue with current treatment plan and monitoring. 10/05/2024 Gastro-esophageal reflux disease without esophagitis (ICD-10 - K21.9) Denies any issues at this time. Well managed on current medication regimen. Continue with current treatment plan and monitoring. 10/07/2024 Gastro-esophageal reflux disease without esophagitis (ICD-10 - K21.9) Denies any issues at this time. Well managed on current medication regimen. Continue with current treatment plan and monitoring. 10/12/2024 Gastro-esophageal reflux disease without esophagitis (ICD-10 - K21.9) Denies any issues at this time. Well managed on current medication regimen. Continue with current treatment plan and monitoring. 11/04/2024 Gastro-esophageal reflux disease without esophagitis (ICD-10 - K21.9) Denies any issues at this time. Well managed on current medication regimen. Continue with current treatment plan and monitoring. 01/05/2025 Gastro-esophageal reflux disease without esophagitis (ICD-10 - K21.9) Denies any issues at this time. Well managed on current medication regimen. Continue with current treatment plan and monitoring. 01/05/2025 Dysphagia, unspecified (ICD-10 - R13.10) No complaints at this time. Staff has not noticed any coughing while eating or taking medications at this time. Continue to monitor and update with any changes. 11/04/2024 Dysphagia, unspecified (ICD-10 - R13.10) Staff reports that the patient has been coughing after getting medications and while eating. They did have a swallow study done, and they recommended that the patient see a specialist. Referral was sent for ENT, awaiting appointment at this time. 10/12/2024 Dysphagia, unspecified (ICD-10 - R13.10) Staff reports that the patient has been coughing after getting medications and while eating. They did have a swallow study done, and they recommended that the patient see a specialist. Referral was sent for ENT, awaiting appointment at this time. 10/07/2024 Dysphagia, unspecified (ICD-10 - R13.10) Staff reports that the patient has been coughing after getting medications and while eating. They did have a swallow study done, and they recommended that the patient see a specialist. Referral was sent for ENT, awaiting appointment at this time. 10/05/2024 Dysphagia, unspecified (ICD-10 - R13.10) Staff reports that the patient has been coughing after getting medications and while eating. They did have a swallow study done, and they recommended that the patient see a specialist. Referral was sent for ENT, awaiting appointment at this time. 09/30/2024 Dysphagia, unspecified (ICD-10 - R13.10) Staff reports that the patient has been coughing after getting medications and while eating. They did have a swallow study done, and they recommended that the patient see a specialist. Referral was sent for ENT, awaiting appointment at this time. 09/28/2024 Dysphagia, unspecified (ICD-10 - R13.10) Staff reports that the patient has been coughing after getting medications and while eating. They did have a swallow study done, and they recommended that the patient see a specialist. Referral was sent for ENT. 09/23/2024 Dysphagia, unspecified (ICD-10 - R13.10) Staff reports that the patient has been coughing after getting medications and while eating. They did have a swallow study done, and they recommended that the patient see a specialist. Referral sent for ENT. 06/18/2024 Unspecified atrial fibrillation (ICD-10 - I48.91) Continue to monitor closely. 06/18/2024 Other abnormalities of gait and mobility (ICD-10 - R26.89) Continue to monitor closely. 04/20/2024 Other Continue current treatment plan.Staff to continue to monitor and report any changes.Patient education provided and questions/concern s addressed.Follow up in one month unless necessary sooner. Please refer to facility EHR for current and accurate medication list and treatments. POA wanted to stop Vit D, iron, and florastor- Ok to D/C, and change Tylenol to PRN. 04/22/2024 Other Continue curren t treatment plan.Staff to continue to monitor and report any changes.Patient education provided and questions/concern s addressed.Follow up in one month unless necessary sooner. Please refer to facility EHR for current and accurate medication list and treatments. 06/18/2024 Other Continue to maintain the treatment plan as ordered. The next visit, he needs hemoglobin A1c ordered. Continue current treatment plan.Staff to continue to monitor and report any changes.Patient education provided and questions/concern s addressed.Follow up in one month unless necessary sooner.Reviewed HIPAA Right to Privacy Practices with patient/family/ca regiver. 08/13/2024 Other Continue curren t treatment plan.Staff to continue to monitor and report any changes.Patient education provided and questions/concern s addressed.Follow up in 2-4 weeks unless necessary sooner.Reviewed HIPAA Right to Privacy Practices with patient/family/ca regiver. 09/15/2024 Other Continue current treatment plan. Staff to continue to monitor and report any changes. Patient education provided and questions/concern s addressed. Follow up in 2-4 weeks unless necessary sooner. Reviewed HIPAA Right to Privacy Practices with patient/family/ca regiver. 09/17/2024 Other Continue current treatment plan. Staff to continue to monitor and report any changes. Patient education provided and questions/concern s addressed. Follow up in 1 week unless necessary sooner. Reviewed HIPAA Right to Privacy Practices with patient/family/ca regiver. 09/21/2024 Other Continue current treatment plan. Staff to continue to monitor and report any changes. Patient education provided and questions/concern s addressed. Follow up in 1 week unless necessary sooner. Reviewed HIPAA Right to Privacy Practices with patient/family/ca regiver. 09/23/2024 Other Continue current treatment plan. Staff to continue to monitor and report any changes. Patient education provided and questions/concern s addressed. Follow up in 1 week unless necessary sooner. Reviewed HIPAA Right to Privacy Practices with patient/family/ca regiver. 09/28/2024 Other Continue current treatment plan. Staff to continue to monitor and report any changes. Patient education provided and questions/concern s addressed. Follow up in 1 week unless necessary sooner. 09/30/2024 Other Continue current treatment plan. Staff to continue to monitor and report any changes. Patient education provided and questions/concern s addressed. Follow up in 1 week unless necessary sooner. 10/05/2024 Other Continue current treatment plan. Staff to continue to monitor and report any changes. Patient education provided and questions/concern s addressed. Follow up in 1 week unless necessary sooner. 10/07/2024 Other Continue current treatment plan. Staff to continue to monitor and report any changes. Patient education provided and questions/concern s addressed. Follow up in 1 week unless necessary sooner. 10/12/2024 Other Continue current treatment plan. Staff to continue to monitor and report any changes. Patient education provided and questions/concern s addressed. Follow up in 1 week unless necessary sooner. 11/04/2024 Other Continue current treatment plan. Staff to continue to monitor and report any changes. Patient education provided and questions/concern s addressed. Follow up in 2-4 weeks unless necessary sooner. 11/26/2024 Other Continue current treatment plan. Staff to continue to monitor and report any changes. Patient education provided and questions/concern s addressed. Follow up in 2-4 weeks unless necessary sooner. 12/01/2024 Other Continue current treatment plan. Staff to continue to monitor and report any changes. Patient education provided and questions/concern s addressed. Follow up in one week unless necessary sooner. 12/24/2024 Other Continue current treatment plan. Staff to continue to monitor and report any changes. Patient education provided and questions/concern s addressed. Follow up in 2-4 weeks unless necessary sooner. 01/05/2025 Other Continue current treatment plan. Staff to continue to monitor and report any changes. Patient education provided and questions/concern s addressed. Follow up in 2-4 weeks unless necessary sooner. Plan Of Treatment Next Appt Details Provider Name:Mona Angelo , 03/01/2025 06:00:00 AM, [address], [place], [address], Insurance Providers Payer Name Payer Address Payer Phone Subscriber Number Group Number Insured Name Patient Relationship to Insured Coverage Start Date Coverage End Date [employer] [place] [address] [facility] [id number] Maida Villareal Self - patient is the insured [facility] [address] [place] [address] [id number] Maida Villareal Self - patient is the insured Medical (General) History Medical History History ICD Code Unspecified dementia, unspec ified severity, without behavioral disturbance, psychotic disturbance, mood disturbance, and anxiety F03.90 Type 2 diabetes mellitus with diabetic p olyneuropathy E11.42 Chronic combined systolic (c ongestive) and diastolic (congestive) heart failure I50.42 Other obstructive and reflux uropathy N1 3.8 Cognitive communication deficit R41.841 Muscle weakness (generalized) M62.81 Other abnormalities of gait and mobility R26.89 Unspecified atrial fibrillation I48.91 Need for assistance with personal care Z 74.1 Encounter for adjustment and management of vascular access device Z45.2 Dysphagia, oropharyngeal phase R13.12 Anemia, unspecified D64.9 Insomnia, unspecified G47.00 Unspecified dementia, unspecified severi ty, with agitation F03.911 Edema, unspecified R60.9 Dry eye syndrome of unspecified lacrimal gland H04.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 Essential (primary) hypertension I10 Unspecified atrial fibrillation I48.91 Malignant neoplasm of prostate C61 Gastro-esophageal reflux disease without esophagitis K21.9 Constipation, unspecified K59.00 Thrombocytopenia, unspecified D69.6 Anxiety disorder, unspecified F41.9 Rash and other nonspecific skin eruption R21 Unsteadiness on feet R26.81 Hydronephrosis with renal and ureteral c alculous obstruction N13.2 Acute kidney failure, unspecified N17.9 Benign prostatic hyperplasia without low er urinary tract symptoms N40.0 Shortness of breath R06.02 Personal history of other venous thrombo sis and embolism Z86.718 Personal history of urinary (tract) infe ctions Z87.440 Presence of cardiac pacemaker Z95.0 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
--- OUTSIDE RECORDS SUMMARY | 2025-02-26 19:56 | XMS_ITS | Data Portability ---
Author Organization [place] - [facility], Main Office Address [address] [place] [address] Care Team Providers Care Real Estate Salesperson Name Role Phone [facility] - GCP OTHER BEV RAMOS Clinical Cardiac Electrophysiolo gist LANDON NAJERA Urologist MILLY SANCHEZ Coding Analyst BLAYNE HUNTER SI Neurologist Assessment Encounter Date [...] reduce health risks and promote healthy living. 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 Face to face discussion lasted for a duration of 19 minutes. [email or web address] Not available 05/19/2023 14:25:25 06/13/2023 [id number] EMR, VS and rece nt labs reviewed. [...] coordinating care and counseling of the patient/family. [email or web address] Not available 06/17/2023 15:13:29 06/20/2023 [id number] I spent 22 minut es counseling and [...] per Marissa. Not available 06/26/2023 18:42:52 07/07/2023 [id number] I spent 98 minut es providing care [...] Ajay Agrawal Internal Medicine, Encounter Date: 06/20/2023 Chairman & Ceo/dietitian Refer ral for Diabetes mellitus Referring Physician: Ajay Agrawal Internal Medicine, Encounter Date: 06/20/2023 Chairman & Ceo/dietitian Refer ral for Congestive heart failure Referring [...] of cardiac [place] [address] [place], [address], [facility] 06/20/2023 14:36:44 lumbar puncture completed Maximo Ken [employer] [place] [facility] [employer] [facility] 04/16/2023 14:54:56 tonsillectomy completed Maximo Ken [facility] 04/16/2023 14:55:09 [place] [address] [place], [address], [facility] 06/26/2023 10:59:35 Imaging Results None recorded. Procedure Notes None recorded. Medical Equipment None Reported. Allergies Allergen ID Allergen Name Allergen Category Reaction Reaction Severity Criticality Documentation Date Start Date Code Code System Note Provider Name and Address Organization Details Recorded Time 52907 cephalexi n medicatio n Not available Not [...] propionate 50 mcg/actuati on nasal spray,suspe nsion [place] 1 spray every day by intranasa l [...] (BMI) Body weight Heart rate Oxygen saturation Body temperature Systolic And Diastolic Provider Name and Address Organization Details Last Updated DateTime 4 190.5 cm 29.2 kg/m2 283641. 18 g 76 /min 98 % 98.6 [degF] 106/74 mm[Hg] JOEL ANGELES, AGNP-C [address] [place], [address], [place] [facility] 4 13:56:36 Date Recorded Body height Provider Name an d Address Organization Details Last Updated DateTime 05/27/2023 190.5 cm JOEL ANGELESSOMMER [address] [facility], [place], [address], [place] [facility] 05/27/2023 21:55:47 Date Recorded Body height Body mass index (BMI) Body weight Heart rate Oxygen saturation Respiratory rate Body temperature Systolic And Diastolic Provider Name and Address Organization Details Last Updated DateTime 4 190.5 cm 29.7 kg/m2 716223. 98 g 68 /min 97 % 20 /min 97.6 [degF] 108/60 mm[Hg] JOEL ANGELESSOMMER [address] [place], [address], [place] [facility] 4 11:35:54 Date Recorded Body height Provider Name an d Address Organization Details Last Updated DateTime 06/20/2023 190.5 [place] [address] [place], [address], [place] [facility] 06/20/2023 14:18:15 Date Recorded Body mass index (BMI) Body weight Heart rate Oxygen saturation Respiratory rate Body temperature Systolic And Diastolic Provider Name and Address Organization Details Last Updated DateTime 4 29.6 kg/m2 476666. 39 g 90 /min 97 % 18 /min 97.9 [degF] 110/58 mm[Hg] Alysha Marr [facility] 4 16:42:28 Date Recorded Body height Heart rate Oxygen saturation Respiratory rate Body temperature Body mass index (BMI) Body weight Systolic And Diastolic Provider Name and Address Organization Details Last Updated DateTime 4 190.5 cm 58 /min 95 % 18 /min 98.1 [degF] 3.4 kg/m2 37477.9 9 g 118/56 mm[Hg] Melida Akers [facility] 4 10:12:35 Social History Question Answer Notes LastModified by Organizat ion Details LastModified Time Tobacco Smoking Status Never Smoker Maximo Ken null, [place] [facility] 04/16/2023 14:59:25 Do You Have An Advance Directive? Yes Information not available 06/26/2023 What Is Your Code Status? 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 No [email or web address] Information not available 04/16/2023 Live Alone Or With Others? With Others [facility] Since 08/2022 Information not available 06/20/2023 Do You Have A Caregiver? Yes Information not available 06/20/2023 Do You Have A Medical Power Of Mat Sewer? Yes Information not available 06/26/2023 What Is Your Relationship Status? Marissa Information not available 06/20/2023 Sex: Unknown Functional Status Question Answer Note LastModified by Organizat ion Details LastModified Time Do you use any illicit or recreational drugs? No [email or web address] Information not available 04/16/2023 What is your level of alcohol consumption? None [email or web address] Information not available 04/16/2023 Mental Status None recorded. Family History Relationship Description Onset Age of this Age Resolved Age Notes LastModified by Organization Details LastModified Time Mother Primary malignant neoplasm of colon [email or web address] Not available 2023 14:55:43 Brother Type 2 diabetes mellitus Not available 2023 14:56:06 Brother Harmful pattern of use of alcohol [email or web address] Not available 2023 14:56:45 Brother Diabetes mellitus [email or web address] Not available 2023 14:58:27 Father Cerebrovascu lar accident [email or web address] Not available 09/2023 14:58:06 Father Heart disease [email or web address] Not available 2023 14:58:18 Sister Malignant neoplastic disease Not available 2023 14:58:55 Medical History Condition [...] Diagnosis SNOMED-CT Code Diagnosis ICD10 Code Diagnosis IMO Codes Diagnosis Note [id number] MAXIMO KEN NP [facility] ne: [address] [address] 04/14/2023 13:39:42 04/29/2023 12:14:05 Essential hypertension 72931869 I10 Metoprolol tartrate 25 mg immediate release - stopped at last hospital visit 42/5 hold parameter on Metoprolol , hold if SBP <100 .Fall in 2023 - ordered orthostati c VS x 1 check2/5 VS reviewed/s table. Asthenia 26690886 R53.1 weakness and incontinen ce - need for therapy.pa tieterese using wheelchair and sit/stand assist for transfers, non ambulatory recent hospitaliz ation and further worsening of weakness2/ 5 ordered PT/OT per patient and his 's request Infection caused by extended spectrum beta-lactamase producing Escherichia coli 113938661 Z16.12 recent hospitaliz ation for ESBL UTIthree admissions in March 2023 due to recurrent UTI06/2021 + UTI with hydronephr osis09/11/19 22 + UTI 3 >100,000 E.Coli ESBL confirmed, not sensitive to any PO, required IV antibiotic 03/27/23 >100,000 E.coli ESBL confirmed, not sensitive to any PO, required IV antibiotic s Open wound of right lower leg [id number] 0502358 S81.801D two dime sized wounds on frost [...] neuropathy due to type 2 diabetes mellitus 3318321799 107 E11.42 complicate d healing and therapyusi ng wheelchair consistent ly, not ambulating using sit to stand for all transfers Atrial fibrillation 4943 6004 I48.91 trend heart rateson Eliquis 5 mg BID, 81 mg ASA daily, Metoprolol XL 25 mg ext release tab daily.sees Cardiologi st at [facility] on 07/18/22 and possibly on 01/23/23, Dr. Gavino Dewey .persisten t [place] d CBC, Lipid panel in January 2023.check PT/INR Urinary incontinence 165 899429 R32 chronic urinary incontinen ceApril 2021 - admitted for AMS due to UTIretenti on was >1 L with hydronephr osis present, ended up with Tom for 2 months, removed in August 2021, incontinen ce of urine since.on Flomax 2021, Hiprex started with Vit C.sees Urologist Dr. Landon Najera at [facility] , last visit 11/19/22 for UTI, LUTS, and Prostate Cancer.On Tamsulosin (Flomax) 0.4 mg every evening, Vit C 500mg BID with his Methenamin e(Hiprex) 1 gm BID.F/U visit with Urology on 11/21/23 with Radha Rooney DNP at [facility] surgery in [place], [place] . 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 Permanent cardiac pacemaker [id number] 66788 Z95.0 06/24/23 Cardiac device check at 1:15pm with [facility] in [facility] Dr[facility] Bev Ramos[facility], at that time as well. Congestive heart failure 65261191 I50.9 Albuterol inhaler 2 puffs Q 4 hours PRN for wheezingon Lasix 40 mg Dailyon 20 meq KCL dailyon Entresto (sacubitnl -valsartan 24-26 mg tab) 1 tab BIDon Spironolac tone 25 mg tablet daily Vitamin D deficiency 347 87387 E55.9 On daily Vit D 5,000 units Chronic ur inary tract infection 539432062 N39.0 follow with Urologist - see aboveCipro 500mg daily BID Constipation 13601028 K5 9.00 on Colace 100mg dailyMiral ax 17 gm [id number] Milk of Magneium PRN daily04/14 and 04/16 denies constipati on Type 2 surya betes mellitus 89795481 E11.21 on Jardiance 10mg (empaglifl ozin) PO dailyon Lispro SSI starting at glucose 151, call if greater than 351 Benign pro static hyperplasia with outflow obstruction 948508360 N40.1 sees urologist - as noted aboveF/U visit with Dr.Paul Najera's [employer]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 Allergic rhinitis 643645 04 J30.9 on Albuterol PRNon Flonase 1 spray daily PRN Cough 29611036 R05.9 not sure if cough related to Allergies or CHF2/5 no cough heard today during examon Albuterol Inhaler PRNon Guifenesin 20mg/ml syrup, 10ml TID PRN Osteoarthritis 508768656 M19.90 bilateral kneesmenth ol 4% gel BID PRN to both knees Chronic hyponatremia 503 89863 E87.1 on sodium chloride 1 gm tab BID Insomnia 309884015 G47.0 0 discussed the importance of good [...] before bedtimeon Trazadone 25 mg tab nightly [id number] MAXIMO KEN, ARJUN [facility] ne: [address] [address] 04/16/2023 17:05:02 04/29/2023 12:15:43 Essential hypertension 93086425 I10 Metoprolol tartrate 25 mg immediate release - stopped at last hospital visit 42/5 hold parameter on Metoprolol , hold if SBP <100 .Fall in 2023 - ordered orthostati c VS x 1 check04/14 & 04/16 VS reviewed/s table. Asthenia 13039005 R53.1 weakness and incontinen ce - need for therapy.pa mohan using wheelchair and sit/stand assist for transfers, non ambulatory recent hospitaliz ation and further worsening of weakness04/14 ordered PT/OT per patient and his 's request Infection caused by extended spectrum beta-lactamase producing Escherichia coli 191072287 Z16.12 recent hospitaliz ation for ESBL UTIthree admissions in March 2023 due to recurrent UTI06/2021 + UTI with hydronephr osis09/11/19 22 + UTI 3 >100,000 E.Coli ESBL confirmed, not sensitive to any PO, required IV antibiotic 03/27/23 >100,000 E.coli ESBL confirmed, not sensitive to any PO, required IV antibiotic s2 no s/s of UTI today Open wound of right lower leg 1278200641 7233548 S81.801D two dime sized wounds on frost [...] neuropathy due to type 2 diabetes mellitus 3715432961 107 E11.42 complicate d healing and therapyusi ng wheelchair consistent ly, not ambulating using sit to stand for all transfers recent glucose levels reviewed, A1C ordered for 04/22 Atrial fibrillation 4943 6004 I48.91 trend heart rateson Eliquis 5 mg BID, 81 mg ASA daily, Metoprolol XL 25 mg ext release tab daily.sees Cardiologi at [facility] on 07/18/22 and possibly on 01/23/23, Dr. Gavino Dewey .persisten t [place] d CBC, Lipid panel in January 2023.check PT/INR2/7 VS reviewed, stable. Urinary incontinence 165 569497 R32 chronic urinary incontinen ceApril 2021 - admitted for AMS due to UTIretenti on was >1 L with hydronephr osis present, ended up with Tom for 2 months, removed in August 2021, incontinen ce of urine since.on Flomax 2021, Hiprex started with Vit C.sees Urologist Dr. Landon Najera at [facility] , last visit 11/19/22 for UTI, LUTS, and Prostate Cancer.On Tamsulosin (Flomax) 0.4 mg every evening, Vit C 500mg BID with his Methenamin e(Hiprex) 1 gm BID.F/U visit with Urology on 11/21/23 with Radha Rooney DNP at [facility] surgery in [place], [place] . 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, was [address] on [address] scan.2012 PSA 0.61/ PSA 0.96 Lower urin yrn tract symptoms due to benign prostatic hypertrophy 0015848781 9101 N40.1 see plan above for urinary retention and UTIs Dementia 48616111 F03.90 on Lexapro 20mg daily04/16 cooperativ e, participat ing in activities , following commands, pleasant Parkinson's disease 4904 9000 G20.A1 on Buspar 5 mg BIDon Depakote sprinkle/D ivalproex 125 mg BIDneed to check Depakote level on labs.04/16 cooperativ e, participat ing in activities , following commands, pleasant Permanent cardiac pacemaker 7890758747 65946 Z95.0 06/24/23 Cardiac device check at 1:15pm with [facility] in [facility] Dr. Bev Ramos, Cardiologi , at that time as well.04/16 VS reviewed, HR stable, regular Congestive heart failure 29876181 I50.9 Albuterol inhaler 2 puffs Q 4 hours PRN for wheezingon Lasix 40 mg Dailyon 20 meq KCL dailyon Entresto (sacubitnl -valsartan 24-26 mg tab) 1 tab BIDon Spironolac tone 25 mg tablet daily04/16 no wheezing, no crackles, no edema to BLEon daily weights Vitamin D deficiency 347 81979 E55.9 On daily Vit D 5,000 unitscheck ing level on labs 04/22 Chronic ur inary tract infection 364943126 N39.0 follow with Urologist - see aboveCipro 500mg daily BID completed now04/14 or 04/15 UA Flex collected and sent. 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 Allergic rhinitis 071818 04 J30.9 on Albuterol PRNon Flonase 1 spray daily PRN Cough 18305899 R05.9 not sure if cough related to Allergies or CHF2/5 no cough heard today during examon Albuterol Inhaler PRNon Guifenesin 20mg/ml syrup, 10ml TID PRN2/7 no cough today, no complaints or SOB Osteoarthritis 285929847 M19.90 bilateral kneesmenth ol 4% gel BID PRN to both knees Chronic hyponatremia 503 26064 E87.1 on sodium chloride 1 gm tab BID04/22 checking CMP Insomnia 965861681 G47.0 0 discussed the importance of good [...] before bedtimeon Trazadone 25 mg tab nightly [id number] MAXIMO KEN, ARJUN [facility] [place] ne: [address] [address] 04/18/2023 15:41:01 04/29/2023 12:16:41 Essential hypertension 11755864 I10 Metoprolol tartrate 25 mg immediate release - stopped at last hospital visit 42/5 hold parameter on Metoprolol , hold if SBP <100 .Fall in 2023 - ordered orthostati c VS x 1 check04/14 & 04/16 VS reviewed/s table. Asthenia 32476525 R53.1 weakness and incontinen ce - need for therapy.hina tient using wheelchair and sit/stand assist for transfers, non ambulatory recent hospitaliz ation and further worsening of weakness2/ ordered PT/OT per patient and his 's request Infection caused by extended spectrum beta-lactamase producing Escherichia coli 294880724 Z16.12 recent hospitaliz ation for ESBL UTIthree admissions in March 2023 due to recurrent UTI06/2021 + UTI with hydronephr osis09/11/19 22 + UTI02/20/ 3 >100,000 E.Coli ESBL confirmed, not sensitive to any PO, required IV antibiotic 03/27/23 >100,000 E.coli ESBL confirmed, not sensitive to any PO, required IV antibiotic s2 no s/s of UTI today Open wound of right lower leg 6358953956 0364008 S81.801D two dime sized wounds on frost [...] neuropathy due to type 2 diabetes mellitus 2211083180 107 E11.42 complicate d healing and therapyusi ng wheelchair consistent ly, not ambulating using sit to stand for all transfers2 /7 recent glucose levels reviewed, A1C ordered for 04/22 Atrial fibrillation 4943 6004 I48.91 trend heart rateson Eliquis 5 mg BID, 81 mg ASA daily, Metoprolol XL 25 mg ext release tab daily.sees Cardiologi st at [facility]iology on 07/18/22 and possibly on 01/23/23, Dr. Gavino Dewey .persisten t Oskar d CBC, Lipid panel in January 2023.check PT/INR04/16 and 04/18 Heart sounds rate and rhythm regular, VS reviewed, stable. Urinary incontinence 165 474040 R32 chronic urinary incontinen ceApril 2021 - admitted for AMS due to UTIretenti on was >1 L with hydronephr osis present, ended up with Tom for 2 months, removed in August 2021, incontinen ce of urine since.on Flomax 2021, Hiprex started with Vit C.sees Urologist Dr. Landon Najera at [facility] , last visit 11/19/22 for UTI, LUTS, and Prostate Cancer.On Tamsulosin (Flomax) 0.4 mg every evening, Vit C 500mg BID with his Methenamin e(Hiprex) 1 gm BID.F/U visit with Urology on 11/21/23 with Radha Rooney DNP at [facility] surgery in [place], [place] . 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, was [address] scan.2012 PSA 0.61/ PSA 0.96 Lower urin yrn tract symptoms due to benign prostatic hypertrophy 2489353955 9101 N40.1 see plan above for urinary retention and UTIs Dementia 88292487 F03.90 on Lexapro 20mg daily04/16 cooperativ e, participat ing in activities , following commands, pleasant Parkinson's disease 4904 9000 G20.A1 on Buspar 5 mg BID - 04/18trial weanto 2.5mg Buspar BID.on Depakote sprinkle/D ivalproex 125 mg BID - now off Depakotene ed to check Depakote level on labs.04/16 cooperativ e, participat ing in activities , following commands, pleasant Permanent cardiac pacemaker 2433534693 79160 Z95.0 06/24/23 Cardiac device check at 1:15pm with [facility] in [facility] Dr. eBv Ramos, Cardiologi , at that time as well.04/16 VS reviewed, HR stable, regular Congestive heart failure 54663545 I50.9 Albuterol inhaler 2 puffs Q 4 hours PRN for wheezingon Lasix 40 mg Dailyon 20 meq KCL dailyon Entresto (sacubitnl -valsartan 24-26 mg tab) 1 tab BIDon Spironolac tone 25 mg tablet daily04/16 no wheezing, no crackles, no edema to BLEon daily weights Vitamin D deficiency 347 92412 E55.9 On daily Vit D 5,000 unitscheck ing level on labs 04/22 Chronic ur inary tract infection 023539740 N39.0 follow with Urologist - see aboveCipro 500mg daily BID completed now04/14 or 04/15 UA Flex collected and sent. 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 Allergic rhinitis 966153 04 J30.9 on Albuterol PRNon Flonase 1 spray daily PRN - discontinu ed, not using, polypharma cy Cough 07147784 R05.9 not sure if cough related to Allergies or CHF/5 no cough heard today during examon Albuterol Inhaler PRNon Guifenesin 20mg/ml syrup, 10ml TID PRN - discontinu ed, not using, polypharma cy04/16 no cough today, no complaints or SOB Osteoarthritis 758732464 M19.90 bilateral kneesmenth ol 4% gel BID PRN to both knees - discontinu ed, not using, polypharma cy Chronic hyponatremia 503 84460 E87.1 on sodium chloride 1 gm tab BID04/22 checking CMP Insomnia 561589807 G47.0 0 discussed the importance of good [...] nightly Gastroesop hageal reflux disease without esophagitis 489372027 K21.9 protonix 40 mg qday - started [facility] as prophylact ic for stress ulcers due to lots of meds and stress of hospitaliz ation/nichols sitioning. would Discontinu e on 05/09/23 or before if patient continues to improve. [id number] MAXIMO KEN NP [facility] ne: [address] [address] 04/28/2023 11:13:28 05/14/2023 02:15:01 Essential hypertension 59875389 I10 Metoprolol tartrate 25 mg immediate release - stopped at last hospital visit 42/5 hold parameter on Metoprolol , hold if SBP <100 .Fall in 2023 - ordered orthostati c VS x 1 check2/5 & 2/ VS reviewed/s table. Asthenia 17492602 R53.1 weakness and incontinen ce - need for therapy.pa tient using wheelchair and sit/stand assist for transfers, non ambulatory recent hospitaliz ation and further worsening of weakness04/14 ordered PT/OT per patient and his 's request Infection caused by extended spectrum beta-lactamase producing Escherichia coli 674178332 Z16.12 recent hospitaliz ation for ESBL UTIthree [...] antibiotic s due to 04/22 cx results. 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 Montgomery who [...] scheduled. Open wound of right lower leg [id number] 6069898 S81.801D two dime sized wounds on frost [...] neuropathy due to type 2 diabetes mellitus 2867132402 107 E11.42 complicate d healing and therapyusi ng wheelchair consistent ly, not ambulating using sit to stand for all transfers recent glucose levels reviewed, A1C ordered for 04/22 Atrial fibrillation 4943 6004 I48.91 trend heart rateson Eliquis 5 mg BID, 81 mg ASA daily, Metoprolol XL 25 mg ext release tab daily.sees Cardiologi st at [facility] on 07/18/22 and possibly on 01/23/23, Dr. Gavino Dewey .persisten t Oskar d CBC, Lipid panel in January 2023.check PT/INR/ and 04/18 Heart sounds rate and rhythm regular, VS reviewed, stable. Urinary incontinence 165 540503 R32 chronic urinary incontinen ceApril 2021 - admitted for AMS due to UTIretenti on was >1 L with hydronephr osis present, ended up with Tom for 2 months, removed in August 2021, incontinen ce of urine since.on Flomax 2021, Hiprex started with Vit C.sees Urologist Dr. Landon Najera at [facility] , last visit 11/19/22 for UTI, LUTS, and Prostate Cancer.On Tamsulosin (Flomax) 0.4 mg every evening, Vit C 500mg BID with his Methenamin e(Hiprex) 1 gm BID.05/25/ 4 CT abd/pelvis scheduled. F/U visit with Urology on 11/21/23 with Radha Rooney DNP at [facility] surgery in [place], [place] . 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, was [address] on June [address] scan.2012 PSA 0.61/ PSA 0.96 Lower urin yrn tract symptoms due to benign prostatic hypertrophy 7375316911 9101 N40.1 see plan above for urinary retention and UTIs Dementia 12197248 F03.90 on Lexapro 20mg daily04/16 cooperativ e, participat ing in activities , following commands, pleasant Parkinson's disease 4904 9000 G20.A1 on Buspar 5 mg BID - 04/18trial weanto 2.5mg Buspar BID.on Depakote sprinkle/D ivalproex 125 mg BID - now off Depakotene ed to check Depakote level on labs.04/16 cooperativ e, participat ing in activities , following commands, pleasant Permanent cardiac pacemaker [id number] 04013 Z95.0 06/24/23 Cardiac device check at 1:15pm with [facility] in [facility] Dr. Bev Ramos, [facility], at that time as well.04/16 VS reviewed, HR stable, regular Congestive heart failure 36483259 I50.9 Albuterol inhaler 2 puffs Q 4 hours PRN for wheezingon Lasix 40 mg Dailyon 20 meq KCL dailyon Entresto (sacubitnl -valsartan 24-26 mg tab) 1 tab BIDon Spironolac tone 25 mg tablet daily04/16 no wheezing, no crackles, no edema to BLEon daily weights Vitamin D deficiency 347 26341 E55.9 On daily Vit D 5,000 unitscheck ing level on labs 04/22 Chronic ur inary tract infection 366474823 N39.0 follow with Urologist - see aboveCipro 500mg daily BID completed now04/14 or 04/15 UA Flex collected and sent. Constipation 26396104 K5 9.00 on Colace 100mg dailyMiral ax 17 gm [id number] Milk of Magneium PRN daily - discontinu ed, not using, polypharma cy04/14 and 04/16 denies constipati on Type 2 surya betes mellitus 56527286 E11.21 on Jardiance 10mg (empaglifl ozin) PO dailyon Lispro SSI starting at glucose 151, call if greater [place] [address]/16 recent glucose levels reviewed, A1C ordered for 04/22 Benign pro static hyperplasia with outflow obstruction 615544405 N40.1 sees urologist - as noted aboveF/U visit with Dr.Paul Najera's [employer]ICE Radha on 11/21/23tak es Proscar (Finasteri de) 5 mg nightlyOn Tamsulosin (Flomax) 0.4 mg every evening, Vit C 500mg BID with his Hiprex.meek l try to get liquid Vit C as patient has trouble getting down large vit C tabs.Methe namine(Hip pamela) 1 gm BID - per Urology orders.05/08 10/31 CT abd/pelvis scheduled. Allergic rhinitis 377699 04 J30.9 on Albuterol PRNon Flonase 1 spray daily PRN - discontinu ed, not using, polypharma cy Cough 36534038 R05.9 not sure if cough related to Allergies or CHF2/5 no cough heard today during examon Albuterol Inhaler PRNon Guifenesin 20mg/ml syrup, 10ml TID PRN - discontinu ed, not using, polypharma cy04/16 no cough today, no complaints or SOB04/28/23 resolved. Osteoarthritis 390674433 M19.90 bilateral kneesmenth ol 4% gel BID PRN to both knees - discontinu ed, not using, polypharma cy Chronic hyponatremia 503 83820 E87.1 on sodium chloride 1 gm tab BID04/22 checking CMP Insomnia 433955734 G47.0 0 discussed the importance of good [...] nightly Gastroesop hageal reflux disease without esophagitis 440275420 K21.9 protonix 40 mg qday - started [facility] as prophylact ic for stress ulcers due to lots of meds and stress of hospitaliz ation/nichols sitioning. would Discontinu e on 05/09/23 or before if patient continues to improve. [id number] JOEL ANGELES, SHEBA-Bello [facility] Arlen ne: [address] [address] 05/19/2023 13:53:59 05/19/2023 14:39:19 Adult health examination 728896165 Z00.01 Routine labs ordered and reviewed, continue supportive care on long-term care unit Congestive heart failure 65918716 I50.9 no lower extremity edema on exam, recent increase in Lasix dose, stable today, continue b.i.d. Lasix 40 mg and Entresto, follow-up with cardiology as scheduled, recheck renal function Type 2 surya betes mellitus 11174997 Z79.4 recent A1c 8.0% not at goal, recent blood sugars reviewed and 140-160, will hold on adding basal dosing for now to avoid hypoglycem ia, continue Jardiance with mealtime sliding scale, repeat A1c in 3 months Major depr essive disorder 972716186 F32.9 mood and affect appropriat e on exam, continue Lexapro, Seroquel daily and buspirone and trazodone HS; consider GDR due to age and frailty History of malignant neoplasm of prostate 394755868 Z85.46 stable, denies symptoms, repeat PSA, follow-up urology Vitamin D deficiency 347 62647 E55.9 continue daily supplement , repeat vitamin-D level with routine labs History of cerebrovascular accident 441112885 Z86.73 functional impairment on exam, continue supportive care, daily aspirin, check lipid panel, maintain glycemic and BP control Essential hypertension 48326633 I10 continue metoprolol for BP goal less than 150 over less than 90 Gastroesop hageal reflux disease without esophagitis 247679187 K21.9 well controlled on PPI, continue Hyponatremia 54759823 E8 7.1 sodium 140 on recent labs, continue to monitor [id number] SOMMER MARTIN [facility] [place] ne: [address] [address] 05/27/2023 21:55:06 06/06/2023 09:26:05 Suprapubic pain 055100252 R10.[address] reviewed, noted R hydronephr osisis with non obstructin g stone, no bladder scan available in facility, will have staff check post void residual via straight cath, urology f/u scheduled, does not feel he needs pain medication , will recheck UA and culture, continue finasterid e and flomax History of malignant neoplasm of prostate 986314176 Z85.46 follows with MD najera, stable of recent, continue to monitor output, notify provider of straight cath results post void, continue flomax and finasterid e Benign pro static hyperplasia without outflow obstruction 089799314 N40.0 continue flomax and finasterid e, monitor output and post void residual with urology f/u as scheduled Type 2 surya betes mellitus 67223515 Z79.4 stable on jardiance and mealtime SSI, most recent A1c 8.0% not at goal, recent blood sugars reviewed, no changes in regimen today [id number] SOMMER MARTIN [facility] [place] ne: [address] [place] [address] 06/13/2023 12:31:12 06/29/2023 12:28:30 Paroxysmal atrial fibrillation 947741080 I48.0 rate controlled on metoprolol 25mg ER, will resume eliquis today as benefits outweight risk; will need held prior to urology procedure, this has been discussed with and patient, continue to follow with cardiology as scheduled Benign pro static hyperplasia 480322639 N40.1 stable on flomax and finasterid e with frequent UTIs, follows with urology Chronic di astolic heart failure 392620975 I50.32 known NICM with reduced EF, tolerating entresto and jardiance, continue spirinolac tone and lasix, monitor renal function, continue weekly weights and low salt diet, s/p AICD with risk for ventricula r arrhythmia Type 2 surya betes mellitus 81551614 Z79.4 stable on jardiance and mealtime SSI, most recent A1c 8.0% not at goal, recent blood sugars reviewed and stable, repeat HA1c 3mos from previous Calculus o f kidney and ureter 181378144 N20.2 f/u scheduled with MD Najera, recent CT with hydronephr osis, 9mm non obstructin g stone on R, straight cath post void with minimal urinary retention, continue to monitor output pending definitive stone treatment, eliquis will need held for this, continue flomax and finasterid e [id number] Ajay Agrawal MD [facility] [place] ne: [address] [place] [address] 06/20/2023 11:48:55 06/29/2023 12:30:00 Dysphagia 75539957 R13.10 long-stand ing history of dysphagia patient was seen by [facility] Otolaryngo logy in June 2014 and Gastromarisol ramirezogshonda in December 2014 for dysphagia and an [...] in the Fall therapy referral Diabetes mellitus 832003 09 E13.9 fingerstic k blood glucose log reviewed -- blood glucose readings are running on the high side but not extremely high hemoglobin A1c:8.0% on 04-23-2023 patient recently started on low-dose Lantus increase Jardiance to 25 mg once daily discontinu e insulin sliding scale check FSBS TID diabetic diet Dementia w ith behavioral disturbance 5521399861 103 F03.918 Marissa says that the patient has had cognitive impairment for >10 years but has not had a steep decline in his mental status history of possible normal pressure hydrocepha vee? I recommende d that the patient's and schedule neurology follow up for further evaluation Atrial fibrillation 1527 5666 I48.91 it was recently discovered that the patient's apixaban was discontinu ed by his primary prior primary care physician for unclear reasons apixaban recently restarted trend heart rates check CBC follow up with electrophy siology as directed Congestive heart failure 94673033 I50.9 echocardio gram on April 01, 2022 [...] check BMP check BNP Hypertensive disorder 38 899465 I10 trend blood pressures Recurrent urinary tract infection 928301871 N39.0 sees urology for BPH, recurrent urinary tract infections , and prostate cancer follow up with urology as directed Benign pro static hyperplasia with outflow obstruction 079308693 N40.1 sees urology for BPH, recurrent urinary tract infections , and prostate cancer follow up with urology as directed Unable to walk 306638193 R26.2 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 Marissa says that the patient stopped walking a few years ago after he contracted a severe COVID infection early on in the pandemic and has not walked since etiology unclear I recommende d that the patient's and schedule neurology follow up for further evaluation therapy referral Complete atrioventricular block 53969503 I44.2 history of complete heart block status post TEACHING AIDE-D placement Peripheral angiopathy due to diabetes mellitus 397326690 E11.51 details unclear risks of aspirin therapy in addition to apixaban likely greater than benefit in this patient who falls frequently I asked patient's to ask his cardiologi st next week if he can discontinu e aspirin History of cerebrovascular accident 774454352 Z86.73 details unclear follow up with neurology as directed History of malignant neoplasm of prostate 487757158 Z85.46 sees urology for BPH, recurrent urinary tract infections , and prostate cancer follow up with urology as directed History of SARS-CoV-2 29 15032454 41517812 Z86.16 Marissa says that the patient stopped walking a few years ago after he contracted a severe COVID infection early on in the pandemic and has not walked since Chronic ob structive pulmonary disease 11962113 J44.9 details unclear patient never smoked by report Osteoarthritis 266689630 M19.90 Anxiety 48309652 F41.9 Major depr essive disorder 256327786 F32.9 Dry eyes 810891019 H04.1 23 Constipation 10918015 K5 9.00 discontinu e Milk of Magnesia start polyethyle ne glycol 17 g once daily as needed [facility] of polypharmacy 227732904 Z91.89 decrease sodium chloride tablets to 500 mg twice daily, consider discontinu ing if sodium remains stable discontinu e insulin sliding scale decrease cholecalci ferol to 5000 units once a week discontinu e vitamin C discontinu e Milk of Magnesia consider discontinu ing medication s below Insomnia 199685392 G47.0 0 Parkinson's disease 4904 9000 G20.A1 details unclear does not seem to have typical signs and symptoms of Parkinson' s on examinatio n I recommende d that the patient's and schedule neurology follow up for further evaluation Normal pre ssure hydrocephalus 56996304 G91.2 concern for possible normal pressure hydrocepha [...] neurology follow up for further evaluation Neuropathy 645098386 G62 .9 details unclear follow up with neurology as directed Obstructiv e sleep apnea syndrome 24094833 G47.33 History of pulmonary embolus 395951672 Z86.711 details unclear continue apixaban Hyperlipidemia 92001704 E78.5 not currently on treatment check lipid profile with next blood draw [id number] Ajay Agrawal MD [facility] ne: [address] [address] 07/07/2023 09:38:05 07/12/2023 22:47:58 Normal pressure hydrocephalus 12361699 G91.2 concern for possible normal pressure hydrocepha [...] with neurologis t Dr. Blayne Hunter at [facility] I will fax Dr. Hunter my recent Progress Notes to assist with his evaluation Parkinson's disease 4904 9000 G20.A1 details unclear does not seem to have typical signs and symptoms of Parkinson' s on examinatio n patient is currently not on any medication s for Parkinson' s I recommende d that the patient's Marissa schedule neurology follow up for further evaluation Marissa recently made an appointmen t with neurologis t Dr. Blayne Hunter at [facility] I will fax Dr. Hunter my recent Progress Notes to assist with his evaluation Hypotensive episode 6776 3001 I95.9 nursing staff report that his blood pressures have been running soft in the mornings patient has also had poor oral intake recently decrease furosemide 20 mg once daily decrease spironolac tone to 12.5 mg once daily encourage fluids Diabetes mellitus 853672 09 E13.9 insulin sliding scale recently discontinu [...] SARS-CoV-2 rapid antigen test Congestive heart failure 19989228 I50.9 echocardio gram on April 01, 2022 [...] facility protocol cardiac diet check BNP At [facility] risk of polypharmacy 490856371 Z91.89 discontinu e sodium chloride tablets insulin sliding scale discontinu ed cholecalci ferol decreased to 5000 units once a week vitamin C discontinu ed Milk of Magnesia discontinu ed Candidiasi s of urogenital site 528222303 B37.49 nursing reports that the patient is constantly urinating and his perineal area is always wet extensive excoriated rash in his perineal area noted start nystatin ointment and powder twice daily Hyperkalemia 97713994 E8 7.5 potassium 5.0 likely secondary to [...] ID Guarantor Name 07/12/2023 COMPMED Maida Zipfel [id number] Maida Zipfel 07/13/2023 2 [place]MEDIC[place]PPLE[place]) [id number] Maida Delacruz Zipfel [id number] Maida Zipfel 07/12/2023 [place] Maida S Zipfel [id number] Maida Zipfel 07/16/2023 1 [place] Maida S Zipfel [id number] Maida Zipfel 07/12/2023 1 [place] Maida Delacruz Zipfel [id number] Maida Zipfel Notes Date Note Type Note Provider Name and Address Organization Details Recorded Time 05/19/2023 text/html Medicare Annual Wellness VisitReported by PatientSocial/Behavior al HistoryFor diet and nutrition, patient reportshealthy diet. For fracture risk, patient reportsno history of fractures.Mental Status:For concentration and memory, patient reportsmemory lapses or lossbut reportsno decreased concentrating ability. For depression risk, patient reportsnever feels sad, empty, or tearful. For orientation, patient reportsno disorientation to time,no disorientation to date, andno disorientation to place.Functional AbilityFor hearing, patient reportsgetting progressively worse. For vision, patient reportsworsening. For instrumental activities of daily living, patient reportsunable to manage medications without assistanceandunable to to prepare meals without assistance. For falls risk assessment, patient reportsno fall since last visit. For home safety, patient reportshas hand bars in the bathroom/shower,good lighting in the home, andreviewed sun protection. patient seen for Medicare annual wellness visit [...] exam.check CBCcheck CMPcheck fasting lipid profilecheck hemoglobin T3Cbfqus TSHcheck vitamin Dcheck vitamin B27oppgu folate JOEL ANGELESSOMMER [address] [place], [address], [facility] 05/19/2023 14:27:36 05/27/2023 text/html pt seen today for f/u on suprapubic pain, he is resting [...] up at night to void. JOEL ANGELESSOMMER [address] [facility], [place], [address], [facility] 06/02/2023 21:23:45 06/13/2023 text/html Pt seen for follow up visit today , he is sitting [...] or other concerns per nursing staff. 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 The patient has a long-standing history of dementia. He was followed by [facility] neuromuscular clinic for gait instability, cognitive [...] saw neurosurgery again. He was seen by [facility] Otolaryngology in June 2014 and Gastroenterology in December 2014 for dysphagia and an abnormal barium esophagram showing esophageal dysmotility with delayed esophageal emptying. An EGD was recommended but it is unclear if he ever went through with the procedure. The patient was seen at the [facility] Geriatric Medicine by Dr. Cathi Freeman as recently as November 2020 for vascular dementia with behavioral disturbance, Parkinson's disease, and dysphagia. The patient has had multiple recent hospitalizations at [facility]. He was hospitalized from February 23-2022 for an ESBL E. coli UTI on a urine culture at [facility] and treated with intravenous meropenem [...] coli UTI on a urine culture at [facility] treated with intravenous meropenem and fosfomycin even though he was reportedly asymptomatic. He was again sent to the emergency department on April 26 for an ESBL E. coli UTI on a urine culture at [facility] and discharged on doxycycline. Of note, an echocardiogram on April 01, 2022 was remarkable for moderately reduced left ventricular systolic function with an ejection fraction of 30-35%, moderate to severe global hypokinesis, borderline reduced right ventricular systolic function, aortic stenosis, and [id number]-mb-idizyjdy mitral and tricuspid regurgitation. The patient is [...] 33, [place] 1[place] [address], [place], [address], [facility] 06/26/2023 18:49:06 07/07/2023 text/html I saw the patient urgently today because nursing staff notified me [...] appointment with neurologist Dr. Blayne Hunter at [facility]. Marissa had many questions about the patient's [...] daily on [place] [address], [place], [address], [facility] 07/08/2023 15:45:43
--- OUTSIDE RECORDS SUMMARY | 2025-02-26 19:57 | XMS_ITS | Clinical Summary ---
Author Organization [facility] [place] [facility] Address [address] [place] [address] Care Team Providers Care Financial Sales Manager Name Role Phone Margarita Jaimes MD Unavailable [phone] Jeevan Gibson MD PhD Unavailable [phone] Olu Reis MD Unavailable [phone] Brant Rodriguez DPM Unavailable [phone] Cathi Freeman MD Unavailable Miscellaneous, Not In File Primary Care Provider Unavailable Allergies Active Allergy Reactions Criticality Noted Date [...] (50 mg total) by mouth nightly PER [facility] MEDICATION LIST Active docusate sodium (COLACE) 100 [...] extended release tabletIndications:Ca rdiac resynchronization therapy pacemaker (OPTICAL ASSISTANT-P) in place,PVC's (premature ventricular contractions),Perman ent atrial fibrillation (HCC) Take 1 tablet (25 mg total) by mouth daily 90 tablet 3 01/20/20 24 Active Active Problems Problem Noted Date Diagnosed Date Palliative care by specialist 07/10/2023 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 Dr. Dickens does recommend long-term helton but patient is resistant at this [...] . Assessment & Plan (04/29/2022 12:59 PM COMPLAINT EVALUATION OFFICER): -Has had 1 confirmed, possibly 2-3 other [...] apixaban Assessment & Plan (05/17/2021 10:47 AM COMPLAINT EVALUATION OFFICER): Assessment/plan: Continue ASA and statin therapy. Bilateral [...] lispro. Assessment & Plan (05/17/2021 10:46 AM COMPLAINT EVALUATION OFFICER): Assessment/plan: Insulin strict glucose control Assessment & [...] 0 11/03/2017 Basal cell carcinoma (BCC) of oriental orthodox region 10/2017 Basal cell carcinoma (BCC) of [...] supplement Assessment & Plan (02/23/2020 10:37 AM COMPLAINT EVALUATION OFFICER): Continue daily supplement Assessment & Plan (09/01/2019 8:28 AM CDT): Continue supplement Assessment & Plan (01/19/2019 1:00 PM COMPLAINT EVALUATION OFFICER): Continue supplement, recheck labs Assessment & Plan (07/03/2018 9:35 AM CDT): Continue supplement History of fall 06/20/2015 Assessment & Plan (08/15/2023 1:04 PM CDT): Patient did slip from bed 08/12 & has been complaining of L rib pain since. Will obtain XR to ro. He does report better but asking for XR. Assessment & Plan (05/19/2020 5:35 AM COMPLAINT EVALUATION OFFICER): Patient has a history of falls and [...] information as she [facility] for future planning. Cont rx lexapro [...] regimen. Assessment & Plan (04/27/2019 12:44 PM COMPLAINT EVALUATION OFFICER): Hypertension is controlled. Continue current regimen. Assessment [...] 1:03 PM CDT): FU Urology shyann for 6/17. Keep. SS aware & scheduling. 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 Obstructive nephropathy 07/13/2023 07/1 07/2023 Assessment & Plan (09/15/2023 11:49 AM CDT): Stent & helton removed 09/11. Voiding well on own. DC bladder scans. Assessment & Plan (09/12/2023 10:56 AM CDT): Stent & helton removed 09/11. Eliquis placed on hold for weekend. Voiding trial ordered. Assessment & Plan (09/08/2023 1:08 PM CDT): Will remove stent & helton 09/11. Urology is not wanting long-term helton but patient is not. Will discuss [...] heart failure 03/31/2022 02/23/2023 Orthostatic hypotension 07/18/2021 05/2 05/2023 Severe malnutrition 05/31/2021 08/05/19 FLORINDA (acute kidney injury) 05/31/2021 Assessment & Plan (07/31/2023 11:29 AM CDT): Repeat labs pending for am. Monitor. Sepsis associated hypotension 05/31/2021 07/31/2023 Multiple open wounds of ankle 05/17/2021 02/23/2023 Assessment & Plan (05/17/2021 10:51 AM COMPLAINT EVALUATION OFFICER): Assessment/plan: Pressure ulceration the lateral ankles likely from his bed. Continue local wound care with Betadine paint and offloading. Eventually he will likely need an MRI to rule out osteomyelitis. Cognitive communication deficit 03/09/2021 07/31/2023 Myalgia 04/27/2019 02/23/2023 Dermatitis 04/27/2019 02/23/2023 Assessment & Plan (04/27/2019 1:50 PM COMPLAINT EVALUATION OFFICER): No evidence of cellulitis. Moisturize with vaseline. Use OTC cortisone OTC. Acute cystitis 01/20/2019 07/31/2023 Low back pain 01/19/2019 09/22/2023 Assessment & Plan (01/19/2019 1:19 PM COMPLAINT EVALUATION OFFICER): Will check urinalysis with reflex to culture [...] time Assessment & Plan (02/23/2020 10:38 AM COMPLAINT EVALUATION OFFICER): Glucoses a little high, but he has [...] labs Assessment & Plan (01/19/2019 1:00 PM COMPLAINT EVALUATION OFFICER): Glucoses within a good margin of safety, but a little high so he would benefit from a little more basal insulin Assessment & Plan (07/03/2018 9:35 AM CDT): Mild hyperglycemia, but maintaining a good margin of safety. I would not change therapy at this time Muscle weakness of lower extremity 03/20/2016 02/23/2023 Vascular dementia 06/20/2015 02/23/2023 Assessment & Plan (05/19/2020 5:38 AM COMPLAINT EVALUATION OFFICER): Patient may experience some deficits with stress or electrolyte disturbances as was with his left leaning episodes. Will continue to monitor and emphasize safety to family. Assessment & Plan (02/23/2020 10:37 AM COMPLAINT EVALUATION OFFICER): He is supported by his . Need to minimize risk of hypoglycemia Dysphagia 06/30/2014 09/08/2023 Assessment & Plan (05/19/2020 5:36 AM COMPLAINT EVALUATION OFFICER): Patient is having chocking episodes and the [...] trazodone. Assessment & Plan (05/19/2020 5:31 AM COMPLAINT EVALUATION OFFICER): As the patient continues to have functional [...] FIBRILLATION Assessment & Plan (05/17/2021 10:46 AM COMPLAINT EVALUATION OFFICER): Assessment/plan: Metoprolol Assessment & Plan (04/27/2019 12:44 PM COMPLAINT EVALUATION OFFICER): Continue rate control. Continue anticoagualtion. Assessment & Plan (12/04/2018 1:38 PM CDT): Continue metoprolol. S/p pacemaker. Assessment & Plan (11/26/2017 7:05 AM CDT): Continue rate control. Continue anticoagualtion. Diabetic hypoglycemia 03/26/20132022 Pacemaker at end of battery life 10/27/2012 07/31/2023 Skin callus 05/04/2012 09/29/2023 Onychomycosis due to dermatophyte 05/04/2012 02/23/2023 BPH with obstruction/lower u rinary tract symptoms 02/23/2023 Assessment & Plan (04/29/2022 12:57 PM COMPLAINT EVALUATION OFFICER): -On flomax. -PVR today was 13 mL. [...] Encounters Date Type Department Care Team Description 02/09/2025 Telephone [facility] Radiology [address] [place] [address] Franci Luciano, ROLF 01/27/2025 Telephone [facility] Radiology [address] [place] [address] Franci Luciano, ROLF 01/20/2025 1:45 PM COMPLAINT EVALUATION OFFICER - 01/20/2025 11:59 PM COMPLAINT EVALUATION OFFICER Hospital Encounter [address] [address] BPH with obstruction/lower urinary tract symptoms Discharge Disposition: Discharge to home or self care from Last 3 Months Immunizations Immunization Administration [...] CARDIAC PACEMAKER PLACEMENT Cardiac pacemaker TONSILLECTOMY Tonsillectomy TX THERAPEUTIC SPINAL PUNCTU RE DRAINAGE CSF Spinal [...] 2021 Benign prostatic hyperplasia 2006 Diabetes mellitus 2004 Type 2 diabetes mellitus Peripheral neuropathy [...] - (Added by TW Conv) Cancer Sister LEAD INSTRUCTOR/FLIGHT ATTENDANT Cancer - (Added by TW Conv) Relation Name Status Comments Brother 1 Edson Brother 2 Brother 3 Jasbir Father Agnellus Mother Alive Other 1 Other 2 Sister LEAD INSTRUCTOR/FLIGHT ATTENDANT Social History Tobacco Use Types Packs/Day Years Used Date Smoking Tobacco: Never Smokeless Tobacco: Never Tobacco Cessation:Counseling Given: Not Answered Alcohol Use Standard Drinks/Week Comments Not Currently 0 (1 standard drink = 0.6 oz pur e alcohol) [facility] Utilities Answer Date Recorded In the past 12 months has th e electric, gas, oil, or water company [...] often do you attend chur ch or caodaism services? Never 07/09/2023 Do you belong to any clubs o r organizations such as roman catholic groups, unions, fraternal or athletic groups, or [...] place to sleep or slept in a nursing home (including now)? No 07/09/2023 Personal Safety Answer Date Recorded Have you ever been in or are you currently in a harmful physical or emotional relationship or is someone making you feel afraid or unsafe? Denies 01/12/2024 Sex and Gender Information Value Date Recorded Sex Assigned at Male 05/11/2018 9:16 AM COMPLAINT EVALUATION OFFICER Legal Sex Male 1:34 AM COMPLAINT EVALUATION OFFICER Gender Identity Not on file Sexual Orientation Straight 05/11/2018 9: 16 AM COMPLAINT EVALUATION OFFICER Last Filed Vital Signs Vital Sign Reading Time Taken Comments Blood Pressure 104/60 01/20/2024 12:35 PM COMPLAINT EVALUATION OFFICER Pulse 64 01/20/2024 12:35 PM COMPLAINT EVALUATION OFFICER Temperature 36 C (96.8 F) 01/12/2024 1:05 PM COMPLAINT EVALUATION OFFICER Respiratory Rate 14 01/12/2024 2:10 PM COMPLAINT EVALUATION OFFICER Oxygen Saturation 99% 01/20/2024 12:35 PM COMPLAINT EVALUATION OFFICER Inhaled Oxygen Concentration - - Weight 108 kg (238 lb) 02/17/2024 11:07 AM COMPLAINT EVALUATION OFFICER Height 190.5 cm (6' 3) 02/17/2024 11:07 AM COMPLAINT EVALUATION OFFICER Body Mass Index 29.75 02/17/2024 11:07 AM COMPLAINT EVALUATION OFFICER Plan of Treatment Health Maintenance Due Date [...] 07/17/2015, 11/15/2010 Medical Devices Implanted Type Area Automotive Upholsterer Device Identifier Shelf Expiration Date Model / Serial / Lot Pacemaker Pacemaker Left: Chest Lead Pacing Acuity X4 Irox [id number] Titanium Dexamethasone Acetate 4 Cm Space L95 Cm Od3.9-5.2 Fr Odsec2.6 Fr Left Ventricular Otw Quadripolar Long Straight Taper Tip Accept .081 In Guide Catheter Is4-Ll Implanted:Qty: 1 on 06/06/2022 by Jared Hernandez MD at [facility] [employer] Anisha [id number] 08/21/2023 [id number] / [id number] / Modern Boutique Scientific C.R.M. Valitude X4 Latitude Nxt Hf Perspectiv Easyview 2.6fr 4.45x6.17cm U128 - [id number] - [id number] Implanted:Qty: 1 on 06/06/2022 by Jared Hernandez MD at [facility] Scientific C.R.M. [id number] 10/04/2023 [id number] / [id number] / Medtronic Inc Tyrx Absorbable Antibacterial Envelope-Large 3.3x2.9in [id number] - [id number] Implanted:Qty: 1 on 06/06/2022 by Jared Hernandez MD at [facility] Medtronic [facility] [id number] / / Xiaoi Robert Angio-Seal Vip 6fr Closere Device [id number] - [id number] Implanted:Qty: 1 on 01/12/2024 at [facility] TerTelerivet Anisha 05/11/2024 [id number] / / [id number] Familio Coil Embo Detach Soft Embold [id number] Sterile Latex-Free [id number] - [id number] Implanted:Qty: 1 on 01/12/2024 at [facility] Familio 07/09/2026 [id number] / / [id number] [employer] Embosphere Prefill Saline Syringe Compressible Nonaggregate S420gh - [id number] Implanted:Qty: 1 on 01/12/2024 at [facility] [employer] 10/23/2026 [id number] / / [id number] Medtronic Inc Coil Embolization Coated Detachable Helical Concerto [id number] Nylon Lc-0-92-[place] - [id number] Implanted:Qty: 1 on 01/12/2024 at [facility] Medtronic Inc 11/07/2025 NV-4-10- HELIX / / [id number] Medtronic Inc Coil Embolization Coated Detachable Helical Concerto 5tyl6nh Nylon Ek-6-3-[place] - [id number] Implanted:Qty: 1 on 01/12/2024 at [facility] Medtronic Inc 06/16/2026 NV-4-8-H ELIX / / [id number] Explanted Type Area Automotive Upholsterer Device Identifier Shelf Expiration Date Model / Serial / Lot Amazing Global Technologies Medical Inc [id number] 6fr 22cm 145cm Radiopaque Positioner Filiform Flexible Tip - [id number] Implanted:Qty: 1 on 07/11/2023 by Dre Chu MD at [facility] Explanted:Qty: 1 on 07/25/2023 by Dre Chu MD Stent Right: Ureter [employer] Inc [id number] 03/21/2026 [id number] / / [id number] [employer] Inc [id number] 6fr 22cm 145cm Radiopaque Positioner Filiform Flexible Tip - [id number] Implanted:Qty: 1 on 07/25/2023 by Dre Chu MD at [facility] Explanted:08/09 by Landon Dickens MD (Quantity not on file) Right: Ureter [employer] Inc [id number] 03/21/2026 [id number] / / [id number] Description:Removed by patie nt via string [employer] Inc [id number] 6fr 26cm 145cm Radiopaque Positioner Filiform Flexible Tip - [id number] Implanted:Qty: 1 on 09/03/2023 by Landon Dickens MD at [facility] Explanted:Qty: 1 on 09/08/2023 Right: Kidney [employer] Inc [id number] 04/18/2026 [id number] / / [id number] Description:Removed by patie nt at home via string Procedures Procedure Name Priority Date/Time Associated Diagnosis Comments CT ABDOMEN PELVIS WO CONTRAST Schedule Routine, Read Routine (OP Routine) 01/20/2025 2:25 PM COMPLAINT EVALUATION OFFICER BPH with obstruction/lower urinary tract symptoms EGFR Routine 01/12/2024 7:33 AM COMPLAINT EVALUATION OFFICER Atrial flutter, unspecified type (HCC) HEMOGLOBIN A1C Routine 07/09/2023 7:45 AM CDT LIPID PANEL Routine 06/09/2023 1:29 PM CDT Lipid screening ALBUMIN CREATININE RATIO, URINE Routine 02/01/2019 10:44 AM COMPLAINT EVALUATION OFFICER Low back pain without sciatica, unspecified back pain laterality, unspecified chronicity from Last 3 Months or Most Recently Relevant to Health Maintenance Results * CT Abdomen Pelvis WO Contrast (01/20/2025 2:25 PM COMPLAINT EVALUATION OFFICER) Anatomical Region Laterality Modality Body N/A Computed Tomogra phy 01/21/2025 3:16 PM COMPLAINT EVALUATION OFFICER Impressions 01/21/2025 3:16 PM COMPLAINT EVALUATION OFFICER No nephrolithiasis or urolithiasis. No hydronephrosis or hydroureter. No cholelithiasis Electronically signed by: David Lane M.D. Narrative 01/21/2025 3:16 PM COMPLAINT EVALUATION OFFICER EXAMINATION: CT ABDOMEN PELVIS WO CONTRAST HISTORY: kidney stones. TECHNIQUE: CT abdomen and pelvis without contrast . Reconstructed coronal and sagittal MPR images reviewed. All images stored on PACS. Automated exposure control was used as a dose optimization technique for this examination. COMPARISON: CT dated 07/11/2023 FINDINGS: The sensitivity for detection of visceral lesions is diminished without the use of intravenous contrast. LOWER CHEST: The lung bases are clear. The heart is normal in size without pericardial effusion. LIVER: Normal in size. No identified cystic or solid masses. GALLBLADDER:No radiopaque gallstones are seen. BILIARY: No intrahepatic or extrahepatic ductal dilatation. SPLEEN: Normal length. No focal lesions. PANCREAS: No identified cystic or solid masses. No significant calcifications. No adjacent inflammation or peripancreatic fluid collections. Pancreatic duct is not dilated. ADRENALS: No discrete nodules. KIDNEYS/URINARY TRACT: No identified significant cystic or solid masses. Bilateral cysts. No stones. No hydronephrosis or hydroureter. The urinary bladder is unremarkable. GI: No dilated bowel loops. No obvious wall thickening. Normal appendix. No significant diverticular disease. PERITONEUM: No free intraperitoneal air or ascites. RETROPERITONEUM:No mass or adenopathy REPRODUCTIVE:No significant abnormality VASCULATURE: No abdominal aortic aneurysm. MUSCULOSKELETAL: No acute findings. OTHER: No other acute findings. Procedure Note David Lane MD - 01/21/2025 EXAMINATION: CT ABDOMEN PELVIS WO CONTRAST HISTORY: kidney stones. TECHNIQUE: CT abdomen and pelvis without contrast . Reconstructed coronal and sagittal MPR images reviewed. All images stored on PACS. Automated exposure control was used as a dose optimization technique for this examination. COMPARISON: CT dated 07/11/2023 FINDINGS: The sensitivity for detection of visceral lesions is diminished without the use of intravenous contrast. LOWER CHEST: The lung bases are clear. The heart is normal in size without pericardial effusion. LIVER: Normal in size. No identified cystic or solid masses. GALLBLADDER:No radiopaque gallstones are seen. BILIARY: No intrahepatic or extrahepatic ductal dilatation. SPLEEN: Normal length. No focal lesions. PANCREAS: No identified cystic or solid masses. No significant calcifications. No adjacent inflammation or peripancreatic fluid collections. Pancreatic duct is not dilated. ADRENALS: No discrete nodules. KIDNEYS/URINARY TRACT: No identified significant cystic or solid masses. Bilateral cysts. No stones. No hydronephrosis or hydroureter. The urinary bladder is unremarkable. GI: No dilated bowel loops. No obvious wall thickening. Normal appendix. No significant diverticular disease. PERITONEUM: No free intraperitoneal air or ascites. RETROPERITONEUM:No mass or adenopathy REPRODUCTIVE:No significant abnormality VASCULATURE: No abdominal aortic aneurysm. MUSCULOSKELETAL: No acute findings. OTHER: No other acute findings. IMPRESSION: No nephrolithiasis or urolithiasis. No hydronephrosis or hydroureter. No cholelithiasis Electronically signed by: David Lane M.D. Landon Dickens MD IMG CT PROCEDURES Final Result * eGFR (01/12/2024 7:33 AM COMPLAINT EVALUATION OFFICER) eGFR 62 >=60 mL/min/1. 73 m2 Comment: [...] last reviewed 2021. Blood 01/12/2024 7:33 AM COMPLAINT EVALUATION OFFICER 01/12/2024 8:07 AM COMPLAINT EVALUATION OFFICER Alton Delaney MD LAB BLOOD ORDERABLES Final Result Performing Organization Address [facility] Co de Phone Number PRATIBHA H [facility] Department [place] [address] * (ABNORMAL) Hemoglobin A1c (07/09/2023 7:45 AM CDT) Hgb A1C 10.0(H) 4.0 - 5.6 % Estimated Average Glucose 240 mg/dL PRATIBHA Comment: The ADA recommends reporting an estimated Average Glucose (eAG) with all Hemoglobin A1c results using the equation derived from a study of 507 normal and diabetic adults. Minority populations were underrepresented and children were not included. (Diabetes Care 31:1889-3724, 2008). The eAG is not equivalent to a fasting glucose. Blood 07/09/2023 7:45 AM CDT 07/09/2023 8:15 AM CDT Aleksey Dawn MD LAB BLOOD ORDERABLES Final Result Performing Organization Address [facility] Co de Phone Number PRATIBHA [address] [facility] Department [place] [address] * Lipid panel (06/09/2023 1:29 PM CDT) [...] ORDERABLES Fi nal Result Performing Organization Address [facility] Co de Phone Number PRATIBHA [address] [facility] Department [place] [address] * Albumin Creatinine Ratio, Urine (02/01/2019 10:44 AM COMPLAINT EVALUATION OFFICER) Creatinine ur 151.4 Not Estab. mg/dL [facility] - 01 Microalbumin, ur 12.6 Not Estab. ug/mL [facility] - 01 Microalbumin/cre at ratio 8.3 0.0 - 30.0 mg/g creat [facility] - 01 Comment: Normal: 0.0 - 30.0 Albuminuria: 31.0 - 300.0 Clinical albuminuria: >300.0 Urine 02/01/2019 10:4 4 AM COMPLAINT EVALUATION OFFICER 02/01/2019 Narrative [facility] - 02/05/2019 12:08 PM COMPLAINT EVALUATION OFFICER Performed at: 01 - [facility] [address] [id number] Appraisal Technician: Percy Aguilar PhD, Phone: [phone] us Margarita Jaimes MD LAB URINE ORDERABLES Final Result Performing Organization Address [facility] Co de Phone Number [facility] [...] RN 09/17/24 Contact 09/10/2021 10/19/2023 Insurance MEDICARE Member Subscriber Plan / Payer (Ef fective 2003-Present) Name:NANCY GROVER Member ID:[id number] Relation to Subscriber:Self Name:Nancy Grover Subscriber ID:[id number] Payer ID:[id number] Group ID:Not on file Type:MEDICARE TRADITIONAL Address: [place] [id number] BLUE CROSS MEDICARE SUPPLEMENT MEDICARE [facility] TRADITIONAL MEDICARE [facility] MEDICARE SUPPLEMENT Advance Directives For more information, please contact: [phone] Documents on File Type Date Recorded Patient Shadow Graph Weight Operator Expl anation ADVANCE DIRECTIVE 10/21/2023 1:10 PM POLST - Phys Order for PT Preferences ADVANCE DIRECTIVE 09/19/2021 4:04 PM POLST - Phys Order for PT Preferences ADVANCE DIRECTIVE 06/01/2021 3:02 PM Power of Digester Hand-Medical ADVANCE DIRECTIVE 03/18/2019 3:08 PM Power of Digester Hand - Medical * Full Code (Latest Code [...] 10:03 PM 04/04/2023 2:46 AM Care Teams Financial Sales Manager Relationship Specialty Start Date End Date Miscellaneous, Not In File PCP - General 01/20/25 Margarita Jaimes MD Referring Physician Endocrinology Diabetes & Metabolism 08/30/19 Jeevan Gibson MD PhD Referring Physician Cardiology 02/22/20 Olu Reis MD Referring Physician Cardiology 02/22/20 Brant Rodriguez DPM Referring Physician Podiatry 02/22/20 Cathi Freeman MD [id number] [place] [address] Referring Physician Geriatric Medicine 10/09/20
--- OUTSIDE RECORDS SUMMARY | 2025-02-26 19:57 | XMS_ITS | Encounter Summary ---
Author Organization [facility] Address [address] [place] [address] Phone Care Team Providers Care Wood Scaler Name Role Phone Jonah Cook MD Primary Care Provider [phone] Margarita Jaimes MD Unavailable [phone] Jeevan Gibson MD PhD Unavailable [phone] Olu Reis MD Unavailable [phone] Brant Rodriguez DPM Unavailable + [phone] Cathi Freeman MD Unavailable Cesar Morris MD Primary Care Provider [phone] Serjio Pierre MD Primary Care Provider [phone] Chris Gentile MD Primary Care Provider [phone] Unknown, Notinfile Primary Care Provider Unavail able Tiana Hilario NP Primary Care Provider [phone] Miscellaneous, Not In File Primary Care Provider Unavailable Encounter Details Date Type Department Care Team (Late st Contact Info) Description 05/24/2013 Orders Only [facility] Provider, MD [facility] [place] [address] Social History Tobacco Use Types Packs/Day Years Used Date Smoking Tobacco: Never Alcohol Use Standard Drinks/Week Comments Yes 0 (1 standard drink = 0.6 oz pur e alcohol) Sex and Gender Information Value Date Recorded Sex Assigned at Male 05/11/2018 9:16 AM INSPECTOR PENETRANT Legal Sex Male 1:34 AM INSPECTOR PENETRANT Gender Identity Not on file Sexual Orientation Straight 05/11/2018 9: 16 AM INSPECTOR PENETRANT documented as of this encounter Plan of [...] RSV, droplet 02/28/2023 02/28/2023 03/14/2023 3:05 AM INSPECTOR PENETRANT COVID: Suspected 03/19/2023 03/19/2023 03/19/2023 9:02 AM INSPECTOR PENETRANT COVID: Suspected 07/08/2023 07/08/2023 07/08/2023 10:20 PM CDT documented as of this encounter Care Teams Wood Scaler Relationship Specialty Start Date End Date Jonah Cook MD PCP - General 01/31/10 02/18/22 Cesar Morris MD [address] [place] [address] PCP - General Internal Medicine 02/19/22 04/03/23 Serjio Pierre MD [address] [place] [address] PCP - General Internal Medicine 04/04/23 05/18/23 Chris Gentile MD [address] [place] [address] PCP - General Geriatric Medicine 09/03/23 10/09/23 Unknown, Notinfile PCP - General 10/19/23 01/11/24 Tiana Hilario NP [facility] [place] [address] PCP - General Geriatric Medicine 01/12/24 01/19/25 Miscellaneous, Not In File PCP - General 01/20/25 Margarita Jaimes MD Referring Physician Endocrinology Diabetes & Metabolism 08/30/19 Jeevan Gibson MD PhD Referring Physician Cardiology 02/22/20 Olu Reis MD Referring Physician Cardiology 02/22/20 Brant Rodriguez DPM Referring Physician Podiatry 02/22/20 Cathi Freeman MD [phone] [place] [address] Referring Physician Geriatric Medicine 10/09/20 documented as of this encounter
--- OUTSIDE RECORDS SUMMARY | 2025-02-26 19:57 | XMS_ITS | Encounter Summary ---
Author Organization 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 Answer Date of Assessment Author Status No 03/07/2021 7:00 PM WALL COVERING INSTALLER Activ e * Do you have serious [...] Care Team (Late st Contact Info) Description 03/21/2025 12:15 PM WALL COVERING INSTALLER Allied Health/Nurse Visit [facility] on [address] [address] Olu Suero MD [facility]. [address] [address] 12/06/2025 1:30 PM CDT Office Visit [facility], [address] [address] Olu Suero MD [facility]. [address] [address] documented as of this encounter Visit Diagnoses Not on filedocumented in this encounter Additional Health Concerns Infection Onset Date Last Indicated Resolved Time ESBL - Extended Spectrum Bet a-lactamase Comment:09/06/21 +ESBL Urine 09/09/2021 09/09/2021 documented as of this encounter Care Teams Junction Maker Relationship Specialty Start Date End Date Olu Suero MD [address] [place] [address] PCP - General CLINICAL CARDIAC ELECTROPHYSIOLOGY 08/24/24 documented as of this encounter
--- OUTSIDE RECORDS SUMMARY | 2025-02-26 19:57 | XMS_ITS | Encounter Summary ---
Author Organization [facility] Address [address] [place] [address] Phone Care Team Providers Care Diesel Technician Mechanic Name Role Phone Jonah Cook MD Primary Care Provider [phone] Margarita Jaimes MD Unavailable [phone] Jeevan Gibson MD PhD Unavailable [phone] Olu Reis MD Unavailable +[phone] Brant Rodriguez DPM Unavailable + [phone] Cathi Freeman MD Unavailable Cesar Morris MD Primary Care Provider [phone] Serjio Pierre MD Primary Care Provider +- [phone] Chris Gentile MD Primary Care Provider + [phone] Unknown, Notinfile Primary Care Provider Unavail able Tiana Hilario NP Primary Care Provider [phone] Miscellaneous, Not In File Primary Care Provider Unavailable Encounter Details Date Type Department Care Team (Late st Contact Info) Description 10/14/2013 Orders Only [facility] Provider, MD Preston [facility] [place] [address] Social History Tobacco Use Types Packs/Day Years Used Date Smoking Tobacco: Never Alcohol Use Standard Drinks/Week Comments Yes 0 (1 standard drink = 0.6 oz pur e alcohol) Sex and Gender Information Value Date Recorded Sex Assigned at Male 05/11/2018 9:16 AM NEEDLE LOOM SETTER Legal Sex Male 1:34 AM NEEDLE LOOM SETTER Gender Identity Not on file Sexual Orientation Straight 05/11/2018 9: 16 AM NEEDLE LOOM SETTER documented as of this encounter Plan of [...] RSV, droplet 02/28/2023 02/28/2023 03/14/2023 3:05 AM NEEDLE LOOM SETTER COVID: Suspected 03/19/2023 03/19/2023 03/19/2023 9:02 AM NEEDLE LOOM SETTER COVID: Suspected 07/08/2023 07/08/2023 07/08/2023 10:20 PM CDT documented as of this encounter Care Teams Diesel Technician Mechanic Relationship Specialty Start Date End Date Jonah Cook MD PCP - General 01/31/10 02/18/22 Cesar Morris MD [address] [place] [address] PCP - General Internal Medicine 02/19/22 04/03/23 Serjio Pierre MD [address] [place] [address] PCP - General Internal Medicine 04/04/23 05/18/23 Chris Gentile MD [address] [facility] [address] [place] [address] PCP - General Geriatric Medicine 09/03/23 10/09/23 Unknown, Notinfile PCP - General 10/19/23 01/11/24 Tiana Hilario NP [facility]5 [facility] [address] [place] [address] PCP - General Geriatric Medicine 01/12/24 01/19/25 Miscellaneous, Not In File PCP - General 01/20/25 Margarita Jaimes MD Referring Physician Endocrinology Diabetes & Metabolism 08/30/19 Jeevan Gibson MD PhD Referring Physician Cardiology 02/22/20 Olu Reis MD Referring Physician Cardiology 02/22/20 Brant Rodriguez DPM Referring Physician Podiatry 02/22/20 Cathi Freeman MD [id number] [place] [address] Referring Physician Geriatric Medicine 10/09/20 documented as of this encounter
--- OUTSIDE RECORDS SUMMARY | 2025-02-26 19:57 | XMS_ITS | Encounter Summary ---
Author Organization [facility] Address [address] [place] [address] Phone Care Team Providers Care Operations Management Trainee Name Role Phone Jonah Cook MD Primary Care Provider [phone] Margarita Jaimes MD Unavailable [phone] Jeevan Gibson MD PhD Unavailable [phone] Olu Reis MD Unavailable +[phone] Bratn Rodriguez DPM Unavailable + [phone] Cathi Freeman MD Unavailable Cesar Morris MD Primary Care Provider [phone] Serjio Pierre MD Primary Care Provider [phone] Chris Gentile MD Primary Care Provider + [phone] Unknown, Notinfile Primary Care Provider Unavail able Tiana Hilario NP Primary Care Provider [phone] Miscellaneous, Not In File Primary Care Provider Unavailable Encounter Details Date Type Department Care Team (Late st Contact Info) Description 05/23/2015 Orders Only [facility] Provider, MD [place] [facility] [address] Social History Tobacco Use Types Packs/Day Years Used Date Smoking Tobacco: Never Alcohol Use Standard Drinks/Week Comments Yes 0 (1 standard drink = 0.6 oz pur e alcohol) Sex and Gender Information Value Date Recorded Sex Assigned at Male 05/11/2018 9:16 AM DIGITAL PRINTER OPERATOR Legal Sex Male 1:34 AM DIGITAL PRINTER OPERATOR Gender Identity Not on file Sexual Orientation Straight 05/11/2018 9: 16 AM DIGITAL PRINTER OPERATOR documented as of this encounter Plan [...] RSV, droplet 02/28/2023 02/28/2023 03/14/2023 3:05 AM DIGITAL PRINTER OPERATOR COVID: Suspected 03/19/2023 03/19/2023 03/19/2023 9:02 AM DIGITAL PRINTER OPERATOR COVID: Suspected 07/08/2023 07/08/2023 07/08/2023 10:20 PM CDT documented as of this encounter Care Teams Operations Management Trainee Relationship Specialty Start Date End Date Jonah Cook MD PCP - General 01/31/10 02/18/22 Cesar Morris MD [address] [place] [address] PCP - General Internal Medicine 02/19/22 04/03/23 Serjio Pierre MD [address] [place] [address] PCP - General Internal Medicine 04/04/23 05/18/23 Chris Gentile MD [address] [facility] [address] [place] [address] PCP - General Geriatric Medicine 09/03/23 10/09/23 Unknown, Notinfile PCP - General 10/19/23 01/11/24 Tiana Hilario NP [facility]5 [facility] [address] [place] [address] PCP - General Geriatric Medicine 01/12/24 01/19/25 Miscellaneous, Not In File PCP - General 01/20/25 Margarita Jaimes MD Referring Physician Endocrinology Diabetes & Metabolism 08/30/19 Jeevan Gibson MD PhD Referring Physician Cardiology 02/22/20 Olu Reis MD Referring Physician Cardiology 02/22/20 Brant Rodriguez DPM Referring Physician Podiatry 02/22/20 Cathi Freeman MD [id number] [place] [address] Referring Physician Geriatric Medicine 10/09/20 documented as of this encounter
--- OUTSIDE RECORDS SUMMARY | 2025-02-26 19:57 | XMS_ITS | Encounter Summary ---
Author Organization [facility] Address [address] [place] [address] Phone Care Team Providers Care Barber Stylist Name Role Phone Jonah Cook MD Primary Care Provider [phone] Margarita Jaimes MD Unavailable [phone] Jeevan Gibson MD PhD Unavailable [phone] Olu Reis MD Unavailable +[phone] Brant Rodriguez DPM Unavailable + [phone] Cathi Freeman MD Unavailable eCsar Morris MD Primary Care Provider [phone] Serjio Pierre MD Primary Care Provider +- [phone] Chris Gentile MD Primary Care Provider + [phone] Unknown, Notinfile Primary Care Provider Unavail able Tiana Hilario NP Primary Care Provider [phone] Miscellaneous, Not In File Primary Care Provider Unavailable Encounter Details Date Type Department Care Team (Late st Contact Info) Description 04/18/2014 Orders Only [facility] Provider, MD [facility] [place] [address] Social History Tobacco Use Types Packs/Day Years Used Date Smoking Tobacco: Never Alcohol Use Standard Drinks/Week Comments Yes 0 (1 standard drink = 0.6 oz pur e alcohol) Sex and Gender Information Value Date Recorded Sex Assigned at Male 05/11/2018 9:16 AM EGG TRAYER Legal Sex Male 1:34 AM EGG TRAYER Gender Identity Not on file Sexual Orientation Straight 05/11/2018 9: 16 AM EGG TRAYER documented as of this encounter Plan of [...] RSV, droplet 02/28/2023 02/28/2023 03/14/2023 3:05 AM EGG TRAYER COVID: Suspected 03/19/2023 03/19/2023 03/19/2023 9:02 AM EGG TRAYER COVID: Suspected 07/08/2023 07/08/2023 07/08/2023 10:20 PM CDT documented as of this encounter Care Teams Barber Stylist Relationship Specialty Start Date End Date Jonah Cook MD PCP - General 01/31/10 02/18/22 Cesar Morris MD [address] [place] [address] PCP - General Internal Medicine 02/19/22 04/03/23 Serjio Pierre MD [address] [place] [address] PCP - General Internal Medicine 04/04/23 05/18/23 Chris Gentile MD [address] [facility] [address] [place] [address] PCP - General Geriatric Medicine 09/03/23 10/09/23 Unknown, Notinfile PCP - General 10/19/23 01/11/24 Tiana Hilario NP [facility] [facility] [address] [place] [address] PCP - General Geriatric Medicine 01/12/24 01/19/25 Miscellaneous, Not In File PCP - General 01/20/25 Margarita Jaimes MD Referring Physician Endocrinology Diabetes & Metabolism 08/30/19 Jeevan Gibson MD PhD Referring Physician Cardiology 02/22/20 Olu Reis MD Referring Physician Cardiology 02/22/20 Brant Rodriguez DPM Referring Physician Podiatry 02/22/20 Cathi Freeman MD [id number] [place] [address] Referring Physician Geriatric Medicine 10/09/20 documented as of this encounter
--- OUTSIDE RECORDS SUMMARY | 2025-02-26 19:57 | XMS_ITS | Encounter Summary ---
Author Organization [facility] Address [address] [place] [address] Phone Care Team Providers Care Wheel Truer Name Role Phone Jonah Cook MD Primary Care Provider [phone] Margarita Jaimes MD Unavailable [phone] Jeevan Gibson MD PhD Unavailable [phone] Olu Reis MD Unavailable [phone] Brant Rodriguez DPM Unavailable + [phone] Cathi Freeman MD Unavailable Cesar Morris MD Primary Care Provider [phone] Serjio Pierre MD Primary Care Provider +- [phone] Chris Gentile MD Primary Care Provider + [phone] Unknown, Notinfile Primary Care Provider Unavail able Tiana Hilario NP Primary Care Provider [phone] Miscellaneous, Not In File Primary Care Provider Unavailable Encounter Details Date Type Department Care Team (Late st Contact Info) Description 10/10/2014 Orders Only [facility]INCONV Provider, MD Preston [place] [address] Social History Tobacco Use Types Packs/Day Years Used Date Smoking Tobacco: Never Alcohol Use Standard Drinks/Week Comments Yes 0 (1 standard drink = 0.6 oz pur e alcohol) Sex and Gender Information Value Date Recorded Sex Assigned at Male 05/11/2018 9:16 AM DIRECTOR OF EARLY CHILDHOOD EDUCATION Legal Sex Male 1:34 AM DIRECTOR OF EARLY CHILDHOOD EDUCATION Gender Identity Not on file Sexual Orientation Straight 05/11/2018 9: 16 AM DIRECTOR OF EARLY CHILDHOOD EDUCATION documented as of this encounter Plan of [...] RSV, droplet 02/28/2023 02/28/2023 03/14/2023 3:05 AM DIRECTOR OF EARLY CHILDHOOD EDUCATION COVID: Suspected 03/19/2023 03/19/2023 03/19/2023 9:02 AM DIRECTOR OF EARLY CHILDHOOD EDUCATION COVID: Suspected 07/08/2023 07/08/2023 07/08/2023 10:20 PM CDT documented as of this encounter Care Teams Wheel Truer Relationship Specialty Start Date End Date Jonah Cook MD PCP - General 01/31/10 02/18/22 Cesar Morris MD [address] [place] [address] PCP - General Internal Medicine 02/19/22 04/03/23 Serjio Pierre MD [address] [place] [address] PCP - General Internal Medicine 04/04/23 05/18/23 Chris Gentile MD [address] [facility] [address] [place] [address] PCP - General Geriatric Medicine 09/03/23 10/09/23 Unknown, Notinfile PCP - General 10/19/23 01/11/24 Tiana Hilario NP [facility] [facility] [address] [place] [address] PCP - General Geriatric Medicine 01/12/24 01/19/25 Miscellaneous, Not In File PCP - General 01/20/25 Margarita Jaimes MD Referring Physician Endocrinology Diabetes & Metabolism 08/30/19 Jeevan Gibson MD PhD Referring Physician Cardiology 02/22/20 Olu Reis MD Referring Physician Cardiology 02/22/20 Brant Rodriguez DPM Referring Physician Podiatry 02/22/20 Cathi Freeman MD [id number] [place] [address] Referring Physician Geriatric Medicine 10/09/20 documented as of this encounter
--- OUTSIDE RECORDS SUMMARY | 2025-02-26 19:57 | XMS_ITS ---
Author Organization [facility] [address] [facility] Address [address] [facility] [place] [address] Care Team Providers Care Dry Can Tender Name Role Phone Margarita Jaimes MD Unavailable [phone] Jeevan Gibson MD PhD Unavailable [phone] Olu Reis MD Unavailable [phone] Brant Rodriguez DPM Unavailable +- [phone] Cathi Freeman MD Unavailable Miscellaneous, Not In File Primary Care Provider Unavailable Active Problems Problem Noted Date Diagnosed Date Palliative care by specialist 07/10/2023 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 Dr. Dickens does recommend [facility] [place] but patient is resistant at this [...] . Assessment & Plan (04/29/2022 12:59 PM CAFETERIA OPERATOR): -Has had 1 confirmed, possibly 2-3 [...] apixaban Assessment & Plan (05/17/2021 10:47 AM CAFETERIA OPERATOR): Assessment/plan: Continue ASA and statin therapy. [...] lispro. Assessment & Plan (05/17/2021 10:46 AM CAFETERIA OPERATOR): Assessment/plan: Insulin strict glucose control Assessment [...] 0 11/03/2017 Basal cell carcinoma (BCC) of buddhist region 10/2017 Basal cell carcinoma (BCC) of [...] supplement Assessment & Plan (02/23/2020 10:37 AM CAFETERIA OPERATOR): Continue daily supplement Assessment & Plan (09/01/2019 8:28 AM CDT): Continue supplement Assessment & Plan (01/19/2019 1:00 PM CAFETERIA OPERATOR): Continue supplement, recheck labs Assessment & Plan (07/03/2018 9:35 AM CDT): Continue supplement History of fall 06/20/2015 Assessment & Plan (08/15/2023 1:04 PM CDT): Patient did slip from bed 6 & has been complaining of L rib pain since. Will obtain XR to ro. He does report better but asking for XR. Assessment & Plan (05/19/2020 5:35 AM CAFETERIA OPERATOR): Patient has a history of falls [...] this information as she meets w [facility] services for future planning. Cont rx lexapro [...] regimen. Assessment & Plan (04/27/2019 12:44 PM CAFETERIA OPERATOR): Hypertension is controlled. Continue current regimen. [...] & [place] 09/11. Urology is not wanting vermin exterminator [place] but patient is not. Will discuss [...] 02/23/2023 Assessment & Plan (05/17/2021 10:51 AM CAFETERIA OPERATOR): Assessment/plan: Pressure ulceration the lateral ankles likely from his bed. Continue local wound care with Betadine paint and offloading. Eventually he will likely need an MRI to rule out osteomyelitis. Cognitive communication deficit 03/09/2021 07/31/2023 Myalgia 04/27/2019 02/23/2023 Dermatitis 04/27/2019 02/23/2023 Assessment & Plan (04/27/2019 1:50 PM CAFETERIA OPERATOR): No evidence of cellulitis. Moisturize with vaseline. Use OTC cortisone OTC. Acute cystitis 01/20/2019 07/31/2023 Low back pain 01/19/2019 09/22/2023 Assessment & Plan (01/19/2019 1:19 PM CAFETERIA OPERATOR): Will check urinalysis with reflex to [...] time Assessment & Plan (02/23/2020 10:38 AM CAFETERIA OPERATOR): Glucoses a little high, but he [...] labs Assessment & Plan (01/19/2019 1:00 PM CAFETERIA OPERATOR): Glucoses within a good margin of safety, but a little high so he would benefit from a little more basal insulin Assessment & Plan (07/03/2018 9:35 AM CDT): Mild hyperglycemia, but maintaining a good margin of safety. I would not change therapy at this time Muscle weakness of lower extremity 03/20/2016 02/23/2023 Vascular dementia 06/20/2015 02/23/2023 Assessment & Plan (05/19/2020 5:38 AM CAFETERIA OPERATOR): Patient may experience some deficits with stress or electrolyte disturbances as was with his left leaning episodes. Will continue to monitor and emphasize safety to family. Assessment & Plan (02/23/2020 10:37 AM CAFETERIA OPERATOR): He is supported by his . Need to minimize risk of hypoglycemia Dysphagia 06/30/2014 09/08/2023 Assessment & Plan (05/19/2020 5:36 AM CAFETERIA OPERATOR): Patient is having chocking episodes and [...] trazodone. Assessment & Plan (05/19/2020 5:31 AM CAFETERIA OPERATOR): As the patient continues to have [...] FIBRILLATION Assessment & Plan (05/17/2021 10:46 AM CAFETERIA OPERATOR): Assessment/plan: Metoprolol Assessment & Plan (04/27/2019 12:44 PM CAFETERIA OPERATOR): Continue rate control. Continue anticoagualtion. Assessment [...] 02/23/2023 Assessment & Plan (04/29/2022 12:57 PM CAFETERIA OPERATOR): -On flomax. -PVR today was 13 [...]
--- OUTSIDE RECORDS SUMMARY | 2025-02-26 19:57 | XMS_ITS | Data Portability ---
Author Organization [facility] Address [address] [place] [address] Care Team Providers Care Upholstery Cleaner Name Role Phone BHUMI EILEEN Primary Care Provider Assessment Encounter Date Assessment [...] Lab BMP, serum or plasma 024 [facility], [address], [address], [place], [address], 4 08:39:05 CMP, serum or plasma 024 [facility], [address], [address], [place], [address], 4 09:33:46 CBC w/ auto diff 024 024 [facility], [address], [address], [place], [address], 4 09:33:46 lipid panel, serum 024 024 [facility], [address], [address], [place], [address], 4 09:33:45 Referral None recorded . Procedures [...] AutoShield Duo Pen Needle 30 gauge x 16 active Not Available Not Avail able Not [...] Address Organization Details Last Updated DateTime 03/26/2023 69413.4 g 26.6 kg/m2 189.23 cm 124/84 mm[Hg] Karen Cutler MA [facility] 03/26/2023 14:39:23 Social History Question Answer Notes LastModified by Organizat ion Details LastModified Time Tobacco Smoking Status Never Smoker Karen Cutler MA null, [facility] 03/26/2023 14:30:38 What Was The Date Of Your Most Recent Tobacco Screening? 03/26/2023 [email or web address] Information not available 03/26/2023 Sex: Unknown Functional Status None recorded. Mental Status None recorded. Family History Nothing Reported. Medical History No medical history recorded. Past Encounters Encounter ID Performer Location Encounter Start Date Encounter Closed Date Diagnosis/Indication Diagnosis SNOMED-CT Code Diagnosis ICD10 Code Diagnosis IMO Codes Diagnosis Note [id number] Gavino Dewey MD [facility] [place] [facility] [address] [place] [address] 03/26/2023 14:10:58 04/08/2023 14:41:44 Congestive heart failure 64731560 I50.9 Chronic at rial fibrillation 953770750 I48.20 Permanent cardiac pacemaker 9572980219 82424 Z95.0 Essential hypertension 12775549 I10 Health Concerns Section Related Observation LastModified by Organization Detai ls LastModified Time None Recorded Concern Status LastModified by Organization Details LastModified Time None Recorded Advance Directives Directive None Recorded Payers Insurance Date Sequence Insurance Name Policy Number Policy Lopez Covered Member ID Lopez Member ID Guarantor Name 02/26/2024 1 [place] [id number] Maida Delacruz Zipfel [id number] Maida Delacruz Zipfel 02/26/2024 1 [place] Maida Delacruz Zipfel [id number] Maida S Zipfel 02/26/2024 [place] [facility] NONE Maida Delacruz Zipfel [id number] Maida S Zipfel 03/26/2023 1 [place] (MEDICARE SUPPLEMENT) [id number] Maida Zipfel [id number] Maida Delacruz Zipfel Notes Date Note Type Note Provider [...] dyspnea. Gavino Dewey MD Attn: Accounting[address] [place], [address], [place] 03/27/2023 13:43:44
--- OUTSIDE RECORDS SUMMARY | 2025-02-26 19:57 | XMS_ITS | Encounter Summary ---
Author Organization [facility] Address [address] [place] [address] Phone Care Team Providers Care Risk Lead Name Role Phone Jonah Cook MD Primary Care Provider [phone] Margarita Jaimes MD Unavailable [phone] Jeevan Gibson MD PhD Unavailable [phone] Olu Reis MD Unavailable +[phone] Brant Rodriguez DPM Unavailable + [phone] Cathi Freeman MD Unavailable Cesar Morris MD Primary Care Provider [phone] Serjio Pierre MD Primary Care Provider [phone] Chris Gentile MD Primary Care Provider + [phone] Unknown, Notinfile Primary Care Provider Unavail able Tiana Hilario NP Primary Care Provider [phone] Miscellaneous, Not In File Primary Care Provider Unavailable Encounter Details Date Type Department Care Team (Late st Contact Info) Description 04/27/2012 Orders Only [facility] ProviderPreston MD [address] [place] [address] Social History Tobacco Use Types Packs/Day Years Used Date Smoking Tobacco: Never Assessed Sex and Gender Information Value Date Recorded Sex Assigned at Male 05/11/2018 9:16 AM FILM CRITIC Legal Sex Male 1:34 AM FILM CRITIC Gender Identity Not on file Sexual Orientation Straight 05/11/2018 9: 16 AM FILM CRITIC documented as of this encounter Plan of [...] RSV, droplet 02/28/2023 02/28/2023 03/14/2023 3:05 AM FILM CRITIC COVID: Suspected 03/19/2023 03/19/2023 03/19/2023 9:02 AM FILM CRITIC COVID: Suspected 07/08/2023 07/08/2023 07/08/2023 10:20 PM CDT documented as of this encounter Care Teams Risk Lead Relationship Specialty Start Date End Date Jonah Cook MD PCP - General 01/31/10 02/18/22 Cesar Morris MD [address] [place] [address] PCP - General Internal Medicine 02/19/22 04/03/23 Serjio Pierre MD [address] [place] [address] PCP - General Internal Medicine 04/04/23 05/18/23 Chris Gentile MD [address] [facility] [address] [place] [address] PCP - General Geriatric Medicine 09/03/23 10/09/23 Unknown, Notinfile PCP - General 10/19/23 01/11/24 Tiana Hilario, PIGS FEET FINISHER [address] [facility] [address] [place] [address] PCP - General Geriatric Medicine 01/12/24 01/19/25 Miscellaneous, Not In File PCP - General 01/20/25 Margarita Jaimes MD Referring Physician Endocrinology Diabetes & Metabolism 08/30/19 Jeevan Gbison MD PhD Referring Physician Cardiology 02/22/20 Oul Reis MD Referring Physician Cardiology 02/22/20 Brant Rodriguez DPM Referring Physician Podiatry 02/22/20 Cathi Freeman MD [id number] [place] [address] Referring Physician Geriatric Medicine 10/09/20 documented as of this encounter
--- OUTSIDE RECORDS SUMMARY | 2025-02-26 19:57 | XMS_ITS | Encounter Summary ---
Author Organization [facility] Address [address] [place] [address] Phone Care Team Providers Care Merchandise Carrier Name Role Phone Jonah Cook MD Primary Care Provider [phone] Margarita Jaimes MD Unavailable [phone] Jeevan Gibson MD PhD Unavailable [phone] Olu Reis MD Unavailable +[phone] Brant Rodriguez DPM Unavailable + [phone] Cathi Freeman MD Unavailable Cesar Morris MD Primary Care Provider [phone] Serjio Pierre MD Primary Care Provider +- [phone] Chris Gentile MD Primary Care Provider + [phone] Unknown, Notinfile Primary Care Provider Unavail able Tiana Hilario NP Primary Care Provider [phone] Miscellaneous, Not In File Primary Care Provider Unavailable Encounter Details Date Type Department Care Team (Late st Contact Info) Description 04/16/2013 Orders Only [facility] Provider, MD Preston [facility], [facility]–[address] [place] [address] Social History Tobacco Use Types Packs/Day Years Used Date Smoking Tobacco: Never Alcohol Use Standard Drinks/Week Comments Yes 0 (1 standard drink = 0.6 oz pur e alcohol) Sex and Gender Information Value Date Recorded Sex Assigned at Male 05/11/2018 9:16 AM REFRIGERATOR TESTER Legal Sex Male 1:34 AM REFRIGERATOR TESTER Gender Identity Not on file Sexual Orientation Straight 05/11/2018 9: 16 AM REFRIGERATOR TESTER documented as of this encounter Plan of [...] RSV, droplet 02/28/2023 02/28/2023 03/14/2023 3:05 AM REFRIGERATOR TESTER COVID: Suspected 03/19/2023 03/19/2023 03/19/2023 9:02 AM REFRIGERATOR TESTER COVID: Suspected 07/08/2023 07/08/2023 07/08/2023 10:20 PM CDT documented as of this encounter Care Teams Merchandise Carrier Relationship Specialty Start Date End Date Jonah Cook MD PCP - General 01/31/10 02/18/22 Cesar Morris MD [address] [place] [address] PCP - General Internal Medicine 02/19/22 04/03/23 Serjio Pierre MD [address] [place] [address] PCP - General Internal Medicine 04/04/23 05/18/23 Chris Gentile MD [address] [facility] [address] [place] [address] PCP - General Geriatric Medicine 09/03/23 10/09/23 Unknown, Notinfile PCP - General 10/19/23 01/11/24 Tiana Hilario NP [facility] [facility] [address] [place] [address] PCP - General Geriatric Medicine 01/12/24 01/19/25 Miscellaneous, Not In File PCP - General 01/20/25 Margarita Jaimes MD Referring Physician Endocrinology Diabetes & Metabolism 08/30/19 Jeevan Gibson MD PhD Referring Physician Cardiology 02/22/20 Olu Reis MD Referring Physician Cardiology 02/22/20 Brant Rodriguez DPM Referring Physician Podiatry 02/22/20 Cathi Freeman MD [phone] [place] [address] Referring Physician Geriatric Medicine 10/09/20 documented as of this encounter
--- OUTSIDE RECORDS SUMMARY | 2025-02-26 19:57 | XMS_ITS | Clinical Summary ---
Author Organization [facility] Address [address] [place] [address] Care Team Providers Care Sheet Writer Name Role Phone Olu Suero MD Primary Care Provider [phone] Allergies Active Allergy Reactions Criticality Noted Date [...] max daily dose of 110. 10 mL 03/09/20 21 Active albuterol sulfate HFA 108 (90 Base) MCG/ACT inhaler every 4 (four) hours as needed. Active menthol (BIOFREEZE) 4 % topical gel Apply 1 Application topically. Active citalopram (CELEXA) 10 MG tablet daily. 01/09/20 24 Active divalproex EC (DEPAKOTE) 250 MG tablet 2 (two) times daily. 01/05/20 24 Active Docusate Sodium (DSS) 100 MG Cap Take 100 mg by mouth 2 (two) times daily. Active ELIQUIS 5 MG tablet 2 (two) times daily. Active ENTRESTO 24-26 MG tablet 2 (two) times daily. Active finasteride (PROSCAR) 5 MG tablet daily. Active methenamine (HIPREX) 1 g tablet 01/09/20 Active metoprolol succinate ER (TOPROL-XL) 25 MG 24 hr tablet 01/20/20 24 Active magnesium hydroxide (MILK OF MAGNESIA CONCENTRATE) 2400 MG/10ML suspension Take 15 mLs by mouth daily. Active omeprazole (PRILOSEC) 20 MG capsule Take 1 capsule (20 mg total) by mouth daily. Active ondansetron (ZOFRAN-ODT) 4 MG disintegrating tablet every 8 (eight) hours as needed. Active spironolactone (ALDACTONE) 25 MG tablet daily. Active torsemide (DEMADEX) 10 MG tablet daily. 08/17/19 Active Polyethyl Glycol-Propyl Glycol (SYSTANE) 0.4-0.3 % [...] Inject into the skin every evening. Active acetaminophen (TYLENOL) 325 MG tablet every 8 (eight) hours. 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 Sinus tachycardia 05/31/2021 Falls 03/07/2021 Diabetes mellitus 07/04/2020 Overview (03/07/2021): Last Assessment & Plan: Continue insulin. Dermatitis 04/27/2019 Overview (03/07/2021): Last Assessment & Plan: No evidence of cellulitis. Moisturize with vaseline. Use OTC cortisone OTC. Myalgia 04/27/2019 Acute cystitis 01/20/2019 Low back pain 01/19/2019 Overview (03/07/2021): Last Assessment & Plan: Will check urinalysis with reflex to culture Obesity (BMI 30-39.9) 08/28/2018 Neuropathy 03/24/2018 Weakness generalized 02/27/2018 Hyperlipidemia associated with type 2 diabetes m ellitus 11/26/2017 Overview (03/07/2021): Last Assessment & Plan: Continue statin, work on glycemic control Parkinsonism 11/26/2017 Overview (03/07/2021): Last Assessment & Plan: Continue sinemet. Follow with Neurology. Adjustment and management of cardiac pacemaker 0 11/03/2017 Basal cell carcinoma (BCC) of skin of ear 2017 Basal cell carcinoma (BCC) of religion region 10/2017 History of nonmelanoma skin cancer 02/25/2017 Neoplastic disease 02/25/2017 Seborrheic keratoses 02/25/2017 Laryngopharyngeal reflux 08/26/2016 Obstructive sleep apnea syndrome 08/26/2016 Gastroesophageal reflux disease without esophagi tis 08/26/2016 Uncontrolled type 2 diabetes mellitus with hyper glycemia 05/22/2016 Overview (03/07/2021): Last Assessment & Plan: [...] evaluation and modified barium swallow. Hydrocephalus 05/03/2014 Dementia 02/18/2014 Overview (03/07/2021): Last Assessment [...] is controlled. Continue current regimen. Diabetic hypoglycemia 03/26/2013 Gonadotropin deficiency 05/22/2012 Onychomycosis due to dermatophyte 05/04/2012 Skin callus 05/04/2012 Malignant neoplasm of prostate 08/07/2010 Atrial flutter 07/24/2010 Overview (03/07/2021): ATRIAL FIBRILLATION Last Assessment & Plan: Continue rate control. Continue anticoagualtion. Complete atrioventricular block 07/24/2010 Encounters Date Type Department Care Team Description 02/08/[address] [address] Alethea Harrington PA Blood Pressure 12/20/2024 11:05 AM CDT Allied Health/Nurse Visit [address] [address] Olu Suero MD Remote Device Check 11/30/2024 2:00 PM CDT Office Visit [address] [address] Alethea Harrington PA Sick Sinus Syndrome (BS Pacer) 11/30/2024 Travel from Last 3 Months Immunizations Immunization Administration Dates Next Due Tdap (Boostrix) 03/07/2021 Family History Medical History Relation Comments MS Father Relation Status Comments Father Mother Social [...] Sign Reading Time Taken Comments Blood Pressure 110/56 11/30/2024 1:05 PM CDT Pulse 70 11/30/2024 1:05 PM CDT Temperature 36.7 C (98.1 F) 03/09/2021 11:10 AM 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 Respiratory Rate 22 03/09/2021 11:10 AM 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 Oxygen Saturation 98% 11/30/2024 1:05 PM CDT Inhaled Oxygen Concentration - - Weight 110.7 kg (244 lb) 11/30/2024 1:05 PM CDT Height 190.5 cm (6' 3) 11/30/2024 1:05 PM CDT Body Mass Index 30.5 11/30/2024 1:05 PM CDT Plan of Treatment Upcoming Encounters Date Type Department Care Team (Late st Contact Info) Description 03/21/2025 12:15 PM 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 Allied Health/Nurse Visit [facility], [address] [address] Olu Suero MD [facility]. [facility] [address] [place] [address] 12/06/2025 1:30 PM CDT Office Visit [facility], [facility] [address] [place] [address] Olu Suero MD [facility]. [facility] [address] [place] [address] Health Maintenance Due Date Last Done Comments Diabetes: Retinopathy Eye Exam 01/26/1958 Zoster Vaccines (1 of 2) 01/26/1988 Annual Medicare Wellness Visit 2003 RSV Immunization or 60+ Years (1 - 1-dose 75+ series) 2013 Lipid Panel 01/15/2022 01/15/2021 Hemoglobin A1C 10/09/2023 07/09/2023, 02/07, 04/03/2022, Additional history exists PHQ-2 (Physician Grimes) 03/10/2024 COVID-19 Vaccine ( season) 2024 12/07/2021, 07/27/2021, 06/25/2021 Influenza Adult (#1) 2024 12/04/2018, 01/23/2018, 12/20/2016, Additional history exists DTaP, Tdap and Td Vaccines (2 - Td or Tdap) 03/07/2031 03/07/2021 Pneumococcal Vaccine: 50+ Years Completed 11/14/2021, 07/17/2015, 11/15/2010 Hepatitis A Vaccines Aged Out No long er eligible based on patient's age to complete this topic Meningococcal B Vaccine Aged Out No l onger eligible based on patient's age to complete this topic Meningococcal Vaccine Aged Out No gill lindsey eligible based on patient's age to complete this topic RSV Immunizations Under 20 Months Aged Out No longer eligible based on patient's age to complete this topic Medical Devices Implanted Type Area Carbon Paper Coating Supervisor Device Identifier Shelf Expiration Date Model / Serial / Lot Rv Lead Ipgwtnd-Nd-3/ 16/2004 Implanted:Qty : 1 on 06/24/2003 by Jeevan Gibson MD Lead Implant Ventricle [employer] [id number] / [id number] / Ra Lead Sqiynvd-Iv-5/ 16/2004 Implanted:Qty : 1 on 06/24/2003 by Jeevan Gibson MD Lead Implant Atrium [employer] [id number] / [id number] / Lv Lead Hwzxszz-Gz-2/ 30/2023 Implanted:Qty : 1 on 06/06/2022 by Jared Hernandez MD Lead Implant [employer] [id number] / [id number] / Description:CS lead Pacemaker-Bs- [facility]06/06 Implanted:Qty : 1 on 06/06/2022 by Jared Heranndez MD Pacemaker [employer] [id number] / [id number] / Description:Not on advisory Procedures Procedure Name Priority Date/Time Associated Diagnosis Comments HEMOGLOBIN, GLYCOSYLATED Routine 09/06/2021 6:20 PM CDT DM hyperosmolarity type II from Last 3 Months or Most Recently Relevant to Health Maintenance Results * (ABNORMAL) HEMOGLOBIN, GLYCOSYLATED (09/06/2021 6:20 PM CDT) HGB A1C 6.3(H) <5.7 % 09/07/2021 12:52 AM CDT [facility] Comment: ADA GUIDELINES 2010 5.7 TO 6.4% INCREASED RISK OF DIABETES > OR = 6.5% CONSISTENT WITH DIABETES ESTIMATED AVG GLUCOSE 134 mg/dL 09/07/2021 12:52 AM CDT [facility] 09/06/2021 6:20 PM CDT Deborah Parrish NP LABORATORY Final Result Performing Organization Address City/State/[facility] de Phone Number [facility] [address] [place] [address], from Last 3 Months or Most Recently Relevant to Health Maintenance Additional Health Concerns Infection Onset Date Last Indicated ESBL - Extended Spectrum Bet a-lactamase Comment:09/06/21 +ESBL Urine 09/09/2021 09/09/[address] [place] [address] [place] [id number] [facility] Advance Directives Documents on File Type Date Recorded Patient Safety Lamp Keeper Expl anation Advance Directives and Living Will 03/11/2021 4:34 PM 06/23/2014 Signed PO A for Health Care * Full Code (Latest Code Status on File) Date Activated Date Inactivated Comments 03/07/2021 2:43 AM 03/09/2021 6:24 PM Care Teams Sheet Writer Relationship Specialty Start Date End Date Olu Suero MD [address] [place] [address] PCP - General CLINICAL CARDIAC ELECTROPHYSIOLOGY 08/24/24
--- OUTSIDE RECORDS SUMMARY | 2025-02-26 19:57 | XMS_ITS | Encounter Summary ---
Author Organization [facility] Address [address] [place] [address] Phone Care Team Providers Care Senior Javascript Engineer Name Role Phone Jonah Cook MD Primary Care Provider [phone] Margarita Jaimes MD Unavailable [phone] Jeevan Gibson MD PhD Unavailable [phone] Olu Reis MD Unavailable [phone] Brant Rodriguez DPM Unavailable + [phone] Cathi Freeman MD Unavailable Cesar Morris MD Primary Care Provider [phone] Serjio Pierre MD Primary Care Provider +- [phone] Chris Gentile MD Primary Care Provider + [phone] Unknown, Notinfile Primary Care Provider Unavail able Tiana Hilario NP Primary Care Provider [phone] Miscellaneous, Not In File Primary Care Provider Unavailable Encounter Details Date Type Department Care Team (Late st Contact Info) Description 10/16/2015 Orders Only [facility] Provider, MD [place] [address] Social History Tobacco Use Types Packs/Day Years Used Date Smoking Tobacco: Never Alcohol Use Standard Drinks/Week Comments Yes 0 (1 standard drink = 0.6 oz pur e alcohol) Sex and Gender Information Value Date Recorded Sex Assigned at Male 05/11/2018 9:16 AM HEALTH CARE LIAISON Legal Sex Male 1:34 AM HEALTH CARE LIAISON Gender Identity Not on file Sexual Orientation Straight 05/11/2018 9: 16 AM HEALTH CARE LIAISON documented as of this encounter Plan of [...] RSV, droplet 02/28/2023 02/28/2023 03/14/2023 3:05 AM HEALTH CARE LIAISON COVID: Suspected 03/19/2023 03/19/2023 03/19/2023 9:02 AM HEALTH CARE LIAISON COVID: Suspected 07/08/2023 07/08/2023 07/08/2023 10:20 PM CDT documented as of this encounter Care Teams Senior Javascript Engineer Relationship Specialty Start Date End Date Jonah Cook MD PCP - General 01/31/10 02/18/22 Cesar Morris MD [address] [place] [address] PCP - General Internal Medicine 02/19/22 04/03/23 Serjio Pierre MD [address] [place] [address] PCP - General Internal Medicine 04/04/23 05/18/23 Chris Gentile MD [address] [facility] [address] [address] [place] [address] PCP - General Geriatric Medicine 09/03/23 10/09/23 Unknown, Notinfile PCP - General 10/19/23 01/11/24 Tiana Hilario NP [facility] [facility] [address] [place] [address] PCP - General Geriatric Medicine 01/12/24 01/19/25 Miscellaneous, Not In File PCP - General 01/20/25 Margarita Jaimes MD Referring Physician Endocrinology Diabetes & Metabolism 08/30/19 Jeevan Gibson MD PhD Referring Physician Cardiology 02/22/20 Olu Reis MD Referring Physician Cardiology 02/22/20 Brant Rodriguez DPM Referring Physician Podiatry 02/22/20 Cahti Freeman MD [id number] [place] [address] Referring Physician Geriatric Medicine 10/09/20 documented as of this encounter
[2025-02-26 20:33] LABS: Hematocrit 39.0 % (42.0-52.0); Hemoglobin 12.7 g/dL (14.0-18.0); Immature Granulocyte Percent A 0.4 % (0-0.5); Lymphocytes Absolute Auto 1.92 K/mm3 (0.9-3.2); Mean Corpuscular HGB Conc 32.6 g/dl (32-36); Mean Corpuscular Hemoglobin 29.9 pg (26-34); Mean Corpuscular Volume 91.8 fl (80-100); Nucleated Red Blood Cells Absolute Auto 0.000 K/mm3 (0.0-0.012); Nucleated Red Blood Cells Perc 0.0 % (0.0-0.2); Platelet Count Result 228 k/mm3 (150-375); Red Blood Count 4.25 M/mm3 (4.6-6.20); White Blood Count 10.7 K/mm3 (4.5-10.0)
[2025-02-26 20:59] LABS: INR 1.2; Prothrombin Time 14.9 Seconds (11.1-14.7)
--- NOTE | 2025-02-26 21:22 | PC.NURSE ---
attempted to call the RN from the pt's living facility to update and also recieve additional information on the patient's baseline status and reason for ER visit. Nurse was unavailable to receive call but states she attempt to call later.
[2025-02-26 21:43] VITALS: BP 127/62; PULSE 70; RESP 24; TEMP 36.8; O2SAT 98
[2025-02-26] MEDS: LORazepam INJ (*CRX) 2 MG/ML VIAL 1 MG IV PUSH (22:02)
[2025-02-26 22:04] VITALS: PULSE 70; RESP 19
[2025-02-26 22:42] LABS: Alanine Aminotransferase 14 U/L (6-50); Albumin Level 3.8 g/dL (3.5-5.1); Alkaline Phosphatase 89 U/L (38-126); Anion Gap 5 mmol/L (4-12); Aspartate Amino Transferase 26 U/L (17-59); Bilirubin,Total 0.7 mg/dL (0.2-1.3); Blood Urea Nitrogen 36 mg/dL (9-20); Calcium 9.1 mg/dL (8.4-10.2); Carbon Dioxide 30 mmol/L (22-30); Chloride 100 mmol/L (98-107); Estimated CRCL calculation 58 ml/min; Estimated Glomerular Filt Rate > 60; Glucose 186 mg/dL (65-110); Lipase 35 U/L (23-300); Potassium 4.8 mmol/L (3.4-5.0); Sodium 135 mmol/L (137-145); Total Protein 7.9 g/dL (6.3-8.2)
--- NOTE | 2025-02-26 22:53 | PC.NURSE ---
spoke with patient's Marissa [phone] with updates.
[2025-02-26 23:34] LABS: Add Urine Microscopic? YES; Appearance Urine Cloudy (Clear); Glucose Urine UA Negative (Negative); Leukocyte Esterase Ur 3+ LEU/UL (Negative); Need Manual Microscopic Reviewed; Nitrate Urine Negative (Negative); Non Pathogenic Casts 0-2; Specific Grav Ur 1.014 (1.001-1.035)
--- NOTE | 2025-02-27 01:41 | PC.NURSE ---
spoke with Arnold from [facility] in regards to patient discharge. patient discharged pending transfer back to facility via EMS, Arnold aware of patient's status
[2025-02-27 02:26] VITALS: BP 122/89; PULSE 98; RESP 22; O2SAT 97
== END 2025-02-27 02:28 ==
PROVIDERS: Emergency Provider Emergency Medicine; PCP Internal Medicine
DX: S22.078A Other fracture of T9-T10 vertebra, initial encounter for closed fracture (principal); N39.0 Urinary tract infection, site not specified; F03.90 Unspecified dementia, unspecified severity, without behavioral disturbance, psychotic disturbance, mood disturbance, and anxiety; M47.816 Spondylosis without myelopathy or radiculopathy, lumbar region; M47.814 Spondylosis without myelopathy or radiculopathy, thoracic region; K80.20 Calculus of gallbladder without cholecystitis without obstruction; Z79.4 Long term (current) use of insulin; Z79.899 Other long term (current) drug therapy; Z79.01 Long term (current) use of anticoagulants; W19.XXXA Unspecified fall, initial encounter
CPT/HCPCS: 36415; 70450; 71045; 72125; 72128; 72131; 72170; 73030; 80053; 81001; 83690; 85025; 85610; 87077; 87086; 87186; 96374; 99284; J2060